=== PATIENT | female | born 1990 | race Caucasian/White ===

== ENCOUNTER 2021-11-01 09:35 | Outpatient (CLI) | payer BC, SELFPAY ==
--- OUTSIDE RECORDS SUMMARY | 2021-10-28 10:21 | XMS_ITS | Continuity of Care Document ---
:1990 Author Care Team Providers Name Role Phone SEEN Primary Care Physician Unavailable Hannah Schmitz CNM Attending Physician Unavailable Allergies, Adverse Reactions, Alerts Allergen Type Severity Reaction Last Verified Status Updated Adhesive Adverse Moderate itchy and October 26, Yes Active Reaction red 2021 Amoxicillin Allergy Mild rash October 26, Yes Active 2021 Lidocaine Allergy Severe hives October 26, Yes Active 2021 Fish Allergy Adverse Moderate just salmon October 26, Yes Acti ve Reaction 2021 Azithromycin Allergy Mild rash October 26, Yes Active 2021 Social History Smoking Status Status Start Date End Date Date of Observat ion Never smoked tobacco October 26, 2021 11:02am (finding) Observation Status Date of Observation Patient currently August 15, 2021 1:06pm Additional Data Assigned Sex Female Medications Medication Status Dose Units Route Directions Qty Days Start End Ins tructions Date Date Calcium Active 0 PO Daily Carbonate (Calcium) 600 Mg TAB Cholecalcifero Active 4000 UNIT OR Daily l (Vitamin D-3) 2,000 Unit TAB Doxylamine Active 25 MG PO Bedtime as 30 Succinate needed (Sleep) (Unisom) 25 Mg TAB Magnesium Active 1 TAB PO Daily as (Magnesium 250 needed Mg) 1 Tab TAB Vit Active 1 OR W/ Ferrous Fumara ( Multi +Dha) +Dha CAP Diphtheria/Tet Discontin 0.5 ML IM Once 1 August anus/Acell ued , , Pertussis 2021 2021 (Adacel) 0.5 3:39pm 3:51pm Ml INJ Immunizations Immunization Event Not Given 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 Lot Number Vac cine Date Reason Number Informatio n Statement (VIS) Deta il Tdap August 05 SANOFI [id number] (adolescent/adul , ) 2021 Procedures Procedure Date Performed Status CULTURE SCREEN ONLY October 05, 2021 completed STREP B DNA AMP PROBE October 05, 2021 completed OB US FOLLOW-UP PER FETUS October 05, 2021 completed BIOPHYS PROFIL W/O NST October 05, 2021 completed BIOPHYS PROFIL W/O NST October 11, 2021 completed OFFICE O/P EST LOW 20-29 MIN September 27, 2021 completed NON-STRESS TEST September 27, 2021 completed BIOPHYS PROFIL W/O NST September 27, 2021 completed Ob Bpp W/Ob Follow Up October 05, 2021 completed Ultrasound for October 11, 2021 completed biophysical profile Ultrasound for September 27, 2021 completed biophysical profile Ultrasound for October 19, 2021 completed biophysical profile Ultrasound for October 26, 2021 completed biophysical profile Relevant Diagnostic Tests and/or Laboratory Data Laboratory Results Test Date/Time Result Interpretation Reference Result Comment Performing Site Range Group B October 05, NEGATIVE NEGATIVE No Group B [facility] Streptococc 2021 Streptococcus 1999 [facility] DNA 1:33pm agalactiae DNA [facility] [address] Probe detected.A negative result does not rule out the presence of amplification inhibitors or assay specific nucleic acid in concentrations below the level of assay detection. Hemoglobin October 05, 14.3 12.0-16.0 [facility] [place] 2021 1999 [facility] 1:33pm [facility] [address] Diagnostic Imaging Reports Report Dictated Date/Time Dictated By Status September 27, 2021 2:26pm Natasha Cardenas MD [facility] [address] [place] [address] ~DEPARTMENT OF DI AGNOSTIC IMAGING~ Patient: CLAUDIA MARADIAGA MR #: [id number] : 1990 Age: 31 Sex: F Ordering MD: EPI ANTHONY Rm/ Bed: Loc: RAD Report #: [id number] US/OB BPP Date: 09/27/21 Signed For Patients: As a result of the entury Cures Act, medical imaging exams and procedure reports are release d immediately into your electronic medical record. You may view this repo rt before your referring provider. If you have questions, please contact y our health care provider. INDICATION: Mild polyhydramnios COMPARISON: 09/13/2021 TECHNIQUE: Real time juarez scale imaging of the fet us was performed. Without non-stress testing. FINDINGS: Sonographic imaging demonstrates a sing le living intrauterine gestation. Fetus demonstrates a regular cardiac ra te of 141 beats per minute. Fetus has a vertex position. The amniotic flu id volume appears increased and there is a single deepest pocket measur ement of 8.7 cm. AUGUSTA 31.4 cm. The fetus was active and demonstrated jonn l breathing movements. There was normal flexion and extension of the eveline nk and extremities. IMPRESSION: Normal biophysical profile score of 8 o ut of 8. Mild polyhydramnios with AUGUSTA measuring 31.4 cm. Incidentally noted is the umbilical cor d wrapping around the baby`s neck x2. Dictated by Natasha Cardenas MD @ 2 1:36:01 PM (Electronically Signed) Dictated By: NATASHA CARDENAS MD Signed By: NATASHA CARDENAS MD Report Dictated Date/Time Dictated By Status October 05, 2021 1:28pm [place] [address] ~DEPARTMENT OF DI AGNOSTIC IMAGING~ Patient: CLAUDIA MARADIAGA MR #: Candice [id number] : 1990 Age: 31 Sex: F Ordering MD: PENELOPE SCHMITZ CNM m/Bed: Loc: RAD Report #: [id number] US/OB BPP W/OB FOLLOW UP Date: 10/05/21 Signed For Patients: As a result of the entury Cures Act, medical imaging exams and procedure reports are release d immediately into your electronic medical record. You may view this repo rt before your referring provider. If you have questions, please contact y our health care provider. OB ULTRASOUND INDICATION: Covid during . TECHNIQUE: Transabdominal obstetric ul trasound. COMPARISON: Obstetric ultrasound 2021. MICHELLE by LMP: 10/30/2021. Gestational ag e: 36 w, 3d. 1. FINDINGS: Cervix: Not visualized. positioning: Vertex. Amniotic fluid: 7.5 cm SDP. Biophysical profile: 8/8. Gross body movements: 2. tone: 2. Respiratory activity: 2. Amniotic fluid SDP: 2. Placenta: Anterior. heart rate: 113-125. BPD: 9.2 cm, 37 w, 3 d, 85%. HC: 34.3 cm, 39 w, 4 d, 89%. AC: 33.3 cm, 37 w, 1 d, 81%. FL: 7.0 cm, 35 w, 5 d, 28%. EFW: 3118 g, 6 lb, 14 oz. age by this US: 37 w, 3 d. MICHELLE by this US: 10/23/2021. Percentile by MICHELLE: 72%. IMPRESSION: 1. Biophysical profile score 8/8. 2. heart rate is 113-125 beats p er minute. 3. Amniotic fluid index is 22.8 cm. Shaniqua Dias M.D. Diagnostic Radiologist [email or web address] PAUL/savi / be/Dictated by: Shaniqua Dias MD @ 10/05 8:36:00 PM (Electronically Signed) Dictated By: SHANIQUA DIAS MD Signed By: SHANIQUA DIAS MD Report Dictated Date/Time Dictated By Status October 11, 2021 10:00am Natasha Cardenas MD [address]~ Patient: CLAUDIA MARADIAGA MR #: Candice [id number] : 1990 Age: 31 Sex: F Ordering MD: PENELOPE SCHMITZ CNM R m/Bed: Loc: RAD Report #: [id number] US/OB BPP Date: 10/11/21 Signed For Patients: As a result of the entury Cures Act, medical imaging exams and procedure reports are release d immediately into your electronic medical record. You may view this repo rt before your referring provider. If you have questions, please contact y our health care provider. INDICATION: COVID IN COMPARISON: 10/05/2021 TECHNIQUE: Real time juarez scale imaging of the fet us was performed. Without non-stress testing. FINDINGS: Sonographic imaging demonstrates a sing le living intrauterine gestation. Fetus demonstrates a regular cardiac ra te of 131 beats per minute. Fetus has a vertex position. The amniotic fl uid volume appears normal and there is a single deepest pocket measurement of 7.9 cm. The fetus was active and demonstrated normal breathing movements . There was normal flexion and extension of the trunk and extremities. IMPRESSION: Normal biophysical profile score of 8 o ut of 8. Dictated by Natasha Cardenas MD @ 10/11/2021 10:58:19 AM (Electronically Signed) Dictated By: NATASHA CARDENAS MD Signed By: NATASHA CARDENAS MD Report Dictated Date/Time Dictated By Status October 19, 2021 9:58am [place] [address] ~DEPARTMENT OF DI AGNOSTIC IMAGING~ Patient: CLAUDIA MARADIAGA MR #: Candice [id number] : 1990 Age: 31 Sex: F Ordering MD: PENELOPE SCHMITZ R m/Bed: TRIAGE-1 Loc: OB Report #: [id number] US/OB BPP Date: 10/19/21 Signed For Patients: As a result of the entury Cures Act, medical imaging exams and procedure reports are release d immediately into your electronic medical record. You may view this repo rt before your referring provider. If you have questions, please contact y our health care provider. INDICATION: DECREASED MOVEMENT TECHNIQUE: Real time juarez scale imaging of the fet us was performed. COMPARISON: 10/11/2021 FINDINGS: Sonographic imaging demonstrates a sing le living intrauterine gestation. Fetus demonstrates a regular cardiac ra te of 157 beats per minute. Fetus has a vertex position. The placenta lie s left anterior. Amniotic fluid volume appears upper limits normal and there is a single deepest pocket of 8.6 cm. AUGUSTA 25.2 cm. The fetus was active and demonstrated n ormal breathing movements. There was normal flexion and extension of the trunk and extremities. IMPRESSION: Normal biophysical profile score 8/8. Upper limits normal amniotic fluid with four-quadrant AUGUSTA 25.2 cm. Dictated by Natasha Cardenas MD @ 2 10:01:53 AM (Electronically Signed) Dictated By: NATASHA CARDENAS MD Signed By: NATASHA CARDENAS MD Report Dictated Date/Time Dictated By Status October 26, 2021 Natasha Cardenas MD completed 10:12am [address]~ Patient: CLAUDIA MARADIAGA MR #: [id number] : 1990 Age: 31 Sex: F Ordering MD: PENELOPE SCHMITZ CNM m/Bed: Loc: RAD Report #: [id number] US/OB BPP Date: 10/26/21 Signed For Patients: As a result of the entury Cures Act, medical imaging exams and procedure reports are release d immediately into your electronic medical record. You may view this repo rt before your referring provider. If you have questions, please contact y our health care provider. INDICATION: COVID IN COMPARISON: none TECHNIQUE: Real time juarez scale imaging of the fet us was performed. Without non-stress testing. FINDINGS: Sonographic imaging demonstrates a sing le living intrauterine gestation. Fetus demonstrates a regular cardiac ra te of 128 beats per minute. Fetus has a vertex position. The amniotic flu id volume appears normal and there is a single deepest pocket measurement of 6.0 cm. Increased echoes noted within the amniotic fluid. The fetus wa s active and demonstrated normal breathing movements. There was normal f lexion and extension of the trunk and extremities. IMPRESSION: Normal biophysical profile score of 8 o ut of 8. Increased echoes within the amniotic fl uid, likely representing normal vernix caseosa although meconium contam ination not excluded. Dictated by Natasha Cardenas MD @ 2 10:20:58 AM (Electronically Signed) Dictated By: NATASHA CARDENAS MD Signed By: NATASHA CARDENAS MD Vital Signs Vital Reading Result Reference Range Collection Date/ Time Height 68 [in_i] October 05, 2021 1 :26pm Height 172.72 cm October 05, 2021 1 :26pm Weight 155 [lb_av] October 05, 2021 1 :26pm Weight 70.263477 kg October 05, 2021 1 :26pm Body Temperature 97.7 [degF] October 05, 2021 1:26pm Body Temperature 36.5 Janice October 05, 2021 1:26pm BP Systolic 110 mm[Hg] October 05, 2021 1 :26pm BP Diastolic 66 mm[Hg] October 05, 2021 1 :26pm Heart Rate 82 /min October 05, 2021 1 :26pm Respiratory rate 16 /min October 05, 2021 1:26pm Body surface area 1.83 m2 October 05, 2021 1:26pm BMI (Body Mass Index) 23.6 kg/m2 October 05, 2021 1:26pm Height 68 [in_i] October 11, 2021 9 :55am Height 172.72 cm October 11, 2021 9 :55am Weight 156 [lb_av] October 11, 2021 9 :55am Weight 70.454292 kg October 11, 2021 9 :55am Body Temperature 97.1 [degF] October 11, 2021 9:55am Body Temperature 36.17 Janice October 11, 2021 9:55am BP Systolic 112 mm[Hg] October 11, 2021 9 :55am BP Diastolic 72 mm[Hg] October 11, 2021 9 :55am Heart Rate 69 /min October 11, 2021 9 :55am Respiratory rate 18 /min October 11, 2021 9:55am Body surface area 1.84 m2 October 11, 2021 9:55am BMI (Body Mass Index) 23.7 kg/m2 October 11, 2021 9:55am Height 68 [in_i] October 26, 2021 10:31am Height 172.72 cm October 26, 2021 10:31am Weight 156 [lb_av] October 26, 2021 10:31am Weight 70.342271 kg October 26, 2021 10:31am Body Temperature 97.6 [degF] October 26, 2021 10:31am Body Temperature 36.44 Janice October 26, 2021 10:31am BP Systolic 110 mm[Hg] October 26, 2021 10:31am BP Diastolic 72 mm[Hg] October 26, 2021 10:31am Heart Rate 75 /min October 26, 2021 10:31am Body surface area 1.84 m2 October 26 10:31am BMI (Body Mass Index) 23.7 kg/m2 October 26, 2021 10:31am Advance Directives Advance Directive Response Recorded Date/Time Has patient completed a No October 26, 2021 11:02am Health Care Directive? Insurance Providers Guarantor Claudia Maradiaga Address [address] [place] [address] Contact Info. Home Phone: Payer Policy Id Coverage Id Subscriber's Subscriber Id Effective E xpiration Name Date Date Blue [id number] Claudia Maradiaga [id number] L [id number] Encounters Encounter Location(s) Arrival/Admit Date Discharge/Depart Date Provider(s) Registered Clinics October 26, 2021 Julieta ANTHONY 10:30am [facility] October 26, 2021 Stephanie ANTHONY - [facility] 10:30am [facility] Registered [place] October 26, 2021 [facility] 9:29am L CNM Departed Clinic [place] October 19, 2021 October 19, 2021 [facility] 9:06am 10:20am L CNM Office Visit [facility] October 11, [address] [facility] 11:00am L CNM Registered [place] October 11, [address] [facility] 9:24am L CNM Office Visit [facility] October 05, 2021 [facility] - [facility] 2:00pm L CNM Registered [place] October 05, [address] [facility] 12:41pm L CNM Departed [facility] September 27, 2021 September 27, 2021 3:35pm Rosangela [facility] 2:34pm L CNM Registered [place] [facility], [facility] Recent Diagnosis Onset Date COVID-19 COVID-19 affecting , antepartum care Assessments at 36.3 weeksRoutine OB visitBPP done for hx of covid in [id number] at 37.2 weeksRoutine OB [id number] at 39 3/7 weeks gestationRoutine OB Plan of Treatment Future Tests Future scheduled test information is unavailable Pending Tests Pending diagnostic test information is unavailable Future Visits Future appointment information is unavailable Referrals to Other Providers Referral information is unavailable Future Procedures Procedure Name Scheduled Date US OB BPP US OB BPP US OB BPP US OB BPP US OB BPP Future Medications Future medication information is unavailable Patient Instructions Patient instructions are unavailable
--- NOTE | 2021-11-01 09:45 | US_ITS ---
Final Report Patient: ABIGAIL SMALLS Facility:?[facility] Patient ID:?[id number] Site Patient ID:?[id number]. Site :?1990 Study:? OB Pelvis BPP-11/01/2021 10:38:31 AM Ordering Physician:?Nadir Bhatt Final Report: INDICATION: Post for dates, positive COVID TECHNIQUE: Ultrasound OB pelvis transabdominal biophysical profile COMPARISON: 10/26/2021 FINDINGS: Sonographic imaging demonstrates a single living intrauterine gestation. Fetus demonstrates a regular cardiac rate of 129 beats per minute. Fetus has a vertex orientation. The placenta lies anterior.. Amniotic fluid volume appears normal with single deepest pocket measuring 5.4 cm. breathing movements, motion, and tone were all observed. IMPRESSION: Single viable intrauterine with a biophysical profile 12/12. Dictated by Rodney Rogers MD @ 11/01/2021 10:59:57 AM (Electronic Signature)
== END 2021-11-01 09:36 | disposition home or self-care (01) ==
LOC: US 09:36
PROVIDERS: Visit Provider Advanced Practice Midwife
DX: O98.519 Other viral diseases complicating pregnancy, unspecified trimester (principal); U07.1 COVID-19
CPT/HCPCS: 76819

== ENCOUNTER 2021-11-08 07:08 | Inpatient (IN) | payer BC, SELFPAY ==
[2021-11-08] VITALS (29 sets, daily range): BP systolic 104–146; BP diastolic 52–81; PULSE 56–133; RESP 16–20; TEMP 36.5–36.6; O2SAT 81–98; BMI 25.3
[2021-11-08 08:35] LABS: SARS PCR* Negative SARS-CoV-2 (Negative)
--- NOTE | 2021-11-08 08:57 | W.PM.LDBA ---
Subjective History of Present Illness Narrative: Patient is being admitted to Labor and Delivery for IOL for post dates. She is a 31 year old at 41.2 weeks gestation. Her full history and physical was dictated by Jose L Cabrera CNM on 10/11/21. Please see this for details. OB Problem List Blood type: O positive 1. Transfer OB at 12 weeks and 2 days 2. History of PDA repair at 10 days of age.? Twin, born prematurely at 27 weeks 3. History of depression:? Therapy monthly 4. Covid positive on 06/07/21.? Quarantine through 06/17/21.? Covid instruction protocol completed by RNCC. ?? ? Level 2 ultrasound: Done ?? ? Growth u/s at 32 weeks: 84%ile ?? ? Growth ultrasound at 36 weeks: 72% EFW ?? ? Weekly antepartum testing beginning at 36 weeks: BPP ?? ? Induction of labor at 39 weeks:? Declines 5. Mild Poly based on 32 week growth per clinic policy; Does not meet ACOG definition AUGUSTA >30, SDP >12 ?? ? 5/6: AUGUSTA 24.9, SDP 11.5; Plan BPP/fluid measurement repeat next week ?? ? 09/13 AUGUSTA? 27.3, SDP 8.9 ?? ? 10/05 SDP 7.5 ?? ? 10/11? SDP 7.9 ?? ? 10/19 SDP 8.6, AUGUSTA 25.2 Poly, consider IOL 39-39.6 wks if continues OB - H&P: Exam Physical Exam: Vital signs: Pulse BP Pulse Ox 75 130/81 80 L 11/08/21 07:29 11/08/21 07:29 11/08/21 07:29 Constitutional: Constitutional: no acute distress Routine Neck Exam: Neck: Present full ROM Detailed Labor and Delivery Exam: Patient Gravid: yes Dilation (cm): 0 Effacement (%): 50 Cervix position: posterior Consistency: medium Contraction frequency (min): 6 (every 6-12 min) Tachysystole: No Contraction intensity: Mild Fetus (Single): Station: -2 Heart Rate Baseline: 125 Monitor Accelerations: Present Monitor Decelerations: None [facility] Variability: Moderate (11-25) (6-25) Routine Extremities Exam: Extremities: Present full ROM Routine Back/Spine/Pelvis Exam: Back/Spine: full ROM Routine Neurological Exam: Present alert and oriented X3 Routine Psychiatric Exam: Present normal affect and normal thought process OB - Problem Based A/P Additional Plan (1) Elective induction of labor planned: Status: Acute (2) Post term , 41 weeks: Status: Acute Plan ASSESSMENT:? at 41.2 weeks gestation? GBS negative? Uncomplicated ? Postterm IOL? ?? PLAN:?? 1. Reviewed risks and benefits of IOL with Pitocin vs Cytotec (vaginal or PO) vs expectant management. Pt prefers vaginal Cytotec. Pitocin to follow if needed.?Discussed patient concerns if IOL doesn't induce labor and options of going home vs. other IOL options (Cervidil, Cook catheter). 2. Candidate for analgesia of choice. Planning unmedicated .?? 3. Anticipate ?? 4. IV if indicated 5. Intermittent monitor per policy for Cytotec. ? Delivery/Labor/Induction Plan Plan: induction Induction method: per misoprostol protocol
[2021-11-08] MEDS: miSOPROStoL 25 MCG/0.25 TABLET VAGINAL ×2 (09:06→13:08)
[2021-11-08 10:27] LABS: Hemoglobin* 14.1 gm/dL (12.0-16.0)
[2021-11-08 12:09] LABS: Hepatitis B Surface Antibody* Positive (Negative)
[2021-11-08] MEDS: LACTATED RINGERS 1000 ML 1,000 ML 125 ML IV (22:43)
--- NOTE | 2021-11-08 22:50 | P.OBPN_ITS ---
Pain Control Pain control: nitrous oxide Comments: Evaluated patient at 1720 for possible Cytotec placement. At that time she was geovanna regularly with painful contractions. SVE 8/90/0. She continued to labor on her own from there. She has experienced significant hip pain bilaterally for most of this time. AROM at 1951 with clear fluid. Began pushing at 2011. She has changed position frequently and pushing in multiple different positions. She is using nitrous intermittently. She was making progress initi ally but has not much descent in the last hour or so. Baby is potentially asynclitic or OP. Patient is feeling defeated. Options presented to proceed with position changes and pushing, get an epidural/intrathecal, or to consult with OB for a . Patient opted to get an epidural/intrathecal at this time. Contractions Monitor mode: External Contraction frequency: 2 (every 1.5-3 min) Contraction pattern: Regular Contraction intensity: Strong/Firm Pelvic Exam Dilation (cm): 10 Effacement (%): 100 Station: +2 Comments: Small part of an anterior cervix felt with this exam. Questionable if it is starting to swell. Fetus (Single) Amniotic Membrane Status: AROM status: Category ll Comments: Recurrent variable decelerations with most contractions down to the 90 with good retunr to baseline, good variability, and accelerations present. Baseline 125- 130. Assessment and Plan Assessment: active labor Plan: continue present management and other (epidural)
[2021-11-08] MEDS: LACTATED RINGERS 1000 ML 1,000 ML IV (23:33)
[2021-11-09] VITALS (34 sets, daily range): BP systolic 93–129; BP diastolic 52–81; PULSE 55–80; RESP 12–16; TEMP 36.4–37.2; O2SAT 92–98
[2021-11-09] MEDS: LACTATED RINGERS 1000 ML 1,000 ML 125 ML IV (00:38)
--- NOTE | 2021-11-09 00:53 | PM.OBPNL ---
Pain Control Time Seen by Provider: 00:00 Date Seen: 11/09/21 Comments: I was called by Janeen Cabrera CNM with report of prolonged deceleration after patient received intrathecal. She has been completely dilated since 8:50 p.m.. She was noted to have meconium-stained fluid during her 2nd stage. She pushed initially without any regional anesthesia, but experienced severe hip pain. Immediately after intrathecal, she had a prolonged deceleration into the 70s several minutes. Thereafter, well baseline around 130 was reestablished, the fetus exhibited recurrent late decelerations. After proximally 1/2 hour, late decelerations became intermittent, but occasionally prolonged. Contractions Monitor mode: External Contraction frequency: 2 (every 1.5-3 min) Contraction pattern: Regular Contraction intensity: Strong/Firm Pelvic Exam Dilation (cm): Ten Station: +1-2 2 Comments: Suspected OP presentation, no descent with maternal expulsive efforts Fetus (Single) Amniotic Membrane Status: AROM status: Category ll Comments: as above Assessment and Plan Comments: Nonreassuring status in the setting of prolonged 2nd stage. Now with arrest of descent. I recommended for these indications. We discussed risks of procedure, including bleeding, thromboembolism, infection, uterine scarring, prolonged recovery. Consent form signed by patient.
--- NOTE | 2021-11-09 01:23 | PM.OBPNL ---
Pain Control Comments: Patient received requested intrathecal at 2324. At 2333 a deceleration to 60-70's noted that lasted for 9 minutes before returning to 90-115. Blood pressures stable during this time. Dr. Zavaleta called and presence requested at 2337. Chao lagos called at 2340. FHT returned to a baseline of 100-120 with variable decelerations after every contraction. Dr. Zavaleta arrived on the unit at 2356 and was present in the room to evaluate at 0004. FHT recovered enough to begin pushing again around 0025. No descent noted with contractions and patient was no longer able to feel contractions or pressure to be able to effectively push. variable decelerations had decreased in frequency before pushing began but did return with pushing. Patient consented with Dr. Zavaleta for a at 0045. Contractions Monitor mode: External Contraction frequency: 2 (every 1.5-3 min) Contraction pattern: Regular Contraction intensity: Strong/Firm Fetus (Single) Amniotic Membrane Status: AROM status: Category ll Assessment and Plan Assessment: other ( intolerance to labor) Plan:
[2021-11-09] MEDS: ePHEDrine sulfate 5 MG/ML inj 10 MG IVP (01:50)
--- NOTE | 2021-11-09 02:02 | P.OBPRC_ITS ---
Procedure Pre-op/Post-op diagnoses: Pre-Op/Post-Op Diagnoses Operation Date: 11/09/21 00:15 <No data on this case meets the specified criteria> Procedure Done: Global Procedure Details: Procedures Operation Date: 11/09/21 00:15 Actual Procedure Side Surgeon p Section Not Applicable Kenia Zavaleta MD Estimated blood loss (mL): 779 Disposition: PACU Anesthesia type: General Complications: Uterine atony, managed with oxytocin and a single dose of IM Methergine. She was also given TXA to limit intraoperative bleeding. Narrative: PREOPERATIVE DIAGNOSIS: Nonreassuring status Arrest of descent POSTOPERATIVE DIAGNOSIS: Nonreassuring status Arrest of descent PROCEDURE: Primary low-transverse section SURGEON: Kenia Zavaleta MD ANESTHESIA: General IV FLUIDS: 1200 mL crystalloid QBL: 779 mL FINDINGS: 1. Male infant, cephalic 0P presentation, double nuchal cord, Apgars 8 and 9, weight pending at time of this dictation 2. Normal appearance to uterus, bilateral tubes and ovaries COMPLICATIONS: Uterine atony without hemorrhage PROCEDURE IN DETAIL: Patient was taken to the operating with IV running. She received 2 g of cefazolin in preoperative prophylaxis. Hernández catheter had previously been placed. She was prepped and draped in the usual sterile fashion in dorsal supine position. Given a previous reaction to her intrathecal, decision was made to proceed with general anesthesia. Once this was established, incision was made with a scalpel and carried down to the underlying layer of fascia with scalpel. The fascia was nicked in the midline with a hemostat and this incision was extended laterally with scissors. The superior and inferior aspects of the fascial incision were dissected off the underlying rectus muscles with sharp dissection. The rectus sheath was in the midline bluntly. Peritoneum was entered bluntly. Scissors was used to widen the peritoneal opening. [place] O retractor was placed. The uterus was incised in a transverse fashion on the lower uterine segment well above the bladder reflection. This incision was extended with traction. Infant's head was grasped the hysterotomy and delivered with the help of fundal pressure. was dried and found to be vigorous. After slight delay, the cord was doubly clamped and cut. was passed to attending mason foreman/superintendant. The placenta was delivered with gentle traction on the cord. The uterus was cleared of all clots and membranes with dry laparotomy pads. The uterus was grasped along the edges of the hysterotomy with ring forceps. The hysterotomy was reapproximated with 0 Vicryl in a running, locked fashion. Second layer of the same suture was used in imbricating fashion to obtain excellent hemostasis. Bilateral tubes and ovaries were examined and found to be normal appearance. The cul-de-sac and the gutters were cleared of clots and debris with a dampened laparotomy sponge. [place] O retractor was removed. Hysterotomy was re-examined and found to be hemostatic. The peritoneum was reapproximated with 2-0 Vicryl in a running fashion. The fascia was closed with a running suture of 0 Vicryl. The subcutaneous fat was irrigated and Bovie used on bleeding vessels. This layer was reapproximated with interrupted sutures of 2-0 plain gut suture. The skin was closed in subcuticular fashion with 4-0 Vicryl. Surgical glue was applied above this, as was a dressing. Patient tolerated procedure well was taken to recovery area in stable condition. OB Delivery Proc Additional Procedures Tubal Ligation at the time of : No
--- NOTE | 2021-11-09 02:29 | W.ANESCHARGE ---
Anesthesia Charges Start Date/Time Anesthesia Start Date: 11/09/21 Anesthesia Start Time: 01:04 Stop Date/Time Anesthesia Stop Date: 11/09/21 Anesthesia Stop Time: 02:11 Summary Emergency: Yes
[2021-11-09] MEDS: fentaNYL 100 MCG/2 ML inj 50 MCG IVP (02:40)
[2021-11-09] MEDS: ACETAMINOPHEN 500 MG TABLET 1000 MG PO ×4 (04:49→22:49)
--- NOTE | 2021-11-09 07:37 | SUR.PHASEI ---
Late entry. Patient to PACU per patient bed. VSS. Incisional sites are dry with glue intact. Fundus firm throughout Phase I Recovery with little vaginal flow. Medicated for pain x 1 with good results. Patient met discharge criteria for Phase I Recovery and is transferred to the OB unit.
[2021-11-09] MEDS: KETOROLAC 30 MG/ML inj IVP ×3 (07:48→20:12)
[2021-11-09] MEDS: DOCUSATE SODIUM 100 MG CAPSULE PO (08:53)
--- NOTE | 2021-11-09 08:55 | PM.ANBPRC ---
PFSH PFSH Social History Smoking Status: Former smoker Meds Home Medications and Allergies Home Medications Medication Instructions Recorded Confirmed Type calcium carbonate 500 mg calcium 1,000 mg PO QDAY 11/01/21 11/08/21 History (1,250 mg) chewable tablet (Calcium 500) cholecalciferol (vitamin D3) 50 4,000 unit PO QDAY cap 11/01/21 11/08/21 History mcg (2,000 unit) capsule doxylamine succinate 25 mg tablet 25 mg PO ONCE PRN 11/01/21 11/08/21 History (Unisom (doxylamine)) magnesium 250 mg tablet 250 mg PO QDAY 11/01/21 11/08/21 History prenat.vits,lazaro,[id number] 1 tab PO QDAY 11/01/21 11/08/21 History Allergies Allergy/AdvReac Type Severity Reaction Status Date / Time lidocaine Allergy Severe Hives Verified 11/01/21 10:30 amoxicillin Allergy Mild Rash Verified 11/01/21 10:30 azithromycin Allergy Mild Rash Verified 11/01/21 10:30 salmon oil Allergy Unknown Verified 11/08/21 07:44 adhesive AdvReac Intermediate itchy and Verified 11/01/21 10:30 red Results Labs Labs: Laboratory Results - last 24 hr 11/08/21 11/08/21 11/08/21 10:10 10:10 10:10 Hgb 14.1 Hep Bs Antibody Positive Blood Type O Positive Antibody Screen NEGATIVE Vital Signs Vital Signs: Last Vital Signs Temp 97.7 F 11/09/21 07:48 Pulse 61 11/09/21 07:38 Resp 16 11/09/21 07:38 BP 100/62 11/09/21 07:38 Pulse Ox 98 11/09/21 07:38 Weight: 71.214 kg Height: 167.64 cm Anesthesia Procedures Epidural Insertion Patient Location: OB Start Time: 23:15 Stop Time: 23:55 Start Date: 11/08/21 Stop Date: 11/08/21 Reason for Block: procedure for pain Patient Position: sitting Performed By: José Arambula Preanesthetic Checklist: IV checked, risks and benefits discussed, surgical consent, monitors and equipment checked, pre-op evaluation, timeout performed and anesthesia consent Prep: chlorhexidine gluconate Monitoring: blood pressure monitoring, continuous pulse oximetry and heart rate Approach: midline Vertebral Space: lumbar (1-5) Needle Type: other (25g pencan) Injection Technique: single-shot Catheter Type: none Events: cerebrospinal fluid and other (1/2 ml 0.75% marcaine and 25mcg fentanyl)
[2021-11-09 12:49] LABS: Hepa B Virus Surf Ag Conf Non Confirmed (Non Confirmed)
[2021-11-09] MEDS: SODIUM CHLORIDE 0.9 % (FLUSH) 10 ML SYRINGE IVF (20:16)
[2021-11-10] VITALS (11 sets, daily range): BP systolic 101–125; BP diastolic 63–74; PULSE 67–71; RESP 16; TEMP 36.6–37.2; O2SAT 96–99
[2021-11-10] MEDS: KETOROLAC 30 MG/ML inj IVP ×2 (03:32→09:37)
[2021-11-10] MEDS: SODIUM CHLORIDE 0.9 % (FLUSH) 10 ML SYRINGE IVF (03:34)
[2021-11-10] MEDS: ACETAMINOPHEN 500 MG TABLET 1000 MG PO ×4 (05:01→23:22)
[2021-11-10] MEDS: DOCUSATE SODIUM 100 MG CAPSULE PO (05:02)
[2021-11-10 07:20] LABS: Hemoglobin* 11.7 gm/dL (12.0-16.0)
--- NOTE | 2021-11-10 07:55 | P.OBPN_ITS ---
OB - PN: A/P Assessment and Plan (1) Elective induction of labor planned: Status: Acute (2) Post term , 41 weeks: Status: Acute Plan Plan: routine postop care Comments: Anticipate discharge tomorrow or Sunday.? OB - PN: Subj Subjective Patient comments: no complaints, pain well controlled, tolerating diet and flatus present status: and other (under bili lights) [place] feeding status: exclusively (expressing and syrine feeding breastmilk to supplement) Narrative: The patient feels well.? The pain is well controlled with current medications.? She has no new complaints.? Urinary output is adequate and she is voiding without difficulty.? Has a good appetite, is tolerating a general diet, is passing flatus, and has not had a bowel movement.? Has?small amount of rubra lochia.? She is ambulating well.? OB - PN: Obj Exam Physical Exam: Vital signs: Temp Pulse Resp BP Pulse Ox 97.8 F 57 L 16 103/58 L 96 11/09/21 23:00 11/09/21 23:00 11/09/21 23:00 11/09/21 23:00 11/09/21 23:00 Constitutional: Constitutional: no acute distress Routine Neck Exam: Neck: Present full ROM Routine Abdominal Exam: Fundus: Present firm (U/2) Routine Back/Spine/Pelvis Exam: Back/Spine: Present full ROM Routine Neurological Exam: Neurological: Present alert and oriented X3 Routine Psychiatric Exam: Psychiatric: Present normal affect and normal thought process Wound Management: Method: adhesive (Dressing dry, clean and intact. Will remove today in the shower) OB - PN: Obj Data Labs Labs: Laboratory Results - last 24 hr 11/08/21 10:10 Hep Bs Ag Confirmation Non Confirmed
[2021-11-10] MEDS: IBUPROFEN 600 MG TABLET PO ×2 (13:38→19:43)
--- NOTE | 2021-11-10 14:09 | PM.OBDSCS1 ---
DS: Providers Provider Date of admission: 11/08/21 07:08 Primary care physician: Not a Local Provider Admitting Clinician: Rupa Negrete CNM Consults: Kenia Zavaleta MD Attending Physician on discharge: Rupa Negrete CNM DS: Diagnosis Discharge Diagnosis (1) Elective induction of labor planned: Status: Acute (2) Post term , 41 weeks: Status: Acute (3) S/P primary low transverse : Status: Acute Exam Const: Vital Signs, click to edit/add: Vital Signs - 24 hr 11/09/21 14:15 11/09/21 16:46 11/09/21 16:49 Temperature 98.1 F 98.0 F 98.0 F Pulse Rate [Pulse Oximeter] 73 Respiratory Rate 16 Blood Pressure [Ri ght Arm] 112/66 Pulse Oximetry 97 11/09/21 17:45 11/09/21 19:37 11/09/21 23:00 Temperature 98.1 F 98.2 F 97.8 F Pulse Rate [Pulse Oximeter] 73 57 L Respiratory Rate 16 16 Blood Pressure [Ri ght Arm] 101/59 L 103/58 L Pulse Oximetry 96 96 11/10/21 08:23 11/10/21 09:37 11/10/21 10:56 Temperature 98.0 F 98 F 98.0 F Pulse Rate [Pulse Oximeter] 69 Respiratory Rate 16 Blood Pressure [Ri ght Arm] 101/67 Pulse Oximetry 96 11/10/21 11:13 11/10/21 12:35 11/10/21 13:38 Temperature 98.0 F 99 F 98.0 F Pulse Rate [Pulse Oximeter] 67 Respiratory Rate 16 Blood Pressure [Ri ght Arm] 109/63 Pulse Oximetry 97 DS: Data Data Completed and Pending Labs on day of discharge: Labs from last 24 hours 11/10/21 07:06 Hgb 11.7 L OB - DS: Summary Hospital Course Hospital Course: The patient is a 31 year old G [] P [] at [] weeks gestation that was admitted to the Center on 11/08/21 for []. She had an [uncomplicated/complicated] [vaginal/] delivery. She delivered a viable [male/female] infant. She is [breast/bottle] feeding. the patient has done well. Peripartum Data Procedures: Procedures Operation Date: 11/09/21 00:15 Actual Procedure Side Surgeon p Section Not Applicable Kenia Zavaleta MD Infant Gender: Male Time Spent with Patient Time attestation: Total time spent providing and/or coordinating discharge services: Discharge Plan Discharge Disposition: Home, Self-Care Date of Admission: 11/08/21 07:08 Attending Provider on Discharge: Kenia Zavaleta Primary Care Provider: Provider,Not a Local Condition: Stable Anticipated Discharge Date/Time: 11/11/21 12:00 Discharge Medications: New acetaminophen 500 mg Tablet 1,000 mg PO Q6H PRN (Reason: pain/fever) Qty: 1 0RF docusate sodium 100 mg Capsule 100 mg PO DAILY 30 Days Qty: 30 0RF ibuprofen 600 mg Tablet 600 mg PO Q6H PRN (Reason: Pain) 45 Days Qty: 60 0RF oxycodone 5 mg Tablet 5 - 10 mg PO Q4H PRN (Reason: Pain) 7 Days Qty: 20 0RF oxycodone 5 mg tablet 5 mg PO Q4H PRN (Reason: pain) Qty: 20 0RF ibuprofen 600 mg tablet 600 mg PO Q6H PRNQty: 30 0RF Continued prenat.vits,lazaro,[id number] Tablet 1 tab PO QDAY 0RF cholecalciferol (vitamin D3) 50 mcg (2,000 unit) capsule 4,000 unit PO QDAY 0RF calcium carbonate [Calcium 500] 500 mg calcium (1,250 mg) tablet,chewable 1,000 mg PO QDAY 0RF magnesium 250 mg tablet 250 mg PO QDAY 0RF Held Unisom (doxylamine) 25 mg tablet 25 mg PO ONCE PRN0RF Discharge Orders: Discharge Order (Routine); Ordered 11/11/21 Ordered By: Janeen Cabrera Patient Education: OB /Breast Feeding Activity Restrictions/Additional Instructions: Discharge instructions were reviewed with the patient including signs and symptoms of infection and home going medications. Lifting Restrictions: 10 pounds for [address] while taking pain meds. Off Work or School for 6 weeks. Symptoms to report to doctor: -Bleeding that saturates more than one pad per hour ?-Passing clots larger than the size of a golf ball ?-Pain not relieved by prescribed medication ?-Fever above 100.4 degrees Fahrenheit ?-A foul vaginal odor ?-Difficulty in emotions, mood and functions ?-Thoughts of hurting yourself and/or ?-Painful, reddened area in your breast ?-Any drainage, redness or tenderness in your IV/epidural site ?-Severe headache that doesn't improve after taking medications ?-Changes in vision, including temporary loss of vision, blurred vision, and/or light sensitivity ?-Upper abdominal pain (usually under ribs on the right side) ?-Decrease in urination or painful, frequent urinating ?-Chest pain ?-Shortness of breath ?-Tenderness or pain with redness and/swelling in the calf(s) of your leg Follow Up in clinic in 2 and 6 weeks. consultation services are available to all mothers and babies for the first year after delivery.? To make an appointment, please call [phone].Discharge instructions were reviewed with the patient including signs and symptoms of infection and home going medications. Activity Level: Activity as Tolerated and No strenuous activity Activity Detail: Lifting Restrictions: 10 pounds for 6 weeks Discharge Diet: Regular Follow Up Appointments: Provider,Not a Local [Primary Care Provider] - Forms: MyHealth Info Instructions Discharge Comment: Stable C/S Day 2
--- NOTE | 2021-11-10 16:19 | PM.GYNHPPRM ---
ANIMAL TRAINER: H&P: HPI Surgical History of Present Illness Last H&P: No Data to Display Narrative: Claudia Maradiaga is a 31 year old female [facility] PFS Surgical History (Updated 11/10/21 @ 14:11 by Kenia Zavaleta MD) S/P primary low transverse Social History Smoking Status: Former smoker Meds Home Medications and Allergies Home Medications Medication Instructions Recorded Confirmed Type calcium carbonate 500 mg calcium 1,000 mg PO QDAY 11/01/21 11/08/21 History (1,250 mg) chewable tablet (Calcium 500) cholecalciferol (vitamin D3) 50 4,000 unit PO QDAY cap 11/01/21 11/08/21 History mcg (2,000 unit) capsule doxylamine succinate 25 mg tablet 25 mg PO ONCE PRN 11/01/21 11/08/21 History (Unisom (doxylamine)) magnesium 250 mg tablet 250 mg PO QDAY 11/01/21 11/08/21 History prenat.vits,lazaro,[id number] 1 tab PO QDAY 11/01/21 11/08/21 History Allergies Allergy/AdvReac Type Severity Reaction Status Date / Time lidocaine Allergy Severe Hives Verified 11/01/21 10:30 amoxicillin Allergy Mild Rash Verified 11/01/21 10:30 azithromycin Allergy Mild Rash Verified 11/01/21 10:30 salmon oil Allergy Unknown Verified 11/08/21 07:44 adhesive AdvReac Intermediate itchy and Verified 11/01/21 10:30 red ANIMAL TRAINER - Exam Physical Exam: Vital signs: Temp Pulse Resp BP Pulse Ox 98.0 F 67 16 109/63 97 11/10/21 14:35 11/10/21 12:35 11/10/21 12:35 11/10/21 12:35 11/10/21 12:35 ANIMAL TRAINER - Results Labs Labs: Short CBC 11/10/21 Range/Units 07:06 Hgb 11.7 L (12.0-16.0) gm/dL Assessment and Plan Assessment and plan (1) Elective induction of labor planned: Status: Acute (2) Post term , 41 weeks: Status: Acute (3) S/P primary low transverse : Status: Acute
[2021-11-11] MEDS: IBUPROFEN 600 MG TABLET PO ×3 (02:07→15:18)
[2021-11-11] MEDS: ACETAMINOPHEN 500 MG TABLET 1000 MG PO ×2 (05:22→11:46)
--- NOTE | 2021-11-11 07:48 | P.DS_ITS ---
DS: Providers Provider Date of admission: 11/08/21 07:08 Primary care physician: Not a Local Provider Admitting Clinician: Rupa Negrete CNM Attending Physician on discharge: Rupa Negrete CNM Date of Discharge: 11/11/21 DS: Diagnosis Discharge Diagnosis (1) Elective induction of labor planned: Status: Acute (2) Post term , 41 weeks: Status: Acute (3) S/P primary low transverse : Status: Acute Exam Const: Vital Signs, click to edit/add: Vital Signs - 24 hr 11/10/21 08:23 11/10/21 09:37 11/10/21 10:56 Temperature 98.0 F 98 F 98.0 F Pulse Rate [Pulse Oximeter] 69 Respiratory Rate 16 Blood Pressure [Ri ght Arm] 101/67 Pulse Oximetry 96 11/10/21 11:13 11/10/21 12:10 11/10/21 12:35 Temperature 98.0 F 98 F 99 F Pulse Rate [Pulse Oximeter] 67 Respiratory Rate 16 Blood Pressure [Ri ght Arm] 109/63 Pulse Oximetry 97 11/10/21 13:38 11/10/21 14:35 11/10/21 16:33 Temperature 98.0 F 98.0 F 98.5 F Pulse Rate [Pulse Oximeter] 68 Respiratory Rate 16 Blood Pressure [Ri ght Arm] 118/74 Pulse Oximetry 99 11/10/21 17:23 11/10/21 23:25 Temperature 98.0 F 98.1 F Pulse Rate [Pulse Oximeter] 71 Respiratory Rate 16 Blood Pressure [Ri ght Arm] 125/74 Pulse Oximetry 96 Documenting provider has reviewed patient's vital signs: yes Common normals: no apparent distress, average body habitus, oriented x3, no limitations, healthy appearing, alert and well nourished General appearance: cooperative and comfortable HENMT: Common normals: external ears normal and external nose normal Head and scalp: normal to inspection Face and sinus: normal facial exam Nose: external nose normal External ear: external ears normal Eye: General eye: normal appearance of both eyes Neck & C-Spine: Common normals: full ROM and no JVD General: normal visual inspection Chest: Common normals: inspection of chest normal and inspection of breasts normal Resp: Common normals: normal respiratory effort, no retractions, no use of accessory muscles and clear to auscultation bilaterally Effort & inspection: able to speak in complete sentences and symmetric chest movement Auscultation: clear to auscultation bilaterally Cardio: Common normals: no JVD, regular rate, regular rhythm, S1 normal heart sound, S2 normal heart sound, no gallops, no clicks, no murmurs and no rub Rate: regular rate Rhythm: regular rhythm Heart sounds: S1 normal and S2 normal GI: Common normals: Normal to inspection, nondistended, normoactive bowel sounds present and soft to palpation Palpation: soft : Common normals: external appearance normal OB/external & speculum: Yes external exam normal Uterus: U/2 Lochia: small Extremity: Common normals: normal to inspection and full ROM Neuro: Common normals: oriented x3 Sensorium/orientation: alert Psych: Common normals: mental status grossly normal DS: Data Data Completed and Pending Labs on day of discharge: Labs from last 24 hours 11/10/21 11/09/21 07:06 03:58 Hgb 11.7 L Surg PTH (Off-Site) See Scanned Report OB - DS: Summary Hospital Course Hospital Course: The patient is a 31 year old G 1 P 1 at 41.5 weeks gestation that was admitted to the Center on 11/08/21 for post dates IOL. She had an uncomplicated primary delivery after arrest of descent. She delivered a viable male infant. She is breast feeding. It has improved starting early this morning. She is feeling good about how it is going now. Baby was under the bili lights and sleepy previously but is now more awake, latching well, and no longer under lights. the patient has done well. She is passing gas but has not had a BM. She is having a headache that increases when she is sitting or standing and is improved when laying down. She talked to anesthesia yesterday about a blood patch but was hesitant at that time. She would like to talk with them again today about getting a blood patch. Peripartum Data Procedures: Procedures Operation Date: 11/09/21 00:15 Actual Procedure Side Surgeon p Section Not Applicable Kenia Zavaleta MD complications: spinal headache [place] Gender: Male Infant Discharge Plan: Home Status at Discharge Functional status at discharge: independent ambulation Overall status at discharge: patient is progressing back to baseline Time Spent with Patient Time attestation: Total time spent providing and/or coordinating discharge services: Quality: Stroke Reason for No Antithrombin at DC: Treatment not indicated Reason for No Anticoagulant at DC: Treatment not indicated Contraindication Not Initiating IV-Tpa: Treatment not indicated Contraindication Antithromb by Day Two: Treatment not indicated Contraindication No Statin at DC: Treatment not indicated Discharge Plan Discharge Disposition: Home, Self-Care Date of Admission: 11/08/21 07:08 Attending Provider on Discharge: Kenia Zavaleta Primary Care Provider: Provider,Not a Local Condition: Stable Anticipated Discharge Date/Time: 11/11/21 12:00 Discharge Medications: New acetaminophen 500 mg Tablet 1,000 mg PO Q6H PRN (Reason: pain/fever) Qty: 1 0RF docusate sodium 100 mg Capsule 100 mg PO DAILY 30 Days Qty: 30 0RF ibuprofen 600 mg Tablet 600 mg PO Q6H PRN (Reason: Pain) 45 Days Qty: 60 0RF oxycodone 5 mg Tablet 5 - 10 mg PO Q4H PRN (Reason: Pain) 7 Days Qty: 20 0RF oxycodone 5 mg tablet 5 mg PO Q4H PRN (Reason: pain) Qty: 20 0RF ibuprofen 600 mg tablet 600 mg PO Q6H PRNQty: 30 0RF Continued prenat.vits,lazaro,[id number]-eorbr Tablet 1 tab PO QDAY 0RF cholecalciferol (vitamin D3) 50 mcg (2,000 unit) capsule 4,000 unit PO QDAY 0RF calcium carbonate [Calcium 500] 500 mg calcium (1,250 mg) tablet,chewable 1,000 mg PO QDAY 0RF magnesium 250 mg tablet 250 mg PO QDAY 0RF Held Unisom (doxylamine) 25 mg tablet 25 mg PO ONCE PRN0RF Discharge Orders: Discharge Order (Routine); Ordered 11/11/21 Ordered By: Janeen Cabrera Patient Education: OB /Breast Feeding Activity Restrictions/Additional Instructions: Discharge instructions were reviewed with the patient including signs and symptoms of infection and home going medications. Lifting Restrictions: 10 pounds for [address] while taking pain meds. Off Work or School for 6 weeks. Symptoms to report to doctor: -Bleeding that saturates more than one pad per hour ?-Passing clots larger than the size of a golf ball ?-Pain not relieved by prescribed medication ?-Fever above 100.4 degrees Fahrenheit ?-A foul vaginal odor ?-Difficulty in emotions, mood and functions ?-Thoughts of hurting yourself and/or ?-Painful, reddened area in your breast ?-Any drainage, redness or tenderness in your IV/epidural site ?-Severe headache that doesn't improve after taking medications ?-Changes in vision, including temporary loss of vision, blurred vision, and/or light sensitivity ?-Upper abdominal pain (usually under ribs on the right side) ?-Decrease in urination or painful, frequent urinating ?-Chest pain ?-Shortness of breath ?-Tenderness or pain with redness and/swelling in the calf(s) of your leg Follow Up in clinic in 2 and 6 weeks. consultation services are available to all mothers and babies for the first year after delivery.? To make an appointment, please call [phone].Discharge instructions were reviewed with the patient including signs and symptoms of infection and home going medications. Activity Level: Activity as Tolerated and No strenuous activity Activity Detail: Lifting Restrictions: 10 pounds for 6 weeks Discharge Diet: Regular Follow Up Appointments: Provider,Not a Local [Primary Care Provider] - Forms: MyHealth Info Instructions Discharge Comment: Stable C/S Day 2
[2021-11-11 08:40] VITALS: BP 117/63; PULSE 58; RESP 16; TEMP 36.3; O2SAT 97
[2021-11-11 14:00] VITALS: BP 113/71; PULSE 70; RESP 16; TEMP 36.7; O2SAT 97
== END 2021-11-11 15:34 | disposition home or self-care (01) | DRG 540 ==
PROVIDERS: Obstetrics & Gynecology; Admitting Provider Advanced Practice Midwife; Visit Provider Advanced Practice Midwife
PROC: 10D00Z1 Extraction of Products of Conception, Low, Open Approach (ICD-10-PCS; CPT 59514; principal; 2021-11-09 00:15)
DX: O48.0 Post-term pregnancy (principal); O76 Abnormality in fetal heart rate and rhythm complicating labor and delivery; O32.4XX0 Maternal care for high head at term, not applicable or unspecified; O62.2 Other uterine inertia; O77.0 Labor and delivery complicated by meconium in amniotic fluid; Z3A.41 41 weeks gestation of pregnancy; Z37.0 Single live birth
CPT/HCPCS: 01968; 36415; 59200; 85018; 86706; 86850; 86900; 86901; 87341; 87635; 88307; 99140; 99211; 99213; A9270; J0330; J1170; J1885; J2210; J2405; J2590; J2704; J2710; J3010; J7120

== ENCOUNTER 2021-12-07 09:38 | Outpatient (CLI) | payer BC, SELFPAY ==
--- NOTE | 2021-12-09 09:18 | P.LACCB_ITS ---
Consult Note - Mom Date of Visit Date of visit: 12/09/21 customer sales consultant: Chely Helm Patient's Information Phone number: [phone] : 1 Para: 1 Allergies lidocaine Allergy (Severe, Verified 11/23/21 10:56) Hives amoxicillin Allergy (Mild, Verified 11/23/21 10:56) Rash azithromycin Allergy (Mild, Verified 11/23/21 10:56) Rash salmon oil Allergy (Unknown, Verified 11/23/21 10:56) adhesive Adverse Reaction (Intermediate, Verified 11/23/21 10:56) itchy and red Mother's Medical History: Medical History (Updated 11/19/21 @ 00:01 by ) Elective induction of labor planned Post term , 41 weeks Work Plans: 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 Jean Jaundice: No Reason for Consult Reason for Consult: weighted feeding, nipple shield Past Experience Past Experience: No Current Frequency of Day Feedings: every 2 - 2.5 hours Frequency of Night Feedings: about every 3 hours Both Breasts: Yes Suck: fairly strong Latch: wide Length of Time: 15 - 20 minutes/side Pumping Pumping: Yes (mom pumps after the nighttime feedings) Quantity Pumped: about 3 oz total each time Supplementing EMB Supplement: Yes (POC give one 1 oz bottle daily) Formula Supplement: No Baby Elimination Number of Wet Diapers a Day: almost every feeding Number of BM a Day: almost every feeding Breast/Nipple Condition Breast Information: WNL Maternal Nipple Condition - Left: Short Maternal Nipple Condition - Right: Short Sore Nipples: No Onsite Pre-Feed weight: 3.522 kg Post-Feed weight: 3.566 kg Milk Transferred (mL): 44 Pre-Nursing Left Nipple: Within Normal Limits Pre-Nursing Right Nipple: Within Normal Limits Post-Nursing Left Nipple: Within Normal Limits Post-Nursing Right Nipple: Within Normal Limits Assessments/Interventions Assessments/Interventions: Met with mom and baby for consult.? Mom reports she's nursing baby for 15 - 20 minutes on each side every 2 - 3 hours.? A nipple shield was introduced in the hospital and she's trying to wean baby off stating for the past few days she's started with the shield, then taken it off after a few minutes.? Several times he's nursed without it, but won't do it consistently or for a complete feeding.? She reports seeing milk in the shield when he's done nursing and she uses the Haakaa on the side baby isn't nursing from.? States most of the time baby is content after nursing, but in the evenings she usually offers a 1 oz bottle of EBM as he's a little more unsettled at that time of the day.? She's pumping after her nighttime nursing sessions and gets about 3 oz total each time. Breasts WNL- symmetrical with rounded lower quadrants. Nipples are everted, a little short.? They don't flatten or invert with compression, no damage noted. Baby has gained 13 grams/day since his last visit on 11/30 and he's plotting along the 10th percentile on the growth chart.? Per mom during labor the left side of his head was bumping up against her pelvis and that's why she ended up having a C/S.? She reports the left side of his head was bruised and somewhat indented for the first few days.? She reports he favors turning his head to the left but moves his extremities equally.? His palate is WNL and his upper lip is easy to flange.? He extends his tongue to the gum line but not past it.? The tongue has good lateral movement but when he lifts it while crying the left side is lower than the right.? The lower frenulum may be a little anterior? Mom latched baby to the left side with the nipple shield and had the Haakaa on the right.? Baby appeared to have a wide latch and nutritive suckling, mom was comfortable.? After a few minutes the shield was removed and baby latched for a few minutes with nutritive suckling but then came off.? Mom worked with him a few minutes longer, getting him on a few more times but he wouldn't stay latched.? She finished the feeding with the nipple shield and milk was seen in the shield.? She then offered the left side also starting with the shieldbut removing it after a few minutes.? Baby was more frustrated on this side and had a harder time staying latched (even with compression) so she finished with the shield on this side as well.? When baby came off, milk was not seen in the shield.? After this 45 minutes feeding baby had transferred 44 ml; he was still hungry and mom was going to offer some EBM once she was home.? Mom had great technique and positioning both with nursing baby with and without the shield. The only piece of advice given re: latching him was to exaggerate pointing nipple to nose and bring baby in quickly when he opened wide. Plan: 1. Continue to nurse on her current schedule, offering both sides and practicing without the shield a few times/day.? We reviewed it can take a long time to wean babies from the shield and it's important to keep the feeding sessions pleasant for baby.? We discussed the importance of seeing milk from both sides after each nursing session. 2. Suggested b/c of his somewhat slow weight gain she offer EBM either after every daytime feeding while continuing to just nurse at night OR offer EBM after every other feeding around the clock.? Suggested she offer 1 - 2 oz each time. 3. Suggested she remove the Haakaa after it's collected an ounce rather than leaving it on for the entire feeding.? If she notices she's loosing a lot with leaking by doing that, ok to use it for the entire feeding.? Continue her current pumping schedule as she's probably pumping enough to offer an increased amount of EBM.? She feels comfortable with paced feeding. 4. Will f/u with the [facility] for a weight check on 12/13 and I will f/u by phone on 12/14.
--- OUTSIDE RECORDS SUMMARY | 2021-12-14 01:27 | XMS_ITS | Clinical Summary ---
:1990 Author Organization [facility] Address [address] [place] [address] Care Team Providers Name Role Phone Domonique Jones APRN, C.N.P., D.N.P. Primary Care Provider Source Comments Patient records contain information from all sites at [facility]. For routine questions regarding patient records, call [phone] during business hours, M-F 8:00 AM - 5:00 PM Central Time. Record requests for emergency care only can be directed to [phone] at any time.[facility] Allergies Active Allergy Reactions Severity Noted Date Comments Alum-Mag Hydroxide-Simeth Rash 04/20/2016 Aluminum-Magnesium Hydroxide Hives 05/01/2016 Amoxicillin Rash, GI intolerance 02/22/2017 rash na usea Azithromycin Rash 11/25/2010 Lidocaine Rash, Hives 04/20/2016 Medications Medication Sig Dispensed Refills Start Date End Date Status [id number] Take by mouth. 0 Active [id number] ORAL UNABLE TO FIND Patient uses 0 Ac tive shakeology calcium Take 1 tablet by 0 Act nanette carbonate-vitamin D3 mouth daily with (Calcium 500 + D) breakfast. 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 Immunizations Name Administration Dates Next Due 4vHPV (discontinued) 11/01/2007, 06/17/2007, 04/16/2007 DTP 12/19/1994, 1989, 1989, 1989 H1N1 All Forms 03/02/2009 HepA Pediatric/Adolescent 11/01/2007, 04/16/2007 HepB Pediatric/Adolescent 10/01/2002, 03/07/2002, 11/28/2001 HepB, Unspecified 10/01/2002, 03/07/2002, 11/28/2001 Hib (PRP-T) (ACTHIB, HIBERIX) 04/01/1990 Influenza (IM) Preservative Free 05/26/2013, 08/03/2009 Influenza, Seasonal, Injectable 04/01/1990, 03/08/1990 Influenza, Unspecified 03/24/2015, 02/14/2010, 04/01/1990, 03/08/1990 MCV4 (Menactra) 10/19/2006 MCV4, Unspecified 10/19/2006 MMR 11/28/2001, 12/24/1990 OPV 12/19/1994, 12/24/1990, 1989, 1989 Td Preservative Free (TENIVAC, 10/01/2002 DECAVAC) Tdap 05/26/2013 TyVi (inj) 11/30/2011, 08/03/2009 influenza vaccine quad 03/21/2021, 04/14/2020, 01/30/2019, (FLUZONE/FLUARIX) (6 months and 01/16/2018, 03/30/2015 older)(PF) Family History Medical History Relation Name Comments Asthma Brother Celiac disease Brother Alcohol abuse Father Eczema Father Lactose intolerance Father Dementia Maternal Grandmother Celiac disease Mother Crohn disease Mother Depression Mother Gestational diabetes Mother Alcohol abuse Mother's Brother Celiac disease Mother's Sister Arthritis Paternal Grandmother Dementia Paternal Grandmother Diabetes Paternal Grandmother Alcohol abuse Sister Asthma Sister Depression Sister Melanoma Sister Patend ductus arteriosis Sister Relation Name Status Comments Brother Father Maternal Grandmother Mother Mother's Brother Mother's Sister Paternal Grandmother Sister Social History Tobacco Use Types Packs/Day Years Used Date Smoking Tobacco: Former Cigarettes 0.3 1 05/0 05/2007 - 10/19/2009 Smokeless Tobacco: Never Alcohol Use Standard Drinks/Week Comments No 0 (1 standard drink = 0.6 oz pure alcoho l) Alcohol Habits Answer Date Recorded How often do you have a drink containing alcohol? Never 03/05/2021 How many drinks containing alcohol do you have on a Patient refused 01/30/2019 typical day when you are drinking? How often do you have six or more drinks on one Never 01/30/2019 occasion? Comment: Not asked Social Isolation Answer Date Recorded In a typical week, how many times do you talk on the phone T charles a week 03/05/2021 with family, friends, or neighbors? How often do you get together with friends or relatives? Onc e a week 03/05/2021 How often do you attend anabaptism or christian services? Never 03/05/2021 Do you belong to any clubs or organizations such as anabaptism N o 03/05/2021 groups, unions, fraternal or athletic groups, or school groups? How often do you attend meetings of the clubs or Never 03/05/2021 organizations you belong to? Are you now , , , , never Mar ried 03/05/2021 or living with a partner? Physical Activity Answer Date Recorded On average, how many days per week do you engage in moderate to 6 days 03/05/2021 strenuous exercise (like walking fast, running, jogging, dancing, swimming, biking, or other activities that cause a light or heavy sweat)? On average, how many minutes do you engage in exercise at th is 30 min 03/05/2021 level? Stress Answer Date Recorded Do you feel stress - tense, restless, nervous, or Only a lit tle 03/05/2021 anxious, or unable to sleep at night because your mind is troubled all the time - these days? Financial Resource Strain Answer Date Recorded How hard is it for you to pay for the very basics like Not v aaron hard 03/05/2021 food, housing, medical care, and heating? Intimate Partner Violence Answer Date Recorded Within the last year, have you been afraid of your partner o r No 03/05/2021 ex-partner? Within the last year, have you been humiliated or emotionall y No 03/05/2021 abused in other ways by your partner or ex-partner? Within the last year, have you been kicked, hit, slapped, or No 03/05/2021 otherwise physically hurt by your partner or ex-partner? Within the last year, have you been raped or forced to have any No 03/05/2021 kind of sexual activity by your partner or ex-partner? Food Insecurity Answer Date Recorded Within the past 12 months, you worried that your food would Never true 03/05/2021 run out before you got money to buy more. Within the past 12 months, the food you bought just didn't N ever true 03/05/2021 last and you didn't have money to get more. Transportation Needs Answer Date Recorded In the past 12 months, has lack of transportation kept you f rom No 03/05/2021 medical appointments or from getting medications? In the past 12 months, has lack of transportation kept you f rom No 03/05/2021 meetings, work, or getting things needed for daily living? Housing Stability Answer Date Recorded In the last 12 months, was there a time when you were not ab le No 03/05/2021 to pay the mortgage or rent on time? In the last 12 months, how many places have you lived? 1 03/05/2021 In the last 12 months, was there a time when you did not hav e a No 03/05/[address] or slept in a alf (including now)? Education Answer Date Recorded What is the highest level of school Master's degree (e.g., M A, MS, 01/30/2019 you have completed or the highest Rani, MEd, BONE CHAR KILN OPERATOR, MARLEN) degree you have received? Estimated Date of Delivery Comments Yes 10/30/2021 Based on last menstr ual period of 01/23/2021 Sex Assigned at Date Recorded Female 01/16/2018 3:45 PM CDT Last Filed Vital Signs Vital Sign Reading Time Taken Comments Blood Pressure 116/71 06/09/2021 2:25 PM ROUNDHOUSE SUPERVISOR Pulse 63 06/09/2021 2:25 PM ROUNDHOUSE SUPERVISOR Temperature 36.3 ??C (97.3 ??F) 06/09/2021 2:25 PM ROUNDHOUSE SUPERVISOR Respiratory Rate 20 06/09/2021 2:25 PM ROUNDHOUSE SUPERVISOR Oxygen Saturation 99% 06/09/2021 2:25 PM ROUNDHOUSE SUPERVISOR Inhaled Oxygen Concentration - - Weight 59.2 kg (130 lb 8.2 oz) 03/21/2021 4:15 PM ROUNDHOUSE SUPERVISOR Height 175 cm (5' 8.9) 01/30/2019 3:54 PM CDT Body Mass Index 19.33 01/30/2019 3:54 PM CDT Plan of Treatment Health Maintenance Due Date Last Done Comments COVID-19 Vaccine (#1) 1990 Depression Screening 05/07/2021 (Annual PHQ-2) Influenza Vaccine (#1) 2022 03/21/2021, 04/14/2020, 01/30/2019, Additional history exists Cervical Cancer Screening 04/19/2024 04/19/2021, 01/30/2019 , 01/30/2019, Additional history exists DTaP,Tdap,and Td Vaccines 08/23/2031 08/22/2021, 05/26/2013 , (7 - Td or Tdap) 10/01/2002, Additional history exists Hepatitis B Vaccines Completed 10/01/2002, 10/01/2002, 03/07/2002, Additional history exists Hepatitis C Screening Completed 08/06/2017 HIV Screening Completed 03/25/2021, 01/29/2018, 08/06/2017, Additional history exists Pneumococcal vaccine (0-64 Aged Out No lo nger eligible years) based on patient 's age to complete this topic Insurance Payer Benefit Plan Subscriber ID Effective Phone Address Typ e / Group Dates [facility] [id number] 2017-Pres [address] [place] [address] [facility] [id number] 2017-Prese [address] [place] [address] [facility] [id number] 2018-Pres [address] [place] [address] [facility] [id number] 2020-Pre [address] [place] [address] [facility] [id number] 2020-Prese [phone] [place] [id number] PPO BLUE SHIELD nt [address] [place] [address] Care Teams [employer] Barista Relationship Specialty Start Date End Date Domonique Jones APRN, C.N.P., D.N.P. PCP - General 10/19/16 [address] [place] [address]
--- OUTSIDE RECORDS SUMMARY | 2021-12-14 01:27 | XMS_ITS | Encounter Summary ---
:1990 Author Organization [facility] Address [address] [place] [address] Care Team Providers Name Role Phone Domonique Jones APRN, C.NKarsten, D.N.P. Primary Care Provider Reason for Visit Reason Comments Outpatient Infusion Episode Based Medications (Routine) - Closed Specialty Diagnoses / Procedures Referred By Contact Refer red To Contact Diagnoses COVID-19 Infection Denilson Solano [facility] Procedures SOTROVIMAB - EMERGENCY USE AUTHORIZATION [place] [address] [place] [phone] Referral ID Status Reason Start Date Expiration Date Visits Requ ested Visits Authorized [id number] Closed 06/09/2021 06/09/2022 1 1 Encounter Details Date Type Department Care Team Description 06/09/2021 Infusion Department of Infusion Denilson Solano COVID-19 Infection Therapy in [place] (Primary Dx) [place] [address] [facility] [address] [place], [place] [phone] Social History Tobacco Use Types Packs/Day Years [...] do you talk on the phone T wice a week 03/05/2021 with family, friends, or neighbors? How often do you get together with friends or relatives? Onc e a week 03/05/2021 How often do you attend muslim or taoist services? Never 03/05/2021 Do you belong to any clubs or organizations such as muslim N o 03/05/2021 groups, unions, fraternal or [...] place to sleep or slept in a longterm (including now)? Education Answer Date Recorded What is the highest level of school Master's degree (e.g., M Ezequiel, MS, 01/30/2019 you have completed or the highest Rani, MEd, RETAIL MERCHANDISER TECHNICIAN, MARLEN) degree you have received? Sex Assigned at Date Recorded Female 01/16/2018 3:45 PM CDT documented as of this encounter Last Filed Vital Signs Vital Sign Reading Time Taken Comments Blood Pressure 116/71 06/09/2021 2:25 PM TRAY LINE SUPERVISOR Pulse 63 06/09/2021 2:25 PM TRAY LINE SUPERVISOR Temperature 36.3 ??C (97.3 ??F) 06/09/2021 2:25 PM TRAY LINE SUPERVISOR Respiratory Rate 20 06/09/2021 2:25 PM TRAY LINE SUPERVISOR Oxygen Saturation 99% 06/09/2021 2:25 PM TRAY LINE SUPERVISOR Inhaled Oxygen Concentration - - Weight - - Height - - Body Mass Index - - documented in this encounter Plan of Treatment Not on filedocumented as of this encounter Visit Diagnoses Diagnosis COVID-19 Infection - Primary documented in this encounter Administered Medications Inactive Administered Medications - up to 3 most recent administrations Medication Order MAR Action Action Date Dose Rate Site NaCl 0.9% infusion New Bag 06/09/2021 2:51 PM 160 mL/hr 160 mL/hr 10-250 mL/hr, intravenous, As TRAY LINE SUPERVISOR needed, Between Consecutive Piggyback Administrations, Starting on Opal 06/09/21 at 1423, Infuse at the same rate as the piggyback until tubing clears or up to a volume of 20 mL. Select for IV medication administration when no maintenance IV available or when IV medications are not compatible with maintenance fluid. sodium chloride 0.9 % injection 3 mL Given 06/09/2021 3:09 PM TRAY LINE SUPERVISOR 3 mL 3 mL, intra-catheter, As needed, line care, Starting on Opal 06/09/21 at 1423, Prior to and following infusion and between multiple consecutive infusions. sotrovimab 500 mg IVPB in NaCl 0.9% 58 m L New Bag 06/09/2021 2:32 500 mg intravenous, Administer over 30 Minutes, Once, On PM TRAY LINE SUPERVISOR Opal 06/09/21 at 1430, For 1 dose, Patient/caregiver factsheet: https://www.fda.gov/media/375084/download *Refrigerate* Do not shake. Prior to the infusion, gently rock the infusion bag back and forth by hand 3 to 5 times. Do not invert the infusion bag. Avoid forming air bubbles. Nursing to attach and prime infusion set with in-line or add-on 0.2 micron polyethersulfone (PES) filter. Flush with NaCl 0.9% after infusion., Authorizing Prescriber Service: [employer], Criteria: Adults and pediatric patients (age 12-17 years and weighing at least 40 kg), Indication of use: Outpatient or observation patient: Mild to moderate COVID-19 treatment, AND meeting at least one of the following: documented in this encounter Additional Health Concerns Infection Onset Date Last Indicated Resolved Time COVID19 06/07/2021 06/09/2021 06/29/2021 5:40 AM TRAY LINE SUPERVISOR Assessment Noted Time PHQ-9 Depression Total Score: 5 03/09/2021 4:24 PM CDT documented as of this encounter Care Teams Outside Laborer Relationship Specialty Start Date End Date Domonique Jones APRN, C.N.P., D.N.P. PCP - General 10/19/[address] [place] [phone] documented as of this encounter
--- OUTSIDE RECORDS SUMMARY | 2021-12-14 01:28 | XMS_ITS | Encounter Summary ---
:1990 Author Organization [facility] Address [address] [place] [address] Care Team Providers Name Role Phone Domonique Jones APRN, C.N.P., D.N.P. Primary Care Provider Reason for Visit Reason Comments Cough COVID Nurse [facility] Encounter Details Date Type Department Care Team Description 03/23/2021 Nurse Triage Department of [facility] Rein, Catracho Ferrera; COV[facility]E [facility], [facility] [phone] [place] ([facility]) [address] [place] [address] Social History Tobacco Use Types Packs/Day Years [...] week 03/05/2021 How often do you attend quaker or buddhism services? Never 03/05/2021 Do you belong to any clubs or organizations such as quaker N o 03/05/2021 groups, unions, fraternal or [...] place to sleep or slept in a senior care (including now)? Education Answer Date Recorded What is the highest level of school Master's degree (e.g., M A, MS, 01/30/2019 you have completed or the highest Rani, MEd, PATIENT RELATIONS SPECIALIST, MARLEN) degree you have received? Sex Assigned at Date Recorded Female 01/16/2018 3:45 PM CDT documented as of this encounter Miscellaneous Notes Telephone Encounter - Cassi Patton RJaguar - 03/23/2021 12:42 PM CST Chief Complaint / Reason for Call Patient is a 31 y.o. female calling regarding Cough and COVID Nurse Line. Assessment Concern: Patient calls due to sinus congestion and cough. Patient reports cough has worsen. She reports body aches with this. She reports on and off feeling warm but unable to check temperture. She denies difficulty breathing. Patient reports is waking up at night. Patient is about 9 weeks and seen in family. Patient reports tested for COVID-19 03/11 which was negative. Patient saw family provider on 03/21 for initial OB check. She reports cough has worsen the last couple days with wheezingat times. Present for: 2 weeks Home cares tried: Tylenol, Robitussin Dm, cough Calling to request: An appointment The recommended disposition is See a health care provider within 4 hours. Patient was warm transferred to Mckenzie at the clinic for further assistance. Reason for Disposition ? ? [1] MILD difficulty breathing (e.g., minimal/no SOB at rest, SOB with walking, pulse <100) AND [2] still present when not coughing ??? Wheezing is present Protocols used: COUGH - ACUTE [id number] Care Advice Patient/Caregiver understands and will follow care advice?: Yes, able to teach back AVOID TOBACCO SMOKE: * Avoid tobacco smoke. * Smoking or being exposed to smoke makes coughs much worse. CALL BACK IF: * You become worse. OTC COUGH SYRUP - DEXTROMETHORPHAN: * Cough syrups containing the cough suppressant dextromethorphan (DM) may help decrease your cough. Cough syrups work best for coughs that keep you awake at night. They can also sometimes help in the late stages of a respiratory infection when the cough is dry and hacking. They can be used along with cough drops. * Examples: Benylin, Robitussin DM, Vicks 44 Cough Relief * Read the package instructions for dosage, contraindications, and other important information. COVID-19 Nurse Line Screening ASSESSMENT Initial Screening Pathway Select appropriate pathway: : Adult In the last 48 hours, have you had a fever* OR symptoms that are unrelated to a preexisting illness?: New cough,New chills,New headache,Fever COVID Symptomatic Screening Do you have any of the following urgent symptoms?: No urgent symptoms noted (Continue Screening) Have you received a COVID-19 vaccine in the last 72 hours? : No vaccine received (Continue Screening) Have you had close contact* with a person who has a LABORATORY CONFIRMED case of COVID-19 in the past 14 days?: No (Continue Screening) Have you tested positive for COVID-19 in the last 45 days?: No. COVID-19 testing is indicated (Continue Screening for Additional Testing) Additional Screening for Influenza, RSV and Strep Select appropriate region: : [place] Do you have any of the following respiratory syntonical virus (RSV) complications? : No complications noted (Continue Screening) Do you have any of the following high risk influenza criteria?: No criteria noted (Continue Screening) Are all of the following Strep criteria met? : Age is between 18-75 years,No, all criteria are not met. Influenza tesing is indicated. (End Screening) Symptom Onset Date of symptom onset: 03/21/21 Testing Recommendation Endpoint Is testing recommended? : Recommended to test Further Triage Needs Any further triage needs? : No further concerns noted. PLAN Endpoint recommendation: Testing indicated, patient declining testing. Symptomatic Carepoints: Stay home and separate yourself from others and stay in a specific sick room if able. Avoid sharing personal or household items. Rest. Hydrate. Take Acetaminophen/Ibuprofen asneeded to control fever and muscles aches. Use over the counter medications as needed for other symptoms. Education: Patient/caregiver able to teach back Patient agreeable to plan of care: Yes The following references were used: [facility] novel coronavirus (COVID- 19) resources Nursing judgement ERPUNCHER documented in this encounter Plan of Treatment Not on filedocumented as of this encounter Visit Diagnoses Not on filedocumented in this encounter Additional Health Concerns Assessment Noted Time PHQ-9 Depression Total Score: 5 03/09/2021 4:24 PM CDT documented as of this encounter Care Teams Range Mounter Relationship Specialty Start Date End Date Domonique Jones APRN, C.N.P., D.N.P. PCP - General 10/19/[address] [address] documented as of this encounter
--- OUTSIDE RECORDS SUMMARY | 2021-12-14 01:28 | XMS_ITS | Encounter Summary ---
:1990 Author Organization [facility] Address [address] [place] [address] Care Team Providers Name Role Phone Domonique Jones APRN, C.N.P., D.N.P. Primary Care Provider Reason for Referral Outpatient (Routine) - Authorized Specialty Diagnoses / Procedures Referred By Contact Refer red To Contact Family Medicine Diagnoses Encounter For Supervision Of Other Normal Unspecified Trimester (HCC) [facility] [address] [place] [address] Referral ID Status Reason Start Date Expiration Date Visits V isits Requested Authorized [id number] Authorized 03/21/2021 03/21/2022 16 16 Scheduling Instructions OB visits every 4 weeks x 5 visits, ever y 2wks x 4, then every 1 wk x 4 ANICAL ENGINEERING INTERN Reason for Visit Reason Comments Routine Visit no concerns Outpatient (Routine) - Closed Specialty Diagnoses / Procedures Referred By Contact Refer red To Contact Family Medicine Diagnoses Examination Test With Positive Result (HCC) Juan Donnelly [facility] [place] [address] [place] [address] Referral ID Status Reason Start Date Expiration Date Visits Requ ested Visits Authorized [id number] Closed 02/23/2021 02/23/2022 1 1 Encounter Details Date Type Department Care Team Description 03/21/2021 Routine Department of Juan Donnelly For Supervision Of Other Normal Unspecified Trimester (Primary Dx); Family MedicineMera M.D. Examination Test With Positive Result [facility], [facility] [address] [facility] [place] [facility] [phone] [facility] [place] [phone] (Work) [phone] Social History Tobacco Use Types Packs/Day Years Used Date Smoking Tobacco: Former Cigarettes 0.3 1 05/05/2007 - 10/19/2009 Smokeless Tobacco: Never Alcohol Use [...] week 03/05/2021 How often do you attend orthodox or hindu services? Never 03/05/2021 Do you belong to any clubs or organizations such as orthodox N o 03/05/2021 groups, unions, fraternal or [...] minutes do you engage in exercise at is 30 min 03/05/2021 level? Stress Answer [...] place to sleep or slept in a group home (including now)? Education Answer Date Recorded What is the highest level of school Master's degree (e.g., Candice Nieves MS, 01/30/2019 you have completed or the highest Rani, MEd, CYLINDER PRESS OPERATOR APPRENTICE, MARLEN) degree you have received? Sex Assigned at Date Recorded Female 01/16/2018 3:45 PM CDT documented as of this encounter Last Filed Vital Signs Vital Sign Reading Time Taken Comments Blood Pressure 135/73 03/21/2021 4:15 PM MECHANICAL ENGINEERING INTERN Pulse 84 03/21/2021 4:15 PM MECHANICAL ENGINEERING INTERN Temperature - - Respiratory Rate - - Oxygen Saturation - - Inhaled Oxygen Concentration - - Weight 59.2 kg (130 lb 8.2 oz) 03/21/2021 4:15 PM MECHANICAL ENGINEERING INTERN Height - - Body Mass Index 19.33 01/30/2019 3:54 PM CDT documented in this encounter H&P Notes Juan Donnelly M.D. - 03/21/2021 4:00 PM CST SUBJECTIVE CHIEF COMPLAINT/REASON FOR VISIT Initial OB check. HISTORY OF PRESENT ILLNESS Claudia Maradiaga is a 31 y.o. female at 8w1d weeks estimated gestational age presenting for initial OB check. No cramping, bleeding, or leaking. No pain or swelling. No headaches, visual changes, or right upper quadrant pain. She does note nausea during weeks 6 and 7, but is feeling better. She mentions constipation as well. Claudia mentions cough, headache and congestion. Cough is worseat night. She was tested for COVID and it was negative [03/11/2021]. She was positive for COVID at the end of December [12/21/2020]. No fever. Mood betancourt, she was on Zoloft in the past for anxiety and depression. She stopped in October. Her symptoms were related to work stressors. There are no further concerns at this time. Answers for HPI/ROS submitted by the patient on 03/04/2021 Loss of appetite: Yes No eye issues: Yes No ENT issues: Yes No heart issues: Yes No respiratory issues: Yes No GI issues: Yes No muscle/bone issues: Yes No skin issues: Yes No neurologic issues: Yes No mental health issues: Yes No blood/lymph issues: Yes Frequent urination: Yes OBJECTIVE VITAL SIGNS BP 135/73 Pulse 84 Wt 59.2 kg LMP 01/23/2021 BMI 19.33 kg/m?? PHYSICAL EXAMINATION General: Well appearing and in no acute distress. Mental: Patient is alert and oriented x3. Does not appear depressed or anxious. Mood is good with appropriate affect. Speech and thought content and pattern are within normal limits. Neuro: No focal findings. Skin: Normal color. Moist mucous membranes. No worrisome rashes on exposed skin. Extremities: No clubbing, cyanosis, or edema. ASSESSMENT / PLAN #1 31 y.o., female at 8w1d weeks??? estimated gestational age, Estimated Date of Delivery: 10/30/21 by LMP of 01/23/2021, labs are scheduled for Sunday with results pending PLAN: Ultrasound was done today with results pending. I will notify the patient of the results when they become available. Initial OB education was given. I welcomed her into my OB practice. I discussed visit frequency as well as routine testing. We discussed that I tend to attend the majority of my deliveries but there is cross-coverage if I am unavailable. This would be a family medicine OB provider Sunday through Sunday or an OBGYN provider over the weekend. All questions were answered. Concerns were addressed and patient is in agreement with the current plan as mentioned above. Increase VitaminD to 2000 to 5000 International Units daily. This is safe to take in . Pap smear is up to date, due 01/30/2022. Influenza vaccine was administered today. Immunizations Given This Visit Procedures ??? influenza vaccine quad (FLUZONE/FLUARIX) (6 months and older) (PF) For constipation, increase daily fluid intake [80 to 100 ounces daily], recommend dried fruits and nuts, and over the counter MiraLAX [once daily]. For cough and congestion: Robitussin, cough drops and Tylenol are safe in . Do not take ibuprofen. With essential oils, she can use them for aroma therapy and in a bath. They can irritate the skin, monitor that. Discussed the signs and symptoms of a DVT: warmth, redness and swelling in one calf. It is fairly sudden and usually follows a long car ride or airplane travel. puts a patient at an increasedrisk for blood clots. Do not recommend traveling after 36 weeks. In terms of support personnel, discussed that she can have one person. This person cannot change during the hospital stay [at this time, may change with COVID]. I will check about having a pediatric clinical nurse specialist as well as her . If they do allow a pediatric clinical nurse specialist, they would have to be certified by [facility]. patient, COVID vaccine eligible. We discussed that she is eligible to receive the COVID vaccine and that this is recommended for our patients. We discussed the various studies showing safety and efficacy, and the newest studies showing that babies develop antibodies to COVID when mother gets the vaccine during . #2 Follow up PLAN: She will follow up in 4 weeks for next OB visit. She will contact us with any questions or concerns. - Family Medicine office visit (clinic); Standing TIME COMPONENT: 45 minutes spent in a combination of the following activities: visit with the patient; reviewing records; interpreting test results; discussing plans with the patient and/or family; discussing and coordinating care with other team members. This document serves as a record of services personally performed by Dr. Juan Donnelly. It was created on their behalf by Ijeoma Tamayo, a trained medical economics consultant. The creation of this record is based on the scribe remotely listening to the visit and the provider's statements to them. This documenthas been checked and approved by the attending provider. ANICAL ENGINEERING INTERN documented in this encounter Plan of Treatment Scheduled Referrals Name Type Priority Associated Diagnoses Order [facility] Family Medicine Outpatient Referral Routine Encounter For q4w for 16 office visit Supervision Of Other Occurre nces starting (clinic) Normal 03/21/2021 until Unspecified 03/21/2024 Trimester documented as of this encounter Visit Diagnoses Diagnosis Encounter For Supervision Of Other Irma l Unspecified Trimester (HCC) - Primary Examination Test With Positive Result (HCC) documented in this encounter Additional Health Concerns Assessment Noted Time PHQ-9 Depression Total Score: 5 03/09/2021 4:24 PM CDT documented as of this encounter Care Teams Manager Export Relationship Specialty Start Date End Date Domonique Jones APRN, C.N.P., D.N.P. PCP - General 10/19/16 [address] [place] [address] documented as of this encounter
--- OUTSIDE RECORDS SUMMARY | 2021-12-14 01:28 | XMS_ITS | Encounter Summary ---
:1990 Author Organization [facility] Address [address] [place] [address] Care Team Providers Name Role Phone Domonique Jones APRN, C.N.P., D.N.P. Primary Care Provider Reason for Visit Appointment Request (Routine) - Closed Specialty Diagnoses / Procedures Referred By Contact Refer red To Contact General Internal Medicine Referral ID Status Reason Start Date Expiration Date Visits Requ ested Visits Authorized [id number] Closed 06/09/2021 06/09/2022 1 1 Encounter Details Date Type Department Care Team Description 06/09/2021 Internal E-Consult Division of General Pati Stewart, COCOID-19 Infection (Primary Dx); Internal Medicine in SER[place], C.N.P., Pregna ncy Abdominal With Intrauterine (HCC) [place], [place] M.S. [address] [facility] [address] [place] [phone] Social History Tobacco Use Types Packs/Day Years [...] do you talk on the phone T gyalace a week 03/05/2021 with family, friends, or neighbors? How often do you get together with friends or relatives? Onc e a week 03/05/2021 How often do you attend anabaptist or episcopal services? Never 03/05/2021 Do you belong to any clubs or organizations such as anabaptist N o 03/05/2021 groups, unions, fraternal or [...] place to sleep or slept in a long term (including now)? Education Answer Date Recorded What is the highest level of school Master's degree (e.g., M A, MS, 01/30/2019 you have completed or the highest Rani, MEd, DATA SUPPORT SPECIALIST, MARLEN) degree you have received? Sex Assigned at Date Recorded Female 01/16/2018 3:45 PM CDT documented as of this encounter Consult Notes Pati Stewart APRN, C.N.P., M.S. - 06/09/2021 10:30 AM CST Images from the original note were not included. E-consult for Request for Outpatient Treatment for acute Covid-19 Ms. Maradiaga tested positive for COVID-19. The Covid-19 Infection flag in the Rickie Chart has been updated. There is a critical shortage of the outpatient medications used to treat the current strain of COVID-19. Due to this and the extremely high volume of persons testing positive for COVID-19, [facility],in collaboration with the [place] [facility], is currently able to offer treatment to the highest risk patients, including those who are , severely immune compromised, and those with multiple risk factors for being hospitalized for COVID-19 (MASS 4 or greater). Ms. Maradiaga is on the list of patients being reviewed for outpatient treatments. MASS = 2, I have routed the chart to the infusion therapy center with the request the patient be prioritized for Sotrovimab or Remdesivir. This does not guarantee the patient will receive either therapy. If the infusion therapy center is able to offer the patient therapy, they will contact the patient directly. Pati Stewart APRN, C.N.P., M.S. [place] COVID Care Team [facility] and [facility] Monoclonal Antibody Screening Score Guide Age >=65 = 2 BMI >= 35 = 1 Cardiovascular disease AND age > =55 = 2 Chronic kidney disease stave IV or more severe (eGFR <30) = 3 Chronic Respiratory Disease and age >= 55 = 2 Diabetes Mellitus = 2 Hypertension and age >= 55 = 1 Immune Compromised = 4 = 2 Monoclonal Antibody Screening Score (MASS) Total Points Current as of 2 days ago (Sunday) 2 0 - 3 Points: Low Risk 4 - 6 Points: Medium Risk >= 7 Points: High Risk Last Change: Details This score is used to evaluate patient risk of complications with COVID-19 infection Points Metrics 0 Age: 31 Current as of 2 days ago (Sunday) 0 Has Chronic Respiratory Disease: No Current as of 2 days ago (Sunday) 0 Has Diabetes: No Current as of 2 days ago (Sunday) 0 Patient is Immune Compromised/Transplant Patient: No Current as of 2 days ago (Sunday) 0 BMI: 19.33 Current as of 2 days ago (Sunday) 0 Has CVD: No Current as of 2 days ago (Sunday) 0 Has Renal Disease (CKD 4 or 5, ESRD w/ Dialysis): No Current as of 2 days ago (Sunday) 0 Has Hypertension: No Current as of 2 days ago (Sunday) 2 : Yes Current as of 2 days ago (Sunday) R DIRECTOR documented in this encounter Plan of Treatment Not on filedocumented as of this encounter Visit Diagnoses Diagnosis COVID-19 Infection - Primary Abdominal With Intrauterine Pr egnancy (HCC) documented in this encounter Additional Health Concerns Assessment Noted Time PHQ-9 Depression Total Score: 5 03/09/2021 4:24 PM CDT documented as of this encounter Care Teams Thoracic Medicine Physician Relationship Specialty Start Date End Date Domonique Jones APRN, C.N.P., D.N.P. PCP - General 10/19/16 [address] [place] [phone] documented as of this encounter
--- OUTSIDE RECORDS SUMMARY | 2021-12-14 01:28 | XMS_ITS | Encounter Summary ---
:1990 Author Organization [facility] Address [address] [place] [address] Care Team Providers Name Role Phone Domonique Jones APRN, C.N.P., D.N.P. Primary Care Provider Encounter Details Date Type Department Care Team Description 03/24/2021 Admin Visit Department of Family Medicine, [address] [place] [address] [facility] [phone] Social History Tobacco Use Types Packs/Day Years Used Date Smoking Tobacco: Former Cigarettes 0.3 1 05/2007 - 10/19/2009 Smokeless Tobacco: Never Alcohol [...] week 03/05/2021 How often do you attend temple or spiritism services? Never 03/05/2021 Do you belong to any clubs or organizations such as temple N o 03/05/2021 groups, unions, fraternal or [...] completed or the highest Rani, MEd, RETAIL OPERATIONS MANAGER, MARLEN) degree you have received? Sex Assigned at Date Recorded Female 01/16/2018 3:45 PM CDT documented as of this encounter Plan of Treatment Not on filedocumented as of this encounter Visit Diagnoses Not on filedocumented in this encounter Additional Health Concerns Infection Onset Date Last Indicated Resolved Time COVID19 Pending 03/24/2021 03/24/2021 03/24/2021 9:12 PM TRIP MOTOR OPERATOR Assessment Noted Time PHQ-9 Depression Total Score: 5 03/09/2021 4:24 PM CDT documented as of this encounter Care Teams Outside Sales Professional Relationship Specialty Start Date End Date Domonique Jones APRN, C.N.P., D.N.P. PCP - General 10/19/16 [address] [place] [phone] documented as of this encounter
--- OUTSIDE RECORDS SUMMARY | 2021-12-14 01:28 | XMS_ITS | Encounter Summary ---
:1990 Author Organization [facility] Address [address] [place] [address] Care Team Providers Name Role Phone Domonique Jones APRN, C.N.PSymone, D.N.P. Primary Care Provider Reason for Visit Reason Comments Cough worse lately, lots of conges tion Congestion Other recently tested for covid, n eg. sx began about 2 weeks ago, Chills Shortness of Breath Sinus Symptoms Headache Sore Throat Fatigue Appointment Request (Routine) - Closed Specialty Diagnoses / Procedures Referred By Contact Refer red To Contact Family Medicine Referral ID Status Reason Start Date Expiration Date Visits Requ ested Visits Authorized [id number] Closed 03/23/2021 03/23/2022 1 1 Encounter Details Date Type Department Care Team Description 03/23/2021 Office Visit Department of [facility] Arnaud Starr [facility] critical access hospital Upper Medicine, Derick Carbajal-Catrina, P .A. Respiratory (Primary Clinic, in [place], [address]) [facility] [place] [address] [address] [place], [place] [phone] [id number] (Work) [phone] Social History Tobacco Use Types Packs/Day Years [...] week 03/05/2021 How often do you attend islam or moravian services? Never 03/05/2021 Do you belong to any clubs or organizations such as islam N o 03/05/2021 groups, unions, fraternal or [...] place to sleep or slept in a custodial (including now)? Education Answer Date Recorded What is the highest level of school Master's degree (e.g., M Ezequiel, MS, 01/30/2019 you have completed or the highest Rani, MEd, ASSISTANT SOFTBALL [employer]ACH, MARLEN) degree you have received? Sex Assigned at Date Recorded Female 01/16/2018 3:45 PM CDT documented as of this encounter Last Filed Vital Signs Vital Sign Reading Time Taken Comments Blood Pressure 127/73 03/23/2021 6:11 PM [facility] Pulse 77 03/23/2021 6:11 PM [facility] Temperature 37 ??C (98.6 ??F) 03/23/2021 6:11 PM [facility] Respiratory Rate - - Oxygen Saturation 98% 03/23/2021 6:11 PM [facility] Inhaled Oxygen Concentration - - Weight - - Height - - Body Mass Index - - documented in this encounter Patient Instructions Patient InstructionsArnaud Starr P.A.-Nick., P.A. - 03/23/2021 6:30 PM [facility] The common cold is a viral infection of the nose and throat. This is also called an upper respiratory tract infection (URI). Many adults have 2 or 3 URIs each year. A cold is usually harmless, althoughit might not feel that way. Common symptoms include: ??? Low grade fever, a temperature of 100.4 degrees Fahrenheit (38 degrees Celsius) or slightly higher ??? Cough ??? Sore throat ??? Head congestion or face pain ??? Red or mattering eyes ??? Stuffy nose or runny nose. At first the drainage from the nose may be clear. Later it may becomethicker and yellow or green. Yellow or green mucus does not mean it is a bacterial infection. ??? Ear pain or pressure ??? Feeling tired Symptoms of a cold or URI can last 14 to 21 days. A dry, hacking cough can last up to 4 weeks. Antibiotics do NOT work in treating viral infections. Antibiotics only help to treat bacterial infections. Taking antibiotics when you do not need them isstrongly discouraged. They can lead to serious and harmful side effects such as allergic reactions, rashes, C. difficile infections, diarrhea, and yeast infections. There is no cure for the common cold, but there are things you can do to help you feel better. You should: ??? Drink plenty of fluids. Water, juice, clear broth, or warm lemon water with honey helps loosen congestion and it prevents dehydration. Avoid caffeinated drinks. They can make dehydration worse. ??? Sleep. Adequate sleep is necessary to support your immune system so that you can recover. ??? Get good nutrition. Eat well while you recover. ??? Wash your hands often. ??? Add moisture to the air. Use a humidifier or take a steamy bath. This may help loosen congestion. ??? Avoid smoking or exposure to second hand smoke. Try over the counter cold and cough medications. Follow instructions and stop taking them when no longer needed. Fever, headache, pain or sore throat [x] Acetaminophen (Tylenol??) 500-1000 mg every 4 hours as needed Maximum dose: 3000 mg of acetaminophen in 24 hours. [] Ibuprofen (Advil??, Motrin??) 400 mg every 4 hours as needed Avoid if you have kidney disease, coronary heart disease, heart failure or history of gastric ulcer or gastric surgery. Maximum dose: 2400 mg of ibuprofen in 24 hours. Additional options for sore throat [x] Lozenges or throat spray with benzocaine as needed. [x] Gargle with salt water several times per day. Mix ?? teaspoon of table salt in 8 ounces of warmwater. Sinus drainage, sinus/nose/ear congestion [x] Saline nasal spray or saline rinse (Simply Saline???, [place] Nasal [place], Neilmed??) as needed [x] Steroid nasal spray (Flonase??, Nasacort??, fluticasone) as directed on package instructions [] Pseudoephedrine capsules (Sudafed??) as directed on package instructions Avoid if you have high blood pressure, heart disease or take beta-blockers (atenolol, metoprolol, etc.). Do not exceed 240 mg per day. [] Oxymetazoline nasal spray (Afrin??, Sinex???) as directed on package instructions. Do not use longer than 5 days. Cough [x] Honey 1-2 teaspoons every 4 to 6 hours as needed [x] Cough drops every 4 to 6 hours as needed [x] Guaifenesin/dextromethorphan syrup (Robitussin?? DM) as directed on package instructions. ??? Do not take if you take an antidepressant, opioid pain medication, sleeping medication, or antipsychotic medication. [] Benzonatate 100 mg (Tessalon?? Perles) prescription only ??? Do not exceed 6 capsules in 24 hours. Take with a full glass of water. [] Albuterol inhaler (prescription only) puffs every hours as needed for wheezing or shortness of breath. ??? Only recommended for patients with wheezing or history of asthma. Use with spacer. Many naxp-grm-naqbnvl cold medications contain more than one ingredient. For example, a decongestantalso may have a pain reliever in it. Read the labels of cold medications to make sure you are not taking too much of any medication. When to contact your health care provider Contact your provider right away if you have any of the following: ??? Symptoms that improved then suddenly got worse. This could be a sign of a bacterial infection. ??? Shortness of breath, wheezing or difficulty breathing. ??? Fever of 100.4 degrees Fahrenheit (38 degrees Celsius) or higher that lasts more than 5 days or fever that returns after not having a fever for 24 to 48 hours. ??? Severe headache not relieved by chgi-wnx-dbkugdz pain relievers. ??? Dry mouth and urinating less than every 8 hours. ??? Severe or new symptoms that worry you. Disclaimer: Recommendations above are intended for use in adults and teens. For dosing recommendations for children, please contact your provider. CHIPPER documented in this encounter Progress Notes Arnaud Starr P.A.-C., P.A. - 03/23/2021 6:30 PM CST SUBJECTIVE CHIEF COMPLAINT / REASON FOR VISIT Claudia Maradiaga is a 31 y.o. female who presents for evaluation of Cough (worse lately, lots ofcongestion), Congestion, Other (recently tested for covid, neg. sx began about 2 weeks ago, ), Chills, Shortness of Breath, Sinus Symptoms, Headache, Sore Throat, and Fatigue. HISTORY OF PRESENT ILLNESS Patient is a pleasant but mildly ill-appearing 31-year-old female who is 9 weeks presentingclinic to the discuss multiple symptoms overall generally not feeling well. Patient states that for last 2 weeks symptoms have been present. She was better last Sunday and Sunday but symptoms flared up again much worse on Sunday with cough becoming more prominent and new loss of voice. Overall symptoms include primary concern of nasal congestion and chest congestion with body aches and joint pains. The cough is causing some of the chest pain. Other symptoms include chills as well as occasional dyspnea with exertion, rhinorrhea, postnasal drainage. Symptoms also include fluctuating head ache more so in the mornings and pounding in the front region. Does have a sore throat this is worsein the morning. Also notes fatigue. Denies any fever. No earache. No chest pain. No abdominal pain, nausea vomiting diarrhea. 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 No exposure to COVID. Does have COVID and December with exactly similar symptoms but not to the same extent. Those symptoms lasted 16 days but did completely resolve. Again the symptoms not as bad this time but very similar. Has not had COVID vaccination. Again did have COVID test 3 days after symptoms the can and did return negative. Treatment home with Tylenol as well as Robitussin cough drops. The following portions of the patient's history were reviewed and updated as appropriate: allergies,current medications, family history, medical history, social history, surgical history and problem list. REVIEW OF SYSTEMS All other systems reviewed and are negative. OBJECTIVE PHYSICAL EXAM Vitals and nursing note reviewed. Constitutional General: She is not in acute distress. Appearance: Normal appearance. She is not ill-appearing. HENT Head: Normocephalic and atraumatic. Right Ear: Tympanic membrane, ear canal and external ear normal. Left Ear: Tympanic membrane, ear canal and external ear normal. Nose: Congestion and rhinorrhea present. Comments: No sinus tenderness on percussion. Mouth/Throat: Mouth: Mucous membranes are moist. Pharynx: Oropharynx is clear. Posterior oropharyngeal erythema (Posterior pharynx with cobblestoning and clear to yellow postnasal drainage.) present. Eyes General: No scleral icterus. Conjunctiva/sclera: Conjunctivae normal. Cardiovascular Rate and Rhythm: Normal rate and regular rhythm. Heart sounds: Normal heart sounds. No murmur heard. No friction rub. No gallop. Pulmonary Effort: Pulmonary effort is normal. Breath sounds: Normal breath sounds. No wheezing, rhonchi or rales. Musculoskeletal Cervical back: Normal range of motion and neck supple. Lymphadenopathy Cervical: No cervical adenopathy. Skin General: Skin is warm and dry. Neurological Mental Status: She is alert. ASSESSMENT / PLAN #1 Infection Upper Respiratory Discussed patient etiology upper respiratory infections viral versus bacterial causes. Given the overall clinical picture would not be impractical to empirically treat with antibiotic for sinus infection however exam is really not significant for true bacterial sinus infection patient's allergy list as well as being 9 weeks will defer any antibiotics. Patient is aware that viral illnesses can linger and cough can last quite sometime. Discussed symptomatic care and discussed caution with some of the ijyd-kvl-dukcnuf medications with patient is 9 weeks . Provided handout regarding sym ptomatic care including but limited to Tylenol, nasal rinses and sprays, elevating head of the night, chest rubs, honey, wdum-zid-jgrarpg cough medications. Consider perforation for repeat COVID test however the patient did have negative Covid test 3 days after symptoms began so less likely but practic al. She will isolate till COVID test results are known again. If positive will be managed accordingly. Practice good hand hygiene, contact precaution, social this, mask wearing, respiratory etiquette. If negative the symptoms still or likely some other virus would still recommend symptomatic care as above. If not improving next 3 days follow-up. Any sudden or significant changes go to the emergency department. Questions answered. She voiced understanding agrees this plan. Arnaud Starr PA-C CHIPPER documented in this encounter Plan of Treatment Not on filedocumented as of this encounter Visit Diagnoses Diagnosis Infection Upper Respiratory - Primary documented in this encounter Additional Health Concerns Assessment Noted Time PHQ-9 Depression Total Score: 5 03/09/2021 4:24 PM CDT documented as of this encounter Care Teams Lead Mechanical Engineer Relationship Specialty Start Date End Date Domonique Jones APRN, C.N.P., D.N.P. PCP - General 10/19/16 [address] [place] [address] documented as of this encounter
--- OUTSIDE RECORDS SUMMARY | 2021-12-14 01:28 | XMS_ITS | Encounter Summary ---
:1990 Author Organization [facility] Address [address] [place] [address] Care Team Providers Name Role Phone Domonique Jones APRN, C.N.P., D.N.P. Primary Care Provider Reason for Visit Reason Comments Patient Education Encounter Details Date Type Department Care Team Description 06/09/2021 Clinical Communication Department of Maria In[facility] in [place], [place] M.S.N., R.N. [address] [place] [id number] Social History Tobacco Use Types Packs/Day Years [...] week 03/05/2021 How often do you attend christian or zoroastrianism services? Never 03/05/2021 Do you belong to any clubs or organizations such as christian N o 03/05/2021 groups, unions, fraternal or [...] place to sleep or slept in a chcf (including now)? Education Answer Date Recorded What is the highest level of school Master's degree (e.g., M A, MS, 01/30/2019 you have completed or the highest Rani, MEd, [employer]INKLER SERVICE TECHNICIAN, MARLEN) degree you have received? Sex Assigned at Date Recorded Female 01/16/2018 3:45 PM CDT documented as of this encounter Miscellaneous Notes Telephone Encounter - Yen Robert M.S.N., R.N. - 06/09/2021 12:10 PM CUSTOMER CONSULTING MANAGER Images from the original note were not included. SUBJECTIVE CHIEF COMPLAINT / REASON FOR CALL Patient Education Information Discussed Hi, my name is Oh García, R.N. from [facility] with a recommendation that you receive a monoclonal antibody infusion. To ensure that I offer your the therapies available to you, can you please let me know what state you are residing in right now? [place]. The medication is sotrovimab and it is for the treatment of coronavirus disease 2019 (COVID-19). This medication has been recommended for you after review of your medical records by a multidisciplinaryphysician team. While most people do feel better in seven days, some people do develop serious respiratory complications which could lead to hospitalizations or even . In the next few minutes, I am going to give you more information about this medication to help you understand the possible risks and benefits of taking a monoclonal antibody infusion. It is your choice to receive a monoclonal antibody infusion or stop at any time. ??? Receiving a monoclonal antibody infusion may benefit certain people with COVID-19. ??? This may decrease your risk for hospitalization by 10% to 3% ??? This may decrease the duration of your symptoms by 2 days (from 8 days to 6 days) ??? You may be feeling well now or not that bad, however, you have been identified as someone who isat risk of developing worse symptoms, and this infusion is designed to prevent that and help you to continue feeling well. What is a monoclonal antibody infusion? These are investigational medicines used for the treatment of COVID-19. It can be used in peoplewho are: o Not in the hospital o Who do not have a new or increased oxygen requirement due to COVID-19 o Who have not previously tested positive for COVID-19 within the last 90 days o Age 12 and older o Have mild or moderate symptoms o Weigh equal or more than 88 pounds o AND who are at high risk for developing severe COVID-19 symptoms or being hospitalized. ??? Monoclonal antibodies are laboratory made proteins that mimic the immune system's ability to fight off harmful pathogens such as viruses. This medication is specifically directed against the COVID-19 spike protein, designed to block the virus' attachment and entry into human cells. Do you have new or increased oxygen requirement due to COVID 19? No, I do need to let you know that your vital signs will be taken on the arrival for the infusion center. If you are found to be in needof oxygen due to COVID-19 then you will not be infused with MAB rather you will be referred to an urgent care or ED for evaluation of worsening disease. Are you having COVID symptoms now? Yes, if so what date did they start 06/07/21 Have you been previously tested and diagnosed with COVID-19? Yes; What was the date the of your first positive test? December 22, 2020. If your first positive test was more than 90 days prior you are eligible for MAB infusion. I need to let you know that this medication is investigational because it is still being studied. The FDA has approved the use of this medication under an EUA while data is still being collected; but early studies suggest that it reduces the risk of hospitalization. The FDA's Emergency Use Authorization (EUA) has authorized people to receive monoclonal antibody infusions for the treatment of mild COVID-19. [facility] supports this treatment for certain people. Tell your healthcare provider about all of your medical conditions, including if you: ??? Have any allergies ??? Are or plan to become ??? Are or plan to breastfeed ??? Have any serious illnesses ??? Are taking any medications (prescription, [id number], vitamins, and herbal products) How will I receive a monoclonal antibody infusion? Monoclonal antibodies are given to you through a vein in your arm over approximately 30 - 60 minutes. You will be observed for 1 hour after the infusion is complete to monitor for side effects. You will receive one dose of the monoclonal antibody infusion by IV infusion. What are the important possible side effects of monoclonal antibodies? The most commonly reported side effects in clinical studies have been nausea, diarrhea, dizziness, headache, itching and vomiting. Serious reactions such as allergic reactions or infusion reactions have occurred but are uncommon. Tell your health care provider right away if you have any of the following signs or symptoms of an allergic reaction: fever, chills, nausea, headache, shortness of breath, low blood pressure, wheezing, swelling of your lips face or throat, rash including hives, itching, muscle aches and dizziness. Because monoclonal antibody infusions are still being studied, not a lot of people have been given monoclonal antibody infusions yet, and it is possible that not all of the risks are known at this time. Serious and unexpected side effects may happen. Specific studies have not been conducted to address the possible risks that a monoclonal antibody infusion could interfere with your body's own ability to fight off a future infection of SARS-CoV-2 and/or whether it could reduce your body's immune response to a vaccine for SARS-CoV-2 . Talk to your healthcare provider if you have any questions including whether the risks of serious SARS-CoV-2 infection outweigh the potential risks of monoclonal antibody infusion. Patients who receive a monoclonal antibody infusion are still eligible for a COVID-19 vaccine. Patients who receive monoclonal antibody therapies are advised to delay COVID vaccination for 90 days after receiving the monoclonal therapy. Some patients have expressed concerns about disrupting their vaccine schedule by accepting the monoclonal therapy. We strongly recommend that patients offered monoclonal therapies not decline treatments due to concerns about interfering with vaccination schedules. The vaccine is not an effective treatment for an acute COVID infection but an infusion of monoclonalantibodies is and existing data shows that the risk of re- infection with COVID-19 within 90 days is low. CDC experts agree that the benefits of monoclonal therapies is greater than the risk of delaying vaccination. 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 We also strongly encourage you to get your flu vaccine this year once your isolation has ended and you are feeling well. Have you had a COVID-19 vaccine? No I wanted to share with you that if you have completed your COVID19 vaccine series and then test positive while being symptomatic you are eligible to receive MAB. MAB has been shown to benefit COVID-19 patients who have previously been vaccinated. I am happy to share with you that since March 2020 [facility] has infused over [id number] patients with a monoclonal antibody infusion across our [place] sites. I am sharing this because we havenot seen any serious side effects in the patients who choose to receive the infusion. The side effects that we are seeing are similar to patients who choose not to receive the medication at all. Patients have reported to us mild fever, diarrhea, chills for a short while, and/or hives. What other treatment choices are there? Like monoclonal antibody infusions, the FDA may allow for the emergency use of other medicines to treat people with COVID-19. Go to https://www.jqlgb95qcfqjvpkznqbesohjsb.nih.gov/ for information on the emergency use of other medicines that are not approved by FDA to treat people with COVID- 19. Your healthcare provider may talk with you about clinical trials you may be eligible for. It is your choice to be treated or not to be treated with a monoclonal antibody infusion. Should youdecide not to receive a monoclonal antibody infusion or stop it at any time, it will not change yourstandard medical care. Are you or ? Yes. While there is limited evidence regarding the use of COVID monoclonal antibody and antiviral therapy in , there is evidence that treating womenwith these medications is beneficial. In September 2020, was added to the list of high risk condi tions that qualify patients for emergency use authorization (EAU) medications. is known jeanne a high risk condition for developing severe COVID disease, and severe disease can cause serious complications in . For a mother and her unborn baby, the benefit of receiving these medications is likely greater than the risk from the treatment. The [facility] Obstetrics and Gynecology teamsupports the use of monoclonal antibody and certain antiviral therapies for the prevention of severedisease in women. In our experience these medications are well tolerated by patients who are . If you have further questions, you may contact your care team. How do I report side effects with monoclonal antibody infusion? Tell your healthcare provider right away if you have any urgent side effects. For non-urgent side effects or side effects that bothers you or does not go away please contact the care team coordinating your COVID care during business hours. This may be your primary care provider, your COVID care team or your remote monitoring nurse team, which ever is applicable after emergency care, if needed, has been reached. Report side effects to [place] [employer] at www.fda.gov/medwatch, call 5-222-NIS-8222. How can I learn more? Ask your healthcare provider ??? Visit https://www.mfgxi19xxgphxakcbqxyzyefgy.nih.gov/ ??? Contact your local or state public health department Would you like to learn more about what an Emergency Use Authorization (EUA)?Yes; The [place] FDA has made these monoclonal antibody infusions available under an emergency access mechanism calledan EUA. The EUA is supported by a [place] of Health and Human Service (HHS) declaration that circumstances exist to justify the emergency use of drugs and biological products during the COVID-19 pandemic. What is the cost for this medication? The medication is provided to [facility] at no charge and there is no cost of the medication to youthe patient. Any associated costs with the infusion will be billed to the patient's insurance company. [place] does not want cost to be a barrier to infusion so please let us know at your infusion if you need more information or are worried about cost being a barrier. If you are uninsured or underinsuredyou will still be able to receive this medication free of cost. Medication Interactions Please know that there has been a large review by pharmacists, and this medication is not likely to interfere with any normal medication patients may be taking. This is possible as your body processes this medication differently than standard prescription medications. Given how this medication helps your body it is better to receive this medication as soon as possible if you agree to the infusion. Please know that our team is offering and will provide you this treatment for COVID-19 as part of a larger team that is coordinating your overall care. If you have continued questions after your infusion or your symptoms get worse please reach out to the team coordinating your clinical care, either a COVID-19 focused team or your primary care provider's office. If you have a patient portal please look at your messages as there may be one awaiting your review from the clinical team coordinating your care. Do you agree/consent to receive this infusion? Yes; The following education has been completed in accordance with the FDA Emergency Use Authorization (EUA) requirements: Informed patient/caregiver thatmonoclonal antibody infusions are an unapproved drug that is authorized for use under this EUA. Informed patient/caregiver of alternatives to receiving authorized monoclonal antibody infusions The Fact Sheet for Patients, Parents and Caregivers will be provided to patient/caregiver at the [facility]. Remote Patient Monitoring: System Calculated MASS Score: Monoclonal Antibody Screening Score (MASS) Total Points [...] Current as of 2 days ago (Sunday) Patient has a MASS >/= 4, has symptoms of COVID-19, is day 0-5 from symptom onset OR requires monitoring due to having moderate symptoms with clinical concern progressing to severe covid-19. No; Youdo not qualify for Remote Patient Monitoring COVID-19 Isolation Beginning of isolation (day 0) is considered the start of onset of symptoms. Effective 05/02/21, the CDC now recommends a minimum 5 day isolation for the general population who tests positive for COVID-19 and who are asymptomatic or with symptoms that are resolving (without a fever for 24 hours), followed by 5 days of wearing a mask when around others to minimize the risk of infecting people they encounter. Individuals who are immune compromised should isolate for a minimum of 10 days. An individual must, at a minimum, follow the isolation and quarantine requirements outlined by [facility] public health department. All isolation periods are for a minimum number of days, and patients must still meet criteria of being fever free and having improving symptoms for 24hour prior to ending home isolation. The patient may end home isolation when they meet the following criteria: ??? They have met the minimum days of the recommended isolation period (day 0 is day of symptom onset OR date of positive test if they never had symptoms) ??? They have been afebrile at least 24 hours without the use of fever reducing medications ??? Their symptoms are improving Thank you for your time, I will connect with the rest of the team to let them know the results of this phone call. PLAN Disposition/Recommendation: self-care is appropriate at this time, patient encouraged to call back with questions Information/Education: patient/caller able to teach back Caller agreeable to plan of care: yes The following references were used: nursing clinical judgement and patient education resources: monoclonal antibody therapy OMER CONSULTING MANAGER documented in this encounter Plan of Treatment Not on filedocumented as of this encounter Visit Diagnoses Diagnosis COVID-19 Infection - Primary documented in this encounter Additional Health Concerns Infection Onset Date Last Indicated Resolved Time COVID19 06/07/2021 06/09/2021 06/29/2021 5:40 AM CUSTOMER CONSULTING MANAGER Assessment Noted Time PHQ-9 Depression Total Score: 5 03/09/2021 4:24 PM CDT documented as of this encounter Care Teams [facility] Relationship Specialty Start Date End Date Domonique Jones APRN, C.N.P., D.N.P. PCP - General 10/19/16 [address] [place] [id number] documented as of this encounter
--- OUTSIDE RECORDS SUMMARY | 2021-12-14 01:28 | XMS_ITS | Encounter Summary ---
:1990 Author Organization [facility] Address [address] [place] [address] Care Team Providers Name Role Phone Domonique Jones APRN C.N.PSymone, D.N.P. Primary Care Provider Encounter Details Date Type Department Care Team Description 10/20/2020 Hospital Encounter Department of Domonique Jones Pain Epigastric Laboratory Medicine in SERGE Guerrero C.N.PSymone, [place], [place] D.N.P. [address] [place], [place] [phone] Social History Tobacco Use Types Packs/Day [...] week 03/05/2021 How often do you attend methodist or episcopalian services? Never 03/05/2021 Do you belong to any clubs or organizations such as methodist N o 03/05/2021 groups, unions, fraternal or [...] place to sleep or slept in a intermediate (including now)? Education Answer Date Recorded What is the highest level of school Master's degree (e.g., Candice Nieves, MS, 01/30/2019 you have completed or the highest Rani, MEd, GEOGRAPHIC INFORMATION SYSTEMS ANALYST, MARLEN) degree you have received? Sex Assigned at Date Recorded Female 01/16/2018 3:45 PM CDT documented as of this encounter Medications at Time of Discharge Medication Sig Dispensed Refills Start Date End Date [id number] Take by mouth. 0 [id number] ORAL UNABLE TO FIND Patient uses 0 shakeology calcium carbonate Chew 1 tablet as 0 1 05/21/2020 (TUMS) 500 mg (200 mg needed for calcium) chewable indigestion or tablet heartburn. famotidine (PEPCID) 20 Take 1 tablet (20 mg 120 tablet 0 03/21/2021 mg tabletIndications: total) by mouth 2 Gastritis (two) times a day. magnesium hydroxide Take 10 mL by mouth 0 03/21/2021 (MILK OF MAGNESIA) as needed. 2,400 mg/10 mL suspension omeprazole (PriLOSEC) Take 1 capsule (40 mg 60 capsule 0 03/21/[address] total) by mouth capsuleIndications: daily. Gastritis pimecrolimus (ELIDEL) 1 Apply 1 application 0 04/201603/21/2021 % cream topically 2 (two) times a day. Patient stated she uses as needed sertraline (ZOLOFT) 50 Take 1 tablet (50 mg 90 tablet 3 03/202103/21/2021 mg tablet total) by mouth daily. documented as of this encounter Plan of Treatment Not on filedocumented as of this encounter Procedures Procedure Name Priority Date/Time Associated Comments Diagnosis CBC WITHOUT Routine 10/20/2020 1:35 Pain Epigastric Results f or this DIFFERENTIAL, B PM CDT procedure ar e in the results section. ALANINE AMINOTRANSFERASE Routine 10/20/2020 1:35 Pain Epigastr ic Results for this (ALT), S/P PM CDT procedure are i n the results section. ASPARTATE Routine 10/20/2020 1:35 Pain Epigastric Results f or this AMINOTRANSFERASE (AST), PM CDT proc edure are in S/P the results section. ALKALINE PHOSPHATASE, Routine 10/20/2020 1:35 Pain Epigastric Results for this S/P PM CDT procedure are i n the results section. LIPASE, S/P Routine 10/20/2020 1:35 Pain Epigastric Results f or this PM CDT procedure are i n the results section. CREATININE WITH EGFR, Routine 10/20/2020 1:35 Pain Epigastric Results for this S/P PM CDT procedure are i n the results section. BILIRUBIN, TOT, S/P Routine 10/20/2020 1:35 Pain Epigastric Re sults for this PM CDT procedure are i n the results section. AMYLASE, TOT, S Routine 10/20/2020 1:35 Pain Epigastric Result s for this PM CDT procedure are i n the results section. documented in this encounter Results Creatinine with Estimated GFR (10/20/2020 1:35 PM CDT) P athologist Signature Creatinine, P 0.66 0.59 - 1.04 10/20/2020 [facility] mg/dL 2:09 PM CDT eGFR-Black/Afri >90 >=60 10/20/2020 [facility] can Malawian mL/min/BSA 2:09 PM CDT Comment: ----ADDITIONAL INFORMATION---- Estimated GFR calculated using the 2009 CKD_EPI creatinine equation. eGFR Non-Black/ >90 >=60 mL/min/BSA 10/20/2020 2:09 PM CDT [facility] Comment: ----ADDITIONAL INFORMATION---- Estimated GFR calculated using the 2009 CKD_EPI creatinine equation. Specimen Anatomical Collection Method Collection Time Receive d Time (Source) Location / / Volume Laterality Blood (Blood, 10/20/2020 1:35 PM 10/21/19 21 1:42 Venous) CDT PM CDT Domonique Jones APRN, C.N.P., D.N.P. LAB BLOOD ADD-ON Performing Organization Address City/State/ZIP Code Phon e Number [facility] [address] [place] [address] [facility] [place] [facility] [place] [id number] System in [place] [address] Amylase, Total (10/20/2020 1:35 PM CDT) P athologist Signature Amylase, Total, 64 28 - 100 10/20/2020 [facility] P U/L 2:09 PM CDT Specimen Anatomical Collection Method Collection Time Receive d Time (Source) Location / / Volume Laterality Blood (Blood, 10/20/2020 1:35 PM 10/21/19 21 1:42 Venous) CDT PM CDT Domonique Jones APRN, C.N.P., D.N.P. LAB BLOOD ADD-ON Performing Organization Address City/[facility]/ZIP Code Phon e Number [facility] [address] [place] [address] [facility] [place] [facility] [place] [id number] System in [place] [address] Lipase (10/20/2020 1:35 PM CDT) P athologist Signature Lipase, P 30 13 - 60 U/L 10/20/2020 2:09 [facility] PM CDT Specimen Anatomical Collection Method Collection Time Receive d Time (Source) Location / / Volume Laterality Blood (Blood, 10/20/2020 1:35 PM 10/21/19 21 1:42 Venous) CDT PM CDT Domonique Jones APRN, C.N.P., D.N.P. LAB BLOOD ADD-ON Performing Organization Address City/State/ZIP Code Phon e Number [facility] [address] [place] [address] [facility] [place] [facility] [address] System in [place] [address] Bilirubin, Total (10/20/2020 1:35 PM CDT) P athologist Signature Bilirubin, 0.4 <=1.2 mg/dL 10/20/2020 [facility] Total, P 2:09 PM CDT Specimen Anatomical Collection Method Collection Time Receive d Time (Source) Location / / Volume Laterality Blood (Blood, 10/20/2020 1:35 PM 10/21/19 1:42 Venous) CDT PM CDT Domonique Jones APRN C.N.P., D.N.P. LAB BLOOD ADD-ON Performing Organization Address City/State/ZIP Code Phon e Number [facility] [address] [place] [place] [address] [facility] [place] [facility] [place] [id number] System in [place] [address] ALT (Alanine Aminotransferase) (10/20/2020 1:35 PM CDT) [facility] gist Method Time Signature Alanine 26 7 - 45 10/20/2020 [facility] Aminotransferase U/L 2:09 PM CDT (ALT), P Specimen Anatomical Collection Method Collection Time Receive d Time (Source) Location / / Volume Laterality Blood (Blood, 10/20/2020 1:35 PM 10/21/19 21 1:42 Venous) CDT PM CDT Domonique Jones APRN C.N.P., D.N.P. LAB BLOOD ADD-ON Performing Organization Address City/State/ZIP Code Phon e Number [facility] [address] [place] [address] [facility] [place] [facility] [place] [address] System in [place] [address] AST (Aspartate Aminotransferase) (10/20/2020 1:35 PM CDT) Patholo gist Method Time Signature Aspartate 32 8 - 43 10/20/2020 [facility] Aminotransferase U/L 2:09 PM CDT (AST), P Specimen Anatomical Collection Method Collection Time Receive d Time (Source) Location / / Volume Laterality Blood (Blood, 10/20/2020 1:35 PM 10/21/19 21 1:42 Venous) CDT PM CDT Nick Jordan APRN.N.P., D.N.P. LAB BLOOD ADD-ON Performing Organization Address City/[facility]/ZIP Code Phon e Number [facility] [address] [place] [address] [place] [address] System in [place] [address] Alkaline Phosphatase (10/20/2020 1:35 PM CDT) P athologist Signature Alkaline 91 35 - 104 10/20/2020 [facility] Phosphatase, P U/L 2:09 PM CDT Specimen Anatomical Collection Method Collection Time Receive d Time (Source) Location / / Volume Laterality Blood (Blood, 10/20/2020 1:35 PM 10/21/19 21 1:42 Venous) CDT PM CDT Nick Jordan APRN.N.P., D.N.P. LAB BLOOD ADD-ON Performing Organization Address City/[facility]/ZIP Code Phon e Number [facility] [address] [place] [address] [place] [address] System in [place] [address] CBC without Differential (10/20/2020 1:35 PM CDT) P athologist Signature Hemoglobin 14.6 11.6 - 10/20/2020 [facility] 15.0 g/dL 1:46 PM CDT Hematocrit 43.3 35.5 - 10/20/2020 [facility] 44.9 % 1:46 PM CDT Erythrocytes 4.57 3.92 - 10/20/2020 [facility] 5.13 1:46 PM CDT x10(12)/L MCV 94.7 78.2 - 10/20/2020 [facility] 97.9 fL 1:46 PM CDT RBC Distrib Width 12.4 12.2 - 10/20/2020 [facility] 16.1 % 1:46 PM CDT Platelet Count 279 157 - 371 10/20/2020 [facility] x10(9)/L 1:46 PM CDT Leukocytes 8.5 3.4 - 9.6 10/20/2020 [facility] x10(9)/L 1:46 PM CDT Specimen Anatomical Collection Method Collection Time Receive d Time (Source) Location / / Volume Laterality Blood (Blood, 10/20/2020 1:35 PM 10/21/19 1:42 Venous) CDT PM CDT Nick Jordan APRN.N.Lori, D.N.P. LAB BLOOD ADD-ON Performing Organization Address City/State/ZIP Code Phon e Number [facility] [address] [place] [address] [facility] [place] [address] System in [place] [address] documented in this encounter Visit Diagnoses Diagnosis Pain Epigastric documented in this encounter Additional Health Concerns Assessment Noted Time PHQ-9 Depression Total Score: 8 06/24/2020 6:13 PM HYDROGEN POWER PLANT ENGINEER documented as of this encounter Care Teams Datastage Consultant Relationship Specialty Start Date End Date Domonique Jones APRN, C.N.P., D.N.P. PCP - General 10/19/[address] [phone] documented as of this encounter
--- OUTSIDE RECORDS SUMMARY | 2021-12-14 01:28 | XMS_ITS | Encounter Summary ---
:1990 Author Organization [facility] Address [address] [place] [address] Care Team Providers Name Role Phone Domonique Jones APRN, C.N.P., D.N.P. Primary Care Provider Encounter Details Date Type Department Care Team Description 03/21/2021 Silent Schedule Department of Juan Donnelly Obstetrics and J, MSymoneDSymone Examination Test Gynecology in [address] With Positive [place], [place] [address] [id number] [place] [phone] (Work) [phone] Social History Tobacco Use Types Packs/Day Years [...] week 03/05/2021 How often do you attend hinduism or buddhism services? Never 03/05/2021 Do you belong to any clubs or organizations such as hinduism N o 03/05/2021 groups, unions, fraternal or [...] place to sleep or slept in a [facility] (including now)? Education Answer Date Recorded What is the highest level of school Master's degree (e.g., Candice Nieves, MS, 01/30/2019 you have completed or the highest Rani, MEd, QUOTATION CHECKER, MARLEN) degree you have received? Sex Assigned at Date Recorded Female 01/16/2018 3:45 PM CDT documented as of this encounter Miscellaneous Notes Result Encounter Note - Juan Donnelly M.D. - 03/21/2021 5:41 PM DRIVER ENGINEER Dear Claudia, Your ultrasound was normal. The baby looks good! As we discussed, your due date remains the same. Have a great week! Juan Donnelly M.D. ER ENGINEER documented in this encounter Plan of Treatment Not on filedocumented as of this encounter Procedures Procedure Name Priority Date/Time Associated Comments Diagnosis US OB FIRST RAD - Routine 03/21/2021 3:40 Results for this TRIMESTER (most inpatients PM DRIVER ENGINEER Examination Test procedu re are in and all With Positive the results outpatients) Result section. documented in this encounter Results US OB First Trimester (03/21/2021 3:40 PM DRIVER ENGINEER) Anatomical Region Laterality Modality Body, Ultrasound OB RST LOS, Ultrasound ARZ LOS N/A Ultrasound Specimen (Source) Anatomical Collection Method Collection Time Re ceived Time Location / / Volume Laterality 03/21/2021 4:37 PM DRIVER ENGINEER Impressions 03/21/2021 4:38 PM DRIVER ENGINEER Single, viable, intrauterine gestation with MICHELLE of October 27, 2021, consistent with previous dating. In general, it is reasonable to use the sonographically derived MICHELLE if it differs from that calculated using the last menstrual period (LMP) by more than seven days in the fir st trimester and by more than 10 days in the second trimester. In the third trimester, a three-week discrepancy between LMP dating and ultra sound dating is allowed before changing MICHELLE. [facility] in [place] RIG MECHANIC Dept. [phone] Narrative 03/21/2021 4:38 PM DRIVER ENGINEER First Trimester Ultrasound EXAM: ??Confirmation of HEALTH CARE PROVIDER: ??Dr. Donnelly COMPARISON: ??None prior RELEVANT CLINICAL INFORMATION/INDICATION : Confirm dates and viability Estimated Date of Delivery (MICHELLE) by LMP: ??October 30, 2021. FINDINGS: Gestational Sac: Present Yolk Sac: Present heart rate: ??174 beats per minute . Embryo: Present [address] Rump Length: ??20.4 mm. Age and MICHELLE by current ultrasound measur ements: ??8 weeks and 4 days, MICHELLE October 27, 2021. Right ovary: Appears normal Left ovary: Appears normal Adnexa: Within normal limits Uterus: Within normal limits Uterine position: ??Anteverted Cul-de-sac: Normal, no free fluid Procedure Note Marino Dixon M.D. - 03/21/2021Formatt ing of this note might be different from the original. First Trimester Ultrasound EXAM: Confirmation of HEALTH CARE PROVIDER: Dr. Donnelly COMPARISON: None prior RELEVANT CLINICAL INFORMATION/INDICATION : Confirm dates and viability Estimated Date of Delivery (MICHELLE) by LMP: October 30, 2021. FINDINGS: Gestational Sac: Present Yolk Sac: Present heart rate: 174 beats per minute. Embryo: Present [address] Rump Length: 20.4 mm. Age and MICHELLE by current ultrasound measur ements: 8 weeks and 4 days, MICHELLE October 27, 2021. Right ovary: Appears normal Left ovary: Appears normal Adnexa: Within normal limits Uterus: Within normal limits Uterine position: Anteverted Cul-de-sac: Normal, no free fluid IMPRESSION: Single, viable, intrauterine gestation w ith MICHELLE of October 27, 2021, consistent with previous dating. In general, it is reasonable to use the sonographically derived MICEHLLE if it differs from that calculated using the last menstrual period (LMP) by more than seven days in the fir st trimester and by more than 10 days in the second trimester. In the third trimester, a three-week discrepancy between LMP dating and ultra sound dating is allowed before changing MICHELLE. [facility] in [place] RIG MECHANIC Dept. [phone] Juan Donnelly M.D. IMG OB US PROCEDURES documented in this encounter Visit Diagnoses Diagnosis Examination Test With Positive Result (HCC) documented in this encounter Additional Health Concerns Assessment Noted Time PHQ-9 Depression Total Score: 5 03/09/2021 4:24 PM CDT documented as of this encounter Care Teams [place] Joiner Relationship Specialty Start Date End Date Domonique Jones APRN, C.N.P., D.N.P. PCP - General 10/19/[address] [phone] documented as of this encounter
--- OUTSIDE RECORDS SUMMARY | 2021-12-14 01:28 | XMS_ITS | Encounter Summary ---
:1990 Author Organization [facility] Address [address] [place] [address] Care Team Providers Name Role Phone Domonique Jones APRN, C.N.P., D.N.P. Primary Care Provider Reason for Visit Reason Comments Nurse Visit NOB ed/intake appt Encounter Details Date Type Department Care Team Description 03/09/2021 Virtual Visit Department of Juan Donnelly M.D. [address] [place] [address] Encounter For Supervision Of Normal Firs t Unspecified Trimester (Primary Dx); Obstetrics and Hina Green R.N. [address] [place] [address] Examination Test With Positive Result Gynecology in [place], [place] [address] [place] [phone] Social History Tobacco Use Types Packs/Day [...] week 03/05/2021 How often do you attend caodaism or uatsdin services? Never 03/05/2021 Do you belong to any clubs or organizations such as caodaism N o 03/05/2021 groups, unions, fraternal or [...] place to sleep or slept in a residential (including now)? Education Answer Date Recorded What is the highest level of school Master's degree (e.g., M A, MS, 01/30/2019 you have completed or the highest Rani, MEd, PLUGGER MAN, MARLEN) degree you have received? Sex Assigned at Date Recorded Female 01/16/2018 3:45 PM CDT documented as of this encounter Patient Instructions Patient InstructionsHina Green R.N. - 03/09/2021 4:00 PM CDT Review education books, brochures, handouts provided today. Be sure to let your provider know if youwould like to do the optional testing. Avoid: alcohol, drugs, smoking during . Exercise: at least 30 Minutes, 3 times per week following precautions discussed today. Follow healthy diet to maintain healthy weight gain. Discuss any medication/supplements with your provider before taking. Call or portal message your care team with any symptoms of depression. Call or portal message with any question or concerns. Material Provided Today: Beginnings: , , and [facility] brochure-[facility] documented in this encounter Progress Notes Hina Green R.N. - 03/09/2021 4:00 PM CDT Consult conducted via real-time audio/video technology by Hina Green R.N. in [facility] to the patient in patient home. episode opened-please see history section. H/O PDA closure as . H/O anxiety/depression utilizing therapy. States to well emotionally. PHQ9/GAD7 updated and good communication with care team encouraged. Questions about chiropractor-advised to let him/her know of , skein yard drier or superintendent concrete mixing plant services in [place]-advised none employed by hospital or clinic. She may consult private skein yard drier if she desires. Has been having nausea-discussed eating foods that are appealing, Vitamin B6/Unisom per [facility] Mangaing Nausea and Vomiting During -Advised to call if symptoms worsen if unable to retain fluids for 24 hours. Encouraged to call with questions or concerns. documented in this encounter Plan of Treatment Not on filedocumented as of this encounter Results Bacterial Culture, Aerobic + Susc, Urine (03/25/2021 4:00 PM IMAGING CLERK) [facility] gist Method Time Signature Urine Culture No growth 03/26/2021 [facility] after 1 day 4:28 PM IMAGING CLERK of incubation. Specimen Anatomical Collection Method Collection Time Receive d Time (Source) Location / / Volume Laterality Urine (Urine, 03/25/2021 4:00 PM 03/25/20 21 7:46 Midstream) IMAGING CLERK PM IMAGING CLERK Comment: Specimen Source Site: Urine Juan Donnelly M.D. LAB MICROBIOLOGY - GENERAL O RDERABLES Performing Organization Address City/State/ZIP Code Phon e Number [facility]- [address] [place] [phone] [place] [address] [place] [address] System in [place] [address] [place] [address] Urinalysis with Microscopic if Indicated (03/25/2021 4:00 PM IMAGING CLERK) athologist Signature Source Urine, 03/25/2021 [place] Urine, Clean 4:04 PM IMAGING CLERK Catch Clarity Clear Clear 03/25/2021 [place] 4:04 PM IMAGING CLERK Color Yellow 03/25/2021 [facility] 4:04 PM IMAGING CLERK Comment: ----REFERENCE VALUE---- Colorless Yellow Shadia Blood Negative Negative 03/25/2021 4:04 PM IMAGING CLERK [place] Nitrite Negative Negative 03/25/2021 4:04 PM IMAGING CLERK [place] Leukocyte Esterase Negative Negative 03/25/2021 4:04 PM CS T [place] Protein Negative mg/dL 03/25/2021 4:04 PM IMAGING CLERK [facility] Comment: ----REFERENCE VALUE---- Negative Trace Glucose Negative Negative mg/dL 03/25/2021 4:04 PM IMAGING CLERK [place] Ketone Negative Negative mg/dL 03/25/2021 4:04 PM IMAGING CLERK [place] [facility] Bilirubin Negative Negative 03/25/2021 4:04 PM IMAGING CLERK [facility] pH 6.0 5.0 - 8.0 03/25/2021 4:04 PM IMAGING CLERK [facility] Specific Alverda 1.010 1.001 - 1.035 03/25/2021 4:04 PM IMAGING CLERK [facility] Urobilinogen 0.2 0.2 - 1.0 mg/dL 03/25/2021 4:04 PM CS T [place] Specimen Anatomical Collection Method Collection Time Receive d Time (Source) Location / / Volume Laterality Urine (Urine, 03/25/2021 4:00 PM 03/25/20 4:00 Clean Catch) IMAGING CLERK PM IMAGING CLERK Juan Donnelly M.D. LAB URINE ORDERABLES Performing Organization Address City/State/ZIP Code Phon e Number [facility]- [address] [place] [address] [place] [address] System in [place] [address] [facility] [place] Syphilis Total Ab w/ Reflex, Serum (03/25/2021 3:58 PM IMAGING CLERK) [facility] gist Method Time Signature Syphilis Nonreactive Nonreactive 03/28/2021 [facility] Total Ab w/ 2:53 PM IMAGING CLERK Reflex Comment: No serologic evidence of infection with T. pallidum (syphilis). ??Repeat testing may be cons idered in patients with suspected acute or primary syphilis in 2-4 weeks. For additional information on interpreta tion of the syphilis reverse algorithm and resul ts, see: [email or web address]/ it-mmfiles/Syphilis_[email or web address]_Algorithm.p df Specimen Anatomical Collection Method Collection Time Receive d Time (Source) Location / / Volume Laterality Blood (Blood, 03/25/2021 3:58 PM 03/26/20 3:22 Venous) IMAGING CLERK PM IMAGING CLERK Juan Donnelly M.D. LAB BLOOD ADD-ON Performing Organization Address [facility] Phon e Number [address] [place] [address] System in [address] Rubella Antibodies, IgG (03/25/2021 3:58 PM IMAGING CLERK) athologist Signature Rubella Ab, Positive 03/28/2021 [facility] IgG, S 2:53 PM IMAGING CLERK Comment: Results suggest response to immunization or prior exposure to the virus. ----REFERENCE VALUE---- Vaccinated: Positive (>=1.0 AI) Unvaccinated: Negative (<=0.7 AI) Rubella IgG Antibody Index 2.9 03/28/2021 2: 53 PM IMAGING CLERK [facility] Specimen Anatomical Collection Method Collection Time Receive d Time (Source) Location / / Volume Laterality Blood (Blood, 03/25/2021 3:58 PM 03/26/20 3:22 Venous) IMAGING CLERK PM IMAGING CLERK Juan Donnelly M.D. LAB MICROBIOLOGY - BLOOD ORD ERABLES Performing Organization Address [facility] Phon e Number [phone] [place] [address] System [address] HIV-1/-2 Ag and Ab Scrn, Plasma (03/25/2021 3:58 PM IMAGING CLERK) athologist Signature HIV Ag/Ab Negative Negative 03/28/2021 [facility] Scrn, 2:53 PM IMAGING CLERK P Comment: Negative result does not rule out HIV in fection. If exposure to HIV infection occurred <14 d ays ago, contact the laboratory to request additi on of HIV-1 RNA detection / quantification test. HIV-1 p24 Ag Scrn, P Negative Negative 03/28/2021 2:53 PM IMAGING CLERK [facility] Comment: Negative result does not rule out HIV in fection. If exposure to HIV infection occurred <14 d ays ago, contact the laboratory to request additi on of HIV-1 RNA detection / quantification test. HIV-1 Ab Scrn, P Negative Negative 03/28/2021 2:5 3 PM IMAGING CLERK [facility] Comment: Negative result does not rule out HIV in fection. If exposure to HIV infection occurred <14 d ays ago, contact the laboratory to request additi on of HIV-1 RNA detection / quantification test. HIV-2 Ab Scrn, P Negative Negative 03/28/2021 2:5 3 PM IMAGING CLERK [facility] Comment: Negative result does not rule out HIV in fection. If exposure to HIV infection occurred <14 d ays ago, contact the laboratory to request additi on of HIV-1 RNA detection / quantification test. Specimen Anatomical Collection Method Collection Time Receive d Time (Source) Location / / Volume Laterality Blood (Blood, 03/25/2021 3:58 PM 03/26/20 3:22 Venous) IMAGING CLERK PM IMAGING CLERK Juan Donnelly M.D. LAB MICROBIOLOGY - BLOOD ORD ERABLES Performing Organization Address City/[facility] Phon e Number [address] [place] [address] [place] [address] System in [address] HBs Antigen , Serum (03/25/2021 3:58 PM IMAGING CLERK) athologist Signature HBs Antigen Negative Negative 03/26/2021 [facility] , S 11:43 AM IMAGING CLERK Specimen Anatomical Collection Method Collection Time Receive d Time (Source) Location / / Volume Laterality Blood (Blood, 03/25/2021 3:58 PM 03/26/20 7:30 Venous) IMAGING CLERK AM IMAGING CLERK Juan Donnelly M.D. LAB MICROBIOLOGY - BLOOD ORD ERABLES Performing Organization Address City/State/ZIP Code Phon e Number [facility] [address] [place], [place] [address] [facility] [place] [address] Laboratory Medicine and Pathology [address] (ABNORMAL) CBC without Differential (03/25/2021 3:58 PM IMAGING CLERK) Patholo gist Method Time Signature Hemoglobin 14.6 11.6 - 03/25/2021 [facility] 15.0 g/dL 4:07 PM IMAGING CLERK Hematocrit 42.8 35.5 - 03/25/2021 [place] 44.9 % 4:07 PM IMAGING CLERK Erythrocytes 4.66 3.92 - 03/25/2021 [facility] 5.13 4:07 PM IMAGING CLERK x10(12)/L MCV 91.8 78.2 - 03/25/2021 [facility] 97.9 fL 4:07 PM IMAGING CLERK RBC Distrib Width 12.4 12.2 - 03/25/2021 [facility] 16.1 % 4:07 PM IMAGING CLERK Platelet Count 291 157 - 371 03/25/2021 [facility] x10(9)/L 4:07 PM IMAGING CLERK Leukocytes 13.6 (H) 3.4 - 9.6 03/25/2021 [facility] x10(9)/L 4:07 PM IMAGING CLERK Specimen Anatomical Collection Method Collection Time Receive d Time (Source) Location / / Volume Laterality Blood (Blood, 03/25/2021 3:58 PM 03/25/20 4:01 Venous) IMAGING CLERK PM IMAGING CLERK Juan Donnelly M.D. LAB BLOOD ADD-ON Performing Organization Address City/State/ZIP Code Phon e Number [facility]- [address] [place] [address] [place] [address] System in [place] [address] Antibody Screen, RBC (with reflex Antibody ID) (03/25/2021 3:58 PM IMAGING CLERK) P athologist Signature Antibody Screen NEG 03/26/2021 [facility] 8:24 AM IMAGING CLERK Specimen Anatomical Collection Method Collection Time Receive d Time (Source) Location / / Volume Laterality Blood (Blood, 03/25/2021 3:58 PM 03/25/20 Venous) IMAGING CLERK 10:42 PM IMAGING CLERK Juan Donnelly M.D. LAB BLOOD BANK TEST ORDERABL ES Performing Organization Address City/State/ZIP Code Phon e Number [facility]- [address] [place] [address] [facility] [place] [address] [facility] [address] ABORh, RBC (03/25/2021 3:58 PM IMAGING CLERK) P athologist Signature ABO Group O 03/26/2021 8:24 AUST AM IMAGING CLERK Rh Type POS 03/26/2021 8:24 AUST AM IMAGING CLERK Specimen Anatomical Collection Method Collection Time Receive d Time (Source) Location / / Volume Laterality Blood (Blood, 03/25/2021 3:58 PM 03/25/20 21 Venous) IMAGING CLERK 10:42 PM IMAGING CLERK Juan Donnelly M.D. LAB BLOOD BANK TEST ORDERABL ES Performing Organization Address City/State/ZIP Code Phon e Number [facility]- [address] [place] [phone] [facility] - [address] documented in this encounter Visit Diagnoses Diagnosis Encounter For Supervision Of Normal Firs t Unspecified Trimester (HCC) - Primary Examination Test With Positive Result (HCC) documented in this encounter Additional Health Concerns Assessment Noted Time PHQ-9 Depression Total Score: 5 03/09/2021 4:24 PM CDT documented as of this encounter Care Teams Asset Specialist Relationship Specialty Start Date End Date Domonique Jones APRN, C.N.P., D.N.P. PCP - General 10/19/[address] [place] [address] documented as of this encounter
--- OUTSIDE RECORDS SUMMARY | 2021-12-14 01:28 | XMS_ITS | Encounter Summary ---
:1990 Author Organization [facility] Address [address] [place] [address] Care Team Providers Name Role Phone Domonique Jones APRN, C.N.P., D.N.P. Primary Care Provider Encounter Details Date Type Department Care Team Description 12/20/2020 Patient Self-Triage CONNECTED CARE Symptom Animal Shelter Clerk, Provider Social History Tobacco Use Types Packs/Day Years [...] week 03/05/2021 How often do you attend mu-ism or baptist services? Never 03/05/2021 Do you belong to any clubs or organizations such as mu-ism N o 03/05/2021 groups, unions, fraternal or [...] place to sleep or slept in a [place] (including now)? Education Answer Date Recorded What is the highest level of school Master's degree (e.g., M Ezequiel, MS, 01/30/2019 you have completed or the highest Rani, MEd, DIRECTOR FINANCIAL SERVICES, MARLEN) degree you have received? Sex Assigned at Date Recorded Female 01/16/2018 3:45 PM CDT documented as of this encounter Plan of Treatment Not on filedocumented as of this encounter Visit Diagnoses Not on filedocumented in this encounter Additional Health Concerns Assessment Noted Time PHQ-9 Depression Total Score: 8 06/24/2020 6:13 PM HIDE SPLITTER documented as of this encounter Care Teams Creative Engagement Director Relationship Specialty Start Date End Date Domonique Jones APRN, C.N.P., D.N.P. PCP - General 10/19/16 [address] [place] [phone] documented as of this encounter
--- OUTSIDE RECORDS SUMMARY | 2021-12-14 01:28 | XMS_ITS | Encounter Summary ---
:1990 Author Organization [facility] Address [address] [place] [address] Care Team Providers Name Role Phone Domonique Jones APRN, C.N.PSymone, D.N.P. Primary Care Provider Reason for Visit Reason Onset Date Comments Testing For Upper Respiratory Virus Symptoms 03/11/2021 Encounter Details Date Type Department Care Team Description 03/11/2021 External Outreach Department of [facility] Shaan Magallon Contact With And Medicine, [facility] Tamara Tesfaye (Suspected) Exposure Building, in [address] [facility] [facility] [address] [facility] [address] OPAL TYSON [phone] (Work) [phone] Social History Tobacco Use Types Packs/Day Years [...] How often do you attend quaker or muslim services? Never 03/05/2021 Do you belong to [...] place to sleep or slept in a usp (including now)? Education Answer Date Recorded What is the highest level of school Master's degree (e.g., M A, MS, 01/30/2019 you have completed or the highest Rani, MEd, ASIC DESIGN ENGINEER, MARLEN) degree you have received? Sex Assigned at Date Recorded Female 01/16/2018 3:45 PM CDT documented as of this encounter Progress Notes Kayla Matta R.N. - 03/11/2021 11:07 AM CDT Encounter created for symptomatic infectious disease screening with possible COVID, Influenza, RSV, and/or Group A Strep testing. documented in this encounter Plan of Treatment Not on filedocumented as of this encounter Procedures Procedure Name Priority Date/Time Associated Diagnosis Comme nts SARS CORONAVIRUS-2 Routine 03/11/2021 11:19 AM Contact With An d Results for this RNA, V CDT (Suspected) Exposure procedu re are in To COVID-19 the results section. documented in this encounter Results SARS Coronavirus-2 RNA, V Symptomatic (03/11/2021 11:19 AM CDT) [facility] Method Time Signature SARS-CoV-2 Swab, 03/12/2021 [facility] Specimen Nasopharynx 2:11 AM CDT Source SARS CoV-2 Undetected Undetected 03/12/2021 [facility] RNA, TMA 2:11 AM CDT Comment: SARS-CoV-2 RNA absent. This result does not rule out COVID-19 in the patient, as the sensitivity of the test depends o n the timing of the specimen collection and the quality of the specim en. Result should be correlated with patient's history and clinical presentat ion. ----ADDITIONAL INFORMATION---- This molecular amplification test was pe rformed using the Aptima SARS-CoV-2 assay ([employer] on the City [employer] tem under emergency use authorization (EUA) by the U.S. Food and Drug Administ ration. Fact sheets for this EUA assay can be fo und at the following links: For Healthcare Providers: https://www.TextRecruit a.gov/media/255685/download For Patients: https://www.fda.gov/media/ 821570/download Specimen Anatomical Collection Method Collection Time Receive d Time (Source) Location / / Volume Laterality Varies 03/11/2021 11:19 03/11/2021 9:45 (Nasopharynx) AM CDT PM CDT Shaan Magallon D.O. LAB MICROBIOLOGY - GENERAL O RDERABLES Performing Organization Address City/State/ZIP Code Phon e Number [facility]- [address] [place] [phone] [place] [address] [place] [address] System [address] documented in this encounter Visit Diagnoses Diagnosis Contact With And (Suspected) Exposure To COVID-19 - Primary documented in this encounter Additional Health Concerns Infection Onset Date Last Indicated Resolved Time COVID19 Pending 03/11/2021 03/11/2021 03/12/2021 2:11 AM CDT Assessment Noted Time PHQ-9 Depression Total Score: 5 03/09/2021 4:24 PM CDT documented as of this encounter Care Teams Analysis Mgr Relationship Specialty Start Date End Date Domonique Jones APRN, C.N.P., D.N.P. PCP - General 10/19/16 [address] [place] [phone] documented as of this encounter
--- OUTSIDE RECORDS SUMMARY | 2021-12-14 01:28 | XMS_ITS | Encounter Summary ---
:1990 Author Organization [facility] Address [address] [place] [address] Care Team Providers Name Role Phone Domonique Jones APRN, C.N.P., D.N.P. Primary Care Provider Encounter Details Date Type Department Care Team Description 12/21/2020 Admin Visit Urgent Care in [place], [place] [address] [facility] [place] [address] [facility] [phone] Social History Tobacco Use Types Packs/Day Years [...] week 03/05/2021 How often do you attend sikhism or judaism services? Never 03/05/2021 Do you belong to any clubs or organizations such as sikhism N o 03/05/2021 groups, unions, fraternal or [...] place to sleep or slept in a correction (including now)? Education Answer Date Recorded What is the highest level of school Master's degree (e.g., M A, MS, 01/30/2019 you have completed or the highest Rani, MEd, FOREIGN LANGUAGE INTERPRETER, MARLEN) degree you have received? Sex Assigned at Date Recorded Female 01/16/2018 3:45 PM CDT documented as of this encounter Plan of Treatment Not on filedocumented as of this encounter Visit Diagnoses Not on filedocumented in this encounter Additional Health Concerns Infection Onset Date Last Indicated Resolved Time COVID19 Pending 12/21/2020 12/21/2020 12/22/2020 2:03 AM CDT Assessment Noted Time PHQ-9 Depression Total Score: 8 06/24/2020 6:13 PM WILLOW WORKER documented as of this encounter Care Teams Pharmacy Technician Per Diem Relationship Specialty Start Date End Date Domonique Jones APRN, C.N.P., D.N.P. PCP - General 10/19/16 [address] [place] [phone] documented as of this encounter
--- OUTSIDE RECORDS SUMMARY | 2021-12-14 01:28 | XMS_ITS | Encounter Summary ---
:1990 Author Organization [facility] Address [address] [place] [address] Care Team Providers Name Role Phone Domonique Jones APRN, C.N.P., D.N.P. Primary Care Provider Reason for Visit Reason Comments COVDEE Nurse Line Encounter Details Date Type Department Care Team Description 03/11/2021 Clinical Communication Division of ROMI Harding Nurse My [facility] Arnold Chavarria [facility] [phone] [place], in (Work) [place], [place] [address] [place] [address] Social History Tobacco Use Types Packs/Day Years [...] week 03/05/2021 How often do you attend nondenominational or gnosticist services? Never 03/05/2021 Do you belong to any clubs or organizations such as nondenominational N o 03/05/2021 groups, unions, fraternal or [...] place to sleep or slept in a fdc (including now)? Education Answer Date Recorded What is the highest level of school Master's degree (e.g., M Ezequiel, MS, 01/30/2019 you have completed or the highest Rani, MEd, AIRCRAFT RESTORER, MARLEN) degree you have received? Sex Assigned at Date Recorded Female 01/16/2018 3:45 PM CDT documented as of this encounter Miscellaneous Notes Telephone Encounter - Aura Harding R.N. - 03/11/2021 10:31 AM CDT COVID-19 Nurse Line Screening ASSESSMENT Region Select appropriate region: : [place] Age Pathway Select approprite pathway: : Adult Have you had close contact* with a person who has a LABORATORY CONFIRMED case of COVID-19 in the past 14 days?: No (Continue Screening) In the last 48 hours, have you had a fever* OR symptoms that are unrelated to a preexisting illness?: New sore throat,New muscle aches (Congestion) Have you received a COVID-19 vaccine in the last 72 hours? : No vaccine received (Continue Screening) Do you have any of the following urgent symptoms?: No urgent symptoms noted (Continue Screening) Have you tested positive for COVID-19 in the last 45 days?: No (Continue Screening) (Tested positiveon 12/22/2020) Are ALL the following criteria met: age between 18 to 75 yrs, main symptom is a sore throat with duration of 24 hrs to 7 days, onset of sore throat not associated with new upper respiratory symptoms*? : No, COVID testing is recommended (End Screening) Symptom Onset Date of symptom onset: 03/16/21 Testing Recommendation Endpoint Is testing recommended? : Recommended to test PLAN Endpoint recommendation: Symptomatic testing indicated, advised to be swabbed for COVID-19 Only , sent to [facility] located at [address] [place] [address] ([facility]). An appointment is required for testing, please call [phone] Sunday-Sunday 7am to 6pm and Sunday & Sunday 9am to 4pm to schedule an appointment. Testing hours are 8am - 4:30pm daily. You can also schedule via your Patient Online Services account., Please avoid using public transportation per CDC recommendation. If you do not have personal transportation please self- quarantine until a personal transportation option is available. Standard Care Points -Get a COVID -19 vaccine as soon as you can if not fully vaccinated. -Wash hands frequently with soap and water, use hand electrical maintenance man if soap and water aren't available. -Wear a mask over your nose and mouth to help protect yourself and others if not fully vaccinated and having no symptoms -Stay 6 feet between yourself and others who don't live with you. -Avoid crowds and poorly ventilated indoor spaces. -Seek emergent care if any of the following occur Trouble breathing Bluish lips or face Persistent pain or pressure in the chest New confusion or inability to rouse. -Notify your regular care provider of any new or worsening symptoms. Symptomatic Carepoints: Stay home and separate yourself from others and stay in a specific sick room if able. Avoid sharing personal or household items. Rest. Hydrate. Take Acetaminophen/Ibuprofen asneeded to control fever and muscles aches. Use over the counter medications as needed for other symptoms. Gargle with 8 ounces of warm salt water several times a day for throat discomfort (1/4 tsp regular salt to 8 ounces or 1 cup warm water). Do not swallow the salt water. Throat lozenges will help keep the throat lubricated. Hard candy, lollipops, and throat lozenges are equally effective. Use a humidifier. If you have received a negative COVID-19 test result and continue to have new or worsening symptoms after 72 hours please call the COVID Nurse Line to assess if you need repeat testing or reach out to your Primary Care Provider for guidance. Education: Patient/caregiver able to teach back Patient agreeable to plan of care: Yes The following references were used: [facility] novel coronavirus (COVID- 19) resources Nursing judgement documented in this encounter Plan of Treatment Not on filedocumented as of this encounter Visit Diagnoses Not on filedocumented in this encounter Additional Health Concerns Assessment Noted Time PHQ-9 Depression Total Score: 5 03/09/2021 4:24 PM CDT documented as of this encounter Care Teams Certified Tower Climber Relationship Specialty Start Date End Date Domonique Jones APRN, C.N.P., D.N.P. PCP - General 10/19/16 [address], [place] [address] documented as of this encounter
--- OUTSIDE RECORDS SUMMARY | 2021-12-14 01:28 | XMS_ITS | Encounter Summary ---
:1990 Author Organization [facility] Address [address] [place] [address] Care Team Providers Name Role Phone Domonique Jones APRN, C.N.PSyomne, D.N.P. Primary Care Provider Reason for Visit Reason Onset Date Comments Testing For Upper Respiratory Virus Symptoms 03/24/2021 Encounter Details Date Type Department Care Team Description 03/24/2021 External Outreach Department of Shaan Magallon And Internal Medicine in J, D.O. (Suspected) Exposure [place], [place] [address] To COVID-19 (Primary [address] [place], [place] Dx) [place] [id number] Social History Tobacco Use Types Packs/Day [...] week 03/05/2021 How often do you attend protestant or yazdanism services? Never 03/05/2021 Do you belong to any clubs or organizations such as protestant N o 03/05/2021 groups, unions, fraternal or [...] have completed or the highest Rani, MEd, PERIOPERATIVE EDUCATOR, MARLEN) degree you have received? Sex Assigned at Date Recorded Female 01/16/2018 3:45 PM CDT documented as of this encounter Progress Notes Agustina Atkinson R.N. - 03/24/2021 8:24 AM CST Encounter created for symptomatic infectious disease screening with possible COVID, Influenza, RSV, and/or Group A Strep testing. WORKER documented in this encounter Plan of Treatment Not on filedocumented as of this encounter Procedures Procedure Name Priority Date/Time Associated Diagnosis Comme nts SARS CORONAVIRUS-2 Routine 03/24/2021 9:44 AM Contact With And Results for this RNA, V FACE WORKER (Suspected) Exposure procedu re are in To COVID-19 the results section. documented in this encounter Results SARS Coronavirus-2 RNA, V Symptomatic (03/24/2021 9:44 AM FACE WORKER) [facility] Method Time Signature SARS-CoV-2 Swab, 03/24/2021 MKTO Specimen Nasopharynx 9:11 PM FACE WORKER Source SARS CoV-2 Undetected Undetected 03/24/2021 MKTO RNA, TMA 9:11 PM FACE WORKER Comment: SARS-CoV-2 RNA absent. This result does not rule out COVID-19 in the patient, as the sensitivity of the test depends o n the timing of the specimen collection and the quality of the specim en. Result should be correlated with patient's history and clinical presentat ion. ----ADDITIONAL INFORMATION---- This molecular amplification test was pe rformed using the Aptima SARS-CoV-2 assay ([employer] on the [employer] tem under emergency use authorization (EUA) by the U.S. Food and Drug Administ ration. Fact sheets for this EUA assay can be fo und at the following links: For Healthcare Providers: https://www.Medisas a.gov/media/590434/download For Patients: https://www.fda.gov/media/ 873641/download Specimen Anatomical Collection Method Collection Time Receive d Time (Source) Location / / Volume Laterality Varies 03/24/2021 9:44 AM 3:12 (Nasopharynx) FACE WORKER PM FACE WORKER Shaan Magallon D.O. LAB MICROBIOLOGY - GENERAL O RDERABLES Performing Organization Address City/State/ZIP Code Phon e Number [facility]- [address] [place] [id number] [place] [address] [place] [address] System in [address] documented in this encounter Visit Diagnoses Diagnosis Contact With And (Suspected) Exposure To COVID-19 - Primary documented in this encounter Additional Health Concerns Infection Onset Date Last Indicated Resolved Time COVID19 Pending 03/24/2021 03/24/2021 03/24/2021 9:12 PM FACE WORKER Assessment Noted Time PHQ-9 Depression Total Score: 5 03/09/2021 4:24 PM CDT documented as of this encounter Care Teams Baseball Winder Relationship Specialty Start Date End Date Domonique Jones APRN, C.N.P., D.N.P. PCP - General 10/19/16 [address] [place] [address] documented as of this encounter
--- OUTSIDE RECORDS SUMMARY | 2021-12-14 01:28 | XMS_ITS | Encounter Summary ---
:1990 Author Organization [facility] Address [address] [place] [address] Care Team Providers Name Role Phone Domonique Jones APRN, C.N.PSymone, D.N.PSymone Primary Care Provider Encounter Details Date Type Department Care Team Description 11/16/2020 Clinical Communication Department of Domonique Ames [facility], Edyta Guerrero APRN, C.N.PSymone, Clinic, in [place] Tyson.N.PSymone [place] [address] [facility] [place] [place] [phone] Social History Tobacco Use Types Packs/Day [...] week 03/05/2021 How often do you attend restorationism or sikhism services? Never 03/05/2021 Do you belong to any clubs or organizations such as restorationism N o 03/05/2021 groups, unions, fraternal or [...] to sleep or slept in a senior living (including now)? Education Answer Date Recorded What is the highest level of school Master's degree (e.g., M A, MS, 01/30/2019 you have completed or the highest Rani, MEd, RIVETING MACHINE OPERATOR AUTOMATIC, MARLEN) degree you have received? Sex Assigned at Date Recorded Female 01/16/2018 3:45 PM CDT documented as of this encounter Plan of Treatment Not on filedocumented as of this encounter Visit Diagnoses Not on filedocumented in this encounter Additional Health Concerns Assessment Noted Time PHQ-9 Depression Total Score: 8 06/24/2020 6:13 PM LINEN SORTER documented as of this encounter Care Teams Sorting Cows Worker Relationship Specialty Start Date End Date Domonique Jones APRN, C.N.P., D.N.P. PCP - General 10/19/[address] [phone] documented as of this encounter
--- OUTSIDE RECORDS SUMMARY | 2021-12-14 01:28 | XMS_ITS | Encounter Summary ---
:1990 Author Organization [facility] Address [address] [place] [address] Care Team Providers Name Role Phone Domonique Jones APRN, C.N.PSymone, D.N.P. Primary Care Provider Reason for Visit Reason Onset Date Comments Testing For Upper Respiratory Virus Symptoms 12/21/2020 Encounter Details Date Type Department Care Team Description 12/21/2020 External Outreach Department of [facility] Shaan Magallon Contact With And Medicine, [facility] Tamara Tesfaye (Suspected) Exposure Building, in [address] [facility] [address] [facility] [phone] [place] [phone] (Work) [phone] Social History Tobacco Use Types Packs/Day Years [...] week 03/05/2021 How often do you attend tenriism or restoration services? Never 03/05/2021 Do you belong to any clubs or organizations such as tenriism N o 03/05/2021 groups, unions, fraternal or [...] place to sleep or slept in a fpc (including now)? Education Answer Date Recorded What is the highest level of school Master's degree (e.g., M A, MS, 01/30/2019 you have completed or the highest Rani, MEd, COMMERCIAL LENDING VICE PRESIDENT, MARLEN) degree you have received? Sex Assigned at Date Recorded Female 01/16/2018 3:45 PM CDT documented as of this encounter Progress Notes Kayla Matta R.N. - 12/21/2020 9:47 AM CDT Encounter created for symptomatic infectious disease screening with possible COVID, Influenza, RSV, and/or Group A Strep testing. documented in this encounter Miscellaneous Notes Result Encounter Note - Kelsy Gamble R.N. - 12/22/2020 7:54 AM CDT The patient will be contacted if they are eligible for Monoclonal Antibody Infusion (MASS 1 or greater) and/or Remote Patient Monitoring (MASS 3 or greater). The [facility] Covid Care Team (CCT) sends general guidance about COVID-19 to all patients by letter or portal, except when a patient is hospitalized or resides in a snf. [facility] will call all adult patients at highest risk for severe complications of COVID-19 (MASS 3 or greater), those without an online services account, and those who require an textile cutting machine operator. Any patient with a MASS score 1 or greater or a COVID-19 score 1 or greater may be at higher risk ofsevere disease. These patients will follow up directly with primary care. The primary care team willdecide if the patient needs a phone call or a follow up portal message to assess symptom severity, provide individualized guidance on symptom monitoring or symptom management, or to reinforce when to se ek care. [facility] encourages patients to follow up with their PCP with questions, worsening symptoms, or for symptom management. For questions, contact the [facility] Care Team ([facility]): Pager: [phone] In basket: P RST/[facility] COVID-19 POSITIVE Covid Care e-consult Components of the Monoclonal Antibody Selection Score (MASS) Compromised Immune System/Transplant = 4 points Chronic Kidney Disease on Dialysis = 4 points Age greater than or equal to 55 and chronic pulmonary disease = 3 points Age greater than or equal to 65 = 2 points Age greater than or equal to = 2 points Diabetes = 2 points Age greater than or equal to 55 AND cardiovascular disease = 2 points Age greater than or equal to 55 and hypertension = 1 point NOTE: At the time of testing, patients are instructed to obtain the result by calling the [employer] result line or by checking the online services account. documented in this encounter Plan of Treatment Not on filedocumented as of this encounter Procedures Procedure Name Priority Date/Time Associated Diagnosis Comme nts SARS CORONAVIRUS-2 Routine 12/21/2020 11:26 AM Contact With An d Results for this RNA, V CDT (Suspected) Exposure procedu re are in To COVID-19 the results section. documented in this encounter Results (ABNORMAL) SARS Coronavirus-2 RNA, V Symptomatic (12/21/2020 11:26 AM CDT) [facility] Method Time Signature SARS-CoV-2 Swab, 12/22/2020 MKTO Specimen Nasopharynx 2:03 AM CDT Source SARS CoV-2 Detected (A) Undetected 12/22/2020 MKTO RNA, TMA 2:03 AM CDT Comment: SARS-CoV-2 RNA present. ----ADDITIONAL INFORMATION---- This molecular amplification test was pe rformed using the Aptima SARS-CoV-2 assay ([employer] on the [place] [employer] tem under emergency use authorization (EUA) by the U.S. Food and Drug Administ ration. Fact sheets for this EUA assay can be fo und at the following links: For Healthcare Providers: https://www.fd a.gov/media/337715/download For Patients: https://www.fda.gov/media/ 557206/download Specimen Anatomical Collection Method Collection Time Receive d Time (Source) Location / / Volume Laterality Varies 12/21/2020 11:26 12/21/2020 4:37 (Nasopharynx) AM CDT PM CDT Shaan Magallon D.O. LAB MICROBIOLOGY - GENERAL O RDERABLES Performing Organization Address City/State/[facility] Phon e Number [address] [place] [address] System [address] documented in this encounter Visit Diagnoses Diagnosis Contact With And (Suspected) Exposure To COVID-19 - Primary documented in this encounter Additional Health Concerns Infection Onset Date Last Indicated Resolved Time COVID19 Pending 12/21/2020 12/21/2020 12/22/2020 2:03 AM CDT Assessment Noted Time PHQ-9 Depression Total Score: 8 06/24/2020 6:13 PM PAINTER CHASSIS documented as of this encounter Care Teams Tongue Trimmer Relationship Specialty Start Date End Date Domonique Jones APRN, C.N.P., D.N.P. PCP - General 10/19/16 [address] [place] [id number] documented as of this encounter
--- OUTSIDE RECORDS SUMMARY | 2021-12-14 01:28 | XMS_ITS | Encounter Summary ---
:1990 Author Organization [facility] Address [address] [place] [address] Care Team Providers Name Role Phone Domonique Jones APRN, C.N.P., D.N.P. Primary Care Provider Encounter Details Date Type Department Care Team Description 03/25/2021 Hospital Encounter Department of Juan Donnelly For Laboratory Medicine Bryan Tesfaye Supervision Of in [place], [address] [facility] [place] [address] [address] Unspecified [place] [phone] Trimester [id number] (Work) [phone] Social History Tobacco Use Types Packs/Day Years [...] week 03/05/2021 How often do you attend congregation or protestant services? Never 03/05/2021 Do you belong to any clubs or organizations such as congregation N o 03/05/2021 groups, unions, fraternal or [...] place to sleep or slept in a halfway (including now)? Education Answer Date Recorded What is the highest level of school Master's degree (e.g., Candice Nieves, MS, 01/30/2019 you have completed or the highest Rani, MEd, FLATWORK PRESSER, MARLEN) degree you have received? Sex Assigned at Date Recorded Female 01/16/2018 3:45 PM CDT documented as of this encounter Medications at Time of Discharge Medication Sig Dispensed Refills Start Date End Date calcium Take 1 tablet by mouth 0 carbonate-vitamin D3 daily with breakfast. (Calcium 500 + D) 1,250 mg (500 mg calcium)-5 mcg (200 Unit) per tablet [id number] Take by mouth. 0 [id number] ORAL UNABLE TO FIND Patient uses shakeology 0 documented as of this encounter Miscellaneous Notes Result Encounter Note - Juan Donnelly M.D. - 03/28/2021 5:43 PM WEAVE ROOM SUPERVISOR Dear Claudia, Your recent lab/testing results show the following: You tested negative for syphilis, HIV, and Hepatitis B. You are immune to rubella, which means your MMR shot as a child was effective. Juan Donnelly MD E ROOM SUPERVISOR Result Encounter Note - Juan Donnelly M.D. - 03/26/2021 11:14 AM WEAVE ROOM SUPERVISOR Dear Claudia, Your recent lab/testing results show the following: Your blood type is O positive. Your urine shows no infection and your blood counts are as expected for . The rest of the labs are still pending. Juan Donnelly MD E ROOM SUPERVISOR documented in this encounter Plan of Treatment Not on filedocumented as of this encounter Procedures Procedure Name Priority Date/Time Associated Diagnosis Comme nts HIV-1/-2 AG AND AB Routine 03/25/2021 3:58 PM Encounter For Re sults for this SCRN, WEAVE ROOM SUPERVISOR Supervision Of procedure a re in PLASMA Normal First the results section. Unspecified Trimester SYPHILIS TOTAL AB Routine 03/25/2021 3:58 PM Encounter For Res ults for this W/ REFLEX S WEAVE ROOM SUPERVISOR Supervision Of procedure are in Normal First the results section. Unspecified Trimester HBS ANTIGEN Routine 03/25/2021 3:58 PM Encounter For Results for this , S WEAVE ROOM SUPERVISOR Supervision Of procedure are in Normal First the results section. Unspecified Trimester ABORH, RBC Routine 03/25/2021 3:58 PM Encounter For Results for this WEAVE ROOM SUPERVISOR Supervision Of procedure are in Normal First the results section. Unspecified Trimester RUBELLA ANTIBODIES, Routine 03/25/2021 3:58 PM Encounter For R esults for this IGG WEAVE ROOM SUPERVISOR Supervision Of procedure are in Normal First the results section. Unspecified Trimester CBC WITHOUT Routine 03/25/2021 3:58 PM Encounter For Results for this DIFFERENTIAL, B WEAVE ROOM SUPERVISOR Supervision Of procedure are in Normal First the results section. Unspecified Trimester ANTIBODY SCREEN, B Routine 03/25/2021 3:58 PM Encounter For Re sults for this WEAVE ROOM SUPERVISOR Supervision Of procedure are in Normal First the results section. Unspecified Trimester documented in this encounter Results Syphilis Total Ab w/ Reflex, Serum (03/25/2021 3:58 PM WEAVE ROOM SUPERVISOR) [facility] Method Time Signature Syphilis Nonreactive Nonreactive 03/28/2021 [facility] Total Ab w/ 2:53 PM WEAVE ROOM SUPERVISOR Reflex Comment: No serologic evidence of infection with T. pallidum (syphilis). ??Repeat testing may be cons idered in patients with suspected acute or primary syphilis in 2-4 weeks. For additional information on interpreta tion of the syphilis reverse algorithm and resul ts, see: [email or web address]-[email or web address].[email or web address] df Specimen Anatomical Collection Method Collection Time Receive d Time (Source) Location / / Volume Laterality Blood (Blood, 03/25/2021 3:58 PM 03/26/20 3:22 Venous) WEAVE ROOM SUPERVISOR PM WEAVE ROOM SUPERVISOR Juan Donnelly M.D. LAB BLOOD ADD-ON Performing Organization Address [facility] Phon e Number [phone] [place] [address] System [address] Rubella Antibodies, IgG (03/25/2021 3:58 PM WEAVE ROOM SUPERVISOR) athologist Signature Rubella Ab, Positive 03/28/2021 [facility] IgG, S 2:53 PM WEAVE ROOM SUPERVISOR Comment: Results suggest response to immunization or prior exposure to the virus. ----REFERENCE VALUE---- Vaccinated: Positive (>=1.0 AI) Unvaccinated: Negative (<=0.7 AI) Rubella IgG Antibody Index 2.9 03/28/2021 2: 53 PM WEAVE ROOM SUPERVISOR [facility] Specimen Anatomical Collection Method Collection Time Receive d Time (Source) Location / / Volume Laterality Blood (Blood, 03/25/2021 3:58 PM 03/26/20 3:22 Venous) WEAVE ROOM SUPERVISOR PM WEAVE ROOM SUPERVISOR Juan Donnelly M.D. LAB MICROBIOLOGY - BLOOD ORD ERABLES Performing Organization Address [facility] Phon e Number [phone] [place] [address] System [address] HIV-1/-2 Ag and Ab Scrn, Plasma (03/25/2021 3:58 PM WEAVE ROOM SUPERVISOR) athologist Signature HIV Ag/Ab Negative Negative 03/28/2021 [facility] Scrn, 2:53 PM WEAVE ROOM SUPERVISOR P Comment: Negative result does not rule out HIV in fection. If exposure to HIV infection occurred <14 d ays ago, contact the laboratory to request additi on of HIV-1 RNA detection / quantification test. HIV-1 p24 Ag Scrn, P Negative Negative 03/28/2021 2:53 PM WEAVE ROOM SUPERVISOR [facility] Comment: Negative result does not rule out HIV in fection. If exposure to HIV infection occurred <14 d ays ago, contact the laboratory to request additi on of HIV-1 RNA detection / quantification test. HIV-1 Ab Scrn, P Negative Negative 03/28/2021 2:5 3 PM WEAVE ROOM SUPERVISOR [facility] Comment: Negative result does not rule out HIV in fection. If exposure to HIV infection occurred <14 d ays ago, contact the laboratory to request additi on of HIV-1 RNA detection / quantification test. HIV-2 Ab Scrn, P Negative Negative 03/28/2021 2:5 3 PM WEAVE ROOM SUPERVISOR [facility] Comment: Negative result does not rule out HIV in fection. If exposure to HIV infection occurred <14 d ays ago, contact the laboratory to request additi on of HIV-1 RNA detection / quantification test. Specimen Anatomical Collection Method Collection Time Receive d Time (Source) Location / / Volume Laterality Blood (Blood, 03/25/2021 3:58 PM 03/26/20 3:22 Venous) WEAVE ROOM SUPERVISOR PM WEAVE ROOM SUPERVISOR Juan Donnelly M.D. LAB MICROBIOLOGY - BLOOD ORD ERABLES Performing Organization Address City/State/[facility] Phon e Number [facility]- [address] [place] [address] [phone] [place] [address] System [address] HBs Antigen , Serum (03/25/2021 3:58 PM WEAVE ROOM SUPERVISOR) athologist Signature HBs Antigen Negative Negative 03/26/2021 [facility] , S 11:43 AM WEAVE ROOM SUPERVISOR Specimen Anatomical Collection Method Collection Time Receive d Time (Source) Location / / Volume Laterality Blood (Blood, 03/25/2021 3:58 PM 03/26/20 21 7:30 Venous) WEAVE ROOM SUPERVISOR AM WEAVE ROOM SUPERVISOR Juan Donnelly M.D. LAB MICROBIOLOGY - BLOOD ORD ERABLES Performing Organization Address City/State/ZIP Code Phon e Number [facility] [address] [facility] [facility] [place] [address] Laboratory Medicine and Pathology [address] PATHAK (ABNORMAL) CBC without Differential (03/25/2021 3:58 PM WEAVE ROOM SUPERVISOR) [facility] Method Time Signature Hemoglobin 14.6 11.6 - 03/25/2021 [place] 15.0 g/dL 4:07 PM WEAVE ROOM SUPERVISOR Hematocrit 42.8 35.5 - 03/25/2021 [place] 44.9 % 4:07 PM WEAVE ROOM SUPERVISOR Erythrocytes 4.66 3.92 - 03/25/2021 [place] 5.13 4:07 PM WEAVE ROOM SUPERVISOR x10(12)/L MCV 91.8 78.2 - 03/25/2021 [facility] 97.9 fL 4:07 PM WEAVE ROOM SUPERVISOR RBC Distrib Width 12.4 12.2 - 03/25/2021 [facility] 16.1 % 4:07 PM WEAVE ROOM SUPERVISOR Platelet Count 291 157 - 371 03/25/2021 [facility] x10(9)/L 4:07 PM WEAVE ROOM SUPERVISOR Leukocytes 13.6 (H) 3.4 - 9.6 03/25/2021 [place] x10(9)/L 4:07 PM WEAVE ROOM SUPERVISOR Specimen Anatomical Collection Method Collection Time Receive d Time (Source) Location / / Volume Laterality Blood (Blood, 03/25/2021 3:58 PM 03/25/20 4:01 Venous) WEAVE ROOM SUPERVISOR PM WEAVE ROOM SUPERVISOR Juan Donnelly M.D. LAB BLOOD ADD-ON Performing Organization Address City/State/ZIP Code Phon e Number [facility]- [address] [place] [address] [facility] [place] [address] System in [place] [address] Antibody Screen, RBC (with reflex Antibody ID) (03/25/2021 3:58 PM WEAVE ROOM SUPERVISOR) [facility] Signature Antibody Screen NEG 03/26/2021 [facility] 8:24 AM WEAVE ROOM SUPERVISOR Specimen Anatomical Collection Method Collection Time Receive d Time (Source) Location / / Volume Laterality Blood (Blood, 03/25/2021 3:58 PM 03/25/20 Venous) WEAVE ROOM SUPERVISOR 10:42 PM WEAVE ROOM SUPERVISOR Juan Donnelly M.D. LAB BLOOD BANK TEST ORDERABL ES Performing Organization Address City/[facility]/ZIP Code Phon e Number [facility]- [address] [place] [address] [facility] [place] [address] [facility] [address] ABORh, RBC (03/25/2021 3:58 PM WEAVE ROOM SUPERVISOR) P athologist Signature ABO Group O 03/26/2021 8:24 [place] AM WEAVE ROOM SUPERVISOR Rh Type POS 03/26/2021 8:24 AUST AM WEAVE ROOM SUPERVISOR Specimen Anatomical Collection Method Collection Time Receive d Time (Source) Location / / Volume Laterality Blood (Blood, 03/25/2021 3:58 PM 03/25/20 21 Venous) WEAVE ROOM SUPERVISOR 10:42 PM WEAVE ROOM SUPERVISOR Juan Donnelly M.D. LAB BLOOD BANK TEST ORDERABL ES Performing Organization Address City/State/ZIP Code Phon e Number [facility]- [address] [place] [address] [facility] [place], [place] [address] [place] [address] documented in this encounter Visit Diagnoses Diagnosis Encounter For Supervision Of Normal Firs t Unspecified Trimester (HCC) documented in this encounter Additional Health Concerns Assessment Noted Time PHQ-9 Depression Total Score: 5 03/09/2021 4:24 PM CDT documented as of this encounter Care Teams Technical Publications Manager Relationship Specialty Start Date End Date Domonique Jones APRN, C.N.P., D.N.P. PCP - General 10/19/16 [address] [place] [address] documented as of this encounter
--- OUTSIDE RECORDS SUMMARY | 2021-12-14 01:28 | XMS_ITS | Encounter Summary ---
:1990 Author Organization [facility] Address [address] [place] [address] Care Team Providers Name Role Phone Domonique Jones APRN, C.N.PSymone, D.N.P. Primary Care Provider Encounter Details Date Type Department Care Team Description 03/04/2021 Hospital Encounter Department of Juan Donnelly [facility] Laboratory Medicine Bryan Tesfaye in [place], [address] [place], [place] [address] [address] [place], [place] [phone] [address] (Work) [phone] Social History Tobacco Use Types Packs/Day Years [...] week 03/05/2021 How often do you attend rastafari or jain services? Never 03/05/2021 Do you belong to any clubs or organizations such as rastafari N o 03/05/2021 groups, unions, fraternal or [...] have completed or the highest Rani, MEd, COMMUNITY LEADER, MARLEN) degree you have received? Sex Assigned at Date Recorded Female 01/16/2018 3:45 PM CDT documented as of this encounter Medications at Time of Discharge Medication Sig Dispensed Refills Start Date End Date [id number] Take by mouth. 0 [id number] ORAL UNABLE TO FIND Patient uses 0 [...] mouth daily. documented as of this encounter Miscellaneous Notes Result Encounter Note - Juan Donnelly M.D. - 03/07/2021 8:46 AM CDT Dear Claudia, Your recent lab/testing results show the following: Your blood test is positive. So this is great news. Your recent home test was a false negative. Have a great day! Juan Donnelly M.D. documented in this encounter Plan of Treatment Not on filedocumented as of this encounter Procedures Procedure Name Priority Date/Time Associated Comments Diagnosis HUMAN CHORIONIC Routine 03/04/2021 3:25 PM Threatened Results for this GONADOTROPIN (HCG), CDT procedur e are in [facility], the results section. documented in this encounter Results (ABNORMAL) hCG (Human Chorionic Gonadotropin), Quantitative, (03/04/2021 3:25 PM CDT) Analysis Performed At Patho logist Time Signature HCG, [address] (H) <5 IU/L 03/04/2021 [facility] Quantitative, 6:58 PM CDT , P Comment: Biotin has been identified by the markos candelario as a potential interfering substance. ??Higher concentr ations of biotin may be found in multivitamins, hair/nail supple ments, and workout supplements. ??If the result does not ma tc clinical observations, repeat testing after patient refrains fr om the use of supplements for at least 12 hours. Specimen Anatomical Collection Method Collection Time Receive d Time (Source) Location / / Volume Laterality Blood (Blood, 03/04/2021 3:25 PM 03/04/20 21 5:58 Venous) CDT PM CDT Juan Donnelly M.D. LAB BLOOD ADD-ON Performing Organization Address City/State/ZIP Code Phon e Number [facility]- [address] [place] [address] [facility] [place] [address] System in [place] [address] documented in this encounter Visit Diagnoses Diagnosis Threatened (HCC) documented in this encounter Additional Health Concerns Assessment Noted Time PHQ-9 Depression Total Score: 8 06/24/2020 6:13 PM BANDING MACHINE OPERATOR documented as of this encounter Care Teams Steam Setter Relationship Specialty Start Date End Date Domonique Jones APRN, C.N.P., D.N.P. PCP - General 10/19/16 [address] [phone] documented as of this encounter
--- OUTSIDE RECORDS SUMMARY | 2021-12-14 01:28 | XMS_ITS | Encounter Summary ---
:1990 Author Organization [facility] Address [address] [place] [address] Care Team Providers Name Role Phone Domonique Jones APRN, C.N.P., D.N.P. Primary Care Provider Reason for Visit Reason Comments Sinus Symptoms sinus pressurev6 days, drain age, COVID pending Cough 3 days Fever on and off 4 days, 100.1 hig hest Sun per patient, chills Appointment Request (Routine) - Closed Specialty Diagnoses / Procedures Referred By Contact Refer red To Contact Family Medicine Referral ID Status Reason Start Date Expiration Date Visits Requ ested Visits Authorized [id number] Closed 12/21/2020 12/21/2021 1 1 Encounter Details Date Type Department Care Team Description 12/21/2020 Office Visit Department of Family Alejandro Sinusit is Acute (Primary Dx); Medicine, [place], in [place] [address] [facility] [place] [phone] Social History Tobacco Use Types Packs/Day Years [...] How often do you attend christian or lutheran services? Never 03/05/2021 Do you belong to [...] place to sleep or slept in a fci (including now)? Education Answer Date Recorded What is the highest level of school Master's degree (e.g., M Ezequiel, MS, 01/30/2019 you have completed or the highest Rain, MEd, [employer] TECHNICAL LEAD SENIOR DEVELOPER, MARLEN) degree you have received? Sex Assigned at Date Recorded Female 01/16/2018 3:45 PM CDT documented as of this encounter Last Filed Vital Signs Vital Sign Reading Time Taken Comments Blood Pressure 110/64 12/21/2020 11:44 AM CDT Pulse 70 12/21/2020 11:44 AM CDT Temperature 36.1 ??C (97 ??F) 12/21/2020 11:44 AM CDT Respiratory Rate 16 12/21/2020 11:44 AM CDT Oxygen Saturation 100% 12/21/2020 11:44 AM CDT Inhaled Oxygen Concentration - - Weight 58 kg (127 lb 13.9 oz) 12/21/2020 11:44 AM CDT Height - - Body Mass Index 18.94 01/30/2019 3:54 PM CDT documented in this encounter Progress Notes Rafiq Allen P.A.-C. - 12/21/2020 12:00 PM CDT SUBJECTIVE CHIEF COMPLAINT / REASON FOR VISIT Claudia Maradiaga is a 30 y.o. female who presents for evaluation of Sinus Symptoms (sinus pressurev6 days, drainage, COVID pending), Cough (3 days), and Fever (on and off 4 days, 100.1 highest Sun per patient, chills). HISTORY OF PRESENT ILLNESS Patient states that She has been feeling ill for 1 week(s). she describes her symptoms as following: nasal congestion, purulent rhinorrhea, cough, sore throat, facial pain Known exposure: none pertinent. The sinus pain has been Moderate and located bilateral maxillary. The following portions of the patient's history were reviewed and updated as appropriate: allergies,current medications, family history, medical history, social history, surgical history and problem list. Brief Review of Systems: A brief review of systems was negative except for that mentioned in the history of present of illness. Current Outpatient Medications Medication Sig ??? calcium carbonate (TUMS) 500 mg (200 mg calcium) chewable tablet Chew 1 tablet as needed for indigestion or heartburn. ??? pimecrolimus (ELIDEL) 1 % cream Apply 1 application topically 2 (two) times a day. Patient stated she uses as needed ??? [id number] TDSY-ENVBI-LKA ORAL Take by mouth. ??? UNABLE TO FIND Patient uses shakeology ??? cefUROXime (CEFTIN) 500 mg tablet Take 1 tablet (500 mg total) by mouth every 12 (twelve) hours for 10 days. ??? famotidine (PEPCID) 20 mg tablet Take 1 tablet (20 mg total) by mouth 2 (two) times a day. (Patient not taking: Reported on 12/21/2020 ) ??? magnesium hydroxide (MILK OF MAGNESIA) 2,400 mg/10 mL suspension Take 10 mL by mouth as needed. ??? omeprazole (PriLOSEC) [address] capsule Take 1 capsule (40 mg total) by mouth daily. (Patient nottaking: Reported on 12/21/2020 ) ??? sertraline (ZOLOFT) 50 mg tablet Take 1 tablet (50 mg total) by mouth daily. (Patient not taking: Reported on 12/21/2020 ) Allergies Allergen Reactions ??? Alum-Mag Hydroxide-Simeth Rash ??? Aluminum-Magnesium Hydroxide Hives ??? Amoxicillin Rash and GI intolerance rash nausea ??? Azithromycin Rash ??? Lidocaine Rash and Hives OBJECTIVE PHYSICAL EXAM BP 110/64 (BP Location: Right arm, Patient Position: Sitting, Cuff Size: Regular) Pulse 70 Temp 36.1 ??C (Temporal) Resp 16 Wt 58 kg LMP 12/03/2020 SpO2 100% No BMI 18.94 kg/m?? Body mass index is 18.94 kg/m??. GENERAL: this patient is alert and awake in no acute distress, comfortable and cooperative, respondsappropriately to auditory and visual stimmuli HEENT: Sinus/Nose: purulent discharge, moderate congestion, sinus tenderness bilateral, supple and moderate anterior cervical adenopathy bilaterally, PERRLA, Tonsils / Pharynx: mucosa normal, tonsils normal bilaterally, pharynx inflamed, cobblestoned; Ears: R TM - normal landmarks and mobility withoutsignificant erythema or bulging, no tragus or pinnae tenderness L TM - normal landmarks and mobilitywithout significant erythema or bulging, no tragus or pinnae tenderness LUNGS: CTA, no wheezing/rales or rhonchi SKIN: normal color, temperature and moisture, no rashes or lesions are noted ASSESSMENT/PLAN: Diagnosis Plan 1. Sinusitis Acute cefUROXime (CEFTIN) 500 mg tablet 2. Cough COVID-19 infection testing advised. Stay isolated until results are reported and are negative. Patient was advised to stay hydrated and rested. she was advised to consider steamy showers, rest, heat to the sinuses. OTC pain relief with acetaminophen and ibuprofen/naproxen was recommended. Followup in 2-3 days was advised with primary care provider if not better. Advised Patient about possible side effects of the prescribed/recommended medication(s). Rafiq Allen P.A.-C. documented in this encounter Plan of Treatment Not on filedocumented as of this encounter Visit Diagnoses Diagnosis Sinusitis Acute - Primary Cough Unspecified Type documented in this encounter Additional Health Concerns Infection Onset Date Last Indicated Resolved Time COVID19 Pending 12/21/2020 12/21/2020 12/22/2020 2:03 AM CDT Assessment Noted Time PHQ-9 Depression Total Score: 8 06/24/2020 6:13 PM SEWER HEAD documented as of this encounter Care Teams Body Shop Technician Relationship Specialty Start Date End Date Domonique Jones APRN, C.N.P., D.N.P. PCP - General 10/19/[address] [phone] documented as of this encounter
--- OUTSIDE RECORDS SUMMARY | 2021-12-14 01:28 | XMS_ITS | Encounter Summary ---
:1990 Author Organization [facility] Address [address] [place] [address] Care Team Providers Name Role Phone Domonique Jones APRN C.N.PSymone, D.N.P. Primary Care Provider Reason for Referral Specialty Diagnoses / Procedures Referred By Contact Refer red To Contact Domonique Jones APRN C.N.PGREER [place] Vanessa D.N.PSymone [address] [place] [address] Referral ID Status Reason Start Date Expiration Date Visits Requ ested Visits Authorized Outpatient (Routine) - Closed Specialty Diagnoses / Procedures Referred By Contact Refer red To Contact Family Medicine Diagnoses Examination Test With Positive Result (HCC) Juan Donnelly [facility] [place] [facility] M.D. [address], [place] [address] Referral ID Status Reason Start Date Expiration Date Visits Requ ested Visits Authorized [id number] Closed 02/23/2021 02/23/2022 1 1 Reason for Visit Reason Comments Possible Encounter Details Date Type Department Care Team Description 02/21/2021 Clinical Communication Department of [facility], Domonique Guerrero APRN, [facility], in C.N.P., D.N. P. [place], [place] [address] [place], [place] [phone] Social History Tobacco Use Types Packs/Day Years [...] How often do you attend tenriism or pentecostalism services? Never 03/05/2021 Do you belong to [...] place to sleep or slept in a detention (including now)? Education Answer Date Recorded What is the highest level of school Master's degree (e.g., M A, MS, 01/30/2019 you have completed or the highest Rani, MEd, BIOFUELS OPERATIONS MANAGER, MARLEN) degree you have received? Sex Assigned at Date Recorded Female 01/16/2018 3:45 PM CDT documented as of this encounter Miscellaneous Notes Telephone Encounter - Mckenzie Reyes - 03/03/2021 9:04 AM CDT Reason for Communication: Patient calling in and states that she took a home test this morning and it came back negative, but she also took a HCG Test and that showed 2 lines as positive. Patient is wondering if Dr. Donnelly would be able to order a test blood draw to put her at ease until her US appt on March 21 . Please advise. Current or [phone] (work) Can Nursing/Provider leave a detailed message?: n/a Did the patient refuse triage through Nurse line? (for symptom based concerns): n/a Action Needed: Call back Name of Medication (if relevant): n/a Please send all scheduling replies to scheduling pool. Telephone Encounter - Shari Villasenor RJaguar - 02/23/2021 3:12 PM CDT Reason for call: initiate care History: LMP: 01/23/2021- trying to conceive for 4 years Gestational Age: 4+3 weeks MICHELLE: 10/30/2021 : 1 Para: 0 Miscarriage: 0 Termination: 0 Stillbirth: 0 Delivery History: NA Assessment: Any symptoms or concerns? Feels well at this time, no concerns. Have you had any of the following? Previous tubal ? Denies Diabetes or diabetes in ? NA High blood pressure or high blood pressure in ? NA Previous blood clots? Denies Any kidney or liver disease? Denies Any heart problems? 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 Denies Chronic Illness (PCOS, Thyroid, Hyperlipidemia): Denies Any blood transfusions or organ transplant prior to 12/1991? Denies Medications: PNV Seasonal Flu Shot: Denies, plans to get it COVID vaccine: Denies Tobacco Use: Denies PLAN NOB packet sent. Bleeding/pain precautions discussed and to notify clinic during office hours and EDafter hours. Encouraged to call with questions or concerns. Disposition/Recommendation: protocol orders for OW NOB appts. DOS will call to schedule OB EDU, dating US on 03/21 or after and NOB with Dr. Donnelly. Information/Education: patient/caller able to teach back Caller agreeable to plan of care: yes The following references were used: Nursing clinical judgement Telephone Encounter - Shari Villasenor R.N. - 02/23/2021 1:32 PM CDT Spoke with patient and she requested a call back after 2:30 pm. Telephone Encounter - Barbara Maldonado L.PSymoneNSymone - 02/22/2021 11:29 AM CDT Please schedule patient with Taylor Green thank you Telephone Encounter - Kalyn Iglesias - 02/21/2021 12:45 PM CDT Reason for Communication: Patient had positive home test. Please call to schedule. LMP: 01/23/2021 Current Can Nursing/Provider leave a detailed message?: Did the patient refuse triage through Nurse line? (for symptom based concerns): Action Needed: Please call to schedule Name of Medication (if relevant): Please send all scheduling replies to scheduling pool. documented in this encounter Plan of Treatment Scheduled Referrals Name Type Priority Associated Diagnoses Order S [facility] - Outpatient Referral Routine Exp ected: Obstetrics consult Examination Test 02/23 (clinic) With Positive Result (Approx imate), Expires: 02/24/2024 Obstetrics and Outpatient Referral Routine Expect ed: Gynecology - OB Examination Test 02/24/20 21 education visit With Positive Result (Tanya idris), (clinic) Expires: 02/24/2024 documented as of this encounter Results US OB First Trimester (03/21/2021 3:40 PM CURRICULUM AND INSTRUCTION SPECIALIST) Anatomical Region Laterality Modality Body, Ultrasound OB RST LOS, Ultrasound ARZ LOS N/A Ultrasound Specimen (Source) Anatomical Collection Method Collection Time Re ceived Time Location / / Volume Laterality 03/21/2021 4:37 PM CURRICULUM AND INSTRUCTION SPECIALIST Impressions 03/21/2021 4:38 PM CURRICULUM AND INSTRUCTION SPECIALIST Single, viable, intrauterine gestation with MICHELLE of [...] sound dating is allowed before changing MICHELLE. [facility] in [place] MIX CRUSHER OPERATOR Dept. [phone] Narrative 03/21/2021 4:38 PM CURRICULUM AND INSTRUCTION SPECIALIST First Trimester Ultrasound EXAM: ??Confirmation of HEALTH CARE PROVIDER: ??Dr. Donnelly COMPARISON: ??None prior RELEVANT CLINICAL INFORMATION/INDICATION : Confirm dates and viability Estimated Date of Delivery (MICHELLE) by LMP: ??October 30, 2021. FINDINGS: Gestational Sac: Present Yolk Sac: Present heart rate: ??174 beats per minute . Embryo: Present [place] Rump Length: ??20.4 mm. Age and MICHELLE [...] rate: 174 beats per minute. Embryo: Present [place] Rump Length: 20.4 mm. Age and MICHELLE [...] sound dating is allowed before changing MICHELLE. [facility] in [place] MIX CRUSHER OPERATOR Dept. [phone] Juan Donnelly M.D. IMMoe OB US PROCEDURES documented in this encounter Visit Diagnoses Diagnosis Examination Test With Positive Result (HCC) - Primary Examination Test With Positive Result (HCC) documented in this encounter Additional Health Concerns Infection Onset Date Last Indicated Resolved Time COVID19 Pending 03/11/2021 03/11/2021 03/12/2021 2:11 AM CDT COVID19 Pending 03/24/2021 03/24/2021 03/24/2021 9:12 PM CURRICULUM AND INSTRUCTION SPECIALIST Assessment Noted Time PHQ-9 Depression Total Score: 8 06/24/2020 6:13 PM CURRICULUM AND INSTRUCTION SPECIALIST documented as of this encounter Care Teams Chronometer Assembler Relationship Specialty Start Date End Date Domonique Jones APRN, C.N.P., D.N.P. PCP - General 10/19/16 [address] [place] [address] documented as of this encounter
--- OUTSIDE RECORDS SUMMARY | 2021-12-14 01:28 | XMS_ITS | Encounter Summary ---
:1990 Author Organization [facility] Address [address] [place] [address] Care Team Providers Name Role Phone Domonique Jones APRN, C.N.P., D.N.P. Primary Care Provider Encounter Details Date Type Department Care Team Description 03/25/2021 Hospital Encounter Department of Juan Donnelly For Laboratory Medicine Bryan Tesfaye Supervision Of in [place], [address] [facility] [place] [address] [address] Unspecified OPAL [place] [phone] Trimester [id number] (Work) [phone] Social History Tobacco Use Types Packs/Day Years [...] How often do you attend rastafari or hindu services? Never 03/05/2021 Do you [...] have completed or the highest Rani, MEd, INSURANCE RISK MANAGER, MARLEN) degree you have received? Sex Assigned at Date Recorded Female 01/16/2018 3:45 PM CDT documented as of this encounter Medications at Time of Discharge Medication Sig Dispensed Refills Start Date End Date calcium Take 1 tablet by mouth 0 carbonate-vitamin D3 daily with breakfast. (Calcium 500 + D) 1,250 mg (500 mg calcium)-5 mcg (200 Unit) per tablet [id number] Take by mouth. 0 [id number] ORAL UNABLE TO FIND Patient uses shakeology 0 documented as of this encounter Miscellaneous Notes Result Encounter Note - Juan Donnelly M.D. - 03/28/2021 5:39 PM BONDING SUPERVISOR Dear Claudia, The urine test appeared all normal. No infections. Juan Donnelly M.D. ING SUPERVISOR documented in this encounter Plan of Treatment Not on filedocumented as of this encounter Procedures Procedure Name Priority Date/Time Associated Diagnosis Comme nts URINALYSIS WITH Routine 03/25/2021 4:00 PM Encounter For Resul ts for this MICROSCOPIC IF BONDING SUPERVISOR Supervision Of procedure a re in INDICATED, U Normal First the results section. Unspecified Trimester BACTERIAL CULTURE, Routine 03/25/2021 4:00 PM Encounter For Re sults for this AEROBIC + SUSC, BONDING SUPERVISOR Supervision Of procedure are in URINE Normal First the results section. Unspecified Trimester documented in this encounter Results Bacterial Culture, Aerobic + Susc, Urine (03/25/2021 4:00 PM BONDING SUPERVISOR) Patholo gist Method Time Signature Urine Culture No growth 03/26/2021 MKTO after 1 day 4:28 PM BONDING SUPERVISOR of incubation. Specimen Anatomical Collection Method Collection Time Receive d Time (Source) Location / / Volume Laterality Urine (Urine, 03/25/2021 4:00 PM 03/25/20 7:46 Midstream) BONDING SUPERVISOR PM BONDING SUPERVISOR Comment: Specimen Source Site: Urine Juan Donnelly M.D. LAB MICROBIOLOGY - GENERAL O RDERABLES Performing Organization Address City/State/ZIP Code Phon e Number [facility]- [address] [place] [address] [place] [address] [address] Urinalysis with Microscopic if Indicated (03/25/2021 4:00 PM BONDING SUPERVISOR) P athologist Signature Source Urine, 03/25/2021 [place] Urine, Clean 4:04 PM BONDING SUPERVISOR Catch Clarity Clear Clear 03/25/2021 [place] 4:04 PM BONDING SUPERVISOR Color Yellow 03/25/2021 [place] 4:04 PM BONDING SUPERVISOR Comment: ----REFERENCE VALUE---- Colorless Yellow Shadia Blood Negative Negative 03/25/2021 4:04 PM BONDING SUPERVISOR [place] Nitrite Negative Negative 03/25/2021 4:04 PM BONDING SUPERVISOR [place] Leukocyte Esterase Negative Negative 03/25/2021 4:04 PM CS T [place] Protein Negative mg/dL 03/25/2021 4:04 PM BONDING SUPERVISOR [place] Comment: ----REFERENCE VALUE---- Negative Trace Glucose Negative Negative mg/dL 03/25/2021 4:04 PM BONDING SUPERVISOR [place] Ketone Negative Negative mg/dL 03/25/2021 4:04 PM BONDING SUPERVISOR OW AT Bilirubin Negative Negative 03/25/2021 4:04 PM BONDING SUPERVISOR [place] pH 6.0 5.0 - 8.0 03/25/2021 4:04 PM BONDING SUPERVISOR [place] Specific Duson 1.010 1.001 - 1.035 03/25/2021 4:04 PM BONDING SUPERVISOR [place] Urobilinogen 0.2 0.2 - 1.0 mg/dL 03/25/2021 4:04 PM CS T [place] Specimen Anatomical Collection Method Collection Time Receive d Time (Source) Location / / Volume Laterality Urine (Urine, 03/25/2021 4:00 PM 03/25/20 4:00 Clean Catch) BONDING SUPERVISOR PM BONDING SUPERVISOR Juan Donnelly M.D. LAB URINE ORDERABLES Performing Organization Address City/State/ZIP Code Phon e Number [facility]- [address] [place] [address] [place] [address] System in [place] [address] [facility] documented in this encounter Visit Diagnoses Diagnosis Encounter For Supervision Of Normal Firs t Unspecified Trimester (HCC) documented in this encounter Additional Health Concerns Assessment Noted Time PHQ-9 Depression Total Score: 5 03/09/2021 4:24 PM CDT documented as of this encounter Care Teams Abstract Checker Relationship Specialty Start Date End Date Domonique Jones APRN, C.N.P., D.N.P. PCP - General 10/19/[address] [place] [address] documented as of this encounter
--- OUTSIDE RECORDS SUMMARY | 2021-12-14 01:28 | XMS_ITS | Encounter Summary ---
:1990 Author Organization [facility] Address [address] [place] [address] Care Team Providers Name Role Phone Domonique Jonse APRN, C.N.P., D.N.P. Primary Care Provider Reason for Visit Reason Comments COVID Nurse Line Encounter Details Date Type Department Care Team Description 12/28/2020 Nurse Triage Department of [facility] Jennifer Platt RJaguar COVID Nurse Line [address], in [facility] [address] [place] [address] [facility] [phone] Social History Tobacco Use Types Packs/Day Years [...] week 03/05/2021 How often do you attend adventist or christianity services? Never 03/05/2021 Do you belong to any clubs or organizations such as adventist N o 03/05/2021 groups, unions, fraternal or [...] place to sleep or slept in a assisted (including now)? Education Answer Date Recorded What is the highest level of school Master's degree (e.g., M Ezequiel, MS, 01/30/2019 you have completed or the highest Rani, MEd, WATCH ASSEMBLY INSPECTOR, MARLEN) degree you have received? Sex Assigned at Date Recorded Female 01/16/2018 3:45 PM CDT documented as of this encounter Miscellaneous Notes Telephone Encounter - Marti Platt R.N. - 12/28/2020 11:25 AM CDT Chief Complaint / Reason for Call Patient is a 30 y.o. female calling regarding No chief complaint on file.. Assessment Concern: Patient reports headache, sinus congestion, fatigue, and body aches. Symptoms started abouta week ago and she tested positive for COVID on 12/22. She has some shortness of breath at times withexertion, denies shortness of breath at rest. Denies chest pain or heaviness. She is eating and drinking well. Denies nausea, vomiting or diarrhea Present for: 1 week Home cares tried: Tylenol, fluids Calling to request: Home cares The recommended disposition is No disposition on file.. Reason for Disposition ??? [1] COVID-19 diagnosed by positive lab test AND [2] mild symptoms (e.g., cough, fever, others) AND [3] no complications or SOB Protocols used: CORONAVIRUS (COVID-19) DIAGNOSED OR [id number] Care Advice Patient/Caregiver understands and will follow care advice?: Yes, able to teach back GENERAL CARE ADVICE FOR COVID-19 SYMPTOMS: * The treatment is the same whether you have COVID-19, influenza or some other respiratory virus. * Cough: Use cough drops. * Feeling dehydrated: Drink extra liquids. If the air in your home is dry, use a humidifier. * Fever: For fever over 101 F (38.3 C), take acetaminophen every 4 to 6 hours (Adults 650 mg) OR ibuprofen every 6-8 hours (Adults 400 mg). Before taking any medicine, read all the instructions on the package. Do not take aspirin unless your doctor has prescribed it for you. * Muscle aches, headache, and other pains: Often this comes and goes with the fever. Take acetaminophen every 4-6 hours (Adults 650 mg) OR ibuprofen every 6 to 8 hours (Adults 400 mg). Before taking any medicine, read all the instructions on the package. * Sore throat: Try throat lozenges, hard candy or warm chicken broth. COUGH MEDICINES: * OTC COUGH SYRUPS: The most common cough suppressant in OTC cough medications is dextromethorphan. Often the letters 'DM' appear in the name. * OTC COUGH DROPS: Cough drops can help a lot, especially for mild coughs. They reduce coughing by soothing your irritated throat and removing that tickle sensation in the back of the throat. Cough drops also have the advantage of portability - you can carry them with you. * HOME REMEDY - HARD CANDY: Hard candy works just as well as medicine-flavored OTC cough drops. People who have diabetes should use sugar-free candy. * HOME REMEDY - HONEY: This old home remedy has been shown to help decrease coughing at night. The adult dosage is 2 teaspoons (10 ml) at bedtime. Honey should not be given to infants under one year ofage. HUMIDIFIER: * If the air is dry, use a humidifier in the bedroom. * Dry air makes coughs worse. COUGHING SPELLS: * Drink warm fluids. Inhale warm mist. (Reason: both relax the airway and loosen up the phlegm) * Suck on cough drops or hard candy to coat the irritated throat. PAIN AND FEVER MEDICINES: * For pain or fever relief, take either acetaminophen or ibuprofen. * They are sxpu-bqa-eckiuuo (OTC) drugs that help treat both fever and pain. [facility]. * Treat fevers above 101 F (38.3 C). The goal of fever therapy is to bring the fever down to a comfortable level. Remember that fever medicine usually lowers fever 2 degrees F (1 - 1 1/2 degrees C). * ACETAMINOPHEN REGULAR STRENGTH TYLENOL: Take 650 mg (two 325 mg pills) by mouth every 4 to 6 hoursas needed. Each Regular Strength Tylenol pill has 325 mg of acetaminophen. The most you should take each day is 3,250 mg (10 pills a day). * ACETAMINOPHEN - EXTRA STRENGTH TYLENOL: Take 1,000 mg (two 500 mg pills) every 8 hours as needed. Each Extra Strength Tylenol pill has 500 mg of acetaminophen. The most you should take each day is 3,000 mg (6 pills a day). * IBUPROFEN (E.G., MOTRIN, ADVIL): Take 400 mg (two 200 mg pills) by mouth every 6 hours. The most you should take each day is 1,200 mg (six 200 mg pills), unless your doctor has told you to take more. CALL BACK IF: * Fever over 103 F (39.4 C) * Fever lasts over 3 days * Fever returns after being gone for 24 hours * Chest pain or difficulty breathing occurs * You become worse. documented in this encounter Plan of Treatment Not on filedocumented as of this encounter Visit Diagnoses Not on filedocumented in this encounter Additional Health Concerns Infection Onset Date Last Indicated Resolved Time COVID19 12/21/2020 12/21/2020 01/10/2021 4:45 AM CDT Assessment Noted Time PHQ-9 Depression Total Score: 8 06/24/2020 6:13 PM PROJECT DESIGN ENGINEER documented as of this encounter Care Teams Executive Consultant Relationship Specialty Start Date End Date Domonique Jones APRN, C.N.P., D.N.P. PCP - General 10/19/16 [address], [place] [address] documented as of this encounter
--- OUTSIDE RECORDS SUMMARY | 2021-12-14 01:28 | XMS_ITS | Encounter Summary ---
:1990 Author Organization [facility] Address [address] [place] [address] Care Team Providers Name Role Phone Domonique Jones APRN, C.N.P., D.N.P. Primary Care Provider Encounter Details Date Type Department Care Team Description 03/11/2021 Admin Visit Department of Family Medicine, [address] [place] [address] [facility] [phone] Social History Tobacco Use Types Packs/Day Years [...] week 03/05/2021 How often do you attend gnosticism or temple services? Never 03/05/2021 Do you belong to any clubs or organizations such as gnosticism N o 03/05/2021 groups, unions, fraternal or [...] have completed or the highest Rani, MEd, JOB PRESS OPERATOR, MARLEN) degree you have received? Sex Assigned [...] documented as of this encounter Care Teams Blending Technician Relationship Specialty Start Date End Date Domonique Jones APRN, C.N.P., D.N.P. PCP - General 10/19/[address] [address] documented as of this encounter
--- OUTSIDE RECORDS SUMMARY | 2021-12-14 01:28 | XMS_ITS | Encounter Summary ---
:1990 Author Organization [facility] Address [address] [place] [address] Care Team Providers Name Role Phone Domonique Jones APRN, C.N.P., D.N.P. Primary Care Provider Reason for Visit Reason Comments COVID Nurse Line Encounter Details Date Type Department Care Team Description 12/28/2020 Clinical Communication Division of Phoebe Joy Nurse [facility] [place] [address] [facility], in [place], [place] [address] [place] [address] [place], [place] (Work) [phone] Social History Tobacco Use Types Packs/Day Years [...] week 03/05/2021 How often do you attend mandaen or jainism services? Never 03/05/2021 Do you belong to any clubs or organizations such as mandaen N o 03/05/2021 groups, unions, fraternal or [...] place to sleep or slept in a snf (including now)? Education Answer Date Recorded What is the highest level of school Master's degree (e.g., M Slava, MS, 01/30/2019 you have completed or the highest Rani, MEd, VP PUBLIC RELATIONS, MARLEN) degree you have received? Sex Assigned at Date Recorded Female 01/16/2018 3:45 PM CDT documented as of this encounter Miscellaneous Notes Telephone Encounter - Phoebe Joy R.N. - 12/28/2020 11:17 AM CDT COVID-19 Nurse Line Screening ASSESSMENT Region Select appropriate region: : [place] Age Pathway Select approprite pathway: : Adult Have you had close contact* with a person who has a LABORATORY CONFIRMED case of COVID-19 in the past 14 days?: No (Continue Screening) In the last 48 hours, have you had a fever* OR symptoms that are unrelated to a preexisting illness?: New headache, New chills, Fever, New shortness of breath, New loss of smell, New change or loss of taste sensation, New nausea Have you received a COVID-19 vaccine in the last 72 hours? : No vaccine received (Continue Screening) Do you have any of the following urgent symptoms?: No urgent symptoms noted (Continue Screening) Have you tested positive for COVID-19 in the last 45 days?: Yes (Continue Screening) Are ALL the following criteria met: age between 18 to 75 yrs, main symptom is a sore throat with duration of 24 hrs to 7 days, onset of sore throat not associated with new upper respiratory symptoms*? : No, testing not indicated (End Screenig) Symptom Onset Date of symptom onset: 12/19/20 Testing Recommendation Endpoint Is testing recommended? : Transferred to nursing call line PLAN Endpoint recommendation: Transfer to Primary Care Nurseline for further assessment Standard Care Points -Get a COVID -19 vaccine as soon as you can if not fully vaccinated. -Wash hands frequently with soap and water, use hand rfid developer if soap and water aren't available. -Wear [...] lollipops, and throat lozenges are equally effective. Education: Patient/caregiver able to teach back Patient agreeable to plan of care: Yes Caller tested positive for COVID 19 last Sunday12/22/20 and would like to speak with a [facility] triage nurse for further symptom management. The following references were used: CDC web site https://www.cdc.gov/coronavirus/2019-ncov/summary.html Nursing judgement documented in this encounter Plan of Treatment Not on filedocumented as of this encounter Visit Diagnoses Not on filedocumented in this encounter Additional Health Concerns Infection Onset Date Last Indicated Resolved Time COVID19 12/21/2020 12/21/2020 01/10/2021 4:45 AM CDT Assessment Noted Time PHQ-9 Depression Total Score: 8 06/24/2020 6:13 PM SENIOR STRATEGY ANALYST documented as of this encounter Care Teams Chemical Process Equipment Operator Relationship Specialty Start Date End Date Domonique Jones APRN, C.N.P., D.N.P. PCP - General 10/19/[address] [id number] documented as of this encounter
--- OUTSIDE RECORDS SUMMARY | 2021-12-14 01:28 | XMS_ITS | Encounter Summary ---
:1990 Author Organization [facility] Address [address] [place] [address] Care Team Providers Name Role Phone Domonique Jones APRN, C.N.PSymone, D.N.P. Primary Care Provider Reason for Visit Reason Comments Facial Pain COVID Nurse Line Encounter Details Date Type Department Care Team Description 12/21/2020 Nurse Triage Department of [facility] Alia Denise Fa cial Pain; COVID Medicine, [facility], in [place], [facility] [place], [place] [address] [address] JAH [place] [phone] (Work) [phone] Social History Tobacco Use Types Packs/Day Years [...] week 03/05/2021 How often do you attend hoahaoism or jehovah's witness services? Never 03/05/2021 Do you belong to any clubs or organizations such as hoahaoism N o 03/05/2021 groups, unions, fraternal or [...] have completed or the highest Rani, MEd, PRIVACY COMPLIANCE MANAGER, MARLEN) degree you have received? Sex Assigned at Date Recorded Female 01/16/2018 3:45 PM CDT documented as of this encounter Miscellaneous Notes Telephone Encounter - Alia Denise R.N. - 12/21/2020 7:30 AM CDT COVID-19 Nurse Line Screening ASSESSMENT Region Select appropriate region: : [place] Age Pathway Select approprite pathway: : Adult Have you had close contact* with a person who has a LABORATORY CONFIRMED case of COVID-19 in the past 14 days?: No (Continue Screening) In the last 48 hours, have you had a fever* OR symptoms that are unrelated to a preexisting illness?: New sore throat, New cough, New headache Have you received a COVID-19 vaccine in the last 72 hours? : No vaccine received (Continue Screening) Do you have any of the following urgent symptoms?: No urgent symptoms noted (Continue Screening) Have you tested positive for COVID-19 in the last 45 days?: No (Continue Screening) Are ALL the following criteria met: age between 18 to 75 yrs, main symptom is a sore throat with duration of 24 hrs to 7 days, onset of sore throat not associated with new upper respiratory symptoms*? : No, COVID testing is recommended (End Screening) Symptom Onset Date of symptom onset: 12/18/20 Testing Recommendation Endpoint Is testing recommended? : Recommended to test PLAN Endpoint recommendation: Symptomatic testing indicated, advised to be swabbed for COVID-19 Only , sent to [place] located at [address] . You must schedule an appointment for testing at this location. ??Please call [phone] during the hours of 7am to 6 pm (M-F) or 9 am to 4 pm (Sat and Sun) for an appointment time. You can also schedule via your Patient Online Services account. and Please avoid using public transportation per CDC recommendation. If you do not have personal transportation please self-quarantine until a personal transportation option is available. Standard Care Points -Get a COVID -19 vaccine as soon as you can if not fully vaccinated. -Wash hands frequently with soap and water, use hand inside sales lead if soap and water aren't available. -Wear [...] counter medications as needed for other symptoms. Use a humidifier. If you have received a negative COVID-19 test result and continue to have newor worsening symptoms after 72 hours please call the COVID Nurse Line to assess if you need repeat testing or reach out to your Primary Care Provider for guidance. Education: Patient/caregiver able to teach back Patient agreeable to plan of care: Yes The following references were used: [facility] novel coronavirus (COVID- 19) resources Telephone Encounter - Alia Denise R.N. - 12/21/2020 7:18 AM CDT Chief Complaint / Reason for Call Patient is a 30 y.o. female calling regarding Facial Pain and COVID Nurse Line. Assessment Concern: Sinus congestion and pain. Fever of 100.0 F, intermittent. Axillary. Pain 7/10. History of sore throat that is improving.Some coughing. Present for: 4 days Home cares tried: Tylenol 1000mg, Sinus congestion OTC. Fluids at least a gallon a day. Calling to request: Appointment Excluded from protocol. COVID screening completed. Testing indicated. Routing and education completed. Home cares reviewed with patient with verbal understanding. Patient continues to request appointment. Patient was warm transferred to [facility] at the clinic for further assistance per patient request. The recommended disposition is Home Care. Reason for Disposition ? ? [1] Sinus congestion as part of a cold AND [2] present < 10 days Protocols used: SINUS PAIN OR [id number] Care Advice Patient/Caregiver understands and will follow care advice?: Yes, able to teach back FOR A STUFFY NOSE - USE NASAL WASHES: * Introduction: Saline (salt water) nasal irrigation (nasal wash) is an effective and simple home remedy for treating stuffy nose and sinus congestion. The nose can be irrigated by pouring, spraying, or squirting salt water into the nose and then letting it run back out. * How it Helps: The salt water rinses out excess mucus, washes out any irritants (dust, allergens) that might be present, and moistens the nasal cavity. * Methods: There are several ways to perform nasal irrigation. You can use a saline nasal spray bottle (available [id number]), a rubber ear syringe, a medical syringe without the needle, or a NETI POT. [id number] INSTRUCTIONS: * STEP 1: Lean over a sink. * STEP 2: Gently squirt or spray warm salt water into one of your nostrils. * STEP 3: Some of the water may run into the back of your throat. Spit this out. If you swallow the salt water it will not hurt you. * STEP 4: Blow your nose to clean out the water and mucus. * STEP 5: Repeat steps 1-4 for the other nostril. You can do this a couple times a day if it seems to help you. HOW TO MAKE SALINE (SALT WATER) NASAL WASH: * You can make your own saline nasal wash. * Put 1 cup (8 oz; 240 ml) of water in a clean container. * Add 3/4 teaspoon of non-iodized salt (such as mary lou or pickling salt) to the water. * Add 1/4 teaspoon baking soda to the water. Stir well. * Use bottled or boiled tap water that has cooled. HOME CARE: * You should be able to treat this at home. REASSURANCE AND EDUCATION: * Sinus congestion is a normal part of a cold. * Usually home treatment with nasal washes can prevent an actual bacterial sinus infection. * Antibiotics are not helpful for the sinus congestion that occurs with colds. NASAL DECONGESTANTS FOR A VERY STUFFY NOSE: * MOST PEOPLE DO NOT NEED TO USE THESE MEDICINES. * If your nose feels blocked, you should try using nasal washes first. * If you have a very stuffy nose, nasal decongestant medicines can shrink the swollen nasal mucosa and allow for easier breathing. If you have a very runny nose, these medicines can reduce the amount of drainage. They may be taken as pills by mouth or as a nasal spray. * Pseudoephedrine (Sudafed): Available [id number] in pill form. Typical adult dosage is two 30mg tablets every 6 hours. * Oxymetazoline Nasal Drops (Afrin): Available [id number]. Clean out the nose before using. [place] each nostril once, wait one minute for absorption, and then spray a second time. * Phenylephrine Nasal Drops (Johny-Synephrine): Available [id number]-[id number]. Clean out the nose before using. [place] each nostril once, wait one minute for absorption, and then spray a second time. * Read the package instructions on all medicines that you take. PAIN MEDICINES: * For pain relief, take acetaminophen, ibuprofen, or naproxen. * Use the lowest amount that makes your pain feel better. * Before taking any medicine, read all the instructions on the package. EXPECTED COURSE: * Sinus congestion from viral upper respiratory infections (colds) usually lasts 5-10 days. * Occasionally a cold can worsen and turn into bacterial sinusitis. Clues to this are sinus symptomslasting longer than 10 days, fever lasting longer than 3 days and worsening pain. Bacterial sinusitis may need antibiotic treatment. CALL BACK IF: * Severe pain persists over 2 hours after pain medicine * Sinus pain persists over 1 day after using nasal washes * Sinus congestion (fullness) persists over 10 days * Fever lasts over 3 days * You become worse. documented in this encounter Plan of Treatment Not on filedocumented as of this encounter Visit Diagnoses Not on filedocumented in this encounter Additional Health Concerns Assessment Noted Time PHQ-9 Depression Total Score: 8 06/24/2020 6:13 PM BLANKET MAKER documented as of this encounter Care Teams Blue Line Trimmer Relationship Specialty Start Date End Date Domonique Jones APRN, C.N.P., D.N.P. PCP - General 10/19/162199 [address] [phone] documented as of this encounter
--- OUTSIDE RECORDS SUMMARY | 2021-12-14 01:28 | XMS_ITS | Encounter Summary ---
:1990 Author Organization [facility] Address [address] [place] [address] Care Team Providers Name Role Phone Domonique Jones APRN, C.N.PSymone, D.N.P. Primary Care Provider Reason for Visit Reason Comments GI Problem Appointment Request (Routine) - Closed Specialty Diagnoses / Procedures Referred By Contact Refer red To Contact Family Medicine Referral ID Status Reason Start Date Expiration Date Visits Requ ested Visits Authorized [id number] Closed 09/29/2020 09/29/2021 1 1 Encounter Details Date Type Department Care Team Description 10/12/2020 Office Visit Department of Family Domonique Jones Pain Epigastric Medicine, Edyta Guerrero APRN, C.N.PSymone, ([facility] D[facility]) Clinic, in [place] [address] [place] [phone] Social History Tobacco Use Types Packs/Day Years [...] week 03/05/2021 How often do you attend restorationist or islam services? 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 Sex Assigned at Date Recorded Female 01/16/2018 3:45 PM CDT documented as of this encounter Last Filed Vital Signs Vital Sign Reading Time Taken Comments Blood Pressure 120/60 10/12/2020 9:57 AM CDT Pulse 64 10/12/2020 9:57 AM CDT Temperature 36.8 ??C (98.3 ??F) 10/12/2020 9:57 AM CDT Respiratory Rate 16 10/12/2020 9:57 AM CDT Oxygen Saturation - - Inhaled Oxygen Concentration - - Weight 57.1 kg (125 lb 14.1 oz) 10/12/2020 9:57 AM CDT Height - - Body Mass Index 18.64 01/30/2019 3:54 PM CDT documented in this encounter Progress Notes Domonique Jones APRN, C.N.P., D.N.P. - 10/12/2020 9:30 AM CDT CHIEF COMPLAINT / REASON FOR VISIT Claudia Maradiaga is a 30 y.o. female who presents for evaluation of GI Problem. SUBJECTIVE HISTORY OF PRESENT ILLNESS Claudia Maradiaga is a 30 y.o. female who is here today for follow up on epigastric pain that occurs after eating. Please refer to clinic notes dated 09/24 and 09/28 for further details. She is now started on a PPI omeprazole 40 mg daily and H2 rhiannon twice daily. She says this has been somewhat helpful, but her symptoms persist. She did have a negative H Pylori test. She was encouraged to get lined up for an upper endoscopy if she continued to have symptoms. She hasn't had fevers or chills. No unintentional weight loss. No vomiting or bloody/black stools. She has been more stressed lately due towork. Claudia has never had problems with anesthesia. She is really very healthy. She doesn't have excessive NSAID or alcohol use. She only uses sertraline for anxiety and a multivitamin otherwise she's really not on any medications routinely. REVIEW OF SYSTEMS The pertinent review of systems is negative other than what is listed in the history of present illness. PAST MEDICAL/SURGICAL HISTORY Patient Active Problem List Diagnosis ??? Melanoma Family History ??? Nasal Septoplasty Status Post ??? Sprue Celiac Family History ??? Abnormal Pap Smear Cervix ??? Degeneration Disc Thoracolumbar Past Surgical History: Procedure Laterality Date ??? CARDIAC VALVE SURGERY ??? NASAL SEPTOPLASTY ??? SINUS SURGERY ??? SUBMUCOUS RESECTION OF NASAL SEPTUM WITH REPLACEMENT WITH GRAFT N/A 05/02/2004 Septoplasty or submucous resection, with or without cartilage scoring, contouring or replacement with graft.. MEDICATIONS Current Outpatient Medications Medication Sig ??? calcium carbonate (TUMS) 500 mg (200 mg calcium) chewable tablet Chew 1 tablet as needed for indigestion or heartburn. ??? famotidine (PEPCID) 20 mg tablet Take 1 tablet (20 mg total) by mouth 2 (two) times a day. ??? magnesium hydroxide (MILK OF MAGNESIA) 2,400 mg/10 mL suspension Take 10 mL by mouth as needed. ??? omeprazole (PriLOSEC) [address] capsule Take 1 capsule (40 mg total) by mouth daily. ??? pimecrolimus (ELIDEL) 1 % cream Apply 1 application topically 2 (two) times a day. Patient stated she uses as needed ??? [id number] ORAL Take by mouth. ??? sertraline (ZOLOFT) 50 mg tablet Take 1 tablet (50 mg total) by mouth daily. ??? UNABLE TO FIND Patient uses [facility]ology ALLERGIES Allergies Allergen Reactions ??? Alum-Mag Hydroxide-Simeth Rash ??? Aluminum-Magnesium Hydroxide Hives ??? Amoxicillin Rash and GI intolerance rash nausea ??? Azithromycin Rash ??? Lidocaine Rash and Hives OBJECTIVE VITAL SIGNS BP 120/60 (BP Location: Right arm, Patient Position: Sitting, Cuff Size: Regular) Pulse 64 Temp 36.8 ??C (Oral) Resp 16 Wt 57.1 kg LMP 10/11/2020 (Exact Date) No BMI 18.64 kg/m?? PHYSICAL EXAM General: Patient is alert and oriented and in no acute distress. Capable of full communication without difficulty. Patient is polite and cooperative. Appropriately dressed and normal hygiene. HEENT: Normocephalic, atraumatic. Pupils are equal, round and reactive to light. Auditory canals patent, tympanic membranes are pearly juarez with adequate visualization of bony prominences. Nares are patent. Oropharynx without lesion of mucosa. Pharynx rises symmetrically without exudate. Dentition grossly intact. Neck: No palpable lymph nodes, no thyroid enlargement or nodules. Neck is supple. Heart: Regular rate and rhythm. No murmurs, gallops or rubs noted. No S3, no S4. Lungs: Clear to auscultation bilaterally. No wheezing or crackles. No accessory muscles of respiration noted. Abdomen: Generally nontender to palpation. No hepatosplenomegaly. No mass. Normal bowel sounds in all 4 quadrants. No guarding or rebound tenderness. Musculoskeletal: Normal range of motion in extremities. Extremities: No neurovascular compromise. No cyanosis or clubbing. No edema. Skin: No rashes or wounds. No evidence of excessive bruising. Neuro: Cranial nerves II through XII are grossly intact. ASSESSMENT / PLAN ASSESSMENT/PLAN #1 Pain Epigastric I do want Claudia to proceed with upper endoscopy since she's only gotten some benefit from the Zantac and Omeprazole. I have a fairly high suspicion that this is gastritis and we should evaluate for gastrointestinal ulcer. Since this is for diagnostic purposes, I am going to have her stop her PPI and acid reducers 2 weeks prior to her endoscopy if she's able to tolerate that. She can use TUMS. I will get a CBC, liver panel and creatinine to be comprehensive, but I presume those will return within normal limits. She is medically optimized to proceed under choice anesthesia if done in 30 days. documented in this encounter Plan of Treatment Not on filedocumented as of this encounter Results Creatinine with Estimated GFR (10/20/2020 1:35 PM CDT) athologist Signature Creatinine, P 0.66 0.59 - 1.04 10/20/2020 [facility] mg/dL 2:09 PM CDT eGFR-Black/Afri >90 >=60 10/20/2020 [facility] can Thai mL/min/BSA 2:09 PM CDT Comment: ----ADDITIONAL INFORMATION---- [...] 1:42 Venous) CDT PM CDT Nick Jordan APRN.N.PSymone, D.N.P. LAB BLOOD ADD-ON Performing Organization Address City/State/ZIP Code Phon e Number [facility]- [address] [place] [address] [place] [address] System in [place] [address] Amylase, Total (10/20/2020 1:35 PM CDT) athologist Signature Amylase, Total, 64 28 - 100 10/20/2020 [facility] P U/L 2:09 PM CDT Specimen Anatomical Collection Method Collection Time Receive d Time (Source) Location / / Volume Laterality Blood (Blood, 10/20/2020 1:35 PM 10/21/19 21 1:42 Venous) CDT PM CDT Nick Jordan APRN.N.P., D.N.P. LAB BLOOD ADD-ON Performing Organization Address City/State/ZIP Code Phon e Number [facility]- [address] [place] [address] [facility] [place] [facility] [place] [address] System in [place] [address] Lipase (10/20/2020 1:35 PM CDT) athologist Signature Lipase, P 30 13 - 60 U/L 10/20/2020 2:09 [place] PM CDT Specimen Anatomical Collection Method Collection Time Receive d Time (Source) Location / / Volume Laterality Blood (Blood, 10/20/2020 1:35 PM 10/21/19 21 1:42 Venous) CDT PM CDT Nick Jordan APRN.N.P., D.N.P. LAB BLOOD ADD-ON Performing Organization Address City/State/ZIP Code Phon e Number [facility]- [address] [place] [address] [facility] [place] [facility] [place] [address] System in [place] [address] Bilirubin, Total (10/20/2020 1:35 PM [...] Address City/State/ZIP Code Phon e Number [facility]- [address] [place] [address] [facility] [facility] [place] [address] System in [place] [address] ALT (Alanine Aminotransferase) (10/20/2020 1:35 PM CDT) [facility] Method Time Signature Alanine 26 7 - 45 10/20/2020 [place] Aminotransferase U/L 2:09 PM CDT (ALT), P Specimen Anatomical Collection Method Collection Time Receive d Time (Source) Location / / Volume Laterality Blood (Blood, 10/20/2020 1:35 PM 10/21/19 21 1:42 Venous) CDT PM CDT Domonique Jones APRN C.N.P., D.N.P. LAB BLOOD ADD-ON Performing Organization Address City/[facility]/ZIP Code Phon e Number [facility]- [address] [place] [address] [facility] [facility] [place] [address] System in [place] [address] AST (Aspartate Aminotransferase) (10/20/2020 1:35 PM CDT) [facility] Method Time Signature Aspartate 32 8 - 43 10/20/2020 [place] Aminotransferase U/L 2:09 PM CDT (AST), P Specimen Anatomical Collection Method Collection Time Receive d Time (Source) Location / / Volume Laterality Blood (Blood, 10/20/2020 1:35 PM 10/21/19 21 1:42 Venous) CDT PM CDT Domonique Jones APRN, C.N.P., D.N.P. LAB BLOOD ADD-ON Performing Organization Address City/State/ZIP Code Phon e Number [facility]- [address] [place] [address] [facility] [facility] [place] [address] System in [place] [address] Alkaline Phosphatase (10/20/2020 1:35 PM CDT) P athologist Signature Alkaline 91 35 - 104 10/20/2020 [facility] Phosphatase, P U/L 2:09 PM CDT Specimen Anatomical Collection Method Collection Time Receive d Time (Source) Location / / Volume Laterality Blood (Blood, 10/20/2020 1:35 PM 10/21/19 21 1:42 Venous) CDT PM CDT Nick Jordan APRN.N.P., D.N.P. LAB BLOOD ADD-ON Performing Organization Address City/[facility]/ZIP Code Phon e Number [facility]- [address] [place] [address] [facility] [facility] [address] System in [place] [address] [facility] CBC without Differential (10/20/2020 1:35 PM CDT) [...] D.N.P. LAB BLOOD ADD-ON Performing Organization Address City/[facility]/ZIP Code Phon e Number 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 PCP - General 10/19/[address] [place] [phone] documented as of this encounter
--- OUTSIDE RECORDS SUMMARY | 2021-12-14 01:29 | XMS_ITS | Encounter Summary ---
:1990 Author Organization [facility] Address [address] [place] [address] Care Team Providers Name Role Phone Domonique Jones APRN, C.N.P., D.N.P. Primary Care Provider Reason for Visit Reason Comments Annual Exam Wants to talk about back iss ues and possible in home equipment Appointment Request (Routine) - Closed Specialty Diagnoses / Procedures Referred By Contact Refer red To Contact Family Medicine Referral ID Status Reason Start Date Expiration Date Visits Requ ested Visits Authorized [id number] Closed 01/07/2019 01/07/2020 1 1 Encounter Details Date Type Department Care Team Description 01/30/2019 Comprehensive Visit Department of Karen, General Medical Examination Adult (Primary Dx); Family MedicineDomonique APRN, Pap Smear Examination; [facility] in C.N.P., D.N. P. Melanoma Family History; [place], [place] [address] [facility] [phone] Social History Tobacco Use Types Packs/Day Years Used Date Smoking Tobacco: Never Smokeless Tobacco: Never Alcohol Use Standard Drinks/Week [...] How often do you attend quaker or moravian services? Never 03/05/2021 Do you [...] have completed or the highest Rani, MEd, EQUIPMENT SCHEDULER, MARLEN) degree you have received? Sex Assigned at Date Recorded Female 01/16/2018 3:45 PM CDT documented as of this encounter Last Filed Vital Signs Vital Sign Reading Time Taken Comments Blood Pressure 100/78 01/30/2019 3:54 PM CDT Pulse - - Temperature 36.6 ??C (97.9 ??F) 01/30/2019 3:54 PM CDT Respiratory Rate - - Oxygen Saturation - - Inhaled Oxygen Concentration - - Weight 56.4 kg (124 lb 5.4 oz) 01/30/2019 3:54 PM CDT Height 175 cm (5' 8.9) 01/30/2019 3:54 PM CDT Body Mass Index 18.42 01/30/2019 3:54 PM CDT documented in this encounter Patient Instructions Patient InstructionsRomDomonique delacruz APRN, C.N.P., D.N.P. - 01/30/2019 4:00 PM CDT Pap/HPV retesting today. If negative, I will double check the guidelines, but I think you can returnto normal screening intervals at that point. If unable to conceive in another 3-6 months, I would look into checking your body fat percentage. Most women need a body fat percentage of 17-19% to routinely ovulate. Can also try ovulation tests to help better time intercourse. documented in this encounter H&P Notes Domonique Jones APRN, C.N.P., Jian.N.P. - 01/30/2019 4:00 PM CDT CHIEF COMPLAINT / REASON FOR VISIT Claudia Maradiaga is a 29 y.o. female who presents for evaluation of Annual Exam (Wants to talk about back issues and possible in home equipment ). SUBJECTIVE HISTORY OF PRESENT ILLNESS Claudia Maradiaga is a delightful 29 y.o. female who is here for an annual physical. She does have one additional concern. She tells me she periodically has low back pain and sees Dr. Tang her chiropractor for this. She had a lumbar spine MRI done recently and he had recommended she get a traction device at home, but she is unsure of the specific details. She says her back is feeling decent right now but she wanted a baseline MRI to compare in case things worsen in a few years. Both her parents have had back surgeries at a pretty young age. Claudia's CDI MRI report shows several levels of mild and moderate disc degeneration. She has thoracolumbar scheuermann's changes with endplate irregularities and again several levels of dorsal disc protrusions as well as a dorsal annual fissure and bulge at L4-5. Claudia otherwise reports good health. She is now getting regular menses although they can be slightly irregular in intervals between. She is exercising 6 days per week and is a runner. She also does yoga. She and her have been trying to conceive since this spring. She is taking a vitamin and is a nonsmoker. 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 REVIEW OF SYSTEMS Answers for HPI/ROS submitted by the patient on 01/30/2019 No general issues: Yes No eye issues: Yes No ENT issues: Yes No heart issues: Yes No respiratory issues: Yes No GI issues: Yes No muscle/bone issues: Yes No skin issues: Yes No neurologic issues: Yes No mental health issues: Yes No blood/lymph issues: Yes No urinary/reproductive issues: Yes PAST MEDICAL/SURGICAL HISTORY Patient Active Problem List Diagnosis ??? Melanoma Family History ??? Nasal Septoplasty Status Post ??? Sprue Celiac Family History ??? Abnormal Pap Smear Cervix ??? Degeneration Disc Thoracolumbar Past Surgical History: Procedure Laterality Date ??? NASAL SEPTOPLASTY ??? SUBMUCOUS RESECTION OF NASAL SEPTUM WITH REPLACEMENT WITH GRAFT N/A 05/02/2004 Septoplasty or submucous resection, with or without cartilage scoring, contouring or replacement with graft.. FAMILY HISTORY Family History Problem Relation Age of Onset ??? Eczema Father ??? Melanoma Sister ??? Other (Patend ductus arteriosis) Sister 0 ??? Celiac disease Mother ??? Celiac disease Brother ??? Celiac disease Mother's Sister SOCIAL HISTORY Social History Socioeconomic History ??? Marital status: Single Spouse name: None ??? Number of children: None ??? Years of education: None ??? Highest education level: Master's degree (e.g., MA, MS, Rani, MEd, EQUIPMENT SCHEDULER, MARLEN) Occupational History ??? None Social Needs ??? Financial resource strain: Not very hard ??? Food insecurity: Worry: Never true Inability: Never true ??? Transportation needs: Medical: No Non-medical: No Tobacco Use ??? Smoking status: Never Smoker ??? Smokeless tobacco: Never Used Substance and Sexual Activity ??? Alcohol use: No Frequency: Never Drinks per session: Patient refused Binge frequency: Never ??? Drug use: No ??? Sexual activity: Yes Partners: Male control/protection: Pill Lifestyle ??? Physical activity: Days per week: 7 days Minutes per session: 40 min ??? Stress: Only a little Relationships ??? Social connections: Talks on phone: Twice a week Gets together: Once a week Attends moravian service: Never Active member of club or organization: No Attends meetings of clubs or organizations: Never Relationship status: ??? Intimate partner violence: Fear of current or ex partner: No Emotionally abused: No Physically abused: No Forced sexual activity: None Other Topics Concern ??? None Social History Narrative ??? None MEDICATIONS Current Outpatient Medications Medication Sig ??? acetaminophen (for_TYLENOL) 325 mg tablet Tylenol See Instructions, PO ??? pimecrolimus (ELIDEL) 1 % cream Apply 1 application topically 2 (two) times a day. ??? [id number] ORAL Take by mouth. ALLERGIES Allergies Allergen Reactions ??? Alum-Mag Hydroxide-Simeth Rash ??? Aluminum-Magnesium Hydroxide Hives ??? Amoxicillin Rash and GI intolerance rash nausea ??? Azithromycin Rash ??? Lidocaine Rash and Hives OBJECTIVE VITAL SIGNS Vitals: 01/30/19 1554 BP: 100/78 Patient Position: Sitting Temp: 36.6 ??C Height: 175 cm Weight: 56.4 kg TempSrc: Temporal PHYSICAL EXAM GENERAL: Patient is alert and oriented, in no acute distress. Capable of full communication without difficulty. Patient is polite and cooperative. Appropriately dressed and normal hygiene. HEENT: Normocephalic, atraumatic. Pupils are equal, round and reactive to light. Auditory canals patent, tympanic membranes are pearly juarez with visualization of bony structures. Oropharynx without lesion. Pharynx rises symmetrically without exudate. Dentition grossly intact. NECK: No lymphadenopathy, no thyromegaly. HEART: Regular rate and rhythm. No murmurs, gallops or rubs noted. No S3, No S4. LUNGS: Slight pectus excavatum shape to chest wall. Regular rate and rhythm of respirations. Clear to auscultation bilaterally. No wheezes or crackles. No accessory muscles of respiration noted. BREASTS: Soft breast tissue without predominant mass or nodularity. No nipple discharge. Nipples everted bilaterally. No axillary or supraclavicular adenopathy. ABDOMEN: Nontender to palpation. No hepatosplenomegaly. No mass. Normal bowel sounds in all 4 quadrants. PELVIS: Normal external genitalia. Normal vaginal discharge. Mucosa moist and well rugated. Pap smear is taken by thin-prep technology. Bimanual exam reveals no significant adnexal fullness although right ovary is more easily palpated than left. No cervical motion tenderness. Anus appears normal. EXTREMITIES: No neurovascular compromise. No cyanosis, clubbing or edema. No abnormal limb length. NEURO: Cranial nerves II through XII are grossly intact. SKIN: No rashes, lesions, or abnormal nevi meeting criteria for biopsy. MENTAL: Affect is normal. Speech is clear and coherent. Thought process is appropriate. Good eye contact. DIAGNOSIS/PLAN #1 General Medical Examination Adult #2 Pap Smear Examination - ThinPrep w/HPV Co-Test Screen #3 Melanoma Family History #4 Degeneration Disc Thoracolumbar Other orders - influenza vaccine quad (FLUZONE/FLUARIX) (36 months and older) (PF) Routine Health Maintenance. Colon cancer screening due at age 50. Mammogram due at age 39. Pap test with HPV co-testing done today. Will defer to guidelines, but I believe she can return to routine interval paps if this pap and HPV testing returns negative.. Fasting blood glucose not indicated. Lipid profile due in 2020. TDaP immunization due in 2023. Influenza immunization updated today. She will continue once yearly skin checks with family history of melanoma in her sister. She can do this with myself or with [facility] dermatology. Discussed with Claudia that with her BMI of 18.4 if she is unable to conceive in the next 3-6 months, I would suggest she cut back on exercise slightly and try to increase her body weight to achieve aslightly higher BMI and body fat percentage. To get an idea of her body fat percentage, she can use an In Body scanner. There are several nutrition stores in [place] that have them. Would aim for at least a 17-19% body fat to help regulate and ensure ovulation. She will continue her vitamin. If unable to conceive after a full year of regular unprotected intercourse, I would suggest a referral to PLUMBING AND HEATING [facility]CH[employer]IC. She will get back to me on which piece of home equipment her chiropractor, Dr. Tang, feels would be beneficial and I would be happy to prescribe that for her. I recommend preventative health care measures including healthy diet, exercise, 100% seatbelt use, dental visits every 6 months, annual eye exams, breast self awareness, safe sun exposure, and home safety. She will follow up in one year for annual exam, sooner if concerns arise. documented in this encounter Plan of Treatment Not on filedocumented as of this encounter Procedures Procedure Name Priority Date/Time Associated Diagnosis Comme nts THINPREP W/HPV Routine 01/30/2019 5:18 PM Pap Smear Results for this CO-TEST SCREEN CDT Examination procedure are in the results section. HPV WITH Routine 01/30/2019 5:18 PM Results f or this GENOTYPING, PCR, CDT procedure a re in THINPREP the results section. documented in this encounter Results HPV with Genotyping, PCR, ThinPrep (01/30/2019 5:18 PM CDT) athologist Signature HPV with Negative Negative 01/31/2019 Genotyping, 1:01 PM CDT ThinPrep, PCR Comment: Negative for high risk HPV by nucleic ac id amplification. ??The following high risk HPV types were not detected: 16, 18, 31, 33, 35, 39, 45, 51, 52, 56, 58, 59, 66, and 68 Specimen Anatomical Collection Method Collection Time Receive d Time (Source) Location / / Volume Laterality Varies 01/30/2019 5:18 PM 9 7:04 CDT AM CDT Nick Jordan APRN.N.P., D.N.P. LAB MICROBIOLOGY - GENERAL ORDERABLES Performing Organization Address City/State/ZIP Code Phon e Number [address] [id number] LAB ThinPrep w/HPV Co-Test Screen (01/30/2019 5:18 PM CDT) Component Value Ref Test Analysis Performed Pathologis t Range Method Time At Signature 02/03/2019 8:15 AM CDT Report CASSIE Rodas(ASCP) 02/03/2019 electronically I verify that I have examined all relevant slides/ma terials 8:15 AM signed by for the specimen(s) and rendered or confirmed the diagnosis. CDT Gross Description Received specimen 02/03/2019 in a ThinPrep 8:15 AM vial. CDT Pap Test Source Cervical/Endocervi 02/03/2019 [email or web address] 8:15 AM CDT Clinical History NONE 02/03/2019 8:15 AM CDT Menstrual Amenorrhea 02/03/2019 Status(LMP, PM, 8:15 AM ) CDT Hormone None/Not known 02/03/2019 Therapy/Contracep 8:15 AM tives CDT Interpretation Cervical/Endocervical ??(ThinPrep): 02/03/2019 Satisfactory for Evaluation 8:15 AM Negative for Intraepithelial Lesion or Malignancy CDT High Risk HPV: ??Negative Negative for High Risk HPV by nucleic acid amplification. The following High Risk HPV types were not detected: 16, 18, 31, 33, 35, 39, 45, 51, 52, 56, 58, 59, 66, and 68. Specimen Anatomical Collection Method Collection Time Receive d Time (Source) Location / / Volume Laterality Varies 01/30/2019 5:18 PM 9 7:04 (Cervix/Endocerv CDT AM CDT ix) Narrative This result has an attachment that is no t available. Catrina Jordan APRNNKarsten, D.N.P. LAB PAP PATHDX O RDERABLES Performing Organization Address City/[facility] Phon e Number [place] [phone] [place] [address] CYTOLOGY documented in this encounter Visit Diagnoses Diagnosis General Medical Examination Adult - Prim sundeep Pap Smear Examination Melanoma Family History Degeneration Disc Thoracolumbar documented in this encounter Care Teams Tire Vulcanizer Relationship Specialty Start Date End Date Domonique Jones APRN, C.N.Lori, D.N.P. PCP - General 10/19/16 [address] [place] [phone] documented as of this encounter
--- OUTSIDE RECORDS SUMMARY | 2021-12-14 01:29 | XMS_ITS | Encounter Summary ---
:1990 Author Organization [facility] Address [address] [place] [address] Care Team Providers Name Role Phone Domonique Jones APRN C.N.PSymone, D.N.P. Primary Care Provider Encounter Details Date Type Department Care Team Description 01/16/2018 Hospital Encounter Department of Domonique Jones; Laboratory Medicine SERGE Guerrero Sprue Ce liac Family History in [place] C.N.PSymone, D.N.P. [place] [address] [place] [phone] Social History Tobacco Use Types Packs/Day [...] How often do you attend nondenominational or buddhist services? Never 03/05/2021 Do you belong to [...] place to sleep or slept in a skilled nursing (including now)? Sex Assigned at Date Recorded Female 01/16/2018 3:45 PM CDT documented as of this encounter Medications at Time of Discharge Medication Sig Dispensed Refills Start Date End Date acetaminophen Tylenol See 0 04/29/2016 10/12/2020 (for_TYLENOL) 325 mg Instructions, PO tablet MONICO FE .10/03, 28, 1.5 2 11/06/2017 04/26/2018 mg-30 mcg (21)/75 mg (7) tablet norethindrone ac-eth Take 1 tablet by 84 each 3 8 08/02/2018 estradiol (LOESTRIN mouth daily. .10/03, 21,) 1.5-30 mg-mcg tablet pimecrolimus (ELIDEL) 1 Apply 1 application 0 04/201603/21/2021 % cream topically 2 (two) times a day. Patient stated she uses as needed documented as of this encounter Plan of Treatment Not on filedocumented as of this encounter Procedures Procedure Name Priority Date/Time Associated Comments Diagnosis CELIAC DISEASE SEROLOGY Routine 01/16/2018 4:51 Flatulen ce Results for this CASCADE, S PM CDT Sprue Celiac procedure are i n Family History the results section. TISSUE TRANSGLUTAMINASE Routine 01/16/2018 4:51 R esults for this (TTG) AB, IGA, S PM CDT procedure a re in the results section. documented in this encounter Results tTG (Tissue Transglutaminase), Antibody, IgA (01/16/2018 4:51 PM CDT) Patholo gist Method Time Signature Tissue <1.2 <4.0 01/17/2018 [facility] Transglutaminase Ab, (Negative 12:49 PM LABORATOR IES - IgA, S ) U/mL CDT [facility] Specimen Anatomical Collection Method Collection Time Receive d Time (Source) Location / / Volume Laterality Blood 01/16/2018 4:51 PM 8 CDT 12:49 PM CDT Catrina Jordan APRNN.Munir., D.N.P. LAB BLOOD ADD-ON Performing Organization Address City/[facility] Phon e Number [facility] LABORATORIES - [address] [place], [place] [address] [facility] Celiac Disease Serology [place] (01/16/2018 4:51 PM CDT) Component Value Ref Test Analysis Performed At [facility] Range Method Time Signature Immunoglobulin A 199 61 - 01/17/2018 [facility] (IgA), S 356 8:55 AM LABORATORIES - mg/dL CDT [facility] Celiac Disease Negative serology. Celiac di sease unlikely. However, approximately 10% of 01/17/2018 [facility] Interpretation patients with celiac disease are seronegative. Also, patients who are already 10:44 PM LABORATORIES - adhering to a gluten-free diet may be seronegative. If braulio iac disease is CDT [facility] highly clinically suspected, consider HLA-DQ typing. [place] Specimen Anatomical Collection Method Collection Time Receive d Time (Source) Location / / Volume Laterality Blood (Blood, 01/16/2018 4:51 PM 01/18/20 18 6:34 Venous) CDT AM CDT Catrina Jordan APRNNAi., D.N.P. LAB BLOOD ADD-ON Performing Organization Address City/[facility] Code Phon e Number [facility] LAB[facility]ATORIES - [address] [place], [place] [address] [facility] documented in this encounter Visit Diagnoses Diagnosis Flatulence Sprue Celiac Family History documented in this encounter Care Teams Mitering Machine Operator Relationship Specialty Start Date End Date Domonique Jones APRN, C.N.P., D.N.P. PCP - General 10/19/16 [address], [place] [phone] documented as of this encounter
--- OUTSIDE RECORDS SUMMARY | 2021-12-14 01:29 | XMS_ITS | Encounter Summary ---
:1990 Author Organization [facility] Address [address] [place] [address] Care Team Providers Name Role Phone Domonique Jones APRN, C.N.P., D.N.P. Primary Care Provider Reason for Visit Reason Comments Injury w/c:[place] [employer] DOI: 02/24/20 got hit in the nose with a plastic timer and is painful and the pain has gotten worse. states her teeth, nose and head have been hurting nose is more painful on left side and there is some swelling Appointment Request (Routine) - Closed Specialty Diagnoses / Procedures Referred By Contact Refer red To Contact Family Medicine Referral ID Status Reason Start Date Expiration Date Visits Requ ested Visits Authorized [id number] Closed 02/26/2020 02/25/2021 1 1 Encounter Details Date Type Department Care Team Description 02/26/2020 Office Visit Urgent Care in [place] M, Contusion N ose Initial [place], [place] P.A.-C. (Primary Dx) [address], [place] [phone] Social History Tobacco Use Types Packs/Day Years [...] week 03/05/2021 How often do you attend taoist or religion services? Never 03/05/2021 Do you belong to any clubs or organizations such as taoist N o 03/05/2021 groups, unions, fraternal or [...] place to sleep or slept in a penitentiary (including now)? Education Answer Date Recorded What is the highest level of school Master's degree (e.g., Candice Nieves, MS, 01/30/2019 you have completed or the highest Rani, MEd, RADIOLOGY TECHNOLOGIST, MARLEN) degree you have received? Sex Assigned at Date Recorded Female 01/16/2018 3:45 PM CDT documented as of this encounter Last Filed Vital Signs Vital Sign Reading Time Taken Comments Blood Pressure 124/70 02/26/2020 3:12 PM CDT Pulse 54 02/26/2020 3:12 PM CDT Temperature 36.5 ??C (97.7 ??F) 02/26/2020 3:12 PM CDT Respiratory Rate 16 02/26/2020 3:12 PM CDT Oxygen Saturation 100% 02/26/2020 3:12 PM CDT Inhaled Oxygen Concentration - - Weight 56.8 kg (125 lb 3.5 oz) 02/26/2020 3:12 PM CDT Height - - Body Mass Index 18.55 01/30/2019 3:54 PM CDT documented in this encounter Progress Notes Pearl Alberto P.A.-C. - 02/26/2020 3:15 PM CDT SUBJECTIVE CHIEF COMPLAINT/REASON FOR VISIT Injury (w/c:[employer] DOI: 02/24/20 got hit in the nose with a plastic timer and is painful and the pain has gotten worse. states her teeth, nose and head have been hurting nose is more painful on left side and there is some swelling ) HISTORY OF PRESENT ILLNESS Claudia Maradiaga is a 30 y.o. female who presents for evaluation of facial injury. 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 The child became angry and took a small, plastic clock/timer and hit it against the patient's left side of her nose and face. She immediately had epistaxis which resolved within a few minutes. She is having persistent pain mostly in her nose, but it is extending up towards her forehead, the left side of her cheek bone, and into her teeth. She denies any dizziness, headache, vision changes, loss of consciousness, vomiting. She has not had any bleeding or drainage from her ears or nose since the injury. Patient Active Problem List Diagnosis ??? Melanoma Family History ??? Nasal Septoplasty Status Post ??? Sprue Celiac Family History ??? Abnormal Pap Smear Cervix ??? Degeneration Disc Thoracolumbar CURRENT MEDICATIONS Current Outpatient Medications Medication Sig Dispense Refill ??? acetaminophen (for_TYLENOL) 325 mg tablet Tylenol See Instructions, PO ??? pimecrolimus (ELIDEL) 1 % cream Apply 1 application topically 2 (two) times a day. ??? [id number] ORAL Take by mouth. No current facility-administered medications for this visit. ALLERGIES/CONTRAINDICATIONS Allergies Allergen Reactions ??? Alum-Mag Hydroxide-Simeth Rash ??? Aluminum-Magnesium Hydroxide Hives ??? Amoxicillin Rash and GI intolerance rash nausea ??? Azithromycin Rash ??? Lidocaine Rash and Hives OBJECTIVE BP 124/70 (BP Location: Right arm, Patient Position: Sitting, Cuff Size: Regular) Pulse (!) 54 Temp 36.5 ??C (Temporal) Resp 16 Wt 56.8 kg SpO2 100% BMI 18.55 kg/m?? PHYSICAL EXAMINATION General: No acute distress. Patient is polite and cooperative. Appropriately dressed and normal hygiene. Skin: No suspicious lesions or rash noted over exposed skin. HEENT: Normocephalic. There is moderate tenderness to palpation to the bridge of the nose with mild ecchymosis. There is no obvious septal deviation or deformity to the nose. She has no tenderness to palpation over maxillary bones or remainder of facial bones. No crepitus.Pupils equal, conjunctiva clear. Bilateral tympanic membranes without erythema, bulging, or effusion. Normal pharynx, without erythema or tonsillar enlargement or exudate. Uvula midline. Neck: No nodes, no thyromegaly. Heart: Regular rate and rhythm. No murmurs, gallops or rubs noted. Lungs: Clear to auscultation bilaterally. No expiratory wheeze. No accessory muscles of respiration noted. Neuro: PEERLA, extraocular movements intact, no nystagmus. Cranial nerves 2-12 intact. Normal strength and sensation throughout. Strength is 5/5 in all major muscle groups. Normal coordination. Negative romberg. Mental Health: Alert and oriented. Normal thought form and content. DIAGNOSTICS DX Facial Bones: IMPRESSION: No appreciable acute osseous injury of the visualized facial bones. ?? If there is high index concern for acute osseous injury of the maxillofacial bones, CT of the maxillofacial bones would be more sensitive. ?? ASSESSMENT / PLAN #1 Contusion Nose Initial - Patient has a mild facial injury, isolated to her nose, where there is obvious ecchymosis. Discussed that without any tenderness to remainder of facial bones and no crepitus, along with mechanism of injury, fracture risk is low. Will obtain xray to confirm. This was negative. I suspect her injury will be self-resolving. - Recommend supportive cares including application of ice, ibuprofen/tylenol as needed. - If she has no improvement in her symptoms in 1 week, worsening of symptoms she should return to clinic. If she develops severe pain, persistent epistaxis, severe headache, vomiting, dizziness, visionchanges, or any new symptoms she should present to the emergency department. Electronically signed by: Pearl Alberto P.A.-C. 02/26/20 4:22 PM CDT documented in this encounter Plan of Treatment Not on filedocumented as of this encounter Results DX Facial Bones 3+ Views (02/26/2020 3:52 PM CDT) Anatomical Region Laterality Modality Skull, Neuroradiology RST LOS, Neuroradiology ARZ LOS, N/A Digital Radiography Muskuloskeletal FLA LOS Specimen (Source) Anatomical Collection Method Collection Time Re ceived Time Location / / Volume Laterality 02/26/2020 3:59 PM CDT Impressions 02/26/2020 4:00 PM CDT No appreciable acute osseous injury of the visualized facial bones. If there is high index concern for acute osseous injury of the maxillofacial bones, CT of the maxillofacial bones wou ld be more sensitive. Narrative 02/26/2020 4:00 PM CDT EXAM: DX FACIAL BONES 3+ VIEWS COMPARISON: None Procedure Note Stuart Wood M.D. - 02/26/2020Forma tting of this note might be different from the original. EXAM: DX FACIAL BONES 3+ VIEWS COMPARISON: None IMPRESSION: No appreciable acute osseous injury of t he visualized facial bones. If there is high index concern for acute osseous injury of the maxillofacial bones, CT of the maxillofacial bones wou ld be more sensitive. Pearl Alberto P.A.-C. IMMoe DIAGNOSTIC IMAGING KAREN MCCARTHY documented in this encounter Visit Diagnoses Diagnosis Contusion Nose Initial - Primary Injury Head Initial documented in this encounter Care Teams Cryptanalyst Relationship Specialty Start Date End Date Domonique Jones APRN, C.N.P., D.N.P. PCP - General 10/19/162199 [address] [address] documented as of this encounter
--- OUTSIDE RECORDS SUMMARY | 2021-12-14 01:29 | XMS_ITS | Encounter Summary ---
:1990 Author Organization [facility] Address [address] [place] [address] Care Team Providers Name Role Phone Domonique Jones APRN, C.N.PSymone, D.N.P. Primary Care Provider Reason for Visit Reason Comments Abdominal Pain COVID Nurse Line Encounter Details Date Type Department Care Team Description 09/24/2020 Nurse Triage Department of [facility] Hina Souza bdominal Pain; COVID Medicine, [place] O, R.NSymone Nurse Line Clinic, in [place], [facility] [place], [place] [address] [phone] [place] [phone] Social History Tobacco Use Types Packs/Day [...] week 03/05/2021 How often do you attend cheondoism or yarsani services? Never 03/05/2021 Do you belong to any clubs or organizations such as cheondoism N o 03/05/2021 groups, unions, fraternal or [...] have completed or the highest Rani, MEd, PROCESS SAFETY SPECIALIST, MARLEN) degree you have received? Sex Assigned at Date Recorded Female 01/16/2018 3:45 PM CDT documented as of this encounter Miscellaneous Notes Telephone Encounter - Hina Souza RJaguar - 09/24/2020 12:46 PM CDT Chief Complaint / Reason for Call Patient is a 30 y.o. female calling regarding Abdominal Pain and COVID Nurse Line. Assessment Concern: Discomfort after eating; Currently rates pain 7/10; states that the pain will last 30-45 minutes; describes as waves of pain on left side inside corner of ribcage near the bottom; no injury Present for: 1 week; this episode started 25 minutes ago Home cares tried: tums without relief Calling to request: Appointment The recommended disposition is See a health care provider within 24 hours. Caller/Patient was warm transferred to the clinic for further assistance. Reason for Disposition ??? [1] MODERATE pain (e.g., interferes with normal activities) AND [2] pain comes and goes (cramps)AND [3] present > 24 hours (Exception: pain with Vomiting or Diarrhea - see that Guideline) Protocols used: ABDOMINAL PAIN - ANRCEU-OSAMV-DB Care Advice Patient/Caregiver understands and will follow care advice?: Yes, able to teach back SEE PCP WITHIN 24 HOURS: * IF OFFICE WILL BE OPEN: You need to be seen within the next 24 hours. Call your doctor (or [facility]PA) when the office opens and make an appointment. DIET: * Drink adequate fluids. Eat a bland diet. * Avoid alcohol or caffeinated beverages * Avoid greasy or fatty foods. CALL BACK IF: * Severe pain lasts over 1 hour * Constant pain lasts over 2 hours * You become worse. COVID-19 Nurse Line Screening ASSESSMENT Region Select appropriate region: : [place] Age Pathway Select approprite pathway: : Adult Have you had close contact* with a person who has a LABORATORY CONFIRMED case of COVID-19 in the past 14 days?: No (Continue Screening) In the last 48 hours, have you had a fever* OR symptoms that are unrelated to a preexisting illness?: No symptoms noted (Continue Screening) Have you tested positive for COVID-19 in the last 90 days?: No (Continue Screening) Have you been advised to undergo testing or are you requesting testing?: No, testing not recommended(End Screening) Testing Recommendation Endpoint Is testing recommended? : Not recommended to test PLAN Endpoint recommendation: Screening negative, testing not indicated at this time Care Points: -Wash hands frequently with soap and water for at least 20 seconds -If soap and water are not available, use a hand lockstitch hemmer -Avoid touching your eyes, nose and mouth. -Clean and disinfect high-touch surfaces routinely. -Wear a mask over your nose and mouth. A cloth face cover is not a substitute for social distancing -Continue to keep about 6 feet between yourself and others. -Avoid public areas and public transportation. -Find new ways to connect with family and friends, get support and share feelings. -Seek emergent care if any of the following occur Trouble breathing Bluish lips or face Persistent pain or pressure in the chest New confusion or inability to rouse. -Notify your regular care provider of any new or worsening symptoms. documented in this encounter Plan of Treatment Not on filedocumented as of this encounter Visit Diagnoses Not on filedocumented in this encounter Additional Health Concerns Assessment Noted Time PHQ-9 Depression Total Score: 8 06/24/2020 6:13 PM [employer] WH[employer] documented as of this encounter Care Teams Swift Tender Relationship Specialty Start Date End Date Domonique Jones APRN, C.N.P., D.N.P. PCP - General 10/19/16 [address] [place] [address] documented as of this encounter
--- OUTSIDE RECORDS SUMMARY | 2021-12-14 01:29 | XMS_ITS | Encounter Summary ---
:1990 Author Organization [facility] Address [address] [place] [address] Care Team Providers Name Role Phone Domonique Jones APRN, C.N.P., D.N.P. Primary Care Provider Reason for Visit Reason Comments Dizziness Encounter Details Date Type Department Care Team Description 10/01/2018 - Emergency [facility] Headache (Primary Dx); 10/02/[address] Dizziness [place] [phone] Social History Tobacco Use Types Packs/Day Years [...] How often do you attend cheondoism or tenriism services? Never 03/05/2021 Do you belong to [...] or slept in a residential (including now)? Sex Assigned at Date Recorded Female 01/16/2018 3:45 PM CDT documented as of this encounter Medications at Time of Discharge Medication Sig Dispensed Refills Start Date End Date acetaminophen Tylenol See 0 04/29/2016 10/12/2020 (for_TYLENOL) 325 mg Instructions, PO tablet pimecrolimus (ELIDEL) 1 Apply 1 application 0 04/201603/21/2021 % cream topically 2 (two) times a day. Patient stated she uses as needed documented as of this encounter Plan of Treatment Not on filedocumented as of this encounter Procedures Procedure Name Priority Date/Time Associated Comments Diagnosis CT HEAD WITHOUT RAD - Semiurgent 10/01/2018 2:26 Dizziness Resul ts for this IV CONTRAST (Fast; most ED PM CDT procedure are in patients; some the results inpatients) section. documented in this encounter Results CT Head without IV Contrast (10/01/2018 2:26 PM CDT) Anatomical Region Laterality Modality Head, Neuroradiology RST LOS, Neuroradiology ARZ [facility], N/A Computed Tomography Neuroradiology FLA [facility] Specimen (Source) Anatomical Collection Method Collection Time Re ceived Time Location / / Volume Laterality 10/01/2018 2:29 PM CDT Impressions 10/01/2018 2:31 PM CDT IMPRESSION: No acute intracranial findings. Narrative 10/01/2018 2:31 PM CDT EXAM: CT HEAD WITHOUT IV CONTRAST COMPARISON: None FINDINGS: No CT evidence of acute ischem ia, hemorrhage or mass effect. No skull fracture or calvarial lesion. Negative o rbits. Mild mucosal thickening of the paranasal sinuses. The mastoid air cells are clear. Procedure Note Nani Funez M.D. - 10/01/2018Forma tting of this note might be different from the original. EXAM: CT HEAD WITHOUT IV CONTRAST COMPARISON: None FINDINGS: No CT evidence of acute ischem ia, hemorrhage or mass effect. No skull fracture or calvarial lesion. Negative o rbits. Mild mucosal thickening of the paranasal sinuses. The mastoid air cells are clear. IMPRESSION: No acute intracranial findings. Gt Stanley M.D. IMMoe CT PROCEDURES documented in this encounter Visit Diagnoses Diagnosis Headache Unspecified - Primary Dizziness documented in this encounter Care Teams Certified Maintenance Welder Relationship Specialty Start Date End Date Domonique Jones APRN, C.N.P., D.N.P. PCP - General 10/19/16 [address] [place] [phone] documented as of this encounter
--- OUTSIDE RECORDS SUMMARY | 2021-12-14 01:29 | XMS_ITS | Encounter Summary ---
:1990 Author Organization [facility] Address [address] [place] [address] Care Team Providers Name Role Phone Domonique Jones APRN, C.N.P., D.N.P. Primary Care Provider Encounter Details Date Type Department Care Team Description 12/12/2018 Orders Only [facility] PCP TH MNT Domonique Jones APRN, C.N.P., D.N.P. [address] [facility] [place] [place] [phone] (Wo rk) Social History Tobacco Use Types Packs/Day Years [...] week 03/05/2021 How often do you attend latter day or hinduism services? Never 03/05/2021 Do you belong to any clubs or organizations such as latter day N o 03/05/2021 groups, unions, fraternal or [...] place to sleep or slept in a care home (including now)? Sex Assigned at Date Recorded Female 01/16/2018 3:45 PM CDT documented as of this encounter Plan of Treatment Not on filedocumented as of this encounter Visit Diagnoses Not on filedocumented in this encounter Care Teams Traffic Superintendent Relationship Specialty Start Date End Date Domonique Jones APRN, C.N.P., D.N.P. PCP - General 10/19/16 [address] [place] [phone] documented as of this encounter
--- OUTSIDE RECORDS SUMMARY | 2021-12-14 01:29 | XMS_ITS | Encounter Summary ---
:1990 Author Organization [facility] Address [address] [place] [address] Care Team Providers Name Role Phone Domonique Jones APRN, C.N.P., D.N.P. Primary Care Provider Encounter Details Date Type Department Care Team Description 02/26/2020 Hospital Encounter Department of Pearl Alberto, Injury Head Initial Radiology in [place] [address] [place], [place] [phone] Social History Tobacco Use Types Packs/Day [...] How often do you attend protestant or sabianism services? Never 03/05/2021 Do you belong to [...] have completed or the highest Rani, MEd, INDEPENDENT LIVING INSTRUCTOR, MARLEN) degree you have received? Sex Assigned at Date Recorded Female 01/16/2018 3:45 PM CDT documented as of this encounter Medications at Time of Discharge Medication Sig Dispensed Refills Start Date End Date [id number] Take by mouth. 0 [id number] ORAL acetaminophen Tylenol See 0 04/29/2016 10/12/2020 (for_TYLENOL) 325 mg Instructions, PO tablet pimecrolimus (ELIDEL) 1 Apply 1 application 0 04/201603/21/2021 % cream topically 2 (two) times a day. Patient stated she uses as needed documented as of this encounter Plan of Treatment Not on filedocumented as of this encounter Procedures Procedure Name Priority Date/Time Associated Comments Diagnosis DX FACIAL BONES RAD - Routine 02/26/2020 3:52 Injury Head Results for this 3+ VIEWS (most inpatients PM CDT Initial procedure a re in and all the results outpatients) section. documented in this encounter Results DX Facial Bones 3+ [...] bones wou ld be more sensitive. Pearl NARANJO DIAGNOSTIC IMAGING PROCE FABIO documented in this encounter Visit Diagnoses Diagnosis Injury Head Initial documented in this encounter Care Teams Therapeutic Case Manager Relationship Specialty Start Date End Date Domonique Jones APRN, C.N.P., D.N.P. PCP - General 10/19/[address] [address] documented as of this encounter
--- OUTSIDE RECORDS SUMMARY | 2021-12-14 01:29 | XMS_ITS | Encounter Summary ---
:1990 Author Organization [facility] Address [address] [place] [address] Care Team Providers Name Role Phone Domonique Jones APRN, C.N.PSymone, D.N.P. Primary Care Provider Encounter Details Date Type Department Care Team Description 06/24/2020 Clinical Communication Division of [facility], , RJaguar [address] [address] [place], [place] [phone] (Work) [phone] Social History Tobacco Use Types Packs/Day Years [...] How often do you attend christian or mandaeism services? Never 03/05/2021 Do you belong to [...] place to sleep or slept in a prison (including now)? Education Answer Date Recorded What is the highest level of school Master's degree (e.g., M A, MS, 01/30/2019 you have completed or the highest Rani, MEd, SLACKLINE OPERATOR, MARLEN) degree you have received? Sex Assigned at Date Recorded Female 01/16/2018 3:45 PM CDT documented as of this encounter Miscellaneous Notes Telephone Encounter - Fara Valadez R.N. - 06/24/2020 11:39 AM ELECTRONICS TECHNOLOGY DEPARTMENT CHAIR COVID-19 Nurse Line Screening ASSESSMENT Region Select appropriate region: : [place] Age Pathway Select approprite pathway: : Adult Have you had close contact* with a person who has a LABORATORY CONFIRMED case of COVID-19 in the past 14 days?: No (Continue Screening) In the last 48 hours, have you had a fever* OR symptoms that are unrelated to a preexisting illness?: New cough, New sore throat Do you have any of the following [...] Screening) Symptom Onset Date of symptom onset: 06/23/20 Testing Recommendation Endpoint Is testing recommended? : Recommended to test PLAN Endpoint recommendation: Screening positive, testing indicated, advised to be swabbed for COVID-19 Only , sent to [facility] located at [address] [place] [address]. The entrance is on the north side of the building. You must call [phone] during the hours of 7am to 6 pm (M-F) or 8am to 4 pm (Sat and Sun) for an appointment time. You can also schedule via your Patient Online Services account. Testing hours are9 am to 5 pm (M-F) and 9 am to 1 pm (Sat and Sun).When you arrive at the testing site: Remain in your vehicle and check-in by phone using the same appointment line number. and Please avoid using publictransportation per CDC recommendation. If you do not have personal transportation please self-quarant ine until a personal transportation option is available. and Provided instruction to quarantine for 14 days from the last contact exposure to a confirmed COVID-19 case and testing is recommended. The best time to test is 5-7 days after last contact with an infected individual in order to have the best chance of detecting infection. If you are unsure of your last contact, or would like testing now, wecan perform testing now. Even if your test is negative, you should continue to follow official public health quarantine recommendations. Contact your primary care team with any new symptoms. Care Points: -Wash hands frequently with soap and water for at least 20 seconds -If soap and water are not available, use a hand air export logistics manager -Avoid touching your eyes, nose and mouth. [...] any new or worsening symptoms. Symptomatic Carepoints: Separate yourself from others and stay in a specific sick room if able. Avoid sharing personal or household items. Rest. Hydrate. Take Acetaminophen/Ibuprofen as needed to control fever and muscles aches. Use over the counter medications as needed for other symptoms. Education: Patient/caregiver able to teach back Patient agreeable to plan of care: Yes The following references were used: [facility] novel coronavirus (COVID- 19) resources Nursing judgement TRONICS TECHNOLOGY DEPARTMENT CHAIR documented in this encounter Plan of Treatment Not on filedocumented as of this encounter Visit Diagnoses Not on filedocumented in this encounter Additional Health Concerns Assessment Noted Time PHQ-9 Depression Total Score: 8 06/24/2020 6:13 PM ELECTRONICS TECHNOLOGY DEPARTMENT CHAIR documented as of this encounter Care Teams Jigger Crown Pouncing Machine Operator Relationship Specialty Start Date End Date Domonique Jones APRN, C.N.P., D.N.P. PCP - General 10/19/16 [address], [place] [address] documented as of this encounter
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
--- OUTSIDE RECORDS SUMMARY | 2021-12-14 01:29 | XMS_ITS | Encounter Summary ---
:1990 Author Organization [facility] Address [address] [place] [address] Care Team Providers Name Role Phone Domonique Jones APRN, C.N.P., D.N.P. Primary Care Provider Reason for Visit Reason Comments Follow-up sertraline Other discuss test results Outpatient (Routine) - Closed Specialty Diagnoses / Procedures Referred By Contact Refer red To Contact Video Medicine Diagnoses Anxiety Depression Major One Episode Moderate (HCC) Prabha Benavides APRN, [facility] C.N.P. [address] [place] [address] Referral ID Status Reason Start Date Expiration Date Visits Requ ested Visits Authorized [id number] Closed 04/14/2020 04/14/2021 1 1 Encounter Details Date Type Department Care Team Description 05/17/2020 Telemedicine Department of Family Prabha Benavides, In fertility Female (Primary Dx); Medicine, [place] SERGE, C.N.P. Anxiety; Clinic, in [place], [address] Depression Major One Episode Moderate (H CC) [place] [address] [address] [place] [phone] [address] (Work) [phone] Social History Tobacco Use Types Packs/Day Years [...] week 03/05/2021 How often do you attend shinto or shinto services? Never 03/05/2021 Do you belong to any clubs or organizations such as shinto N o 03/05/2021 groups, unions, fraternal or [...] have completed or the highest Rani, MEd, SUBWAREHOUSE SUPERVISOR, MARLEN) degree you have received? Sex Assigned at Date Recorded Female 01/16/2018 3:45 PM CDT documented as of this encounter Progress Notes Prabha Benavides, SERGE, C.N.P. - 05/17/2020 1:30 PM CST SUBJECTIVE CHIEF COMPLAINT / REASON FOR VISIT Video visit psych and lab follow-up HISTORY OF PRESENT ILLNESS Claudia Maradiaga is a pleasant 30 y.o. female who presents to the clinic today via video for labresults discussion and depression/anxiety medication discussion. Patient was seen in April and initiated on 25 mg of Zoloft daily for 7 days and then increase to 50 mg daily. She states she did not increase to 50 mg previously as her symptoms had significantly improved. Patient states she has noticed significant improvement in her symptoms. She feels as though she can manage her days much more efficiently and effectively. Her sleep is improved and she states she is waking much more well rested. She does have a couple episodes of waking with anxious thoughts and a racing heart a couple times a week. She is wondering about increasing the dosage to help eliminate symptoms. At the April visit we ordered labs to be drawn with the timing of her menstrual cycle for infertility. Initial labs came back within normal limits and we are awaiting labs that will be drawn the week prior to her menstrual cycle. At this time her has not pursued testing himself. They plan to wait for further testing for him until all of her lab work is back. There are no further concerns at this time. The following screenings were completed: PHQ-2 Score: 1 REVIEW OF SYSTEMS Psychiatric/Behavioral: See HPI. The following systems were negative: Constitutional, GI CURRENT MEDICATIONS Current Outpatient Medications Medication Sig Dispense Refill ??? acetaminophen (for_TYLENOL) 325 mg tablet Tylenol See Instructions, PO ??? pimecrolimus (ELIDEL) 1 % cream Apply 1 application topically 2 (two) times a day. Patient stated she uses as needed ??? [id number] ATNR-XBOTU-XAL ORAL Take by mouth. ??? UNABLE TO FIND Patient uses shakeology ??? vit B comp no.9-usbeg-L-biotin 1-60-300 mg-mg-mcg tablet Take by mouth. ??? sertraline (ZOLOFT) 50 mg tablet Take 1 tablet (50 mg total) by mouth daily. 90 tablet 3 No current facility-administered medications for this visit. ALLERGIES / CONTRAINDICATIONS Allergies Allergen Reactions ??? Alum-Mag Hydroxide-Simeth Rash ??? Aluminum-Magnesium Hydroxide Hives ??? Amoxicillin Rash and GI intolerance rash nausea ??? Azithromycin Rash ??? Lidocaine Rash and Hives Patient Active Problem List Diagnosis ??? Melanoma Family History ??? Nasal Septoplasty Status Post ??? Sprue Celiac Family History ??? Abnormal Pap Smear Cervix ??? Degeneration Disc Thoracolumbar OBJECTIVE VITAL SIGNS [facility] 05/12/2020 -video visit PHYSICAL EXAMINATION General: Alert and oriented. Patient is in no distress. Capable of full communication without difficulty. Patient is polite and cooperative. Appropriately dressed and normal hygiene. DIAGNOSTICS None additional at this time ASSESSMENT / PLAN Diagnosis Plan 1. Infertility Female 2. Anxiety Video anyplace visit 3. Depression Major One Episode Moderate (HCC) Video anyplace visit PLAN: -labs previously ordered to conclude fertility workup -patient will increase Zoloft 50 mg daily -follow-up 2 weeks via portal or sooner if intolerable side effects Patient was understanding of and agreeable to the plan of care. Prabha Benavides APRN-ANTWAN I personally spent a total of 18 minutes in twq-jaub-bp-face time performing a review of the record and/or discussion with the patient/caregiver as described above. Consult conducted via real-time audio/video technology by Prabha Benavides APRN, C.N.P. in [facility] to the patient in home. HER documented in this encounter Plan of Treatment Not on filedocumented as of this encounter Visit Diagnoses Diagnosis Infertility Female - Primary Anxiety Depression Major One Episode Moderate (H CC) documented in this encounter Additional Health Concerns Assessment Noted Time PHQ-9 Depression Total Score: 14 04/14/2020 10:[address] documented as of this encounter Care Teams Line Appliance Assembler Relationship Specialty Start Date End Date Domonique Jones APRN, C.N.P., D.N.P. PCP - General 10/19/16 [address] [place] [address] documented as of this encounter
--- OUTSIDE RECORDS SUMMARY | 2021-12-14 01:29 | XMS_ITS | Encounter Summary ---
:1990 Author Organization [facility] Address [address] [place] [address] Care Team Providers Name Role Phone Domonique Jones APRN, C.N.PSymone, D.N.P. Primary Care Provider Encounter Details Date Type Department Care Team Description 06/10/2020 Clinical Communication Department of Domonique Ames [facility], [place] Guerrero APRN, C.N.PSymone, Clinic, in [place].N.PSymone [place] [address] [facility] [place] [phone] Social History Tobacco Use Types Packs/Day Years [...] How often do you attend restorationist or nondenominational services? Never 03/05/2021 Do you belong to [...] have completed or the highest Rani, MEd, FLIGHT RESERVATIONS MANAGER, MARLEN) degree you have received? Sex Assigned at Date Recorded Female 01/16/2018 3:45 PM CDT documented as of this encounter Plan of Treatment Not on filedocumented as of this encounter Visit Diagnoses Not on filedocumented in this encounter Additional Health Concerns Infection Onset Date Last Indicated Resolved Time COVID19 Pending 06/24/2020 06/24/2020 06/25/2020 12:06 AM DIRECTOR SOCIAL Assessment Noted Time PHQ-9 Depression Total Score: 14 04/14/2020 10:[address] documented as of this encounter Care Teams Electronic Tech Relationship Specialty Start Date End Date Domonique Jones APRN, C.N.P., D.N.P. PCP - General 10/19/[address] [place] [address] documented as of this encounter
--- OUTSIDE RECORDS SUMMARY | 2021-12-14 01:29 | XMS_ITS | Encounter Summary ---
:1990 Author Organization [facility] Address [address] [place] [address] Care Team Providers Name Role Phone Domonique Jones APRN, C.N.P., D.N.P. Primary Care Provider Encounter Details Date Type Department Care Team Description 06/24/2020 Admin Visit Department of Family Medicine, [address] [place] [address] [facility] [phone] Social History Tobacco Use Types Packs/Day Years [...] week 03/05/2021 How often do you attend advent or catholic services? Never 03/05/2021 Do you belong to any clubs or organizations such as advent N o 03/05/2021 groups, unions, fraternal or [...] have completed or the highest Rani, MEd, PRODUCTION CONTROL ANALYST, MARLEN) degree you have received? Sex Assigned at Date Recorded Female 01/16/2018 3:45 PM CDT documented as of this encounter Plan of Treatment Not on filedocumented as of this encounter Visit Diagnoses Not on filedocumented in this encounter Additional Health Concerns Infection Onset Date Last Indicated Resolved Time COVID19 Pending 06/24/2020 06/24/2020 06/25/2020 12:06 AM OUTSIDE SALES ASSOCIATE Assessment Noted Time PHQ-9 Depression Total Score: 8 06/24/2020 6:13 PM OUTSIDE SALES ASSOCIATE documented as of this encounter Care Teams Realty Loan Specialist Relationship Specialty Start Date End Date Domonique Jones APRN, C.N.P., D.N.P. PCP - General 10/19/[address], [place] [address] documented as of this encounter
--- OUTSIDE RECORDS SUMMARY | 2021-12-14 01:29 | XMS_ITS | Encounter Summary ---
:1990 Author Organization [facility] Address [address] [place] [address] Care Team Providers Name Role Phone Domonique Jones APRN, C.N.PSymone, D.N.P. Primary Care Provider Encounter Details Date Type Department Care Team Description 09/28/2020 Clinical Communication Department of Domonique Ames [facility], [place] Guerrero APRN, C.N.PSymone, Clinic, in [place].N.PSymone [place] [address] [facility] [place] [phone] Social History Tobacco Use Types Packs/Day [...] week 03/05/2021 How often do you attend mandaeism or druze services? Never 03/05/2021 Do you belong to any clubs or organizations such as mandaeism N o 03/05/2021 groups, unions, fraternal or [...] have completed or the highest Rani, MEd, BOWLING ALLEY FLOORS INSTALLER, MARLEN) degree you have received? Sex Assigned at Date Recorded Female 01/16/2018 3:45 PM CDT documented as of this encounter Miscellaneous Notes Telephone Encounter - Barbara Maldonado L.P.N. - 09/29/2020 8:57 AM CDT Patient notified and transferred to scheduling Telephone Encounter - Domonique Jones APRN, C.N.P., D.N.P. - 09/28/2020 6:56 PM CDT Sent her a portal message back. Please call her tomorrow to be sure she read it. It is easier for meto portal than call. Telephone Encounter - Faby Mittal - 09/28/2020 3:39 PM CDT Reason for Communication: Patient is calling in she stated she was seen in clinic today and wasn't really satisfied with the provider she saw. Patient also stated she would like Domonique or her nurse to look over the chart notes from that visit and give her a call back. Please call the patient back. Current Can Nursing/Provider leave a detailed message?: yes Did the patient refuse triage through Nurse line? (for symptom based concerns): n/a Action Needed: Please call the patient back. Name of Medication (if relevant): n/a documented in this encounter Plan of Treatment Not on filedocumented as of this encounter Visit Diagnoses Not on filedocumented in this encounter Additional Health Concerns Assessment Noted Time PHQ-9 Depression Total Score: 8 06/24/2020 6:13 PM QUALITY PROCESS LEAD documented as of this encounter Care Teams Intermediate Card Tender Relationship Specialty Start Date End Date Domonique Jones APRN, C.N.P., D.N.P. PCP - General 10/19/[address] [address] documented as of this encounter
--- OUTSIDE RECORDS SUMMARY | 2021-12-14 01:29 | XMS_ITS | Encounter Summary ---
:1990 Author Organization [facility] Address [address] [place] [address] Care Team Providers Name Role Phone Domonique Jones APRN, C.N.PSymone, D.N.P. Primary Care Provider Reason for Visit Reason Comments Med Refill Encounter Details Date Type Department Care Team Description 04/26/2018 Refill Department of Family Medicine, Domonique Jones APRN, Med Refill [facility], in [place], C. N.P., D.N.P. [place] [address] [address] [place] [address] [place] [address] [phone] Social History Tobacco Use Types Packs/Day Years [...] week 03/05/2021 How often do you attend mormonism or taoism services? Never 03/05/2021 Do you belong to any clubs or organizations such as mormonism N o 03/05/2021 groups, unions, fraternal or [...] or slept in a usp (including now)? Sex Assigned at Date Recorded Female 01/16/2018 3:45 PM CDT documented as of this encounter Plan of Treatment Not on filedocumented as of this encounter Visit Diagnoses Not on filedocumented in this encounter Care Teams Freight And Passenger Agent Relationship Specialty Start Date End Date Domonique Jones APRN, C.N.P., D.N.P. PCP - General 10/19/16 [address], [place] [address] documented as of this encounter
--- OUTSIDE RECORDS SUMMARY | 2021-12-14 01:29 | XMS_ITS | Encounter Summary ---
:1990 Author Organization [facility] Address [address] [place] [address] Care Team Providers Name Role Phone Domonique Jones APRN, C.N.PSymone, D.N.P. Primary Care Provider Encounter Details Date Type Department Care Team Description 04/16/2020 Clinical Communication Department of Domonique Ames [facility], [place] Guerrero APRN, C.N.PSymone, Clinic, in [place].N.PSymone [place] [address] [place], [place] [phone] Social History Tobacco Use Types Packs/Day Years [...] week 03/05/2021 How often do you attend zoroastrian or roman catholic services? Never 03/05/2021 Do you belong to any clubs or organizations such as zoroastrian N o 03/05/2021 groups, unions, fraternal or [...] have completed or the highest Rani, MEd, PHYSICIAN ADVISOR, MARLEN) degree you have received? Sex Assigned at Date Recorded Female 01/16/2018 3:45 PM CDT documented as of this encounter Miscellaneous Notes Telephone Encounter - Evy Araujo, L.P.N. - 04/16/2020 1:42 PM CST Patient will cancel the lab appt for today and keep the one on 04/26/20 TO GRADER Telephone Encounter - Prabha Benavides APRN, C.N.P. - 04/16/2020 12:55 PM TOMATO GRADER If she thinks this is the start of her menses early I might suggest holding off as ideally labs willbe drawn 1 week prior. I would suggest cancelling and rescheduling for next month 1 week prior. In the meantime her could consider testing and visit with his primary care provider to set this up. TO GRADER Telephone Encounter - Mckenzie Reyes - 04/16/2020 12:32 PM CST Reason for Communication: Patient calling in and states that she is to come in today at 3:10 pm to have some labs drawn that Prabha Benavides ordered. Patient states that Prabha wanted these labs drawn aweek before her menstrual period and she is spotting lightly today so would like to know if she should still come in for those labs. Please advise. Current Can Nursing/Provider leave a detailed message?: yes Did the patient refuse triage through Nurse line? (for symptom based concerns): n/a Action Needed: Call back Name of Medication (if relevant): TO GRADER documented in this encounter Plan of Treatment Not on filedocumented as of this encounter Visit Diagnoses Not on filedocumented in this encounter Additional Health Concerns Assessment Noted Time PHQ-9 Depression Total Score: 14 04/14/2020 10:[address] documented as of this encounter Care Teams Sql Database Administrator Relationship Specialty Start Date End Date Domonique Jones APRN, C.N.P., D.N.P. PCP - General 10/19/16 [address] [place] [address] documented as of this encounter
--- OUTSIDE RECORDS SUMMARY | 2021-12-14 01:29 | XMS_ITS | Encounter Summary ---
:1990 Author Organization [facility] Address [address] [place] [address] Care Team Providers Name Role Phone Domonique Jones APRN, C.N.P., D.N.P. Primary Care Provider Encounter Details Date Type Department Care Team Description 08/24/2020 Orders Only [facility] PCP [facility] Sa burke Strange M.D. [address] [place], [place] [phone] (Wo rk) Social History Tobacco Use Types [...] How often do you attend shinto or congregational services? Never 03/05/2021 Do you belong to [...] have completed or the highest Rani, MEd, IP LITIGATION PARALEGAL, MARLEN) degree you have received? Sex Assigned at Date Recorded Female 01/16/2018 3:45 PM CDT documented as of this encounter Plan of Treatment Not on filedocumented as of this encounter Visit Diagnoses Not on filedocumented in this encounter Additional Health Concerns Assessment Noted Time PHQ-9 Depression Total Score: 8 06/24/2020 6:13 PM SUPERVISOR SEAMING documented as of this encounter Care Teams Prepress Specialist Relationship Specialty Start Date End Date Domonique Jones APRN, C.N.P., D.N.P. PCP - General 10/19/[address] [place] [phone] documented as of this encounter
--- OUTSIDE RECORDS SUMMARY | 2021-12-14 01:29 | XMS_ITS | Encounter Summary ---
:1990 Author Organization [facility] Address [address] [place] [address] Care Team Providers Name Role Phone Domonique Jones APRN, C.N.P., D.N.P. Primary Care Provider Reason for Referral Outpatient (Routine) - Closed Specialty Diagnoses / Procedures Referred By Contact Refer red To Contact Psychology Diagnoses Anxiety Depression Major One Episode Moderate (HCC) Prabha Benavides APRN, C.N.P. [address], [place] [address] Referral ID Status Reason Start Date Expiration Visits Visits Date Requested Authorized [id number] Closed Patient 04/14/2020 04/14/2021 1 1 Preference SCAPE NURSERYMAN Outpatient (Routine) - Closed Specialty Diagnoses / Procedures Referred By Contact Refer red To Contact Video Medicine Diagnoses Anxiety Depression Major One Episode Moderate (HCC) Prabha Benavides APRN, [facility] C.N.P. [address] [place] [phone] Referral ID Status Reason Start Date Expiration Date Visits Requ ested Visits Authorized [id number] Closed 04/14/2020 04/14/2021 1 1 SCAPE NURSERYMAN Reason for Visit Reason Comments Anxiety ongoing and impacting sleep, stomach,work Other Discuss fertility options Appointment Request (Routine) - Closed Specialty Diagnoses / Procedures Referred By Contact Refer red To Contact Family Medicine Referral ID Status Reason Start Date Expiration Date Visits Requ ested Visits Authorized [id number] Closed 04/06/2020 04/06/2021 1 1 Encounter Details Date Type Department Care Team Description 04/14/2020 Office Visit Department of Family Prabha Benavides In fertility Female (Primary Dx); Medicine, [place] SERGE C.NSymonePSymone Anxiety; Clinic, [facility], [address] Depression Major One Episode Moderate (H CC) [place], [place] [address] [address] [place] [phone] (Work) [phone] Social History Tobacco Use Types Packs/Day Years [...] often do you attend latter day or muslim services? Never 03/05/2021 Do you [...] of school Master's degree (e.g., Candice Nieves, , 01/30/2019 you have completed or the highest Rani, MEd, HUMAN RESOURCES BENEFITS MANAGER, MARLEN) degree you have received? Sex Assigned at Date Recorded Female 01/16/2018 3:45 PM CDT documented as of this encounter Last Filed Vital Signs Vital Sign Reading Time Taken Comments Blood Pressure 102/66 04/14/2020 10:19 AM LANDSCAPE NURSERYMAN Pulse 74 04/14/2020 10:19 AM LANDSCAPE NURSERYMAN Temperature 36.7 ??C (98.1 ??F) 04/14/2020 10:19 AM LANDSCAPE NURSERYMAN Respiratory Rate - - Oxygen Saturation - - Inhaled Oxygen Concentration - - Weight 56.9 kg (125 lb 7.1 oz) 04/14/2020 10:19 AM LANDSCAPE NURSERYMAN Height - - Body Mass Index 18.58 01/30/2019 3:54 PM CDT documented in this encounter Patient Instructions Patient InstructionsKimberly Read R.N. - 04/14/2020 10:30 AM CST Started on Sertraline. Take 25 mg for 7 days then can go up to 50 mg daily. Follow up in about a month. Referral for outside therapy. Labs for infertility: 1. FSH and Estradiol on Day 3 2. LH 1 week before projected menstrual period, along with TSH, HgBA1C, testosterone. SCAPE NURSERYMAN documented in this encounter Progress Notes Prabha Benavides, SERGE, C.N.P. - 04/14/2020 10:30 AM CST SUBJECTIVE CHIEF COMPLAINT / REASON FOR VISIT Anxeity HISTORY OF PRESENT ILLNESS Claudia Maradiaga is a pleasant 30 y.o. female who presents to the clinic today for evaluation ofanxiety. She states that she has always been somewhat anxious and Type A, but feels that over the last 3-4 months this has gotten worse. 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 She states that she has a difficult time relaxing. She is having a difficult time sleeping at night,and finds herself waking up 3-4 times per night. When she does wake up she has focused on her work in checking her emails. She does endorse a decreased appetite and restless legs as well. She does endorse palpitations and shortness of breath when she has episodes of anxiety. These are short-lived and she is able to calm herself down. Recently she did begin a nighttime meditation routine which she feels has helped. Claudia has triedtherapy in the past, but has had a difficult time finding a therapist that she has connected with. In addition, Claudia and her have been trying to conceive for almost 2 years. She is wondering about what the next steps are. She does have regular menstrual periods, with cycles every 28-31 days, but last 3-5 days. She has tried ovulation kits and does have an mery on her phone that helps herkeep track. There are no further concerns at this time. REVIEW OF SYSTEMS Respiratory: Positive for dyspnea. Cardiovascular: Positive for rapid or fluttering heart beat. Psychiatric/Behavioral: Positive for little interest or pleasure in doing things over past two weeks, feeling down, depressed, or hopeless over past two weeks, not being able to stop or control worrying over past two weeks and feeling nervous, anxious, or on edge in past two weeks. The following systems were negative: Skin, Eyes, ENT, GI, , Hematologic, Neuro CURRENT MEDICATIONS Current Outpatient Medications Medication Sig Dispense Refill ??? pimecrolimus (ELIDEL) 1 % cream Apply 1 application topically 2 (two) times a day. Patient stated she uses as needed ??? [id number] ORAL Take by mouth. ??? UNABLE TO FIND Patient uses shakeology ??? vit B comp no.0-syadr-V-biotin 1-60-300 mg-mg-mcg tablet Take by mouth. ??? acetaminophen (for_TYLENOL) 325 mg tablet Tylenol See Instructions, PO ??? sertraline (ZOLOFT) 25 mg tablet Take 1 tablet (25 mg total) by mouth daily. 25 mg daily for first 7 days then 50 mg (2 tabs) daily thereafter. 30 tablet 1 No current facility-administered medications for this visit. [...] ??? Degeneration Disc Thoracolumbar OBJECTIVE VITAL SIGNS BP 102/66 (BP Location: Right arm, Patient Position: Sitting, Cuff Size: Regular) Pulse 74 Temp 36.7 ??C (Temporal) Wt 56.9 kg LMP 03/24/2020 BMI 18.58 kg/m?? PHYSICAL EXAMINATION General: Alert and oriented. Patient is in no distress. Capable of full communication without difficulty. Patient is polite and cooperative. Appropriately dressed and normal hygiene. Heart: Regular rate and rhythm. No murmurs, gallops or rubs noted. Lungs: Clear to auscultation bilaterally. No expiratory wheeze. No accessory muscles of respiration noted. Psych: Answering questions appropriately, good eye contact. ASSESSMENT / PLAN #1 Infertility Female We will begin the workup by obtaining an LH, testosterone, hemoglobin A1c, and TSH 1 week prior to anticipated menstrual cycle. In addition we will obtain FSH and estradiol levels on day 3 of menstrualcycle. We did inform Claudia that we could arrange for consult with reproductive endocrinology pending the results of her lab work. #2 Anxiety #3 Depression Major One Episode Moderate (HCC) We will treat with 25 mg of sertraline for 7 days, with up titration to 50 mg. We did discuss the possible side effects associated with this medication. We have arranged for follow-up in 1 month via video. Advise patient to contact his prior with any intolerance of medication. Patient was understanding of and agreeable to the plan of care. Patient was primarily seen by Preethi, CLINICAL DATA MANAGEMENT MANAGER-S and I agree with the plan of care at this time. Prabha Benavides APRN-SOAP SLABBER SCAPE NURSERYMAN documented in this encounter Plan of Treatment Scheduled Referrals Name Type Priority Associated Diagnoses Order S chedule Video anyplace Outpatient Referral Routine Anxiety Expected: visit Depression Major One 021 Episode Moderate (Approximat e), (HCC) Expires: 04/14/2023 documented as of this encounter Results Progesterone Level (05/14/2020 7:46 AM LANDSCAPE NURSERYMAN) P athologist Signature Progesterone, S 0.46 See Note* 05/15/2020 DTL ng/mL 7:57 AM LANDSCAPE NURSERYMAN Comment: Reference intervals are central 90th % o f healthy population. Follicular phase: <=0.89 ng/mL Ovulation: <=12 ng/mL Luteal phase: 1.8-24 ng/ml Post-menopausal: <0.20 ng/mL 1st Trimester: 11-44 ng/mL 2nd Trimester: 25-83 ng/mL 3rd Trimester: 58-214 ng/mL Specimen Anatomical Collection Method Collection Time Receive d Time (Source) Location / / Volume Laterality Blood (Blood, 05/14/2020 7:46 AM 05/15/19 7:30 Venous) LANDSCAPE NURSERYMAN AM LANDSCAPE NURSERYMAN Prabha Benavides APRN, C.N.P. LAB BLOOD ADD-ON Performing Organization Address City/State/ZIP Code Phon e Number [facility] - [address] [place], [place] [address] [facility] [place] [address] Laboratories-[facility] [address] Estradiol Free, Serum (includes Estradiol and SHBG)-Sent Out Lab (05/14/2020 7:46 AM LANDSCAPE NURSERYMAN) athologist Signature Estradiol, 50 pg/mL 05/25/2020 [facility] Serum 9:05 PM LANDSCAPE NURSERYMAN Comment: This test was developed and its performa nce characteristics determined by [facility]. It has not been c leared or approved by the Food and Drug Administration. Reference Range: Adult Females Follicular: 30 - 100 Luteal: 70 - 300 Postmenopausal: <15 Free Estradiol, Percent 1.5 % 05/25/2020 9:05 PM LANDSCAPE NURSERYMAN [facility] Comment: This test was developed and its performa nce characteristics determined by [facility]. It has not been c leared or approved by the Food and Drug Administration. Reference Range: Adult Females: 1.6 - 3.6 Free Estradiol, Serum 0.75 pg/mL 05/25/2020 9:05 PM LANDSCAPE NURSERYMAN [facility] Comment: Reference Range: Adult Females: 0.6 - 7.1 Sex Hormone Binding Globulin (SHBG) 77.4 nmol/L 05/07 9:05 PM LANDSCAPE NURSERYMAN [facility] Comment: Reference Range: Pubertal: 36.0 - 125.0 20 - 49y: 24.6 - 122.0 >49y: ? 17.3 - 125.0 Specimen Anatomical Collection Method Collection Time Receive d Time (Source) Location / / Volume Laterality Blood (Blood, 05/14/2020 7:46 AM 05/15/19 Venous) LANDSCAPE NURSERYMAN 12:21 PM LANDSCAPE NURSERYMAN Prabha Benavides APRN, Nick.N.P. LAB BLOOD NON ADD-ON Performing Organization Address City/State/[facility] Phon e Number [facility] [address] [place] [address] END [facility] [address] Follicle-Stimulating Hormone (FSH), Serum (05/14/2020 7:46 AM LANDSCAPE NURSERYMAN) athologist Signature Follicle-Stim 6.7 IU/L 05/15/2020 DTL Hormone (FSH), 7:57 AM LANDSCAPE NURSERYMAN S Comment: ----REFERENCE VALUE---- Premenopausal: 2.9-14.6 IU/L (Follicular) 4.7-23.2 IU/L (Midcycle) 1.4-8.9 IU/L (Luteal) Postmenopausal: 16.0-157.0 IU/L Specimen Anatomical Collection Method Collection Time Receive d Time (Source) Location / / Volume Laterality Blood (Blood, 05/14/2020 7:46 AM 05/15/19 7:30 Venous) LANDSCAPE NURSERYMAN AM LANDSCAPE NURSERYMAN Prabha Benavides APRN, C.N.P. LAB BLOOD ADD-ON Performing Organization Address City/State/ZIP Code Phon e Number [facility] - [address] [place], [place] [address] [facility] [place] [address] Laboratories-[facility] [address] Prolactin (05/14/2020 7:46 AM LANDSCAPE NURSERYMAN) athologist Signature Prolactin Total 16.5 4.8 - 23.3 05/15/2020 DTL ng/mL 7:57 AM LANDSCAPE NURSERYMAN Comment: ----ADDITIONAL INFORMATION---- The testing method is an electrochemilum inescence assay manufactured by [employer] and performed on the Priscilla system. Values obtained with different assay met hods or kits may be different and cannot be used inte rchangeably. Test results cannot be interpreted as ab solute evidence for the presence or absence of malignant disease. Specimen Anatomical Collection Method Collection Time Receive d Time (Source) Location / / Volume Laterality Blood (Blood, 05/14/2020 7:46 AM 05/15/19 7:30 Venous) LANDSCAPE NURSERYMAN AM LANDSCAPE NURSERYMAN Prabha Benavides APRN, C.N.P. LAB BLOOD ADD-ON Performing Organization Address City/State/ZIP Code Phon e Number [facility] - [address] [place], [place] [address] [facility] [place] [address] Laboratories-[facility] [address] documented in this encounter Visit Diagnoses Diagnosis Infertility Female - Primary Anxiety Depression Major One Episode Moderate (H CC) documented in this encounter Additional Health Concerns Assessment Noted Time PHQ-9 Depression Total Score: 14 04/14/2020 10:[address] documented as of this encounter Care Teams Heading Machine Operator Relationship Specialty Start Date End Date Domonique Jones APRN C.N.P., D.N.P. PCP - General 10/19/[address] [place] [address] documented as of this encounter
--- OUTSIDE RECORDS SUMMARY | 2021-12-14 01:29 | XMS_ITS | Encounter Summary ---
:[address] [facility] Address [address] [place] [address] Care Team Providers Name Role Phone Domonique Jones APRN, C.N.P., D.N.P. Primary Care Provider Reason for Visit Reason Comments Abdominal Pain c/o LUQ pain/discomfort afte r eating;nausea x 1 wk per triage Appointment Request (Routine) - Closed Specialty Diagnoses / Procedures Referred By Contact Refer red To Contact Family Medicine Referral ID Status Reason Start Date Expiration Date Visits Requ ested Visits Authorized [id number] Closed 09/24/2020 09/24/2021 1 1 Encounter Details Date Type Department Care Team Description 09/24/2020 Office Visit Department of Rogelio Aponte [facility] Medicine, [facility], in [place], [address] (Primary Dx) [place] [address] [address] [place] [phone] (Work) [phone] Social History Tobacco Use Types Packs/Day Years [...] How often do you attend nondenominational or hoahaoism services? Never 03/05/2021 Do you belong to [...] place to sleep or slept in a nursing home (including now)? Education Answer Date Recorded What is the highest level of school Master's degree (e.g., M A, MS, 01/30/2019 you have completed or the highest Rani, MEd, UNION CARPENTER, MARLEN) degree you have received? Sex Assigned at Date Recorded Female 01/16/2018 3:45 PM CDT documented as of this encounter Last Filed Vital Signs Vital Sign Reading Time Taken Comments Blood Pressure 117/68 09/24/2020 3:51 PM CDT Pulse 53 09/24/2020 3:51 PM CDT Temperature 36.3 ??C (97.3 ??F) 09/24/2020 3:51 PM CDT Respiratory Rate - - Oxygen Saturation - - Inhaled Oxygen Concentration - - Weight 58.1 kg (128 lb 1.4 oz) 09/24/2020 3:51 PM CDT Height - - Body Mass Index 18.97 01/30/2019 3:54 PM CDT documented in this encounter Progress Rogelio Villegas M.D. - 09/24/2020 4:00 PM CDT SUBJECTIVE CHIEF COMPLAINT/REASON FOR VISIT Claudia Maradiaga is a 30 y.o. female that presents with left upper quadrant abdominal pain was somewhat crampy nature that has been occurring for about a week, noticed for about 25-3 minutes after eating. It does not seem to matter what she has for food. Bowel movements have not been correlating with these episodes of pain so it is unclear whether this would be helpful. No urinary symptoms. No previous episodes of this nature. She did have some stress at work last week that may have precipitatedthis but that is not definitive. CURRENT MEDICATIONS Current Outpatient Medications: ??? acetaminophen (for_TYLENOL) 325 mg tablet, Tylenol See Instructions, PO, Disp: , Rfl: ??? pimecrolimus (ELIDEL) 1 % cream, Apply 1 application topically 2 (two) times a day. Patient stated she uses as needed , Disp: , Rfl: ??? [id number]-[facility] ORAL, Take by mouth., Disp: , Rfl: ??? sertraline (ZOLOFT) 50 mg tablet, Take 1 tablet (50 mg total) by mouth daily., Disp: 90 tablet, Rfl: 3 ??? UNABLE TO FIND, Patient uses shakeology, Disp: , Rfl: ALLERGIES/CONTRAINDICATIONS Allergies Allergen Reactions ??? Alum-Mag Hydroxide-Simeth Rash ??? Aluminum-Magnesium Hydroxide Hives ??? Amoxicillin Rash and GI intolerance rash nausea ??? Azithromycin Rash ??? Lidocaine Rash and Hives OBJECTIVE Vitals: 09/24/20 1551 BP: 117/68 Pulse: (!) 53 Temp: 36.3 ??C PHYSICAL EXAMINATION General Appearance: No acute distress. Chest: Breathing easily without accessory muscle use or cough. Abdomen: Normoactive bowel sounds. Tenderness localizing to the epigastric/left upper quadrant on palpation. No peritoneal signs are noted however there is tympany across the upper abdomen which seems to be most pronounced in the left upper quadrant. Back: CVA areas are not tender on exam. DIAGNOSTICS Imaging and lab evaluation is considered and discussed but ultimately declined for now. ASSESSMENT / PLAN Abdominal discomfort which is most likely secondary to constipation type effect as discussed. Conservative measures are reviewed and written out. All questions are discussed and answered. Patient voices good understanding and agreement with our plan. Follow-up if not improving as expected or otherwiseas needed. documented in this encounter Plan of Treatment Not on filedocumented as of this encounter Visit Diagnoses Diagnosis Tenderness Left Upper Quadrant Abdominal - Primary documented in this encounter Additional Health Concerns Assessment Noted Time PHQ-9 Depression Total Score: 8 06/24/2020 6:13 PM SCHOOL OCCUPATIONAL THERAPIST documented as of this encounter Care Teams Keyboard Teacher Relationship Specialty Start Date End Date Domonique Jones APRN, C.N.P., D.N.P. PCP - General 10/19/[address] [id number] documented as of this encounter
--- OUTSIDE RECORDS SUMMARY | 2021-12-14 01:29 | XMS_ITS | Encounter Summary ---
:1990 Author Organization [facility] Address [address] [place] [address] Care Team Providers Name Role Phone Domonique Jones APRN, C.N.P., D.N.P. Primary Care Provider Encounter Details Date Type Department Care Team Description 05/14/2020 Hospital Encounter Department of Prabha Benavides Female Laboratory Medicine LSERGE, C.N .P. in [place], [address] [place], [place] [address] [address] [place], [place] [phone] [address] (Work) [phone] Social History Tobacco Use Types Packs/Day Years [...] week 03/05/2021 How often do you attend confucianist or faith services? Never 03/05/2021 Do you belong to any clubs or organizations such as confucianist N o 03/05/2021 groups, unions, fraternal or [...] have completed or the highest Rani, MEd, RESIDENTIAL MONITOR, MARLEN) degree you have received? Sex Assigned at Date Recorded Female 01/16/2018 3:45 PM CDT documented as of this encounter Medications at Time of Discharge Medication Sig Dispensed Refills Start Date End Date [id number] Take by mouth. 0 GNGZ-[id number]-YWV ORAL UNABLE TO FIND Patient uses 0 shakeology acetaminophen Tylenol See 0 04/29/2016 10/12/2020 (for_TYLENOL) 325 mg Instructions, PO tablet pimecrolimus (ELIDEL) 1 Apply 1 application 0 04/201603/21/2021 % cream topically 2 (two) times a day. Patient stated she uses as needed sertraline (ZOLOFT) 25 Take 1 tablet (25 mg 30 tablet 1 01/202005/17/2020 mg tablet total) by mouth daily. 25 mg daily for first 7 days then 50 mg (2 tabs) daily thereafter. vit B comp Take by mouth. 0 09/24/2020 no.2-jlzpx-O-biotin 1-60-300 mg-mg-mcg tablet documented as of this encounter Plan of Treatment Not on filedocumented as of this encounter Procedures Procedure Name Priority Date/Time Associated Diagnosis Comme nts ESTRADIOL FREE, S Routine 05/14/2020 7:46 AM Infertility Femal e Results for this (INCLUDES ESTRADIOL LINE CREWMAN procedur e are in AND SHBG)-SENT OUT the resul ts LAB section. PROLACTIN, S Routine 05/14/2020 7:46 AM Infertility Female Res ults for this LINE CREWMAN procedure are i n the results section. PROGESTERONE, S Routine 05/14/2020 7:46 AM Infertility Female Results for this LINE CREWMAN procedure are i n the results section. FOLLICLE-STIM Routine 05/14/2020 7:46 AM Infertility Female Re sults for this HORMONE (FSH), S LINE CREWMAN procedure a re in the results section. documented in this encounter Results Progesterone Level (05/14/2020 7:46 AM LINE CREWMAN) athologist Signature Progesterone, S 0.46 See Note* 05/15/2020 DTL ng/mL 7:57 AM LINE CREWMAN Comment: Reference intervals are central 90th % o f healthy population. Follicular phase: <=0.89 ng/mL Ovulation: <=12 ng/mL Luteal phase: 1.8-24 ng/ml Post-menopausal: <0.20 ng/mL 1st Trimester: 11-44 ng/mL 2nd Trimester: 25-83 ng/mL 3rd Trimester: 58-214 ng/mL Specimen Anatomical Collection Method Collection Time Receive d Time (Source) Location / / Volume Laterality Blood (Blood, 05/14/2020 7:46 AM 05/15/19 7:30 Venous) LINE CREWMAN AM LINE CREWMAN Prabha Benavides APRN, C.N.P. LAB BLOOD ADD-ON Performing Organization Address City/State/ZIP Code Phon e Number [facility] - [address] [place], [place] [address] [facility] [place] [address] [facility] [address] Estradiol Free, Serum (includes Estradiol and SHBG)-Sent Out Lab (05/14/2020 7:46 AM LINE CREWMAN) athologist Signature Estradiol, 50 pg/mL 05/25/2020 ENDI Serum 9:05 PM LINE CREWMAN Comment: This test was developed and its performa nce characteristics determined by [employer]. It has not been c leared or approved by the Food and Drug Administration. Reference Range: Adult Females Follicular: 30 - 100 Luteal: 70 - 300 Postmenopausal: <15 Free Estradiol, Percent 1.5 % 05/25/2020 9:05 PM LINE CREWMAN ENDI Comment: This test was developed and its performa nce characteristics determined by [facility]. It has not been c leared or approved by the Food and Drug Administration. Reference Range: Adult Females: 1.6 - 3.6 Free Estradiol, Serum 0.75 pg/mL 05/25/2020 9:05 PM LINE CREWMAN ENDI Comment: Reference Range: Adult Females: 0.6 - 7.1 Sex Hormone Binding Globulin (SHBG) 77.4 nmol/L 05/07 9:05 PM LINE CREWMAN ENDI Comment: Reference Range: Pubertal: 36.0 - 125.0 20 - 49y: 24.6 - 122.0 >49y: ? 17.3 - 125.0 Specimen Anatomical Collection Method Collection Time Receive d Time (Source) Location / / Volume Laterality Blood (Blood, 05/14/2020 7:46 AM 05/15/19 Venous) LINE CREWMAN 12:21 PM LINE CREWMAN Prabha Benavides APRN, C.N.P. LAB BLOOD NON ADD-ON Performing Organization Address City/[facility] Phon e Number [facility] [address] [place] [address] [facility] [address] Follicle-Stimulating Hormone (FSH), Serum (05/14/2020 7:46 AM LINE CREWMAN) P athologist Signature Follicle-Stim 6.7 IU/L 05/15/2020 DT Hormone (FSH), 7:57 AM LINE CREWMAN S Comment: ----REFERENCE VALUE---- Premenopausal: 2.9-14.6 IU/L (Follicular) 4.7-23.2 IU/L (Midcycle) 1.4-8.9 IU/L (Luteal) Postmenopausal: 16.0-157.0 IU/L Specimen Anatomical Collection Method Collection Time Receive d Time (Source) Location / / Volume Laterality Blood (Blood, 05/14/2020 7:46 AM 05/15/19 7:30 Venous) LINE CREWMAN AM LINE CREWMAN Prabha Benavides APRN, C.N.P. LAB BLOOD ADD-ON Performing Organization Address City/State/ZIP Code Phon e Number [facility] - [address] [place], [place] [address] [facility] [place] [address] [facility] [address] Prolactin (05/14/2020 7:46 AM LINE CREWMAN) athologist Signature Prolactin Total 16.5 4.8 - 23.3 05/15/2020 DTL ng/mL 7:57 AM LINE CREWMAN Comment: ----ADDITIONAL INFORMATION---- The testing method is [...] (Blood, 05/14/2020 7:46 AM 05/15/19 7:30 Venous) LINE CREWMAN AM LINE CREWMAN Prabha Benavides APRN, C.N.P. LAB BLOOD ADD-ON Performing Organization Address City/State/ZIP Code Phon e Number [facility] - [address] [place] [address] [facility] [place] [address] [facility] [address] [facility] documented in this encounter Visit Diagnoses Diagnosis Infertility Female documented in this encounter Additional Health Concerns Assessment Noted Time PHQ-9 Depression Total Score: 14 04/14/2020 10:[address] documented as of this encounter Care Teams Health Plan Specialist Relationship Specialty Start Date End Date Domonique Jones APRN, C.N.P., D.N.P. PCP - General 10/19/16 [address] [place] [address] documented as of this encounter
--- OUTSIDE RECORDS SUMMARY | 2021-12-14 01:29 | XMS_ITS | Encounter Summary ---
:1990 Author Organization [facility] Address [address] [place] [address] Care Team Providers Name Role Phone Domonique Jones APRN, C.N.P., D.N.P. Primary Care Provider Reason for Visit Reason Comments Gastritis Encounter Details Date Type Department Care Team Description 10/01/2020 Nurse Triage Department of Hi Tejeda, RSymoneNSymone Merg[facility] With [facility] Medicine, [facility], in [address] [place], [place] [address] [place] [address] [place] [address] [phone] Social History Tobacco Use Types Packs/Day Years [...] week 03/05/2021 How often do you attend synagogue or presybeterian services? Never 03/05/2021 Do you belong to any clubs or organizations such as synagogue N o 03/05/2021 groups, unions, fraternal or [...] have completed or the highest Rani, MEd, PIPE FITTER AMMONIA, MARLEN) degree you have received? Sex Assigned at Date Recorded Female 01/16/2018 3:45 PM CDT documented as of this encounter Miscellaneous Notes Telephone Encounter - Barbi Tapia RSymoneNSymone - 10/01/2020 10:17 PM CDT Patient with another episode of acute gastritis L upper abdomen. Pain 8/10 with nausea 30 minutes after a small meal. Pain has subsided now and is manageable. Caller has been on Prilosec for 3 days andwill continue this two times per day. Triage nurse reviewed home cares she will call for an appointment when offices open for further work up on stomach issue. Will call back as needed. Reason for Disposition ? ? Abdominal pain is a chronic symptom (recurrent or ongoing AND present > 4 weeks) Protocols used: ABDOMINAL PAIN - [id number]-UQDTT-NY ANTACIDS: Try taking an antacid (e.g., Mylanta, Maalox) 1 hour after meals and before bedtime. Dose:2 tablespoons (30 ml) of liquid. FOOD: Eat smaller meals and avoid snacks for 2 hours before sleeping. Avoid the following foods which tend to aggravate heartburn and stomach problems: fatty/greasy foods, spicy foods, caffeinated beverages, mints, and chocolate. PAIN DIARY: Keep a pain diary. Include the date, time, place, what you were doing at the time, severity, duration, what helps, etc. 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 PCP - General 10/19/[address] [address] documented as of this encounter
--- OUTSIDE RECORDS SUMMARY | 2021-12-14 01:29 | XMS_ITS | Encounter Summary ---
:1990 Author Organization [facility] Address [address] [place] [address] Care Team Providers Name Role Phone Domonique Jones APRN, C.N.P., D.N.P. Primary Care Provider Reason for Visit Reason Comments Abdominal Pain started 2 weeks ago. only af ter eating. Appointment Request (Routine) - Closed Specialty Diagnoses / Procedures Referred By Contact Refer red To Contact Family Medicine Referral ID Status Reason Start Date Expiration Date Visits Requ ested Visits Authorized [id number] Closed 09/28/2020 09/28/2021 1 1 Encounter Details Date Type Department Care Team Description 09/28/2020 Office Visit Department of Family Radha Wan Gast ritis (Primary Dx) [facility], in [facility] [address] [place], [place] [address] [address] [place], [place] [phone] (Work) [phone] Social History Tobacco Use Types Packs/Day Years Used Date Smoking Tobacco: Never Smokeless Tobacco: Never Tobacco Cessation: Counseling Given: No Alcohol Use Standard Drinks/Week Comments No 0 [...] do you talk on the phone T gaylace a week 03/05/2021 with family, friends, or neighbors? How often do you get together with friends or relatives? Onc e a week 03/05/2021 How often do you attend temple or amish services? Never 03/05/2021 Do you belong to [...] have completed or the highest Rani, MEd, GENERAL LABORER, MARLEN) degree you have received? Sex Assigned at Date Recorded Female 01/16/2018 3:45 PM CDT documented as of this encounter Last Filed Vital Signs Vital Sign Reading Time Taken Comments Blood Pressure 132/75 09/28/2020 1:47 PM CDT Pulse 62 09/28/2020 1:47 PM CDT Temperature 36.7 ??C (98.1 ??F) 09/28/2020 1:47 PM CDT Respiratory Rate 18 09/28/2020 1:47 PM CDT Oxygen Saturation - - Inhaled Oxygen Concentration - - Weight 58.2 kg (128 lb 4.9 oz) 09/28/2020 1:47 PM CDT Height - - Body Mass Index 19 01/30/2019 3:54 PM CDT documented in this encounter Progress Notes Radha Soriano P.A.-C. - 09/28/2020 2:00 PM CDT SUBJECTIVE CHIEF COMPLAINT / REASON FOR VISIT Abdominal Pain (started 2 weeks ago. only after eating. ) HISTORY OF PRESENT ILLNESS Claudia Maradiaga is a pleasant 30 y.o. female who presents to the clinic today for evaluation ofabdominal pain that has been present for the last two weeks, primarily occurring after eating meals with associated nausea. Patient was seen in same day care by Dr. Zamora on 09/24/2020, and she was at that time started on milk of magnesia 30-60mL as needed for suspected constipation. On 09/24, she took 30mL of medication prior to dinner followed by another 30mL after dinner. She thenexperienced significant watery diarrhea throughout the evening and into the next morning. Her abdominal pain did seem to subside somewhat at that time, and she was able to eat 3 meals on 09/25 without si gnificant pain. On 09/26, patient began noticing 2-3/10 pain in the afternoon following her lunch that persisted throughout the evening. When Claudia woke up yesterday, she had minimal pain in the abdomen; however, 25-30 minutes after her dinner of a burger with macaroni, pain increased to 12/10 in severity and lasted for approximately 2 hours before resolving spontaneously. Today, she woke up with no symptoms. After eating lunch (a meal replacement shake and a cheese stick) abdominal pain returned at 2-3/10 in severity and has since resolved. She denies any current abdominal pain, but is confidentit will again return after eating a meal. Throughout the entire last week, she has had consistent bowel movements every morning within 15-30 minutes of waking up. When referencing bristol stool chart, bowel movements are generally a 3 in consistency. She has never had a problem with constipation or diarrhea in the past. Of note, patient was previously seen for similar symptoms on 04/20/16, at which time symptoms were attributed to peptic acid overproduction and omeprazole was prescribed. She has vague memory of this encounter but does believe that medication was effective in alleviating her symptoms. She has no further concerns today and is otherwise feeling well. REVIEW OF SYSTEMS: Constitutional: Negative for fatigue, fever and loss of appetite. Respiratory: Negative for dry cough, dyspnea and wheezing. Cardiovascular: Negative for chest pain, pressure or tightness and rapid or fluttering heart beat. Gastrointestinal: Positive for abdominal (belly) pain or cramping, diarrhea and nausea. Negative forvomiting. The following systems were negative: , Musculoskeletal, Neuro CURRENT MEDICATIONS Current Outpatient Medications Medication Sig Dispense Refill ??? acetaminophen (for_TYLENOL) 325 mg tablet Tylenol See Instructions, PO ??? calcium carbonate (TUMS) 500 mg (200 mg calcium) chewable tablet Chew 1 tablet as needed for indigestion or heartburn. ??? magnesium hydroxide (MILK OF MAGNESIA) 2,400 mg/10 mL suspension Take 10 mL by mouth as needed. ??? pimecrolimus (ELIDEL) 1 % cream Apply 1 application topically 2 (two) times a day. Patient stated she uses as needed ??? [id number] OPYL-JRAAQ-XGN ORAL Take by mouth. ??? sertraline (ZOLOFT) 50 mg tablet Take 1 tablet (50 mg total) by mouth daily. 90 tablet 3 ??? UNABLE TO FIND Patient uses shakeology ??? famotidine (PEPCID) 20 mg tablet Take 1 tablet (20 mg total) by mouth 2 (two) times a day. 120 tablet 0 ??? omeprazole (PriLOSEC) [address] capsule Take 1 capsule (40 mg total) by mouth daily. 60 capsule 0 No current facility-administered medications for this visit. ALLERGIES / CONTRAINDICATIONS Allergies Allergen Reactions ??? Alum-Mag Hydroxide-Simeth Rash ??? Aluminum-Magnesium Hydroxide Hives ??? Amoxicillin Rash and GI intolerance rash nausea ??? Azithromycin Rash ??? Lidocaine Rash and Hives OBJECTIVE BP 132/75 (BP Location: Right arm, Patient Position: Sitting, Cuff Size: Regular) Pulse 62 Temp 36.7 ??C (Temporal) Resp 18 Wt 58.2 kg BMI 19.00 kg/m?? PHYSICAL EXAMINATION Vitals reviewed. Constitutional General: She is not in acute distress. Appearance: Normal appearance. She is not toxic-appearing. HENT Head: Normocephalic. Eyes Conjunctiva/sclera: Conjunctivae normal. Cardiovascular Rate and Rhythm: Normal rate and regular rhythm. Pulses: Normal pulses. Heart sounds: Normal heart sounds. Pulmonary Effort: Pulmonary effort is normal. No respiratory distress. Breath sounds: Normal breath sounds. Abdominal General: Abdomen is flat. Bowel sounds are normal. There is no distension. Palpations: Abdomen is soft. There is no mass. Tenderness: There is abdominal tenderness (epigastric ). There is no right CVA tenderness, left CVAtenderness or guarding. Hernia: No hernia is present. Musculoskeletal General: Normal range of motion. Cervical back: Normal range of motion and neck supple. Skin Findings: No erythema, lesion or rash. Neurological General: No focal deficit present. Mental Status: She is alert and oriented to person, place, and time. Psychiatric Mood and Affect: Mood normal. Behavior: Behavior normal. Thought Content: Thought content normal. ASSESSMENT / PLAN 1. Gastritis Patient to stop at lab for H Pylori breath test to rule out H-Pylori, patient prefers to be contacted via portal with her results. Initiate dual treatment for gastritis likely due to peptic acid overproduction with PPI and H2 rhiannon for 60 days. Recommend fiber rich diet with adequate water intake, though I do not suspect constipation as the primary cause of patient's symptoms at this time. If bowelmovements become infrequent or difficult to pass, consider course of MiraLAX. Patient advised to keep a food/activity journal to determine if certain foods/activities correlate to worsening symptoms. If symptoms fail to improve with the above treatment, consider laboratory evaluation for gluten allergy and possible upper endoscopy. - Helicobacter pylori Breath Test; Future - omeprazole (PriLOSEC) [address] capsule; Take 1 capsule (40 mg total) by mouth daily. Dispense: 60 capsule; Refill: 0 - famotidine (PEPCID) 20 mg tablet; Take 1 tablet (20 mg total) by mouth 2 (two) times a day. Dispense: 120 tablet; Refill: 0 PATIENT EDUCATION Ready to learn, no apparent learning barriers were identified; learning preferences include listening. Explained diagnosis and treatment plan; patient expressed understanding of the content, discussed at length. All questions answered. Radha Soriano P.A.-C. documented in this encounter Plan of Treatment Not on filedocumented as of this encounter Results Helicobacter pylori Breath Test (09/28/2020 3:05 PM CDT) athologist Signature H. pylori C Negative Negative [facility] 12[facility]40 PM CDT Test Comment: Result indicates the absence of current Helicobacter pylori infection. Specimen Anatomical Collection Method Collection Time Receive d Time (Source) Location / / Volume Laterality Breath (Mouth) 09/28/2020 3:05 PM 021 7:[address] [facility] SUPPORT AMANDA Bates - 09/29/2020 12:40 PM CDT Specimen Information: Specimen ID: [id number] Specimen Type: Breath Specimen Collection Start Date: 09/29/19 ??3:05 PM Specimen Received Date: 09/29/2020 ??7:2 4 AM Specimen ID: [id number] Specimen Type: Breath Specimen Collection Start Date: 09/29/19 ??3:22 PM Specimen Received Date: 09/29/2020 ??7:2 4 AM Radha Wan P.A.-C. LAB MICROBIOLOGY - GENERAL O RDERABLES Performing Organization Address City/State/ZIP Code Phon e Number [facility] [address], [place] [address] [place] [address] [place] [address] Laboratory Medicine and Pathology [address] [place] [address] Dr. 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 PCP - General 10/19/162[address] [address] documented as of this encounter
--- OUTSIDE RECORDS SUMMARY | 2021-12-14 01:29 | XMS_ITS | Encounter Summary ---
:1990 Author Organization [facility] Address [address] [place] [address] Care Team Providers Name Role Phone Domonique Jones APRN, C.N.P., D.N.P. Primary Care Provider Encounter Details Date Type Department Care Team Description 10/01/2018 [facility], [facility] [address], [place], [place] [address] [place] [address] Social History Tobacco Use Types Packs/Day Years [...] week 03/05/2021 How often do you attend religious or buddhist services? Never 03/05/2021 Do you belong to any clubs or organizations such as religious N o 03/05/2021 groups, unions, fraternal or [...] or slept in a mcfp (including now)? Sex Assigned at Date Recorded Female 01/16/2018 3:45 PM CDT documented as of this encounter Plan of Treatment Not on filedocumented as of this encounter Visit Diagnoses Not on filedocumented in this encounter Care Teams Financial Compliance Examiner Relationship Specialty Start Date End Date Domonique Jones APRN, C.N.P., D.N.P. PCP - General 10/19/16 [address], [place] [address] documented as of this encounter
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
--- OUTSIDE RECORDS SUMMARY | 2021-12-14 01:29 | XMS_ITS | Encounter Summary ---
:1990 Author Organization [facility] Address [address] [place] [address] Care Team Providers Name Role Phone Domonique Jones APRN, C.N.PSymone, D.N.P. Primary Care Provider Encounter Details Date Type Department Care Team Description 09/28/2020 Clinical Communication Department of Domonique Ames [facility], Edyta Guerrero APRN, C.N.PSymone, Clinic, in [place] Tyson.N.PSymone [place] [address] [facility] [place] [phone] Social History Tobacco Use Types Packs/Day [...] week 03/05/2021 How often do you attend bahai or presybeterian services? Never 03/05/2021 Do you belong to any clubs or organizations such as bahai N o 03/05/2021 groups, unions, fraternal or [...] have completed or the highest Rani, MEd, HIMS CODER, MARLEN) degree you have received? Sex Assigned at Date Recorded Female 01/16/2018 3:45 PM CDT documented as of this encounter Plan of Treatment Not on filedocumented as of this encounter Visit Diagnoses Not on filedocumented in this encounter Additional Health Concerns Assessment Noted Time PHQ-9 Depression Total Score: 8 06/24/2020 6:13 PM HEEL BUFFER documented as of this encounter Care Teams Ice Cream Freezer Relationship Specialty Start Date End Date Domonique Jones, SERGE, C.N.P., D.N.P. PCP - General 10/19/[address] [phone] documented as of this encounter
--- OUTSIDE RECORDS SUMMARY | 2021-12-14 01:29 | XMS_ITS | Encounter Summary ---
:1990 Author Organization [facility] Address [address] [place] [address] Care Team Providers Name Role Phone Domonique Jones APRN, C.N.PSymone, D.N.P. Primary Care Provider Reason for Visit Reason Comments Other Preconception Appointment Request (Routine) - Closed Specialty Diagnoses / Procedures Referred By Contact Refer red To Contact Family Medicine Referral ID Status Reason Start Date Expiration Date Visits Requ ested Visits Authorized [id number] Closed 07/29/2018 07/29/2019 1 Encounter Details Date Type Department Care Team Description 08/02/2018 Office Visit Department of Family Domonique Jones Preconception Medicine, Edyta Guerrero APRN C.N.PSymone, (Prim sundeep Dx) Clinic, in [place], Jian.N.P. [place] [address] [place] [phone] Social History Tobacco Use Types Packs/Day [...] How often do you attend religious or caodaism services? Never 03/05/2021 Do you belong to [...] slept in a group home (including now)? Sex Assigned at Date Recorded Female 01/16/2018 3:45 PM CDT documented as of this encounter Last Filed Vital Signs Vital Sign Reading Time Taken Comments Blood Pressure 118/72 08/02/2018 9:27 AM CDT Pulse 76 08/02/2018 9:27 AM CDT Temperature 36.6 ??C (97.8 ??F) 08/02/2018 9:27 AM CDT Respiratory Rate 16 08/02/2018 9:27 AM CDT Oxygen Saturation - - Inhaled Oxygen Concentration - - Weight 59.3 kg (130 lb 11.7 oz) 08/02/2018 9:27 AM CDT Height - - Body Mass Index 20.04 01/16/2018 3:52 PM CDT documented in this encounter Patient Instructions Patient InstructionsDomonique Jones APRN, C.N.P., D.N.P. - 08/02/2018 9:30 AM CDT Start a daily. Folic acid should be 100%. Low/medium dose of vitamin A (not more than 80-100%) Iron, omega's 3s zinc etc can be helpful. If you find a brand with the HALF-WAY stamp, that generally means it is a good option. Continue exercising, but not to excess. Aim for 150 minutes per week minimum. Try having sex every 2-3 days and eventually you should get . If it has been over 9-12 months we will have you see gynecology. documented in this encounter Progress Notes Domonique Jones APRN, C.N.P., Jia. - 08/02/2018 9:30 AM CDT CHIEF COMPLAINT / REASON FOR VISIT Claudia Maradiaga is a 28 y.o. female who presents for evaluation of Other (Preconception ). HISTORY OF PRESENT ILLNESS Claudia Maradiaga is a 28 y.o. female who is here today for preconception counseling. Her and adrian are planning to start their family. She has stopped her oral contraceptive which she has been using for 12-13 years continuously. She said that menarche was about age 11 or 12 and she remembersin high school having fairly regular, but generally like periods. Sometimes even with her control pill she will not get a withdrawal bleed. That is been pretty consistent for her. Claudia is exercising regularly. She is a runner. She is training for a half marathon, but doesn't feel she is exercising to excess. She is eating overall a very healthy diet, but doesn't eat really any dairy except occasional chocolate milk after a workup. She has not yet started a vitamin.She is not currently taking any medications. She will occasionally take tylenol if she really needs it. She also rarely used pimecrolimus above her eyelids. REVIEW OF SYSTEMS Answers for HPI/ROS submitted by the patient on 08/02/2018 No general issues: Yes No eye issues: [...] Family History ??? Abnormal Pap Smear Cervix Past Surgical History: Procedure Laterality Date ??? NASAL SEPTOPLASTY ??? SUBMUCOUS RESECTION OF NASAL SEPTUM WITH REPLACEMENT WITH GRAFT N/A 05/02/2004 Septoplasty or submucous resection, with or without cartilage scoring, contouring or replacement with graft.. MEDICATIONS Current Outpatient Prescriptions: ??? acetaminophen (for_TYLENOL) 325 mg tablet, Tylenol See Instructions, PO, Disp: , Rfl: ??? pimecrolimus (ELIDEL) 1 % cream, Apply 1 application topically 2 (two) times a day., Disp: , Rfl: ALLERGIES Allergies Allergen Reactions ??? Alum-Mag Hydroxide-Simeth Rash ??? Aluminum-Magnesium Hydroxide Hives ??? Amoxicillin Rash and GI intolerance rash nausea ??? Azithromycin Rash ??? Lidocaine Rash and Hives VITAL SIGNS BP 118/72 (BP Location: Right arm, Patient Position: Sitting, Cuff Size: Regular) Pulse 76 Temp 36.6 ??C (Oral) Resp 16 Wt 59.3 kg BMI 20.04 kg/m?? PHYSICAL EXAM General: Patient is alert and oriented, in no acute distress. Capable of full communication without difficulty. Patient is polite and cooperative. Appropriately dressed and normal hygiene. HEENT: Normocephalic, atraumatic. Pupils are equal, round and reactive to light. Auditory canals patent, tympanic membranes are pearly juarez with visualization of bony structures. Nasal turbinates are not swollen or erythematous. Oropharynx without lesion. Pharynx rises symmetrically without exudate. Dentition grossly intact. Neck: No lymphadenopathy, no thyromegaly. Heart: Regular rate and rhythm. No murmurs, gallops or rubs noted. Lungs: Clear to auscultation bilaterally. No wheeze. No accessory muscles of respiration noted. Abdomen: Nontender to palpation. No hepatosplenomegaly. No mass. Normal bowel sounds in all 4 quadrants. Pelvis: Deferred. Due in fall. Neuro: Cranial nerves II through XII are grossly intact. Mental: Affect is normal. Thought process congruent. Speech is fluent. DIAGNOSIS/PLAN #1 Counseling Preconception We talked about ideal timing for intercourse when trying to achieve . Usually ovulation occurs about 2 weeks before anticipated start of menses. Having sex every 2 days during cycle days 7 to 21 for most women will eventually result in . In Claudia's case, she hasn't yet gotten a menses since stopping her oral contraceptive, which isn't unusual, but makes it more challenging to time intercourse. I have recommended making it a habit to have sex every 2-3 days just in general. If she has a delay in getting a menstrual cycle back given the length of time she's been on oral contraceptives, she may want to take a monthly test. We reviewed past medical and family history today. There are no concerns that could potentially affect a future . She is up to date on cervical cancer and STI screening. However, she will needa 1 year repeat pap with co- testing in the fall of 2018. We reviewed current vaccinations. She is up to date. [place] We discussed her current medications. Discussed that if needed, tylenol would be much safer than ibuprofen and she should avoid ibuprofen. She should not be taking anything else over the counter unlessshe knows she is not . She was encouraged to stop her Elidel use which she is only using occasionally. We discussed the importance of self care through healthy diet and regular physical activity when preparing for . I recommend 150 minutes of moderate intensity exercise per week. She is easily getting this and is very active. I recommend a balanced diet rich in fruits, vegetables, wholes grains and lean meats. We discussed the importance of calcium and iron consumptions. She is currently at aBMI of 20 which is within goal. I recommended complete avoidance of alcohol and tobacco. She is a nonsmoker. I have recommended that she start a vitamin daily which is important to get started with before conception. She should search for a that has the HALF-WAY label. Discussed that she should return for evaluation if it has been 9-12 months and they have been unableto conceive or if she doesn't get a menstrual period after 4-6 months. She has no other questions or concerns. Overall she is in excellent health. Total visit time was 24 minutes, with greater than 18 minutes being spent on patient education, counseling, and coordination of care. documented in this encounter Plan of Treatment Not on filedocumented as of this encounter Visit Diagnoses Diagnosis Counseling Preconception - Primary documented in this encounter Care Teams Yarn Rewinder Relationship Specialty Start Date End Date Domonique Jones APRN, C.N.P., D.N.P. PCP - General 10/19/[address] [phone] documented as of this encounter
--- OUTSIDE RECORDS SUMMARY | 2021-12-14 01:29 | XMS_ITS | Encounter Summary ---
:1990 Author Organization [facility] Address [address] [place] [address] Care Team Providers Name Role Phone Domonique Jones APRN, C.N.P., D.N.P. Primary Care Provider Encounter Details Date Type Department Care Team Description 09/28/2020 Hospital Encounter Department of Laboratory Abhishek Wan, Gastritis Medicine in [facility] [address] [place] [phone] (Wo rk) Social History Tobacco Use Types [...] How often do you attend orthodox or bahai services? Never 03/05/2021 Do you belong to [...] have completed or the highest Rani, MEd, CLOTH EXAMINER, MARLEN) degree you have received? Sex Assigned at Date Recorded Female 01/16/2018 3:45 PM CDT documented as of this encounter Medications at Time of Discharge Medication Sig Dispensed Refills Start Date End Date [id number] Take by mouth. 0 [id number] ORAL UNABLE TO FIND Patient uses 0 shakeology acetaminophen Tylenol See 0 04/29/2016 10/12/2020 (for_TYLENOL) 325 mg Instructions, PO tablet calcium carbonate Chew 1 tablet as 0 [...] Name Priority Date/Time Associated Diagnosis Comme nts H. PYLORI C UREA Routine 09/28/2020 3:05 PM Gastritis Resul ts for this BREATH TEST CDT procedure are i n the results section. documented in this encounter Results Helicobacter pylori Breath Test (09/28/2020 3:05 PM CDT) athologist Signature H. pylori C Negative Negative 09/29/2020 [facility] Urea Breath 12:40 PM CDT Test Comment: Result indicates the absence of current Helicobacter pylori infection. Specimen Anatomical Collection Method Collection Time Receive d Time (Source) Location / / Volume Laterality Breath (Mouth) 09/28/2020 3:05 PM 021 7:24 CDT AM CDT Narrative [facility] - 09/29/2020 12:40 PM CDT Specimen Information: Specimen ID: [id number] Specimen Type: Breath Specimen Collection Start Date: 09/29/19 ??3:05 PM Specimen Received Date: 09/29/2020 ??7:2 4 AM Specimen ID: [id number] Specimen Type: Breath Specimen Collection Start Date: 09/29/19 ??3:22 PM Specimen Received Date: 09/29/2020 ??7:2 4 AM Radha Wan P.A.-C. LAB MICROBIOLOGY - GENERAL O RDERABLES Performing Organization Address City/State/ZIP Code Phon e Number [facility] [address], [place] [address] [facility] [place] [address] Laboratory Medicine and Pathology [address] [place] [address] Dr. 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 PCP - General 10/19/162199 [address] [place] [phone] documented as of this encounter
--- OUTSIDE RECORDS SUMMARY | 2021-12-14 01:30 | XMS_ITS | Encounter Summary ---
:1990 Author Organization [facility] Address [address] [place] [address] Care Team Providers Name Role Phone Unavailable Primary Care Provider Unavailable Encounter Details Date Type Department Care Team Description 05/01/2016 Hospital Encounter HX [facility] Provider, De anand Social History Tobacco Use Types Packs/Day Years Used Date Smoking Tobacco: Never Assessed Alcohol Habits Answer Date Recorded How often [...] week 03/05/2021 How often do you attend worship or orthodoxy services? Never 03/05/2021 Do you belong to any clubs or organizations such as worship N o 03/05/2021 groups, unions, fraternal or [...] or slept in a custodial (including now)? Sex Assigned at Date Recorded Female 01/16/2018 3:45 PM CDT documented as of this encounter Last Filed Vital Signs Vital Sign Reading Time Taken Comments Blood Pressure - - Pulse - - Temperature - - Respiratory Rate - - Oxygen Saturation - - Inhaled Oxygen Concentration - - Weight - - Height 173 cm (5' 8.11) 05/01/2016 9:07 AM HEEL PADDER Body Mass Index - - documented in this encounter Medications at Time of Discharge Medication Sig Dispensed Refills Start Date End Date acetaminophen Tylenol See 0 04/29/2016 10/12/2020 (for_TYLENOL) 325 mg Instructions, PO tablet magnesium citrate 100 mg Take 300 mL by mouth 0 0 12/04/2014 03/10/2017 tablet as needed. pimecrolimus (ELIDEL) 1 Apply 1 application 0 04/201603/21/2021 % cream topically 2 (two) times a day. Patient stated she uses as needed documented as of this encounter Miscellaneous Notes Telephone Encounter - Conversion, Historical Provider Ser - 06/16/2016 11:09 AM CST *Phone Message- Simi Ricardo Document Contains Addenda Addendum by CONSTANZA WADE RN on June 20, 2016 15:04:03 HEEL PADDER Informed pt of below plan. Pt agrees. No further questions. Addendum by ALONDRA BATRES on June 20, 2016 14:55:29 HEEL PADDER pt called back unable to reach nurse. Please call her back after 3:40 Addendum by RYNE HEARN RN on June 20, 2016 13:04:38 HEEL PADDER Unable to reach the patient. Left message to call back. Addendum by SIMI RICARDO PA-C on June 20, 2016 12:57:42 HEEL PADDER From: SIMI RICARDO PA-C To: ALICIA COULTERdirector of instructionB[facility]; Sent: 06/20/2016 12:57:42 HEEL PADDER Subject: RE: *Phone Message- Simi Ricardo Let's try switching her to monophasic form of Trinessa, called Mononessa (each week of the active pills contains the same amount of hormone). Can complete current pack and then switch over to the new back. Would like her to let me know if cycles don't regulate over the next 2-3 months on new pill. Addendum by SIMI ROCK RN on June 16, 2016 15:06:41 HEEL PADDER From: SIMI ROCK RN ([facility]) To: SIMI RICARDO PA-C; Sent: 06/16/2016 15:06:41 HEEL PADDER Subject: FW: *Phone Message- Simi Luz Called Claudia back. Reason for Call: Concern over irregular periods, does she need to be seen or change control Chief Complaint: irregular periods, normal for her flow and no abnormal cramping History of Present Illness: Onset of Symptoms: 1 year ago Location: _ Duration: _ Characteristics: will have period for 2 weeks then off 2 weeks then on for 2 weeks then of for 3 weeks Associated Factors: _ Relieving Factors: _ Treatments Tried: Pt on Trinessa control for years Disposition of Call/Coordination of Care: ( _ ) Recommend immediate attention call 911 ( _ ) Report to nearest Emergency Department ( _ ) Recommend patient does not drive to the Emergency Department ( _ ) Recommend patient/caller schedule an appointment ( _ ) Transfer patient/caller to the appointment desk ( x ) Notified Provider Luz ( x ) Awaiting provider recommendations ( _ ) Referral to services or providers _ ( _ ) Self-care appropriate at this time _ Self-Care Instructions: ( x ) Instructed to call back if symptoms persist, worsen or change ( _ ) Instructed about specific symptoms to watch for _ ( _ ) Instructed to call 911 or have someone take them to the Emergency Department if any of the following symptoms develop: _ ( _ ) Self-care information provided: Recommended Level of Care Patient/Caller response to Education/Information given: ( -x ) Verbalizes understanding of instructions Patient/Callers response to follow the plan of care: ( x ) Willing and able to follow the nurses recommendation (Plan of Care). ( _ ) Not able to follow nurse recommendations. Enter the recommended level of care and patients response to the recommendation: Source/References used: _ OK to leave message on voice mail? _ OK to send message via patient portal? _ Patient told to expect return call: ( _ ) today ( _ ) tomorrow ( x ) next work day Callers preferred language for Healthcare discussions: _ Was an supervisor drawing used for this call? _ Other ( _ ) Addendum by ALONDRA BATRES on June 16, 2016 14:53:20 HEEL PADDER Pt called back unable to reach please call her back. Addendum by SIMI ROCK RN on June 16, 2016 14:50:43 HEEL PADDER Called pt. No answer. Left message to call back. Addendum by CHELA ELLIOTT on June 16, 2016 14:44:36 HEEL PADDER Pt returning call to nurse, please call back [phone] Addendum by SIMI ROCK RN on June 16, 2016 11:32:18 HEEL PADDER Called pt. No answer. Left message to call back. From: EMILY MATTHEW To: ALICIA COULTERdirector of instructionB[facility]; Sent: 06/16/2016 11:09:23 HEEL PADDER Subject: *Phone Message- Simi Luz Caller is: ( x) Patient ( ) Mother ( ) Father ( ) Spouse ( ) Daughter ( ) Son ( ) Pharmacy ( ) Other: Physician: Simi Ricardo Patient MRN #: Reason for Call: Message: S: Pt called clinic to talk to nurse B: has concerns with her control A: R: Please call pt at [phone] Advice/Action: Source used: ( ) Verbalizes understanding of instructions ( ) Instructed to call back if symptoms worsen or do not resolve ( ) Refused to see provider ( ) Appointment Scheduled ( ) OK to leave message on voice mail ( ) Patient told to expect return call: ( ) today ( ) tomorrow ( ) next work day ( ) Patient's email ( ) Patient told physician out of office, will call upon return call on ( ) ( ) Patient told physician out of office, routed to other physician ( ) Other ( ) Call back telephone number ( ) Call back cell phone number ( ) Source: [facility] POWERCHART Document Id: [id number] documented in this encounter Plan of Treatment Not on filedocumented as of this encounter Visit Diagnoses Not on filedocumented in this encounter
--- OUTSIDE RECORDS SUMMARY | 2021-12-14 01:30 | XMS_ITS | Encounter Summary ---
:1990 Author Organization [facility] Address [address] [place] [address] Care Team Providers Name Role Phone Domonique Justice APRN, C.N.P., D.N.P. Primary Care Provider Encounter Details Date Type Department Care Team Description 01/11/2017 Hospital Encounter HX [facility] Megan Justice APRN, C.N.P., D. N.P. [address] [place] [address] (Wo rk) Social History Tobacco Use Types Packs/Day Years Used Date Smoking Tobacco: Never Alcohol Habits Answer Date Recorded How often [...] week 03/05/2021 How often do you attend jainism or roman catholic services? Never 03/05/2021 Do you belong to any clubs or organizations such as jainism N o 03/05/2021 groups, unions, fraternal or [...] or slept in a prison (including now)? Sex Assigned at Date Recorded Female 01/16/2018 3:45 PM CDT documented as of this encounter Last Filed Vital Signs Vital Sign Reading Time Taken Comments Blood Pressure 118/70 01/11/2017 3:49 PM CDT Pulse 70 01/11/2017 3:49 PM CDT Temperature - - Respiratory Rate - - Oxygen Saturation - - Inhaled Oxygen Concentration - - Weight 54.8 kg (120 lb 13 oz) 01/11/2017 3:49 PM CDT Height 172 cm (5' 7.72) 01/11/2017 3:49 PM CDT Body Mass Index 18.52 01/11/2017 3:49 PM CDT documented in this encounter Medications at Time [...] as needed documented as of this encounter H&P Notes Domonique Justice APRN, Jian.N.P., C.N.P. - 01/11/2017 5:04 PM CDT FM-ME CHIEF COMPLAINT/REASON FOR VISIT Physical; irregular periods; skin check HISTORY OF PRESENT ILLNESS Claudia is a very pleasant 26-year-old female here for a physical. We did discuss at her last visit that we would do a full skin exam today. She does have family history of melanoma in her twin sister. She has no moles that she is concerned about at this time knows that she should have her skin checked on an annual basis. She does now take care of her skin and wears sunscreen regularly. Claudia has been battling with irregular periods the past year. She was on TriNessa for many yearsand then started to get periods every 2 weeks while taking that. At that time her primary care provider switched her to MonoNessa and her symptoms persisted. She took this for at least 3-4 months at which point she saw me again and we started her on levonorgestrel-ethinyl estradiol 0.15 mg- 30 mcg. 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 She is hesitant to make major changes though prior to her wedding. She denies cramping, bloating, or any other negative effects associated with the pill. Claudia did have an abnormal pap in 2015, ASCUS with positive HPV, and colposcopy was normal. She was encouraged to have a repeat pap again in January 2017. This February Claudia tells me she will be getting . She is busy wedding planning. 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 She is very active and is a distance runner. She eats a balanced diet. She sees a dentist and radio sportscaster regularly. She is a nonsmoker and has no regular alcohol use. She does not have any children of her own at present, but hopes to in the next few years. She has no other questionsor concerns today. MEDICATIONS Calcium 500+D, 1 tab(s), PRN Elidel 1% topical cream, 1 mery, Topical, 2xDay, 1 refills levonorgestrel-ethinyl estradiol 0.15 mg-30 mcg oral tablet, 1 tab(s), PO, Daily, 11 refills magnesium citrate, 300 mL, Restless legs, PO, PRN Tylenol, See Instructions, PO ALLERGIES amoxicillin lidocaine (Urticaria) Maalox (Urticaria) Zithromax Z-Juan (rash) PAST MEDICAL HISTORY Chronic Body Mass Index (BMI) Less Than 19 Adult Cough Bronchospastic Dermatitis Eyelid NOS Exam General Medical NOS (GME) General examination of patient History of PDA WITH SURGICAL REPAIR Lesion Skin Back Melanoma Fam Hx Oral contraception Revision septoplasty Whiplash Historical No historical problems PROCEDURES/SURGICAL HISTORY Microscopic examination of cervical Papanicolaou smear (02/14/2010), Cytopathology, cervical or vaginal (any reporting system), collected in preservative fluid, automated thin layer preparation; manual screening under physician supervision.. (Week of 02/16/2009), Cytopathology, cervical or vaginal (any reporting system), collected in preservative fluid, automated thin layer preparation; manual screening under physician supervision.. (Week of 02/17/2008), Cytopathology, cervical or vaginal (any reporting system), collected in preservative fluid, automated thin layer preparation; manual screening under physician supervision.. (Week of 10/19/2006), Septoplasty or submucous resection, with or without cartilage scoring, contouring or replacement with graft.. (Week of 05/02/2004), Tetanus and diphtheria toxoids (Td) adsorbed when administered to individuals 7 years or older, forintramuscular use (Week of 10/01/2002). SOCIAL HISTORY Date Time: 01/11/2017 15:49 Tobacco: Smoking Status: Never smoker Exposure: Other: Never Alcohol: Use: No Results Found Recreational Drugs: Use: No Results Found Type: No Results Found FAMILY HISTORY Father:Positive: Eczema Negative: Fibromuscular dysplasia Sister:Positive: Melanoma Negative: Mesothelioma SYSTEMS REVIEW GENERAL: No weight loss, no recent fever, no extreme fatigue. EENT: No double vision, no sudden loss of vision, no sore throat, no runny nose, no ear pain, no hearing loss. PULMONARY: No shortness of breath, no cough, no wheezing, no excessive snoring. CARDIAC: No chest pain, no rapid or irregular beats, no pain in legs relieved with rest. No swelling in legs, feet or hands. BREASTS: No breast mass, no nipple discharge or changes. GI: No heartburn, no nausea, no vomiting, no constipation, no diarrhea, no blood in bowel movements, no abdominal pain, no bloating. REPRODUCTIVE: Does have irregular periods, no abnormal vaginal discharge, last menstrual period 01/10/17. : No burning/pain with urination, no difficulty starting or stopping stream, no frequent urination. MUSCULOSKELETAL: No muscle weakness, no joint pain, no back pain. SKIN: No skin rashes, no skin sores, no change in moles, no excessive bruising. NEURO: No significant headaches, no persistent weakness or numbness on one side of body, no falls. ENDOCRINE: No excessive thirst or urination. No heat or cold intolerance. MENTAL: No depression, no anxiety, no suicidal thoughts. VITAL SIGNS HR: 70 BP: 118 / 70 HT: 172 cm WT: 54.8 kg BMI: 18.52 PHYSICAL EXAMINATION GENERAL: Patient is alert and oriented, in no acute distress. Capable of full communication withoutdifficulty. Patient is polite and cooperative. Appropriately dressed and normal hygiene. HEENT: Normocephalic, atraumatic. Extraocular movements are intact, pupils are equal, round and reactive to light. Auditory canals patent, tympanic membranes are pearly juarez with visualization of bonystructures. Oropharynx without lesion. Pharynx rises symmetrically without exudate. Dentition intact. NECK: No palpable lymph nodes, no thyromegaly. HEART: Regular rate and rhythm. No murmurs, gallops or rubs noted. LUNGS: Clear to auscultation bilaterally. No wheeze. No accessory muscles of respiration noted. Herchest has a mild pectus excavatum shape. BREASTS: Soft breast tissue without predominant mass or nodularity. No nipple discharge. Nipples everted bilaterally. No axillary or supraclavicular adenopathy. ABDOMEN: Nontender to palpation. No hepatosplenomegaly. No mass. Normal bowel sounds in all 4 quadrants. PELVIS: Normal external genitalia. Normal scant vaginal discharge. Mucosa moist and well rugated. Cervix is midline. Pap smear is taken by thin-prep technology. Bimanual exam shows no adnexal fullness. No cervical motion tenderness. Anus appears normal. EXTREMITIES: No neurovascular compromise. No cyanosis, clubbing or edema. No abnormal limb length. NEURO: Cranial nerves II through XII are grossly intact. SKIN: No rashes or lesions. She has no abnormal nevi that meet criteria for biopsy at this time. There is a 0.4cm x 0.2cm nevus on her right medial rolon that has an asymmetric shape, but no other worrisome features. MENTAL: Affect is normal. Thought process is linear. Speech is clear and at a normal rate. IMPRESSION/REPORT/PLAN Encounter for screening for malignant neoplasm of cervix Pap with co-testing sent to pathology. She was bleeding very lightly yesterday, but I was easily able to visualize the cervix today and there was very minimal blood in the vaginal vault. Ordered: OV Est Pt Prev Svc 395 Pathology - DRIVER STARTING GATE Cytology Maintenance Health Adult (HM) Colon cancer screening due at age 50. Mammogram due at age 40. Pap test done today. Fasting blood glucose not indicated. Lipid profile not indicated. TDaP immunization is current. Influenza immunization due today, patient declines as she can get this for free at school. Discussed preventative health including healthy diet, exercise, 100% seatbelt use, dental visits every 6 months, annual eye exams, breast self awareness, safe sun exposure, and home safety. She will follow up in one year for annual exam. Ordered: OV Est Pt Prev Svc 395 Metrorrhagia Continue on the levonorgestrel-ethinyl estradiol another 1-2 months. At that point if periods do not start to regulate, I am going to go ahead and send her to CUSTODIAL FOREMAN for further recommendations. She has has menometrorrhagia on TriNessa, MonoNessa, and now levonorgestrel-ethinyl estradiol 0.15mg-30mcg. Ordered: OV Est Pt Prev Svc 395 Screening Exam Skin Cancer A full skin exam was done today. There are no areas of concern that warrant biopsy at this time. I did encourage that she receive a skin exam by a board certified cycle touring guide at least every other year given her family history. She will continue to wear sunscreen and get routine eye exams. Ordered: OV Est Pt Prev Svc [id number] Electronically Signed By: DOMONIQUE JUSTICE APRN, DNP, PLANETARIUM SKY SHOW TECHNICIAN On: 01/11/2017 05:25 PM Source: [facility] POWERCHART Document Id: [id number] documented in this encounter Miscellaneous Notes Telephone Encounter - Rhea Tavares - 01/26/2017 8:31 AM CDT RE: Pap results Document Contains Addenda From: RHEA TAVARES ([facility] Nurse Line) To: CLAUDIA MARTEL Sent: 01/26/2017 08:31:18 CDT Subject: RE: Pap results Your message has been received. Thank you for trusting your health care to the [facility] [place]. From: CLAUDIA MARTEL To: [facility] ( Nurse Line) Sent: 01/25/2017 07:29 p.m. CDT Subject: RE: Pap results Thank you for your message. It has been successfully sent to the appropriate care team. Thank you Domonique. I do have the colonoscopy scheduled for Feb.12 the soonest I could get my schedule to work with Kasandra, as that is who I saw last time and really thought highly of her. Thanks, Claudia Addendum by DOMONIQUE JUSTICE APRN, DNP, PLANETARIUM SKY SHOW TECHNICIAN on January 25, 2017 13:30:10 CDT From: DOMONIQUE JUSTICE APRN, DNP, PLANETARIUM SKY SHOW TECHNICIAN To: CLAUDIA MARTEL Sent: 01/25/2017 13:30:10 CDT Subject: RE: Pap results Hi Hoa Taylor, this morning was really busy and I didnt get time to call over lunch hour. You actually did test positive for HPV on your pap last year, too, so this probably isnt a new HPV infection. As far asimplications, there is nothing we do to treat the HPV infection itself. Its very common in the general population. Many young women can clear the HPV infection on their own over time and most dont haveany symptoms. We just need to keep a closer eye on you since there have been some abnormalities noted on your pap. The colposcopy will again help to clarify things for us, so make sure to get that scheduled here in the next few weeks. Hopefully that answers a few questions for you. The OB team is verygood about explaining things as well if more questions arise. Domonique Montes Addendum by MONIQUE DENG CMA on January 25, 2017 10:56:02 CDT From: MONIQUE DENG CMA ( Family Med 1 Nurse) To: DOMONIQUE JUSTICE APRN, DNP, PLANETARIUM SKY SHOW TECHNICIAN; Sent: 01/25/2017 10:56:02 CDT Subject: FW: Pap results From: RHEA TAVARES ( Nurse Line) To: [facility] 1 Nurse; Sent: 01/25/2017 10:17:06 CDT Subject: FW: Pap results From: CLAUDIA MARTEL To: [facility] ( Nurse Line) Sent: 01/25/2017 05:57 a.m. CDT Subject: RE: Pap results Thank you for your message. It has been successfully sent to the appropriate care team. Jesus Youssef, I was not aware that I actually had HPV. From the previous colposcopy, she had said everything looked fine and tests came back negative. Since you are saying I do have HPV, what does this mean for me? I may be able to speak over the phone between 11-12 today, otherwise a message here is fine too. Thank you, Claudia From: DOMONIQUE JUSTICE APRN, DNP, PLANETARIUM SKY SHOW TECHNICIAN To: CLAUDIA MARTEL Sent: 01/22/2017 08:34:14 CDT Subject: Pap results Jesus Taylor, I tried calling the contact number listed and got your answering machine. If you get this portal message prior to us reaching you over the phone, your pap did come back showing atypical squamous cells and you still did test positive for HPV. I have put in an order for colposcopy, and you can call to get that scheduled at your next earliest convenience. Certainly, if you have questions please let me know! Take care and best wishesDomonique Source: [facility] POWERCHART Document Id: [id number] Telephone Encounter - Chaitanya Rhea Nieves - 01/25/2017 10:17 AM CDT FW: Pap results Document Contains Addenda Addendum by DOMONIQUE JUSTICE APRN, DNP, CNP on January 25, 2017 13:30:10 CDT From: DOMONIQUE JUSTICE APRN, DNP, CNP To: CLAUDIA MARTEL Sent: 01/25/2017 13:30:10 CDT Subject: RE: Pap results Hi Hoa Taylor, this morning was really busy and I didn't get time to call over lunch hour. You actually did test positive for HPV on your pap last year, too, so this probably isn't a new HPV infection. As far as implications, there is nothing we do to treat the HPV infection itself. It's very common in the general population. Many young women can clear the HPV infection on their own over time and most don't have any symptoms. We just need to keep a closer eye on you since there have been some abnormalities noted on your pap. The colposcopy will again help to clarify things for us, so make sure to get that scheduled here in the next few weeks. Hopefully that answers a few questions for you. The OB team is v aaron good about explaining things as well if more questions arise. Domonique Montes Addendum by MONIQUE DENG CMA on January 25, 2017 10:56:02 CDT From: MONIQUE DENG CMA ([facility] 1 Nurse) To: DOMONIQUE JUSTICE APRN, DNP, CNP; Sent: 01/25/2017 10:56:02 CDT Subject: FW: Pap results From: RHEA TAVARES ( Nurse Line) To: [facility] 1 Nurse; Sent: 01/25/2017 10:17:06 CDT Subject: FW: Pap results From: CLAUDIA MARTEL To: [facility] ( Nurse Line) Sent: 01/25/2017 05:57 a.m. CDT Subject: RE: Pap results Thank you for your message. It has been successfully sent to the appropriate care team. Jesus Youssef, I was not aware that I actually had HPV. From the previous colposcopy, she had said everything looked fine and tests came back negative. Since you are saying I do have HPV, what does this mean for me? I may be able to speak over the phone between 11-12 today, otherwise a message here is fine too. Thank you, Claudia From: DOMONIQUE JUSTICE APRN, DNP, PLANETARIUM SKY SHOW TECHNICIAN To: CLAUDIA MARTEL Sent: 01/22/2017 08:34:14 CDT Subject: Pap results Jesus Taylor, I tried calling the contact number listed and got your answering machine. If you get this portal message prior to us reaching you over the phone, your pap did come back showing atypical squamous cells and you still did test positive for HPV. I have put in an order for colposcopy, and you can call to get that scheduled at your next earliest convenience. Certainly, if you have questions please let me know! Take care and best wishesDomonique Source: [facility] POWERCHART Document Id: [id number] Miscellaneous - Domonique Justice APRN, D.N.P., C.N.P. - 01/22/2017 8:36 AM CDT Results Notification Document Contains Addenda Addendum by PAUL COPE LPN on January 22, 2017 11:18:05 CDT Spoke with: ( _x ) Patient ( _ ) Parent ( _ ) Spouse ( _ ) Child ( ) Other: _ Call back telephone number: _ Reason for Call: -_ results Chief Complaint: Informed Louise of results and need for colposcopy,Phone call was transfered to OB/ See Supervisor to schedule _ Patient/Caller response to Education/Information given: ( x_ ) Verbalizes understanding of instructions ( _ ) Provide intervention per provider instruction ( _ ) Reinforce information already given ( _ ) Reinforce Plan of Care ( _ ) Provide preprinted information by mail (if applicable) Source/Reference used (if applicable): _ OK to leave message on voice mail? _ OK to send message via patient portal? _ Patient told to expect return call: ( _ ) today ( _ ) tomorrow ( _ ) next work day Callers preferred language for Healthcare discussion: _ Was an capacitor tester used for this call? _ Other ( --_ ) From: DOMONIQUE JUSTICE APRN, DNP, ANTWAN To: [facility] 1 Nurse; Sent: 01/22/2017 08:36:17 CDT Show up: 01/22/2017 08:35:00 CDT Subject: Results Notification Called Claudia and got her answering machine. Please continue to try to reach her. Her pap again demonstracted atypical squamous cells and she also tested positive for HPV. I have referred her for colposcopy which she should get scheduled at her next earliest convenience. Results: Date Result Type Result Name 01/19/2017 13:28 Document - DOC [facility] Cytology. Source: [facility] POWERCHART Document Id: [id number] Miscellaneous - Domonique Justice APRN, DeborahNKarsten, C.N.P. - 01/22/2017 8:34 AM CDT Pap results From: DOMONIQUE JUSTICE APRN, DNP, PLANETARIUM SKY SHOW TECHNICIAN To: CLAUDIA MARTEL Sent: 01/22/2017 08:34:14 CDT Subject: Pap results Hi Claudia, I tried calling the contact number listed and got your answering machine. If you get this portal message prior to us reaching you over the phone, your pap did come back showing atypical squamous cells and you still did test positive for HPV. I have put in an order for colposcopy, and you can call to get that scheduled at your next earliest convenience. Certainly, if you have questions please let me know! Take care and best wishesDomonique Source: [facility] POWERCHART Document Id: [id number] Miscellaneous - Domonique Justice APRN, D.N.P., Nick.N.P. - 01/11/2017 5:25 PM CDT Ambulatory Patient Summary [address] [id number] Visit Information Name: TAHMINACLAUDIA BARBOUR [facility] Number: [id number] Current Date: 01/11/2017 17:25:13 Physicians Attending Provider: DOMONIQUE JUSTICE APRN, DNP, CNP Primary Care Provider: DOMONIQUE JUSTICE APRN, DNP, CNP CLAUDIA MARTEL has been given the following list of follow-up instructions, medication list, and patient education materials: Follow-up Instructions Your Medications Here is a list of your medications. It is important to take your medications as directed. Use a pillbox or chart to help remind you to take your medications. Please let your doctor or nurse know if you have problems taking your medications. Medication/Strength How to Take Indications/Special Instructions/Comments/Notes for Patient Medication Changes/Routing acetaminophen (Tylenol) See Instructions PO levonorgestrel-ethinyl estradiol (levonorgestrel-ethinyl estradiol 0.15 mg-30 mcg oral tablet) 1 Tablet(s), Oral, once a day magnesium citrate (magnesium citrate) 300 Milliliter, Oral, as needed Restless legs pimecrolimus topical (Elidel 1% topical cream) 1 mery, Topical, two times a day Stop Taking the Following Medications: calcium-vitamin D (Calcium 500+D) Medication list as of 01-11-17 17:25 Attention: If you have any medications at home that are not on this list, DO NOT take them until youcontact your provider for clarification. Give a copy of your medication list to your primary care provider. Update your medication list any time medications or doses are changed and carry your medication list at all times in case of emergency. Electronically Signed By: DOMONIQUE JUSTICE APRN, DNP, PLANETARIUM SKY SHOW TECHNICIAN Signed On:11-JAN-2017 17:25:11 Your Allergies & Intolerances Substance Reaction Symptoms Category Comments lidocaine Urticaria Drug amoxicillin Drug Maalox Urticaria Drug Zithromax Z-Juan rash Drug Your Problem List Problem Status Onset Comments Whiplash Active 10/15/2007 History of PDA WITH SURGICAL REPAIR Active 02/14/10 AT AGE 11 Revision septoplasty Active Oral contraception Active General examination of patient Active Exam General Medical NOS (GME) Active Cough Bronchospastic Active Body Mass Index (BMI) Less Than 19 Adult Active Dermatitis Eyelid NOS Active Lesion Skin Back Active Melanoma Fam Hx Active Your Upcoming Appointments Date Time Location Provider No Appointments found Attention: Contact your local Clinic if further appointment detail needed. Consider Using Patient Online Services Patient Online Services is a secure online and Mobile application that lets you: ?? View lab and test results ?? View portions of your medical record including clinical notes, immunizations and discharge summaries ?? Request an appointment or medication refill ?? Review your appointment schedule ?? Send secure messages to your care team Its easy to create an account if you dont have one. Go to [email or web address] and click on Create Your Account. Then, follow the directions to complete the online form. Youll be asked for your [facility] number which you can find at the top of this document. Your Goals/Additional instructions: Source: [facility] POWERCHART Document Id: [id number] Miscellaneous - Domonique Justice APRN, D.N.P., C.N.P. - 01/11/2017 5:25 PM CDT Ambulatory Discharge Medication List [facility] [address] [place] [id number] Visit Information Name: CLAUDIA MARTEL [facility] Number: [id number] Current Date: 01/11/2017 17:25:13 Attending Provider: DOMONIQUE JUSTICE APRN, DNP, CNP Primary Care Provider: DOMONIQUE JUSTICE APRN, DNP, CNP CLAUDIA MARTEL has been given the following list of medications: Your Medications It is important to take your medications as directed. Use a pill box or chart to help remind you to take your medications. Please let your doctor or nurse know if you have problems taking your medications. Medication/Strength How to Take Indications/Special Instructions/Comments/Notes for Patient Medication Changes/Routing acetaminophen (Tylenol) See Instructions PO levonorgestrel-ethinyl estradiol (levonorgestrel-ethinyl estradiol 0.15 mg-30 mcg oral tablet) 1 Tablet(s), Oral, once a day magnesium citrate (magnesium citrate) 300 Milliliter, Oral, as needed Restless legs pimecrolimus topical (Elidel 1% topical cream) 1 mery, Topical, two times a day Stop Taking the Following Medications: calcium-vitamin D (Calcium 500+D) Medication list as of 01-11-17 17:25 Attention: If you have any medications at home that are not on this list, DO NOT take them until youcontact your provider for clarification. Give a copy of your medication list to your primary care provider. Update your medication list any time medications or doses are changed and carry your medication list at all times in case of emergency. Electronically Signed By: DOMONIQUE JUSTICE APRN, DNP, CNP Signed On:11-JAN-2017 17:25:11 Additional Information: Source: [facility] POWERCHART Document Id: [id number] Miscellaneous - Coreen Alfonso L.P.N. - 01/11/2017 3:49 PM CDT Adult Radiation Oncologist Intake/History Adult Radiation Oncologist Intake/History Entered On: 01/11/2017 15:51 CDT Performed On: 01/11/2017 15:49 CDT by COREEN ALFONSO LPN Intake Chief Complaint : Physical; irregular periods; skin check LMP Date : irregular Peripheral Pulse Rate : 70 /min Systolic Blood Pressure : 118 mmHg Diastolic Blood Pressure : 70 mmHg NIBP Mean : 86 mmHg BP Location : Right upper extremity Blood Pressure Cuff Size : Regular Height : 172 cm(Converted to: 5 ft 8 inch(es), 68 inch(es)) Actual Weight : 54.8 kg(Converted to: 120 lb 13 oz) Dosing Weight Clinic : 54.8 kg Clinic BSA : 1.62 Body Mass Index : 18.52 kg/m2 COREEN ALFONSO LPN - 01/11/2017 15:49 CDT General Info Information Given By : Patient Preferred Communication Mode : Verbal Languages : Swiss Is Patient Female and 13-50 no hysterectomy : Yes Status : Patient denies Are you ? : No COREEN ALFONSO LPN - 01/11/2017 15:49 CDT Subjective Pain Symptoms : No COREEN ALFONSO LPN - 01/11/2017 15:49 CDT Dependent Habits Exposure to Tobacco Smoke : Other: Never Smoking Status : Never smoker Tobacco 2A : No Tobacco Use/Currently Using : No Tobacco Use/Last 30 Days : No Tobacco Use/Last 12 months : No COREEN ALFONSO LPN - 01/11/2017 15:49 CDT Source: [facility] POWERCHART Document Id: [id number] CDT!31 documented in this encounter Plan of Treatment Not on filedocumented as of this encounter Procedures Procedure Name Priority Date/Time Associated Diagnosis Comme nts PATHOLOGY DRIVER STARTING GATE Routine 01/11/2017 12:00 AM Results for this CYTOLOGY CDT procedure are i n the results section. documented in this encounter Results Pathology DRIVER STARTING GATE Cytology (01/11/2017 12:00 AM CDT) Specimen (Source) Anatomical Location Collection Method / Collectio n Time Received Time / Laterality Volume 01/11/2017 Narrative [facility] - 01/19/2017 1:28 PM CDT [facility] in [place] [address] [place], [place] ??[address] Patient Name: CLAUDIA MARTEL Patient ID #: [id number] Collected: 01/11/2017 Address: City/State/Zip: [facility] [place], [place] ??[id number] Received: Reported: 01/12/2017 01/19/2017 Soc. Sec. #: ?/Age/Sex 1990 (Age: 26) ??F Physician(s): LINDA JUSTICE APRN Copy To: ? [facility] ?? [id number] [facility], ??[place] ??[address] CYTOPATHOLOGY DRIVER STARTING GATE REPORT FINAL CYTOLOGIC DIAGNOSIS Pap Smear - ThinPrep with HPV: EPITHELIAL CELL ABNORMALITY SQUAMOUS INTRAEPITHELIAL LESION: ??LOW G RADE VERSUS HIGH GRADE (RAMEZ 1-2/MILD TO MODERATE DYSPLASIA). HISTORY OF ABNORMAL CYTOLOGY NOTED. ENDOCERVICAL CELLS/COMPONENT PRESENT. RECOMMEND COLPOSCOPY AND BIOPSY WITH END OCERVICAL SAMPLING IF CLINICALLY INDICATED. SATISFACTORY SPECIMEN FOR EVALUATION. ??This specimen required a physician interpretation under CLIA 1987 ?? Electronically Signed Out By mpg/01/19/2017 MD GIRISH WHITTEN(ASCP) The Pap test is a screening procedure an d, as such, is subject to both false positive and false negative results as evidenced by published data. ??It is not a diagnostic test and results should be inter preted in the context of the patient's h istory and other clinical findings. ??Obtaining per iodic Pap tests may help to minimize the consequences of any false negatives that may occur. Procedures/Addenda: HUMAN PAPILLOMA VIRUS ADDENDUM ? Baltazar e Ordered: ? 01/12/2017 ? Status: ??Signed Out Date Complete: ? 01/19/2017 ? By: ??DL Streich CT(ASCP) Date Reported: ? 01/19/2017 INTERPRETATION: Test: Aptima High Risk HPV Result: POSITIVE FOR HIGH RISK HPV Specimen Description: ThinPrep? ?? Pap Test PreservCyt Solution HPV by Crematorium Operator-Mediated Amplificat ion (TMA) for E6/E7 viral messenger RNA (mRNA) is an in-vitro diagnostic test for the detection of 14 high-risk Human Papillomavirus (HPV) types (16, 18, 31, 33, 35, 39, 45, 51, 52, 56, 58, 59, 66, and 68) in cervical specimen. Intended for co-testi ng or reflex testing of ASC-US Pap smears. Interpretation for patients with ASC-US cytology: Low but increased likelihood that underlying high-grade RAMEZ will be detected with colposcopy. Medical literature suggests that progression to high grade disease is possible. Interpretation for patients with NILM cy tology who are over 30 years old: Low likelihood of underlying high-grade RAMEZ; HPV infection may be transient, resolving or persistent. Per protocol, if Aptima high-risk HPV is positive the test will reflex to HPV with genotyping, TMA, ThinPrep. See results below. HPV with Genotyping, TMA, ThinPrep HPV High Risk Type 16, TMA ? NEGATIVE HPV High Risk Type 18/45, TMA ? NEGATIVE SPECIMEN(S) RECEIVED: Pap Smear - ThinPrep with HPV CLINICAL HISTORY: Date of Last Menstrual Period: 01/10/2017 Hormonal History: Hormone therapy Other Clinical Conditions: HPV TYPING REQUESTED Domonique Justice APRN C.N.P., D.N.P. LAB PAP ECCYATH Kennedy SANCHEZ Performing Organization Address City/State/ZIP Code Phon e Number [facility] documented in this encounter Visit Diagnoses Not on filedocumented in this encounter Care Teams Intelligent Systems Engineer Relationship Specialty Start Date End Date Domonique Justice APRN C.N.P., D.N.P. PCP - General 10/19/16 [address] [place] [phone] documented as of this encounter
--- OUTSIDE RECORDS SUMMARY | 2021-12-14 01:30 | XMS_ITS | Encounter Summary ---
:1990 Author Organization [facility] Address [address] [place] [address] Care Team Providers Name Role Phone Domonique Jones APRN, C.N.PSymone, D.N.P. Primary Care Provider Encounter Details Date Type Department Care Team Description 01/17/2017 Hospital Encounter HX [facility] Tabitha Snyder M.D. [address] [facility] [place] [address] (Wo rk) Social History Tobacco Use [...] week 03/05/2021 How often do you attend congregational or advent services? Never 03/05/2021 Do you belong to any clubs or organizations such as congregational N o 03/05/2021 groups, unions, fraternal or [...] documented as of this encounter Miscellaneous Notes Miscellaneous - Conversion, Historical Provider Ser - 01/17/2017 11:59 PM CDT Coding Summary-Paper Based CODING DATE: 01/30/2017 FINAL [facility] STATUS: * Discharged to Home or Self Care PAYOR: [employer] ADMIT DX: REASON FOR VISIT DX: FINAL DX: PRINCIPAL: S50.369A Insect bite (nonvenomous) of unspecified elbow, initial encounter SECONDARY: PROCEDURES DOCTOR NAME DATE NOTE: The code number assigned matches the documented diagnosis and / or procedure in the patient's chart. However, the narrative phrase printed from the coding software may appear abbreviated, or result in slightly different terminology. Coded By: RODOLFO HIRSCH Date Saved: 01/30/2017 08:11 am [facility] Document Id: [id number] documented in this encounter Plan of Treatment Not on filedocumented as of this encounter Visit Diagnoses Not on filedocumented in this encounter Care Teams Long Filler Cigar Roller Machine Relationship Specialty Start Date End Date Domonique Jones APRN, C.N.P., D.N.P. PCP - General 10/19/[address] [place] [address] documented as of this encounter
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
--- OUTSIDE RECORDS SUMMARY | 2021-12-14 01:30 | XMS_ITS | Encounter Summary ---
:1990 Author Organization [facility] Address [address] [place] [address] Care Team Providers Name Role Phone Domonique Jones APRN, C.N.PSymone, D.N.P. Primary Care Provider Encounter Details Date Type Department Care Team Description 05/28/2017 Orders Only Department of Obstetrics and Denis, Yani Harvey APRN, Gynecology in [place], C.N.PSymone, [facility] [address] [place] [address] [facility] [phone] Social History Tobacco Use Types Packs/Day Years [...] How often do you attend congregation or orthodoxy services? Never 03/05/2021 Do you [...] slept in a long term (including now)? Sex Assigned at Date Recorded Female 01/16/2018 3:45 PM CDT documented as of this encounter Plan of Treatment Not on filedocumented as of this encounter Visit Diagnoses Not on filedocumented in this encounter Care Teams Machining Technician Relationship Specialty Start Date End Date Domonique Jones APRN, C.N.P., D.N.P. PCP - General 10/19/16 [address], [place] [address] documented as of this encounter
--- OUTSIDE RECORDS SUMMARY | 2021-12-14 01:30 | XMS_ITS | Encounter Summary ---
:1990 Author Organization [facility] Address [address] [place] [address] Care Team Providers Name Role Phone Unavailable Primary Care Provider Unavailable Encounter Details Date Type Department Care Team Description 07/01/2016 Hospital Encounter HX [facility] Narcisa No M.D. [facility] [place] [address] (Wo rk) Social History Tobacco Use Types [...] week 03/05/2021 How often do you attend jain or jehovah's witness services? Never 03/05/2021 Do you belong to any clubs or organizations such as jain N o 03/05/2021 groups, unions, fraternal or [...] place to sleep or slept in a retirement (including now)? Sex Assigned at Date Recorded Female 01/16/2018 3:45 PM CDT documented as of this encounter Last Filed Vital Signs Vital Sign Reading Time Taken Comments Blood Pressure 124/60 07/01/2016 11:51 AM CLOTH PATTERN MAKER Pulse 82 07/01/2016 11:51 AM CLOTH PATTERN MAKER Temperature - - Respiratory Rate 16 07/01/2016 11:51 AM CLOTH PATTERN MAKER Oxygen Saturation - - Inhaled Oxygen Concentration - - Weight 55.9 kg (123 lb 3.8 oz) 07/01/2016 11:51 AM CLOTH PATTERN MAKER Height 173 cm (5' 8.11) 07/01/2016 11:51 AM CLOTH PATTERN MAKER Body Mass Index 18.68 07/01/2016 11:51 AM CLOTH PATTERN MAKER documented in this encounter Medications at Time [...] as needed documented as of this encounter Progress Notes Narcisa No M.D. - 07/01/2016 11:09 AM CST [id number] CHIEF COMPLAINT/REASON FOR VISIT Cough. HISTORY OF PRESENT ILLNESS Ms. Claudia Beltran is a very pleasant 26-year-old woman who presents with a several days duration of cough and increasing chest pressure and tightness. No nasal congestion. No ear symptoms. No fever,chills or nausea, vomiting. She has been treating with ghyw-avt-ubrvwez Mucinex and Tylenol with no benefit. She is concerned that her symptoms are getting worse. PAST MEDICAL/SURGICAL HISTORY Reviewed. See chart. SYSTEMS REVIEW Reviewed. See chart. ALLERGIES Azithromycin, amoxicillin (though has recently tolerated Augmentin), Maalox and lidocaine. MEDICATIONS Reviewed. See chart. PHYSICAL EXAMINATION VITAL SIGNS: Afebrile. Saturating 97% on room air. Respiratory rate 16, rest per documentation. GENERAL: This is a well-appearing young woman in no acute distress. Frequent dry, raspy cough. HEENT: Bilateral tympanic membranes were well-visualized and revealed no abnormalities. Oral mucosa is pink and moist. Posterior oropharynx somewhat injected, but without cobblestoning. NECK: Positive cervical lymphadenopathy, mild, but neck is supple. HEART: Regular rate and rhythm. LUNGS: Somewhat coarse breath sounds throughout, but no areas of focal consolidation wheezes or rhonchi. IMPRESSION/REPORT/PLAN 1. Bronchitis. I have provided a prescription for Augmentin as well as an albuterol inhaler as I do feel, while shedoes not have pneumonia according to her exam, the coarse breath sounds and apparent reactiveness ofher airway has increased, therefore also warranting an albuterol inhaler during the day, which she has used during previous cold-like illnesses. Follow up with Primary Care as needed. We have discussedreasons to seek additional care and she expressed understanding. Narcisa No M.D./shaneka Electronically Signed By: NARCISA NO MD On: 07/01/2016 09:22 PM Source: [facility] MHSDOLBEYNONRADSYS Document Id: [id number] H PATTERN MAKER documented in this encounter Miscellaneous Notes Miscellaneous - Narcisa No M.D. - 07/01/2016 12:27 PM CST Ambulatory Patient Summary [facility] [address] [place] [id number] Visit Information Name: TAHMINACLAUDIA SYED [facility] Number: [id number] Current Date: 07/01/2016 12:27:24 Physicians Attending Provider: NARCISA NO MD Primary Care Provider: SIMI RICARDO PA-C TAHMINACLAUDIA MEYER has been given the following list of [...] Medication Changes/Routing acetaminophen (Tylenol) See Instructions PO albuterol (albuterol CFC free 90 mcg/inh inhalation aerosol) 2 puff(s), Inhalation, every 4 hours asneeded for Shortness of breath / Wheezing This is a CHANGE Routed to [address] [id number] albuterol (albuterol CFC free 90 mcg/inh inhalation aerosol) 2 puff(s), Inhalation, four times a dayas needed for Shortness of breath / Wheezing 15 to 30min before exercise amoxicillin-clavulanate (Augmentin 875 mg-125 mg oral tablet) 1 Tablet(s), Oral, two times a day x 10 day(s) New Routed to [address] [id number] calcium-vitamin D (Calcium 500+D) 1 Tablet(s), as needed fluticasone-salmeterol (Advair Diskus 100 mcg-50 mcg inhalation powder) 1 puff(s), Inhalation, two times a day magnesium citrate (magnesium citrate) 300 Milliliter, Oral, as needed Restless legs Misc Prescription (Multiple Vitamin- Herbalife) Take 1 tablet, 3x daily Misc Prescription (Cell Activator-Herbalife) Take 1 tablet, 3xday *norgestimate-ethinyl estradiol (TriNessa oral tablet) 1 Tablet(s), Oral, once a day norgestimate-ethinyl estradiol (Mononessa 0.25 mg-35 mcg oral tablet) 1 Tablet(s), Oral, once a day To replace previous prescription for Trinessa. omeprazole (omeprazole 20 mg oral delayed release capsule) 1 cap, Oral, once a day ondansetron (Zofran ODT 4 mg oral tablet, disintegrating) 1 Tablet(s), Oral, three times a day as needed for Nausea/vomiting pimecrolimus topical (Elidel 1% topical cream) 1 mery, Topical, two times a day * You have let us know that you are not taking this medication as listed. Please talk with your primary care provider or the health care provider who prescribed the medication as soon as possible. Stop Taking the Following Medications: Medication list as of 07-01-16 12:27 Attention: If you have any medications at home that are not on this list, DO NOT take them until youcontact your provider for clarification. Give a copy of your medication list to your primary care provider. Update your medication list any time medications or doses are changed and carry your medication list at all times in case of emergency. Electronically Signed By: NARCISA NO MD Signed On:01-JUL-2016 12:27:20 Your Allergies & Intolerances Substance Reaction Symptoms [...] Eyelid NOS Active Lesion Skin Back Active Your Upcoming Appointments Date Time Location [...] if you dont have one. Go to [email or web address] and click on Create Your Account. Then, follow the directions to complete the online form. Youll be asked for your [facility] number which you can find at the top of this document. Your Goals/Additional instructions: Source: [facility] POWERCHART Document Id: [id number] H PATTERN MAKER Miscellaneous - Narcisa No M.D. - 07/01/2016 12:27 PM CST Ambulatory Discharge Medication List [facility] [address] [place], [place] [address], [place] [id number] Visit Information Name: CLAUDIA BELTRAN [facility] Number: [id number] Current Date: 07/01/2016 12:27:23 Attending Provider: NARCISA NO MD Primary Care Provider: SIMI RICARDO PA-C CLAUDIA BELTRAN has been given the following list of medications: Your Medications It is important to take your medications as directed. Use a pill box or chart to help remind you to take your medications. Please let your doctor or nurse know if you have problems taking your medications. Medication/Strength How to Take Indications/Special Instructions/Comments/Notes for Patient Medication Changes/Routing acetaminophen (Tylenol) See Instructions PO albuterol (albuterol CFC free 90 mcg/inh inhalation aerosol) 2 puff(s), Inhalation, every 4 hours asneeded for Shortness of breath / Wheezing This is a CHANGE Routed to [address] [id number] albuterol (albuterol CFC free 90 mcg/inh inhalation aerosol) 2 puff(s), Inhalation, four times a dayas needed for Shortness of breath / Wheezing 15 to 30min before exercise amoxicillin-clavulanate (Augmentin 875 mg-125 mg oral tablet) 1 Tablet(s), Oral, two times a day x 10 day(s) New Routed to [address] [id number] calcium-vitamin D (Calcium 500+D) 1 Tablet(s), as needed fluticasone-salmeterol (Advair Diskus 100 mcg-50 mcg inhalation powder) 1 puff(s), Inhalation, two times a day magnesium citrate (magnesium citrate) 300 Milliliter, Oral, as needed Restless legs Misc Prescription (Multiple Vitamin- Herbalife) Take 1 tablet, 3x daily Misc Prescription (Cell Activator-Herbalife) Take 1 tablet, 3xday *norgestimate-ethinyl estradiol (TriNessa oral tablet) 1 Tablet(s), Oral, once a day norgestimate-ethinyl estradiol (Mononessa 0.25 mg-35 mcg oral tablet) 1 Tablet(s), Oral, once a day To replace previous prescription for Trinessa. omeprazole (omeprazole 20 mg oral delayed release capsule) 1 cap, Oral, once a day ondansetron (Zofran ODT 4 mg oral tablet, disintegrating) 1 Tablet(s), Oral, three times a day as needed for Nausea/vomiting pimecrolimus topical (Elidel 1% topical cream) 1 mery, Topical, two times a day * You have let us know that you are not taking this medication as listed. Please talk with your primary care provider or the health care provider who prescribed the medication as soon as possible. Stop Taking the Following Medications: Medication list as of 07-01-16 12:27 Attention: If you have any medications at home that are not on this list, DO NOT take them until youcontact your provider for clarification. Give a copy of your medication list to your primary care provider. Update your medication list any time medications or doses are changed and carry your medication list at all times in case of emergency. Electronically Signed By: NARCISA NO MD Signed On:01-JUL-2016 12:27:20 Additional Information: Source: [facility] POWERCHART Document Id: [id number] H PATTERN MAKER Miscellaneous - Carin Austin, R.M.A. - 07/01/2016 11:51 AM CST Adult Application Development Specialist Intake/History Adult Application Development Specialist Intake/History Entered On: 07/01/2016 11:53 CLOTH PATTERN MAKER Performed On: 07/01/2016 11:51 CLOTH PATTERN MAKER by CARIN AUSTIN [facility] Intake Chief Complaint : Cough Fatigue Onset of Symptoms : Sunday Temperature Oral : 36.8 DegC(Converted to: 98.2 DegF) Peripheral Pulse Rate : 82 /min Respiratory Rate : 16 /min Systolic Blood Pressure : 124 mmHg Diastolic Blood Pressure : 60 mmHg NIBP Mean : 81 mmHg BP Location : Right upper extremity SpO2 : 97 % Height : 173 cm(Converted to: 5 ft 8 inch(es), 68 inch(es)) Actual Weight : 55.9 kg(Converted to: 123 lb 4 oz) Dosing Weight Clinic : 55.9 kg Clinic BSA : 1.64 Body Mass Index : 18.68 kg/m2 CARIN AUSTIN - 07/01/2016 11:51 CLOTH PATTERN MAKER General Info Languages : Portuguese Is Patient Female and 13-50 no hysterectomy : Yes Status : Patient denies Are you ? : No CARIN AUSTIN - 07/01/2016 11:51 CLOTH PATTERN MAKER Subjective Pain Symptoms : No CARIN AUSTIN - 07/01/2016 11:51 CLOTH PATTERN MAKER Dependent Habits Exposure to Tobacco Smoke : Other: Never Smoking Status : Never smoker Tobacco 2A : No Tobacco Use/Currently Using : No Tobacco Use/Last 30 Days : No Tobacco Use/Last 12 months : No CARIN AUSTIN [facility] - 07/01/2016 11:51 CLOTH PATTERN MAKER Source: [facility] POWERCHART Document Id: [id number] CLOTH PATTERN MAKER!31 H PATTERN MAKER documented in this encounter Plan of Treatment Not on filedocumented as of this encounter Visit Diagnoses Not on filedocumented in this encounter
--- OUTSIDE RECORDS SUMMARY | 2021-12-14 01:30 | XMS_ITS | Encounter Summary ---
:1990 Author Organization [facility] Address [address] [place] [address] Care Team Providers Name Role Phone Domonique Jones APRN, C.N.PSymone, D.N.P. Primary Care Provider Encounter Details Date Type Department Care Team Description 03/14/2017 Hospital Encounter Department of Israel [facility] Laboratory Medicine Candice Schmidt Initial in [place], [address] [place] [address] [address] [address] [place], [place] [phone] [address] (Work) [phone] Social History Tobacco Use Types Packs/Day Years [...] week 03/05/2021 How often do you attend moravian or yarsanism services? Never 03/05/2021 Do you belong to any clubs or organizations such as moravian N o 03/05/2021 groups, unions, fraternal or [...] 10/12/2020 (for_TYLENOL) 325 mg Instructions, PO tablet norethindrone ac-eth Take 1 tablet by 0 7 05/28/2017 estradiol (LOESTRIN mouth daily. 1.5, 21,) 1.5-30 mg-mcg tablet pimecrolimus (ELIDEL) 1 Apply 1 application 0 04/201603/21/2021 % cream topically 2 (two) times a day. Patient stated she uses as needed documented as of this encounter Plan of Treatment Not on filedocumented as of this encounter Procedures Procedure Name Priority Date/Time Associated Diagnosis Comme nts HEPATITIS B SURFACE Routine 03/14/2017 3:35 PM Open Bite Right Results for this ANTIGEN BRUSH TRIMMING MACHINE SETTER Buttock Initial procedure ar e in the results section. documented in this encounter Results Hepatitis B Surface Antigen (03/14/2017 3:35 PM BRUSH TRIMMING MACHINE SETTER) [facility] Method Time Signature HBs Antigen, Nonreactive Nonreactive 03/14/2017 [facility] S 9:42 PM [facility] Comment: Biotin has been identified by the markos candelario as a potential interfering substance. ??Higher concentr ations of biotin may be found in multivitamins, hair/nail supple ments, and workout supplements. ??If the result does not ma [facility] clinical observations, repeat testing after patient refrains fr om the use of supplements for at least 12 hours. Specimen Anatomical Collection Method Collection Time Receive d Time (Source) Location / / Volume Laterality Blood (Blood, 03/14/2017 3:35 PM 03/14/20 17 9:08 Venous) BRUSH TRIMMING MACHINE SETTER PM BRUSH TRIMMING MACHINE SETTER Luma Gibbs M.D. LAB MICROBIOLOGY - BLOOD ORD ERABLES Performing Organization Address City/State/ZIP Code Phon e Number [facility]- [address] [place] [address] [facility] documented in this encounter Visit Diagnoses Diagnosis Open Bite Right Buttock Initial documented in this encounter Care Teams Power Shovel Engineer Relationship Specialty Start Date End Date Domonique Jones APRN, C.N.P., D.N.P. PCP - General 10/19/16 [address], [place] [address] documented as of this encounter
--- OUTSIDE RECORDS SUMMARY | 2021-12-14 01:30 | XMS_ITS | Encounter Summary ---
:1990 Author Organization [facility] Address [address] [place] [address] Care Team Providers Name Role Phone Domonique Jones APRN, C.N.P., D.N.P. Primary Care Provider Encounter Details Date Type Department Care Team Description 03/14/2017 Nurse Triage Department of Patrica Zhu Medicine, [facility], R.N. in [place], [place] [address] [place] [address] [place] [address] [phone] Social History Tobacco Use Types Packs/Day Years [...] week 03/05/2021 How often do you attend baptism or orthodoxy services? Never 03/05/2021 Do you belong to any clubs or organizations such as baptism N o 03/05/2021 groups, unions, fraternal or [...] place to sleep or slept in a jail (including now)? Sex Assigned at Date Recorded Female 01/16/2018 3:45 PM CDT documented as of this encounter Miscellaneous Notes Telephone Encounter - Patrica Don R.N. - 03/14/2017 1:37 PM MANAGER TALENT ACQUISITION Patient was instructed to be seen for this injury since it occurred at work. GER TALENT ACQUISITION documented in this encounter Plan of Treatment Not on filedocumented as of this encounter Visit Diagnoses Not on filedocumented in this encounter Care Teams Academic Affairs Vice President Relationship Specialty Start Date End Date Domonique Jones APRN, C.N.P., D.N.P. PCP - General 10/19/16 [address] [place] [id number] documented as of this encounter
--- OUTSIDE RECORDS SUMMARY | 2021-12-14 01:30 | XMS_ITS | Encounter Summary ---
:1990 Author Organization [facility] Address [address] [place] [address] Care Team Providers Name Role Phone Domonique Jones APRN, C.N.PSymone, D.N.P. Primary Care Provider Encounter Details Date Type Department Care Team Description 03/30/2017 E-Visit Department of Family Alia Monroe R E: E-Visit Submission: Medicine, Edyta VALENTINE, C.N.P. Cold (upper respiratory Clinic, in [place], [address] [facility] illness) [place], [place] [address] [address] [place] [address] [facility] [phone] Social History Tobacco Use Types Packs/Day Years [...] week 03/05/2021 How often do you attend jew or christianity services? Never 03/05/2021 Do you belong to any clubs or organizations such as jew N o 03/05/2021 groups, unions, fraternal or [...] of this encounter Visit Diagnoses Diagnosis Infection Urinary Tract - Primary documented in this encounter Care Teams Skiving Machine Operator Relationship Specialty Start Date End Date Domonique Jones APRN, C.N.P., D.N.P. PCP - General 10/19/16 [address] [place] [phone] documented as of this encounter
--- OUTSIDE RECORDS SUMMARY | 2021-12-14 01:30 | XMS_ITS | Encounter Summary ---
:1990 Author Organization [facility] Address [address] [place] [address] Care Team Providers Name Role Phone Domonique Jones APRN, C.N.P., D.N.P. Primary Care Provider Encounter Details Date Type Department Care Team Description 01/11/2017 Hospital Encounter HX NO MAPPING Domonique Jones AP RN, C.N.P., D.N.P. [address] [facility] [place] [phone] (Wo rk) Social History [...] week 03/05/2021 How often do you attend scientologist or pentecostalism services? Never 03/05/2021 Do you belong to any clubs or organizations such as scientologist N o 03/05/2021 groups, unions, fraternal or [...] Miscellaneous - Conversion, Historical Provider Ser - 01/11/2017 11:59 PM CDT Coding Summary-Paper Based CODING DATE: 01/23/2017 FINAL [facility] STATUS: * Discharged to Home or Self Care PAYOR: [employer] ADMIT DX: REASON FOR VISIT DX: FINAL DX: PRINCIPAL: Z12.4 Encounter for screening for malignant neoplasm of cervix SECONDARY: R87.618 Other abnormal cytological findings on specimens from cervix uteri Z92.89 Personal history of other medical treatment PROCEDURES DOCTOR NAME DATE NOTE: The code number assigned matches the documented diagnosis and / or procedure in the patient's chart. However, the narrative phrase printed from the coding software may appear abbreviated, or result in slightly different terminology. Coded By: SILVANO HANNAH Date Saved: 01/23/2017 11:35 am [facility] Document Id: [id number] documented in this encounter Plan of Treatment Not on filedocumented as of this encounter Visit Diagnoses Not on filedocumented in this encounter Care Teams Granulator Tender Relationship Specialty Start Date End Date Romportl, Lynsi N, CODING COMPLIANCE MANAGER, C.N.P., D.N.P. PCP - General 10/19/16 [address] [place] [phone] documented as of this encounter
--- OUTSIDE RECORDS SUMMARY | 2021-12-14 01:30 | XMS_ITS | Encounter Summary ---
:1990 Author Organization [facility] Address [address] [place] [address] Care Team Providers Name Role Phone Unavailable Primary Care Provider Unavailable Encounter Details Date Type Department Care Team Description 04/29/2016 Hospital Encounter HX [facility] Mickey Andres, URGENTCAR P.A.-C. [address], [address] [place], [place] [address] (Wo rk) Social History Tobacco Use Types [...] week 03/05/2021 How often do you attend scientology or temple services? Never 03/05/2021 Do you belong to any clubs or organizations such as scientology N o 03/05/2021 groups, unions, fraternal or [...] place to sleep or slept in a long-term (including now)? Sex Assigned at Date Recorded Female 01/16/2018 3:45 PM CDT documented as of this encounter Last Filed Vital Signs Vital Sign Reading Time Taken Comments Blood Pressure 105/55 04/29/2016 10:28 AM CORRECTIONAL SUBSTANCE ABUSE COUNSELOR Pulse 88 04/29/2016 10:28 AM CORRECTIONAL SUBSTANCE ABUSE COUNSELOR Temperature - - Respiratory Rate 16 04/29/2016 10:28 AM CORRECTIONAL SUBSTANCE ABUSE COUNSELOR Oxygen Saturation - - Inhaled Oxygen Concentration - - Weight 56.4 kg (124 lb 5.4 oz) 04/29/2016 10:28 AM CORRECTIONAL SUBSTANCE ABUSE COUNSELOR Height 173 cm (5' 8.11) 04/29/2016 10:28 AM CORRECTIONAL SUBSTANCE ABUSE COUNSELOR Body Mass Index 18.84 04/29/2016 10:28 AM CORRECTIONAL SUBSTANCE ABUSE COUNSELOR documented in this encounter Medications at Time [...] documented as of this encounter Progress Notes Mickey Carmen P.A.-C. - 04/29/2016 10:22 AM CST [id number] CHIEF COMPLAINT/REASON FOR VISIT Having low back pain, worse on left side. HISTORY OF PRESENT ILLNESS This is a 26-year-old female that has developed low back pain over the last 3 days. She reports she has had low back pain before. It started Sunday. She felt very stiff. She went to the gym and running and walking seemed to improve it but then it got worse. She was seen by her chiropractor and adjustments did not help. She reports pain with sitting and standing. No radiculopathy noted. No weaknessor bowel or bladder retention or incontinence. No history of trauma. VITAL SIGNS Temp 36.4, heart rate 88, respiratory rate 16, blood pressure 120/55. PHYSICAL EXAMINATION GENERAL: Alert and oriented x3. No distress. Walking around favoring back. BACK: Nontender to palpation over the thoracic, lumbar spine. Palpation over the sacroiliac region of the low back. Also palpation over the paraspinal vertebral muscles bilaterally and over buttock regions bilaterally. 5/5 strength with dorsi, plantar flexion of feet, flexion, extension of knees, abduction and adduction of thighs. Knee reflexes +1, intact. Straight leg was negative for radiculopathy bilaterally. IMPRESSION/REPORT/PLAN DIAGNOSIS: Acute lumbar strain. PLAN: Treat the patient with Toradol 30 mg today. Flexeril for spasm. Ibuprofen starting about 8 hours from Toradol shot. Recommended 2 to 3 tablets 3 times a day with food. Heat to the back, gentle stretching and walking is recommended. Follow up with her primary doctor if symptoms do not improve. Mickey Carmen P.A.-C./shaneka Electronically Signed By: MICKEY CARMEN PA-C On: 05/02/2016 08:10 AM Source: [facility] MHSDOLBEYNONRADSYS Document Id: [id number] ECTIONAL SUBSTANCE ABUSE COUNSELOR documented in this encounter Nursing Notes Saba Elliott C.MMaryan - 04/29/2016 12:36 PM CST MEDICATION ERROR Patient [facility] for [facility] pain. WILFRED Phan, had ordered 60mg, IM. Instead of giving the patient 60mg nurse gave an overdose of 120mg. Nurse thought the 60mg vial was 30mg vial. Doctor was informed as well as the patient by phone. Nurse gave patient instructions to go [facility] ER if she has the following symptoms: vomiting, blood in urine, blood in feces. Nurse will inform her spring production supervisor as well. Electronically Signed By: SABA ELLIOTT CMA On: 04/29/2016 12:40 PM Source: [facility] POWERCHART Document Id: [id number] ECTIONAL SUBSTANCE ABUSE COUNSELOR documented in this encounter Miscellaneous Notes Miscellaneous - Mickey Carmen P.A.-C. - 04/29/2016 10:55 AM CST Ambulatory Patient Summary [facility] [address] [facility] [place] [id number] Visit Information Name: CLAUDIA MARTEL [facility] Number: [id number] Current Date: 04/29/2016 10:55:53 Physicians Attending Provider: MICKEY CARMEN PA-C Primary Care Provider: CHELY RICARDO PA-C CLAUDIA MARTEL has been given the following [...] / Wheezing 15 to 30min before exercise calcium-vitamin D (Calcium 500+D) 1 Tablet(s), as needed cyclobenzaprine (Flexeril 5 mg oral tablet) 1 Tablet(s), Oral, three times a day as needed for Muscle spasm x 7 day(s) New [facility] to [facility] [address] [facility] [place] [id number] fluticasone-salmeterol (Advair Diskus 100 mcg-50 mcg inhalation powder) 1 puff(s), Inhalation, two times a day magnesium citrate (magnesium citrate) 300 Milliliter, Oral, as needed Restless legs Misc Prescription (Multiple Vitamin- Herbalife) Take 1 tablet, 3x daily Misc Prescription (Cell Activator-Herbalife) Take 1 tablet, 3xday norgestimate-ethinyl estradiol (TriNessa oral tablet) 1 Tablet(s), Oral, once a day omeprazole (omeprazole 20 mg oral delayed release capsule) 1 cap, Oral, once a day ondansetron (Zofran ODT 4 mg oral tablet, disintegrating) 1 Tablet(s), Oral, three times a day as needed for Nausea/vomiting pimecrolimus topical (Elidel 1% topical cream) 1 mery, Topical, two times a day Stop Taking the Following Medications: Medication list as of 04-29-16 10:55 Attention: If you have any medications at home that are not on this list, DO NOT take them until youcontact your provider for clarification. Give a copy of your medication list to your primary care provider. Update your medication list any time medications or doses are changed and carry your medication list at all times in case of emergency. Electronically Signed By: MICKEY CARMEN PA-C Signed On:29-APR-2016 10:55:49 Your Allergies & Intolerances Substance Reaction Symptoms [...] Your Upcoming Appointments Date Time Location Provider 05/24/2016 15:15 [facility] Luz KENNEDY, Chely Young Attention: Contact your local Clinic if further [...] if you dont have one. Go to [email or web address] and click on Create Your Account. Then, follow the directions to complete the online form. Youll be asked for your [facility] number which you can find at the top of this document. Your Goals/Additional instructions: Source: [facility] POWERCHART Document Id: [id number] ECTIONAL SUBSTANCE ABUSE COUNSELOR Miscellaneous - Mickey Carmen P.A.-C. - 04/29/2016 10:55 AM CST Ambulatory Discharge Medication List [facility] [address] [place], [place] [address], [place] [id number] Visit Information Name: CLAUDIA MARTEL [facility] Number: [id number] Current Date: 04/29/2016 10:55:52 Attending Provider: MICKEY CARMEN PA-C Primary Care Provider: CHELY RICARDO PA-C CLAUDIA MARTEL has been given the following [...] / Wheezing 15 to 30min before exercise calcium-vitamin D (Calcium 500+D) 1 Tablet(s), as needed cyclobenzaprine (Flexeril 5 mg oral tablet) 1 Tablet(s), Oral, three times a day as needed for Muscle spasm x 7 day(s) New Routed to [facility] [address] [place] [id number] fluticasone-salmeterol (Advair Diskus 100 mcg-50 mcg inhalation powder) 1 puff(s), Inhalation, two times a day magnesium citrate (magnesium citrate) 300 Milliliter, Oral, as needed Restless legs Misc Prescription (Multiple Vitamin- Herbalife) Take 1 tablet, 3x daily Misc Prescription (Cell Activator-Herbalife) Take 1 tablet, 3xday norgestimate-ethinyl estradiol (TriNessa oral tablet) 1 Tablet(s), Oral, once a day omeprazole (omeprazole 20 mg oral delayed release capsule) 1 cap, Oral, once a day ondansetron (Zofran ODT 4 mg oral tablet, disintegrating) 1 Tablet(s), Oral, three times a day as needed for Nausea/vomiting pimecrolimus topical (Elidel 1% topical cream) 1 mery, Topical, two times a day Stop Taking the Following Medications: Medication list as of 04-29-16 10:55 Attention: If you have any medications at home that are not on this list, DO NOT take them until youcontact your provider for clarification. Give a copy of your medication list to your primary care provider. Update your medication list any time medications or doses are changed and carry your medication list at all times in case of emergency. Electronically Signed By: MICKEY CARMEN PA-C Signed On:29-APR-2016 10:55:49 Additional Information: Source: [facility] POWERCHART Document Id: [id number] ECTIONAL SUBSTANCE ABUSE COUNSELOR Miscellaneous - Flaco Garcia L.P.N. - 04/29/2016 10:28 AM CST Adult Community Coordinator Intake/History Adult Community Coordinator Intake/History Entered On: 04/29/2016 10:30 CORRECTIONAL SUBSTANCE ABUSE COUNSELOR Performed On: 04/29/2016 10:28 CORRECTIONAL SUBSTANCE ABUSE COUNSELOR by FLACO GARCIA LPN Intake Chief Complaint : Pt is having mid lower back that is worse on the left side always there but radiates/spasms at times Onset of Symptoms : x 3 days Temperature Oral : 36.4 DegC(Converted to: 97.5 DegF) Peripheral Pulse Rate : 88 /min Respiratory Rate : 16 /min Systolic Blood Pressure : 105 mmHg Diastolic Blood Pressure : 55 mmHg NIBP Mean : 72 mmHg BP Location : Right upper extremity Blood Pressure Cuff Size : Regular Height : 173 cm(Converted to: 5 ft 8 inch(es), 68 inch(es)) Actual Weight : 56.4 kg(Converted to: 124 lb 5 oz) Dosing Weight Clinic : 56.4 kg Clinic BSA : 1.65 Body Mass Index : 18.84 kg/m2 FLACO GARCIA LPN - 04/29/2016 10:28 CORRECTIONAL SUBSTANCE ABUSE COUNSELOR General Info Information Given By : Patient Preferred Communication Mode : Verbal Languages : [place] Is Patient Female and 13-50 no hysterectomy : Yes Status : Patient denies Are you ? : No FLACO GARCIA CLINICAL TECHNICIAN 04/29/2016 10:28 CORRECTIONAL SUBSTANCE ABUSE COUNSELOR Subjective Pain Symptoms : Yes FLACO GARCIA CLINICAL TECHNICIAN 04/29/2016 10:28 CORRECTIONAL SUBSTANCE ABUSE COUNSELOR Pain Scale Pain Scale Verbal 0-10 : Open FLACO GARCIA CLINICAL TECHNICIAN 04/29/2016 10:28 CORRECTIONAL SUBSTANCE ABUSE COUNSELOR Pain Pain Assessment Grid Pain 1 Location : Lower back Intensity : 10 FLACO GARCIA CLINICAL TECHNICIAN 04/29/2016 10:28 CORRECTIONAL SUBSTANCE ABUSE COUNSELOR Dependent Habits Exposure to Tobacco Smoke : Other: Never Smoking Status : Never smoker Tobacco 2A : No Tobacco Use/Currently Using : No Tobacco Use/Last 30 Days : No Tobacco Use/Last 12 months : No FLACO GARCIA CLINICAL TECHNICIAN 04/29/2016 10:28 CORRECTIONAL SUBSTANCE ABUSE COUNSELOR Source: [facility] [employer] Document Id: [id number] CORRECTIONAL SUBSTANCE ABUSE COUNSELOR!40 ECTIONAL SUBSTANCE ABUSE COUNSELOR documented in this encounter Plan of Treatment Not on filedocumented as of this encounter Visit Diagnoses Not on filedocumented in this encounter
--- OUTSIDE RECORDS SUMMARY | 2021-12-14 01:30 | XMS_ITS | Encounter Summary ---
:1990 Author Organization [facility] Address [address] [place] [address] Care Team Providers Name Role Phone Domonique Jones APRN, C.N.P., D.N.P. Primary Care Provider Reason for Referral Medication Prior Authorization (Routine) - Closed Specialty Diagnoses / Procedures Referred By Contact Refer red To Contact Hal Joseph M.D. Referral ID Status Reason Start Date Expiration Date Visits Requ ested Visits Authorized [id number] Closed ING MACHINE OPERATOR Reason for Visit Reason Comments Sinusitis Headache Generalized Body Aches Cough Encounter Details Date Type Department Care Team Description 07/01/2017 Office Visit Urgent Care in [place] Cough (Mia anderson Dx); [place] Rhinitis Acute; [address] [place] [address] [facility] [phone] Social History Tobacco Use Types Packs/Day Years [...] week 03/05/2021 How often do you attend christianity or jain services? Never 03/05/2021 Do you belong to any clubs or organizations such as christianity N o 03/05/2021 groups, unions, fraternal or [...] for the very basics like Not v araon hard 03/05/2021 food, housing, medical care, and [...] Sign Reading Time Taken Comments Blood Pressure 115/63 07/01/2017 8:25 AM FOAMING MACHINE OPERATOR Pulse 73 07/01/2017 8:25 AM FOAMING MACHINE OPERATOR Temperature 36.5 ??C (97.7 ??F) 07/01/2017 8:25 AM FOAMING MACHINE OPERATOR Respiratory Rate 20 07/01/2017 8:25 AM FOAMING MACHINE OPERATOR Oxygen Saturation - - Inhaled Oxygen Concentration - - Weight 57.9 kg (127 lb 10.3 oz) 07/01/2017 8:25 AM FOAMING MACHINE OPERATOR Height - - Body Mass Index 19.57 02/22/2017 8:44 AM CDT documented in this encounter Progress Notes Hal Joseph M.D. - 07/01/2017 8:30 AM CST CHIEF COMPLAINT / REASON FOR VISIT Claudia Beltran is a 27 y.o. female who presents for evaluation of Sinusitis; Headache; Generalized Body Aches; and Cough. HISTORY OF PRESENT ILLNESS This 27-year-old female presents with a 2 week history of upper respiratory symptoms that just have not cleared including perception of ???sinus?? , an element of sinus headache, cough, myalgia, and earlier sore throat that has subsided. There has been no temp. No other acute symptomatic concerns are v oiced. SYSTEM REVIEW No other current acute HEENT or cardio respiratory positive. Patient refutes any chance of . MEDICATIONS As per EMR. ALLERGIES Allergies as of 07/01/2017 - Reviewed 07/01/2017 Allergen Reaction Noted ??? Alum-mag hydroxide-simeth Rash 04/20/2016 ??? Amoxicillin Rash and GI intolerance 02/22/2017 ??? Azithromycin Rash 11/25/2010 ??? Lidocaine Rash 04/20/2016 VITALS SIGNS BP 115/63 (BP Location: Right arm, Patient Position: Sitting, Cuff Size: Regular) Pulse 73 Temp 36.5 ??C (Oral) Resp 20 Wt 57.9 kg ? No BMI 19.57 kg/m?? PHYSICAL EXAM General: Mildly ill-appearing female with somewhat full sounding head. HEENT: TMs are clear. Nose is congested. There is reproducible sinus tenderness. Nasopharynx is minimally if at all inflamed. Neck without acute adenopathy. Cardiovascular: Regular. Lungs: Clear IMPRESSION/REPORT/PLAN #1 Cough Protracted Upper respiratory infection with rhinitis/sinusitis/pharyngitis picture #2 Rhinitis Acute As above. #3 Pharyngitis Acute As above. DIAGNOSTIC: Rapid strep screen returns negative. THERAPEUTIC: Taking into consideration the patient's allergy history, will implement doxycycline as per EMR. Haveadditionally recommended Flonase nasal spray. PATIENT EDUCATION: Reviewed the above. Follow-up p.r.n. lack of steady and complete recovery. Hal Joseph M.D. ING MACHINE OPERATOR documented in this encounter Plan of Treatment Not on filedocumented as of this encounter Procedures Procedure Name Priority Date/Time Associated Diagnosis Comme nts RAPID STREP A STAT 07/01/2017 8:41 AM Pharyngitis Acute Res ults for this SCREEN FOAMING MACHINE OPERATOR procedure are i n the results section. BACTERIAL CULTURE, STAT 07/01/2017 8:41 AM Res ults for this THROAT FOAMING MACHINE OPERATOR procedure are i n the results section. documented in this encounter Results Bacterial Culture, Throat (07/01/2017 8:41 AM FOAMING MACHINE OPERATOR) [facility] Method Time Signature Throat No growth of 07/03/2017 [facility] Culture Streptococcus 7:18 AM FOAMING MACHINE OPERATOR [facility] pyogenes [facility] Specimen Anatomical Collection Method Collection Time Receive d Time (Source) Location / / Volume Laterality Throat Swab 07/01/2017 8:41 AM 8 9:48 FOAMING MACHINE OPERATOR PM FOAMING MACHINE OPERATOR Hal Joseph M.D. LAB MICROBIOLOGY - GENERAL O [place] Performing Organization Address City/State/ZIP Code Phon e Number [facility] [address] [place] [address] LAB Rapid Strep A Screen Throat (07/01/2017 8:41 AM FOAMING MACHINE OPERATOR) P athologist Signature Rapid Strep A Negative Negative 07/01/2017 [facility] Screen 8:53 AM FOAMING MACHINE OPERATOR [facility] LAB Specimen Anatomical Collection Method Collection Time Receive d Time (Source) Location / / Volume Laterality Varies (Throat) 07/01/2017 8:41 AM 2017 8:44 FOAMING MACHINE OPERATOR AM FOAMING MACHINE OPERATOR Hal Joseph M.D. LAB MICROBIOLOGY - GENERAL O [place] Performing Organization Address City/State/ZIP Code Phon e Number [facility] [address] [place] [address] LAB documented in this encounter Visit Diagnoses Diagnosis Cough Unspecified Type - Primary Rhinitis Acute Pharyngitis Acute documented in this encounter Care Teams Furnace Unloader Relationship Specialty Start Date End Date Domonique Jones APRN, C.N.P., D.N.P. PCP - General 10/19/16 [address], [place] [id number] documented as of this encounter
--- OUTSIDE RECORDS SUMMARY | 2021-12-14 01:30 | XMS_ITS | Encounter Summary ---
:1990 Author Organization [facility] Address [address] [place] [address] Care Team Providers Name Role Phone Domonique Jones APRN, C.N.Lori, D.N.P. Primary Care Provider Reason for Visit Reason Comments Annual Exam bloating and flatulance . No rmal BMs. Symptoms started about a month ago. Stopped dairy intake but did not make difference Appointment Request (Routine) - Closed Specialty Diagnoses / Procedures Referred By Contact Refer red To Contact Family Medicine Referral ID Status Reason Start Date Expiration Date Visits Requ ested Visits Authorized [id number] Closed 12/05/2017 12/05/2018 1 Encounter Details Date Type Department Care Team Description 01/16/2018 Comprehensive Visit Department of [facility] Karen, General Medical Examination Adult (Primary Dx); Medicine, Edyta Guerrero APRN, Ibis nce; Clinic, in Edyta CSymoneNKarsten, D.N .P. Sprue Celiac Family History; [place] [address] Abnormal Pap Smear Cervix; [address] [place] [id number] Social History Tobacco Use Types Packs/Day [...] How often do you attend islam or alevism services? Never 03/05/2021 Do you belong to [...] Reading Time Taken Comments Blood Pressure 110/60 01/16/2018 3:52 PM CDT Pulse 60 01/16/2018 3:52 PM CDT Temperature 36.8 ??C (98.3 ??F) 01/16/2018 3:52 PM CDT Respiratory Rate 14 01/16/2018 3:52 PM CDT Oxygen Saturation - - Inhaled Oxygen Concentration - - Weight 56.4 kg (124 lb 5.4 oz) 01/16/2018 3:52 PM CDT Height 172 cm (5' 7.72) 01/16/2018 3:52 PM CDT Body Mass Index 19.06 01/16/2018 3:52 PM CDT documented in this encounter Patient Instructions Patient InstructionsDomonique Jones APRN, C.N.P., D.N.P. - 01/16/2018 3:45 PM CDT 1. Try eliminating foods from diet. Common causes of gas are cruciferous vegetables, legumes, certain fruits, artificial sweetners, chewing gum and swallowing excess air. 2. Pap result will be on the portal. Will send back to see Yani Denis if anything is abnormal again. 3. Skin looks okay, continue wearing sunscreen. 4. Can consider stopping oral contraceptive 6 months prior to trying to conceive so you can see whatyour cycles do naturally. Start a vitamin around this time as well. Otherwise just eat healthy and keep exercising. documented in this encounter H&P Notes Domonique Jones APRN, C.N.P., Jian.N.P. - 01/16/2018 3:45 PM CDT CHIEF COMPLAINT / REASON FOR VISIT Claudia Maradiaga is a 28 y.o. female who presents for evaluation of Annual Exam (bloating and flatulance . Normal BMs. Symptoms started about a month ago. Stopped dairy intake but did not make difference ). HISTORY OF PRESENT ILLNESS Claudia Maradiaga is a delightful 28 y.o. female who is here for her annual exam. She needs a repeat pap as she's been following with [facility] for RAMEZ 1 and positive HPV. She mentions are still irregular even with switching to multiple different control pills. She and her are thinking about starting their family in the next year. She inquires about basic preconception health today. Claudia notes that she's also been more gassy. This usually isn't foul smelling, but is happening more often. She was eating keto for 2 years prior to her wedding, but since then has been eating more of a general healthy diet. She notes that she has strong family history of Celiac disease, but she herself hasn't had diarrhea, significant abdominal pain, nausea, vomiting, unintentional weight loss, or bloody or black stools. Her stools are regular. She stopped dairy now for 2 weeks, but this hasn't helped. She wonders what else might be causing this. She drinks only water. She isn't a gum chewer. Claudia got this past year. 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 She remains very active and is a runner. She had a stress fracture in her foot but still now is back running 3 days per week. Claudia does need another annual skin check given that her twin sister had a melanoma a few years ago. She has no moles of particular concern, and is protecting her skin with sunscreen and now avoiding tanning beds. REVIEW OF SYSTEMS Answers for HPI/ROS submitted by the patient on 01/16/2018 No general issues: Yes No eye issues: Yes No ENT issues: Yes No heart issues: Yes No respiratory issues: Yes Abdominal (belly) pain or cramping: Yes No muscle/bone issues: Yes No skin issues: Yes No neurologic issues: Yes No mental health issues: Yes No blood/lymph issues: Yes No urinary/reproductive issues: Yes PAST MEDICAL/SURGICAL HISTORY Patient Active Problem List Diagnosis ??? Melanoma Family History ??? Nasal Septoplasty Status Post Past Surgical History: Procedure Laterality Date ??? NASAL SEPTOPLASTY ??? SUBMUCOUS RESECTION OF NASAL SEPTUM WITH REPLACEMENT WITH GRAFT N/A 05/02/2004 Septoplasty or submucous resection, with or without cartilage scoring, contouring or replacement with graft.. FAMILY HISTORY Family History Problem Relation Age of Onset ??? Eczema Father ??? Melanoma Sister ??? Celiac disease Mother ??? Celiac disease Brother ??? Celiac disease Mother's Sister SOCIAL HISTORY Social History Social History ??? Marital status: Single Spouse name: N/A ??? Number of children: N/A ??? Years of education: N/A Social History Main Topics ??? Smoking status: Never Smoker ??? Smokeless tobacco: Never Used ??? Alcohol use No ??? Drug use: No ??? Sexual activity: Yes Partners: Male control/ protection: Pill Other Topics Concern ??? None Social History Narrative ??? None MEDICATIONS Current Outpatient Prescriptions: ??? acetaminophen (for_TYLENOL) 325 mg tablet, Tylenol See Instructions, PO, Disp: , Rfl: ??? norethindrone ac-eth estradiol (LOESTRIN 1.5/30, 21,) 1.5-30 mg-mcg tablet, Take 1 tablet by mouth daily., Disp: 84 each, Rfl: 3 ??? pimecrolimus (ELIDEL) 1 % cream, Apply 1 application topically 2 (two) times a day., Disp: , Rfl: ??? MONICO FE 1.5/30, 28, 1.5 mg-30 mcg (21)/75 mg (7) tablet, , Disp: , Rfl: 2 ALLERGIES Allergies Allergen Reactions ??? Alum-Mag Hydroxide-Simeth Rash ??? Amoxicillin Rash and GI intolerance rash nausea ??? Azithromycin Rash ??? Lidocaine Rash VITAL SIGNS Vitals: 01/16/18 1552 BP: 110/60 Patient Position: Sitting Pulse: 60 Temp: 36.8 ??C Resp: 14 Height: 172 cm Weight: 56.4 kg TempSrc: Oral PHYSICAL EXAM GENERAL: Patient is alert and [...] or rubs noted. No S3, No S4. Slightly concave shape to chest wall. LUNGS: Regular rate and rhythm of respirations. Clear to auscultation bilaterally. No wheezes or crackles. No accessory muscles of respiration noted. BREASTS: Soft breast tissue without predominant mass or nodularity. No nipple discharge. Nipples everted bilaterally. No axillary or supraclavicular adenopathy. ABDOMEN: Soft, nontender to palpation. No hepatosplenomegaly. No mass. Normal bowel sounds in all 4 quadrants. PELVIS: Normal external genitalia. Normal vaginal discharge. Mucosa moist and well rugated. Pap smear is taken by thin-prep technology. Cervix is friable. There is a very tiny white plaque at about 4:00 position on the cervix, but otherwise cervix appears normal. Bimanual exam shows no adnexal fullness. No cervical motion tenderness. Anus appears normal. EXTREMITIES: No neurovascular compromise. No cyanosis, clubbing or edema. No abnormal limb length. NEURO: Cranial nerves II through XII are grossly intact. SKIN: No rashes, lesions, or abnormal nevi that meet criteria for biopsy/removal. MENTAL: Affect is normal. Speech is clear and coherent. Thought process is appropriate. Good eye contact. DIAGNOSIS/PLAN #1 General Medical Examination Adult #2 Flatulence #3 Sprue Celiac Family History #4 Abnormal Pap Smear Cervix - ThinPrep w/HPV Co-Test Diagnostic #5 Melanoma Family History Other orders - Celiac Disease Serology [place]; Future; Expected date: 01/16/2018 - influenza vaccine quad (FLUZONE/FLUARIX) (36 months and older) (PF) Routine Health Maintenance. Colon cancer screening due at age 50. Mammogram due at age 40. CBE today is normal. Diagnostic pap with co-test is done today. If abnormal, refer back to colposcopy. Sees Yani Denis. (I will send her a portal message) Fasting blood glucose not indicated as she maintains a healthy weight. Lipid profile due again in 2020. Done in 2015 and normal. TDaP immunization given in 2013 in [place]. Influenza immunization was updated today. We talked about general health prior to conception. She was encouraged to stop her oral contraceptive and use condoms about 6 months prior to trying to conceive just so that she can see what her cyclesdo and to help try to time intercourse. Start vitamin at least 3 months prior. She already is avoiding alcohol and is a nonsmoker. She maintains a healthy weight, eats a balanced diet, and is exercising regularly, so really she is already in excellent health. For the gas and bloating, reassurance provided that this is typically benign.I recommend eliminationof gas producing foods. I did give her some ideas such as cruciferous vegetables, legumes, carbonated beverages, etc. If she wants to she can try simethicone, Beano, or activated charcoal, although there is mixed evidence supporting the efficacy of those. I am going to get a Celiac disease serology cascade just with her extensive family history of Celiac disease. She has been eating gluten daily prior to testing. We discussed red flags and she doesn't have them at this point. She can try a low Fodmap diet if she would like and she was given a handout on this. Follow up in clinic if needed. I recommend preventative health care measures including [...] Procedure Name Priority Date/Time Associated Comments Diagnosis THINPREP W/HPV Routine 01/16/2018 4:55 PM Abnormal Pap Smear R esults for this CO-TEST DIAGNOSTIC CDT Cervix procedure are in the results section. HPV WITH GENOTYPING, Routine 01/16/2018 4:55 PM R esults for this PCR, THINPREP CDT procedure are in the results section. documented in this encounter Results HPV with Genotyping, PCR, ThinPrep (01/16/2018 4:55 PM CDT) athologist Signature HPV with Negative Negative 01/17/2018 [facility] Genotyping, 1:36 PM CDT HEALTH [facility]inPrep, [facility] Comment: Negative for high risk HPV by nucleic ac id amplification. ??The following high risk HPV types were not detected: 16, 18, 31, 33, 35, 39, 45, 51, 52, 56, 58, 59, 66, and 68 Specimen Anatomical Collection Method Collection Time Receive d Time (Source) Location / / Volume Laterality Varies 01/16/2018 4:55 PM 8 7:46 CDT AM CDT Domonique Jones APRN, C.N.P., D.N.P. LAB MICROBIOLOGY - GENERAL ORDERABLES Performing Organization Address City/State/ZIP Code Phon e Number [place] [id number] [place] [address] LAB ThinPrep w/HPV Co-Test Diagnostic (01/16/2018 4:55 PM CDT) Component Value Ref Test Analysis Performed Pathologis t Range Method Time At Signature 01/18/2018 [facility] 9:54 AM HEALTH CDT [facility] Report CASSIE Martinez (ASCP) 01/19/20 18 [facility] electronically I verify that I have examined all relevant slides/ma terials 9:54 AM HEALTH signed by for the specimen(s) and rendered or confirmed the diagnosi s. CDT [facility] Gross Description Received specimen 01/18/2018 [facility] in a ThinPrep 9:54 AM HEALTH vial. CDT [facility] Pap Test Source Cervical/Endocervi 01/18/2018 [facility] lazaro 9:54 AM HEALTH CDT [facility] Clinical History previous abnormal 01/18/2018 [facility] 9:54 AM HEALTH CDT [facility] Menstrual menstrating 01/18/2018 [facility] Status(LMP, PM, 9:54 AM HEALTH ) CDT [facility] Hormone None/Not known 01/18/2018 [facility] Therapy/Contracep 9:54 AM HEALTH tives CDT [facility] Interpretation Cervical/Endocervical ??(ThinPrep): 01/18/2018 [facility] Satisfactory for Evaluation 9:54 AM HE ALTH Negative for Intraepithelial Lesion or Malignancy CDT SYSTEM- High Risk HPV Testing results are NEGATIVE. [facility] HPV by Archival Records Clerk-Mediated Amplification ??(TMA) for CYTOLOGY E6/E7 viral messenger RNA (mRNA) is an in-vitro diagnostic test for the detection of 14 high-risk Human Papilloma (HPV) types (16, 18, 31, 33, 35, 39, 45, 51, 52, 56, 58, 59, 66, and 68) in cervical specimens. Additional testing performed at [facility], [address] [place] [address]. Specimen Anatomical Collection Method Collection Time Receive d Time (Source) Location / / Volume Laterality Varies 01/16/2018 4:55 PM 8 7:46 (Cervix/Endocerv CDT AM CDT ix) Narrative This result has an attachment that is no t available. Domonique Jones APRN, C.N.P., D.N.P. LAB PAP PATHDX O RDERABLES Performing Organization Address City/State/[place] [address] CYTOLOGY Celiac Disease Serology [place] (01/16/2018 4:51 PM CDT) Component Value Ref Test Analysis Performed At [facility] gist Range Method Time Signature Immunoglobulin A 199 61 - 01/17/2018 [facility] (IgA), S 356 8:55 AM LABORATORIES - mg/dL CDT [facility] Celiac Disease Negative serology. Celiac di sease unlikely. However, approximately 10% of 01/17/2018 [facility] Interpretation patients with celiac disease are seronegative. Also, patients who are already 10:44 PM LABORATORIES - adhering to a gluten-free diet may be seronegative. If braulio iac disease is CDT [facility] highly clinically suspected, consider HLA-DQ typing. [place] Specimen Anatomical Collection Method Collection Time Receive d Time (Source) Location / / Volume Laterality Blood (Blood, 01/16/2018 4:51 PM 01/18/20 18 6:34 Venous) CDT AM CDT Nick Jordan APRN.N.P., D.N.P. 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 PCP - General 10/19/16 [address] [place] [phone] documented as of this encounter
--- OUTSIDE RECORDS SUMMARY | 2021-12-14 01:30 | XMS_ITS | Encounter Summary ---
:1990 Author Organization [facility] Address [address] [place] [address] Care Team Providers Name Role Phone Domonique Jones APRN, C.N.P., D.N.P. Primary Care Provider Reason for Visit Reason Comments Follow-up fever, cough, congestion, he adaches Encounter Details Date Type Department Care Team Description 03/30/2017 Office Visit Department of Family Juan Donnelly, Sinusitis Acute (Primary Dx); MedicineEdyta M.D. Infection Upper Respiratory Viral; Clinic, [facility] [address] [place], [place] [address] [address] [facility] [place] [phone] (Wo rk) [phone] Social History Tobacco Use Types Packs/Day Years [...] week 03/05/2021 How often do you attend gnosticist or yarsani services? Never 03/05/2021 Do you belong to any clubs or organizations such as gnosticist N o 03/05/2021 groups, unions, fraternal or [...] Sign Reading Time Taken Comments Blood Pressure 112/73 03/30/2017 10:27 AM SERVICE DIRECTOR Pulse 70 03/30/2017 10:27 AM SERVICE DIRECTOR Temperature 36.4 ??C (97.5 ??F) 03/30/2017 10:27 AM SERVICE DIRECTOR Respiratory Rate 16 03/30/2017 10:27 AM SERVICE DIRECTOR Oxygen Saturation - - Inhaled Oxygen Concentration - - Weight 57.5 kg (126 lb 12.2 oz) 03/30/2017 10:27 AM SERVICE DIRECTOR Height - - Body Mass Index 19.44 02/22/2017 8:44 AM CDT documented in this encounter Progress Notes Juan Donnelly M.D. - 03/30/2017 9:45 AM CST CHIEF COMPLAINT/REASON FOR VISIT Cough and facial pain HISTORY OF PRESENT ILLNESS Claudia Beltran is a 27 y.o. female presenting today for a prolonged cough and facial pain. Cough has been quite bothersome and this has been going on for about a week. This facial pain and congestion has been going on for over 2 weeks. She does have a history of sinus surgery in the past and has had sinus infections previously that required antibiotics to clear up. She has been having some fevers as well. There are no further concerns at this time. REVIEW OF SYSTEMS Please see HPI for pertinent positives and negative, otherwise full remainder of ROS negative. MEDICATIONS Current Outpatient Prescriptions Medication Sig Dispense Refill ??? acetaminophen (for_TYLENOL) 325 mg tablet Tylenol See Instructions, PO ??? pimecrolimus (ELIDEL) 1 % cream Apply 1 application topically 2 (two) times a day. ??? norethindrone ac-eth estradiol (LOESTRIN 1.5, 21,) 1.5-30 mg-mcg tablet Take 1 tablet by mouth daily. 84 each 3 No current facility-administered medications for this visit. ALLERGIES Allergies Allergen Reactions ??? Alum-Mag Hydroxide-Simeth Rash ??? Amoxicillin Rash and GI intolerance rash nausea ??? Azithromycin Rash ??? Lidocaine Rash PAST MEDICAL / SURGICAL HISTORY No past medical history on file. Past Surgical History: Procedure Laterality Date ??? NASAL SEPTOPLASTY ??? SUBMUCOUS RESECTION OF NASAL SEPTUM WITH REPLACEMENT WITH GRAFT N/A 05/02/2004 Septoplasty or submucous resection, with or without cartilage scoring, contouring or replacement with graft.. SOCIAL HISTORY Social History Social History ??? Marital status: Single Spouse name: N/A ??? Number of children: N/A ??? Years of education: N/A Social History Main Topics ??? Smoking status: Never Smoker ??? Smokeless tobacco: Never Used ??? Alcohol use No ??? Drug use: No ??? Sexual activity: Not on file Other Topics Concern ??? Not on file Social History Narrative ??? No narrative on file History Drug Use No History Alcohol Use No FAMILY HISTORY Family History Problem Relation Age of Onset ??? Eczema Father ??? Melanoma Sister VITAL SIGNS BP 112/73 (BP Location: Right arm, Patient Position: Sitting, Cuff Size: Regular) Pulse 70 Temp 36.4 ??C (Oral) Resp 16 Wt 57.5 kg BMI 19.44 kg/m?? PHYSICAL EXAMINATION GENERAL: Tired appearing but in no acute distress. HEAD: Normocephalic, atraumatic. Neck without rigidity or masses. EYES: PERRL bilaterally. No eyelid swelling or mattering. Conjunctivae and sclerae clear bilaterallywithout injection or icterus. ENT: TMs noninfectious infusion bilaterally. Nares with boggy nasal mucosa bilaterally. She has tenderness to palpation over the frontal and maxillary sinuses bilaterally. Oropharynx shows mild erythema. LYMPH NODES: Mild anterior lymphadenopathy in the neck. No lymphadenopathy in the supraclavicular region HEART: Regular rate and rhythm with normal S1 and S2. No extra heart sounds noted. No murmurs, rubs,or gallops auscultated. LUNGS: Clear to auscultation bilaterally. No wheezes, rubs, or rales noted. Normal effort with no retractions or use of accessory muscles. Able to speak in full sentences. EXTREMITIES: No clubbing, cyanosis, or edema. NEURO: Nonfocal. SKIN: Normal color. No worrisome lesions or rash noted on exposed skin. Moist mucous membranes. [place]skin turgor. Brisk capillary refill. IMPRESSION/REPORT/PLAN 1. Sinusitis, in a patient with previous instrumentation of the nasal cavities. Due to prolonged symptoms, I would recommend treatment with Ceftin 500 mg p.o. b.i.d. times 10 days. 2. Upper respiratory infection. While this is likely viral, the Ceftin with cover for this as well. I did also write for Tessalon Perles 200 mg p.o. t.i.d. as needed for cough. She is encouraged to increase her p.o. fluids and follow up on an as-needed basis if she is not improving. Juan Donnelly M.D. Family Medicine ICE DIRECTOR documented in this encounter Plan of Treatment Not on filedocumented as of this encounter Visit Diagnoses Diagnosis Sinusitis Acute - Primary Infection Upper Respiratory Viral Cough Unspecified Type documented in this encounter Care Teams Quality Assurance Monitor Relationship Specialty Start Date End Date Domonique Jones APRN, C.N.P., D.N.P. PCP - General 10/19/[address] [id number] documented as of this encounter
--- OUTSIDE RECORDS SUMMARY | 2021-12-14 01:30 | XMS_ITS | Encounter Summary ---
:1990 Author Organization [facility] Address [address] [place] [address] Care Team Providers Name Role Phone Domonique Jones APRN, C.N.PSymone, D.N.P. Primary Care Provider Encounter Details Date Type Department Care Team Description 02/12/2017 Hospital Encounter HX [facility] Judith Sage A PRN, C.N.P., M.S.N. Social History Tobacco Use Types Packs/Day Years [...] How often do you attend sikhism or sikh services? Never 03/05/2021 Do you belong to [...] place to sleep or slept in a half-way (including now)? Sex Assigned at Date Recorded Female 01/16/2018 3:45 PM CDT documented as of this encounter Last Filed Vital Signs Vital Sign Reading Time Taken Comments Blood Pressure 112/64 02/12/2017 2:48 PM CDT Pulse - - Temperature - - Respiratory Rate - - Oxygen Saturation - - Inhaled Oxygen Concentration - - Weight 55.4 kg (122 lb 2.2 oz) 02/12/2017 2:48 PM CDT Height 172 cm (5' 7.72) 02/12/2017 2:48 PM CDT Body Mass Index 18.73 02/12/2017 2:48 PM CDT documented in this encounter Medications [...] documented as of this encounter Progress Notes Judith Dunne M.SSymoneN. - 02/12/2017 2:37 PM CDT [id number] CHIEF COMPLAINT/REASON FOR VISIT Yany is a 27-year-old female who presents for colposcopy following a Pap test which identified squamous intraepithelial lesion, low-grade versus high- grade with a past history of ASCUS Pap with positive HPV a year ago. Her colposcopy at that time was negative for RAMEZ. Past Pap tests had otherwise been negative. She is using oral contraceptive pills for contraception. She is however having continued problems with breakthrough bleeding and spotting. She is a nonsmoker. She has no complaints of pelvic pain, vaginal discharge or unusual vaginal bleeding. We discussed the current options for evaluation and management of her Pap smear findings including the indication for colposcopy. She wishes to proceed with colposcopy today. PAST MEDICAL/SURGICAL HISTORY Significant for ASCUS Pap with positive HPV testing, negative colposcopy findings. Negative colposcopy biopsies 2015. She does have fairly significant anxiety which she does not medicate for on a dailybasis. She does become quite anxious when discussing her Pap smear findings and anticipated exam today. MEDICATIONS Reviewed per EHR medication list dated today's date. ALLERGIES Amoxicillin, lidocaine, Maalox, Zithromax. VITAL SIGNS Blood pressure 112/64. Height 172 cm. Weight 55.4 kg. BMI 18.93. PHYSICAL EXAMINATION Sensitive portion of exam was chaperoned by Renan Griffin LPN. During this procedure the universal protocol was utilized. The patient's identity was confirmed by no less than two patient identifiers, correct procedure was verified, correct site was verified. Aftersafe site verification was performed and consent form was signed, this 27-year-old female was placedin the dorsal lithotomy position. The lower genital tract was visualized with the colposcope under low power magnification with a bright light. The cervix was then examined under low power, high power,and with green light filter. The squamocolumnar junction was not seen and identified in its entiretydespite manipulation. Acetic acid was applied to the upper vagina and cervix in the usual fashion. White epithelium was noted at: 12 o'clock with some fine punctation. White epithelium was also noted at 6 o'clock with some fine punctation. Biopsies were taken at: 12 o'clock and 7 o'clock and sent for p athology review. ECC was performed as the SCJ was not seen in its entirety and the aceto-white lesion at the 7 o'clock position was extending up into the endocervical canal. Local anesthetic was not used for the biopsies. Pressure with a cotton tip swab and silver nitrate were used for Hemostasis. Shetolerated the procedure quite well despite her anxiety. IMPRESSION/REPORT/PLAN Pap smear findings of squamous intraepithelial lesion low-grade versus high- grade. Inadequate colposcopy based on incomplete visualization of the squamocolumnar junction. Clinical impression is RAMEZ 1 most likely. Will rule out endocervical abnormality as well. She was given post colposcopy instructions. Information on abnormal Pap smear findings and HPV was also provided and discussed. She will be contact her with biopsy results within the next 3 to 5 days. Further evaluation or followup will be based on her final biopsy results. Guevara Norton/shaneka Electronically Signed By: JUDITH DUNNE NP On: 02/27/2017 06:46 PM Source: [facility] MHSDOLBEYNONRADSYS Document Id: [id number] documented in this encounter Miscellaneous Notes Miscellaneous - Renan Griffin L.P.N. - 02/16/2017 10:01 AM CDT Reminder Msg pap and HPV 1 year From: RENAN GRIFFIN LPN (OW KICK BOXER Nurse) To: OW KICK BOXER Abnormal Pap Pool; Sent: 02/16/2017 10:01:23 CDT Show up: 02/01/2018 10:01:00 CDT Subject: Reminder Msg pap and HPV 1 year Due Date/Time: 02/15/2018 10:01:00 CDT Please Remember to: pap and HPV 1 year PATIENT: ( ) Call Patient ( ) Ask Patient to ( ) ( ) Call Relative ( ) Schedule Patient ( ) ( ) Call for Saxophone Assembler ( ) Follow up on Results ( ) Other: PROVIDER: ( ) Call Physician ( ) Call Pharmacist ( ) Call Lab ( ) Other: Special Instructions: Comments: Source: [facility] POWERCHART Document Id: [id number] Miscellaneous - Judith Dunne M.SJaguar - 02/15/2017 8:23 PM CDT Results Notification Document Contains Addenda Addendum by RENAN GRIFFIN LPN on February 16, 2017 10:01:31 CDT added to recall list From: DUNNE, JUDITH M PA, LAST CHALKER To: OW KICK BOXER Nurse; Sent: 02/15/2017 20:23:47 CDT ! Show up: 02/15/2017 20:23:47 CDT Subject: Results Notification Actions: Note to Nurse Reminder Comments: patient notified. Please add to recall list for pap and HPV in one year Results: Date Result Type Result Name 02/14/2017 12:05 Document - DOC Pathology-Surg Path Source: [facility] [employer] Document Id: [id number] Miscellaneous - Judith Dunne M.SRosa. - 02/15/2017 8:23 PM CDT From: JUDITH DUNNE NP To: CLAUDIA MARTEL Sent: 02/15/2017 20:23:10 CDT Claudia, I am happy to report that the cervical biopsies and endocervical sample did not show any concerning abnormalities, just some recent and more chronic inflammation which is not uncommon to see. I do recommend that you follow up in 1 year for a repeat pap and HPV test again to ensure that there are no further changes. Please let me know if you have any questions. Take care! Judith Dunne APRN, CFNP Source: [facility] [employer] Document Id: [id number] Miscellaneous - Renan Griffin L.P.N. - 02/12/2017 4:28 PM CDT Chip Bin Operator Documentation Chip Bin Operator Documentation Entered On: 02/12/2017 16:28 CDT Performed On: 02/12/2017 16:28 CDT by RENAN GRIFFIN LPN Chip Bin Operator Documentation Exam/Procedure Performed : colposcopy CD Chip Bin Operator Present : Yes CD Chip Bin Operator Name : renan griffin Present in Room During Exam/Procedure : Alone RENAN GRIFFIN LPN - 02/12/2017 16:28 CDT Source: [facility] POWERCHART Document Id: [id number] CDT!6 Miscellaneous - Judith Dunne M.S.N. - 02/12/2017 4:06 PM CDT Ambulatory Patient Summary [facility] [address] [place] [id number] Visit Information Name: CLAUDIA MARTEL [facility] Number: [id number] Current Date: 02/12/2017 16:06:43 Physicians Attending Provider: JUDITH DUNNE NP Primary Care Provider: DOMONIQUE JONES APRN, DNP, SINGER AND UNLOADER CLAUDIA MARTEL has been given the following [...] the Following Medications: Medication list as of 02-12-17 16:06 Attention: If you have any medications at home that are not on this list, DO NOT take them until youcontact your provider for clarification. Give a copy of your medication list to your primary care provider. Update your medication list any time medications or doses are changed and carry your medication list at all times in case of emergency. Electronically Signed By: JUDITH DUNNE NP Signed On:12-FEB-2017 16:06:40 Your Allergies & Intolerances Substance Reaction Symptoms [...] if you dont have one. Go to [email or web address] and click on Create Your Account. Then, follow the directions to complete the online form. Youll be asked for your [facility] number which you can find at the top of this document. Your Goals/Additional instructions: Source: [facility] POWERCHART Document Id: [id number] Miscellaneous - Judith Dunne M.S.N. - 02/12/2017 4:06 PM CDT Ambulatory Discharge Medication List [facility] [address] [place], [place] [phone] Visit Information Name: TAHMINA CLAUDIA LYNCH [facility] Number: [id number] Current Date: 02/12/2017 16:06:42 Attending Provider: JUDITH DUNNE PA, LAST CHALKER Primary Care Provider: DOMONIQUE JONES APRN, DNP, SINGER AND UNLOADER TAHMINACLAUDIA SYED has been given the following list of [...] the Following Medications: Medication list as of 02-12-17 16:06 Attention: If you have any medications at home that are not on this list, DO NOT take them until youcontact your provider for clarification. Give a copy of your medication list to your primary care provider. Update your medication list any time medications or doses are changed and carry your medication list at all times in case of emergency. Electronically Signed By: JUDITH DUNNE LAST CHALKER Signed On:12-FEB-2017 16:06:40 Additional Information: Source: [facility] POWERCHART Document Id: [id number] Miscellaneous - Myriam Peralta LSymonePSymoneN. - 02/12/2017 2:48 PM CDT Adult General Claims Agent Intake/History Adult General Claims Agent Intake/History Entered On: 02/12/2017 14:51 CDT Performed On: 02/12/2017 14:48 CDT by MYRIAM PERALTA LPN Intake Chief Complaint : colpo LMP Date : 01-30-2017 Systolic Blood Pressure : 112 mmHg Diastolic Blood Pressure : 64 mmHg NIBP Mean : 80 mmHg Height : 172 cm(Converted to: 5 ft 8 inch(es), 68 inch(es)) Actual Weight : 55.4 kg(Converted to: 122 lb 2 oz) Dosing Weight Clinic : 55.4 kg Clinic BSA : 1.63 Body Mass Index : 18.73 kg/m2 MYRIAM PERALTA LPN - 02/12/2017 14:48 CDT General Info Information Given By : Patient Languages : Bulgarian Is Patient Female and 13-50 no hysterectomy : Yes Status : Patient denies Are you ? : No MYRIAM PERALTA LPN - 02/12/2017 14:48 CDT Subjective Pain Symptoms : No MYRIAM PERALTA LPN - 02/12/2017 14:48 CDT Dependent Habits Exposure to Tobacco Smoke : Other: Never Smoking Status : Never smoker Tobacco 2A : No Tobacco Use/Currently Using : No Tobacco Use/Last 30 Days : No Tobacco Use/Last 12 months : No MYRIAM PERALTA LPN - 02/12/2017 14:48 CDT Source: [facility] [employer] Document Id: [id number] CDT!27 documented in this encounter Plan of Treatment Not on filedocumented as of this encounter Visit Diagnoses Not on filedocumented in this encounter Care Teams Director Rehabilitation Program Relationship Specialty Start Date End Date Domonique Jones APRN, C.N.P., D.N.P. PCP - General 10/19/16 [address] [place] [phone] documented as of this encounter
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
--- OUTSIDE RECORDS SUMMARY | 2021-12-14 01:30 | XMS_ITS | Encounter Summary ---
:1990 Author Organization [facility] Address [address] [place] [address] Care Team Providers Name Role Phone Domonique Jones APRN, C.N.P., D.N.P. Primary Care Provider Encounter Details Date Type Department Care Team Description 10/27/2016 Hospital Encounter HX [facility] Megan Jones APRN, C.N.P., D. N.P. [address] [place] [facility] [place] [address] (Wo rk) Social History Tobacco Use [...] week 03/05/2021 How often do you attend mosque or confucianist services? Never 03/05/2021 Do you belong to any clubs or organizations such as mosque N o 03/05/2021 groups, unions, fraternal or [...] slept in a senior care (including now)? Sex Assigned at Date Recorded Female 01/16/2018 3:45 PM CDT documented as of this encounter Last Filed Vital Signs Vital Sign Reading Time Taken Comments Blood Pressure 96/60 10/27/2016 8:24 AM CDT Pulse 72 10/27/2016 8:24 AM CDT Temperature - - Respiratory Rate 16 10/27/2016 8:24 AM CDT Oxygen Saturation - - Inhaled Oxygen Concentration - - Weight 53.8 kg (118 lb 9.7 oz) 10/27/2016 8:24 AM CDT Height 173 cm (5' 8.11) 10/27/2016 8:24 AM CDT Body Mass Index 17.98 10/27/2016 8:24 AM CDT documented in this encounter Medications [...] documented as of this encounter Progress Notes Domonique Jones, SERGE, D.N.P., C.N.P. - 10/27/2016 8:52 AM CDT FM-LE CHIEF COMPLAINT/REASON FOR VISIT inconsistent menstural cycle - getting period every 2 weeks - bc was switched about 3-4 months ago - periods are pretty light - painless - periods only last about 3-4 days and are very light HISTORY OF PRESENT ILLNESS Claudia Is a very pleasant 26-year-old female here with concerns about an inconsistent menstrual cycle. She tells me that about a year ago she was having problems with heavier periods that were very unpredictable. She was on TriNessa control at that time and that was also around the time that she had an abnormal Pap smear so she underwent colposcopy. That came back normal and she was recommended to have a repeat Pap again in January 2017. However, about 4 months ago her periods got to the point where they were so irregular she came in ended up making a change to her contraceptive. She switched from TriNessa to MonoNessa. She said that this went well for about 1 month and now since then she has had about 3 days of light bleeding every 2 weeks. It is to the point where it is just very annoying and she cannot predict when she will be getting her periods. She denies any abdominal pain or abnormal vaginal discharge. She is using oral contraceptive pills for control. She tells me she is engaged and will be getting in December. Claudia also mentions that her sister has a history of malignant melanoma . She is wondering if I can check her skin either at her upcoming physical or today. She has no specific concerns and is goodabout wearing sunscreen now. She does have a history of tanning bed use in high school. MEDICATIONS Calcium 500+D, 1 tab(s), PRN Elidel 1% topical cream, 1 mery, Topical, 2xDay, 1 refills magnesium citrate, 300 mL, Restless legs, PO, PRN Mononessa 0.25 mg-35 mcg oral tablet, 1 tab(s), PO, Daily, 0 refills Tylenol, See Instructions, PO ALLERGIES amoxicillin lidocaine (Urticaria) Maalox (Urticaria) Zithromax Z-Juan (rash) PAST MEDICAL HISTORY Chronic Body Mass Index (BMI) Less Than 19 Adult Cough Bronchospastic Dermatitis Eyelid NOS Exam General Medical NOS (GME) General examination of patient History of PDA WITH SURGICAL REPAIR Lesion Skin Back Oral contraception Revision septoplasty Whiplash Historical No [...] (Week of 10/01/2002). SOCIAL HISTORY Date Time: 10/27/2016 08:24 Tobacco: Smoking Status: Never smoker Exposure: Other: Never Alcohol: Use: No Recreational Drugs: Use: No Results Found Type: No Results Found FAMILY HISTORY Father:Positive: Eczema Negative: Fibromuscular dysplasia Sister:Positive: Melanoma Negative: Mesothelioma SYSTEMS REVIEW Systems review is negative other than what is listed in the history of present illness. VITAL SIGNS HR: 72 RR: 16 BP: 96 / 60 HT: 173 cm WT: 53.8 kg BMI: 17.98 PHYSICAL EXAMINATION GENERAL: Patient is alert and oriented, in no acute distress. Capable of full communication withoutdifficulty. Patient is polite and cooperative. Appropriately dressed and normal hygiene. HEENT: Normocephalic, atraumatic. HEART: Regular rate and rhythm. No murmurs, gallops or rubs noted. LUNGS: Clear to auscultation bilaterally. No wheeze. No accessory muscles of respiration noted. ABDOMEN: Normoactive bowel sounds. No mass. No hepatosplenomegaly. No rebound or guarding. No tenderness upon palpation. EXTREMITIES: No neurovascular compromise. No cyanosis, clubbing or edema. SKIN: Dewitt type 2. No atypical moles notes on face, back, arms, or upper chest. A full skin exam was not done today. IMPRESSION/REPORT/PLAN Melanoma Fam Hx A limited skin exam was done today . I did check her back, arms, face and upper chest . There were no concerning moles that I feel warrant biopsy at this time in those regions. I did discuss the need to use SPF 30 sunscreen on a regular basis. I also discussed the need for routine skin exams and we will plan on a full skin exam at her physical in January of 2017. She is aware of the ABCDEs of skincancer. Ordered: OV Est Pt Level 4 - 95390 - 25 min Metrorrhagia Discussed that we could try a switch of a different progestin/estrogen combination. First few months may be irregular, but if still irregular at 3 months I would recommend we try something completely different and/or refer to gynecology for further evaluation. She is also due for a repeat pap in January 2017. 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 She will schedule a physical in January and we canrepeat the pap at that time. She will notify me sooner if she has concerns with persistently irregular periods. Would consider a pelvic ultrasound at that time. Ordered: OV Est Pt Level 4 - 16576 - 25 min Orders: levonorgestrel-ethinyl estradiol, 1 tab(s), PO, Daily, # 28 tab(s), 11 Refill(s), Maintenance, Pharmacy: [facility] Electronically Signed By: DOMONIQUE JONES APRN, DNP, CNP On: 10/27/2016 05:58 PM [facility] POWERCHART Document Id: [id number] documented in this encounter Miscellaneous Notes Miscellaneous - Domonique Jones APRN, D.N.P., C.N.P. - 10/27/2016 9:00 AM CDT Ambulatory Patient Summary [facility] [address] [place] [id number] Visit Information Name: CLAUDIA MARTEL [facility] Number: [id number] Current Date: 10/27/2016 09:00:43 Physicians Attending Provider: DOMONIQUE JONES APRN, DNP, CNP Primary Care Provider: DOMONIQUE JONES APRN, DNP, CNP CLAUDIA MARTEL has been [...] Medication Changes/Routing acetaminophen (Tylenol) See Instructions PO calcium-vitamin D (Calcium 500+D) 1 Tablet(s), as needed levonorgestrel-ethinyl estradiol (levonorgestrel-ethinyl estradiol 0.15 mg-30 mcg oral tablet) 1 Tablet(s), Oral, once a day New Routed to [place] [address] [place], [place] [id number] magnesium citrate (magnesium citrate) 300 Milliliter, Oral, as needed Restless legs pimecrolimus topical (Elidel 1% topical cream) 1 mery, Topical, two times a day Stop Taking the Following Medications: Misc Prescription (Multiple Vitamin- Herbalife) Misc Prescription (Cell Activator-Herbalife) norgestimate-ethinyl estradiol (Mononessa 0.25 mg-35 mcg oral tablet) Medication list as of 10-27-16 09:00 Attention: If you have any medications at home that are not on this list, DO NOT take them until youcontact your provider for clarification. Give a copy of your medication list to your primary care provider. Update your medication list any time medications or doses are changed and carry your medication list at all times in case of emergency. Electronically Signed By: DOMONIQUE JONES APRN, DNP, STUDENT WORKER Signed On:27-OCT-2016 09:00:40 Your Allergies & Intolerances Substance Reaction Symptoms [...] if you dont have one. Go to [email or web address] and click on Create Your Account. Then, follow the directions to complete the online form. Youll be asked for your [facility] number which you can find at the top of this document. Your Goals/Additional instructions: Source: [facility] POWERCHART Document Id: [id number] Miscellaneous - Domonique Jones APRN, DeborahN.P., C.N.P. - 10/27/2016 9:00 AM CDT Ambulatory Discharge Medication List [facility] [address] [place] [id number] Visit Information Name: TAHMINACLAUDIA MEYER [facility] Number: [id number] Current Date: 10/27/2016 09:00:42 Attending Provider: DOMONIQUE JONES APRN, DNP, CNP Primary Care Provider: DOMONIQUE JONES APRN, DNP, CNP TAHMINA CLAUDIA SYED has been given the following list of medications: Your Medications It is important to take your medications as directed. Use a pill box or chart to help remind you to take your medications. Please let your doctor or nurse know if you have problems taking your medications. Medication/Strength How to Take Indications/Special Instructions/Comments/Notes for Patient Medication Changes/Routing acetaminophen (Tylenol) See Instructions PO calcium-vitamin D (Calcium 500+D) 1 Tablet(s), as needed levonorgestrel-ethinyl estradiol (levonorgestrel-ethinyl estradiol 0.15 mg-30 mcg oral tablet) 1 Tablet(s), Oral, once a day New Routed to [facility] [address] [facility] [place] [id number] magnesium citrate (magnesium citrate) 300 Milliliter, Oral, as needed Restless legs pimecrolimus topical (Elidel 1% topical cream) 1 mery, Topical, two times a day Stop Taking the Following Medications: Misc Prescription (Multiple Vitamin- Herbalife) Misc Prescription (Cell Activator-Herbalife) norgestimate-ethinyl estradiol (Mononessa 0.25 mg-35 mcg oral tablet) Medication list as of 10-27-16 09:00 Attention: If you have any medications at home that are not on this list, DO NOT take them until youcontact your provider for clarification. Give a copy of your medication list to your primary care provider. Update your medication list any time medications or doses are changed and carry your medication list at all times in case of emergency. Electronically Signed By: DOMONIQUE JONES APRN, DNP, STUDENT WORKER Signed On:27-OCT-2016 09:00:40 Additional Information: Source: [facility] POWERCHART Document Id: [id number] Miscellaneous - Verenice Plascencia, L.P.N. - 10/27/2016 8:24 AM CDT Adult Statistical Geneticist Intake/History Adult Statistical Geneticist Intake/History Entered On: 10/27/2016 8:29 CDT Performed On: 10/27/2016 8:24 CDT by VERENICE PLASCENCIA LPN Intake Chief Complaint : inconsistent menstural cycle - getting period every 2 weeks - bc was switched about 3-4 months ago - periods are pretty light - painless - periods only last about 3-4 days and are very light LMP Date : 10/22/2016 Peripheral Pulse Rate : 72 /min Respiratory Rate : 16 /min Heart Rhythm : Regular Systolic Blood Pressure : 96 mmHg Diastolic Blood Pressure : 60 mmHg NIBP Mean : 72 mmHg BP Location : Right upper extremity Blood Pressure Cuff Size : Regular Height : 173 cm(Converted to: 5 ft 8 inch(es), 68 inch(es)) Actual Weight : 53.8 kg(Converted to: 118 lb 10 oz) Weight Source : Standing scale Dosing Weight Clinic : 53.8 kg Clinic BSA : 1.61 Body Mass Index : 17.98 kg/m2 VERENICE PLASCENCIA LPN - 10/27/2016 8:24 CDT General Info Information Given By : Patient Preferred Communication Mode : Verbal Languages : Sami Is Patient Female and 13-50 no hysterectomy : Yes Status : Patient denies Are you ? : No VERENICE PLASCENCIA LPN - 10/27/2016 8:24 CDT Subjective Pain Symptoms : No VERENICE PLASCENCIA LPN - 10/27/2016 8:24 CDT Dependent Habits Exposure to Tobacco Smoke : Other: Never Smoking Status : Never smoker Tobacco 2A : No Tobacco Use/Currently Using : No Tobacco Use/Last 30 Days : No Tobacco Use/Last 12 months : No Alcohol Use : No VERENICE PLASCENCIA LPN - 10/27/2016 8:24 CDT Source: [email or web address] Document Id: [id number] CDT!35 Miscellaneous - Verenice Plascencia LSymoneP.NSymone - 10/27/2016 8:23 AM CDT Health Assessment Health Assessment Entered On: 10/27/2016 8:24 CDT Performed On: 10/27/2016 8:23 CDT by VERENICE PLASCENCIA LPN Health Assessment Complete Health Assessment Complete or Modified : Annual Health Assessment Annual Health Assessment Completed : Yes VERENICE PLASCENCIA LPN - 10/27/2016 8:23 CDT Nutrition Nutrition Risk Factors by History Adult : None VERENICE PLASCENCIA LPN - 10/27/2016 8:23 CDT Functional Current Daily Living Assistance : None VERENICE PLASCENCIA LPN - 10/27/2016 8:23 CDT Dependent Habits Exposure to Tobacco Smoke : Other: Never Smoking Status : Never smoker Tobacco 2A : No Tobacco Use/Currently Using : No Tobacco Use/Last 30 Days : No Tobacco Use/Last 12 months : No Alcohol Use : No VERENICE PLASCENCIA LEI MAKER - 10/27/2016 8:23 CDT Psychosocial Domestic Abuse Concerns : None Behavioral Health Screen/Safety Assmt : No Rastafarian Preference : No qualifying data available. VERENICE PLASCENCIA LEI MAKER - 10/27/2016 8:23 CDT Advance Directive Advanced Directives : No Advance Directive Additional Information : No VERENICE PLASCENCIA LEI MAKER - 10/27/2016 8:23 CDT Educ Needs Learning Style Preference Adult Grid Patient : Demonstration, Printed materials, Verbal explanation, Video/Educational TV Family : None VERENICE PLASCENCIA NEETA - 10/27/2016 8:23 CDT Source: [facility] [employer] Document Id: [id number] CDT!27 documented in this encounter Plan of Treatment Not on filedocumented as of this encounter Visit Diagnoses Not on filedocumented in this encounter Care Teams Cyber Systems Engineer Relationship Specialty Start Date End Date Domonique Jones APRN, C.N.P., D.N.P. PCP - General 10/19/16 [address] [place] [phone] documented as of this encounter
--- OUTSIDE RECORDS SUMMARY | 2021-12-14 01:30 | XMS_ITS | Encounter Summary ---
:1990 Author Organization [facility] Address [address] [place] [address] Care Team Providers Name Role Phone Domonique Jones APRN, C.N.PSymone, D.N.P. Primary Care Provider Encounter Details Date Type Department Care Team Description 01/17/2017 Hospital Encounter HX NO MAPPING Rogelio Zamora M.D. [address] [place], [place] [phone] (Wo rk) Social History [...] week 03/05/2021 How often do you attend uatsdin or yazidi services? Never 03/05/2021 Do you belong to any clubs or organizations such as uatsdin N o 03/05/2021 groups, unions, fraternal or [...] pay for the very basics like Not jennifer aaron hard 03/05/2021 food, housing, medical care, [...] Coding Summary-Paper Based CODING DATE: 01/30/2017 FINAL [facility] STATUS: * Discharged to Home or Self [...] Coded By: RODOLFO HIRSCH Date Saved: 01/30/2017 12:44 pm Source: [facility] POWERCHART Document Id: [id number] documented in this encounter Plan of Treatment Not on filedocumented as of this encounter Visit Diagnoses Not on filedocumented in this encounter Care Teams Cutter Barrel Drum Relationship Specialty Start Date End Date Domonique Jones APRN, C.N.P., D.N.P. PCP - General 10/19/16 [address] [place] [phone] documented as of this encounter
--- OUTSIDE RECORDS SUMMARY | 2021-12-14 01:30 | XMS_ITS | Encounter Summary ---
:1990 Author Organization [facility] Address [address] [place] [address] Care Team Providers Name Role Phone Domonique Jones APRN, C.N.PSymone, D.N.P. Primary Care Provider Encounter Details Date Type Department Care Team Description 02/12/2017 Hospital Encounter HX NO MAPPING Yani Denis APRN, C.N.P., M.S.N. Social History Tobacco Use Types [...] week 03/05/2021 How often do you attend roman catholic or latter day services? Never 03/05/2021 Do you belong to any clubs or organizations such as roman catholic N o 03/05/2021 groups, unions, fraternal or [...] Miscellaneous - Conversion, Historical Provider Ser - 02/12/2017 11:59 PM CDT Coding Summary-Paper Based CODING DATE: 02/22/2017 FINAL [facility] STATUS: * Discharged to Home or Self Care PAYOR: [employer] ADMIT DX: REASON FOR VISIT DX: FINAL DX: PRINCIPAL: N72 Inflammatory disease of cervix uteri SECONDARY: N87.0 Mild cervical dysplasia PROCEDURES DOCTOR NAME DATE NOTE: The code number assigned matches the documented diagnosis and / or procedure in the patient's chart. However, the narrative phrase printed from the coding software may appear abbreviated, or result in slightly different terminology. Coded By: SILVANO HANNAH Date Saved: 02/22/2017 01:02 pm Source: [facility] POWERCHART Document Id: [id number] documented in this encounter Plan of Treatment Not on filedocumented as of this encounter Visit Diagnoses Not on filedocumented in this encounter Care Teams Moss Picker Relationship Specialty Start Date End Date Domonique Jones APRN, C.N.P., D.N.P. PCP - General 10/19/16 [address], [place] [phone] documented as of this encounter
--- OUTSIDE RECORDS SUMMARY | 2021-12-14 01:30 | XMS_ITS | Encounter Summary ---
:1990 Author Organization [facility] Address [address] [place] [address] Care Team Providers Name Role Phone Unavailable Primary Care Provider Unavailable Encounter Details Date Type Department Care Team Description 05/01/2016 Hospital Encounter HX NO MAPPING Sincere Ibarra III, M.D. (Skip), M.P.H. [address] [place], [place] [address] (Wo rk) Social History Tobacco Use Types [...] week 03/05/2021 How often do you attend anglican or spiritism services? Never 03/05/2021 Do you belong to any clubs or organizations such as anglican N o 03/05/2021 groups, unions, fraternal or [...] - Height 173 cm (5' 8.11) 05/01/2016 9:17 AM SURVEILLANCE SYSTEM MONITOR Body Mass Index - - documented in [...]
--- OUTSIDE RECORDS SUMMARY | 2021-12-14 01:30 | XMS_ITS | Encounter Summary ---
:1990 Author Organization [facility] Address [address] [place] [address] Care Team Providers Name Role Phone Domonique Jones APRN, C.N.PSymone, D.N.P. Primary Care Provider Encounter Details Date Type Department Care Team Description 03/10/2017 Abstract Urgent [facility] in [place], Provider, [facility] [address] [place] [address] [facility] [phone] Social History Tobacco Use Types Packs/Day Years [...] week 03/05/2021 How often do you attend orthodoxy or congregation services? Never 03/05/2021 Do you belong to any clubs or organizations such as orthodoxy N o 03/05/2021 groups, unions, fraternal or [...] or slept in a fci (including now)? Sex Assigned at Date Recorded Female 01/16/2018 3:45 PM CDT documented as of this encounter Plan of Treatment Not on filedocumented as of this encounter Visit Diagnoses Not on filedocumented in this encounter Care Teams Voice Data Communications Engineer Relationship Specialty Start Date End Date Domonique Jones APRN, C.N.P., D.N.P. PCP - General 10/19/16 [address] [place] [phone] documented as of this encounter
--- OUTSIDE RECORDS SUMMARY | 2021-12-14 01:30 | XMS_ITS | Encounter Summary ---
:1990 Author Organization [facility] Address [address] [place] [address] Care Team Providers Name Role Phone Unavailable Primary Care Provider Unavailable Encounter Details Date Type Department Care Team Description 09/10/2016 Hospital Encounter HX NO MAPPING Vi Berry, DSymoneOSymone [address] [place] [address] (Wo rk) Social History Tobacco Use Types [...] week 03/05/2021 How often do you attend oriental orthodox or gnosticism services? Never 03/05/2021 Do you belong to any clubs or organizations such as oriental orthodox N o 03/05/2021 groups, unions, fraternal [...] or slept in a assisted (including now)? Sex Assigned at Date Recorded [...] Miscellaneous - Conversion, Historical Provider Ser - 09/10/2016 11:59 PM CDT Coding Summary-Paper Based CODING DATE: 09/20/2016 FINAL [facility] STATUS: * Discharged to Home or Self Care PAYOR: [employer] ADMIT DX: REASON FOR VISIT DX: FINAL DX: PRINCIPAL: J02.9 Acute pharyngitis, unspecified SECONDARY: PROCEDURES DOCTOR NAME DATE NOTE: The code number assigned matches the documented diagnosis and / or procedure in the patient's chart. However, the narrative phrase printed from the coding software may appear abbreviated, or result in slightly different terminology. Coded By: SILVANO HANNAH Date Saved: 09/20/2016 11:02 am Source: [facility] Document Id: [id number] documented in this encounter Plan of Treatment Not on filedocumented as of this encounter Visit Diagnoses Not on filedocumented in this encounter
--- OUTSIDE RECORDS SUMMARY | 2021-12-14 01:30 | XMS_ITS | Encounter Summary ---
:1990 Author Organization [facility] Address [address] [place] [address] Care Team Providers Name Role Phone Domonique Jones APRN, C.N.PSymone, D.N.P. Primary Care Provider Reason for Visit Reason Comments Cough 5 to 6 days Encounter Details Date Type Department Care Team Description 03/10/2017 Office Visit Urgent Care in [place], Infection Up per Monse Tyson M.D. Respiratory (Primary [address]) [place] [id number] [phone] Social History Tobacco Use Types Packs/Day Years [...] week 03/05/2021 How often do you attend denominational or yazidism services? Never 03/05/2021 Do you belong to any clubs or organizations such as denominational N o 03/05/2021 groups, unions, fraternal or [...] or slept in a penitentiary (including now)? Sex Assigned at Date Recorded Female 01/16/2018 3:45 PM CDT documented as of this encounter Last Filed Vital Signs Vital Sign Reading Time Taken Comments Blood Pressure 113/72 03/10/2017 1:10 PM CDT Pulse 64 03/10/2017 1:10 PM CDT Temperature 37 ??C (98.6 ??F) 03/10/2017 1:10 PM CDT Respiratory Rate 16 03/10/2017 1:10 PM CDT Oxygen Saturation 98% 03/10/2017 1:10 PM CDT Inhaled Oxygen Concentration - - Weight 56.4 kg (124 lb 5.4 oz) 03/10/2017 1:10 PM CDT Height - - Body Mass Index 19.06 02/22/2017 8:44 AM CDT documented in this encounter Patient Instructions Patient InstructionsPratik Mercado M.D. - 03/10/2017 12:45 PM CDT 1. Infection Upper Respiratory Comments: Etiology likely viral pharyngitis. Non-toxic appearing and vital signs are stable. -Patient education and reassurance provided. -Discussed etiology and expected course. -Supportive care. Encourage to eat fruits, vegetables and drink plenty of fluids. -Symptomatic treat with gargles, lozenges, and OTC analgesic as needed. -Follow-up with primary clinic if not improving. documented in this encounter Progress Notes Pratik Mercado M.D. - 03/10/2017 12:45 PM CDT URGENT CARE IN [place] Chief Complaint Chief Complaint Patient presents with ??? Cough 5 to 6 days HPI Cough Cough characteristics: Productive Sputum characteristics: Green and white Severity: Moderate Onset quality: Sudden Duration: 6 days Timing: Sporadic Progression: Worsening Chronicity: New Smoker: no Context: sick contacts Relieved by: Cough suppressants Worsened by: Lying down and activity Ineffective treatments: Cough suppressants Associated symptoms: chest pain and headaches Associated symptoms: no fever and no shortness of breath The following portions of the patient's history were reviewed and updated as appropriate in the EMR:allergies, current medications, family history, medical history, social history, surgical history and problem list on 03/10/17. REVIEW OF SYSTEMS Constitutional: Positive for fatigue. Negative for fever. Respiratory: Positive for cough. Negative for shortness of breath. Cardiovascular: Positive for chest pain, pressure or tightness. Negative for shortness of breath when lying flat. Neurological: Positive for headaches. PHSYCIAL EXAM Temperature: 37 ??C Resp Rate: 16 Blood Pressure: 113/72 SpO2: 98 % Weight: 56.4 kg Constitutional: She appears well-developed and well-nourished. No distress. Cardiovascular: Normal rate, regular rhythm and normal heart sounds. Pulmonary/Chest: Effort normal and breath sounds normal. LABS None ASSESSMENT AND PLAN 1. Infection Upper Respiratory Comments: Etiology likely viral pharyngitis. Non-toxic appearing and vital signs are stable. -Patient education and reassurance provided. -Discussed etiology and expected course. -Supportive care. Encourage to eat fruits, vegetables and drink plenty of fluids. -Symptomatic treat with gargles, lozenges, and OTC analgesic as needed. -Follow-up with primary clinic if not improving. documented in this encounter Plan of Treatment Not on filedocumented as of this encounter Visit Diagnoses Diagnosis Infection Upper Respiratory - Primary documented in this encounter Care Teams Contact Lens Technician Relationship Specialty Start Date End Date Domonique Jones APRN, C.N.P., D.N.P. PCP - General 10/19/16 [address] [place] [address] documented as of this encounter
--- OUTSIDE RECORDS SUMMARY | 2021-12-14 01:30 | XMS_ITS | Encounter Summary ---
:1990 Author Organization [facility] Address [address] [place] [address] Care Team Providers Name Role Phone Domonique Jones APRN, C.N.PSymone, D.N.P. Primary Care Provider Encounter Details Date Type Department Care Team Description 02/22/2017 Hospital Encounter HX NO MAPPING Yani Denis [...] week 03/05/2021 How often do you attend baptist or church services? Never 03/05/2021 Do you belong to any clubs or organizations such as baptist N o 03/05/2021 groups, unions, fraternal or [...] Miscellaneous - Conversion, Historical Provider Ser - 02/22/2017 11:59 PM CDT Coding Summary-Paper Based CODING DATE: 03/06/2017 FINAL [facility] STATUS: * Discharged to Home or Self Care PAYOR: [employer] ADMIT DX: REASON FOR VISIT DX: FINAL DX: PRINCIPAL: Z11.3 Encounter for screening for infections with a predominantly sexual mode of transmission SECONDARY: PROCEDURES DOCTOR NAME DATE NOTE: The code number assigned matches the documented diagnosis and / or procedure in the patient's chart. However, the narrative phrase printed from the coding software may appear abbreviated, or result in slightly different terminology. Coded By: SILVANO HANNAH Date Saved: 03/06/2017 09:59 am Source: [facility] Document Id: [id number] documented in this encounter Plan of Treatment Not on filedocumented as of this encounter Visit Diagnoses Not on filedocumented in this encounter Care Teams Enforcement Safety Officer Relationship Specialty Start Date End Date Domonique Jones APRN, C.N.P., D.N.P. PCP - General 10/19/[address] [place] [address] documented as of this encounter
--- OUTSIDE RECORDS SUMMARY | 2021-12-14 01:30 | XMS_ITS | Encounter Summary ---
:1990 Author Organization [facility] Address [address] [place] [address] Care Team Providers Name Role Phone Unavailable Primary Care Provider Unavailable Encounter Details Date Type Department Care Team Description 09/10/2016 Hospital Encounter HX [facility] Mera Berry DSymoneOSymone [id number] [id number] (Wo rk) Social History Tobacco Use Types [...] How often do you attend orthodox or buddhism services? Never 03/05/2021 Do you [...] Sign Reading Time Taken Comments Blood Pressure 105/57 09/10/2016 8:07 AM CDT Pulse 55 09/10/2016 8:07 AM CDT Temperature - - Respiratory Rate 16 09/10/2016 8:07 AM CDT Oxygen Saturation - - Inhaled Oxygen Concentration - - Weight 56 kg (123 lb 7.3 oz) 09/10/2016 8:07 AM CDT Height 173 cm (5' 8.11) 09/10/2016 8:07 AM CDT Body Mass Index 18.71 09/10/2016 8:07 AM CDT documented in this encounter Medications [...] documented as of this encounter Progress Notes Gt Berry D.O. - 09/10/2016 7:58 AM CDT [id number] CHIEF COMPLAINT/REASON FOR VISIT Strep concern. HISTORY OF PRESENT ILLNESS Patient is a 26-year-old female who presents for above. She felt sore throat onset Sunday. Subjective fevers. 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 Has had some nasal congestion, facialswelling, but no other symptoms and no rashes. PHYSICAL EXAMINATION VITAL SIGNS: Per EMR. GENERAL: Patient well-appearing. HEENT: Mucous membranes moist. Mild erythema of the posterior pharynx. No exudates. Nares mildly boggy. No maxillary sinus tenderness. No conjunctival injection. Tympanic membranes clear. LUNGS: Clear to auscultation bilaterally without wheeze, rales or rhonchi. HEART: Regular pulse. No murmur. EXTREMITIES: Well perfused. DIAGNOSTICS Rapid strep negative. Culture pending. IMPRESSION/REPORT/PLAN 1. Probable viral pharyngitis. 2. Rule out strep pharyngitis. PLAN: 1. Educated patient on the self-limited process of this diagnosis. 2. Told her to take Chloraseptic spray, ibuprofen, Tylenol for fever or pain. 3. Will call her with the result if strep culture positive and provide antibiotics - She tolerates penicillin. Gt Berry D.O./shaneka Electronically Signed By: GT BERRY DO On: 09/30/2016 12:53 PM Source: [facility] MHSDOLBEYNONRADSYS Document Id: [id number] documented in this encounter Procedure Notes Carin Austin RSymoneMMaryan - 09/10/2016 8:18 AM CDT Rapid Strep A Screen POC Rapid Strep A Screen POC Entered On: 09/10/2016 8:19 CDT Performed On: 09/10/2016 8:18 CDT by CARIN AUSTIN Rapid Strep A Screen POC Rapid Strep A Screen POC : Negative CARIN AUSTIN - 09/10/2016 8:18 CDT Source: [facility] POWERCHART Document Id: [id number] CDT!3 documented in this encounter Miscellaneous Notes Miscellaneous - Carin Austin R.MMaryan - 09/10/2016 8:07 AM CDT Adult Director Financial Planning Intake/History Adult Director Financial Planning Intake/History Entered On: 09/10/2016 8:10 CDT Performed On: 09/10/2016 8:07 CDT by CARIN AUSTIN Intake Chief Complaint : I think I have strep Onset of Symptoms : Sunday Temperature Oral : 36.9 DegC(Converted to: 98.4 DegF) Peripheral Pulse Rate : 55 /min (LOW) Respiratory Rate : 16 /min Systolic Blood Pressure : 105 mmHg Diastolic Blood Pressure : 57 mmHg NIBP Mean : 73 mmHg BP Location : Right upper extremity Height : 173 cm(Converted to: 5 ft 8 inch(es), 68 inch(es)) Actual Weight : 56.0 kg(Converted to: 123 lb 7 oz) Dosing Weight Clinic : 56 kg Clinic BSA : 1.64 Body Mass Index : 18.71 kg/m2 CARIN AUSTIN - 09/10/2016 8:07 CDT General Info Information Given By : Patient Languages : Venezuelan Is Patient Female and 13-50 no hysterectomy : Yes Status : Patient denies Are you ? : No CARIN AUSTIN - 09/10/2016 8:07 CDT Subjective Pain Symptoms : No CARIN AUSTIN - 09/10/2016 8:07 CDT Dependent Habits Exposure to Tobacco Smoke : Other: Never Smoking Status : Never smoker Tobacco 2A : No Tobacco Use/Currently Using : No Tobacco Use/Last 30 Days : No Tobacco Use/Last 12 months : No CARIN AUSTIN - 09/10/2016 8:07 CDT Source: [facility] POWERCHART Document Id: [id number] CDT!31 documented in this encounter Plan of Treatment Not on filedocumented as of this encounter Procedures Procedure Name Priority Date/Time Associated Diagnosis Comme nts RAPID STREP A Routine 09/10/2016 8:00 AM Results for this SCREEN CDT procedure are i n the results section. documented in this encounter Results Rapid Strep A Screen (09/10/2016 8:00 AM CDT) [facility] Method Time Signature HXRapid Strep POWERCHART Confirmation HXPre Negative for POWERCHART Group A Strep by culture. HXFinal Negative for POWERCHART Group A Strep by culture. Specimen (Source) Anatomical Collection Method Collection Time Re ceived Time Location / / Volume Laterality Throat 09/10/2016 8:00 AM CDT Gt T Poterucha D.O. LAB MICROBIOLOGY - GENERAL O RDERABLES Performing Organization Address City/State/ZIP Code Phon e Number POWERCHART documented in this encounter Visit Diagnoses Not on filedocumented in this encounter
--- OUTSIDE RECORDS SUMMARY | 2021-12-14 01:31 | XMS_ITS | Encounter Summary ---
:1990 Author Organization [facility] Address [address] [place] [address] Care Team Providers Name Role Phone Unavailable Primary Care Provider Unavailable Encounter Details Date Type Department Care Team Description 01/24/2016 Hospital Encounter HX [facility] Judith Sage [...] How often do you attend adventist or yarsanism services? Never 03/05/2021 Do you [...] Sign Reading Time Taken Comments Blood Pressure 120/74 01/24/2016 2:54 PM CDT Pulse 60 01/24/2016 2:54 PM CDT Temperature - - Respiratory Rate - - Oxygen Saturation - - Inhaled Oxygen Concentration - - Weight 55.7 kg (122 lb 12.7 oz) 01/24/2016 2:54 PM CDT Height 173 cm (5' 8.11) 01/24/2016 2:54 PM CDT Body Mass Index 18.61 01/24/2016 2:54 PM CDT documented in this encounter Medications at Time of Discharge Medication Sig Dispensed Refills Start Date End Date magnesium citrate 100 Take 300 mL by mouth 0 11/0603/10/2017 mg tablet as needed. pimecrolimus (ELIDEL) 1 Apply 1 application 0 04/201603/21/2021 % cream topically 2 (two) times a day. Patient stated she uses as needed documented as of this encounter Progress Notes Judith Dunne M.S.N. - 01/24/2016 2:44 PM CDT [id number] CHIEF COMPLAINT/REASON FOR VISIT Claudia is a 26-year-old female who presents for colposcopy following an ASCUS Pap test on 12/17/2015. She did have positive HPV findings as well. She has had no previous abnormal Pap smears and is quite anxious about today's visit and colposcopy. She is a nonsmoker using TriNessa control pillsfor contraception. She has no complaints of pelvic pain, vaginal discharge or unusual vaginal bleeding. We discussed the current options for evaluation and management of her Pap smear findings including the indication for colposcopy. She wishes to proceed with colposcopy. Her mother accompanies her totoday's appointment and stays for the exam per her request. PAST MEDICAL/SURGICAL HISTORY No pertinent positives with regard to today's exam. MEDICATIONS Reviewed per EMR dated 01/24/2016. ALLERGIES Zithromax. VITAL SIGNS Heart rate 68, blood pressure 120/74, height 173 cm, weight 55.7 kg, BMI 18.61. PHYSICAL EXAMINATION Sensitive portion of this exam was dry pan charger by Joellen Harden LPN. During this procedure the universal protocol was utilized. The patient's identity was confirmed by no less than 2 patient identifiers, correct site was verified and marked as applicable, and a final pause was completed. After safe site verification was performed and consent form was signed, this 26-year-old female was placed in the dorsal lithotomy position. The lower genital tract was visualized with the colposcope under low power magnification with a bright light. The cervix was then examined under low power, high power, andwith green light filter. The entire squamocolumnar junction was seen and identified in its entirety.Acetic acid was applied to the upper vagina and cervix in the usual fashion. Areas of white epithelium were noted: At 4 o'clock and 9 o'clock. Biopsies were taken at 4 o'clock and 9 o'clock and sent for pathology review. No local anesthetic was used for the biopsy. Pressure with a cotton tip swab and s ilver nitrate were used for hemostasis. Overall she tolerated the procedure quite well with minimal discomfort. IMPRESSION/REPORT/PLAN Abnormal Papanicolaou showing atypical squamous cells of undetermined significance Pap smear findings with positive human papillomavirus. She has received Gardasil vaccination in the past. Adequate colposcopy based on complete visualization of the transformation zone. 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 Post colposcopy instructions reviewedwith patient. She will be contacted with her biopsy results within the next 3 to 5 days. Further evaluation or follow up based on her biopsy results. She was given printed information regarding abnormal Pap smears, human papillomavirus and colposcopy. Questions answered. Guevara Norton/shaneka Electronically Signed By: JUDITH DUNNE NP On: 02/02/2016 01:13 PM Source: [facility] MHSDOLBEYNONRADSYS Document Id: [id number] documented in this encounter Miscellaneous Notes Miscellaneous - Judith Dunne, M.S.N. - 01/24/2016 6:48 PM CDT Ambulatory Discharge Medication List [facility] [address] [facility] [place] [id number] Visit Information Name: CLAUDIA MARTEL [facility] Number: [id number] Visit Date: 01/24/2016 18:48:47 Attending Provider: JUDITH DUNNE NP Primary Care Provider: SIMI RICARDO PA-C CLAUDIA MARTEL has been given the following list of medications: Your Medications It is important to take your medications as directed. Use a pill box or chart to help remind you to take your medications. Please let your doctor or nurse know if you have problems taking your medications. Medication/Strength How to Take Indications/Special Instructions/Comments/Notes for Patient Medication Changes/Routing albuterol (albuterol CFC free 90 mcg/inh inhalation aerosol) 2 puff(s), Inhalation, four times a dayas needed for Shortness of breath / Wheezing 15 to 30min before exercise *calcium-vitamin D (Calcium 500+D) 1 Tablet(s), as needed *fluticasone-salmeterol (Advair Diskus 100 mcg-50 mcg inhalation powder) 1 puff(s), Inhalation, two times a day magnesium citrate (magnesium citrate) 300 Milliliter, Oral, as needed Restless legs Misc Prescription (Multiple Vitamin- Herbalife) Take 1 tablet, 3x daily Misc Prescription (Cell Activator-Herbalife) Take 1 tablet, 3xday norgestimate-ethinyl estradiol (TriNessa oral tablet) 1 Tablet(s), Oral, once a day pimecrolimus topical (Elidel 1% topical cream) 1 mery, Topical, two times a day * You have let us know that you are not taking this medication as listed. Please talk with your primary care provider or the health care provider who prescribed the medication as soon as possible. Stop Taking the Following Medications: Medication list as of 01-24-16 18:48 Attention: If you have any medications at [...] Electronically Signed By: JUDITH DUNNE NP Signed On:24-JAN-2016 18:48:45 Additional Information: Source: [facility] POWERCHART Document Id: [id number] Miscellaneous - Judith Dunne, M.S.N. - 01/24/2016 6:48 PM CDT Ambulatory Patient Summary [facility] [address] [place], [place] [id number] Visit Information Name: CLAUDIA MARTEL [facility] Number: [id number] Current Date: 01/24/2016 18:48:48 Physicians Attending Provider: JUDITH DUNNE NP Primary Care Provider: SIMI RICARDO PA-C CLAUDIA MARTEL has been given [...] Take Indications/Special Instructions/Comments/Notes for Patient Medication Changes/Routing albuterol (albuterol CFC free 90 mcg/inh inhalation aerosol) 2 puff(s), Inhalation, four times a dayas needed for Shortness of breath / Wheezing 15 to 30min before exercise *calcium-vitamin D (Calcium 500+D) 1 Tablet(s), as needed *fluticasone-salmeterol (Advair Diskus 100 mcg-50 mcg inhalation powder) 1 puff(s), Inhalation, two times a day magnesium citrate (magnesium citrate) 300 Milliliter, Oral, as needed Restless legs Misc Prescription (Multiple Vitamin- Herbalife) Take 1 tablet, 3x daily Misc Prescription (Cell Activator-Herbalife) Take 1 tablet, 3xday norgestimate-ethinyl estradiol (TriNessa oral tablet) 1 Tablet(s), Oral, once a day pimecrolimus topical (Elidel 1% topical cream) 1 mery, Topical, two times a day * You have let us know that you are not taking this medication as listed. Please talk with your primary care provider or the health care provider who prescribed the medication as soon as possible. Stop Taking the Following Medications: Medication list as of 01-24-16 18:48 Attention: If you have any medications at [...] of emergency. Electronically Signed By: JUDITH DUNNE SALES COACH Signed On:24-JAN-2016 18:48:45 Your Allergies & Intolerances Substance Reaction Symptoms Category Comments Zithromax Z-Juan rash Drug Your Problem List [...] if you dont have one. Go to [email or web address] and click on Create Your Account. Then, follow the directions to complete the online form. Youll be asked for your [facility] number which you can find at the top of this document. Your Goals/Additional instructions: Source: [facility] POWERCHART Document Id: [id number] Miscellaneous - Joellen Harden L.PSymoneN. - 01/24/2016 2:54 PM CDT Adult Electrical Engineer Intake/History Adult Electrical Engineer Intake/History Entered On: 01/24/2016 14:57 CDT Performed On: 01/24/2016 14:54 CDT by JOELLEN HARDEN LPN Intake Chief Complaint : colposcopy LMP Date : 01-10-2016 Peripheral Pulse Rate : 60 /min Systolic Blood Pressure : 120 mmHg Diastolic Blood Pressure : 74 mmHg NIBP Mean : 89 mmHg BP Location : Left upper extremity Blood Pressure Cuff Size : Regular Height : 173 cm(Converted to: 5 ft 8 inch(es), 68 inch(es)) Actual Weight : 55.7 kg(Converted to: 122 lb 13 oz) Dosing Weight Clinic : 55.7 kg Clinic BSA : 1.64 Body Mass Index : 18.61 kg/m2 JOELLEN HARDEN LPN - 01/24/2016 14:54 CDT General Info Languages : Polish Is Patient Female and 13-50 no hysterectomy : Yes Status : Patient denies Are you ? : No JOELLEN HARDEN LPN - 01/24/2016 14:54 CDT Subjective Pain Symptoms : No JOELLEN HARDEN LPN - 01/24/2016 14:54 CDT Dependent Habits Exposure to Tobacco Smoke : Other: Never Smoking Status : Never smoker Tobacco 2A : No Tobacco Use/Currently Using : No Tobacco Use/Last 30 Days : No Tobacco Use/Last 12 months : No JOELLEN HARDEN LPN - 01/24/2016 14:54 CDT Source: [facility] POWERCHART Document Id: [id number] CDT!29 documented in this encounter Plan of Treatment Not on filedocumented as of this encounter Procedures Procedure Name Priority Date/Time Associated Diagnosis Comme nts SURGICAL PATHOLOGY Routine 01/24/2016 10:11 AM Re sults for this CDT procedure are i n the results section. documented in this encounter Results Pathology Surgical Pathology (01/24/2016 10:11 AM CDT) Specimen (Source) Anatomical Collection Method Collection Time Re ceived Time Location / / Volume Laterality 01/24/2016 10:11 AM CDT Narrative [facility] - 01/26/2016 10:55 AM CDT [facility] [address], [address] [place] [address] Patient Name: CLAUDIA MARTEL Patient ID #: [id number] Collected: 01/24/2016 Address: City/State/Zip: [facility] [place], [place] [address] Received: Reported: 01/25/2016 01/26/2016 Soc. Sec. #: ?/Age/Sex 1990 (Age: 26) ??F Physician(s): ZACH DUNNE NP Copy To: ? [facility] ??[id number] [address] [facility], ??[place] ??[address] SURGICAL PATHOLOGY REPORT FINAL DIAGNOSIS: A. ??CERVIX, 2 O'CLOCK BIOPSY: --- UNREMARKABLE ECTOCERVICAL SQUAMOUS M UCOSA. B. ??CERVIX, 5 O'CLOCK BIOPSY: --- MINUTE FRAGMENT OF UNREMARKABLE SHARP SFORMATION ZONE CERVIX WITH MILD CHRONIC INFLAMMATION. [facility]/01/26/2016 MATTHEW SALGUERO M.D. Report electronically released. Interpretation by MATTHEW SALGUERO M.D. SPECIMEN(S) RECEIVED: 1:A. 2 O'CLOCK CERVICAL BIOPSY 2:B. 5 O'CLOCK CERVICAL BIOPSY GROSS DESCRIPTION: A. Submitted as 2 o'clock cervical biops y are armstrong mucosal fragments aggregating to 0.2 cm. ESB, one cassette. B. Submitted as 5 o'clock cervical biops y is a armstrong mucosal fragment, 0.2 cm in greatest dimension. ESB, one cassette. ([id number], [id number]) [facility]/01/25/2016 MICROSCOPIC DESCRIPTION: Reviewed by Matthew Salguero M.D.; Path ologist [facility]/01/26/2016 Cindy Ochoa M.D. LAB SURG PATH ORDERABLES Performing Organization Address City/State/ZIP Code Phon e Number [facility] documented in this encounter Visit Diagnoses Not on filedocumented in this encounter
--- OUTSIDE RECORDS SUMMARY | 2021-12-14 01:31 | XMS_ITS | Encounter Summary ---
:1990 Author Organization [facility] Address [address] [place] [address] Care Team Providers Name Role Phone Unavailable Primary Care Provider Unavailable Encounter Details Date Type Department Care Team Description 03/08/2016 Hospital Encounter [facility] Agapito Loja M.D. [address] [place] [address] ([place]) Social History Tobacco Use Types Packs/Day Years [...] How often do you attend christianity or anabaptist services? Never 03/05/2021 Do you belong to [...] Sign Reading Time Taken Comments Blood Pressure 105/54 03/08/2016 12:41 PM CDT Pulse 60 03/08/2016 12:41 PM CDT Temperature - - Respiratory Rate 15 03/08/2016 12:41 PM CDT Oxygen Saturation - - Inhaled Oxygen Concentration - - Weight 55.6 kg (122 lb 9.2 oz) 03/08/2016 12:41 PM CDT Height 173 cm (5' 8.11) 03/08/2016 12:41 PM CDT Body Mass Index 18.58 03/08/2016 12:41 PM CDT documented in this encounter Medications at Time of Discharge Medication Sig Dispensed Refills Start Date End Date magnesium citrate 100 Take 300 mL by mouth 0 11/0603/10/2017 mg tablet as needed. pimecrolimus (ELIDEL) 1 Apply 1 application 0 04/201603/21/2021 % cream topically 2 (two) times a day. Patient stated she uses as needed documented as of this encounter Progress Notes Willard Loja M.D. - 03/08/2016 11:23 AM CDT [id number] Patient presents with a recurrence of her sinus infection. She was treated about 6 weeks ago for it,and it never seemed to really go away. She is still having sinus pressure with drainage. She has nothad a fever. No significant cough. No risk of . Her fiance has had a bad cough as well. Shesaid she feels pressure around her eyes. She has not had any breathing problems. She has not been using her inhalers. MEDICATIONS We reviewed her medication. We reviewed her allergies. VITAL SIGNS Per EMR. PHYSICAL EXAMINATION HEENT: Ears are clear bilaterally. There is both frontal and maxillary sinus tenderness. Throat appears negative though. NECK: No adenopathy in the neck. LUNGS: Clear to auscultation. IMPRESSION/REPORT/PLAN Persistent recurring sinusitis. Recommend Ceftin and a Medrol Dosepak. Also consider using Flonase nasal spray over the counter so that this does not recur after she is done with the medication. She might benefit from taking the medication longer since it has been going for up to 3 weeks. She will continue to monitor that. Willadr Loja M.D./shaneka Electronically Signed By: WILLARD LOJA MD On: 03/10/2016 12:36 PM Source: [facility] MHSDOLBEYNONRADSYS Document Id: [id number] documented in this encounter Miscellaneous Notes Miscellaneous - Willard Loja M.D. - 03/08/2016 1:28 PM CDT Ambulatory Patient Summary [address] [id number] Visit Information Name: CLAUDIA MARTEL [facility] Number: [id number] Current Date: 03/08/2016 13:28:38 Physicians Attending Provider: UNKNOWN1, PROVIDER Primary Care Provider: SIMI RIACRDO PA-C CLAUDIA MARTEL has been given the [...] D (Calcium 500+D) 1 Tablet(s), as needed cefuroxime (Ceftin 500 mg oral tablet) 1 Tablet(s), Oral, two times a day x 10 day(s) New Routed to [facility] [address] [place] [address] fluticasone-salmeterol (Advair Diskus 100 mcg-50 mcg inhalation powder) 1 puff(s), Inhalation, two times a day magnesium citrate (magnesium citrate) 300 Milliliter, Oral, as needed Restless legs methylPREDNISolone (Medrol Dosepak 4 mg oral tablet) See special instructions, Oral, as directed x 6day(s) as directed on package labeling New Routed to [facility] [address] [id number] Misc Prescription (Multiple Vitamin- Herbalife) Take 1 tablet, 3x daily Misc Prescription (Cell Activator-Herbalife) Take 1 tablet, 3xday norgestimate-ethinyl estradiol (TriNessa oral tablet) 1 Tablet(s), Oral, once a day pimecrolimus topical (Elidel 1% topical cream) 1 mery, Topical, two times a day Stop Taking the Following Medications: Medication list as of 03-08-16 13:28 Attention: If you have any medications at home that are not on this list, DO NOT take them until youcontact your provider for clarification. Give a copy of your medication list to your primary care provider. Update your medication list any time medications or doses are changed and carry your medication list at all times in case of emergency. Electronically Signed By: WILLARD LOJA MD Signed On:08-MAR-2016 13:16:48 Your Allergies & Intolerances Substance Reaction Symptoms Category Comments amoxicillin Drug Zithromax Z-Juan rash Drug Your Problem [...] if you dont have one. Go to [email or web address] and click on Create Your Account. Then, follow the directions to complete the online form. Youll be asked for your [facility] number which you can find at the top of this document. Your Goals/Additional instructions: Source: [facility] POWERCHART Document Id: [id number] Miscellaneous - Willard Loja M.D. - 03/08/2016 1:28 PM CDT Ambulatory Discharge Medication List [facility] [address] [facility] [place] [id number] Visit Information Name: CLAUDIA MARTEL [facility] Number: [id number] Current Date: 03/08/2016 13:28:36 Attending Provider: UNKNOWN1, PROVIDER Primary Care Provider: SIMI RICARDO PA-C CLAUDIA [...] D (Calcium 500+D) 1 Tablet(s), as needed cefuroxime (Ceftin 500 mg oral tablet) 1 Tablet(s), Oral, two times a day x 10 day(s) New Routed to [facility] [address] [place] [address] fluticasone-salmeterol (Advair Diskus 100 mcg-50 mcg inhalation powder) 1 puff(s), Inhalation, two times a day magnesium citrate (magnesium citrate) 300 Milliliter, Oral, as needed Restless legs methylPREDNISolone (Medrol Dosepak 4 mg oral tablet) See special instructions, Oral, as directed x 6day(s) as directed on package labeling New Routed to [facility] [address] [place], [place] Misc Prescription (Multiple Vitamin- Herbalife) Take 1 tablet, 3x daily Misc Prescription (Cell Activator-Herbalife) Take 1 tablet, 3xday norgestimate-ethinyl estradiol (TriNessa oral tablet) 1 Tablet(s), Oral, once a day pimecrolimus topical (Elidel 1% topical cream) 1 mery, Topical, two times a day Stop Taking the Following Medications: Medication list as of 03-08-16 13:28 Attention: If you have any medications at home that are not on this list, DO NOT take them until youcontact your provider for clarification. Give a copy of your medication list to your primary care provider. Update your medication list any time medications or doses are changed and carry your medication list at all times in case of emergency. Electronically Signed By: WILLARD LOJA MD Signed On:08-MAR-2016 13:16:48 Additional Information: Source: [facility] POWERCHART Document Id: [id number] Miscellaneous - Valentina Morales, L.P.N. - 03/08/2016 12:41 PM CDT Adult Educational Director Intake/History Adult Educational Director Intake/History Entered On: 03/08/2016 12:43 CDT Performed On: 03/08/2016 12:41 CDT by VALENTINA MORALES ASSOCIATE SOFTWARE ENGINEER Intake Chief Complaint : sinus infection, facial pain adn pressure, drainage persist pt was treated with augmentin not long ago but sx have not gone away Temperature Core : 36.7 DegC(Converted to: 98.1 DegF) Peripheral Pulse Rate : 60 /min Respiratory Rate : 15 /min Systolic Blood Pressure : 105 mmHg Diastolic Blood Pressure : 54 mmHg NIBP Mean : 71 mmHg Height : 173 cm(Converted to: 5 ft 8 inch(es), 68 inch(es)) Actual Weight : 55.6 kg(Converted to: 122 lb 9 oz) Dosing Weight Clinic : 55.6 kg Clinic BSA : 1.63 Body Mass Index : 18.58 kg/m2 VALENTINA MORALES LPN - 03/08/2016 12:41 CDT General Info Information Given By : Patient Preferred Communication Mode : Verbal Languages : Turkish Is Patient Female and 13-50 no hysterectomy : Yes Status : Patient denies Are you ? : No VALENTINA MORALES LPN - 03/08/2016 12:41 CDT Subjective Pain Symptoms : Yes VALENTINA MORALES LPN - 03/08/2016 12:41 CDT Dependent Habits Exposure to Tobacco Smoke : Other: Never Smoking Status : Never smoker Tobacco 2A : No Tobacco Use/Currently Using : No Tobacco Use/Last 30 Days : No Tobacco Use/Last 12 months : No VALENTINA MORALES LPN - 03/08/2016 12:41 CDT [facility] Document Id: [id number] CDT!30 documented in this encounter Plan of Treatment Not on filedocumented as of this encounter Visit Diagnoses Not on filedocumented in this encounter
--- OUTSIDE RECORDS SUMMARY | 2021-12-14 01:31 | XMS_ITS | Encounter Summary ---
:1990 Author Organization [facility] Address [address] [place] [address] Care Team Providers Name Role Phone Unavailable Primary Care Provider Unavailable Encounter Details Date Type Department Care Team Description 09/15/2014 Hospital Encounter HX [facility] Rafiq Boyle, P.A. -C. [address] [facility] [place] [address] (Wo rk) Social History Tobacco [...] How often do you attend baptist or mandaeism services? Never 03/05/2021 Do you [...] Sign Reading Time Taken Comments Blood Pressure 124/58 09/15/2014 5:15 PM CDT Pulse 54 09/15/2014 5:15 PM CDT Temperature - - Respiratory Rate 14 09/15/2014 5:15 PM CDT Oxygen Saturation - - Inhaled Oxygen Concentration - - Weight 56.9 kg (125 lb 7.1 oz) 09/15/2014 5:15 PM CDT Height 173 cm (5' 8.11) 09/15/2014 5:15 PM CDT Body Mass Index 19.01 09/15/2014 5:15 PM CDT documented in this encounter Progress Notes Rafiq Boyle - 09/15/2014 5:03 PM CDT [id number] CHIEF COMPLAINT/REASON FOR VISIT Left foot pain. HISTORY OF PRESENT ILLNESS The patient is very concerned about the possibility of a stress fracture because she is an avid runner. She states that she runs almost every day. On September 05 she ran 13 miles very fast, and ever since she feels like there has been tenderness in the left foot. She is concerned about the possibility of a stress fracture. She states that even after she had developed pain, she is still ran. Sunday she ran 3 miles and on Sunday she ran 5 miles last week. She has not been running ever since. She statesthat the pain is on the 5th metatarsal. She denied any instability. She denied noticing any significant amount of swelling. Denied any numbness or tingling. Denied any previous trauma to the affected area. No other specific concerns or problems noted. MEDICATIONS Please refer to EMR. ALLERGIES Please refer to EMR. PHYSICAL EXAMINATION GENERAL: Pleasant 24-year-old female, no appreciable distress. Alert, awake, and responds appropriately to auditory and visual stimuli. EXTREMITIES: Examination of the left foot, the patient does appear to have tenderness along the fifth metatarsal, predominantly at the base of the 5th metatarsal. Pain is present. Normal sensation in the left lower extremity. The rest of the foot appears to be normal without any evidence of acute or chronic trauma. DIAGNOSTICS X-ray was performed. To my review, I did not appreciate any acute anomaly. IMPRESSION/REPORT/PLAN Sprain/strain of the foot. PLAN: Patient elected to use a walker, Air [employer], stating that it is more comfortable for her to ambulate. She was advised to elevate the extremity, use Tylenol, Motrin for discomfort. I did suggest that she is to avoid running and use low impact exercised. In particular, substitute runny for bicycling. I did advise that swimming would be an option also. She will followup a week from now if the pain remains the same. I did answer her questions. She is comfortable with this plan. Rafiq Boyle P.A.-C/shaneka Electronically Signed By: RAFIQ BOYLE On: 09/18/2014 04:14 PM Source: [facility] MHSDOLBEYNONRADSYS Document Id: [id number] documented in this encounter Miscellaneous Notes Miscellaneous - Rafiq Boyle - 09/15/2014 9:48 PM CDT Ambulatory Patient Summary [facility] [address] [place] [id number] Visit Information Name: CLAUDIA MARTEL [facility] Number: [id number] Current Date: 09/15/2014 21:48:15 Physicians Attending Provider: RAFIQ BOYLE Primary Care Provider: RIRI JAMES MIS MANAGER CLAUDIA MARTEL has been given the following [...] Take Indications/Special Instructions/Comments/Notes for Patient Medication Changes/Routing acetaminophen/dextromethorphan/PSE (Dayquil Liquicaps) 2 cap, Oral, every 4 hours as needed for Cough and congestion albuterol (Ventolin 90 mcg/inh inhalation aerosol with adapter) naproxen (naproxen 500 mg oral tablet) 1 Tablet(s), Oral, two times a day norgestimate-ethinyl estradiol (TriNessa oral tablet) 1 Tablet(s), Oral, once a day Stop Taking the Following Medications: Medication list as of 09-15-14 21:48 Attention: If you have any medications at home that are not on this list, DO NOT take them until youcontact your provider for clarification. Give a copy of your medication list to your primary care provider. Update your medication list any time medications or doses are changed and carry your medication list at all times in case of emergency. Electronically Signed By: RAFIQ BOYLE Signed On:15-SEP-2014 21:48:04 Your Allergies & Intolerances Substance Reaction Symptoms Category Comments Zithromax Z-Juan rash Drug Your Problem List Problem Status Onset Comments Whiplash Active 10/15/2007 History of PDA WITH SURGICAL REPAIR Active 02/14/10 AT AGE 11 Revision septoplasty Active Oral contraception Active General examination of patient Active Exam General Medical NOS (GME) Active Cough Bronchospastic Active Body Mass Index (BMI) Less Than 19 Adult Active Your Upcoming Appointments Date Time Location Provider No Appointments found Attention: Contact your local Clinic if further appointment detail needed. Your Goals/Additional instructions: Source: [facility] POWERCHART Document Id: [id number] Miscellaneous - Rafiq Boyle - 09/15/2014 9:48 PM CDT Ambulatory Discharge Medication List [facility] [address] [place] [id number] Visit Information Name: TAHMINACLAUDIA MEYER [facility] Number: [id number] Visit Date: 09/15/2014 21:48:14 Attending Provider: RAFIQ BOYLE Primary Care Provider: RIRI JAMESP TAHMINA CLAUDIA SYED has been given the following list of medications: Your Medications It is important to take your medications as directed. Use a pill box or chart to help remind you to take your medications. Please let your doctor or nurse know if you have problems taking your medications. Medication/Strength How to Take Indications/Special Instructions/Comments/Notes for Patient Medication Changes/Routing acetaminophen/dextromethorphan/PSE (Dayquil Liquicaps) 2 cap, Oral, every 4 hours as needed for Cough and congestion albuterol (Ventolin 90 mcg/inh inhalation aerosol with adapter) naproxen (naproxen 500 mg oral tablet) 1 Tablet(s), Oral, two times a day norgestimate-ethinyl estradiol (TriNessa oral tablet) 1 Tablet(s), Oral, once a day Stop Taking the Following Medications: Medication list as of 09-15-14 21:48 Attention: If you have any medications at home that are not on this list, DO NOT take them until youcontact your provider for clarification. Give a copy of your medication list to your primary care provider. Update your medication list any time medications or doses are changed and carry your medication list at all times in case of emergency. Electronically Signed By: RAFIQ BOYLE Signed On:15-SEP-2014 21:48:04 Additional Information: Source: [facility] POWERCHART Document Id: [id number] Miscellaneous - Rafiq Boyle - 09/15/2014 7:22 PM CDT Custom Result Letter 15 Sep 2014 CLAUDIA MARTEL [address] [place] [id number] Dear CLAUDIA MARTEL, You were examined in my office on: 09/15/14 Reason for work excuse: Injury Is excused from all work: No Restrictions: ambulation per pt comfort Return to Work date: 09/16/14 with restrictions Notes: Pt was dignosed with foot sprain; wear boot, follow up required in 1 week if still symptomatic, please call with questions Sincerely, RAFIQ BOYLE [address] [place], [place] [address], [place] [address] Electronic Signature Electronically Signed By: RAFIQ BOYLE On: 15 Sep 2014 This document has images extracted. Source: [facility] POWERCHART Document Id: [id number] Electronically signed by Conversion, [facility] Back Roll Lathe Operator [id number] at 10/01/2016 6:45 PM CDT Miscellaneous - Messi Beckman RSymoneNSymone - 09/15/2014 5:15 PM CDT Adult Gang Head Saw Operator Intake/History Adult Gang Head Saw Operator Intake/History Entered On: 09/15/2014 17:19 CDT Performed On: 09/15/2014 17:15 CDT by MESSI BECKMAN Intake Chief Complaint : left foot pain - possible stress fracture Temperature Oral : 36.9 DegC(Converted to: 98.4 DegF) Peripheral Pulse Rate : 54 /min (LOW) Respiratory Rate : 14 /min Systolic Blood Pressure : 124 mmHg Diastolic Blood Pressure : 58 mmHg NIBP Mean : 80 mmHg BP Location : Right upper extremity Blood Pressure Cuff Size : Regular Height : 173 cm(Converted to: 5 ft 8 inch(es), 68 inch(es)) Actual Weight : 56.9 kg(Converted to: 125 lb 7 oz) Weight Source : Standing scale Dosing Weight Clinic : 56.9 kg Clinic BSA : 1.65 Body Mass Index : 19.01 kg/m2 MESSI BECKMAN - 09/15/2014 17:15 CDT General Info Information Given By : Patient Languages : Romanian Is Patient Female and 13-50 no hysterectomy : Yes Status : Patient denies Are you ? : No MESSI BECKMAN - 09/15/2014 17:15 CDT Subjective Pain Symptoms : Yes MESSI BECKMAN - 09/15/2014 17:15 CDT Pain Scale Pain Scale Verbal 0-10 : Open MESSI BECKMAN - 09/15/2014 17:15 CDT Pain Pain Assessment Grid Pain 1 Location : Foot Laterality : Left Intensity : 7 Time Pattern : Intermittent Quality : Aching, Sharp Aggravating Factors : Movement MESSI BECKMAN - 09/15/2014 17:15 CDT Dependent Habits Tobacco Use/Currently Using : No Exposure to Tobacco Smoke : Other: Never Smoking Status : Never smoker MESSI BECKMAN - 09/15/2014 17:15 CDT ID Screen Travel Within Last 21 Days : No Contact with someone with Ebola : No MESSI BECKMAN - 09/15/2014 17:15 CDT [facility] Document Id: [id number] CDT!43 documented in this encounter Plan of Treatment Not on filedocumented as of this encounter Procedures Procedure Name Priority Date/Time Associated Diagnosis Comme nts DX FOOT LEFT 3+ Routine 09/15/2014 5:53 PM Result s for this VIEWS CDT procedure are i n the results section. documented in this encounter Results DX Foot Left 3+ Views (09/15/2014 5:53 PM CDT) Anatomical Region Laterality Modality Lower Extremity, Foot Left Radiographic Imagi ng Specimen (Source) Anatomical Collection Method Collection Time Re ceived Time Location / / Volume Laterality 09/15/2014 5:53 PM CDT Impressions 09/16/2014 6:15 AM CDT ??Please see above dictation. Narrative 09/16/2014 6:15 AM CDT EXAM: ??XR Foot Left 3 or more views AGE: ??24 years old. GENDER: ??Female. INDICATION: ??pain at 5th metatarsal, ru nner. COMPARISON: ??None. FINDINGS: ??No appreciable fractures. No rmal alignment. Normal mineralization. If there is high index o f concern for possible stress fracture followup radiographs and/or MRI of the region of clinical interest may be helpful. Procedure Note Stuart Wood M.D. / Provider, Zane multani M.D. - 09/13/2016 EXAM: XR Foot Left 3 or more views AGE: [age] years old. GENDER: Female. INDICATION: pain at 5th metatarsal, runn er. COMPARISON: None. FINDINGS: No appreciable fractures. Norm al alignment. Normal mineralization. If there is high index o f concern for possible stress fracture followup radiographs and/or MRI of the region of clinical interest may be helpful. IMPRESSION: Please see above dictation. Jasmyn Mahajan(R) [facility] [place] DIAGNOSTIC IMAGING PROC EDURES documented in this encounter Visit Diagnoses Not on filedocumented in this encounter
--- OUTSIDE RECORDS SUMMARY | 2021-12-14 01:31 | XMS_ITS | Encounter Summary ---
:1990 Author Organization [facility] Address [address] [place] [address] Care Team Providers Name Role Phone Unavailable Primary Care Provider Unavailable Encounter Details Date Type Department Care Team Description 12/17/2015 Hospital Encounter HX NO MAPPING Chely Gonzalez, LoriASymone [address] [place] [address] HARRY Liu [phone] (Wo rk) Social History Tobacco Use Types [...] week 03/05/2021 How often do you attend druze or druze services? Never 03/05/2021 Do you belong to any clubs or organizations such as druze N o 03/05/2021 groups, unions, fraternal or [...] or slept in a correction (including now)? Sex Assigned at Date Recorded [...] Miscellaneous - Conversion, Historical Provider Ser - 12/17/2015 11:59 PM CDT Coding Summary-Paper Based CODING DATE: 01/07/2016 FINAL [facility] STATUS: * Discharged to Home or Self Care PAYOR: [employer] ADMIT DX: REASON FOR VISIT DX: FINAL DX: PRINCIPAL: Z11.51 Encounter for screening for human papillomavirus (HPV) SECONDARY: PROCEDURES DOCTOR NAME DATE NOTE: The code number assigned matches the documented diagnosis and / or procedure in the patient's chart. However, the narrative phrase printed from the coding software may appear abbreviated, or result in slightly different terminology. Coded By: SILVANO HANNAH Date Saved: 01/07/2016 10:17 am [facility] Document Id: [id number] documented in this encounter Plan of Treatment Not on filedocumented as of this encounter Visit Diagnoses Not on filedocumented in this encounter
--- OUTSIDE RECORDS SUMMARY | 2021-12-14 01:31 | XMS_ITS | Encounter Summary ---
:1990 Author Organization [facility] Address [address] [place] [address] Care Team Providers Name Role Phone Unavailable Primary Care Provider Unavailable Encounter Details Date Type Department Care Team Description 12/24/2015 Hospital Encounter HX [facility] Lillie Gonzalez, P.A. [address] [place] [address] HARRY Liu [phone] (Wo rk) Social History Tobacco Use Types [...] How often do you attend congregational or jain services? Never 03/05/2021 Do you [...] - - Height 173 cm (5' 8.11) 12/24/2015 7:19 AM CDT Body Mass Index - - documented in [...] Name Priority Date/Time Associated Diagnosis Comme nts LIPID PANEL, S Routine 12/24/2015 7:26 AM Results for this CDT procedure are i n the results section. GLUCOSE, FASTING, Routine 12/24/2015 7:26 AM Resu lts for this S/P CDT procedure are i n the results section. documented in this encounter Results (ABNORMAL) Glucose, Fasting (12/24/2015 7:26 AM CDT) P athologist Signature Glucose, 103 (H) 70 - 99 POWERCHART Fasting, S MGDL Specimen (Source) Anatomical Collection Method Collection Time Re ceived Time Location / / Volume Laterality Blood 12/24/2015 7:26 AM CDT Chely Sepulveda LAB BLOOD NON ADD-ON Performing Organization Address City/State/ZIP Code Phon e Number POWERCHART Lipid Panel (12/24/2015 7:26 AM CDT) P athologist Signature Calculated LDL 85 <=129 MGDL POWERCHART Comment: 2014 National Lipid Association recommen dations for LDL-C in adults ages 18 and up: Desirable <100 mg/dL Above desirable 100-129 mg/dL Borderline high 130-159 mg/dL High 160-189 mg/dL Very High 190 mg/dL 2014 National Lipid Association recommen dations for LDL-C in children ages 2 to 17. Acceptable <110 mg/dL Borderline High 110-129mg/dL High 130 mg/dL LDL-C >190mg/dL: The markedly elevated LDL level is suggestive of a genetic condition such as familial hypercholesterolemia(FH) or familial defective apolipoprotein B-100 (FDB). Molecular genetic t esting for FH and FDB is available zia pruett [facility]: FH/ADH Genetic Reflex Barba el (test ADHP). Acquired (non-genetic) causes of markedly increased LDL cholesterol include cholestatic liver disease due to the presence of LpX. If a genetic form of hypercholesterolemia is suspected, family studies including biochemical testing fo r lipids (total cholesterol,triglycerides, LDL cholesterol and HDL cholesterol) are recommended. ??Please contact the laboratory at or the on-line test catalog at [employer] for information about how to order these alex ts or to speak with a genetic counselor. Further interpretation would require clinical information. Total Cholesterol/HDL Ratio 2.04 PO WERCHART Cholesterol, Total 196 <=199 MGDL POWERCHART Comment: 2014 National Lipid Association recommen dations for Total Cholesterol in adults ages 18 and up: Desirable <200 mg/dL Borderline high 200-239 mg/dL High 240 mg/dL 2014 National Lipid Association recommen dations for Total Cholesterol in children ages 2 to 17. Acceptable <170 mg/dL Borderline High 170-199 mg/dL High 200 mg/dL HX HDL 96 >=50 MGDL POWERCHART Comment: 2014 National Lipid Association recommen dations for HDL-C in adults ages 18 and up: Low <40 mg/dL (Men) Low <50 mg/dL (Women) 2014 National Lipid Association recommen dations for HDL-C in children ages 2 to 17. Low <40 mg/dL Borderline Low 40-45 mg/dL Acceptable >45 mg/dL Triglycerides 73 <=149 MGDL POWERCHART Comment: 2014 National Lipid Association recommen dations for Triglycerides in adults ages 18 and up: Normal <150 mg/dL Borderline High 150-199 mg/dL High 200-499 mg/dL Very High 500 mg/dL 2014 National Lipid Association recommen dations for Triglycerides in children ages 2 to 9. Acceptable <75 mg/dL Borderline High 75-99 mg/dL High 100 mg/dL 2014 National Lipid Association recommen dations for Triglycerides in children ages 10 to 17. Acceptable <90 mg/dL Borderline High 90-129 mg/dL High 130 mg/dL Trigs >400mg/dL: Triglycerides >400 mg/ dL. Calculated LDL cholesterol is not valid. Non-HDL cholesterol may be used for risk assessment when triglycerides are >400mg/dL. HXLDL/HDL 1 POWERCHART Specimen (Source) Anatomical Collection Method Collection Time Re ceived Time Location / / Volume Laterality Blood 12/24/2015 7:26 AM CDT Chely Sepulveda LAB BLOOD ADD-ON Performing Organization Address City/State/ZIP Code Phon e Number POWERCHART documented in this encounter Visit Diagnoses Not on filedocumented in this encounter
--- OUTSIDE RECORDS SUMMARY | 2021-12-14 01:31 | XMS_ITS | Encounter Summary ---
:1990 Author Organization [facility] Address [address] [place] [address] Care Team Providers Name Role Phone Unavailable Primary Care Provider Unavailable Encounter Details Date Type Department Care Team Description 07/18/2015 Hospital Encounter [facility]X [facility] Agapito Loja M.D. [address] [place] [address] (Wo angie) Social History Tobacco [...] week 03/05/2021 How often do you attend buddhism or pentecostalism services? Never 03/05/2021 Do you belong to any clubs or organizations such as buddhism N o 03/05/2021 groups, unions, fraternal or [...] Sign Reading Time Taken Comments Blood Pressure 102/70 07/18/2015 11:10 AM CDT Pulse 78 07/18/2015 11:10 AM CDT Temperature - - Respiratory Rate 20 07/18/2015 11:10 AM CDT Oxygen Saturation - - Inhaled Oxygen Concentration - - Weight 57.5 kg (126 lb 12.2 oz) 07/18/2015 11:10 AM CDT Height 173 cm (5' 8.11) 07/18/2015 11:10 AM CDT Body Mass Index 19.21 07/18/2015 11:10 AM CDT documented in this encounter Medications at Time of Discharge Medication Sig Dispensed Refills Start Date End Date magnesium citrate 100 mg Take 300 mL by mouth 0 0 12/04/2014 03/10/2017 tablet as needed. documented as of this encounter Progress Notes Rafiq Boyle - 07/18/2015 11:03 AM CDT [id number] CHIEF COMPLAINT/REASON FOR VISIT I think I have a sinus infection. HISTORY OF PRESENT ILLNESS Patient states that she has been sick for about a week. She has had some headaches, congestion, <__IM_1: blank__> nasal drainage. Denied any wheezing. Denied any shortness of breath. Denied any chills or sweats. The patient is not a smoker. She states that she also has had sore throat which has been getting a little bit worse. VITAL SIGNS Per nursing notes. MEDICATIONS Per nursing notes. ALLERGIES Per nursing notes. PHYSICAL EXAMINATION GENERAL: This is a pleasant 25-year-old female, no appreciable distress, alert, awake, responds appropriately to auditory and visual stimuli. LUNGS: Clear. HEENT: Sinuses are tender to pressure and percussion bilaterally, worse on the right side in the maxillary region. Eyes and ears are normal. Mild posterior pharyngeal erythema. Uvula is midline. NECK: Moderately enlarged, tender anterior cervical nodes. DIAGNOSTICS Rapid strep is negative. IMPRESSION/REPORT/PLAN 1. Acute sinusitis. 2. Unspecified pharyngitis. I am going to start the patient today on treatment, on Augmentin for sinusitis. Recommended heat, Tylenol, Mucinex D was suggested, nonsteroidal anti- inflammatories. Followup consultation was advised in the next couple of days if there is no improvement. Melvi Menard Electronically Signed By: RAFIQ BOYLE V PAC On: 07/27/2015 08:18 PM Source: [facility] MHSDOLBEYNONRADSYS Document Id: [id number] documented in this encounter Procedure Notes Vandana Jones L.PSymoneN. - 07/18/2015 11:22 AM CDT Rapid Strep A Screen POC Rapid Strep A Screen POC Entered On: 07/18/2015 11:24 CDT Performed On: 07/18/2015 11:22 CDT by VANDANA JONES LPN Rapid Strep A Screen POC Rapid Strep A Screen POC : Negative Internal Positive QC : Pass Internal Negative QC : Pass VANDANA JONES LPN - 07/18/2015 11:22 CDT Source: [facility] POWERCHART Document Id: [id number] CDT!5 documented in this encounter Miscellaneous Notes Miscellaneous - Rafiq Boyle - 07/18/2015 11:49 AM CDT Ambulatory Patient Summary [address] [id number] Visit Information Name: CLAUDIA MARTEL [facility] Number: [id number] Current Date: 07/18/2015 11:49:20 Physicians Attending Provider: NELY LOJA MD Primary Care Provider: CHELY RICARDO PA-C CLAUDIA [...] (Ventolin 90 mcg/inh inhalation aerosol with adapter) amoxicillin-clavulanate (Augmentin 875 mg-125 mg oral tablet) 1 Tablet(s), Oral, two times a day x 10 day(s) [place] [facility] [place] [address] [facility] [place] [address] calcium-vitamin D (Calcium 500+D) 1 Tablet(s), as needed magnesium citrate (magnesium citrate) 300 Milliliter, Oral, as needed Restless legs *naproxen (naproxen 500 mg oral tablet) 1 Tablet(s), [...] the Following Medications: Medication list as of 07-18-15 11:49 Attention: If you have any medications at [...] emergency. Electronically Signed By: RAFIQ BOYLE Signed On:18-JUL-2015 11:49:12 Your Allergies & Intolerances Substance Reaction Symptoms [...] Your Upcoming Appointments Date Time Location Provider 07/29/2015 10:15 [facility] Chely Ricardo PA-C Attention: Contact your local Clinic if further [...] form. Youll be asked for your [facility] number which you can find at the top of this document. Your Goals/Additional instructions: Source: [facility] POWERCHART Document Id: [id number] Miscellaneous - Rafiq Boyle - 07/18/2015 11:49 AM CDT Ambulatory Discharge Medication List [facility] [address] [place] [id number] Visit Information Name: TAHMINA JAVEDGRANT LYNCH [facility] Number: [id number] Visit Date: 07/18/2015 11:49:18 Attending Provider: NELY LOJA MD Primary Care Provider: CHELY RICARDO PA-C CLAUDIA [...] (Ventolin 90 mcg/inh inhalation aerosol with adapter) amoxicillin-clavulanate (Augmentin 875 mg-125 mg oral tablet) 1 Tablet(s), Oral, two times a day x 10 day(s) New Routed to [place] [address] [address] [place] [address] calcium-vitamin D (Calcium 500+D) 1 Tablet(s), as needed magnesium citrate (magnesium citrate) 300 Milliliter, Oral, as needed Restless legs *naproxen (naproxen 500 mg oral tablet) 1 Tablet(s), [...] the Following Medications: Medication list as of 07-18-15 11:49 Attention: If you have any medications at [...] of emergency. Electronically Signed By: RAFIQ BOYLE V PAC Signed On:18-JUL-2015 11:49:12 Additional Information: Source: [facility] POWERCHART Document Id: [id number] Miscellaneous - Vandana Jones L.P.N. - 07/18/2015 11:10 AM CDT Adult Complex Care Nurse Practitioner Intake/History Adult Complex Care Nurse Practitioner Intake/History Entered On: 07/18/2015 11:14 CDT Performed On: 07/18/2015 11:10 CDT by VANDANA JONES LPN Intake Chief Complaint : Sinus infection, headache, sneezing, runny nose, congested, under eyes sore, sore throat Onset of Symptoms : 6 days Temperature Oral : 36.5 DegC(Converted to: 97.7 DegF) Peripheral Pulse Rate : 78 /min Respiratory Rate : 20 /min Systolic Blood Pressure : 102 mmHg Diastolic Blood Pressure : 70 mmHg NIBP Mean : 81 mmHg BP Location : Right upper extremity Blood Pressure Cuff Size : Regular Height : 173 cm(Converted to: 5 ft 8 inch(es), 68 inch(es)) Actual Weight : 57.5 kg(Converted to: 126 lb 12 oz) Dosing Weight Clinic : 57.5 kg Clinic BSA : 1.66 Body Mass Index : 19.21 kg/m2 VANDANA JONES LPN - 07/18/2015 11:10 CDT General Info Information Given By : Patient Languages : Senegalese Is Patient Female and 13-50 no hysterectomy : Yes Status : Patient denies Are you ? : No VANDANA JONES LPN - 07/18/2015 11:10 CDT Subjective Pain Symptoms : Yes VANDANA JONES LPN - 07/18/2015 11:10 CDT Pain Scale Pain Scale Verbal 0-10 : Open VANDANA JONES LPN - 07/18/2015 11:10 CDT Pain Pain Assessment Grid Pain 1 Location : Head (Comment: Headache rates 8, sore throat rates 3 [VANDANA JONES LPN - 07/18/201511:10 CDT] ) VANDANA JONES LPN - 07/18/2015 11:10 CDT Dependent Habits Exposure to Tobacco Smoke : Other: Never Smoking Status : Never smoker Tobacco 2A : No Tobacco Use/Currently Using : No Tobacco Use/Last 30 Days : No Tobacco Use/Last 12 months : No VANDANA JONES LPN - 07/18/2015 11:10 CDT [facility] POWERCHART Document Id: [id number] CDT!38 documented in this encounter Plan of Treatment Not on filedocumented as of this encounter Procedures Procedure Name Priority Date/Time Associated Diagnosis Comme nts RAPID STREP A Routine 07/18/2015 12:41 PM Results for this SCREEN CDT procedure are i n the results section. documented in this encounter Results Rapid Strep A Screen (07/18/2015 12:41 PM CDT) [facility] Method Time Signature HXRapid Strep POWERCHART Confirmation HXPre Negative for POWERCHART Group A Strep by culture. HXFinal Negative for POWERCHART Group A Strep by culture. Specimen (Source) Anatomical Collection Method Collection Time Re ceived Time Location / / Volume Laterality Throat 07/18/2015 12:41 PM CDT Historical Provider LAB MICROBIOLOGY - GENERAL O RDERABLES Performing Organization Address City/State/ZIP Code Phon e Number POWERCHART documented in this encounter Visit Diagnoses Not on filedocumented in this encounter
--- OUTSIDE RECORDS SUMMARY | 2021-12-14 01:31 | XMS_ITS | Encounter Summary ---
:1990 Author Organization [facility] Address [address] [place] [address] Care Team Providers Name Role Phone Unavailable Primary Care Provider Unavailable Encounter Details Date Type Department Care Team Description 06/14/2015 Hospital Encounter HX NO MAPPING Chely Gonzalez, LoriASymone [address] [place] [address] HARRY Liu [phone] (Wo rk) Social History Tobacco Use Types [...] How often do you attend shinto or mosque services? Never 03/05/2021 Do you belong to [...] as needed. documented as of this encounter Miscellaneous Notes Miscellaneous - Conversion, Historical Provider Ser - 06/14/2015 11:59 PM DIGITAL COLOR PRESS OPERATOR Coding Summary-Paper Based CODING DATE: 06/18/2015 FINAL [facility] STATUS: * Discharged to Home or Self Care PAYOR: [employer] ADMIT DX: REASON FOR VISIT DX: FINAL DX: PRINCIPAL: D23.5 Other benign neoplasm of skin of trunk SECONDARY: PROCEDURES DOCTOR NAME DATE NOTE: The code number assigned matches the documented diagnosis and / or procedure in the patient's chart. However, the narrative phrase printed from the coding software may appear abbreviated, or result in slightly different terminology. Coded By: SILVANO HANNAH Date Saved: 06/18/2015 03:03 pm Source: [facility] POWERCHART Document Id: [id number] documented in this encounter Plan of Treatment Not on filedocumented as of this encounter Visit Diagnoses Not on filedocumented in this encounter
--- OUTSIDE RECORDS SUMMARY | 2021-12-14 01:31 | XMS_ITS | Encounter Summary ---
:1990 Author Organization [facility] Address [address] [place] [address] Care Team Providers Name Role Phone Unavailable Primary Care Provider Unavailable Encounter Details Date Type Department Care Team Description 05/01/2014 Hospital Encounter [facility]X [facility] Rafiq Boyle, P.A. -C. [address] [facility] [place] [address] (Wo rk) Social History Tobacco [...] How often do you attend denominational or catholic services? Never 03/05/2021 Do you [...] Sign Reading Time Taken Comments Blood Pressure 112/50 05/01/2014 5:35 PM PERSHING MISSILE CREWMEMBER Pulse 88 05/01/2014 5:35 PM PERSHING MISSILE CREWMEMBER Temperature - - Respiratory Rate 16 05/01/2014 5:35 PM PERSHING MISSILE CREWMEMBER Oxygen Saturation - - Inhaled Oxygen Concentration - - Weight 55 kg (121 lb 4.1 oz) 05/01/2014 5:35 PM PERSHING MISSILE CREWMEMBER Height 173 cm (5' 8.11) 05/01/2014 5:35 PM PERSHING MISSILE CREWMEMBER Body Mass Index 18.38 05/01/2014 5:35 PM PERSHING MISSILE CREWMEMBER documented in this encounter Progress Notes Rafiq Boyle - 05/01/2014 4:45 PM CST [id number] CHIEF COMPLAINT/REASON FOR VISIT Sore throat. Fever. HISTORY OF PRESENT ILLNESS Patient states that she has had some cold symptoms in the past 4 to 5 days, but today she presented with fever and body aches. She has had some runny nose. She denied any wheezing, any shortness of breath. She has had some mild fatigue. MEDICATIONS Please refer to EMR. ALLERGIES Please refer to EMR. PHYSICAL EXAMINATION GENERAL: Pleasant 24-year-old female, in no appreciable distress. Does appear to be mildly ill however. LUNGS: Clear to auscultation. No wheezes, no rales, no rhonchi. HEENT: Mild nasal mucosal edema. Scant clear drainage. Eyes and ears normal. Sinuses not appreciablytender. IMPRESSION/REPORT/PLAN Likely influenza. PLAN: I did discuss with the patient that her trip to [facility] today would not be desirable, but patient states regardless whether I tested for flu or not, she is still going. We did make a decision to treat her today. We started her on Tamiflu. Did recommend fluids and rest, cough suppressants. I did strongly encourage her to wear mask while she is in the airport and especially on the plane. Tylenol was advised for fever control. Cough suppressants were strongly recommended. Patient will be rechecked on the resorts in [facility]. If her symptoms get worse, I did discuss with her potential complications and side effects of medication. She is comfortable with this plan. I did answer all the questions. Rafiq Boyle P.A.-C/shaneka Electronically Signed By: RAFIQ BOYLE On: 05/11/2014 03:59 PM Source: [facility] MHSDOLBEYNONRADSYS Document Id: [id number] HING MISSILE CREWMEMBER documented in this encounter Procedure Notes Messi Beckman R.N. - 05/01/2014 5:47 PM CST Rapid Strep A Screen POC Rapid Strep A Screen POC Entered On: 05/01/2014 17:47 PERSHING MISSILE CREWMEMBER Performed On: 05/01/2014 17:47 PERSHING MISSILE CREWMEMBER by MESSI BECKMAN Rapid Strep A Screen POC Rapid Strep A Screen POC : Negative Internal Positive QC : Pass MESSI BECKMAN - 05/01/2014 17:47 PERSHING MISSILE CREWMEMBER Source: [facility] POWERCHART Document Id: [id number] PERSHING MISSILE CREWMEMBER!4 HING MISSILE CREWMEMBER documented in this encounter Miscellaneous Notes Miscellaneous - Rafiq Boyle - 05/01/2014 6:48 PM CST Ambulatory Patient Summary [facility] [address] [place], [place] [phone] Visit Information Name: CLAUDIA MARTEL [facility] Number: [id number] Current Date: 05/01/2014 18:48:52 Physicians Attending Provider: RAFIQ BOYLE Primary Care Provider: RIRI JAMES CASE RESOURCE MANAGER CLAUDIA MARTEL has been given the [...] (Ventolin 90 mcg/inh inhalation aerosol with adapter) norgestimate-ethinyl estradiol (TriNessa oral tablet) 1 Tablet(s), Oral, once a day oseltamivir (Tamiflu 75 mg oral capsule) 1 cap, Oral, two times a day x 5 day(s) New Routed to [place] [address] [place] [id number] Stop Taking the Following Medications: Medication list as of 05-01-14 18:48 Attention: If you have any medications [...] emergency. 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 Your Goals/Additional instructions: Source: [facility] POWERCHART Document Id: [id number] HING MISSILE CREWMEMBER Miscellaneous - Rafiq Boyle - 05/01/2014 6:48 PM CST Ambulatory Discharge Medication List [facility] [address] [place], [place] [id number] Visit Information Name: CLAUDIA MARTEL [facility] Number: [id number] Visit Date: 05/01/2014 18:48:51 Attending Provider: RAFIQ BOYLE Primary Care Provider: RIRI JAMES CASE RESOURCE MANAGER CLAUDIA MARTEL has been given the [...] (Ventolin 90 mcg/inh inhalation aerosol with adapter) norgestimate-ethinyl estradiol (TriNessa oral tablet) 1 Tablet(s), Oral, once a day oseltamivir (Tamiflu 75 mg oral capsule) 1 cap, Oral, two times a day x 5 day(s) New Rout[facility] [address] [place] [place] [id number] Stop Taking the Following Medications: Medication list as of 05-01-14 18:48 Attention: If you have any medications [...] emergency. Electronically Signed By: RAFIQ BOYLE Signed On:01-MAY-2014 18:48:48 Additional Information: Source: [facility] POWERCHART Document Id: [id number] HING MISSILE CREWMEMBER Miscellaneous - Messi Beckman R.N. - 05/01/2014 5:35 PM CST Adult Bank Compliance Officer Intake/History Adult Bank Compliance Officer Intake/History Entered On: 05/01/2014 17:37 PERSHING MISSILE CREWMEMBER Performed On: 05/01/2014 17:35 PERSHING MISSILE CREWMEMBER by MESSI BECKMAN Intake Chief Complaint : sore throat, cough, fever, chest discomfort Onset of Symptoms : 5 days Temperature Oral : 37.3 DegC(Converted to: 99.1 DegF) Peripheral Pulse Rate : 88 /min Respiratory Rate : 16 /min Systolic Blood Pressure : 112 mmHg Diastolic Blood Pressure : 50 mmHg (LOW) NIBP Mean : 71 mmHg BP Location : Right upper extremity Blood Pressure Cuff Size : Regular Height : 173 cm(Converted to: 5 ft 8 inch(es), 68 inch(es)) Actual Weight : 55.0 kg(Converted to: 121 lb 4 oz) Weight Source : Standing scale Dosing Weight Clinic : 55 kg Clinic BSA : 1.63 Body Mass Index : 18.38 kg/m2 MESSI BECKMAN - 05/01/2014 17:35 PERSHING MISSILE CREWMEMBER General Info Information Given By : Patient Languages : Georgian Is Patient Female and 13-50 no hysterectomy : Yes Status : Patient denies Are you ? : No MESSI BECKMAN - 05/01/2014 17:35 PERSHING MISSILE CREWMEMBER Subjective Pain Symptoms : No Respiratory Symptoms : Cough Mouth and Throat Symptoms : Sore throat MESSI BECKMAN - 05/01/2014 17:35 PERSHING MISSILE CREWMEMBER Dependent Habits Tobacco Use/Currently Using : No Exposure to Tobacco Smoke : Other: Never Smoking Status : Never smoker MESSI BECKMAN - 05/01/2014 17:35 PERSHING MISSILE CREWMEMBER ID Screen Travel Within Last 21 Days : No MESSI BECKMAN - 05/01/2014 17:35 PERSHING MISSILE CREWMEMBER [facility] POWERCHART Document Id: [id number] PERSHING MISSILE CREWMEMBER!34 HING MISSILE CREWMEMBER documented in this encounter Plan of Treatment Not on filedocumented as of this encounter Procedures Procedure Name Priority Date/Time Associated Diagnosis Comme nts RAPID STREP A Routine 05/01/2014 5:55 PM Results for this SCREEN PERSHING MISSILE CREWMEMBER procedure are i n the results section. documented in this encounter Results Rapid Strep A Screen (05/01/2014 5:55 PM PERSHING MISSILE CREWMEMBER) [facility] gist Method Time Signature HXRapid Strep POWERCHART Confirmation HXFinal Negative for POWERCHART Group A Strep by culture. Specimen (Source) Anatomical Collection Method Collection Time Re ceived Time Location / / Volume Laterality Throat 05/01/2014 5:55 PM PERSHING MISSILE CREWMEMBER Historical Provider LAB MICROBIOLOGY - GENERAL O RDERABLES Performing Organization Address City/State/ZIP Code Phon e Number POWERCHART documented in this encounter Visit Diagnoses Not on filedocumented in this encounter
--- OUTSIDE RECORDS SUMMARY | 2021-12-14 01:31 | XMS_ITS | Encounter Summary ---
:1990 Author Organization [facility] Address [address] [place] [address] Care Team Providers Name Role Phone Unavailable Primary Care Provider Unavailable Encounter Details Date Type Department Care Team Description 12/04/2014 Hospital Encounter HX [facility] Jennifer Conrad M.D. [address] [facility], [place] [address] (Wo rk) Social History Tobacco Use Types [...] week 03/05/2021 How often do you attend faith or spiritism services? Never 03/05/2021 Do you belong to any clubs or organizations such as faith N o 03/05/2021 groups, unions, fraternal or [...] - - Height 173 cm (5' 8.11) 12/04/2014 9:59 AM CDT Body Mass Index - - documented in this encounter Medications at Time of Discharge Medication Sig Dispensed Refills Start Date End Date magnesium citrate 100 mg Take 300 mL by mouth 0 0 12/04/2014 03/10/2017 tablet as needed. documented as of this encounter Progress Notes Krysten Conrad M.D. - 12/04/2014 9:48 AM CDT [id number] CHIEF COMPLAINT/REASON FOR VISIT Itching eyelids. HISTORY OF PRESENT ILLNESS This 24-year-old female is here with concerns of itching along the eyelid margin especially on her right eye but sometimes on the left eye. She states that the upper eyelid gets very itchy to where shetakes her fingernail and scratches along the eyelashes and then sometimes it gets swollen after that. She saw Ophthalmology who gave her TobraDex to apply but she used it for 7 days and did not see anydifference and so stopped it. She says she has had this once before in 2013 when she lived in [place]. She tried some hydrocortisone cream on it which really did not help. Finally it just went away. She has tried changing her diet, using different hair products and makeup and nothing seems to changethe course of this itching. She did have eczema when she was younger and occasionally gets red itchy spots on her lower legs which she attributes to shaving. MEDICATIONS Please see medication list in [facility] EMR updated today. ALLERGIES Please see allergy list in [employer] EMR updated today. SYSTEMS REVIEW Please see pertinent positives listed in HPI. Otherwise rest of systems review is negative. PAST MEDICAL/SURGICAL HISTORY Reviewed per EMR. Skin history as reviewed in HPI. 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 Does not smoke or drink alcohol. FAMILY HISTORY Family history of eczema and asthma. Negative for psoriasis, acne, skin cancer, hayfever. PHYSICAL EXAMINATION GENERAL: Alert and oriented x3 in no acute distress. Pleasant demeanor. Well groomed. SKIN: Exam of the face shows type 1 skin with mild photodamage. No erythema or scaling on the upper or lower eyelids. She does show me where it itches along the eyelash margin and I do not see any flaking, erythema or papule formation here even under dermoscopy. On her lower legs there are a few smallinflammatory papules which could be a result of shaving or could be some mild papular eczema. DIAGNOSTICS Medical records from previous visits were reviewed. Pertinent lab results were examined. Verbal consent for any photos was obtained. IMPRESSION/REPORT/PLAN Pruritus of eyelid margins. PLAN: She will begin Elidel cream 2 times a day to see if this helps give her relief. It told her tocontinue using it for 1 month before she decides if it is working or not. We also talked about keeping hairspray off of her eyelids. I told her I do not think her diet is going to make much difference here. She will call if it is not improving. Krysten Conrad M.D./shaneka Electronically Signed By: KRYSTEN CONRAD MD On: 12/16/2014 09:40 AM Source: [facility] MHSDOLBEYNONRADSYS Document Id: [id number] documented in this encounter Miscellaneous Notes Miscellaneous - Codey Abdalla L.P.NSymone - 12/18/2014 11:36 AM CDT *General Message Document Contains Addenda Addendum by AVILA SWAN on 21 December 2014 10:13:55 CDT Called patient and she stated she contacted Kaela and got her rx. Addendum by KRYSTEN CONRAD MD on 21 December 2014 09:17:36 CDT From: KRYSTEN CONRAD MD To: Dermatology Nurse; Sent: 12/21/2014 09:17:36 CDT Subject: RE: *General Message Was this ordered through irmat/philidor? If not, give that a try. From: CODEY ABDALLA ( Dermatology Nurse) To: KRYSTEN CONRAD MD; Sent: 12/18/2014 11:36:01 CDT Subject: *General Message Patient 's Elidel Cream, for itchy eyelids was denied by insurance. Is this medication for short term use? Med is denied. Any alternatives? Source: [facility] PlaytestCloud Document Id: [id number] Electronically signed by Conversion, [facility] Middleware Systems Architect [id number] at 10/01/2016 10:42 PM CDT Miscellaneous - Codey Abdalla, L.P.N. - 12/15/2014 2:36 PM CDT *General Message From: CODEY ABDALLA ( Dermatology Nurse) Sent: 12/15/2014 14:36:17 CDT Subject: *General Message Prior authorization submitted to [facility] for Elidel. Answer will be received by fax within 24 to 72 hours. [facility]: [facility] Document Id: [id number] Electronically signed by Conversion, [facility] Middleware Systems Architect [id number] at 10/01/2016 10:42 PM CDT Miscellaneous - Krysten Conrad M.D. - 12/04/2014 4:44 PM CDT Ambulatory Patient Summary [facility] [address] [place] [id number] Visit Information Name: CLAUDIA MARTEL [facility] Number: [id number] Current Date: 12/04/2014 16:44:14 Physicians Attending Provider: KRYSTEN CONRAD MD Primary Care Provider: RIRI JAMES SQL ARCHITECT CLAUDIA MARTEL has been given the following [...] (Ventolin 90 mcg/inh inhalation aerosol with adapter) calcium-vitamin D (Calcium 500+D) 1 Tablet(s), as needed magnesium citrate (magnesium citrate) 300 Milliliter, Oral, as needed Restless legs naproxen (naproxen 500 mg oral tablet) 1 Tablet(s), Oral, two times a day norgestimate-ethinyl estradiol (TriNessa oral tablet) 1 Tablet(s), Oral, once a day pimecrolimus topical (Elidel 1% topical cream) 1 mery, Topical, two times a day Routed to [facility] , Stop Taking the Following Medications: Medication list as of 12-04-14 16:44 Attention: If you have any medications at home that are not on this list, DO NOT take them until youcontact your provider for clarification. Give a copy of your medication list to your primary care provider. Update your medication list any time medications or doses are changed and carry your medication list at all times in case of emergency. Electronically Signed By: KRYSTEN CONRAD MD Signed On:04-DEC-2014 16:44:07 Your Allergies & Intolerances Substance Reaction Symptoms [...] Your Upcoming Appointments Date Time Location Provider 12/31/2014 09:30 ELIO Carrera MD, Antonio Romero Attention: Contact your local Clinic if further [...] if you dont have one. Go to [email or web address] and click on Create Your Account. Then, follow the directions to complete the online form. Youll be asked for your [facility] number which you can find at the top of this document. Your Goals/Additional instructions: Source: [facility] POWERCHART Document Id: [id number] Miscellaneous - Krysten Conrad M.D. - 12/04/2014 4:44 PM CDT Ambulatory Discharge Medication List [address] [id number] Visit Information Name: CLAUDIA MARTEL [facility] Number: [id number] Visit Date: 12/04/2014 16:44:12 Attending Provider: KRYSTEN CONRAD MD Primary Care Provider: RIRI JAMES CNP CLAUDIA MARTEL has been given the [...] (Ventolin 90 mcg/inh inhalation aerosol with adapter) calcium-vitamin D (Calcium 500+D) 1 Tablet(s), as needed magnesium citrate (magnesium citrate) 300 Milliliter, Oral, as needed Restless legs naproxen (naproxen 500 mg oral tablet) 1 Tablet(s), Oral, two times a day norgestimate-ethinyl estradiol (TriNessa oral tablet) 1 Tablet(s), Oral, once a day pimecrolimus topical (Elidel 1% topical cream) 1 mery, Topical, two times a day Routed to [facility] , Stop Taking the Following Medications: Medication list as of 12-04-14 16:44 Attention: If you have any medications at home that are not on this list, DO NOT take them until youcontact your provider for clarification. Give a copy of your medication list to your primary care provider. Update your medication list any time medications or doses are changed and carry your medication list at all times in case of emergency. Electronically Signed By: KRYSTEN CONRAD MD Signed On:04-DEC-2014 16:44:07 Additional Information: Source: [facility] PlaytestCloud Document Id: [id number] Miscellaneous - Alondra Bell, R.M.A. - 12/04/2014 9:59 AM CDT Adult Professional Services Manager Intake/History Adult Professional Services Manager Intake/History Entered On: 12/04/2014 10:00 CDT Performed On: 12/04/2014 9:59 CDT by ALONDRA BELL Intake Chief Complaint : Itchy eyelashes Height : 173 cm(Converted to: 5 ft 8 inch(es), 68 inch(es)) ALONDRA BELL - 12/04/2014 9:59 CDT General Info Information Given By : Patient Languages : Estonian Is Patient Female and 13-50 no hysterectomy : Yes Status : Patient denies Are you ? : No ALONDRA BELL - 12/04/2014 9:59 CDT Subjective Pain Symptoms : No ALONDRA BELL - 12/04/2014 9:59 CDT Dependent Habits Tobacco Use/Currently Using : No Exposure to Tobacco Smoke : Other: Never Smoking Status : Never smoker ALONDRA BELL - 12/04/2014 9:59 CDT Source: [facility] PlaytestCloud Document Id: [id number] CDT!16 documented in this encounter Plan of Treatment Not on filedocumented as of this encounter Visit Diagnoses Not on filedocumented in this encounter
--- OUTSIDE RECORDS SUMMARY | 2021-12-14 01:31 | XMS_ITS | Encounter Summary ---
:1990 Author Organization [facility] Address [address] [place] [address] Care Team Providers Name Role Phone Unavailable Primary Care Provider Unavailable Encounter Details Date Type Department Care Team Description 04/17/2015 Hospital Encounter HX [facility] Rafiq Boyle, P.A. -C. [address] [facility] [place] [address] (Wo rk) Social History Tobacco [...] How often do you attend mormonism or shinto services? Never 03/05/2021 Do you [...] place to sleep or slept in a [facility] (including now)? Sex Assigned at Date Recorded Female 01/16/2018 3:45 PM CDT documented as of this encounter Last Filed Vital Signs Vital Sign Reading Time Taken Comments Blood Pressure 112/72 04/17/2015 4:35 PM DISTRIBUTION TRANSFORMER ASSEMBLER Pulse 58 04/17/2015 4:35 PM DISTRIBUTION TRANSFORMER ASSEMBLER Temperature - - Respiratory Rate 18 04/17/2015 4:35 PM DISTRIBUTION TRANSFORMER ASSEMBLER Oxygen Saturation - - Inhaled Oxygen Concentration - - Weight 56.7 kg (125 lb) 04/17/2015 4:35 PM DISTRIBUTION TRANSFORMER ASSEMBLER Height 173 cm (5' 8.11) 04/17/2015 4:30 PM DISTRIBUTION TRANSFORMER ASSEMBLER Body Mass Index 18.94 04/17/2015 4:30 PM DISTRIBUTION TRANSFORMER ASSEMBLER documented in this encounter Medications at Time of Discharge Medication Sig Dispensed Refills Start Date End Date magnesium citrate 100 mg Take 300 mL by mouth 0 0 12/04/2014 03/10/2017 tablet as needed. documented as of this encounter Progress Notes Rafiq Boyle - 04/17/2015 4:29 PM CST [id number] CHIEF COMPLAINT/REASON FOR VISIT Sore throat, headaches. HISTORY OF PRESENT ILLNESS Patient states that the past 2 to 3 days she has had sore throat. She has had some intermittent congestion in the past few weeks. She feels like there is something draining in the back of the throat that she would have to intermittently cough up but she denies any wheezing or any shortness of breath. She denied any other specific concerns or problems. 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 VITAL SIGNS Per nursing notes. MEDICATIONS Per nursing notes. ALLERGIES Per nursing notes. PHYSICAL EXAMINATION GENERAL: This is a pleasant 25-year-old female in no appreciable distress. Alert and awake, respondsappropriately to auditory and visual stimuli. LUNGS: Appear to be clear to auscultation. No wheezes, no rales. No rhonchi. HEENT: Sinuses appear to be tender, slightly tender to pressure and percussion in the maxillary region. Mild nasal mucosal edema with scant purulent drainage also noted. Eyes and ears are normal. Mild posterior pharyngeal erythema noted. NECK: No significant cervical lymphadenopathy noted. LUNGS: Clear. DIAGNOSTICS Rapid strep is negative. IMPRESSION/REPORT/PLAN 1. Acute pharyngitis. 2. Unspecified sinusitis. PLAN: We encouraged patient to continue with [id number] medications. Suggested Mucinex DM, ibuprofen, salt water gargles, lozenges, cold food, soft foods. I did suggest starting the antibiotic treatment if there is no progressive improvement in the next couple of days. Augmentin was prescribed, denise hawthorne to her in the paper form. She will follow up if there is no improvement after the initiation ofthe antibiotic as well. Questions were answered. They are comfortable with this plan. Rafiq Boyle P.A.-C/shaneka Electronically Signed By: RAFIQ BOYLE V PAC On: 04/23/2015 12:59 PM Source: [facility] MHSDOLBEYNONRADSYS Document Id: [id number] RIBUTION TRANSFORMER ASSEMBLER documented in this encounter Procedure Notes Valentina Amaro L.P.N. - 04/17/2015 4:47 PM CST Rapid Strep A Screen POC Rapid Strep A Screen POC Entered On: 04/17/2015 16:47 DISTRIBUTION TRANSFORMER ASSEMBLER Performed On: 04/17/2015 16:47 DISTRIBUTION TRANSFORMER ASSEMBLER by VALENTINA AMARO LPN Rapid Strep A Screen POC Rapid Strep A Screen POC : Negative VALENTINA AMARO LPN - 04/17/2015 16:47 DISTRIBUTION TRANSFORMER ASSEMBLER Source: [facility] POWERCHART Document Id: [id number] DISTRIBUTION TRANSFORMER ASSEMBLER!3 RIBUTION TRANSFORMER ASSEMBLER documented in this encounter Miscellaneous Notes Telephone Encounter - Conversion, Historical Provider Ser - 12/10/2015 9:23 AM CDT *Phone Message- Dr. Carrera Document Contains Addenda Addendum by PAUL BEST LPN on December 10, 2015 14:22:59 CDT Phoned patient. Informed her that Elidel was filled at [facility] pharmacy. She is needing refill of Elidel. Explained that Dr. Lulu Conrad is no longer here. Offered to give her phone number of Dr. Lulu Conrad to schedule appt., or she may ask her PCP for refill. She may also schedule appt. here in dermfor refill. From: EMILY MATTHEW To: Dermatology Nurse; Sent: 12/10/2015 09:23:34 CDT Subject: *Phone Message- Dr. Carrera Caller is: ( x) Patient ( ) Mother ( ) Father ( ) Spouse ( ) Daughter ( ) Son ( ) Pharmacy ( ) Other: Physician: Dr. Carrera Patient MRN #: Reason for Call: Message: S: Pt called clinic to talk to nurse B: would like to talk to nurse about refill, former [facility] patient, does not know pharmacy where med wasat A: R: Please call pt at [phone] Advice/Action: Source used: ( ) Verbalizes understanding [...] back cell phone number ( ) Source: [facility] POWERCHART Document Id: [id number] Miscellaneous - Rafiq Boyle - 04/17/2015 4:59 PM CST Ambulatory Patient Summary [facility] [address] [place], [place] [id number] Visit Information Name: CLAUDIA MARTEL [facility] Number: [id number] Current Date: 04/17/2015 16:59:25 Physicians Attending Provider: RAFIQ BOYLE Primary Care Provider: PCP, CLAUDIA FRANCIS has been given the following list of [...] day x 10 day(s) New Routed to Printer calcium-vitamin D (Calcium 500+D) 1 Tablet(s), as [...] the Following Medications: Medication list as of 04-17-15 16:59 Attention: If you have any medications at [...] emergency. Electronically Signed By: RAFIQ BOYLE Signed On:17-APR-2015 16:59:16 Your Allergies & Intolerances Substance Reaction Symptoms [...] 19 Adult Active Dermatitis Eyelid NOS Active Your Upcoming Appointments Date Time Location Provider 04/23/2015 15:30 ELIO Carrera MD, Antonio Romero Attention: Contact [...] if you dont have one. Go to [email or web address] and click on Create Your Account. Then, follow the directions to complete the online form. Youll be asked for your [facility] number which you can find at the top of this document. Your Goals/Additional instructions: Source: [facility] POWERCHART Document Id: [id number] RIBUTION TRANSFORMER ASSEMBLER Miscellaneous - Rafiq Boyle - 04/17/2015 4:59 PM CST Ambulatory Discharge Medication List [address] [id number] Visit Information Name: CLAUDIA MARTEL [facility] Number: [id number] Visit Date: 04/17/2015 16:59:22 Attending Provider: RAFIQ BOYLE V PAC Primary Care Provider: PCP, ELSEWHERE ALFONSO MARTELStefani LYNCH has been given the following list of [...] day x 10 day(s) New Routed to Printer calcium-vitamin D (Calcium 500+D) 1 Tablet(s), as [...] the Following Medications: Medication list as of 04-17-15 16:59 Attention: If you have any medications at [...] Signed By: RAFIQ BOYLE V PAC Signed On:17-APR-2015 16:59:16 Additional Information: Source: [facility] POWERCHART Document Id: [id number] RIBUTION TRANSFORMER ASSEMBLER Miscellaneous - Latonya Ohara, R.N. - 04/17/2015 4:35 PM CST Adult Manager Lean Intake/History Document Has Been Updated Adult Manager Lean Intake/History Entered On: 04/17/2015 16:37 DISTRIBUTION TRANSFORMER ASSEMBLER Performed On: 04/17/2015 16:35 DISTRIBUTION TRANSFORMER ASSEMBLER by LATONYA OHARA LPN Intake Chief Complaint : sore throat Onset of Symptoms : three days Temperature Oral : 36.6 DegC(Converted to: 97.9 DegF) Peripheral Pulse Rate : 58 /min (LOW) Respiratory Rate : 18 /min Heart Rhythm : Regular Systolic Blood Pressure : 112 mmHg Diastolic Blood Pressure : 72 mmHg NIBP Mean : 85 mmHg BP Location : Right upper extremity Blood Pressure Cuff Size : Large Actual Weight : 56.7 kg(Converted to: 125 lb 0 oz) Weight Source : Standing scale Dosing Weight Clinic : 56.7 kg LATONYA OHARA [facility] - 04/17/2015 16:35 DISTRIBUTION TRANSFORMER ASSEMBLER General Info Information Given By : Patient Preferred Communication Mode : Verbal Languages : Yoruba Is Patient Female and 13-50 no hysterectomy : Yes Status : Patient denies Are you ? : No LATONYA OHARA [facility] - 04/17/2015 16:35 DISTRIBUTION TRANSFORMER ASSEMBLER Subjective Pain Symptoms : No JANINEMICHOACANO ADAMSIANFLETCHER Harvey [facility] - 04/17/2015 16:35 DISTRIBUTION TRANSFORMER ASSEMBLER Dependent Habits Exposure to Tobacco Smoke : Other: Never Smoking Status : Never smoker Tobacco 2A : No LATONYA OHARA Candice [facility] - 04/17/2015 16:35 DISTRIBUTION TRANSFORMER ASSEMBLER Allergy (As Of: 04/17/2015 16:37:20 DISTRIBUTION TRANSFORMER ASSEMBLER) Allergies (Active) Zithromax Z-Juan Estimated Onset Date: Unspecified ; Reactions: rash ; Created By: JOSE A JORGENSEN MD; Reaction Status: Active ; Category: Drug ; Substance: Zithromax Z-Juan ; Type: Allergy ; Updated By: JOSE A JORGENSEN MD; Reviewed Date: 04/17/2015 16:35 DISTRIBUTION TRANSFORMER ASSEMBLER Source: [facility] POWERCHART Document Id: [id number] DISTRIBUTION TRANSFORMER ASSEMBLER!29 RIBUTION TRANSFORMER ASSEMBLER documented in this encounter Plan of Treatment Not on filedocumented as of this encounter Procedures Procedure Name Priority Date/Time Associated Diagnosis Comme nts RAPID STREP A Routine 04/17/2015 5:56 PM Results for this SCREEN DISTRIBUTION TRANSFORMER ASSEMBLER procedure are i n the results section. documented in this encounter Results Rapid Strep A Screen (04/17/2015 5:56 PM DISTRIBUTION TRANSFORMER ASSEMBLER) [facility] Method Time Signature HXRapid Strep POWERCHART Confirmation HXPre Negative for POWERCHART Group A Strep by culture. HXFinal Negative for POWERCHART Group A Strep by culture. Specimen (Source) Anatomical Collection Method Collection Time Re ceived Time Location / / Volume Laterality Throat 04/17/2015 5:56 PM DISTRIBUTION TRANSFORMER ASSEMBLER Historical Provider LAB MICROBIOLOGY - GENERAL O RDERABLES Performing Organization Address City/State/ZIP Code Phon e Number POWERCHART documented in this encounter Visit Diagnoses Not on filedocumented in this encounter
--- OUTSIDE RECORDS SUMMARY | 2021-12-14 01:31 | XMS_ITS | Encounter Summary ---
:1990 Author Organization [facility] Address [address] [place] [address] Care Team Providers Name Role Phone Unavailable Primary Care Provider Unavailable Encounter Details Date Type Department Care Team Description 01/24/2016 Hospital Encounter HX NO MAPPING Yani Denis [...] week 03/05/2021 How often do you attend jehovah's witness or zoroastrianism services? Never 03/05/2021 Do you belong to any clubs or organizations such as jehovah's witness N o 03/05/2021 groups, unions, fraternal or [...] Miscellaneous - Conversion, Historical Provider Ser - 01/24/2016 11:59 PM CDT Coding Summary-Paper Based CODING DATE: 01/31/2016 FINAL [facility] STATUS: * Discharged to Home or Self Care PAYOR: [employer] ADMIT DX: REASON FOR VISIT DX: FINAL DX: PRINCIPAL: R87.619 Unspecified abnormal cytological findings in specimens from cervix uteri SECONDARY: PROCEDURES DOCTOR NAME DATE NOTE: The code number assigned matches the documented diagnosis and / or procedure in the patient's chart. However, the narrative phrase printed from the coding software may appear abbreviated, or result in slightly different terminology. Coded By: SILVANO HANNAH Date Saved: 01/31/2016 12:21 pm Source: [facility] Xecced Document Id: [id number] documented in this encounter Plan of Treatment Not on filedocumented as of this encounter Visit Diagnoses Not on filedocumented in this encounter
--- OUTSIDE RECORDS SUMMARY | 2021-12-14 01:31 | XMS_ITS | Encounter Summary ---
:1990 Author Organization [facility] Address [address] [place] [address] Care Team Providers Name Role Phone Unavailable Primary Care Provider Unavailable Encounter Details Date Type Department Care Team Description 02/04/2016 Hospital En[facility] Rafiq Boyle, P.A. -C. [address] [place] [address] (Wo rk) Social History Tobacco [...] How often do you attend anabaptism or caodaism services? Never 03/05/2021 Do you [...] Sign Reading Time Taken Comments Blood Pressure 104/62 02/04/2016 3:58 PM CDT Pulse 66 02/04/2016 3:58 PM CDT Temperature - - Respiratory Rate 14 02/04/2016 3:58 PM CDT Oxygen Saturation - - Inhaled Oxygen Concentration - - Weight 55.1 kg (121 lb 7.6 oz) 02/04/2016 3:58 PM CDT Height 173 cm (5' 8.11) 02/04/2016 3:58 PM CDT Body Mass Index 18.41 02/04/2016 3:58 PM CDT documented in this encounter Medications [...] this encounter Progress Notes Rafiq Boyle - 02/04/2016 3:20 PM CDT [id number] CHIEF COMPLAINT/REASON FOR VISIT Congestion and headaches. HISTORY OF PRESENT ILLNESS Patient states that she has had sinus headaches and congestion which have been going on for the pastweek. She has had some purulent nasal drainage mixed with clear drainage. She has had some sore throat, cough. She feels like the headache is worse on the left side. No other specific concerns or problems were reported to me today. VITAL SIGNS Per nursing notes. MEDICATIONS Per nursing notes. ALLERGIES Per nursing notes. PHYSICAL EXAMINATION GENERAL: Pleasant 26-year-old female, in no appreciable distress. Alert, awake, responds appropriately to auditory and visual stimuli. LUNGS: Clear. HEENT: Sinuses are tender to percussion bilaterally, worse on the left side. Moderate nasal mucosal edema. Some moderate purulent drainage. Eyes and ears appear to be normal. SKIN: Normal. No rash. IMPRESSION/REPORT/PLAN Acute sinusitis. PLAN: We are treating the patient today with Augmentin. Recommended fluids, rest. Recheck with the primary care provider in next couple of days if there is no progressive improvement. Melvi Menard Electronically Signed By: RAFIQ BOYLE On: 02/12/2016 04:03 PM Source: [facility] MHSDOLBEYNONRADSYS Document Id: [id number] documented in this encounter Miscellaneous Notes Miscellaneous - Rafiq Boyle - 02/04/2016 4:25 PM CDT Ambulatory Patient Summary [address] [id number] Visit Information Name: TAHMINACLAUDIA SYED [facility] Number: [id number] Current Date: 02/04/2016 16:25:41 Physicians Attending Provider: RAFIQ BOYLE Primary Care Provider: SIMI RICARDO PA-C CLAUDIA [...] day x 10 day(s) New Routed to [facility] [address] [place], [place] [phone] calcium-vitamin D (Calcium 500+D) 1 Tablet(s), as [...] the Following Medications: Medication list as of 02-04-16 16:25 Attention: If you have any medications at [...] emergency. Electronically Signed By: RAFIQ BOYLE Signed On:04-FEB-2016 16:25:30 Your Allergies & Intolerances Substance Reaction Symptoms [...] local Clinic if further appointment detail needed. Acute Sinusitis Acute sinusitis is inflammation (irritation and swelling) of the sinuses. It is often due to a bacterial or viral infection of the sinuses. This may follow a cold or other upper respiratory illness. Your doctor can help you find relief. Read on to learn more. What Is Acute Sinusitis? Sinuses are air-filled spaces in the skull behind the face. They are kept moist and clean by a lining of mucosa. Things such as pollen, smoke, and chemical fumes can irritate the mucosa. It can then become inflamed (swell up). As a response to irritation, the mucosa makes more mucus and other fluids. Tiny hairlike cilia cover the mucosa. Cilia help transport mucus toward the opening of the sinus. Toomuch mucus may cause the cilia to stop working. This blocks the sinus opening. A buildup of fluid inthe sinuses then leads to symptoms such as pain and pressure. It an also encourage growth of bacteria in the sinuses. Common Symptoms of Acute Sinusitis You may have: ?? Facial pain ?? Headache ?? Fever ?? Postnasal drip ?? Nasal congestion ?? Redness of facial skin over sinus Diagnosis of Acute Sinusitis The doctor will ask about your symptoms and medical history. An evaluation will be done. A culture (sample of mucus) is sometimes taken to check for bacteria. X-rays may be taken to view fluid in the sinuses. Treatment of Acute Sinusitis Treatment is designed to unblock the sinus opening and help the cilia work again. Antihistamine and decongestant medications may be prescribed. These can reduce inflammation and decrease fluid production. If a bacterial infection is present, it can be treated with antibiotic medication. This medication should be taken until it is gone, even if you feel better. Note that antibiotics will not help a viral infection. ?? [id number] [facility], [address] [place] [address]. All rights reserved. This information is not intended as a substitute for professional medical care. Always follow your healthcare professional's instructions. Consider Using Patient Online Services Patient Online [...] if you dont have one. Go to [email or web address] and click on Create Your Account. Then, follow the directions to complete the online form. Youll be asked for your [facility] number which you can find at the top of this document. Your Goals/Additional instructions: This document has images extracted. Please consider using [employer] for all your patient education needs. Source: [facility] POWERCHART Document Id: [id number] Miscellaneous - Rafiq Boyle - 02/04/2016 4:25 PM CDT Ambulatory Discharge Medication List [facility] [address] [place] [id number] Visit Information Name: CLAUDIA MARTEL [facility] Number: [id number] Visit Date: 02/04/2016 16:25:40 Attending Provider: RAFIQ BOYLE Primary Care Provider: SIMI RICARDO PA-C CLAUDIA [...] day x 10 day(s) New Routed to [facility] [address] [place], [place] [phone] calcium-vitamin D (Calcium 500+D) 1 Tablet(s), as [...] the Following Medications: Medication list as of 02-04-16 16:25 Attention: If you have any medications at [...] Signed By: RAFIQ BOYLE V PAC Signed On:04-FEB-2016 16:25:30 Additional Information: Source: 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 Operator Intake/History Entered On: 02/04/2016 16:01 CDT Performed On: 02/04/2016 15:58 CDT by LESLY AMARO LPN Intake Chief Complaint : congestion, sinus pressure, post nasal drip, ear pain, swetas and body aches Temperature Oral : 37.0 DegC(Converted to: 98.6 DegF) Peripheral Pulse Rate : 66 /min Respiratory Rate : 14 /min Heart Rhythm : Regular Systolic Blood Pressure : 104 mmHg Diastolic Blood Pressure : 62 mmHg NIBP Mean : 76 mmHg BP Location : Right upper extremity Blood Pressure Cuff Size : Regular Height : 173 cm(Converted to: 5 ft 8 inch(es), 68 inch(es)) Actual Weight : 55.1 kg(Converted to: 121 lb 8 oz) Dosing Weight Clinic : 55.1 kg Clinic BSA : 1.63 Body Mass Index : 18.41 kg/m2 LESLY AMARO LPN - 02/04/2016 15:58 CDT General Info Information Given By : Patient Preferred Communication Mode : Verbal Languages : Lao Is Patient Female and 13-50 no hysterectomy : Yes Status : Patient denies Are you ? : No LESLY AMARO LPN - 02/04/2016 15:58 CDT Subjective Pain Symptoms : Yes LESLY AMARO LPN - 02/04/2016 15:58 CDT Dependent Habits Exposure to Tobacco Smoke : Other: Never Smoking Status : Never smoker Tobacco 2A : No Tobacco Use/Currently Using : No Tobacco Use/Last 30 Days : No Tobacco Use/Last 12 months : No LESLY AMARO LPN - 02/04/2016 15:58 CDT [facility] Document Id: [id number] documented in this encounter Plan of Treatment Not on filedocumented as of this encounter Visit Diagnoses Not on filedocumented in this encounter
--- OUTSIDE RECORDS SUMMARY | 2021-12-14 01:31 | XMS_ITS | Encounter Summary ---
:1990 Author Organization [facility] Address [address] [place] [address] Care Team Providers Name Role Phone Unavailable Primary Care Provider Unavailable Encounter Details Date Type Department Care Team Description 05/10/2012 Hospital Encounter [facility] Shiv Roberson M.D. [address] [place] [address] (Wo rk) Social History Tobacco [...] How often do you attend congregational or yazidi services? Never 03/05/2021 Do you [...] or slept in a snf (including now)? Sex Assigned at Date Recorded Female 01/16/2018 3:45 PM CDT documented as of this encounter Last Filed Vital Signs Vital Sign Reading Time Taken Comments Blood Pressure 110/60 05/10/2012 3:22 PM DIGITAL MEDIA COORDINATOR Pulse 80 05/10/2012 3:22 PM DIGITAL MEDIA COORDINATOR Temperature - - Respiratory Rate 16 05/10/2012 3:22 PM DIGITAL MEDIA COORDINATOR Oxygen Saturation - - Inhaled Oxygen Concentration - - Weight 60.4 kg (133 lb 2.5 oz) 05/10/2012 3:22 PM DIGITAL MEDIA COORDINATOR Height - - Body Mass Index 20.18 05/02/2012 11:49 AM DIGITAL MEDIA COORDINATOR documented in this encounter Progress Notes Shiv Roberson M.D. - 05/10/2012 2:52 PM CST [id number] CHIEF COMPLAINT/REASON FOR VISIT Rib pain HISTORY OF PRESENT ILLNESS This is a 22-year-old female who comes in today with chief complaint of rib pain; it has been going on since last Sunday night. Patient states that pain happened when she was coughing and now it is more of a persistent pain. She said that she went to the chiropractor and felt that she might have a rib and last night and this morning she has had more severe pain. With the chiropractor, she went back today and found that it was even more sensitive when the chiropractor was working on it. Therefore, she presents here. Her cough has improved quite a bit after she was started on amoxicillin. She denies any fevers or chills; she has some shortness of breath when lying down and it hurts more on the front and the side. She denies any trauma. CURRENT MEDICATIONS Reviewed and reconciled with the EMR 05/10/2012 with no changes. ALLERGIES Reviewed and reconciled with the EMR 05/10/2012 with no changes. VITAL SIGNS Per EMR PHYSICAL EXAMINATION GENERAL: She is alert and oriented x3 and appears in no acute distress. HEENT: Pupils equally round and reactive to light and accommodation. Extraocular movements are intact. CARDIOVASCULAR: Heart is regular rate and rhythm without any murmurs, rubs, or gallops. RESPIRATORY: Lungs clear to auscultation bilaterally. GI: Abdomen is soft, nontender, nondistended. Bowel sounds present in all quadrants. Sap Hana Architect to palpation over the costochondral junction. IMPRESSION/REPORT/PLAN 1. Likely costochondritis. We will treat symptomatically with ibuprofen as needed. Patient's cough is improving; she has cough medicine at home. She will continue to use ad and followup if not improving. Shiv Roberson M.D./mariella Electronically Signed By: SHIV ROBERSON MD On: 06/12/2012 12:23 PM Source: 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 Coughing and deep breaths hurt, movement Onset of Symptoms : Sunday Temperature Oral : 36.8C(Converted to: 98.2DegF) Peripheral Pulse Rate : 80/min Respiratory Rate : 16/min Systolic Blood Pressure : 110mmHg Diastolic Blood Pressure : 60mmHg NIBP Mean : 77mmHg BP Location : Right upper extremity Blood Pressure Cuff Size : Regular Actual Weight : 60.4kg(Converted to: 133lb 3oz) Weight Source : Standing scale Dosing Weight Clinic : 60.40kg SALLY ANGULO - 05/10/2012 15:22 DIGITAL MEDIA COORDINATOR General Info Information Given By : Patient Preferred Communication Mode : Verbal Languages : Tajik SALLY ANGULO - 05/10/2012 15:22 DIGITAL MEDIA COORDINATOR Subjective Pain Symptoms : Yes SALLY ANGULO 05/10/2012 15:22 DIGITAL MEDIA COORDINATOR Pain Pain Assessment Grid Pain 1 Location : Other: rib Laterality : Left Intensity : 8 SALLY ANGULO 05/10/2012 15:22 DIGITAL MEDIA COORDINATOR Dependent Habits Tobacco Use/Currently Using : No Exposure to Tobacco Smoke : Other: Never Smoking Status : Never smoker SALLY ANGULO L - 05/10/2012 15:22 DIGITAL MEDIA COORDINATOR Allergy Allergies (Active) Zithromax Z-Juan Estimated Onset Date: Unspecified ; Reactions: rash ; Created By: JOSE A JORGENSEN MD; Reaction Status: Active ; Category: Drug ; Substance: Zithromax Z-Juan ; Type: Allergy ; Updated By: JOSE A JORGENSEN MD; Reviewed Date: 05/10/2012 15:17 DIGITAL MEDIA COORDINATOR Source: [facility] [employer] Document Id: [id number] documented in this encounter Plan of Treatment Not on filedocumented as of this encounter Visit Diagnoses Not on filedocumented in this encounter
--- OUTSIDE RECORDS SUMMARY | 2021-12-14 01:31 | XMS_ITS | Encounter Summary ---
:1990 Author Organization [facility] Address [address] [place] [address] Care Team Providers Name Role Phone Unavailable Primary Care Provider Unavailable Encounter Details Date Type Department Care Team Description 05/04/2012 Hospital Encounter [facility]X [facility] Jany Wiley, SERGE, C.N.P. Social History Tobacco Use Types Packs/Day Years [...] How often do you attend mosque or jehovah's witness services? Never 03/05/2021 Do [...] Sign Reading Time Taken Comments Blood Pressure 108/76 05/04/2012 10:17 AM LABORATORY ANALYST Pulse 68 05/04/2012 10:17 AM LABORATORY ANALYST Temperature - - Respiratory Rate 16 05/04/2012 10:17 AM LABORATORY ANALYST Oxygen Saturation - - Inhaled Oxygen Concentration - - Weight 57.6 kg (126 lb 15.8 oz) 05/04/2012 10:17 AM LABORATORY ANALYST Height - - Body Mass Index 19.25 05/02/2012 11:49 AM LABORATORY ANALYST documented in this encounter Progress Notes Enma Wiley - 05/04/2012 9:27 AM CST [id number] CHIEF COMPLAINT/REASON FOR VISIT Cough, productive, times 10 days. HISTORY OF PRESENT ILLNESS Patient states that the cough is worse at night and in the morning. She has tried various duhm-eki-[id number] products; however, none have been helping. She denies fever, nausea, vomiting or diarrhea. Shedoes feel short of breath at times with coughing. She does not currently feel short of breath. CURRENT MEDICATIONS Reviewed EMR dated 05/04/2012 and no changes. ALLERGIES Reviewed EMR dated 05/04/2012 and no changes. VITAL SIGNS Reviewed EMR dated 05/04/2012 and no changes. PHYSICAL EXAMINATION GENERAL: Well-nourished, well-developed 22-year-old female whom is non-ill appearing, in no acute distress. HEAD: Normocephalic, atraumatic. EYES: PERRLA, EOMI. Conjunctivae clear. ENT: Ear canals have a small amount of cerumen without discharge, lesion or foreign body. TMs are pearly juarez and shiny. Nares are patent. Mouth is benign. Neck is supple without lymphadenopathy. LUNGS: Clear but dry persistent cough noted. HEART: Regular rate and rhythm. S1, S2 without S3, S4, murmurs, or gallops. IMPRESSION/REPORT/PLAN Cough PLAN: Due to the length of the illness, we are going to treat with amoxicillin as directed per EMR. I did encourage her to push fluids, rest, and call if symptoms are worse or if she has any questions.Patient is comfortable with this plan. Oh Karimi, RJaguar/nigel Electronically Signed By: ENMA WILEY NP On: 05/11/2012 03:59 PM Source: [facility] MHSDOLBEYNONRADSYS Document Id: [id number] RATORY ANALYST documented in this encounter Miscellaneous Notes Miscellaneous - Flaco Baum L.P.N. - 05/04/2012 10:17 AM CST Adult Payroll Coordinator Intake/History Adult Payroll Coordinator Intake/History Entered On: 05/04/2012 10:19 LABORATORY ANALYST Performed On: 05/04/2012 10:17 LABORATORY ANALYST by FLACO BAUM Intake Chief Complaint : Pt has productive cough that is not getting any better. Onset of Symptoms : x 1 1/2 weeks Temperature Oral : 36.7C(Converted to: 98.1DegF) Peripheral Pulse Rate : 68/min Respiratory Rate : 16/min Systolic Blood Pressure : 108mmHg Diastolic Blood Pressure : 76mmHg NIBP Mean : 87mmHg BP Location : Right upper extremity Blood Pressure Cuff Size : Regular Actual Weight : 57.6kg(Converted to: 127lb 0oz) Dosing Weight Clinic : 57.60kg FLACO BAUM - 05/04/2012 10:17 LABORATORY ANALYST General Info Information Given By : Patient Preferred Communication Mode : Verbal Languages : [place] FLACO BAUM - 05/04/2012 10:17 LABORATORY ANALYST Subjective Pain Symptoms : Yes FLACO BAUM - 05/04/2012 10:17 LABORATORY ANALYST Pain Pain Assessment Grid Pain 1 Location : Chest FLACO BAUM - 05/04/2012 10:17 LABORATORY ANALYST Dependent Habits Tobacco Use/Currently Using : No Exposure to Tobacco Smoke : Other: Never Smoking Status : Never smoker FLACO BAUM - 05/04/2012 10:17 LABORATORY ANALYST Allergy Allergies (Active) Zithromax Z-Juan Estimated Onset Date: Unspecified ; Reactions: rash ; Created By: JOSE A JORGENSEN MD; Reaction Status: Active ; Category: Drug ; Substance: Zithromax Z-Juan ; Type: Allergy ; Updated By: JOSE A JORGENSEN MD; Reviewed Date: 05/04/2012 10:15 LABORATORY ANALYST Source: [facility] [employer] Document Id: [id number] RATORY ANALYST documented in this encounter Plan of Treatment Not on filedocumented as of this encounter Visit Diagnoses Not on filedocumented in this encounter
--- OUTSIDE RECORDS SUMMARY | 2021-12-14 01:31 | XMS_ITS | Encounter Summary ---
:1990 Author Organization [facility] Address [address] [place] [address] Care Team Providers Name Role Phone Unavailable Primary Care Provider Unavailable Encounter Details Date Type Department Care Team Description 04/20/2016 Hospital Encounter [facility] Yuni Joseph M.D. Social History Tobacco Use Types Packs/Day Years [...] How often do you attend congregation or episcopalian services? Never 03/05/2021 Do you [...] Sign Reading Time Taken Comments Blood Pressure 102/58 04/20/2016 11:41 AM FINAL RAIL CUTTER Pulse 88 04/20/2016 11:41 AM FINAL RAIL CUTTER Temperature - - Respiratory Rate 16 04/20/2016 11:41 AM FINAL RAIL CUTTER Oxygen Saturation - - Inhaled Oxygen Concentration - - Weight 57.2 kg (126 lb 1.7 oz) 04/20/2016 11:41 AM FINAL RAIL CUTTER Height 173 cm (5' 8.11) 04/20/2016 11:41 AM FINAL RAIL CUTTER Body Mass Index 19.11 04/20/2016 11:41 AM FINAL RAIL CUTTER documented in this encounter Medications at Time of Discharge Medication Sig Dispensed Refills Start Date End Date magnesium citrate 100 Take 300 mL by mouth 0 11/0603/10/2017 mg tablet as needed. pimecrolimus (ELIDEL) 1 Apply 1 application 0 04/201603/21/2021 % cream topically 2 (two) times a day. Patient stated she uses as needed documented as of this encounter Progress Notes Hal Joseph M.D. - 04/20/2016 10:56 AM CST [id number] Document Contains Addenda REVISION HISTORY 04/23/2016 at 3:57 p.m. - Modification to add Addendum by Hal Joseph M.D. CHIEF COMPLAINT/REASON FOR VISIT Abdominal pain. HISTORY OF PRESENT ILLNESS This pleasant 26-year-old female presents with a 3-day history of epigastric region abdominal discomfort associated with an element of nausea without vomiting that she describes as a dull to sharp irritation, somewhat aggravated with activity. Reportedly there was a temp that was not recorded 2 days ago that has quieted and earlier loose stool activity has quieted as well. Appetite is down but she has been seeking to ingest fluids. No other acute symptomatic concerns are voiced. There is a family history of gallbladder challenge. Once again, the patient's pain is localized to the epigastrium. The patient has not appreciated any discoloration of stool or urine. SYSTEMS REVIEW No current acute cardiorespiratory positive. Patient refutes any chance of . Not currently sexually active. MEDICATIONS As per EMR. ALLERGIES As listed. 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 PHYSICAL EXAMINATION GENERAL: Pleasant female, in no acute distress. CARDIOVASCULAR: Regular. LUNGS: Clear. ABDOMEN: Not distended. Bowel sounds are active. Patient has 1 to 2+ deep tenderness midepigastrium with plus/minus rebound. No other acute tenderness, organomegaly or mass including careful palpation of the right upper quadrant. IMPRESSION/REPORT/PLAN Epigastric abdominal discomfort with associated element of nausea, etiology uncertain. Must suspect peptic acid origin. DIAGNOSTIC: Multiple screening lab studies were accomplished including CBC, urinalysis, C-reactive protein, ALT, lipase and creatinine and all returned benign. Discussed further workup such as imaging and/or endoscopy which at least for now we mutually agreed to defer. This should be reconsidered based on the clinical course. THERAPEUTIC: Patient did receive a GI cocktail today which was of limited perceived benefit. Will follow this with omeprazole and Zofran for as-needed use as per EMR. Clear liquids of nutritional value, advancing diet as tolerated. PATIENT EDUCATION: Reviewed the above. Follow up as needed in lack of steady and complete clinical quieting. ADDENDUM Following the patient's departure from the clinic and having received the GI cocktail here, the patient developed a mild flare of urticaria with scattered lesions already quieting upon return to the clinic. She has had an associated pruritus, but absolutely no acute respiratory symptoms or other perception of edema. On examination there is no evidence of angioedema on inspection of the oral cavity. Cardiovascular: Regular. Lungs: Clear. Skin: Does reveal scattered slight urticaria with wheal and flare. I have explained to the patient and her mother that the ingredients in the GI cocktail are generic Maalox and lidocaine and I have labeled these as suspected allergies in the EMR. She was given Benadryl 50 mg by mouth here and may continue 25 to 50 mg by mouth 3 times as needed at home. Hal Joseph M.D./shaneka Electronically Signed By: HAL JOSEPH MD On: 04/20/2016 07:59 PM Hal Joseph M.D./ramesh Electronically Signed By: HAL JOSEPH MD On: 04/20/2016 07:59 PM Co-Signed By: HAL JOSEPH MD On: 04/23/2016 06:16 PM Source: [facility]OLN[facility]AL[facility] Document Id: [id number] L RAIL CUTTER documented in this encounter Miscellaneous Notes Telephone Encounter - Conversion, Historical Provider Ser - 08/28/2016 4:23 PM CDT *Phone Message/TeeOncoGenexpaul Document Contains Addenda Addendum by RYNE HEARN RN on August 29, 2016 08:18:03 CDT Called the patient back. Advised the Rx was sent to her pharmacy. Addendum by RYNE HEARN RN on August 29, 2016 08:15:18 CDT Submitted: Order:norgestimate-ethinyl estradiol (Mononessa 0.25 mg-35 mcg oral tablet) 1 tab(s) PO Daily Qty: 84 tab(s) Refills: 0 Substitutions Allowed Route To Pharmacy - [facility] [id number] Signed by RYNE HEARN RN 08/29/2016 08:14:16 From: FARZANA HANNAH (ALICIA Same Day Nurse) To: [facility]care [facility]; Sent: 08/28/2016 16:23:22 CDT Subject: *Phone Message/Luz Caller is: ( x ) Patient ( ) Mother ( ) Father ( ) Spouse ( ) Daughter ( ) Son ( ) Pharmacy ( ) Other: Physician: Patient MRN #: Reason for Call: Message: Patient was called that her birthcontrol rx could be filled at [facility] but pt spoke to pharmacy and they do not have order there. Please call [phone] Advice/Action: Source used: ( ) Verbalizes understanding [...] back cell phone number ( ) Source: [facility] POWERCHART Document Id: [id number] L RAIL CUTTER Miscellaneous - Hal Joseph M.D. - 04/20/2016 1:06 PM CST Results Notification Document Contains Addenda Addendum by VALENTINA MORALES LPN on April 20, 2016 16:15:44 FINAL RAIL CUTTER pt notified at next visit From: HAL JOSEPH MD To: [facility] Same Day Nurse; Sent: 04/20/2016 13:06:55 FINAL RAIL CUTTER ! Show up: 04/20/2016 13:06:55 FINAL RAIL CUTTER Subject: Results Notification Actions: Notify patient of results Results: Date Result Name Ind Value Ref Range 04/20/2016 12:35 UA Color Yellow (Yellow - ) 04/20/2016 12:35 UA Clarity Clear (Clear - ) 04/20/2016 12:35 UA Spec Grav 1.029 (1.001 - 1.035) 04/20/2016 12:35 UA pH 5.0 04/20/2016 12:35 UA Protein Negative (Negative - ) 04/20/2016 12:35 UA Glucose Negative (Negative - ) 04/20/2016 12:35 UA Ketones (*) Trace (Negative - ) 04/20/2016 12:35 UA Bili Negative (Negative - ) 04/20/2016 12:35 UA Urobilinogen 1.0 mg/dL (0.2 - ) 04/20/2016 12:35 UA Blood Negative (Negative - ) 04/20/2016 12:35 UA Nitrite Negative (Negative - ) 04/20/2016 12:35 UA Leuk Est Negative (Negative - ) 04/20/2016 12:29 Creatinine 0.76 mg/dL (0.60 - 1.10) 04/20/2016 12:29 EGFR (MDRD) >60 mL/min/1.73m2 (>=60 - ) 04/20/2016 12:29 EGFR (MDRD) >60 mL/min/1.73m2 (>=60 - ) 04/20/2016 12:29 ALT 26 unit/L (7 - 45) 04/20/2016 12:29 Lipase Lvl 32 U/L (13 - 60) 04/20/2016 12:29 CRP 4.3 mg/L ( - <=5.0) 04/20/2016 12:29 Hgb 15.5 g/dL (12.0 - 15.5) 04/20/2016 12:29 Hct (H) 47.2 % (34.9 - 44.5) 04/20/2016 12:29 WBC 6.9 x10(9)/L (3.4 - 10.5) 04/20/2016 12:29 RBC (H) 5.05 x10(12)/L (3.90 - 5.03) 04/20/2016 12:29 MCV 93.5 fL (82.0 - 98.0) 04/20/2016 12:29 RDW 12.5 % (11.9 - 15.5) 04/20/2016 12:29 Platelet 245 x10(9)/L (150 - 450) 04/20/2016 12:29 Neutro Absolute 4.03 10(9)/L (1.70 - 7.00) 04/20/2016 12:29 Lymph Absolute 1.71 x10(9)/L (0.90 - 2.90) 04/20/2016 12:29 [place]son Absolute 0.74 x10(9)/L (0.30 - 0.90) 04/20/2016 12:29 Eos Absolute 0.35 x10(9)/L (0.05 - 0.50) 04/20/2016 12:29 Baso Absolute 0.02 x10(9)/L (0.00 - 0.30) Source: [facility] POWERCHART Document Id: [id number] Miscellaneous - Hal Joseph M.D. - 04/20/2016 12:08 PM CST Ambulatory Patient Summary [facility] [address] [place], [place] [id number] Visit Information Name: CLAUDIA MARTEL [facility] Number: [id number] Current Date: 04/20/2016 12:08:02 Physicians Attending Provider: HAL JOSEPH MD Primary Care Provider: CHELY RICARDO PA-C [...] the Following Medications: Medication list as of 04-20-16 12:08 Attention: If you have any medications at home that are not on this list, DO NOT take them until youcontact your provider for clarification. Give a copy of your medication list to your primary care provider. Update your medication list any time medications or doses are changed and carry your medication list at all times in case of emergency. Electronically Signed By: HAL JOSEPH MD Signed On:20-APR-2016 12:07:59 Your Allergies & Intolerances Substance Reaction Symptoms [...] Appointments Date Time Location Provider 05/24/2016 15:15 [facility] Chely Ricardo PA-C Attention: Contact your [...] dont have one. Go to [email or web address] and click on Create Your Account. Then, follow the directions to complete the online form. Youll be asked for your [facility] number which you can find at the top of this document. Your Goals/Additional instructions: Source: [facility] POWERCHART Document Id: [id number] L RAIL CUTTER Miscellaneous - Hal Joseph M.D. - 04/20/2016 12:08 PM CST Ambulatory Discharge Medication List [facility] [address] [place], [place] [phone] Visit Information Name: TAHMINACLAUDIA MEYER [facility] Number: [id number] Current Date: 04/20/2016 12:08:02 Attending Provider: HAL JOSEPH MD Primary Care Provider: CHELY RICARDO PA-C TAHMINA, CLAUDIA LYNCH has been given the following list [...] the Following Medications: Medication list as of 04-20-16 12:08 Attention: If you have any medications at home that are not on this list, DO NOT take them until youcontact your provider for clarification. Give a copy of your medication list to your primary care provider. Update your medication list any time medications or doses are changed and carry your medication list at all times in case of emergency. Electronically Signed By: HAL JOSEPH MD Signed On:20-APR-2016 12:07:59 Additional Information: Source: [facility] POWERCHART Document Id: [id number] L RAIL CUTTER Miscellaneous - Leonie Carrillo CSymoneMSymoneA. - 04/20/2016 11:41 AM CST Adult Transformation Manager Intake/History Adult Transformation Manager Intake/History Entered On: 04/20/2016 11:44 FINAL RAIL CUTTER Performed On: 04/20/2016 11:41 FINAL RAIL CUTTER by LEONIE CARRILLO [facility] Intake Temperature Axillary : 37.2 DegC(Converted to: 99.0 DegF) (VT) LEONIE CARRILLO [facility] - 04/20/2016 11:44 FINAL RAIL CUTTER Chief Complaint : abdomen pain for days fever and aches Pain 3-8 in waves/bloating family history of gallbladder issues Peripheral Pulse Rate : 88 /min Respiratory Rate : 16 /min Systolic Blood Pressure : 102 mmHg Diastolic Blood Pressure : 58 mmHg NIBP Mean : 73 mmHg BP Location : Right upper extremity Blood Pressure Cuff Size : Regular SpO2 : 98 % Height : 173 cm(Converted to: 5 ft 8 inch(es), 68 inch(es)) Actual Weight : 57.2 kg(Converted to: 126 lb 2 oz) Weight Source : Standing scale Dosing Weight Clinic : 57.2 kg Clinic BSA : 1.66 Body Mass Index : 19.11 kg/m2 LEONIE CARRILLO OFFICE TECHNOLOGY PROFESSOR - 04/20/2016 11:41 FINAL RAIL CUTTER General Info Information Given By : Patient Languages : Lao Is Patient Female and 13-50 no hysterectomy : Yes Status : Patient denies Are you ? : No LEONIE CARRILLO [facility] - 04/20/2016 11:41 FINAL RAIL CUTTER Subjective Pain Symptoms : Yes LEONIE CARRILLO [facility] - 04/20/2016 11:41 FINAL RAIL CUTTER Pain Scale Pain Scale Verbal 0-10 : Open LEONIE CARRILLO [facility] - 04/20/2016 11:41 FINAL RAIL CUTTER Pain Pain Assessment Grid Pain 1 Location : Abdomen (Comment: pain 3-8 [LEONIE CARRILLO CMA - 04/20/2016 11:41 FINAL RAIL CUTTER] ) LEONIE CARRILLO [facility] - 04/20/2016 11:41 FINAL RAIL CUTTER Dependent Habits Exposure to Tobacco Smoke : Other: Never Smoking Status : Never smoker Tobacco 2A : No Tobacco Use/Currently Using : No Tobacco Use/Last 30 Days : No Tobacco Use/Last 12 months : No LEONIE CARRILLO [facility] - 04/20/2016 11:41 FINAL RAIL CUTTER Source: [facility] POWERCHART Document Id: [id number] FINAL RAIL CUTTER!3 L RAIL CUTTER documented in this encounter Plan of Treatment Not on filedocumented as of this encounter Procedures Procedure Name Priority Date/Time Associated Comments Diagnosis URINALYSIS, ROUTINE Routine 04/20/2016 12:35 Resu lts for this PM FINAL RAIL CUTTER procedure are i n the results section. AUTOMATED DIFFERENTIAL, Routine 04/20/2016 12:29 Results for this B PM FINAL RAIL CUTTER procedure are i n the results section. CBC WITH DIFFERENTIAL, B Routine 04/20/2016 12:29 Results for this PM FINAL RAIL CUTTER procedure are i n the results section. C-REACTIVE PROTEIN Routine 04/20/2016 12:29 Resul ts for this (CRP), S/P PM FINAL RAIL CUTTER procedure are i n the results section. ALANINE AMINOTRANSFERASE Routine 04/20/2016 12:29 Results for this (ALT), S/P PM FINAL RAIL CUTTER procedure are i n the results section. LIPASE, S/P Routine 04/20/2016 12:29 Results for this PM FINAL RAIL CUTTER procedure are i n the results section. CREATININE WITH EGFR, Routine 04/20/2016 12:29 Re sults for this S/P PM FINAL RAIL CUTTER procedure are i n the results section. documented in this encounter Results (ABNORMAL) Urinalysis, Routine (04/20/2016 12:35 PM FINAL RAIL CUTTER) [facility] gist Method Time Signature HXUr Color Yellow Yellow POWERCHART Clarity Clear Clear POWERCHART Glucose Negative Negative POWERCHART HXBILIRUBIN Negative Negative POWERCHART Ketones, QL(U) Trace (A) Negative POWERCHART Specific 1.029 1.001 - POWERCHART [place], POCT, 1.035 U Comment: Reference Range Specific [place]: 1.000-1.035 pH, POCT, Urine 5.0 POWERCHART Comment: UA pH Reference Range pH: 5.0-8.0 Protein, Ur, Dip Negative Negative POWERCHART Urobilinogen 1.0 0.2 MGDL POWERCHART Comment: Reference Range Urobilinogen: 0.2-1.0 mg/dL HXNITRITE Negative Negative POWERCHART HXBLOOD Negative Negative POWERCHART Leukocyte Esterase Negative Negative POWERCHART Specimen (Source) Anatomical Collection Method Collection Time Re ceived Time Location / / Volume Laterality Urine, First 04/20/2016 12:35 Voided PM FINAL RAIL CUTTER Hal Joseph M.D. LAB URINE ORDERABLES Performing Organization Address City/State/ZIP Code Phon e Number POWERCHART Automated Differential (04/20/2016 12:29 PM FINAL RAIL CUTTER) P athologist Signature Absolute 4.03 1.70 - POWERCHART Neutrophils 7.00 109L Lymphocytes 1.71 0.90 - POWERCHART 2.90 X109L Monocytes 0.74 0.30 - POWERCHART 0.90 X109L Eosinophils 0.35 0.05 - POWERCHART 0.50 X109L Absolute 0.02 0.00 - POWERCHART Basophil 0.30 X109L Specimen Anatomical Collection Method Collection Time Receive d Time (Source) Location / / Volume Laterality Blood 04/20/2016 12:29 04/20/2016 PM FINAL RAIL CUTTER 12:29 PM FINAL RAIL CUTTER Hal Joseph M.D. LAB BLOOD ADD-ON Performing Organization Address City/State/ZIP Code Phon e Number POWERCHART (ABNORMAL) CBC with Differential (04/20/2016 12:29 PM FINAL RAIL CUTTER) [facility] Signature Leukocytes 6.9 3.4 - 10.5 POWERCHART X109L Erythrocytes 5.05 (H) 3.90 - POWERCHART 5.03 [id number] Hemoglobin 15.5 12.0 - POWERCHART 15.5 GDL Hematocrit 47.2 (H) 34.9 - POWERCHART 44.5 MCV 93.5 82.0 - POWERCHART 98.0 FL HX RDW 12.5 11.9 - POWERCHART 15.5 Platelet Count 245 150 - 450 POWERCHART X109L Specimen (Source) Anatomical Collection Method Collection Time Re ceived Time Location / / Volume Laterality Blood 04/20/2016 12:29 PM FINAL RAIL CUTTER Hal Joseph M.D. LAB BLOOD ADD-ON Performing Organization Address City/State/ZIP Code Phon e Number POWERCHART ALT (Alanine Aminotransferase) (04/20/2016 12:29 PM FINAL RAIL CUTTER) athologist Signature Alanine 26 7 - 45 POWERCHART Amniotransferas UNITL e, LD Specimen (Source) Anatomical Collection Method Collection Time Re ceived Time Location / / Volume Laterality Blood 04/20/2016 12:29 PM FINAL RAIL CUTTER Hal Joseph M.D. LAB BLOOD ADD-ON Performing Organization Address City/State/ZIP Code Phon e Number POWERCHART Creatinine with eGFR (04/20/2016 12:29 PM FINAL RAIL CUTTER) P athologist Signature Creatinine, S 0.76 0.60 - 1.10 POWERCHART MGDL HXeGFR (MDRD) >60 >=60 POWERCHART [id number] eGFR >60 >=60 POWERCHART Black/ [id number] [place] Specimen (Source) Anatomical Collection Method Collection Time Re ceived Time Location / / Volume Laterality Blood 04/20/2016 12:29 PM FINAL RAIL CUTTER Hal Joseph M.D. LAB BLOOD ADD-ON Performing Organization Address City/State/[facility] Code Phon e Number POWERCHART Lipase (04/20/2016 12:29 PM FINAL RAIL CUTTER) P athologist Signature Lipase, S 32 13 - 60 UL POWERCHART Comment: Reference ranges have not been established for patients that are less than 16 years of age Specimen (Source) Anatomical Collection Method Collection Time Re ceived Time Location / / Volume Laterality Blood 04/20/2016 12:29 PM FINAL RAIL CUTTER Hal Joseph M.D. LAB BLOOD ADD-ON Performing Organization Address City/[facility] Code Phon e Number POWERCHART CRP (C-Reactive Protein) (04/20/2016 12:29 PM FINAL RAIL CUTTER) P athologist Signature C-Reactive 4.3 <=5.0 MGL POWERCHART Protein (CRP), S Specimen (Source) Anatomical Collection Method Collection Time Re ceived Time Location / / Volume Laterality Blood 04/20/2016 12:29 PM FINAL RAIL CUTTER Hal Joseph M.D. LAB BLOOD ADD-ON Performing Organization Address City/State/ZIP Code Phon e Number POWERCHART documented in this encounter Visit Diagnoses Not on filedocumented in this encounter
--- OUTSIDE RECORDS SUMMARY | 2021-12-14 01:31 | XMS_ITS | Encounter Summary ---
:1990 Author Organization [facility] Address [address] [place] [address] Care Team Providers Name Role Phone Unavailable Primary Care Provider Unavailable Encounter Details Date Type Department Care Team Description 06/14/2015 Hospital Encounter HX [facility] Chely Gonzalez, P.A. [address] [place] [address] HARRY Liu [id number] (Wo rk) Social History Tobacco Use Types [...] How often do you attend sikhism or christian services? Never 03/05/2021 Do you [...] or slept in a fdc (including now)? Sex Assigned at Date Recorded Female 01/16/2018 3:45 PM CDT documented as of this encounter Last Filed Vital Signs Vital Sign Reading Time Taken Comments Blood Pressure 112/78 06/14/2015 8:37 AM SCREENER AND BLENDER Pulse 76 06/14/2015 8:37 AM SCREENER AND BLENDER Temperature - - Respiratory Rate - - Oxygen Saturation - - Inhaled Oxygen Concentration - - Weight 58.3 kg (128 lb 8.5 oz) 06/14/2015 8:37 AM SCREENER AND BLENDER Height 173 cm (5' 8.11) 06/14/2015 8:37 AM SCREENER AND BLENDER Body Mass Index 19.48 06/14/2015 8:37 AM SCREENER AND BLENDER documented in this encounter Medications at Time of Discharge Medication Sig Dispensed Refills Start Date End Date magnesium citrate 100 mg Take 300 mL by mouth 0 0 12/04/2014 03/10/2017 tablet as needed. documented as of this encounter Progress Notes Chely Ricardo - 06/14/2015 8:25 AM CST [id number] CHIEF COMPLAINT/REASON FOR VISIT Mole removal. HISTORY OF PRESENT ILLNESS Claudia is a 25-year-old female who presents to the clinic today for a mole removal. Her twin sister does have does have a history of melanoma so she did have a full skin exam on 05/21/[address] Grisel Greenfield in [place]. Please refer to that clinic note for full details. Dr. Greenfield did note a h yperpigmented nevus over the left upper back which she describes as having irregular borders and different colors. She did recommend that the Claudia return for excision. Today, Claudia reports that she believes that she has had this mole for as long as she can remember. There has been no tendernessor itching. No bleeding, scabbing, or change that she has noted. She has never had any moles removedpersonally. MEDICATION Reviewed EMR 06/14/2015. ALLERGIES Zithromax. VITAL SIGNS Weight 58.3 kg. Body mass index 19.48 kg/m2. Pulse 76 per minute. Blood pressure 112/78. PHYSICAL EXAMINATION GENERAL: Alert and oriented female. Well developed and well nourished and in no acute distress. SKIN: Over the left upper back is a minimally raised, hyperpigmented nevus measuring 3 x 2.5 mm in diameter. Slightly irregular borders. No scabbing or friability. IMPRESSION/REPORT/PLAN Hyperpigmented nevus of uncertain behavior. PLAN: Lesion removed today with punch biopsy. See procedure note below. Patient tolerated well, and she will return in 1 week for suture removal. PROCEDURE Punch biopsy. Written upset consent was obtained. Risks and benefits were outlined with patient. During this procedure, the universal protocol was utilized. During this procedure the universal protocol was utilized.The patient's identity was confirmed by no less than 2 patient identifiers, correct procedure was verified, correct site was verified and marked as applicable and a final pause was completed. The area of the lesion described in the physical exam was cleansed and prepped in sterile fashion. Then 1% lidocaine with epinephrine was instilled subcutaneously for local anesthesia. Once adequate anesthesia was obtained, the lesion was excised with a 4 mm punch biopsy. Two 5-0 Ethilon simple interrupted sutures are placed for wound closure. Hemostasis was obtained. The specimen was collected into a specimen jar and sent to pathology for analysis. Suture care instruction given. Melvi Luevano Electronically Signed By: CHELY RICARDO PA-C On: 07/13/2015 10:33 AM Modified by and Electronically Signed by: CHELY RICARDO PA-C On: 07/13/2015 10:33 AM Source: [facility] MHSDOLBEYNONRADSYS Document Id: [id number] ENER AND BLENDER documented in this encounter Miscellaneous Notes Miscellaneous - Chely Ricardo - 06/15/2015 11:23 AM CST Normal Results Letter 15 June 2015 CLAUDIA MARTEL [address] [address] Dear CLAUDIA MARTEL, I am pleased to report that your pathology results from your mole removal are normal. This was just a benign compound nevus. If you have questions or concerns, please do not hesitate to call our office. Result Name Current Result Pathology-Surg Path 06/14/2015 Sincerely, CHELY RICARDO [address] [place] [id number] Electronic Signature Electronically Signed By: CHELY RICARDO PA-C On: 15 June 2015 This document has images extracted. Source: [facility] POWERCHART Document Id: [id number] Miscellaneous - Chely Ricardo - 06/14/2015 9:07 AM CST Ambulatory Patient Summary [facility] [address] [place] [id number] Visit Information Name: CLAUDIA MARTEL [facility] Number: [id number] Current Date: 06/14/2015 09:07:38 Physicians Attending Provider: CHELY RICARDO PA-C Primary Care Provider: PCP, CLAUDIA FRANCIS has [...] the Following Medications: Medication list as of 06-14-15 09:07 Attention: If you have any medications at home that are not on this list, DO NOT take them until youcontact your provider for clarification. Give a copy of your medication list to your primary care provider. Update your medication list any time medications or doses are changed and carry your medication list at all times in case of emergency. Electronically Signed By: CHELY RICARDO PA-C Signed On:14-JUN-2015 09:07:31 Your Allergies & Intolerances Substance Reaction Symptoms [...] if you dont have one. Go to [email or web address] and click on Create Your Account. Then, follow the directions to complete the online form. Youll be asked for your [facility] number which you can find at the top of this document. Your Goals/Additional instructions: Source: [facility] POWERCHART Document Id: [id number] ENER AND BLENDER Miscellaneous - Chely Ricardo - 06/14/2015 9:07 AM CST Ambulatory Discharge Medication List [address] [id number] Visit Information Name: CLAUDIA MARTEL [facility] Number: [id number] Visit Date: 06/14/2015 09:07:36 Attending Provider: CHELY RICARDO PA-C Primary Care Provider: PCP, MARGO CLAUDIA MARTEL has been given the following [...] the Following Medications: Medication list as of 06-14-15 09:07 Attention: If you have any medications at home that are not on this list, DO NOT take them until youcontact your provider for clarification. Give a copy of your medication list to your primary care provider. Update your medication list any time medications or doses are changed and carry your medication list at all times in case of emergency. Electronically Signed By: CHELY RICARDO PA-C Signed On:14-JUN-2015 09:07:31 Additional Information: Source: [facility] POWERCHART Document Id: [id number] ENER AND BLENDER Miscellaneous - Mamie Augustin L.P.N. - 06/14/2015 8:37 AM CST Health Assessment Health Assessment Entered On: 06/14/2015 8:37 SCREENER AND BLENDER Performed On: 06/14/2015 8:37 SCREENER AND BLENDER by MAMIE AUGUSTIN LPN Health Assessment Complete Health Assessment Complete or Modified : Annual Health Assessment Annual Health Assessment Completed : Yes MAMIE AUGUSTIN LPN - 06/14/2015 8:37 SCREENER AND BLENDER Nutrition Nutrition Risk Factors by History Adult : None MAMIE AUGUSTIN LPN - 06/14/2015 8:37 SCREENER AND BLENDER Functional Current Daily Living Assistance : None MAMIE AUGUSTIN LPN - 06/14/2015 8:37 SCREENER AND BLENDER Dependent Habits Exposure to Tobacco Smoke : Other: Never Smoking Status : Never smoker Tobacco 2A : No Tobacco Use/Currently Using : No Tobacco Use/Last 30 Days : No Tobacco Use/Last 12 months : No Alcohol Use : No MAMIE AUGUSTIN LPN - 06/14/2015 8:37 SCREENER AND BLENDER Psychosocial Domestic Abuse Concerns : None Behavioral Health Screen/Safety Assmt : No Orthodoxy Preference : No qualifying data available. MAMIE AUGUSTIN LPN - 06/14/2015 8:37 SCREENER AND BLENDER Advance Directive Advanced Directives : No Advance Directive Additional Information : No MAMIE AUGUSTIN LPN - 06/14/2015 8:37 SCREENER AND BLENDER Educ Needs Learning Style Preference Adult Grid Patient : Demonstration Family : None MAMIE AUGUSTIN LPN - 06/14/2015 8:37 SCREENER AND BLENDER Source: [facility] POWERCHART Document Id: [id number] SCREENER AND BLENDER!27 ENER AND BLENDER Miscellaneous - Mamie Augustin L.P.N. - 06/14/2015 8:37 AM CST Adult Pharmacy Helper Intake/History Adult Pharmacy Helper Intake/History Entered On: 06/14/2015 8:39 SCREENER AND BLENDER Performed On: 06/14/2015 8:37 SCREENER AND BLENDER by MAMIE AUGUSTIN LPN Intake Chief Complaint : Mole removal Peripheral Pulse Rate : 76 /min Heart Rhythm : Regular Systolic Blood Pressure : 112 mmHg Diastolic Blood Pressure : 78 mmHg NIBP Mean : 89 mmHg BP Location : Right upper extremity Blood Pressure Cuff Size : Large Height : 173 cm(Converted to: 5 ft 8 inch(es), 68 inch(es)) Actual Weight : 58.3 kg(Converted to: 128 lb 8 oz) Weight Source : Standing scale Dosing Weight Clinic : 58.3 kg Clinic BSA : 1.67 Body Mass Index : 19.48 kg/m2 MAMIE AUGUSTIN [facility] - 06/14/2015 8:37 SCREENER AND BLENDER General Info Languages : Paraguayan Is Patient Female and 13-50 no hysterectomy : Yes Status : Patient denies Are you ? : No MAMIE AUGUSTIN [facility] - 06/14/2015 8:37 SCREENER AND BLENDER Subjective Pain Symptoms : No MAMIE AUGUSTIN [facility] - 06/14/2015 8:37 SCREENER AND BLENDER Dependent Habits Exposure to Tobacco Smoke : Other: Never Smoking Status : Never smoker Tobacco 2A : No Tobacco Use/Currently Using : No Tobacco Use/Last 30 Days : No Tobacco Use/Last 12 months : No MAMIE AUGUSTIN [facility] - 06/14/2015 8:37 SCREENER AND BLENDER [facility] Document Id: [id number] SCREENER AND BLENDER!30 ENER AND BLENDER documented in this encounter Plan of Treatment Not on filedocumented as of this encounter Procedures Procedure Name Priority Date/Time Associated Diagnosis Comme nts SURGICAL PATHOLOGY Routine 06/14/2015 2:17 PM Res ults for this SCREENER AND BLENDER procedure are i n the results section. documented in this encounter Results Pathology Surgical Pathology (06/14/2015 2:17 PM SCREENER AND BLENDER) Specimen (Source) Anatomical Collection Method Collection Time Re ceived Time Location / / Volume Laterality 06/14/2015 2:17 PM SCREENER AND BLENDER Narrative [facility] - 06/15/2015 11:18 AM SCREENER AND BLENDER [facility] in [address] [place] [address] Patient Name: CLAUDIA MARTEL Patient ID #: [id number] Collected: 06/14/2015 Address: City/State/Zip: [address] [place] [address] [address] ??[id number] Received: Reported: 06/14/2015 06/15/2015 Soc. Sec. #: ?/Age/Sex (Age: 25) ??F Physician(s): Rolando CHRISTENSEN Copy To: ? [facility] ??[id number] [address] [facility], ??[place] ??[address] SURGICAL PATHOLOGY REPORT FINAL DIAGNOSIS: SKIN, LEFT POSTERIOR BACK NEVUS, PUNCH B IOPSY: --- COMPOUND NEVUS WITHOUT ATYPIA WITH B ENIGN NEVAL CELLS FOCALLY AT A LATERAL PUNCH BIOPSY BORDER. [facility]/06/15/2015 SOBEIDA CARRERO M.D. Report electronically released. Interpretation by SOBEIDA CARRERO M.D. SPECIMEN(S) RECEIVED: LEFT POSTERIOR BACK NEVUS GROSS DESCRIPTION: Consists of a 2 mm tissue fragment. ESB, one cassette. (61797VD) DDG/SHERICE/06/14/2015 MICROSCOPIC DESCRIPTION: Reviewed by Jose L Carrero M.D.; Patholog ist [facility]/06/15/2015 Chely Sepulveda LAB SURG PATH ORDERABLES Performing Organization Address City/State/ZIP Code Phon e Number [facility] documented in this encounter Visit Diagnoses Not on filedocumented in this encounter
--- OUTSIDE RECORDS SUMMARY | 2021-12-14 01:31 | XMS_ITS | Encounter Summary ---
:1990 Author Organization [facility] Address [address] [place] [address] Care Team Providers Name Role Phone Unavailable Primary Care Provider Unavailable Encounter Details Date Type Department Care Team Description 03/15/2014 Hospital Encounter [facility]X [facility] Pal Araujo , P.A.-C. Social History Tobacco Use Types Packs/Day Years [...] How often do you attend tenriism or adventist services? Never 03/05/2021 Do you belong to [...] slept in a nursing home (including now)? Sex Assigned at Date Recorded Female 01/16/2018 3:45 PM CDT documented as of this encounter Last Filed Vital Signs Vital Sign Reading Time Taken Comments Blood Pressure 112/60 03/15/2014 11:50 AM FOIL STAMP OPERATOR Pulse 72 03/15/2014 11:50 AM FOIL STAMP OPERATOR Temperature - - Respiratory Rate 14 03/15/2014 11:50 AM FOIL STAMP OPERATOR Oxygen Saturation - - Inhaled Oxygen Concentration - - Weight 55.7 kg (122 lb 12.7 oz) 03/15/2014 11:50 AM FOIL STAMP OPERATOR Height 173 cm (5' 8.11) 03/15/2014 11:44 AM FOIL STAMP OPERATOR Body Mass Index 18.61 03/15/2014 11:44 AM FOIL STAMP OPERATOR documented in this encounter Progress Notes Pal Alcantara P.A.-C. - 03/15/2014 11:41 AM CST [id number] CHIEF COMPLAINT/REASON FOR VISIT Sinus congestion, sore throat. HISTORY OF PRESENT ILLNESS Claudia is a pleasant 24-year-old female who presents today for the evaluation of a headache, sinuscongestion, as well as sore throat. She also notes that her ears have been sensitive to sound for the last 2 weeks and she also has felt plugged up for the last 2 weeks. She notes that she has also hada cough with plenty of mucus as well as congestion. Patient also reports a headache, ear fullness, sinus pain, sneezing. She otherwise denies any fevers, chills, nausea, vomiting, shortness of breath, chest pain, abdominal pain, problems with urination, problems with bowel movements, or numbness or tingling. MEDICATIONS Reviewed per EMR on 03/15/2014. ALLERGIES Reviewed per EMR on 03/15/2014. SYSTEMS REVIEW Reviewed and unchanged as otherwise noted above. Please see the HPI for review of systems. PAST MEDICAL/SURGICAL HISTORY Patient had a septoplasty performed as well the patent ductus arteriosus and had asthma as a young child. SOCIAL HISTORY Patient notes that she has been drinking plenty of fluids. VITAL SIGNS Temperature 36.4 degrees Celsius, pulse 72, respiratory rate 14, blood pressure 112/60. PHYSICAL EXAMINATION GENERAL: Patient is a well-developed, well-nourished 24-year-old female in no apparent distress. Patient is alert, cooperative, and oriented x3. HEENT: Head, normocephalic, atraumatic with normal appearance without evidence of abnormalities. Ears, external auditory canals are free and clear of lesions. The tympanic membranes are normal withnormal cone of light bilaterally. There is no erythema or bulging noted. Nasal mucosa pink and moist. There is some enlargement of the turbinates, and they do appear somewhat boggy. Conjunctivae noninjected, nonerythematous. Sclerae are white and nonicteric. Oral mucosa pink and moist without lesions. The posterior pharynx appears somewhat erythematous without petechiae or exudates noted. LYMPHATICS: There is no cervical or supraclavicular lymphadenopathy noted. HEART: Regular rate and rhythm. Normal S1 and S2. No murmurs, rubs, or gallops auscultated. LUNGS: Clear to auscultation bilaterally. ABDOMEN: Soft, nontender, nondistended. IMPRESSION/REPORT/PLAN Sinusitis. PLAN: I encouraged patient to continue to utilize supportive measures. Patient was also given Augmentin 875/125 one tab by mouth 2 times a day x10 days. Patient was encouraged to follow up in 10 days, if she is not better. Otherwise, patient was encouraged to continue to drink plenty of fluids, get plenty of rest, and utilize ibuprofen or Tylenol as needed. All of patient's questions were answered during today's visit. Patient is in agreement with the plan. Pal Alcantara P.A.-C./shaneka Electronically Signed By: PAL ALCANTARA PAC On: 03/31/2014 08:38 AM Modified by and Electronically Signed by: PAL ALCANTARA On: 03/31/2014 08:38 AM Source: [facility] MHSDOLBEYNNATTYSYS Document Id: [id number] STAMP OPERATOR documented in this encounter Miscellaneous Notes Miscellaneous - Pal Alcantara P.A.-C. - 03/15/2014 12:15 PM CST Ambulatory Patient Summary [facility] [address] [place], [place] [id number] Visit Information Name: CLAUDIA MARTEL [facility] Number: [id number] Current Date: 03/15/2014 12:15:00 Physicians Attending Provider: PAL ALCANTARA Primary Care Provider: RIRI JAMES [facility] CLAUDIA MARTEL has been given the following [...] hours as needed for Cough and congestion *albuterol (Ventolin 90 mcg/inh inhalation aerosol with adapter) amoxicillin-clavulanate (Augmentin 875 mg-125 mg oral tablet) 1 Tablet(s), Oral, two times a day x 10 day(s) New Routed to [facility] [id number] norgestimate-ethinyl estradiol (TriNessa oral tablet) 1 Tablet(s), Oral, once a day * You have let us know that you are not taking this medication as listed. Please talk with your primary care provider or the health care provider who prescribed the medication as soon as possible. Stop Taking the Following Medications: Medication list as of 03-15-14 12:15 Attention: If you have any medications at home that are not on this list, DO NOT take them until youcontact your provider for clarification. Give a copy of your medication list to your primary care provider. Update your medication list any time medications or doses are changed and carry your medication list at all times in case of emergency. Electronically Signed By: PAL ALCANTARA Signed On:15-MAR-2014 12:14:54 Your Allergies & Intolerances Substance Reaction Symptoms [...] appointment detail needed. Your Goals/Additional instructions: Source: [facility] POWERCHART Document Id: [id number] STAMP OPERATOR Miscellaneous - Pal Alcantara P.A.-C. - 03/15/2014 12:14 PM CST Ambulatory Discharge Medication List [facility] [address], [place] [id number] Visit Information Name: CLAUDIA MARTEL [facility] Number: [id number] Visit Date: 03/15/2014 12:14:58 Attending Provider: PAL ALCANTARA PAC Primary Care Provider: RIRI JAMESP CLAUDIA MARTEL has been given the following [...] hours as needed for Cough and congestion *albuterol (Ventolin 90 mcg/inh inhalation aerosol with adapter) amoxicillin-clavulanate (Augmentin 875 mg-125 mg oral tablet) 1 Tablet(s), Oral, two times a day x 10 day(s) [facility]ed to [facility] [address] [place] [address] norgestimate-ethinyl estradiol (TriNessa oral tablet) 1 Tablet(s), Oral, once a day * You have let us know that you are not taking this medication as listed. Please talk with your primary care provider or the health care provider who prescribed the medication as soon as possible. Stop Taking the Following Medications: Medication list as of 03-15-14 12:14 Attention: If you have any medications at home that are not on this list, DO NOT take them until youcontact your provider for clarification. Give a copy of your medication list to your primary care provider. Update your medication list any time medications or doses are changed and carry your medication list at all times in case of emergency. Electronically Signed By: PAL ALCANTARA PAC Signed On:15-MAR-2014 12:14:54 Additional Information: Source: [facility] POWERCHART Document Id: [id number] STAMP OPERATOR Miscellaneous - Jerilyn Forbes, R.N. 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 Entered On: 03/15/2014 11:53 FOIL STAMP OPERATOR Performed On: 03/15/2014 11:50 FOIL STAMP OPERATOR by JERILYN FORBSE Intake Chief Complaint : sore throat, coughing, ears feel plugged, headache, nasal drainage x 1 week Temperature Oral : 36.4 DegC(Converted to: 97.5 DegF) Peripheral Pulse Rate : 72 /min Respiratory Rate : 14 /min Systolic Blood Pressure : 112 mmHg Diastolic Blood Pressure : 60 mmHg NIBP Mean : 77 mmHg BP Location : Right upper extremity Blood Pressure Cuff Size : Regular Actual Weight : 55.7 kg(Converted to: 122 lb 13 oz) Dosing Weight Clinic : 55.7 kg JERILYN FORBES - 03/15/2014 11:50 FOIL STAMP OPERATOR General Info Languages : Occitan Is Patient Female and 13-50 no hysterectomy : Yes Status : Patient denies Are you ? : No JERILYN FORBES - 03/15/2014 11:50 FOIL STAMP OPERATOR Subjective Pain Symptoms : Yes JERILYN FORBES - 03/15/2014 11:50 FOIL STAMP OPERATOR Pain Pain Assessment Grid Pain 1 Location : Head JERILYN FORBES - 03/15/2014 11:50 FOIL STAMP OPERATOR Dependent Habits Tobacco Use/Currently Using : No Exposure to Tobacco Smoke : Other: Never Smoking Status : Never smoker JERILYN FORBES - 03/15/2014 11:50 FOIL STAMP OPERATOR ID Screen Travel Within Last 21 Days : No JERILYN FORBES - 03/15/2014 11:50 FOIL STAMP OPERATOR Source: [facility] POWERiConnect CRM Document Id: [id number] FOIL STAMP OPERATOR!30 STAMP OPERATOR documented in this encounter Plan of Treatment Not on filedocumented as of this encounter Visit Diagnoses Not on filedocumented in this encounter
--- OUTSIDE RECORDS SUMMARY | 2021-12-14 01:31 | XMS_ITS | Encounter Summary ---
:1990 Author Organization [facility] Address [address] [place] [address] Care Team Providers Name Role Phone Unavailable Primary Care Provider Unavailable Encounter Details Date Type Department Care Team Description 12/25/2014 Hospital Encounter HX [facility] INTERNMED Lee Mota, SERGE, C.N.P. [address] [place] [address] (Wo rk) Social History Tobacco [...] How often do you attend protestant or orthodox services? Never 03/05/2021 Do you belong to [...] Sign Reading Time Taken Comments Blood Pressure 108/72 12/25/2014 8:43 AM CDT Pulse 56 12/25/2014 8:43 AM CDT Temperature - - Respiratory Rate - - Oxygen Saturation - - Inhaled Oxygen Concentration - - Weight 53.8 kg (118 lb 9.7 oz) 12/25/2014 8:43 AM CDT Height 173 cm (5' 8.11) 12/25/2014 8:43 AM CDT Body Mass Index 17.98 12/25/2014 8:43 AM CDT documented in this encounter Medications at Time of Discharge Medication Sig Dispensed Refills Start Date End Date magnesium citrate 100 mg Take 300 mL by mouth 0 0 12/04/2014 03/10/2017 tablet as needed. documented as of this encounter Progress Notes Lee Mota, SERGE, C.N.P. - 12/25/2014 8:23 AM CDT [id number] CHIEF COMPLAINT/REASON FOR VISIT Check moles. HISTORY OF PRESENT ILLNESS Claudia is seen today to do a skin check of exposed areas as her twin sister was recently diagnosedwith skin cancer. The patient reports that she is uncertain of what type of skin cancer her sister was diagnosed with but she is needing to come back to receive more excision of the lesion. While the patient was in the room she attempted to text her sister to find out what she was told about the lesion and the only thing that the sister remembered was that it was something in-situ. Would make a presumption here that this would indicate a melanoma in-situ. The patient's sister's satellite communications operator had reported that other family members should have a skin check as well. Claudia reports that she does not notice any unusual or changing skin lesions. She has multiple small moles/freckles and 1 larger mole on the right roman catholic area that has been unchanged for years. If her sister was not diagnosed with her recent problem patient reports that she would have not come in for any type of mole evaluation. Thepatient does receive sun exposure. She considers herself an outdoorsy person, does attempt to use sunscreen whenever possible. MEDICATIONS Reviewed. No changes per EMR. ALLERGIES Zithromax. VITAL SIGNS Pulse 56, blood pressure 108/72, weight 53.8 kg. PHYSICAL EXAMINATION GENERAL: Well-developed female, no acute distress. Alert, oriented. SKIN: Skin check of the face, scalp, neck, back, exposed chest and abdomen reveal scattered small 1 to 2 mm nevi that are light brown in color. One larger 4 mm nevi of the right roman catholic is light brown in color with regular borders. IMPRESSION/REPORT/PLAN Skin nevi. Patient has multiple benign skin nevi that do not concern me on evaluation, 1 larger 1 onthe right roman catholic area that patient reports is unchanged for years. There is no irregularity to the borders, it has never bled and it has not changed color. The patient was educated today on skin care, using sunscreen, avoiding direct exposure to the sun specifically between the hours of 10 a.m. and 2 p.m. Also educated on potential worrisome findings that would be included but not limited to a mole that changes in size, shape or color, a mole that rises where no mole was previously present or any mole that bleeds. If she notices any findings that are even remotely concerning to her she is to return for a skin check again given her family history. Lee Mota, C.N.P./shaneka Electronically Signed By: LEE MOTA SOCIAL PROBLEMS SPECIALIST On: 12/31/2014 06:04 PM Source: [facility] MHSDOLBEYNONRADSYS Document Id: [id number] documented in this encounter Miscellaneous Notes Telephone Encounter - Conversion, Historical Provider Ser - 05/24/2015 11:25 AM CST *Phone Message- Chely Ricardo Document Contains Addenda Addendum by NICK FERNÁNDEZ LPN on 26 May 2015 15:41:07 ASSISTANT CENTER MANAGER Patient has been informed. She will be setting up an appt. with Chely. Addendum by BERNARDO ARCE on 26 May 2015 15:39:25 ASSISTANT CENTER MANAGER patient called back please call her at [phone] Addendum by NICK FERNÁNDEZ LPN on 26 May 2015 15:27:40 ASSISTANT CENTER MANAGER Left a message to call back Addendum by CHELY RICARDO PA-C on 24 May 2015 20:10:23 ASSISTANT CENTER MANAGER From: CHELY RICARDO PA-C To: [facility] 1 Nurse; Sent: 05/24/2015 20:10:23 ASSISTANT CENTER MANAGER Subject: RE: *Phone Message- Chely Luz Yes, can remove it for her if she prefers, otherwise could follow-up with Dr. Greenfield for removal. No consult needed for her to see me for removal. Addendum by COREEN ALFONSO LPN on 24 May 2015 11:51:06 ASSISTANT CENTER MANAGER From: COREEN ALFONSO LPN ([facility] 1 Nurse) To: CHELY RICARDO PA-C; Sent: 05/24/2015 11:51:06 ASSISTANT CENTER MANAGER Subject: FW: *Phone Message- Chely Ricardo Addendum by COREEN ALFONSO LPN on 24 May 2015 11:50:58 ASSISTANT CENTER MANAGER Please advise. From: EMILY MATTHEW ([facility] Med 2E Nurse) To: [facility] 1 Nurse; Sent: 05/24/2015 11:25:00 ASSISTANT CENTER MANAGER Subject: *Phone Message- Chely Ricardo Caller is: ( x) Patient ( ) Mother ( ) Father ( ) Spouse ( ) Daughter ( ) Son ( ) Pharmacy ( ) Other: Physician: Chely Ricardo Patient MRN #: Reason for Call: Message: S: Pt called clinic to talk to nurse B: would like to set up for mole removal on left back shoulder , saw Dr. Greenfield for this- is wondering if Chely Ricardo can remove and if consult is needed first A: R: Please call pt at [phone] Advice/Action: Source used: ( ) Verbalizes understanding [...] back cell phone number ( ) Source: [facility] [employer] Document Id: [id number] Miscellaneous - Lee Mota, SERGE, C.N.P. - 12/25/2014 9:26 AM CDT Ambulatory Patient Summary [address] [id number] Visit Information Name: CLAUDIA MARTEL [facility] Number: [id number] Current Date: 12/25/2014 09:26:10 Physicians Attending Provider: LEE MOTA SOCIAL PROBLEMS SPECIALIST Primary Care Provider: RIRI JAMES [facility] CLAUDIA MARTEL has been given the [...] the Following Medications: Medication list as of 12-25-14 09:26 Attention: If you have any medications at home that are not on this list, DO NOT take them until youcontact your provider for clarification. Give a copy of your medication list to your primary care provider. Update your medication list any time medications or doses are changed and carry your medication list at all times in case of emergency. Electronically Signed By: LEE MOTA SOCIAL PROBLEMS SPECIALIST Signed On:25-DEC-2014 09:26:01 Your Allergies & Intolerances Substance Reaction Symptoms [...] you dont have one. Go to [email or web address] and click on Create Your Account. Then, follow the directions to complete the online form. Youll be asked for your [facility] number which you can find at the top of this document. Your Goals/Additional instructions: Source: [facility] POWERCHART Document Id: [id number] Miscellaneous - Lee Mota APRN, C.N.P. - 12/25/2014 9:26 AM CDT Ambulatory Discharge Medication List [facility] [address] [place] [id number] Visit Information Name: CLAUDIA MARTEL [facility] Number: [id number] Visit Date: 12/25/2014 09:26:07 Attending Provider: LEE MOTA SOCIAL PROBLEMS SPECIALIST Primary Care Provider: RIRI JAMES CNP CLAUDIA [...] the Following Medications: Medication list as of 12-25-14 09:26 Attention: If you have any medications at home that are not on this list, DO NOT take them until youcontact your provider for clarification. Give a copy of your medication list to your primary care provider. Update your medication list any time medications or doses are changed and carry your medication list at all times in case of emergency. Electronically Signed By: LEE MOTA SOCIAL PROBLEMS SPECIALIST Signed On:25-DEC-2014 09:26:01 Additional Information: Source: [facility] [employer] Document Id: [id number] Miscellaneous - Meryl Davies L.P.N. 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 Intake/History Entered On: 12/25/2014 8:48 CDT Performed On: 12/25/2014 8:43 CDT by MERYL DAVIES LPN Intake Chief Complaint : check moles Peripheral Pulse Rate : 56 /min (LOW) Systolic Blood Pressure : 108 mmHg Diastolic Blood Pressure : 72 mmHg NIBP Mean : 84 mmHg BP Location : Right upper extremity Blood Pressure Cuff Size : Other: small Height : 173 cm(Converted to: 5 ft 8 inch(es), 68 inch(es)) Actual Weight : 53.8 kg(Converted to: 118 lb 10 oz) Dosing Weight Clinic : 53.8 kg Clinic BSA : 1.61 Body Mass Index : 17.98 kg/m2 MERYL DAVIES LPN - 12/25/2014 8:43 CDT General Info Information Given By : Patient Preferred Communication Mode : Verbal Languages : Botswanan Is Patient Female and 13-50 no hysterectomy : Yes Status : Patient denies Are you ? : No MERYL DAVIES LPN - 12/25/2014 8:43 CDT Subjective Pain Symptoms : No MERYL DAVIES LPN - 12/25/2014 8:43 CDT Dependent Habits Tobacco Use/Currently Using : No Exposure to Tobacco Smoke : Other: Never Smoking Status : Never smoker MERYL DAVIES LPN - 12/25/2014 8:43 CDT Source: [facility] [employer] Document Id: [id number] CDT!27 documented in this encounter Plan of Treatment Not on filedocumented as of this encounter Visit Diagnoses Not on filedocumented in this encounter
--- OUTSIDE RECORDS SUMMARY | 2021-12-14 01:31 | XMS_ITS | Encounter Summary ---
:1990 Author Organization [facility] Address [address] [place] [address] Care Team Providers Name Role Phone Unavailable Primary Care Provider Unavailable Encounter Details Date Type Department Care Team Description 07/06/2014 Hospital Encounter HX [facility] FAMILYPRA Riri James, SERGE, R.N. [address] [place] [address] (Wo rk) Social History Tobacco Use Types [...] week 03/05/2021 How often do you attend yazidi or roman catholic services? Never 03/05/2021 Do you belong to any clubs or organizations such as yazidi N o 03/05/2021 groups, unions, fraternal or [...] or slept in a detention (including now)? Sex Assigned at Date Recorded Female 01/16/2018 3:45 PM CDT documented as of this encounter Last Filed Vital Signs Vital Sign Reading Time Taken Comments Blood Pressure 106/58 07/06/2014 3:12 PM HOSPITALITY SERVICES MANAGER Pulse 68 07/06/2014 3:12 PM HOSPITALITY SERVICES MANAGER Temperature - - Respiratory Rate 20 07/06/2014 3:12 PM HOSPITALITY SERVICES MANAGER Oxygen Saturation - - Inhaled Oxygen Concentration - - Weight 55.2 kg (121 lb 11.1 oz) 07/06/2014 3:12 PM HOSPITALITY SERVICES MANAGER Height 173.1 cm (5' 8.15) 07/06/2014 3:12 PM HOSPITALITY SERVICES MANAGER Body Mass Index 18.42 07/06/2014 3:12 PM HOSPITALITY SERVICES MANAGER documented in this encounter H&P Notes Riri James, SERGE, R.N. - 07/06/2014 2:58 PM CST [id number] CHIEF COMPLAINT/REASON FOR VISIT Health maintenance and refill on control. HISTORY OF PRESENT ILLNESS Louise is a 24-year-old young woman here for refill on her TriNessa control pill. SYSTEMS REVIEW She states she is feeling excellent. No concerns whatsoever with respiratory, cardiovascular, musculoskeletal, or neurologic issues. She does have a past medical history of bronchospastic cough and does have an albuterol inhaler in a drawer at home in case she needs it but really has not used it in a long time. She has also been taking the Naprosyn because her wrist got injured and that was just a couple weeks ago but she said it is doing fine now. She also is in a long-term relationship, living with her boyfriend. 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 Drinks alcohol intermittently, maybe a glass of wine a month. Otherwise no other routine caffeine. MEDICATIONS Reviewed. ALLERGIES Reviewed. VITAL SIGNS Reviewed. PHYSICAL EXAMINATION GENERAL: Alert, interactive, very pleasant, very thin young woman. Her BMI is less than 19. HEENT: Head is normocephalic. Eyes, PERRLA. Nares moist. Throat is nonerythematous. Tympanic membranes clear. NECK: Supple. LUNGS: Clear. No wheezes, rales, rhonchi. HEART: Rate regular. Rhythm regular. S1, S2 heard without murmur. ABDOMEN: Soft, nondistended. No splenomegaly, masses, guarding, rebound pain. PERIPHERAL EXTREMITIES: Without clubbing, cyanosis, edema, or vascular insufficiency. NEUROLOGIC: Cranial nerves II to XII grossly intact. Deep tendon reflexes, somewhat flat actually. Strength in upper and lower extremities is excellent. IMPRESSION/REPORT/PLAN 1. General health maintenance. Healthy 24-year-old young woman. 2. Refill of TriNessa control. 3. Low body mass index, less than 19. PLAN: We did discuss continuing on the oral control. No changes. Increasing nutritional routine along with her high physical activity. She states she is doing some body building now so increasingher protein. Also I hesitated to take the albuterol off her list completely and that was ordered by a previous encounter and I think what we will do is just leave it there and if she has any difficultywith breathing will discuss a plan at that time. No further recommendations for labs today. She willreturn in 1 year for her Pap smear, and sometime in the next few years, a screening baseline cholesterol would be helpful and she agrees with plan. Will follow as directed. Riri James A.P.R.N./shaneka Electronically Signed By: RIRI JAMES [facility] On: 07/07/2014 01:16 PM Source: [facility] MHSDOLBEYNONRADSYS Document Id: [id number] ITALITY SERVICES MANAGER documented in this encounter Miscellaneous Notes Miscellaneous - Riri James APRN RJaguar - 07/06/2014 3:31 PM CST Ambulatory Patient Summary [facility] [address] [place] [id number] Visit Information Name: CLAUDIA MARTEL [facility] Number: [id number] Current Date: 07/06/2014 15:31:46 Physicians Attending Provider: RIRI JAMES Primary Care Provider: RIRI JAMES CLAUDIA MARTEL has been given the following [...] tablet) 1 Tablet(s), Oral, once a day Routed to [facility] [address] [place], [place] [id number] Stop Taking the Following Medications: Medication list as of 07-06-14 15:31 Attention: If you have any medications at home that are not on this list, DO NOT take them until youcontact your provider for clarification. Give a copy of your medication list to your primary care provider. Update your medication list any time medications or doses are changed and carry your medication list at all times in case of emergency. 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 Your Goals/Additional instructions: Source: [facility] POWERCHART Document Id: [id number] ITALITY SERVICES MANAGER Miscellaneous - Riri James APRN, R.N. - 07/06/2014 3:31 PM CST Ambulatory Discharge Medication List [facility] [address] [place], [place] [address], [place] [id number] Visit Information Name: CLAUDIA MARTEL [facility] Number: [id number] Visit Date: 07/06/2014 15:31:44 Attending Provider: RIRI JAMES Primary Care Provider: RIRI JAMES CLAUDIA MARTEL has been given the following [...] tablet) 1 Tablet(s), Oral, once a day Routed to [facility] [address] [place] [id number] Stop Taking the Following Medications: Medication list as of 07-06-14 15:31 Attention: If you have any medications at home that are not on this list, DO NOT take them until youcontact your provider for clarification. Give a copy of your medication list to your primary care provider. Update your medication list any time medications or doses are changed and carry your medication list at all times in case of emergency. Electronically Signed By: RIRI JAMES Signed On:06-JUL-2014 15:31:37 Additional Information: Source: 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/History Entered On: 07/06/2014 15:14 HOSPITALITY SERVICES MANAGER Performed On: 07/06/2014 15:12 HOSPITALITY SERVICES MANAGER by MANDA HARRISON Intake Chief Complaint : physical Temperature Oral : 36.5 DegC(Converted to: 97.7 DegF) Peripheral Pulse Rate : 68 /min Respiratory Rate : 20 /min Heart Rhythm : Regular Systolic Blood Pressure : 106 mmHg Diastolic Blood Pressure : 58 mmHg NIBP Mean : 74 mmHg BP Location : Right upper extremity Blood Pressure Cuff Size : Regular Height : 173.1 cm(Converted to: 5 ft 8 inch(es), 68 inch(es)) Actual Weight : 55.2 kg(Converted to: 121 lb 11 oz) Weight Source : Standing scale Dosing Weight Clinic : 55.2 kg Clinic BSA : 1.63 Body Mass Index : 18.42 kg/m2 MANDA HARRISON - 07/06/2014 15:12 HOSPITALITY SERVICES MANAGER General Info Information Given By : Patient Preferred Communication Mode : Verbal Languages : Dominican Is Patient Female and 13-50 no hysterectomy : Yes Status : Patient denies Are you ? : No MANDA HARRISON - 07/06/2014 15:12 HOSPITALITY SERVICES MANAGER Subjective Pain Symptoms : No MANDA HARRISON - 07/06/2014 15:12 HOSPITALITY SERVICES MANAGER Dependent Habits Tobacco Use/Currently Using : No Exposure to Tobacco Smoke : Other: Never Smoking Status : Never smoker MANDA HARRISON - 07/06/2014 15:12 HOSPITALITY SERVICES MANAGER ID Screen Travel Within Last 21 Days : No Contact with someone with Ebola : No MANDA HARRISON - 07/06/2014 15:12 HOSPITALITY SERVICES MANAGER Source: [facility] POWERCHART Document Id: [id number] HOSPITALITY SERVICES MANAGER!34 ITALITY SERVICES MANAGER Miscellaneous - Manda Harrison L.PSymoneNSymone - 07/06/2014 3:12 PM CST Health Assessment Health Assessment Entered On: 07/06/2014 15:14 HOSPITALITY SERVICES MANAGER Performed On: 07/06/2014 15:12 HOSPITALITY SERVICES MANAGER by MANDA HARRISON Health Assessment Complete Health Assessment Complete or Modified : Annual Health Assessment Annual Health Assessment Completed : Yes MANDA HARRISON - 07/06/2014 15:12 HOSPITALITY SERVICES MANAGER Nutrition Nutrition Risk Factors by History Adult : None MANDA HARRISON - 07/06/2014 15:12 HOSPITALITY SERVICES MANAGER Functional Current Daily Living Assistance : None MANDA HARRISON - 07/06/2014 15:12 HOSPITALITY SERVICES MANAGER Dependent Habits Tobacco Use/Currently Using : No Exposure to Tobacco Smoke : Other: Never Smoking Status : Never smoker MANDA HARRISON - 07/06/2014 15:12 HOSPITALITY SERVICES MANAGER Psychosocial Domestic Abuse Concerns : None Jew Preference : No qualifying data available. MANDA HARRISON - 07/06/2014 15:12 HOSPITALITY SERVICES MANAGER Advance Directive Advanced Directives : No Advance Directive Additional Information : No MANDA HARRISON - 07/06/2014 15:12 HOSPITALITY SERVICES MANAGER Educ Needs Learning Style Preference Adult Grid Patient : Demonstration Family : None MANDA HARRISON - 07/06/2014 15:12 HOSPITALITY SERVICES MANAGER Source: [facility] POWERCHART Document Id: [id number] HOSPITALITY SERVICES MANAGER!22 ITALITY SERVICES MANAGER documented in this encounter Plan of Treatment Not on filedocumented as of this encounter Visit Diagnoses Not on filedocumented in this encounter
--- OUTSIDE RECORDS SUMMARY | 2021-12-14 01:31 | XMS_ITS | Encounter Summary ---
:1990 Author Organization [facility] Address [address] [place] [address] Care Team Providers Name Role Phone Unavailable Primary Care Provider Unavailable Encounter Details Date Type Department Care Team Description 04/17/2015 Hospital Encounter HX NO MAPPING Rafiq Allen P.A.-C. [address] [place], [place] [phone] (Wo rk) Social History [...] week 03/05/2021 How often do you attend taoism or scientology services? Never 03/05/2021 Do you belong to any clubs or organizations such as taoism N o 03/05/2021 groups, unions, fraternal or [...] Miscellaneous - Conversion, Historical Provider Ser - 04/17/2015 11:59 PM BULLET MAKER Coding Summary-Paper Based CODING DATE: 05/27/2015 FINAL [facility] STATUS: * Discharged to Home or [...] terminology. Coded By: SILVANO HANNAH Date Saved: 05/26/2015 08:39 am [facility] Document Id: [id number] documented in this encounter Plan of Treatment Not on filedocumented as of this encounter Visit Diagnoses Not on filedocumented in this encounter
--- OUTSIDE RECORDS SUMMARY | 2021-12-14 01:31 | XMS_ITS | Encounter Summary ---
:1990 Author Organization [facility] Address [address] [place] [address] Care Team Providers Name Role Phone Unavailable Primary Care Provider Unavailable Encounter Details Date Type Department Care Team Description 12/24/2015 Hospital Encounter HX [facility] Lillie Gonzalez, P.A. [address] [place] [address] HARRY Liu [phone] (Wo rk) Social History Tobacco Use Types [...] week 03/05/2021 How often do you attend restoration or mosque services? Never 03/05/2021 Do you belong to any clubs or organizations such as restoration N o 03/05/2021 groups, unions, fraternal or [...] or slept in a alf (including now)? Sex Assigned at Date Recorded [...] of this encounter Miscellaneous Notes Miscellaneous - Simi Ricardo - 12/24/2015 1:16 PM CDT Normal Results Letter December 24, 2015 CLAUDIA MARETL [address] [place] [address] Dear CLAUDIA MARTEL, Below, you will find the results of your recent lab work. Your TSH (thyroid screening lab) was normal. Your choelsterol looks great. Your fasting glucose (diabetes screening) was minimally elevated. Please follow up with us as we discussed during your visit or sooner if you have any concerns. If you have questions or concerns, please do not hesitate to call our office. Result Name Current Result Normal Range Glucose Fasting (mg/dL) (H) 103 12/24/2015 70 - 99 Cholesterol (mg/dL) 196 12/24/2015 - <=199 Trig (mg/dL) 73 12/24/2015 - <=149 LDL Calculated (mg/dL) 85 12/24/2015 - <=129 Chol/HDL Ratio 2.04 12/24/2015 LDL/HDL 1 12/24/2015 TSH (mIU/L) 2.66 12/24/2015 0.27 - 4.20 Sincerely, SIMI RUESCHEN[address] [address] Electronic Signature Electronically Signed By: SIMI RICARDO PA-C On: December 24, 2015 This document has images extracted. Source: [facility] POWERCHART Document Id: [id number] Electronically signed by Conversion, [facility] Lodging House Keeper [id number] at 10/01/2016 1:08 AM CDT documented in this encounter Plan of Treatment Not on filedocumented as of this encounter Procedures Procedure Name Priority Date/Time Associated Diagnosis Comme nts THYROID-STIMULATING Routine 12/24/2015 7:26 AM Re sults for this HORMONE-SENSITIVE CDT procedure are in (S-TSH) the results section. documented in this encounter Results Thyroid-Stimulating Hormone-Sensitive (s-TSH) (12/24/2015 7:26 AM CDT) P athologist Signature TSH 2.66 0.27 - 4.20 POWERCHART (Thyrotropin) MIUL Comment: Biotin has been identified by the markos candelario as a potential interfering substance. Higher concentrations of biotin may be found in multivitamins, hair/nail supplements, and workout supplements. If the result does not match clinical observat ions, repeat testing after patient refrains from the use of supplements for at least 12 hours. Specimen (Source) Anatomical Collection Method Collection Time Re ceived Time Location / / Volume Laterality Blood 12/24/2015 7:26 AM CDT Simi Sepulveda LAB BLOOD ADD-ON Performing Organization Address City/State/ZIP Code Phon e Number POWERCHART documented in this encounter Visit Diagnoses Not on filedocumented in this encounter
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
--- OUTSIDE RECORDS SUMMARY | 2021-12-14 01:31 | XMS_ITS | Encounter Summary ---
:1990 Author Organization [facility] Address [address] [place] [address] Care Team Providers Name Role Phone Unavailable Primary Care Provider Unavailable Encounter Details Date Type Department Care Team Description 05/21/2015 Hospital Encounter HX [facility] Bisi Greenfield M.D. [address] [facility], [address] [place], [place] [address] (Wo rk) Social History Tobacco Use Types [...] week 03/05/2021 How often do you attend adventism or pentecostalism services? Never 03/05/2021 Do you belong to any clubs or organizations such as adventism N o 03/05/2021 groups, unions, fraternal or [...] Sign Reading Time Taken Comments Blood Pressure 116/72 05/21/2015 4:13 PM [employer] Pulse 60 05/21/2015 4:13 PM [employer] Temperature - - Respiratory Rate 14 05/21/2015 4:13 PM [employer] Oxygen Saturation - - Inhaled Oxygen Concentration - - Weight 47.5 kg (104 lb 11.5 oz) 05/21/2015 4:13 PM [employer] Height 173 cm (5' 8.11) 05/21/2015 4:13 PM [employer] Body Mass Index 15.87 05/21/2015 4:13 PM [employer] documented in this encounter Medications at Time of Discharge Medication Sig Dispensed Refills Start Date End Date magnesium citrate 100 mg Take 300 mL by mouth 0 0 12/04/2014 03/10/2017 tablet as needed. documented as of this encounter Progress Notes Wale Greenfield M.D. - 05/21/2015 4:19 PM CST Clinic Full Note CHIEF COMPLAINT/REASON FOR VISIT FSE scheduled by her PCP HISTORY OF PRESENT ILLNESS twin sister had MM in situ on her shoulder this past sunmmer, Alia Toussaint was PCP She would like a full skin check Some tannin bed use in high school- No blistering ann No thyroid disorders in family using sunscreen MEDICATIONS Calcium 500+D, 1 tab(s), PRN Dayquil Liquicaps, 2 cap(s), PO, q4hr, PRN Elidel 1% topical cream, 1 mery, Topical, 2xDay, 1 refills magnesium citrate, 300 mL, Restless legs, PO, PRN naproxen 500 mg oral tablet, 500 mg, 1 tab(s), PO, 2xDay, 0 refills TriNessa oral tablet, 1 tab(s), PO, Daily, 3 refills ALLERGIES Zithromax Z-Juan (rash) PAST MEDICAL HISTORY Chronic Body Mass Index (BMI) Less Than 19 Adult Cough Bronchospastic Dermatitis Eyelid NOS Exam General Medical NOS (GME) General examination of patient History of PDA WITH SURGICAL REPAIR Oral contraception Revision septoplasty Whiplash Historical No [...] forintramuscular use (Week of 10/01/2002). SOCIAL HISTORY No Data Available FAMILY HISTORY No qualifying data available. SYSTEMS REVIEW otherwise negative VITAL SIGNS T: 36.6 ??C (Core) HR: 60 RR: 14 BP: 116 / 72 HT: 173 cm WT: 47.5 kg BMI: 15.87 PHYSICAL EXAMINATION General: No acute distress Eyes- tom at 12:00 left eye- Oropharnyx- no oral lesions or changes in pigmentation Thyroid- normal Skin: Full skin check today of the scalp, face, neck, chest, breasts, back, arms, legs, buttocks, groin, hands and feet. Noted a 3 x2.5 mm area on the left upper back, irregular borders and different colors- flat, Pictures taken of skin lesions and will be uploaded to [employer] scalp noted to be pink and flakey (patient notes no itching though) Dermatoscope used to check moles- Many moles noted IMPRESSION/REPORT/PLAN Lesion Skin Back Total of 25 minutes spent with patient, over 15 minutes spent on counseling time regarding discussing plan and treatment options. Left upper back mole to remove- please schedule an excisional removal. Family history of melanoma: Recommend another full skin check in 6 months then yearly skin exams. Watch for ABCDEs of moles & be seen if noticing any of the following: new pink & scaley lesions. A asymmetry, B Border - irregular or scalloped, C color change, D Diameter increase or more than cm, E enlargement or elevation . Yearly eye exams with eye doctor recommended to rule out ocular nevi and check pigmented area left eye- . Sunscreen/sunblock spf 30+ and wide-brimmed hats recommended to limit sun exposure. All 1st degree relatives should have a full skin check yearly. Orders: [facility] Electronically Signed By: WALE GREENFIELD MD On: 05/23/2015 01:05 PM Source: [facility] POWERCHART Document Id: [id number] [employer] documented in this encounter Nursing Notes Wale Greenfield M.D. - 05/21/2015 4:40 PM CST Ambulatory Patient Education The following Patient Education Materials have been given to the patient: Patient Education Materials: Dermatology (Skin Cancer) Monthly Mole Check Chart Dermatology (Skin Cancer) Monthly Mole Check Chart To do your monthly mole check, make copies of this chart. Then, fill in the date, the number of moles on each part of your body, and a description of each mole. Be sure to use the ABCDEs of skin checks. This means checking moles for Asymmetry, Border, Color, Diameter, and Evolving (changing). Keep allof your completed charts and use them to track changes in your moles over time. Seeking Medical Treatment See your doctor if your moles hurt, itch, ooze, bleed, thicken, or become crusty. Call your doctor if your moles show signs of melanoma. These include a mole that has: ?? Asymmetry: the sides of the mole dont match ?? Border: the edges are ragged, notched, or blurred ?? Color: the color within the mole varies ?? Diameter: the mole is larger than 6 mm (size of a pencil eraser) ?? Evolving: the mole is getting larger or the shape or color of the mole is changing ?? [id number] [facility], [address] [place] [address]. All rights reserved. This information is not intended as a substitute for professional medical care. Always follow your healthcare professional's instructions. This document has images extracted. Please consider using [email or web address] for all your patient education needs. Source: [place] Document Id: [id number] [employer] documented in this encounter Miscellaneous Notes Telephone Encounter - Conversion, Historical Provider Ser - 08/18/2015 11:43 AM CDT *Phone Message/[employer] Document Contains Addenda Addendum by NAEEM SIMON LPN on August 18, 2015 16:36:45 CDT Patient notified Addendum by NAEEM SIMON LPN on August 18, 2015 14:12:38 CDT left message to call us back From: REKHA PATIÑO ( Family Med 1 Nurse) To: Family Med 1 Nurse; Sent: 08/18/2015 11:43:55 CDT Subject: *Phone Message/[employer] Caller is: ( x ) Patient ( ) Mother ( ) Father ( ) Spouse ( ) Daughter ( ) Son ( ) Pharmacy ( ) Other: Physician: Patient MRN #: Reason for Call: pt is returning call, please call her back at [phone] Message: Advice/Action: Source used: ( ) Verbalizes understanding [...] back cell phone number ( ) Source: [facility] [email or web address] Document Id: [id number] Miscellaneous - Wale Greenfield M.D. - 05/21/2015 4:56 PM CST Ambulatory Patient Summary [address] [id number] Visit Information Name: CLAUDIA MARTEL [facility] Number: [id number] Current Date: 05/21/2015 16:56:48 Physicians Attending Provider: WALE GREENFIELD MD Primary Care Provider: PCP, ELSEWHERE CLAUDIA MARTEL has been given the following [...] the Following Medications: Medication list as of 05-21-15 16:56 Attention: If you have any medications at home that are not on this list, DO NOT take them until youcontact your provider for clarification. Give a copy of your medication list to your primary care provider. Update your medication list any time medications or doses are changed and carry your medication list at all times in case of emergency. Electronically Signed By: WALE GREENFIELD MD Signed On:21-MAY-2015 16:39:29 Your Allergies & Intolerances Substance Reaction Symptoms [...] Your Upcoming Appointments Date Time Location Provider 06/18/2015 15:45 [facility] [place] [facility], Wale Harvey Attention: Contact your local Clinic if further appointment detail needed. Monthly Mole Check Chart To do your monthly mole check, make copies of this chart. Then, fill in the date, the number of moles on each part of your body, and a description of each mole. Be sure to use the ABCDEs of skin checks. This means checking moles for Asymmetry, Border, Color, Diameter, and Evolving (changing). Keep allof your completed charts and use them to track changes in your moles over time. Seeking Medical Treatment See your doctor if your moles hurt, itch, ooze, bleed, thicken, or become crusty. Call your doctor if your moles show signs of melanoma. These include a mole that has: ?? Asymmetry: the sides of the mole dont match ?? Border: the edges are ragged, notched, or blurred ?? Color: the color within the mole varies ?? Diameter: the mole is larger than 6 mm (size of a pencil eraser) ?? Evolving: the mole is getting larger or the shape or color of the mole is changing ?? [id number] [place] [address]. All rights reserved. This information is not [...] if you dont have one. Go to [email or web address] and click on Create Your Account. Then, follow the directions to complete the online form. Youll be asked for your [facility] number which you can find at the top of this document. Your Goals/Additional instructions: 1. Left upper back mole to remove- please schedule an excisionalremoval. Family history of melanoma: Recommend another full skin check in 6 months then yearly skin exams. Watch for ABCDEs of moles & be seen if noticing any of the following: new pink & scaley lesions. A asymmetry, B Border - irregular or scalloped, C color change, D Diameter increase or more than ?? cm, E enlargement or elevation. Yearly eye exams with eye doctor recommended to rule out ocular nevi. Sunscreen/sunblock spf 30+ and wide-brimmed hats recommended to limit sun exposure. All 1st degree relatives should have a full skin check yearly. This document has images extracted. Please consider using [email or web address] for all your patient education needs. Source: [facility] POWERCHART Document Id: [id number] [employer] Miscellaneous - Wale Greenfield M.D. - 05/21/2015 4:56 PM CST Ambulatory Discharge Medication List [address] [id number] Visit Information Name: CLAUDIA MARTEL [facility] Number: [id number] Visit Date: 05/21/2015 16:56:45 Attending Provider: WALE GREENFIELD MD Primary Care Provider: PCP, ELSEWHERE CLAUDIA MARTEL has been given the following [...] the Following Medications: Medication list as of 05-21-15 16:56 Attention: If you have any medications at home that are not on this list, DO NOT take them until youcontact your provider for clarification. Give a copy of your medication list to your primary care provider. Update your medication list any time medications or doses are changed and carry your medication list at all times in case of emergency. Electronically Signed By: WALE GREENFIELD MD Signed On:21-MAY-2015 16:39:29 Additional Information: Source: [facility] POWERCHART Document Id: [id number] [employer] Miscellaneous - Duran Orr C.MMaryan - 05/21/2015 4:13 PM CST Adult Patient Case Manager Intake/History Adult Patient Case Manager Intake/History Entered On: 05/21/2015 16:17 [employer] Performed On: 05/21/2015 16:13 [employer] by [facility] Intake Chief Complaint : FSE scheduled by her PCP [facility] - 05/21/2015 16:17 [employer] Temperature Core : 36.6 DegC(Converted to: 97.9 DegF) Peripheral Pulse Rate : 60 /min Respiratory Rate : 14 /min Heart Rhythm : Regular Systolic Blood Pressure : 116 mmHg Diastolic Blood Pressure : 72 mmHg NIBP Mean : 87 mmHg BP Location : Left upper extremity Blood Pressure Cuff Size : Regular Height : 173 cm(Converted to: 5 ft 8 inch(es), 68 inch(es)) Actual Weight : 47.5 kg(Converted to: 104 lb 12 oz) Weight Source : Standing scale Dosing Weight Clinic : 47.5 kg Clinic BSA : 1.51 Body Mass Index : 15.87 kg/m2 [facility] - 05/21/2015 16:13 [employer] General Info Information Given By : Patient Languages : Greenlandic Is Patient Female and 13-50 no hysterectomy : Yes Status : Patient denies Are you ? : No [facility] - 05/21/2015 16:13 [employer] Subjective Pain Symptoms : No [facility] - 05/21/2015 16:13 [employer] Dependent Habits Exposure to Tobacco Smoke : Other: Never Smoking Status : Never smoker Tobacco 2A : No Tobacco Use/Currently Using : No Tobacco Use/Last 30 Days : No Tobacco Use/Last 12 months : No [facility] - 05/21/2015 16:13 [employer] Source: [facility] POWERCHART Document Id: [id number] [employer] documented in this encounter Plan of Treatment Not on filedocumented as of this encounter Visit Diagnoses Not on filedocumented in this encounter
--- OUTSIDE RECORDS SUMMARY | 2021-12-14 01:31 | XMS_ITS | Encounter Summary ---
:1990 Author Organization [facility] Address [address] [place] [address] Care Team Providers Name Role Phone Unavailable Primary Care Provider Unavailable Encounter Details Date Type Department Care Team Description 12/17/2015 Hospital Encounter HX [facility] Chely Gonzalez, P.A. [address] [place] [address] HARRY Liu [phone] (Wo rk) Social History Tobacco Use Types [...] How often do you attend holiness or denominational services? Never 03/05/2021 Do you belong to [...] Sign Reading Time Taken Comments Blood Pressure 108/64 12/17/2015 9:23 AM CDT Pulse 80 12/17/2015 9:23 AM CDT Temperature - - Respiratory Rate - - Oxygen Saturation - - Inhaled Oxygen Concentration - - Weight 54.2 kg (119 lb 7.8 oz) 12/17/2015 9:23 AM CDT Height 173 cm (5' 8.11) 12/17/2015 9:23 AM CDT Body Mass Index 18.11 12/17/2015 9:23 AM CDT documented in this encounter Medications at Time of Discharge Medication Sig Dispensed Refills Start Date End Date magnesium citrate 100 Take 300 mL by mouth 0 11/0603/10/2017 mg tablet as needed. pimecrolimus (ELIDEL) 1 Apply 1 application 0 04/201603/21/2021 % cream topically 2 (two) times a day. Patient stated she uses as needed documented as of this encounter H&P Notes Chely Escobar - 12/17/2015 9:08 AM CDT [id number] CHIEF COMPLAINT/REASON FOR VISIT Healthcare maintenance. HISTORY OF PRESENT ILLNESS Claudia is a 27-year-old female who presents to the clinic today for routine healthcare maintenanceexamination. Overall she states that she is feeling well, although she does like to discuss some increased shortness of breath with exercise. She states that when she was much younger, in middle schooland early high school, she did have sports induced bronchospasm, for which she used Advair and albuterol. She states that in high school, she noted that she no longer needed her Advair or albuterol while running track. She has not used it since then. She states that she was very active in high school,playing basketball, volleyball and running track without issues. She does exercise regularly. 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 She states that she has trained for half marathons and has had no trouble with her breathing. Over the past 3 to 4 months, she has noticed that it has been harder for her to get her breath while exercising. She states that while she was running previously 10 to 12 miles a day without shortness of breath, she is now running at most 5 to 6 miles per day at aslower pace and finds that it is hard for her to catch her breath when she is done. No significant symptoms at rest. She states that every once in a while at home when she is doing homework she may notice that she has to all of a sudden take a deep breath, but then she is fine. She states that when she runs, her pace has gotten slower. Before she was running an 8 minute mile, now she is running a 9 minute 30 second mile and finds it difficult to catch her breath when she is done. No chest pain or tightness. No lower extremity edema. No history of cough. No dizziness, palpitations. Occasionally she might feel a little bit wheezy. No recent illness. She is requesting a refill of her control pill. She is using TriNessa. She is having regular, monthly periods, lasting 4 to 6 days and fairly light. Last menstrual period started on 11/29/2015. She also has been prescribed Elavil cream by Dermatology for eyelid pruritus. She has found this to be helpful. MEDICATIONS Elavil 0.1% topical cream 2 times daily. TriNessa control pill by mouth daily. Calcium 500 plus D by mouth daily. Magnesium citrate by mouth as needed for restless legs. Cell Activator Herbalife by mouth 3 times daily. Herbalife multivitamin by mouth 3 times daily. ALLERGIES Zithromax. SYSTEMS REVIEW GENERAL: Negative for recent fever, weight loss, extreme fatigue. EYES: Negative for double vision, sudden loss of vision. ENT: Negative for sore throat, runny nose, ear pain, hearing loss. HEART: Negative for chest pain, pain in legs relieved with rest, irregular heartbeats. RESPIRATORY: See HPI for description of wheezing and shortness of breath. Negative for cough, excessive snoring. GASTROINTESTINAL: Negative for nausea, vomiting, heartburn, abdominal pain, bloating, constipation, diarrhea, blood in stools. GENITOURINARY: LMP of November 29, 2015. Negative for irregular menses, vaginal bleeding after menopause, frequent or painful urination, bloody urine. SKIN: Negative for rash, sore(s), excessive bruising, change of a mole. NEUROLOGICAL: Negative for headache, persistent weakness or numbness onone side of the body, falling. MUSCULOSKELETAL: Negative for joint pain, muscle weakness, back pain.MENTAL HEALTH: Negative for depression, anxiety, suicidal thoughts. LYMPHATICS: Negative for excessive thirst or urination, cold or heat intolerance, breast mass, swelling in legs, feet or hands. BLOOD: Negative for unusual bruising or bleeding, enlarged lymph nodes. PAST MEDICAL/SURGICAL HISTORY 1. 0. 2. Exercise-induced asthma in childhood. 3. Mononucleosis in 2004. 4. Status post septoplasty in 2004. 5. She and twin sister were born 3 months prematurely, spent 3 months in the NICU. Both were noted to have a patent ductus arteriosus and did undergo surgical repair at 12 days old. SOCIAL HISTORY Claudia is engaged. She lives in [place]. 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 She is also going to get her master's degree from [employer]. She denies any alcohol, tobacco use or illicit drug use. She does feel thatmiki is doing very well in terms of her diet. 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 FAMILY HISTORY Mother - healthy. Father - healthy. Twin sister - melanoma. Paternal grandmother with diabetes. No known family history of thyroid disorder, coronary artery disease, breast cancer, or colon cancer. VITAL SIGNS Weight 54.2 kg. Body mass index 18.11 kg/sq m. Pulse 80 per minute. Blood pressure 108/64. PHYSICAL EXAMINATION GENERAL: Alert and oriented female. Well developed and thin, and in no acute distress. SKIN: Intact without suspicious rash or lesion. EYES: Pupils equal and reactive to light. Extraocular muscle function intact bilaterally. ENT: TMs are clear and nonerythematous. Oral mucosa is moist and pink. Posterior pharynx negative for edema, erythema or exudate. NECK: Supple. LYMPH NODES: No palpable anterior or posterior cervical lymphadenopathy. No supraclavicular lymphadenopathy. THYROID: No thyromegaly or mass. BREASTS: Normal breast tissue. No mass or lump. HEART: Regular rate and rhythm. S1, S2, without murmur. LUNGS: Clear to auscultation bilaterally. No wheezes or crackles. Normal respiratory effort. O2 saturation is 97% on room air. Easy, nonlabored breathing. She does have prominent pectus excavatum. ABDOMEN: Soft and nondistended. Nontender. No palpable mass or organomegaly. PELVIS: Normal external female genitalia. Cervix is visualized, normal appearing and not inflamed. Bimanual exam has normal uterus and ovaries. No cervical motion tenderness. No adnexal mass or pain. EXTREMITIES: No edema. Full range of motion of all extremities. SPINE: No tenderness to palpation of the cervical, thoracic, or lumbar spine. JOINTS: No effusions. MENTAL STATUS: Patient is pleasant. Good eye contact. Appropriate mood and affect. Normal judgment and insight. NEUROLOGIC: Cranial nerves II through XII are gross intact. No focal deficit. DTRs 2+ in all extremities. Sensation is intact. IMPRESSION/REPORT/PLAN 1. Healthcare maintenance. 2. Contraception counseling and management. 3. Eyelid pruritus. 4. Increased shortness of breath with exercise. PLAN: 1. Items reviewed today include healthy diet and exercise. Pap smear today is pending. She has neverhad an abnormal Pap smear. As long as today's Pap smear is normal, recommend next Pap smear in 3 years. Recommend start mammograms at age 40, sooner if there is a change to personal or family history. Last tetanus was given in 2013. I do recommend annual flu shots. She is not currently fasting but orders have been placed for her to return for fasting lipid panel and glucose and she will be notified of results when those are available. 2. TriNessa control pill has been refilled for the year. 3. Elavil has been refilled. This has previously been sent by Dermatology to mail order. She has recently learned that this pharmacy is no longer mailing prescriptions. Therefore [facility] She will let me know if it is too expensive there. 4. Chest x-ray, CBC, D-dimer and EKG today are pending. She will be notified of results when those are available. I will make further recommendations, pending results of the above. Melvi Luevano Electronically Signed By: CHELY ESCOBAR PA-C On: 01/12/2016 04:37 PM Source: [facility] MHSDOLBEYNONRADSYS Document Id: [id number] documented in this encounter Miscellaneous Notes Miscellaneous - Mamie Pulido LSymoneP.N. - 01/11/2016 10:10 AM CDT Custom Result Letter January 11, 2016 CLAUDIA MATREL [address] [place] [address] Dear CLAUDIA MARTEL, As we previously spoke on the phone, Chely Escobar reviewed your Pap results and it showed some mildly abnormal cervical cell with a Positive result for HPV. Chely would like you to meet with gynecology to be further evaluated. I have provided an informational pamphlet about a procedure called a colposcopy. This procedure may be done to further evaluated why you had an abnormal pap results. I have also provided a printed handout and highlighted information about cervical screening results. If you have any question please do not hesitate to call. Thank you, and I hope you find this information helpful. Family Practice, Chely Escobar: IT ARCHITECT, Gynecology: Sincerely, MAMIE PULIDO Electronic Signature Electronically Signed By: MAMIE PULIDO LPN On: January 11, 2016 This document has images extracted. Source: [facility] POWERCHART Document Id: [id number] Miscellaneous - Chely Escobar - 01/05/2016 9:48 AM CDT Results Notification Document Contains Addenda Addendum by MAMIE PULIDO LPN on January 11, 2016 10:14:40 CDT Patient informed, letter mailed to patient, along with educational handouts about abnormal cervicalcancer screening results and colposcopy procedure. Addendum by MOLLY DORAN LPN on January 06, 2016 08:55:45 CDT LMTCB From: CHELY ESCOBAR PA-C To: [facility] 1 Nurse; Sent: 01/05/2016 09:48:41 CDT ! Show up: 01/05/2016 09:48:41 CDT Subject: Results Notification Actions: Notify patient of results Reminder Comments: Pap revealed some mildly abnormal cervical cells, and also tested positive for HPV. Therefore, recommend Strainer Cleaner consult for consideration of colposcopy for further evaluation. Results: Date Result Type Result Name 01/05/2016 9:46 Document - DOC COMMERCIAL HOUSEKEEPER Cytology. Source: [facility] Everpay Document Id: [id number] Electronically signed by Conversion, [facility] Unloading Checker [id number] at 10/01/2016 2:43 AM CDT Telephone Encounter - Conversion, Historical Provider Ser - 12/20/2015 3:32 PM CDT *Phone Message/maricarmen Document Contains Addenda Addendum by CHELY ESCOBAR PA-C on December 22, 2015 09:39:10 CDT Spoke with Claudia today. She will have TSH drawn with fasting labs on Sunday. Discussed recent decrease in exercise tolerance with cardiology who had advised exercise echo. [facility] is in, [facility]. Addendum by NAEEM SARKAR LPN on December 22, 2015 09:27:38 CDT From: NAEEM SARKAR LPN ([facility] 1 Nurse) To: CHELY ESCOBAR PA-C; Sent: 12/22/2015 09:27:38 CDT Subject: FW: *Phone Message/maricarmen Patient notified about Labs due, Lipid Panel, Glucose fasting and TSH. Echo is also due correct? Please still go over EKG results. Thank you Addendum by ALONDRA BATRES on December 21, 2015 17:01:10 CDT Pt called back unable to reach nurse. Please call her back Addendum by JAIDA ROBERTO LPN on December 20, 2015 16:32:27 CDT From: JAIDA ROBERTO LPN ( Family [facility] 2E Nurse) To: [facility] Med 1 Nurse; Sent: 12/20/2015 16:32:27 CDT Subject: FW: *Phone Message/maricarmen From: REKHA PATIÑO ([facility] Med 1 Nurse) To: [facility] 2E Nurse; Sent: 12/20/2015 15:32:37 CDT Subject: *Phone Message/maricarmen Caller is: ( x ) Patient ( ) Mother ( ) Father ( ) Spouse ( ) Daughter ( ) Son ( ) Pharmacy ( ) Other: Physician: Patient MRN #: Reason for Call: pt is calling to get the results of all the test she had done 12/17/15, she is alsowaiting for information on an Rx (see other note). pt also has questions in regards to a call she recieved on an lab appointment she needs to schedule. please call pt at [phone] Message: Advice/Action: Source used: ( ) Verbalizes [...] back cell phone number ( ) Source: [facility] POWERCHART Document Id: [id number] Miscellaneous - Sharmin Magallanes - 12/20/2015 10:09 AM CDT *Medication Refill Msg Document Contains Addenda Addendum by CHELY ESCOBAR PA-C on December 20, 2015 12:17:02 CDT From: CHELY ESCOBAR PA-C To: [facility] Med 1 Nurse; Sent: 12/20/2015 12:17:02 CDT Subject: RE: *Medication Refill Msg New Rx has been sent. From: SHARMIN MAGALLANES ([facility] 1 Nurse) To: CHELY ESCOBAR PA-C; Sent: 12/20/2015 10:09:59 CDT Subject: *Medication Refill Msg Caller is: ( ) Patient ( ) Mother ( ) Father ( ) Spouse ( ) Daughter ( ) Son ( x ) Pharmacy ( ) Other: Provider: Pharmacy: [facility] Name of Medications Needing Refill: ventolin HFA Last Refill Date: 12/17/15 Additional Information:plan requires specific directions to process the prescription. please send new rx back with frequency of how patient will be using the medication and days supply limitations.-benson cevallos Last / Future Appointment: Disposition: ( ) Send to Pharmacy ( ) Call to Pharmacy ( ) Patient will picker and sorter load and unload Script ( ) Mail Rx to Patient Source: [facility] POWERCHART Document Id: [id number] Miscellaneous - Chely Escobar - 12/17/2015 3:12 PM CDT Results Notification Document Contains Addenda Addendum by COREEN ALFONSO LPN on December 30, 2015 10:14:41 CDT Patient notified. See other note. Addendum by NAEEM SARKAR LPN on December 29, 2015 09:01:42 CDT Left message to call back Addendum by NAEEM SARKAR LPN on December 22, 2015 14:21:39 CDT noted Addendum by CHELY ESCOBAR PA-C on December 21, 2015 16:55:41 CDT From: CHELY ESCOBAR PA-C To: [facility] 1 Nurse; Sent: 12/21/2015 16:55:41 CDT Show up: 12/21/2015 16:55:00 CDT Subject: RE: Results Notification Left VM asking patient to call back to discuss EKG findings and further recommendations. Addendum by NAEEM SARKAR LPN on December 20, 2015 18:23:14 CDT From: NAEEM SARKAR LPN ( [facility] 1 Nurse) To: CHELY ESCOBAR PA-C; Sent: 12/20/2015 18:23:14 CDT Show up: 12/20/2015 18:22:00 CDT Subject: RE: Results Notification Notified Please review EKG results From: CHELY ESCOBAR PA-C To: [facility] 1 Nurse; Sent: 12/17/2015 15:12:32 CDT ! Show up: 12/17/2015 15:12:32 CDT Subject: Results Notification Actions: Notify patient of results Reminder Comments: DDimer test (screening test for blood clot) within normal range. Results: Date Result Name Value Ref Range 12/17/2015 10:24 D-Dimer 0.28 mcg/mL FEU ( - <=0.50) Source: [facility] POWERCHART Document Id: [id number] Electronically signed by Conversion, [facility] Unloading Checker [id number] at 10/01/2016 2:43 AM CDT Miscellaneous - Chely Escobar - 12/17/2015 12:32 PM CDT Results Notification Document Contains Addenda Addendum by NAEEM SARKAR LPN on December 20, 2015 18:22:06 CDT Notified Addendum by COREEN ALFONSO LPN on December 17, 2015 14:33:24 CDT Will wait for CXR results. From: CHELY ESCOBAR PA-C To: [facility] 1 Nurse; Sent: 12/17/2015 12:32:14 CDT ! Show up: 12/17/2015 12:32:14 CDT Subject: Results Notification Actions: Notify patient of results Reminder Comments: CBC normal. No evidence of anemia. OK to wait for EKG result before calling with CXR and lab. Results: Date Result Name Ind Value Ref Range 12/17/2015 10:24 Hgb 15.3 g/dL (12.0 - 15.5) 12/17/2015 10:24 Hct (H) 46.7 % (34.9 - 44.5) 12/17/2015 10:24 WBC 6.2 x10(9)/L (3.4 - 10.5) 12/17/2015 10:24 RBC 4.95 x10(12)/L (3.90 - 5.03) 12/17/2015 10:24 MCV 94.3 fL (82.0 - 98.0) 12/17/2015 10:24 RDW 12.8 % (11.9 - 15.5) 12/17/2015 10:24 Platelet 258 x10(9)/L (150 - 450) Source: StyleJam Document Id: [id number] Jam - Chely Escobar - 12/17/2015 12:31 PM CDT Results Notification Document Contains Addenda Addendum by NAEEM SARKAR LPN on December 20, 2015 18:21:51 CDT Pt notified From: CHELY ESCOBAR PA-C To: [facility] Med 1 Nurse; Sent: 12/17/2015 12:31:31 CDT ! Show up: 12/17/2015 12:31:31 CDT Subject: Results Notification Actions: Notify patient of results Reminder Comments: Normal chest Xray. Lungs are clear. Normal heart size. Results: Date Result Type Result Name 12/17/2015 11:54 Radiology XR Chest 2 Views Source: [employer] Document Id: [id number] Miscellaneous - Chely Escobar - 12/17/2015 10:15 AM CDT Ambulatory Patient Summary [facility] [address] [place], [place] [id number] Visit Information Name: CLAUDIA MARTEL [facility] Number: [id number] Current Date: 12/17/2015 10:15:47 Physicians Attending Provider: CHELY ESCOBAR PA-C Primary Care Provider: CHELY ESCOBAR PA-C CLAUDIA MARTEL has been given the [...] 90 mcg/inh inhalation aerosol) 2 puff(s), Inhalation, as directed as needed for Shortness of breath / Wheezing 15 to 30min before exercise New Routed to [facility] [address], [place] [id number] calcium-vitamin D (Calcium 500+D) 1 Tablet(s), as needed fluticasone-salmeterol (Advair Diskus 100 mcg-50 mcg inhalation powder) 1 puff(s), Inhalation, two times a day New Routed to [facility] [address], [place] [phone] magnesium citrate (magnesium citrate) 300 Milliliter, Oral, as needed Restless legs Misc Prescription (Multiple Vitamin- Herbalife) Take 1 tablet, 3x daily This is a CHANGE Misc Prescription (Cell Activator-Herbalife) Take 1 tablet, 3xday This is a CHANGE norgestimate-ethinyl estradiol (TriNessa oral tablet) 1 Tablet(s), Oral, once a day Routed to [facility] [address] [place] [address] pimecrolimus topical (Elidel 1% topical cream) 1 mery, Topical, two times a day Routed to [facility] [address] [place] [id number] Stop Taking the Following Medications: acetaminophen/dextromethorphan/PSE (Dayquil Liquicaps) naproxen (naproxen 500 mg oral tablet) Medication list as of 12-17-15 10:15 Attention: If you have any medications at home that are not on this list, DO NOT take them until youcontact your provider for clarification. Give a copy of your medication list to your primary care provider. Update your medication list any time medications or doses are changed and carry your medication list at all times in case of emergency. Electronically Signed By: CHELY ESCOBAR PA-C Signed On:17-DEC-2015 10:15:44 Your Allergies & Intolerances Substance Reaction Symptoms [...] online form. Youll be asked for your [facility] number which you can find at the top of this document. Your Goals/Additional instructions: Source: [facility] POWERCHART Document Id: [id number] Miscellaneous - Chely Escobar - 12/17/2015 10:15 AM CDT Ambulatory Discharge Medication List [facility] [address] [place], [place] [phone] Visit Information Name: CLAUDIA MARTEL [facility] Number: [id number] Visit Date: 12/17/2015 10:15:46 Attending Provider: CHELY ESCOBAR PA-C Primary Care Provider: CHELY ESCOBAR PA-C CLAUDIA MARTEL has been given the [...] 90 mcg/inh inhalation aerosol) 2 puff(s), Inhalation, as directed as needed for Shortness of breath / Wheezing 15 to 30min before exercise New Routed to [address] [id number] calcium-vitamin D (Calcium 500+D) 1 Tablet(s), as needed fluticasone-salmeterol (Advair Diskus 100 mcg-50 mcg inhalation powder) 1 puff(s), Inhalation, two times a day New Routed to [facility] [address] [place] [id number] magnesium citrate (magnesium citrate) 300 Milliliter, Oral, as needed Restless legs Misc Prescription (Multiple Vitamin- Herbalife) Take 1 tablet, 3x daily This is a CHANGE Misc Prescription (Cell Activator-Herbalife) Take 1 tablet, 3xday This is a CHANGE norgestimate-ethinyl estradiol (TriNessa oral tablet) 1 Tablet(s), Oral, once a day Routed to [facility] [address] [place] [address] pimecrolimus topical (Elidel 1% topical cream) 1 mery, Topical, two times a day Routed to [facility] [address] [place] [id number] Stop Taking the Following Medications: acetaminophen/dextromethorphan/PSE (Dayquil Liquicaps) naproxen (naproxen 500 mg oral tablet) Medication list as of 12-17-15 10:15 Attention: If you have any medications at home that are not on this list, DO NOT take them until youcontact your provider for clarification. Give a copy of your medication list to your primary care provider. Update your medication list any time medications or doses are changed and carry your medication list at all times in case of emergency. Electronically Signed By: CHELY ESCOBAR PA-C Signed On:17-DEC-2015 10:15:44 Additional Information: Source: MadefireCHART Document Id: [id number] Jam - Chely Escobar - 12/17/2015 10:00 AM CDT Ambulatory Vitals Height Weight Ambulatory Vitals Height Weight Entered On: 12/20/2015 22:36 CDT Performed On: 12/17/2015 10:00 CDT by CHELY ESCOBAR PA-C Vitals/Ht/Wt SpO2 : 97 % Oxygen Therapy : Room air CHELY ESCOBAR PA-C - 12/20/2015 22:36 CDT Source: [facility] [employer] SiliconCHART Document Id: [id number] CDT!4 Miscellaneous - Mamie Pulido L.P.N. 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, now has trouble running 5 miles, Just can't catch breath LMP Date : 11/29/2015 Peripheral Pulse Rate : 80 /min Heart Rhythm : Regular Systolic Blood Pressure : 108 mmHg Diastolic Blood Pressure : 64 mmHg NIBP Mean : 79 mmHg BP Location : Right upper extremity Blood Pressure Cuff Size : Regular Height : 173 cm(Converted to: 5 ft 8 inch(es), 68 inch(es)) Actual Weight : 54.2 kg(Converted to: 119 lb 8 oz) Weight Source : Standing scale Dosing Weight Clinic : 54.2 kg Clinic BSA : 1.61 Body Mass Index : 18.11 kg/m2 MAMIE PULIDO LPN - 12/17/2015 9:23 CDT General Info Information Given By : Patient Languages : Iraqi Is Patient Female and 13-50 no hysterectomy : Yes Status : Patient denies Are you ? : No MAMIE PULIDO LPN - 12/17/2015 9:23 CDT Subjective Pain Symptoms : No MAMIE PULIDO LPN - 12/17/2015 9:23 CDT Dependent Habits Exposure to Tobacco Smoke : Other: Never Smoking Status : Never smoker Tobacco 2A : No Tobacco Use/Currently Using : No Tobacco Use/Last 30 Days : No Tobacco Use/Last 12 months : No MAMIE PULIDO LPN - 12/17/2015 9:23 CDT Source: [facility] POWERCHART Document Id: [id number] CDT!33 documented in this encounter Plan of Treatment Not on filedocumented as of this encounter Procedures Procedure Name Priority Date/Time Associated Diagnosis Comme nts DX CHEST AP OR PA Routine 12/17/2015 10:42 AM Res ults for this AND LATERAL 2 VIEWS CDT procedur e are in the results section. ECG Routine 12/17/2015 10:33 AM Results for this CDT procedure are i n the results section. D-DIMER, P Routine 12/17/2015 10:24 AM Results for this CDT procedure are i n the results section. CBC WITHOUT Routine 12/17/2015 10:24 AM Results for this DIFFERENTIAL, B CDT procedure ar e in the results section. PATHOLOGY COMMERCIAL HOUSEKEEPER Routine 12/17/2015 12:00 AM Results for this CYTOLOGY CDT procedure are i n the results section. documented in this encounter Results DX Chest Anterior Posterior or Posterior Anterior and Lateral 2 Views (12/17/2015 10:42 AM CDT) Anatomical Region Laterality Modality Chest N/A Radiographic Imaging Specimen (Source) Anatomical Collection Method Collection Time Re ceived Time Location / / Volume Laterality 12/17/2015 10:42 AM CDT Addenda Addendum by Provider, Bryan Romero 12/17/2015 10:42 AM CDT RAD^^^OW XR Chest 2 Views 12/17/2015 10:42:31 Impressions 12/17/2015 11:51 AM CDT No acute cardiopulmonary process. FINDINGS: ??Lungs clear. Normal heart si ze and pulmonary vascularity. No pleural effusion or pneumothorax. Moderate pectus excavatum. Mild anterior wedging of a vertebral body at the thoracolumbar junction with mild kyphotic deformity. AGE: 25 years-old Narrative 12/17/2015 11:51 AM CDT EXAM: XR Chest 2 Views INDICATION: Shortness of breath with exe rtion COMPARISON: None. Procedure Note Nani Funez M.D. / Provider, Zane multani M.D. - 09/09/2016 EXAM: XR Chest 2 Views INDICATION: Shortness of breath with exe rtion COMPARISON: None. IMPRESSION: No acute cardiopulmonary pro cess. FINDINGS: Lungs clear. Normal heart size and pulmonary vascularity. No pleural effusion or pneumothorax. Moderate pectus excavatum. Mild anterior wedging of a vertebral body at the thoracolumbar junction with mild kyphotic deformity. AGE: 25 years-old Edelmira Reddy(R), RSymoneTSymone(R)(M) IMG DIAGNOSTIC IMAG ING PROCEDURES ECG 12 Lead (12/17/2015 10:33 AM CDT) Specimen (Source) Anatomical Collection Method Collection Time Re ceived Time Location / / Volume Laterality 12/17/2015 10:33 AM CDT Narrative [facility] - 12/17/2015 10:33 AM CDT Test Reason : SHORTNESS OF BREATH WITH EXERTION Blood Pressure : / mmHG Vent. Rate : 046 BPM ? Atrial Rate : 046 BPM ?? P-R Int : 128 ms ?QRS D ur : 090 ms ?QT Int : 456 ms ? P-R-T Axe s : 019 079 062 degrees ?? QTc Int : 399 ms Sinus bradycardia Slight ST elevation, consider early repo larization No previous ECGs available Referred By: CHELY ESCOBAR ? Confirmed By:ALLYSSA ALMAZAN ?? Procedure Note Provider, Bryan Romero - 09/21/2016F ormatting of this note might be different from the original. Test Reason : SHORTNESS OF BREATH WITH E XERTION Blood Pressure : / mmHG Vent. Rate : 046 BPM Atrial Rate : 046 B PM P-R Int : 128 ms QRS Dur : 090 ms QT Int : 456 ms P-R-T Axes : 019 079 06 2 degrees QTc Int : 399 ms Sinus bradycardia Slight ST elevation, consider early repo larization No previous ECGs available Referred By: CHELY ESCOBAR Confi rmed By:ALLYSSA ALMAZAN MD Allyssa Almazan M.D. ECG ORDERABLES Performing Organization Address City/State/ZIP Code Phon e Number [facility] [address] [place] [id number] D-Dimer (12/17/2015 10:24 AM CDT) P athologist Signature D-Dimer, P 0.28 <=0.50 POWERCHART MCGMLFEU Comment: Results of this test should always be in terpreted in conjunction with the patient's medical history, clinical presentation and other findings. DVT and PE clinical diagnosis should not be based on the D-Dimer result alone. The measurement of D-Dimer should not be used as an aid in the diagnosis of VTE, in patients with: -Therapeutic dose anticoagulant therapy for >24 hours -Fibrinolytic therapy within previous 7 days -Trauma or surgery within previous 4 wee ks -Disseminated malignancies -Aortic aneurysm -Sepsis, severe infections, pneumonia, s evere skin infections -Liver cirrhosis - Specimen (Source) Anatomical Collection Method Collection Time Re ceived Time Location / / Volume Laterality Blood 12/17/2015 10:24 AM CDT Chely Sepulveda LAB BLOOD ADD-ON Performing Organization Address City/State/ZIP Code Phon e Number POWERCHART (ABNORMAL) CBC without Differential (12/17/2015 10:24 AM CDT) Analysis Performed At Patho logist Time Signature Leukocytes 6.2 3.4 - 10.5 POWERCHART X109L Erythrocytes 4.95 3.90 - POWERCHART 5.03 [id number] Hemoglobin 15.3 12.0 - POWERCHART 15.5 GDL Hematocrit 46.7 (H) 34.9 - POWERCHART 44.5 MCV 94.3 82.0 - POWERCHART 98.0 FL HX RDW 12.8 11.9 - POWERCHART 15.5 Platelet Count 258 150 - 450 POWERCHART X109L Specimen (Source) Anatomical Collection Method Collection Time Re ceived Time Location / / Volume Laterality Blood 12/17/2015 10:24 AM CDT Chely Sepulveda LAB BLOOD ADD-ON Performing Organization Address City/[facility] Phon e Number POWERCHART Pathology COMMERCIAL HOUSEKEEPER Cytology (12/17/2015 12:00 AM CDT) Specimen (Source) Anatomical Location Collection Method / Collectio n Time Received Time / Laterality Volume 12/17/2015 Narrative [facility] - 01/05/2016 9:46 AM CDT [facility] in [address] [place], [place] ??[address] Patient Name: CLAUDIA MARTEL Patient ID #: [id number] Collected: 12/17/2015 Address: City/State/Zip: [address] [place], [place] ??[address] Received: Reported: 12/20/2015 01/03/2016 Soc. Sec. #: ?/Age/Sex 1990 (Age: 25) ??F Physician(s): Rolando CHRISTENSEN Copy To: ? [facility] ?? [id number] [address] [facility], ??[place] ??[address] CYTOPATHOLOGY COMMERCIAL HOUSEKEEPER REPORT FINAL CYTOLOGIC DIAGNOSIS Pap Smear - ThinPrep: EPITHELIAL CELL ABNORMALITY ATYPICAL SQUAMOUS CELLS OF UNDETERMINED SIGNIFICANCE ENDOCERVICAL CELLS/COMPONENT PRESENT. CONSIDER REPEAT CYTOLOGY, HPV TESTING, A ND/OR COLPOSCOPY CLINICALLY INDICATED. SATISFACTORY SPECIMEN FOR EVALUATION. ??This specimen required a physician interpretation under CLIA 1987 ?? Electronically Signed Out By 01/03/2016 WHITLEY PEREZ M.D. GREYSON Cui CT(ASCP) The Pap test is a screening procedure [...] VIRUS ADDENDUM ? Baltazar e Ordered: ? 01/05/2016 ? Status: ??Signed Out Date Complete: ? 01/05/2016 ? By: ??DIONNE Rollins CT(ASCP) Date Reported: ? 01/05/2016 INTERPRETATION: Test: Aptima High Risk HPV Result: POSITIVE FOR HIGH RISK HPV Specimen Description: ThinPrep? ?? Pap Test PreservCyt Solution HPV by Unloading Checker-Mediated Amplificat ion (TMA) for E6/E7 viral messenger [...] infection may be transient, resolving or persistent. SPECIMEN(S) RECEIVED: Pap Smear - ThinPrep CLINICAL HISTORY: CONTROL Date of Last Menstrual Period: 11/29/2015 Hormonal History: No hormonal therapy Other Clinical Conditions: HPV TYPING REQUESTED: IF ASCUS Chely Sepulveda LAB PAP COPATH ORDERABLES Performing Organization Address City/State/ZIP Code Phon e Number [facility] documented in this encounter Visit Diagnoses Not on filedocumented in this encounter
--- OUTSIDE RECORDS SUMMARY | 2021-12-14 01:31 | XMS_ITS | Encounter Summary ---
:1990 Author Organization [facility] Address [address] [place] [address] Care Team Providers Name Role Phone Domonique Jones APRN, C.N.PSymone, D.N.P. Primary Care Provider Encounter Details Date Type Department Care Team Description 07/07/2014 Historical Ophthalmology [facility] Ken Greer M.D. [address] [place], [place] [phone] (Wo rk) Social History [...] How often do you attend druze or shinto services? Never 03/05/2021 Do you [...] documented as of this encounter Progress Notes Ken Greer M.D. - 07/07/2014 3:11 PM CST Eye General CHIEF COMPLAINT itchy lashes HISTORY OF PRESENT ILLNESS C/O LIDS AND LASHES HAVE BEEN VERY ITCHY OFF AND ON FOR THE PAST 8 WEEKS HAS BEEN TREATED FOR BLEPHARITIS IN THE PAST WEARS SCLs IMPRESSION / REPORT / PLAN #1 Blepharitis, both eyes. Mild. #2 Ocular rosacea. Plan; Rosacea dietary precautions reviewed. Tobradex stephanie twice daily both eyes for one week. INT DIAGNOSIS #1 Blepharitis, both eyes. Mild. #2 Ocular rosacea. CDM Reports - EYEGEN Id: [id number] Status: Fnl documented in this encounter Plan of Treatment Not on filedocumented as of this encounter Visit Diagnoses Not on filedocumented in this encounter Care Teams Manufacturing Industrial Engineer Relationship Specialty Start Date End Date Domonique Jones APRN, C.N.P., D.N.P. PCP - General 10/19/16 [address] [place] [phone] documented as of this encounter
--- OUTSIDE RECORDS SUMMARY | 2021-12-14 01:31 | XMS_ITS | Encounter Summary ---
:1990 Author Organization [facility] Address [address] [place] [address] Care Team Providers Name Role Phone Unavailable Primary Care Provider Unavailable Encounter Details Date Type Department Care Team Description 07/07/2014 Hospital Encounter HX [facility] Armando Kirkpatrick M.D. [address] [place], [place] [phone] (Wo rk) Social History [...] week 03/05/2021 How often do you attend yarsanism or gnosticist services? Never 03/05/2021 Do you belong to any clubs or organizations such as yarsanism N o 03/05/2021 groups, unions, fraternal or [...] or slept in a chcf (including now)? Sex Assigned at Date Recorded Female 01/16/2018 3:45 PM CDT documented as of this encounter Last Filed Vital Signs Vital Sign Reading Time Taken Comments Blood Pressure - - Pulse - - Temperature - - Respiratory Rate - - Oxygen Saturation - - Inhaled Oxygen Concentration - - Weight - - Height 173 cm (5' 8.11) 07/07/2014 3:05 PM POST SPLITTER Body Mass Index - - documented in this encounter Progress Notes Ken Fenton M.D. - 07/07/2014 3:04 PM CST [id number] The documentation for this visit is available in Synthesis IMPRESSION/REPORT/PLAN #1 Blepharitis, both eyes. Mild. #2 Ocular rosacea. Plan; Rosacea dietary precautions reviewed. Tobradex stephanie twice daily both eyes for one week. INT Ken Munguia. Bryan Fenton/shamika Electronically Signed By: KEN FENTON MD On: 07/14/2014 08:00 AM Source: [facility] MHSDOLBEYNONRADSYS Document Id: [id number] documented in this encounter Miscellaneous Notes Miscellaneous - Ken Fenton M.D. - 07/07/2014 3:29 PM CST Ambulatory Patient Summary [facility] [address] [place], [place] [phone] Visit Information Name: TAHMINAALFONSOStefani VELASCON [facility] Number: [id number] Current Date: 07/07/2014 15:29:42 Physicians Attending Provider: KEN FENTON MD Primary Care Provider: RIRI JAMES [facility] TAHMINACLAUDIA BARBOUR has been given the following list of [...] tablet) 1 Tablet(s), Oral, once a day tobramycin-dexamethasone ophthalmic (Tobradex 0.3%-0.1% ophthalmic ointment) 0.5 Inch(es), Eyes(Both), two times a day x 7 day(s) New Routed to [address] [id number] Stop Taking the Following Medications: Medication list as of 07-07-14 15:29 Attention: If you have any medications at home that are not on this list, DO NOT take them until youcontact your provider for clarification. Give a copy of your medication list to your primary care provider. Update your medication list any time medications or doses are changed and carry your medication list at all times in case of emergency. Electronically Signed By: KEN FENTON MD Signed On:07-JUL-2014 15:29:38 Your Allergies & Intolerances Substance Reaction Symptoms [...] appointment detail needed. Your Goals/Additional instructions: Source: [facility] POWERCHART Document Id: [id number] SPLITTER Miscellaneous - Ken Fenton M.D. - 07/07/2014 3:29 PM CST Ambulatory Discharge Medication List [facility] [address] [place], [place] [address], [place] [phone] Visit Information Name: CLAUDIA MARTEL [facility] Number: [id number] Visit Date: 07/07/2014 15:29:41 Attending Provider: KEN FENTON MD Primary Care Provider: RIRI JAMES [facility] CLAUDIA MARTEL has been given the following [...] tablet) 1 Tablet(s), Oral, once a day tobramycin-dexamethasone ophthalmic (Tobradex 0.3%-0.1% ophthalmic ointment) 0.5 Inch(es), Eyes(Both), two times a day x 7 day(s) New Routed to [facility] [address] [place] [phone] Stop Taking the Following Medications: Medication list as of 07-07-14 15:29 Attention: If you have any medications at home that are not on this list, DO NOT take them until youcontact your provider for clarification. Give a copy of your medication list to your primary care provider. Update your medication list any time medications or doses are changed and carry your medication list at all times in case of emergency. Electronically Signed By: KEN FENTON MD Signed On:07-JUL-2014 15:29:38 Additional Information: Source: [facility] POWERCHART Document Id: [id number] SPLITTER documented in this encounter Plan of Treatment Not on filedocumented as of this encounter Visit Diagnoses Not on filedocumented in this encounter
--- OUTSIDE RECORDS SUMMARY | 2021-12-14 01:31 | XMS_ITS | Encounter Summary ---
:1990 Author Organization [facility] Address [address] [place] [address] Care Team Providers Name Role Phone Unavailable Primary Care Provider Unavailable Encounter Details Date Type Department Care Team Description 06/22/2015 Hospital Encounter HX [facility] Chely Gonzalez, P.A. [address] [place] [address] HARRY Liu [phone] (Wo rk) Social History Tobacco Use Types [...] How often do you attend congregational or scientology services? Never 03/05/2021 Do you [...] Sign Reading Time Taken Comments Blood Pressure 100/62 06/22/2015 4:01 PM SERVICES MANAGER Pulse 61 06/22/2015 4:01 PM SERVICES MANAGER Temperature - - Respiratory Rate - - Oxygen Saturation - - Inhaled Oxygen Concentration - - Weight 58.6 kg (129 lb 3 oz) 06/22/2015 4:01 PM SERVICES MANAGER Height 173 cm (5' 8.11) 06/22/2015 4:01 PM SERVICES MANAGER Body Mass Index 19.58 06/22/2015 4:01 PM SERVICES MANAGER documented in this encounter Medications at Time of Discharge Medication Sig Dispensed Refills Start Date End Date magnesium citrate 100 mg Take 300 mL by mouth 0 0 12/04/2014 03/10/2017 tablet as needed. documented as of this encounter Progress Notes Chely Ricardo - 06/22/2015 3:40 PM CST [id number] CHIEF COMPLAINT/REASON FOR VISIT Suture removal. HISTORY OF PRESENT ILLNESS Claudia is a 25-year-old female who presents to the clinic today for suture removal. She had presented to the clinic on 06/14/2015 for excision of a mole which was done via punch biopsy. Two simple interrupted sutures were placed. She is here today for suture removal. Of note, pathology report did reveal a compound nevus without atypia with benign nevus focally at her lateral punch biopsy border. MEDICATIONS Reviewed per EMR on 06/22/2015. ALLERGIES Zithromax. VITAL SIGNS Weight 58.6 kg. Body mass index 19.58 kg/m2. Pulse 61. Blood pressure 100/62. PHYSICAL EXAMINATION SKIN: Over the left upper back is a well-healing lesion. Wound edges are well approximated, with no erythema or signs of infection. IMPRESSION/REPORT/PLAN ASSESSMENT: Suture removal. PLAN: Sutures were removed without complication. I do recommend continued annual skin exams. Chely Ricardo P.A.-C/shaneka Electronically Signed By: CHELY RICARDO PA-C On: 07/13/2015 10:50 AM Source: [facility] MHSDOLBEYNONRADSYS Document Id: [id number] ICES MANAGER documented in this encounter Miscellaneous Notes Miscellaneous - Oxana Tellez - 12/08/2015 10:41 AM CDT Med Management Document Contains Addenda Addendum by NAEEM CHEN LPN on December 08, 2015 16:55:16 CDT noted Addendum by CHELY RICARDO PA-C on December 08, 2015 16:45:51 CDT From: CHELY RICARDO PA-C Sent: 12/08/2015 16:45:51 CDT Subject: RE:Med Management Approved Order:norgestimate-ethinyl estradiol (TriNessa oral tablet) 1 tab(s) PO Daily Due for annual exam. Please call clinic to schedule. Qty: 90 tab(s) Refills: 0 Substitutions Allowed Route To Pharmacy - [place] [id number] Signed by CHELY RICARDO PA-C 12/08/2015 16:45:47 From: OXANA TELLEZ ([place] [address] Nurse) To: CHELY RICARDO PA-C; Sent: 12/08/2015 10:41:21 CDT Subject: Med Management On hold pending signature Order:norgestimate-ethinyl estradiol (TriNessa oral tablet) 1 tab(s) PO Daily Due for annual exam. Please call clinic to schedule. Qty: 90 tab(s) Refills: 0 Substitutions Allowed Route To Pharmacy - -[facility] [place] [address] Caller is: ( ) Patient ( ) Mother ( ) Father ( ) Spouse ( ) Daughter ( ) Son ( ) Pharmacy ( ) Other: Provider: Pharmacy: [facility] Name of Medications Needing Refill: trinessa 28 Last Refill Date: 09/17/15 Additional Information: Last / Future Appointment:lp: 07/06/14 nv: 12/17/15 Disposition: ( ) Send to Pharmacy ( ) Call to Pharmacy ( ) Patient will brick picker Script ( ) Mail Rx to Patient Source: [facility] POWERCHART Document Id: [id number] Electronically signed by Nai [facility] Narrow Gauge Operator [id number] at 09/30/2016 8:30 AM CDT Miscellaneous - Sharmin Ribera - 08/17/2015 2:50 PM CDT Med Management Document Contains Addenda Addendum by NAEEM CHEN LPN on August 18, 2015 16:36:31 CDT Patient notified Addendum by NAEEM CHEN LPN on August 18, 2015 08:17:25 CDT left message to call us back Addendum by CHELY RICARDO PA-C on August 17, 2015 17:42:34 CDT From: CHELY RICARDO PA-C To: [facility] Med 1 Nurse; Sent: 08/17/2015 17:42:34 CDT Subject: RE: Med Management Due for annual exam. Please call clinic to schedule. Addendum by CHELY RICARDO PA-C on August 17, 2015 17:42:27 CDT Approved with modifications: Order:norgestimate-ethinyl estradiol (TriNessa oral tablet) 1 tab(s) PO Daily Due for annual exam. Please call clinic to schedule. Qty: 90 tab(s) Refills: 0 Substitutions Allowed Route To Pharmacy - [facility] Signed by CHELY RICARDO PA-C 08/17/2015 17:42:10 From: SHARMIN RIBERA ([facility] Med 1 Nurse) To: CHELY RICARDO PA-C; Sent: 08/17/2015 14:50:21 CDT Subject: Med Management On hold pending signature Order:norgestimate-ethinyl estradiol (TriNessa oral tablet) 1 tab(s) PO Daily Qty: 90 tab(s) Refills: 3 Substitutions Allowed Route To Pharmacy - [facility] Caller is: ( ) Patient ( ) Mother ( ) Father ( ) Spouse ( ) Daughter ( ) Son ( x) Pharmacy ( ) Other: Provider: Chely Ricardo Pharmacy: [facility] Name of Medications Needing Refill: tri-sprintec tab 84 Last Refill Date: 05/30/15 last physical: 07/06/14 future appt: na Additional Information: Last / Future Appointment: Disposition: ( ) Send to Pharmacy ( ) Call to Pharmacy ( ) Patient will brick picker Script ( ) Mail Rx to Patient Source: [facility] POWERCHART Document Id: [id number] Electronically signed by Nai, [facility] Narrow Gauge Operator [id number] at 09/30/2016 8:30 AM CDT Miscellaneous - Chely Ricardo - 06/22/2015 6:50 PM CST Ambulatory Patient Summary [facility] [address] [place] [id number] Visit Information Name: CLAUDIA MARTEL [facility] Number: [id number] Current Date: 06/22/2015 18:50:13 Physicians Attending Provider: CHELY RICARDO PA-C Primary [...] the Following Medications: Medication list as of 06-22-15 18:50 Attention: If you have any medications at [...] Electronically Signed By: CHELY RICARDO PA-C Signed On:22-JUN-2015 18:50:01 Your Allergies & Intolerances Substance Reaction Symptoms [...] if you dont have one. Go to [email or web address] and click on Create Your Account. Then, follow the directions to complete the online form. Youll be asked for your [facility] number which you can find at the top of this document. Your Goals/Additional instructions: Source: [facility] POWERCHART Document Id: [id number] ICES MANAGER Miscellaneous - Chely Ricardo - 06/22/2015 6:50 PM CST Ambulatory Discharge Medication List [facility] [address] [place] [id number] Visit Information Name: CLAUDIA MARTEL [facility] Number: [id number] Visit Date: 06/22/2015 18:50:11 Attending Provider: CHELY RICARDO PA-C Primary Care [...] the Following Medications: Medication list as of 06-22-15 18:50 Attention: If you have any medications at [...] Electronically Signed By: CHELY RICARDO PA-C Signed On:22-JUN-2015 18:50:01 Additional Information: Source: [facility] POWERCHART Document Id: [id number] ICES MANAGER Miscellaneous - Naeem Chen L.P.N. - 06/22/2015 4:01 PM CST Adult Mortar Carrier Intake/History Adult Mortar Carrier Intake/History Entered On: 06/22/2015 16:03 SERVICES MANAGER Performed On: 06/22/2015 16:01 SERVICES MANAGER by NAEEM CHEN LPN Intake Chief Complaint : Suture removal punch removal posterior back Peripheral Pulse Rate : 61 /min Heart Rhythm : Regular Systolic Blood Pressure : 100 mmHg Diastolic Blood Pressure : 62 mmHg NIBP Mean : 75 mmHg BP Location : Right upper extremity Blood Pressure Cuff Size : Regular Height : 173 cm(Converted to: 5 ft 8 inch(es), 68 inch(es)) Actual Weight : 58.6 kg(Converted to: 129 lb 3 oz) Dosing Weight Clinic : 58.6 kg Clinic BSA : 1.68 Body Mass Index : 19.58 kg/m2 NAEEM CHEN LPN - 06/22/2015 16:01 SERVICES MANAGER General Info Information Given By : Patient Languages : Gambian Is Patient Female and 13-50 no hysterectomy : Yes Status : Patient denies Are you ? : No NAEEM CHEN LPN - 06/22/2015 16:01 SERVICES MANAGER Subjective Pain Symptoms : No NAEEM CHEN LPN - 06/22/2015 16:01 SERVICES MANAGER Dependent Habits Exposure to Tobacco Smoke : Other: Never Smoking Status : Never smoker Tobacco 2A : Yes Tobacco Use/Currently Using : No Tobacco Use/Last 30 Days : No Tobacco Use/Last 12 months : No NAEEM CHEN LPN - 06/22/2015 16:01 SERVICES MANAGER Source: [facility] POWERCHART Document Id: [id number] SERVICES MANAGER!30 ICES MANAGER documented in this encounter Plan of Treatment Not on filedocumented as of this encounter Visit Diagnoses Not on filedocumented in this encounter
--- OUTSIDE RECORDS SUMMARY | 2021-12-14 01:32 | XMS_ITS | Encounter Summary ---
:1990 Author Organization [facility] Address [address] [place] [address] Care Team Providers Name Role Phone Unavailable Primary Care Provider Unavailable Encounter Details Date Type Department Care Team Description 11/27/2006 Hospital Encounter HX [facility] Provider, Me anand Social History Tobacco Use Types Packs/Day [...] How often do you attend anglican or latter day services? Never 03/05/2021 Do [...]
--- OUTSIDE RECORDS SUMMARY | 2021-12-14 01:32 | XMS_ITS | Encounter Summary ---
:1990 Author Organization [facility] Address [address] [place] [address] Care Team Providers Name Role Phone Unavailable Primary Care Provider Unavailable Encounter Details Date Type Department Care Team Description 05/02/2012 Hospital Encounter [facility]X [facility] Riri James, SERGE, R.N. [address] [place] [address] (Wo rk) Social History Tobacco Use Types [...] How often do you attend anabaptist or methodist services? Never 03/05/2021 Do you belong to [...] slept in a senior living (including now)? Sex Assigned at Date Recorded Female 01/16/2018 3:45 PM CDT documented as of this encounter Last Filed Vital Signs Vital Sign Reading Time Taken Comments Blood Pressure 109/59 05/02/2012 11:49 AM PLANT CONTROL AIDE Pulse 74 05/02/2012 11:49 AM PLANT CONTROL AIDE Temperature - - Respiratory Rate 22 05/02/2012 11:49 AM PLANT CONTROL AIDE Oxygen Saturation - - Inhaled Oxygen Concentration - - Weight 57 kg (125 lb 10.6 oz) 05/02/2012 11:49 AM PLANT CONTROL AIDE Height 173 cm (5' 8.11) 05/02/2012 11:49 AM PLANT CONTROL AIDE Body Mass Index 19.05 05/02/2012 11:49 AM PLANT CONTROL AIDE documented in this encounter H&P Notes Riri James, SERGE, RSymoneN. - 05/02/2012 11:36 AM CST [id number] CHIEF COMPLAINT/REASON FOR VISIT 1. control refill 2. Pelvic pain after intercourse 3. General physical HISTORY OF PRESENT ILLNESS Claudia is a 22-year-old young lady who I see routinely for her physical exam. Last visit was April of 2011. She is not having any difficulty with her control pill and would like to refill. SYSTEMS REVIEW She has continued to have upper respiratory congestion. I did see her in Urgent Care this last weekend and also she states that she has been treated now for a urinary tract fraction. I can see the notes that she was seen and urinalysis had 50,000 to 100,000 colonies. She denies any other respiratory distress or difficulty. 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 She has a new sexual partner and wants further testing. HABITS: She does not smoke or drink alcohol. She exercises routinely. Wears her seat belt. FAMILY HISTORY No change. No cancers, hypertension, hyperlipidemia or diabetes. GYNECOLOGICAL HISTORY: 0, para 0. Last menstrual period 04/29/2012. PAST MEDICAL / SURGICAL HISTORY 1. History of patent ductus arteriosus with surgical repair at age 11 2. Septoplasty maxillary antral antrostomy 3. Adenoidectomy 4. control pill CURRENT MEDICATIONS All reviewed without change per EMR ALLERGIES All reviewed without change per EMR VITAL SIGNS All reviewed without change per EMR PHYSICAL EXAMINATION Alert, interactive, very pleasant, slight built young woman. HEAD: Normocephalic. EYES: PERRLA. NARES: Moist boggy, mildly erythematous. NECK: Supple. Lungs are clear. She is coughing intermittently. HEART: Rate regular, rhythm regular. S1, S2 heard without murmur. EXTREMITIES: Without deformity or limitation of motion. SKIN: Without lesions. She does have her back scarred due to the repair of her PDA. She does have multiple tattoos. NEUROLOGIC: Cranial nerves II-XII grossly intact. Deep tendon reflexes were not completed. ABDOMEN: Soft, nondistended. No hepatosplenomegaly or masses. BREASTS: Without nipple discharge or masses. PELVIS: Normal female external genitalia. Normal transformation zone of the cervix. Pap smear was obtained. GC/chlamydia obtained. Bimanual exam without fullness, tenderness or masses. IMPRESSION/REPORT/PLAN 1. Complete physical. Healthy 22-year-old young woman. Pap, GC/chlamydia were completed. control pill refilled. 2. Current upper respiratory infection. Continue to treat symptomatically 3. Current urinary tract infection. Continue with antibiotic therapy. Tdap and flu shot were held today because she has not been feeling well. She will complete that in the next month. She agrees with this plan and will follow as directed. Riri James A.P.R.N./jitendra Electronically Signed By: RIRI JAMES On: 05/08/2012 12:03 PM Source: [facility] MHSDOLBEYNONRADSYS Document Id: [id number] T CONTROL AIDE documented in this encounter Miscellaneous Notes Miscellaneous - Jimi Salguero R.N. - 06/12/2014 4:01 PM CST Med Management BCP From: JIMI SALGUERO [facility] To: RIRI JAMES; Sent: 06/12/2014 16:01:03 PLANT CONTROL AIDE Subject: Med Management BCP On hold pending signature Order:norgestimate-ethinyl estradiol (TriNessa oral tablet) 1 tab(s) PO Daily Qty: 28 tab(s) Refills: 0 Substitutions Allowed Route To Pharmacy - [facility] Caller is: ( ) Patient ( ) Mother ( ) Father ( ) Spouse ( ) Daughter ( ) Son ( ) Pharmacy ( ) Other: Pharmacy: [facility] Name of Medications Needing Refill: Trinessa Last Refill Date: Additional Information: Last / Future Appointment: last aptp: 05-02-12 next appt: 07-06-14 Disposition: ( ) Send to Pharmacy ( ) Call to Pharmacy ( ) 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 - 05/08/2012 12:06 PM CST Results Notification Document Contains Addenda Addendum by TERRY BRAVO on 08 May 2012 14:51:25 PLANT CONTROL AIDE Pt informed & appropriate letter mailed. From: RIRI JAMES To: TERRY BRAVO Sent: 05/08/2012 12:06:49 PLANT CONTROL AIDE ! Show up: 05/08/2012 18:06:49 [facility] Subject: Results Notification Actions: Notify patient of results Source: [facility] [employer] CampaignCHART Document Id: [id number] Electronically signed by Conversion, [facility] [employer] Prescription Clerk [id number] at 10/07/2016 3:57 PM CDT Miscellaneous - Riri James APRN, R.N. - 05/03/2012 3:59 PM CST Results Notification Document Contains Addenda Addendum by TERRY BRAVO on 08 May 2012 14:51:49 PLANT CONTROL AIDE Pt informed From: RIRI JAMES To: TERRY BRAVO Sent: 05/03/2012 15:59:21 PLANT CONTROL AIDE ! Show up: 05/03/2012 21:59:21 [facility] Subject: Results Notification Actions: Notify patient of results Source: [facility] POWERCHART Document Id: [id number] Electronically signed by Nai, [facility] [employer] Prescription Clerk [id number] at 10/07/2016 3:57 PM CDT Miscellaneous - Riri James, SERGE, R.N. - 05/02/2012 12:15 PM CST Ambulatory Patient Summary [facility] [address] [place] [id number] Visit Information Name: CLAUDIA MARTEL [facility] Number: [id number] Current Date: 05/02/2012 12:15:54 Physicians Attending Provider: RIRI JAMES Primary Care Provider: PCP, UNASSIGNED Your Medications Here is a list of your medications. It is important to take your medications as directed. Use a pillbox or chart to help remind you to take your medications. Please let your doctor or nurse know if you have problems taking your medications. Medication/Strength Dose Route Frequency Indications/Special Instructions/Comments norgestimate-ethinyl estradiol (TriNessa oral tablet) 1 tab(s) Oral once a day dextromethorphan/APAP/diphenhydrAMINE (dextromethorphan/acetaminophen/diphenhydrAMINE 10 mg-325 mg-12.5 mg/5 mL oral liquid) 2 tbl Oral every 4 hours as needed for cold symptoms fluconazole (Diflucan 150 mg oral tablet) 150 mg Oral every 72 hours nitrofurantoin (Macrobid 100 mg oral capsule) 100 mg Oral two times a day for 7 Days albuterol (Ventolin 90 mcg/inh inhalation aerosol with adapter) Attention: If you have any medications at home that are not on this list, DO NOT take them until youcontact your provider for clarification. Your Allergies & Intolerances Substance Reaction Symptoms Category Comments Zithromax Z-Juan rash Drug Your Problem List Problem Status Onset Comments Whiplash Active 10/15/2007 History of PDA WITH SURGICAL REPAIR Active 02/14/10 AT AGE 11 Revision septoplasty Active Oral contraception Active General examination of patient Active Your Upcoming Appointments Date Time Location Reason Provider No Appointments found Your Goals/Additional instructions: Source: [facility] POWERCHART Document Id: [id number] T CONTROL AIDE Miscellaneous - Riri James APRN, R.N. - 05/02/2012 12:15 PM CST Ambulatory Depart Summary [address] [address] Visit Information Name: CLAUDIA MARTEL [facility] Number: [id number] Visit Date: 05/02/2012 12:15:53 Attending Provider: RIRI JAMES [facility] Primary Care Provider: PCP, UNASSIGNED CLAUDIA MARTEL has been given the following list of medications: Your Medications It is important to take your medications as directed. Use a pill box or chart to help remind you to take your medications. Please let your doctor or nurse know if you have problems taking your medications. Medication/Strength Dose Route Frequency Indications/Special Instructions/Comments norgestimate-ethinyl estradiol (TriNessa oral tablet) 1 tab(s) Oral once a day dextromethorphan/APAP/diphenhydrAMINE (dextromethorphan/acetaminophen/diphenhydrAMINE 10 mg-325 mg-12.5 mg/5 mL oral liquid) 2 tbl Oral every 4 hours as needed for cold symptoms fluconazole (Diflucan 150 mg oral tablet) 150 mg Oral every 72 hours nitrofurantoin (Macrobid 100 mg oral capsule) 100 mg Oral two times a day for 7 Days albuterol (Ventolin 90 mcg/inh inhalation aerosol with adapter) Attention: If you have any medications at home that are not on this list, DO NOT take them until youcontact your provider for clarification. Additional Information: Source: [facility] POWERCHART Document Id: [id number] T CONTROL AIDE Miscellaneous - Conversion, Historical Provider Ser - 05/02/2012 12:01 PM PLANT CONTROL AIDE Health Assessment Health Assessment Entered On: 05/02/2012 12:02 PLANT CONTROL AIDE Performed On: 05/02/2012 12:01 PLANT CONTROL AIDE by TERRY BRAVO Health Assessment Complete Health Assessment Complete or Modified : Annual Health Assessment Annual Health Assessment Completed : Yes TERRY BRAVO - 05/02/2012 12:01 PLANT CONTROL AIDE Nutrition Nutrition Risk Factors by History Adult : None TERRY BRAVO - 05/02/2012 12:01 PLANT CONTROL AIDE Functional Living Situation : Home independently Current Daily Living Assistance : None Mobility Assistance Prior to Admission : Independent TERRY BRAVO - 05/02/2012 12:01 PLANT CONTROL AIDE Dependent Habits Tobacco Use/Currently Using : No Exposure to Tobacco Smoke : Other: Never Smoking Status : Never smoker TERRY BRAVO - 05/02/2012 12:01 PLANT CONTROL AIDE Psychosocial Domestic Abuse Concerns : None TERRY BARVO 05/02/2012 12:01 PLANT CONTROL AIDE Advance Directive Advanced Directives : No TERRY BRAVO 05/02/2012 12:01 PLANT CONTROL AIDE Educ Needs Learning Style Preference Adult Grid Patient : None Family : None TERRY BRAVO - 05/02/2012 12:01 PLANT CONTROL AIDE Source: [facility] POWERCHART Document Id: [id number] Miscellaneous - Conversion, Historical Provider Ser - 05/02/2012 11:49 AM PLANT CONTROL AIDE Adult Test Engineering Intern Intake/History Adult Test Engineering Intern Intake/History Entered On: 05/02/2012 11:56 PLANT CONTROL AIDE Performed On: 05/02/2012 11:49 PLANT CONTROL AIDE by TERRY BRAVO Intake Chief Complaint : Physical LMP Date : 04/29/12 Temperature Oral : 36.6C(Converted to: 97.9DegF) Peripheral Pulse Rate : 74/min Respiratory Rate : 22/min (HI) Heart Rhythm : Regular Systolic Blood Pressure : 109mmHg Diastolic Blood Pressure : 59mmHg NIBP Mean : 76mmHg BP Location : Right upper extremity Blood Pressure Cuff Size : Regular Oxygen Therapy : Room air Height : 173cm(Converted to: 5ft 8inch(es), 68.11inch(es)) Actual Weight : 57kg(Converted to: 125lb 11oz) Weight Source : Standing scale Dosing Weight Clinic : 57.00kg Clinic BSA : 1.66 Body Mass Index : 19.05kg/m2 TERRY BRAVO 05/02/2012 11:49 PLANT CONTROL AIDE Subjective Pain Symptoms : Yes Respiratory Symptoms : Cough, Shortness of breath, Other: Sinus/head pressure Mouth and Throat Symptoms : Hoarse voice TERRY BRAVO 05/02/2012 11:49 PLANT CONTROL AIDE Pain Pain Assessment Grid Pain 1 Location : Head TERRY BRAVO 05/02/2012 11:49 PLANT CONTROL AIDE Dependent Habits Tobacco Use/Currently Using : No Exposure to Tobacco Smoke : Other: Never Smoking Status : Never smoker TERRY BRAVO 05/02/2012 11:49 PLANT CONTROL AIDE Allergy Allergies (Active) Zithromax Z-Juan Estimated Onset Date: Unspecified ; Reactions: rash ; Created By: JOSE A JORGENSEN MD; Reaction Status: Active ; Category: Drug ; Substance: Zithromax Z-Juan ; Type: Allergy ; Updated By: JOSE A JORGENSEN MD; Reviewed Date: 05/02/2012 11:48 PLANT CONTROL AIDE Source: [facility] POWERCHART Document Id: [id number] documented in this encounter Plan of Treatment Not on filedocumented as of this encounter Procedures Procedure Name Priority Date/Time Associated Diagnosis Comme nts N GONOR AMP SRC Routine 05/02/2012 5:46 PM Result s for this PLANT CONTROL AIDE procedure are i n the results section. N GONOR AMP DNA Routine 05/02/2012 5:46 PM Result s for this PLANT CONTROL AIDE procedure are i n the results section. C TRACH AMP SRC Routine 05/02/2012 5:46 PM Result s for this PLANT CONTROL AIDE procedure are i n the results section. C TRACH AMP RNA Routine 05/02/2012 5:46 PM Result s for this PLANT CONTROL AIDE procedure are i n the results section. PATHOLOGY THERMO CEMENTING FOLDER OPERATOR Routine 05/02/2012 12:00 AM Results for this CYTOLOGY PLANT CONTROL AIDE procedure are i n the results section. documented in this encounter Results HX-N gonor Amp DNA (05/02/2012 5:46 PM PLANT CONTROL AIDE) athologist Signature HXN gonor Amp Negative POWERCHART DNA-[place] Specimen (Source) Anatomical Collection Method Collection Time Re ceived Time Location / / Volume Laterality 05/02/2012 5:46 PM PLANT CONTROL AIDE Narrative POWERCHART - 05/03/2012 2:29 PM PLANT CONTROL AIDE Test Performed by: [place] [address] Product Marketing Engineer: Stoney bowens III, M.D. Riri James APRN RSymoneN. LAB HISTORICAL ORDERS Performing Organization Address City/State/ZIP Code Phon e Number POWERCHART HX-N gonor Amp Src (05/02/2012 5:46 PM PLANT CONTROL AIDE) athologist Signature HXN gonor Amp cervix POWERCHART Src-[place] Specimen (Source) Anatomical Collection Method Collection Time Re ceived Time Location / / Volume Laterality 05/02/2012 5:46 PM PLANT CONTROL AIDE Riri James APRN RRosa. LAB HISTORICAL ORDERS Performing Organization Address City/State/ZIP Code Phon e Number POWERCHART HX-C trach Amp RNA (05/02/2012 5:46 PM PLANT CONTROL AIDE) [facility] gist Method Time [facility] Chlamydia Negative POWERCHART trachomatis amplified RNA Specimen (Source) Anatomical Collection Method Collection Time Re ceived Time Location / / Volume Laterality 05/02/2012 5:46 PM PLANT CONTROL AIDE Riri James APRN R.N. LAB HISTORICAL ORDERS Performing Organization Address City/State/ZIP Code Phon e Number POWERCHART HX-C trach Amp Src (05/02/2012 5:46 PM PLANT CONTROL AIDE) athologist Signature HXC trach Amp cervix [facility] Anatomical Collection Method Collection Time Re ceived Time Location / / Volume Laterality 05/02/2012 5:46 PM PLANT CONTROL AIDE Riri James APRN, R.N. LAB HISTORICAL ORDERS Performing Organization Address City/State/ZIP Code Phon e Number POWERCHART Pathology THERMO CEMENTING FOLDER OPERATOR Cytology (05/02/2012 12:00 AM PLANT CONTROL AIDE) Specimen (Source) Anatomical Location Collection Method / Collectio n Time Received Time / Laterality Volume 05/02/2012 Narrative [facility] - 05/08/2012 6:35 AM PLANT CONTROL AIDE [facility], [address] [address] ? Patient Name: CLAUDIA MARTEL Patient ID #: [id number] Collected: 05/02/2012 Address: City/State/Zip: [address] [place], [place] [address], [place] ??[id number] Received: Reported: 05/03/2012 05/08/2012 Soc. Sec. #: ?/Age/Sex (Age: 22) ??F Physician(s): Jian JAMES NP Copy To: ? [facility] ?? [id number] [phone] ??[address] CYTOPATHOLOGY THERMO CEMENTING FOLDER OPERATOR REPORT FINAL CYTOLOGIC DIAGNOSIS Pap Smear - ThinPrep: NEGATIVE FOR INTRAEPITHELIAL LESION OR MALIGNANCY ENDOCERVICAL CELLS/COMPONENT PRESENT. SATISFACTORY SPECIMEN FOR EVALUATION. Electronically Signed Out By amb[facility]/08/[facility] The Pap test is a screening [...] of any false negatives that may occur. SPECIMEN(S) RECEIVED: Pap Smear - ThinPrep CLINICAL HISTORY: Date of Last PAP: LCM 10/19/06 Other Clinical Conditions: HPV TYPING REQUESTED: IF ASCUS Riri James APRN, R.N. LAB PAP COPATH ORDERABLES Performing Organization Address City/State/ZIP Code Phon e Number [facility] documented in this encounter Visit Diagnoses Not on filedocumented in this encounter
--- OUTSIDE RECORDS SUMMARY | 2021-12-14 01:32 | XMS_ITS | Encounter Summary ---
:1990 Author Organization [facility] Address [address] [place] [address] Care Team Providers Name Role Phone Unavailable Primary Care Provider Unavailable Encounter Details Date Type Department Care Team Description 04/27/2012 Hospital Encounter [facility]X [facility] Alia James, TRAFFIC EXPERT, R.N. [address] [place] [address] (Wo rk) Social History Tobacco Use Types [...] week 03/05/2021 How often do you attend sabianism or methodist services? Never 03/05/2021 Do you belong to any clubs or organizations such as sabianism N o 03/05/2021 groups, unions, fraternal or [...] Sign Reading Time Taken Comments Blood Pressure 100/70 04/27/2012 12:21 PM ASTRO TECHNICIAN Pulse 92 04/27/2012 12:21 PM ASTRO TECHNICIAN Temperature - - Respiratory Rate 16 04/27/2012 12:21 PM ASTRO TECHNICIAN Oxygen Saturation - - Inhaled Oxygen Concentration - - Weight 58.2 kg (128 lb 4.9 oz) 04/27/2012 12:21 PM ASTRO TECHNICIAN Height - - Body Mass Index - - documented in this encounter Progress Notes Alia James, SERGE, R.N. - 04/27/2012 11:36 AM CST [id number] CHIEF COMPLAINT / REASON FOR VISIT Cough and bronchospasm HISTORY OF PRESENT ILLNESS Claudia is a 22-year-old young lady who I see for general physical, have not seen her for about a year. She states that she has had a cough that has gotten worse, kept her up. Last night she coughed so much she had to use an albuterol inhaler that she got this spring before she went to [place] for 3 months. She has really hardly ever used it but because she was leaving the country she was given this prescription by her physician in [place]. She has no history of asthma or reactive airway but thereis a strong history in the family. Current medications, allergies and vitals all reviewed without change per EMR. PHYSICAL EXAMINATION Alert, interactive, beautiful young lady, no acute distress. Skin is warm and dry. HEENT: Head normocephalic. Eyes PERRLA. Nares moist, boggy, erythematous. Throat is mildly erythematous without obstruction. Tympanic membranes clear. Neck supple. LUNGS: Clear. No wheezes, rales, rhonchi. Cough is intermittent and a bit bronchospastic. HEART: Rate is regular. Rhythm is regular. S1, S2 heard without murmur. IMPRESSION / REPORT / PLAN Viral upper respiratory infection with cough, bronchospasm. I will encourage her to use her albuterol multidose inhaler. I gave her a spacer. We discussed symptomatic management and she is actually following up with me next week for her general preventative services so we will review how she is doing.Reassurance is given. Alia James A.P.R.N./amanda Electronically Signed By: ALIA JAMES On: 05/02/2012 01:31 PM Source: [facility] MHSDOLBEYNONRADSYS Document Id: [id number] O TECHNICIAN documented in this encounter Miscellaneous Notes Miscellaneous - Alia James APRN, R.N. - 04/27/2012 12:31 PM CST Ambulatory Depart Summary [address] [address] Visit Information Name: CLAUDIA MARTEL [facility] Number: [id number] Visit Date: 04/27/2012 12:31:28 Attending Provider: ALIA JAMES Primary Care Provider: PCP, UNASSIGNED CLAUDIA MARTEL has been given the following list of medications: Your Medications It is important to take your medications as directed. Use a pill box or chart to help remind you to take your medications. Please let your doctor or nurse know if you have problems taking your medications. Medication/Strength Dose Route Frequency Indications/Special Instructions/Comments albuterol (albuterol 200 mcg inhalation capsule) norgestimate-ethinyl estradiol (TriNessa oral tablet) 1 tab(s) Oral once a day Attention: If you have any medications at home that are not on this list, DO NOT take them until youcontact your provider for clarification. Additional Information: Source: [facility] POWERCHART Document Id: [id number] O TECHNICIAN Miscellaneous - Alia James APRN, R.N. - 04/27/2012 12:31 PM CST Ambulatory Patient Summary [facility] [address] [place] [address] Visit Information Name: CLAUDIA MARTEL [facility] Number: [id number] Current Date: 04/27/2012 12:31:28 Physicians Attending Provider: ALIA JAMES MAINFRAME ANALYST Primary Care Provider: PCP, UNASSIGNED Your Medications Here is a list of your medications. It is important to take your medications as directed. Use a pillbox or chart to help remind you to take your medications. Please let your doctor or nurse know if you have problems taking your medications. Medication/Strength Dose Route Frequency Indications/Special Instructions/Comments albuterol (albuterol 200 mcg inhalation capsule) norgestimate-ethinyl estradiol (TriNessa oral tablet) 1 tab(s) Oral once a day Attention: If you have any medications at [...] 12 Revision septoplasty Active Oral contraception Active Your Upcoming Appointments Date Time Location Reason Provider 05/02/2012 11:45 [facility] PHYSICAL Alia James NP Your Goals/Additional instructions: Source: [facility] POWERCHART Document Id: [id number] O TECHNICIAN Miscellaneous - Zaid Cowan, L.P.N. - 04/27/2012 12:21 PM CST Adult Motor Analyst Intake/History Adult Motor Analyst Intake/History Entered On: 04/27/2012 12:23 ASTRO TECHNICIAN Performed On: 04/27/2012 12:21 ASTRO TECHNICIAN by ZAID COWAN Intake Chief Complaint : cough, chest hurts has been using albuterol inhaler last 2 days with no relief Onset of Symptoms : 3 days Temperature Oral : 36.9C(Converted to: 98.4DegF) Peripheral Pulse Rate : 92/min Respiratory Rate : 16/min Systolic Blood Pressure : 100mmHg Diastolic Blood Pressure : 70mmHg NIBP Mean : 80mmHg BP Location : Right upper extremity Blood Pressure Cuff Size : Regular Actual Weight : 58.2kg(Converted to: 128lb 5oz) Dosing Weight Clinic : 58.20kg ZAID COWAN - 04/27/2012 12:21 ASTRO TECHNICIAN Subjective Pain Symptoms : No ZAID COWAN - 04/27/2012 12:21 ASTRO TECHNICIAN Dependent Habits Tobacco Use/Currently Using : No Exposure to Tobacco Smoke : Other: Never Smoking Status : Never smoker ZAID COWAN - 04/27/2012 12:21 ASTRO TECHNICIAN Allergy Allergies (Active) Zithromax Z-Juan Estimated Onset Date: Unspecified ; Reactions: rash ; Created By: JOSE A JORGENSEN MD; Reaction Status: Active ; Category: Drug ; Substance: Zithromax Z-Juan ; Type: Allergy ; Updated By: JOSE A JORGENSEN MD; Reviewed Date: 04/27/2012 12:20 ASTRO TECHNICIAN Source: [facility] POWERCHART Document Id: [id number] O TECHNICIAN documented in this encounter Plan of Treatment Not on filedocumented as of this encounter Visit Diagnoses Not on filedocumented in this encounter
--- OUTSIDE RECORDS SUMMARY | 2021-12-14 01:32 | XMS_ITS | Encounter Summary ---
:1990 Author Organization [facility] Address [address] [place] [address] Care Team Providers Name Role Phone Unavailable Primary Care Provider Unavailable Encounter Details Date Type Department Care Team Description 03/04/2011 - 03/05/2011 Hospital Encounter HX NO MAPPING Social History Tobacco Use Types Packs/Day Years [...] How often do you attend advent or anglican services? Never 03/05/2021 Do you belong to [...]
--- OUTSIDE RECORDS SUMMARY | 2021-12-14 01:32 | XMS_ITS | Encounter Summary ---
:1990 Author Organization [facility] Address [address] [place] [address] Care Team Providers Name Role Phone Unavailable Primary Care Provider Unavailable Encounter Details Date Type Department Care Team Description 03/16/2005 Hospital Encounter [facility]X [facility] Fernando Rojo W, P.A. [address] [place] [address] (Wo rk) Social History Tobacco Use Types [...] How often do you attend methodist or jehovah's witness services? Never 03/05/2021 Do [...]
--- OUTSIDE RECORDS SUMMARY | 2021-12-14 01:32 | XMS_ITS | Encounter Summary ---
:1990 Author Organization [facility] Address [address] [place] [address] Care Team Providers Name Role Phone Unavailable Primary Care Provider Unavailable Encounter Details Date Type Department Care Team Description 02/14/2010 Hospital Encounter HX [facility] Flora Waite M.D. [address] [place] [address] 08 Social History Tobacco Use Types Packs/Day Years [...] week 03/05/2021 How often do you attend judaism or spiritism services? Never 03/05/2021 Do you belong to any clubs or organizations such as judaism N o 03/05/2021 groups, unions, fraternal or [...] PM CDT documented as of this encounter H&P Notes Jose A Waite M.D. - 02/14/2010 12:00 AM CDT [id number] HISTORY OF PRESENT ILLNESS Claudia is a 20-year-old 0, para 0, lady who presents today for complete physical exam. She has had a new sexual partner over the last 6 months, and she will need her Pap smear and chlamydia testing today. SYSTEMS REVIEW GENERAL: The patient denies headache, lightheadedness, and dizziness. EYES: Denies blurry vision, double vision, and conjunctival discharge. ENT: Denies bleeding gums, tooth ache, and difficulty swallowing. RESPIRATORY: Denies shortness of breath, cough, and wheezing. CARDIOVASCULAR: Denies chest pain, palpitations, and dyspnea on exertion. : Denies frequency, urgency, and burning and pain with urination. Denies dysmenorrhea, menorrhagia, and metromenorrhagia. MUSCULOSKELETAL: Denies pain, swelling, and redness of joints. DERMATOLOGIC: Denies skin rashes and denies lesions. PAST MEDICAL / SURGICAL HISTORY 1) History of patent ductus arteriosus with subsequent surgical repair at age of 11. 2) History of septoplasty and maxillary antrostomy. 3) History of adenoidectomy. SOCIAL HISTORY PATIENT PROFILE: The patient is a student in [place], [place]. She grew up in [place]. She has a significant other. HABITS: She does not smoke, does not drink alcohol, exercises moderately. FAMILY HISTORY No family history of breast cancer, colon cancer, ovarian cancer, hypertension, hyperlipidemia, diabetes. VITAL SIGNS HEIGHT: 174 cm WEIGHT: 61 kg TEMP: 36.8 degreesC PULSE: 60 BLOOD PRESSURE: 104/70 PHYSICAL EXAM GENERAL: The patient is in no distress. HEAD: Normocephalic, atraumatic. No deformities. EYES: Extraocular movements are intact. Sclerae are anicteric. Pupillary reactions are equal to light. Eyelids and eyelashes are intact. ENT: Mouth has good oral hygiene with no pharyngeal erythema. No tonsillar enlargement. No postnasal drip appreciated. Neck is supple with no lymphadenopathy. LYMPH NODES: No cervical, supraclavicular, axillary, or inguinal lymphadenopathy. THYROID: No thyromegaly. No thyroid masses appreciated. HEART: Rate is regular. S1 and S2 present. No rubs, gallops, or murmurs. LUNGS: Good air entry bilaterally. Clear to auscultation bilaterally. No rales, rhonchi, or wheezing appreciated. EXTREMITIES: The patient has very mild pectus excavatum. SKIN: There is a well-healed scar on the left posterior aspect of the mid-back (status post PDA repair). PELVIS: Normal external female genitalia. No cervical motion tenderness. Specimen for Papanicolaou smear and GC chlamydia obtained. No adnexal enlargement. No uterine enlargement. BREASTS: Breasts are symmetric. Skin is smooth, warm, and dry. No nipple discharge or nipple retraction. No masses or lumps palpated. No axillary lymphadenopathy. ABDOMEN: Nondistended. Present bowel sounds in all 4 quadrants. Soft, nontender to palpation. No muscle guarding or rebound tenderness. No masses palpated. No suprapubic tenderness. No costovertebral angle tenderness. SPINE: No evidence of scoliosis. NEURO: Alert and oriented. Cranial nerves 2 through 12 are grossly intact. Brachial, knee, and Achilles reflexes are intact. Quality Assurance Practice Manager strength is normal bilaterally. Stable in Romberg pose. IMPRESSION / REPORT / PLAN 1) Complete physical exam for generally healthy 20-year-old 0, para 0, lady. I recommended monthly self-breast exams. We will notify the patient of Pap smear results and chlamydia testing. Counseled regarding safe sex practices. The patient's refill for hormonal contraceptive pill was done for 12 months in October 2009, and she has coverage through October 2010. I encouraged wearing seat belts regularly. I recommended regular physical activity at least 30 minutes on most days of the week, multivitamin supplementation. The patient's vaccinations are up to date. Jose A Waite M.D. pas Electronically Signed By:JOSE A WAITE MD On 02/16/2010 02:16 pm [facility] Document Id: [id number] documented in this encounter Miscellaneous Notes Miscellaneous - Jose A Waite M.D. - 02/16/2010 9:21 AM CDT Reminder Msg Document Contains Addenda Addendum by KENDAL ALMAGUER on 18 February 2010 11:49:24 CDT called patient with results Addendum by KENDAL ALMAGUER on 16 February 2010 17:08:27 CDT LMTCB From: JOSE A WAITE MD To: BETZAIDA KAUR DANA Sent: 02/16/2010 09:21:48 CDT ! Show up: 02/16/2010 09:21:00 CDT Subject: Reminder Msg Actions: Notify patient of results Due Date/Time: 02/16/2010 09:21:00 CDT Source: [facility] [employer] Document Id: [id number] Electronically signed by Conversion, [facility] Electrophysiology Nurse Practitioner [id number] at 10/09/2016 12:01 AM CDT Miscellaneous - Conversion, Historical Provider Ser - 02/14/2010 11:01 AM CDT Adult Card Cutter Helper Intake/History Adult Card Cutter Helper Intake/History Entered On: 02/14/2010 11:03 CDT Performed On: 02/14/2010 11:01 CDT by KENDAL ALMAGUER Intake Chief Complaint: PHYSICAL Temperature Oral: 36.8C(Converted to: 98.2DegF) Peripheral Pulse Rate: 60/min Systolic Blood Pressure: 104mmHg Diastolic Blood Pressure: 70mmHg NIBP Mean: 81mmHg Height: 174.00cm(Converted to: 5ft 9in, 68.50in) Actual Weight: 61.000kg(Converted to: 134lb 8oz) Dosing Weight Clinic: 61.00kg Clinic BSA: 1.72 Body Mass Index: 20kg/m2 KENDAL ALMAGUER C - 02/14/2010 11:01 CDT Subjective Pain Symptoms: No KENDAL ALMAGUER C - 02/14/2010 11:01 CDT Dependent Habits Tobacco Use/Currently Using: No KENDAL ALMAGUER Nick - 02/14/2010 11:01 CDT Allergies Allergies (Active) NKA Estimated Onset Date: Unspecified ; Created By: EASTON TREVIZO LPN; Reaction Status: Active ; Category: Drug ; Substance: NKA ; Type: Allergy ; Updated By: EASTON TREVIZO LPN; Reviewed Date: 12/06/2009 11:49 CDT Source: [employer] Document Id: [id number] CDT!17 documented in this encounter Plan of Treatment Not on filedocumented as of this encounter Procedures Procedure Name Priority Date/Time Associated Comments Diagnosis ZZPATHOLOGY NON-PARK INTERPRETER Routine 02/14/2010 12:00 Resu lts for this CYTOLOGY AM CDT procedure are i n the results section. documented in this encounter Results ZZPATHOLOGY NON-PARK INTERPRETER CYTOLOGY (02/14/2010 12:00 AM CDT) Specimen (Source) Anatomical Location Collection Method / Collectio n Time Received Time / Laterality Volume 02/14/2010 Narrative [facility] - 02/24/20 10 12:09 PM CDT PATIENT IMAGES Choose the Image button to view related documents. Historical Provider LAB PATHOLOGY/CYTOLOGY ORDER YOU Performing Organization Address City/State/ZIP Code Phon e Number [facility] documented in this encounter Visit Diagnoses Not on filedocumented in this encounter
--- OUTSIDE RECORDS SUMMARY | 2021-12-14 01:32 | XMS_ITS | Encounter Summary ---
:1990 Author Organization [facility] Address [address] [place] [address] Care Team Providers Name Role Phone Unavailable Primary Care Provider Unavailable Encounter Details Date Type Department Care Team Description 10/07/2007 Hospital Encounter HX [facility] Abrahna Block M.D. Social History Tobacco Use Types Packs/Day [...] week 03/05/2021 How often do you attend episcopal or zoroastrianism services? Never 03/05/2021 Do you belong to any clubs or organizations such as episcopal N o 03/05/2021 groups, unions, fraternal or [...] or slept in a intermediate (including now)? Sex Assigned at Date Recorded Female 01/16/2018 3:45 PM CDT documented as of this encounter Plan of Treatment Not on filedocumented as of this encounter Visit Diagnoses Not on filedocumented in this encounter
--- OUTSIDE RECORDS SUMMARY | 2021-12-14 01:32 | XMS_ITS | Encounter Summary ---
:1990 Author Organization [facility] Address [address] [place] [address] Care Team Providers Name Role Phone Unavailable Primary Care Provider Unavailable Encounter Details Date Type Department Care Team Description 09/29/2008 Hospital Encounter [facility]X [facility] Kayla Foster P.A. [address] [place] [address] (Wo rk) Social History Tobacco Use Types [...] How often do you attend shinto or gnosticism services? Never 03/05/2021 Do you [...]
--- OUTSIDE RECORDS SUMMARY | 2021-12-14 01:32 | XMS_ITS | Encounter Summary ---
:1990 Author Organization [facility] Address [address] [place] [address] Care Team Providers Name Role Phone Unavailable Primary Care Provider Unavailable Encounter Details Date Type Department Care Team Description 05/17/2008 Hospital En[facility] Kailey West P.ASymone-C. [address] [place] [address] (Wo rk) Social History Tobacco [...] How often do you attend jainism or protestant services? Never 03/05/2021 Do you [...]
--- OUTSIDE RECORDS SUMMARY | 2021-12-14 01:32 | XMS_ITS | Encounter Summary ---
:[address] [facility] Address [address] [place] [address] Care Team Providers Name Role Phone Unavailable Primary Care Provider Unavailable Encounter Details Date Type Department Care Team Description 01/23/2005 Hospital Encounter HX [facility] Wolfgang Leon M.D. [address] [place] [address] (Wo rk) Social History Tobacco Use Types [...] week 03/05/2021 How often do you attend pentecostalism or mandaen services? Never 03/05/2021 Do you belong to any clubs or organizations such as pentecostalism N o 03/05/2021 groups, unions, fraternal or [...]
--- OUTSIDE RECORDS SUMMARY | 2021-12-14 01:32 | XMS_ITS | Encounter Summary ---
:1990 Author Organization [facility] Address [address] [place] [address] Care Team Providers Name Role Phone Unavailable Primary Care Provider Unavailable Encounter Details Date Type Department Care Team Description 08/03/2009 Hospital Encounter [facility]X [facility] Rafiq Bragg, P.A. -C. [address] [facility] [place] [address] (Wo rk) Social History Tobacco [...] How often do you attend restoration or church services? Never 03/05/2021 Do you [...]
--- OUTSIDE RECORDS SUMMARY | 2021-12-14 01:32 | XMS_ITS | Encounter Summary ---
:1990 Author Organization [facility] Address [address] [place] [address] Care Team Providers Name Role Phone Unavailable Primary Care Provider Unavailable Encounter Details Date Type Department Care Team Description 04/12/2006 Hospital Encounter [facility]X [facility] Kayla Foster P.A. [address] [place] [address] (Wo rk) Social History Tobacco Use Types [...] often do you attend jehovah's witness or holiness services? Never 03/05/2021 Do you [...]
--- OUTSIDE RECORDS SUMMARY | 2021-12-14 01:32 | XMS_ITS | Encounter Summary ---
:1990 Author Organization [facility] Address [address] [place] [address] Care Team Providers Name Role Phone Unavailable Primary Care Provider Unavailable Encounter Details Date Type Department Care Team Description 10/14/2007 Hospital Encounter [facility]X [facility] Marcie Masters M.D. [address] [place] [address] (Wo rk) Social History Tobacco [...] How often do you attend caodaism or anglican services? Never 03/05/2021 Do you [...]
--- OUTSIDE RECORDS SUMMARY | 2021-12-14 01:32 | XMS_ITS | Encounter Summary ---
:1990 Author Organization [facility] Address [address] [place] [address] Care Team Providers Name Role Phone Unavailable Primary Care Provider Unavailable Encounter Details Date Type Department Care Team Description 07/12/2007 Hospital Encounter [facility]X [facility] Tiago Hauser M.D. [address] [place], [place] [address] (Wo rk) Social History [...] often do you attend oriental orthodox or yarsanism services? Never 03/05/2021 Do you [...]
--- OUTSIDE RECORDS SUMMARY | 2021-12-14 01:32 | XMS_ITS | Encounter Summary ---
:1990 Author Organization [facility] Address [address] [place] [address] Care Team Providers Name Role Phone Unavailable Primary Care Provider Unavailable Encounter Details Date Type Department Care Team Description 05/08/2011 Hospital Encounter [facility]X [facility] Carli Ponce M.D. [address] [place] [address] (Wo rk) Social History Tobacco [...] How often do you attend gnosticist or congregation services? Never 03/05/2021 Do you [...] Sign Reading Time Taken Comments Blood Pressure 108/66 05/08/2011 1:10 PM GLORY HOLE TENDER Pulse 76 05/08/2011 1:10 PM GLORY HOLE TENDER Temperature - - Respiratory Rate 16 05/08/2011 1:10 PM GLORY HOLE TENDER Oxygen Saturation - - Inhaled Oxygen Concentration - - Weight 63.5 kg (139 lb 15.9 oz) 05/08/2011 1:10 PM GLORY HOLE TENDER Height - - Body Mass Index - - documented in this encounter Progress Notes Edilma Ponce M.D. - 05/08/2011 12:00 AM CST [id number] 21-year-old female, 10-day history of coughing mostly at night but some during the day, not very productive. Does wake her up a couple to 3 times at night and is worse in the morning when she first gets up. PHYSICAL EXAM Vitals are fine per EMR Oropharynx appears clear. Ears looked fine. Neck negative for mass or nodes of significance. Lungs with some occasional rhonchi heard bilaterally, otherwise basically clear. IMPRESSION / REPORT / PLAN Somewhat prolonged upper respiratory infection/bronchitis PLAN: Amoxicillin, Tessalon. She does have a Zithromax allergy. Conservative measures are reviewed. Did recommend a vaporizer at night. Follow up as needed. Bryan Nelson Electronically Signed By: EDILMA PONCE MD On: 05/22/2011 04:37 PM Source: [facility]OLBEY[facility]RADSYS Document Id: [id number] Y HOLE TENDER documented in this encounter Miscellaneous Notes Miscellaneous - Flaco Baum L.P.N. - 05/08/2011 1:10 PM CST Adult Glory Hole Tender Intake/History Adult Glory Hole Tender Intake/History Entered On: 05/08/2011 13:14 GLORY HOLE TENDER Performed On: 05/08/2011 13:10 GLORY HOLE TENDER by FLACO BAUM Intake Chief Complaint : Cold and cough over the counter drugs have not helped. The cough has been mildly productive and is keeping the Pt up at night. Onset of Symptoms : x 10 days Temperature Oral : 36.7C(Converted to: 98.1DegF) Peripheral Pulse Rate : 76/min Respiratory Rate : 16/min Systolic Blood Pressure : 108mmHg Diastolic Blood Pressure : 66mmHg NIBP Mean : 80mmHg BP Location : Right upper extremity Actual Weight : 63.5kg(Converted to: 140lb 0oz) Dosing Weight Clinic : 63.50kg FLACO BAUM - 05/08/2011 13:10 GLORY HOLE TENDER General Info Information Given By : Patient Preferred Communication Mode : Verbal Languages : Djiboutian FLACO BAUM - 05/08/2011 13:10 GLORY HOLE TENDER Subjective Pain Symptoms : No FLACO BAUM - 05/08/2011 13:10 GLORY HOLE TENDER Dependent Habits Tobacco Use/Currently Using : No Exposure to Tobacco Smoke : Other: Never Smoking Status : Never smoker FLACO BAUM - 05/08/2011 13:10 GLORY HOLE TENDER Allergy Allergies (Active) Zithromax Z-Juan Estimated Onset Date: Unspecified ; Reactions: rash ; Created By: JOSE A JORGENSEN MD; Reaction Status: Active ; Category: Drug ; Substance: Zithromax Z-Juan ; Type: Allergy ; Updated By: JOSE A JORGENSEN MD; Reviewed Date: 05/08/2011 13:10 GLORY HOLE TENDER Source: [facility] [employer] Document Id: [id number] GLORY HOLE TENDER!22 Y HOLE TENDER documented in this encounter Plan of Treatment Not on filedocumented as of this encounter Visit Diagnoses Not on filedocumented in this encounter
--- OUTSIDE RECORDS SUMMARY | 2021-12-14 01:32 | XMS_ITS | Encounter Summary ---
:1990 Author Organization [facility] Address [address] [place] [address] Care Team Providers Name Role Phone Unavailable Primary Care Provider Unavailable Encounter Details Date Type Department Care Team Description 04/28/2012 Hospital Encounter [facility] Tiago Pitts M.D. [address] [place], [place] [address] (Wo rk) Social History [...] How often do you attend islam or muslim services? Never 03/05/2021 Do you [...] Sign Reading Time Taken Comments Blood Pressure 90/62 04/28/2012 11:47 AM GARNISHER Pulse 96 04/28/2012 11:47 AM GARNISHER Temperature - - Respiratory Rate 24 04/28/2012 11:47 AM GARNISHER Oxygen Saturation - - Inhaled Oxygen Concentration - - Weight 57.6 kg (126 lb 15.8 oz) 04/28/2012 11:47 AM GARNISHER Height 176 cm (5' 9.29) 04/28/2012 11:47 AM GARNISHER Body Mass Index 18.6 04/28/2012 11:47 AM GARNISHER documented in this encounter Progress Notes Julio Pitts M.D. - 04/28/2012 10:44 AM CST [id number] CHIEF COMPLAINT / REASON FOR VISIT Urgency, frequency, and dysuria. HISTORY OF PRESENT ILLNESS Claudia is a 22-year-old who was just here yesterday for a bronchitis and unfortunately today she developed urinary frequency, urgency, and some burning. She denies any STD issues. She has never had akidney infection. She has had very few bladder infections, but she has had them in the past. She hasno underlying lung disease, and Zithromax is her only medication intolerance. CURRENT MEDICATIONS Please see today's EMR ALLERGIES Please see today's EMR VITAL SIGNS Please see today's EMR PHYSICAL EXAMINATION GENERAL APPEARANCE: Well-appearing woman in no obvious distress. BACK: No CVA tenderness. LABORATORY: Urinalysis shows 10 to 25 whites. She does have some red blood cells in the urine, but she just started her period this morning. IMPRESSION / REPORT / PLAN Acute cystitis with positive urinalysis, urine culture pending. PLAN: Discussed true diagnosis is in the urine culture, however, she has enough classic symptoms andappearance in her urine to justify Macrobid 100 mg twice daily for the next 7 days. She does tend toget yeast infections, therefore, Diflucan on an 72-hour preventative program. I did put a refill. She is using an ofsa-odz-qianxqd pain medication for the urine and that is adequate. She is pushing adequate fluids. Followup as needed for nonresolution. Julio Pitts M.D./kash Electronically Signed By: JULIO PITTS MD On: 05/06/2012 08:07 AM Source: [facility] MHSDOLBEYNONRADSYS Document Id: [id number] ISHER documented in this encounter Miscellaneous Notes Miscellaneous - Julio Pitts M.D. - 05/01/2012 8:17 AM CST Results Notification Document Contains Addenda Addendum by FLACO BAUM on 01 May 2012 09:20:15 GARNISHER lmtcb From: JULIO PITTS MD To: Urgent Care Nurse Sent: 05/01/2012 08:17:21 GARNISHER ! Show up: 05/01/2012 14:17:21 [facility] Subject: Results Notification Actions: Notify patient of results Source: [facility] POWERCHART Document Id: [id number] Electronically signed by Nai [facility] Fish Roe Technician [id number] at 10/07/2016 3:57 PM CDT Miscellaneous - Julio Pitts M.D. - 04/28/2012 12:00 PM CST Ambulatory Patient Summary [address] [address] Visit Information Name: CLAUDIA MARTEL [facility] Number: [id number] Current Date: 04/28/2012 12:00:27 Physicians Attending Provider: JULIO PITTS MD Primary Care Provider: PCP, UNASSIGNED Your Medications Here is a list of your medications. It is important to take your medications as directed. Use a pillbox or chart to help remind you to take your medications. Please let your doctor or nurse know if you have problems taking your medications. Medication/Strength Dose Route Frequency Indications/Special Instructions/Comments fluconazole (Diflucan 150 mg oral tablet) 150 mg Oral every 72 hours nitrofurantoin (Macrobid 100 mg oral capsule) 100 mg Oral two times a day for 7 Days albuterol (Ventolin 90 mcg/inh inhalation aerosol with adapter) norgestimate-ethinyl estradiol (TriNessa oral tablet) 1 tab(s) [...] Date Time Location Reason Provider 05/02/2012 11:45 [facility] PHYSICAL Ritter ALUMINA REFINERY OPERATOR, Alia T Your Goals/Additional instructions: Source: [facility] POWERCHART Document Id: [id number] ISHER Miscellaneous - Julio Pitts M.D. - 04/28/2012 12:00 PM CST Ambulatory Depart Summary [address] [address] Visit Information Name: TAHMINAJAVEDGRANT LYNCH [facility] Number: [id number] Visit Date: 04/28/2012 12:00:27 Attending Provider: JULIO PITTS MD Primary Care Provider: PCP, UNASSIGNED CLAUDIA MARTEL has been given the following list of medications: Your Medications It is important to take your medications as directed. Use a pill box or chart to help remind you to take your medications. Please let your doctor or nurse know if you have problems taking your medications. Medication/Strength Dose Route Frequency Indications/Special Instructions/Comments fluconazole (Diflucan 150 mg oral tablet) 150 mg Oral every 72 hours nitrofurantoin (Macrobid 100 mg oral capsule) 100 mg Oral two times a day for 7 Days albuterol (Ventolin 90 mcg/inh inhalation aerosol with adapter) norgestimate-ethinyl estradiol (TriNessa oral tablet) 1 tab(s) Oral once a day Attention: If you have any medications at home that are not on this list, DO NOT take them until youcontact your provider for clarification. Additional Information: Source: [facility] POWERCHART Document Id: [id number] ISHER Miscellaneous - Conversion, Historical Provider Ser - 04/28/2012 11:47 AM GARNISHER Adult Supervisor Backfilling Intake/History Adult Supervisor Backfilling Intake/History Entered On: 04/28/2012 11:52 GARNISHER Performed On: 04/28/2012 11:47 GARNISHER by LEEANNE SHER Intake Chief Complaint : UTI - burning, frequency Onset of Symptoms : today Temperature Oral : 36.6C(Converted to: 97.9DegF) Peripheral Pulse Rate : 96/min Respiratory Rate : 24/min (HI) Heart Rhythm : Regular Systolic Blood Pressure : 90mmHg (LOW) Diastolic Blood Pressure : 62mmHg NIBP Mean : 71mmHg BP Location : Right upper extremity Blood Pressure Cuff Size : Regular Height : 176cm(Converted to: 5ft 9inch(es), 69.29inch(es)) Actual Weight : 57.6kg(Converted to: 127lb 0oz) Dosing Weight Clinic : 57.60kg Clinic BSA : 1.68 Body Mass Index : 18.60kg/m2 LEEANNE SHER - 04/28/2012 11:47 GARNISHER Subjective Pain Symptoms : No LEEANNE SHER - 04/28/2012 11:47 GARNISHER Dependent Habits Tobacco Use/Currently Using : No Exposure to Tobacco Smoke : Other: Never Smoking Status : Never smoker LEEANNE SHER - 04/28/2012 11:47 GARNISHER Allergy Allergies (Active) Zithromax Z-Juan Estimated Onset Date: Unspecified ; Reactions: rash ; Created By: JOSE A JORGENSEN MD; Reaction Status: Active ; Category: Drug ; Substance: Zithromax Z-Juan ; Type: Allergy ; Updated By: JOSE A JORGENSEN MD; Reviewed Date: 04/28/2012 11:47 GARNISHER Source: [facility] POWERCHART Document Id: [id number] documented in this encounter Plan of Treatment Not on filedocumented as of this encounter Procedures Procedure Name Priority Date/Time Associated Comments Diagnosis URINALYSIS WITH Routine 04/28/2012 11:10 Results for this MICROSCOPIC AM GARNISHER procedure are i n the results section. BACTERIAL CULTURE, Routine 04/28/2012 11:10 Resul ts for this AEROBIC, URINE AM GARNISHER procedure are in the results section. documented in this encounter Results (ABNORMAL) Urinalysis, Complete, Includes Microscopic (04/28/2012 11:10 AM GARNISHER) Patholo gist Method Time Signature Source Clean Void POWERCHART Urine HXUr Color STRAW POWERCHART Glucose Negative Negative POWERCHART HXBILIRUBIN Negative Negative POWERCHART Ketones, QL(U) Negative Negative POWERCHART Specific <=1.005 >=1.030 POWERCHART [place], POCT, U pH, POCT, Urine 6.0 8.5 POWERCHART Protein, Ur, Dip Negative Negative POWERCHART Urobilinogen 0.2 1.0 POWERCHART HXNITRITE Negative Negative POWERCHART HXBLOOD Large (A) Negative POWERCHART Leukocyte Moderate (A) Negative POWERCHART Esterase HXUr WBC 10-25 (A) 0 - 5 POWERCHART Red Blood Cell 11-20 0 - 3 POWERCHART Clump, Urine HXUr Bacteria Few (A) Negative POWERCHART HXUr Epithelial Few Negative POWERCHART Specimen (Source) Anatomical Collection Method Collection Time Re ceived Time Location / / Volume Laterality Urine 04/28/2012 11:10 AM GARNISHER Julio Pitts M.D. LAB URINE ORDERABLES Performing Organization Address City/State/ZIP Code Phon e Number POWERCHART (ABNORMAL) Bacterial Culture, Aerobic, Urine (04/28/2012 11:10 AM GARNISHER) Analysis Performed At Path logist Time Signature Bacterial EC 4 POWERCHART Culture, (POSITIVE) Aerobic, Urine Comment: Streptococcus agalactiae (Group B Strep) isolates that are Sensitive to Erythromycin should be treated as Resist ant, and Erythromycin should NOT be used as a drug of choice for treatment per [employer] Technical Bulletin. HXPre GNR POWERCHART Comment: 50,000 - 100,000 cfu/mL Gram Negative Ro ds Identification and susceptibility to fol low. HXFinal EC POWERCHART Comment: 50,000 - 100,000 cfu/mL Escheri nando coli Specimen Anatomical Collection Method Collection Time Receive d Time (Source) Location / / Volume Laterality Urine 04/28/2012 11:10 04/28/2012 AM GARNISHER 11:10 AM GARNISHER Organism Antibiotic Method Susceptibility Escherichia coli Amoxicillin + Clavulanate SUSCEPTIBILITY, LUZ 4 : Susceptible (MCG/ML) Escherichia coli Ampicillin SUSCEPTIBILITY, LUZ >=32: Resis tant (MCG/ML) Escherichia coli Aztreonam SUSCEPTIBILITY, LUZ <=1: Suscep tible (MCG/ML) Escherichia coli Cefazolin SUSCEPTIBILITY, LUZ <=4: Suscep tible (MCG/ML) Escherichia coli Cefepime SUSCEPTIBILITY, LUZ <=1: Suscep tible (MCG/ML) Escherichia coli Cefoxitin SUSCEPTIBILITY, LUZ <=4: Suscep tible (MCG/ML) Escherichia coli Ceftazidime SUSCEPTIBILITY, LUZ <=1: Suscep tible (MCG/ML) Escherichia coli Ceftriaxone SUSCEPTIBILITY, LUZ <=1: Suscep tible (MCG/ML) Escherichia coli Cefuroxime/Axetil SUSCEPTIBILITY, LUZ 4: Suscep tible (MCG/ML) Escherichia coli Cefuroxime SUSCEPTIBILITY, LUZ 4: Suscepti ble (MCG/ML) Escherichia coli Cephalothin SUSCEPTIBILITY, LUZ 16: Interme diate (MCG/ML) Escherichia coli Ciprofloxacin SUSCEPTIBILITY, ULZ <=0.25: Gudelia ceptible (MCG/ML) Escherichia coli Gentamicin SUSCEPTIBILITY, LUZ <=1: Suscep tible (MCG/ML) Escherichia coli Levofloxacin SUSCEPTIBILITY, LUZ <=0.12: Gudelia ceptible (MCG/ML) Escherichia coli Nitrofurantoin SUSCEPTIBILITY, LUZ <=16: Susce ptible (MCG/ML) Escherichia coli Norfloxacin SUSCEPTIBILITY, LUZ <=0.5: Susc eptible (MCG/ML) Escherichia coli Trimethoprim + SUSCEPTIBILITY, LUZ >=320: Resi stant Sulfamethoxazole (MCG/ML) Escherichia coli Tetracycline SUSCEPTIBILITY, LUZ <=1: Suscep tible (MCG/ML) Escherichia coli Tobramycin SUSCEPTIBILITY, LUZ <=1: Suscep tible (MCG/ML) Julio Pitts M.D. LAB MICROBIOLOGY - GENERAL O RDERABLES Performing Organization Address City/State/ZIP Code Phon e Number POWERCHART documented in this encounter Visit Diagnoses Not on filedocumented in this encounter
--- OUTSIDE RECORDS SUMMARY | 2021-12-14 01:32 | XMS_ITS | Encounter Summary ---
:1990 Author Organization [facility] Address [address] [place] [address] Care Team Providers Name Role Phone Unavailable Primary Care Provider Unavailable Encounter Details Date Type Department Care Team Description 07/19/2006 Hospital Encounter [facility] Tiago Hauser M.D. [address] [place], [place] [address] (Wo rk) Social History [...] How often do you attend moravian or latter day services? Never 03/05/2021 Do [...]
--- OUTSIDE RECORDS SUMMARY | 2021-12-14 01:32 | XMS_ITS | Encounter Summary ---
:1990 Author Organization [facility] Address [address] [place] [address] Care Team Providers Name Role Phone Unavailable Primary Care Provider Unavailable Encounter Details Date Type Department Care Team Description 02/16/2009 Hospital Encounter [facility] Flora Waite M.D. [address] [place] [address] 08 Social History Tobacco Use Types Packs/Day [...] How often do you attend taoist or advent services? Never 03/05/2021 Do you [...]
--- OUTSIDE RECORDS SUMMARY | 2021-12-14 01:32 | XMS_ITS | Encounter Summary ---
:1990 Author Organization [facility] Address [address] [place] [address] Care Team Providers Name Role Phone Unavailable Primary Care Provider Unavailable Encounter Details Date Type Department Care Team Description 11/24/2010 Hospital Encounter [facility] Carli Ponce M.D. [address] [place] [address] (Wo rk) Social History Tobacco [...] How often do you attend judaism or restorationism services? Never 03/05/2021 Do you belong to [...] or slept in a longterm (including now)? Sex Assigned at Date Recorded Female 01/16/2018 3:45 PM CDT documented as of this encounter Progress Notes Edilma Ponce M.D. - 11/24/2010 12:00 AM CDT [id number] HISTORY OF PRESENT ILLNESS This 20-year-old female has had a 3-week history of coughing pretty significantly. It keeps her up at night. No other specific concerns or problems. VITAL SIGNS TEMPERATURE: 36.9 PHYSICAL EXAM GENERAL: The patient is awake and alert and does not appear in acute distress. HEENT: TMs are fine on exam. Oropharynx is clear. NECK: Negative for mass or nodes of significance. LUNGS: Clear without accessory muscle use. IMPRESSION/REPORT/PLAN 1) Cough/prolonged upper respiratory infection and the possibility of this representing a little bit of allergy-type phenomenon also. PLAN: We are going to go ahead and cover her with Zithromax empirically. Tessalon for cough. Trial of antihistamines suggested. Follow up as needed if not improving or if other concerns or problems should arise. Edilma Ponce M.D. [facility] Electronically Signed By: EDILMA PONCE MD On: 11/29/2010 07:02 PM Source: [facility] MHSDOLBEYNONRADSYS Document Id: [id number] documented in this encounter Miscellaneous Notes Miscellaneous - Harry Jara L.P.N. - 11/24/2010 7:28 PM CDT Adult Bilingual Trainer Intake/History Adult Bilingual Trainer Intake/History Entered On: 11/24/2010 19:31 CDT Performed On: 11/24/2010 19:28 CDT by HARRY JARA Intake Chief Complaint: cough Onset of Symptoms: 3 weeks Ambulatory Intake Additional Information: was put on Guaifenesin from her college doctor for a coughand is done with that. Was also put on Predinsone for cough and possibly shingles and is done with that too. Temperature Oral: 36.9C(Converted to: 98.4DegF) Peripheral Pulse Rate: 98/min Respiratory Rate: 22/min (HI) Systolic Blood Pressure: 102mmHg Diastolic Blood Pressure: 58mmHg NIBP Mean: 73mmHg BP Location: Right upper extremity Actual Weight: 60.100kg(Converted to: 132lb 8oz) Dosing Weight Clinic: 60.10kg HARRY JARA - 11/24/2010 19:28 CDT Subjective Pain Symptoms: No HARRY JARA - 11/24/2010 19:28 CDT Dependent Habits Tobacco Use/Currently Using: No HARRY JARA - 11/24/2010 19:28 CDT Allergy Allergies (Active) NKA Estimated Onset Date: Unspecified ; Created By: EASTON TREVIZO LPN; Reaction Status: Active ; Category: Drug ; Substance: NKA ; Type: Allergy ; Updated By: EASTON TREVIZO LPN; Reviewed Date: 11/24/2010 19:26 CDT Source: [facility] [employer] Document Id: [id number] documented in this encounter Plan of Treatment Not on filedocumented as of this encounter Procedures Procedure Name Priority Date/Time Associated Comments Diagnosis ZZPATHOLOGY NON-DIETARY DIRECTOR Routine 02/16/2009 12:00 Resu lts for this CYTOLOGY AM CDT procedure are i n the results section. ZZPATHOLOGY NON-DIETARY DIRECTOR Routine 02/17/2008 12:00 Resu lts for this CYTOLOGY AM CDT procedure are i n the results section. ZZPATHOLOGY NON-DIETARY DIRECTOR Routine 10/19/2006 12:00 Resu lts for this CYTOLOGY AM CDT procedure are i n the results section. documented in this encounter Results ZZPATHOLOGY NON-DIETARY DIRECTOR CYTOLOGY (02/16/2009 12:00 AM CDT) Specimen (Source) Anatomical Location Collection Method / Collectio n Time Received Time / Laterality Volume 02/16/2009 Narrative [facility] - 11/24/19 12 2:00 PM CDT PATIENT IMAGES Choose the Image button to view related documents. Historical Provider LAB PATHOLOGY/CYTOLOGY ORDER YOU Performing Organization Address City/State/ZIP Code Phon e Number [facility] ZZPATHOLOGY NON-DIETARY DIRECTOR CYTOLOGY (02/17/2008 12:00 AM CDT) Specimen (Source) Anatomical Location Collection Method / Collectio n Time Received Time / Laterality Volume 02/17/2008 [facility] - 11/24/19 12 2:00 PM CDT PATIENT IMAGES Choose the Image button to view related documents. Historical Provider LAB PATHOLOGY/CYTOLOGY ORDER YOU Performing Organization Address City/State/ZIP Code Phon e Number [facility] ZZPATHOLOGY NON-DIETARY DIRECTOR CYTOLOGY (10/19/2006 12:00 AM CDT) Specimen (Source) Anatomical Location Collection Method / Collectio n Time Received Time / Laterality Volume 10/19/2006 Narrative [facility] - 11/24/19 12 2:00 PM CDT PATIENT IMAGES Choose the Image button to view related documents. Historical Provider LAB PATHOLOGY/CYTOLOGY ORDER YOU Performing Organization Address City/State/ZIP Code Phon e Number [facility] documented in this encounter Visit Diagnoses Not on filedocumented in this encounter
--- OUTSIDE RECORDS SUMMARY | 2021-12-14 01:32 | XMS_ITS | Encounter Summary ---
:1990 Author Organization [facility] Address [address] [place] [address] Care Team Providers Name Role Phone Unavailable Primary Care Provider Unavailable Encounter Details Date Type Department Care Team Description 03/22/2006 Hospital Encounter [facility] Kayla Foster P.A. [address] [place] [address] (Wo rk) Social History Tobacco Use Types [...] How often do you attend jainism or baptism services? Never 03/05/2021 Do you belong to [...]
--- OUTSIDE RECORDS SUMMARY | 2021-12-14 01:32 | XMS_ITS | Encounter Summary ---
:1990 Author Organization [facility] Address [address] [place] [address] Care Team Providers Name Role Phone Unavailable Primary Care Provider Unavailable Encounter Details Date Type Department Care Team Description 08/13/2005 Hospital Encounter [facility] Carli Zamora M.D. [address] [place] [address] (Wo rk) Social History Tobacco [...] week 03/05/2021 How often do you attend samaritan or evangelical services? Never 03/05/2021 Do you belong to any clubs or organizations such as samaritan N o 03/05/2021 groups, unions, fraternal or [...]
--- OUTSIDE RECORDS SUMMARY | 2021-12-14 01:32 | XMS_ITS | Encounter Summary ---
:1990 Author Organization [facility] Address [address] [place] [address] Care Team Providers Name Role Phone Unavailable Primary Care Provider Unavailable Encounter Details Date Type Department Care Team Description 06/17/2007 Hospital Encounter [facility] Tiago Barrera M.D. [address] [place], [place] [address] (Wo rk) Social History [...] How often do you attend hoahaoism or sabianist services? Never 03/05/2021 Do you belong to [...]
--- OUTSIDE RECORDS SUMMARY | 2021-12-14 01:32 | XMS_ITS | Encounter Summary ---
:1990 Author Organization [facility] Address [address] [place] [address] Care Team Providers Name Role Phone Unavailable Primary Care Provider Unavailable Encounter Details Date Type Department Care Team Description 08/29/2007 Hospital Encounter [facility] Marcie Masters M.D. [address] [place] [address] (Wo rk) Social History Tobacco [...] How often do you attend orthodox or orthodox services? Never 03/05/2021 Do you [...]
--- OUTSIDE RECORDS SUMMARY | 2021-12-14 01:32 | XMS_ITS | Encounter Summary ---
:1990 Author Organization [facility] Address [address] [place] [address] Care Team Providers Name Role Phone Unavailable Primary Care Provider Unavailable Encounter Details Date Type Department Care Team Description 02/06/2006 Hospital Encounter [facility] Wolfgang Leon M.D. [address] [place], [place] [address] (Wo rk) Social History [...] How often do you attend yazidi or religion services? Never 03/05/2021 Do you [...]
--- OUTSIDE RECORDS SUMMARY | 2021-12-14 01:32 | XMS_ITS | Encounter Summary ---
:1990 Author Organization [facility] Address [address] [place] [address] Care Team Providers Name Role Phone Unavailable Primary Care Provider Unavailable Encounter Details Date Type Department Care Team Description 04/28/2010 Hospital Encounter [facility] Flora Waite M.D. [address] [place] [address] 08 Social History Tobacco Use Types Packs/Day [...] How often do you attend yazidi or faith services? Never 03/05/2021 Do you [...] documented as of this encounter Progress Notes Jose A Waite M.D. - 04/28/2010 12:00 AM CST [id number] HISTORY OF PRESENT ILLNESS Claudia is a pleasant 20-year-old lady who presents today with complaints of facial pain and pressure, thick nasal discharge, and cough. Her symptoms started 3 days ago. She is afebrile. She is unaware of any sick contacts. She denies wheezing, denies shortness of breath. ALLERGIES No known drug allergies. CURRENT MEDICATIONS Tri-Previfem 1 pill daily. Multivitamin supplementation. PAST MEDICAL / SURGICAL HISTORY 1) History of whiplash injury to the neck. 2) History of PDA with surgical repair. 3) Revision septoplasty. FAMILY HISTORY Not reviewed. SOCIAL HISTORY Patient resides in [place]. She does not smoke, exercises moderately. SYSTEMS REVIEW ENT: Per history of present illness. RESPIRATORY: Per history of present illness. GI: Denies nausea, vomiting, abdominal pain, constipation, diarrhea, melena, hematochezia, and weight loss. MUSCULOSKELETAL: Denies pain, swelling, and redness of joints. DERMATOLOGIC: Denies skin rashes and denies lesions. VITAL SIGNS TEMP: 37.0 degreesC PULSE: 104 RESP RATE: 14/min BLOOD PRESSURE: 118/70 WEIGHT: 63.1 PHYSICAL EXAM GENERAL: The patient is pleasant, in no distress. EYES: Extraocular movements are intact. Sclerae are anicteric. Pupillary reactions are equal to light. Eyelids and eyelashes are intact. ENT: External ears and external canals are intact. Tympanic membranes bilaterally are pearly juarez with normal light reflexes and good anatomic landmarks. No tympanic bulging or erythema appreciated. Nose: Nasal mucosa erythematous, thick whitish discharge present. There is tenderness to palpation over frontal and maxillary sinuses. Neck is supple with no lymphadenopathy. HEART: Rate is regular. S1 and S2 present. No rubs, gallops, or murmurs. LUNGS: Good air entry bilaterally. Clear to auscultation bilaterally. No rales, rhonchi, or wheezing appreciated. EXTREMITIES: Symmetric. IMPRESSION / REPORT / PLAN 1) Sinusitis. 2) Cough. PLAN: Patient is afebrile, most likely her symptoms are related to viral sinusitis and early viral bronchitis. For sinusitis, we will recommend NeilMed's sinus rinse daily and Flonase 1 puff into each nostril daily. Patient was advised to return for reassessment should she develop fevers or any symptoms worsen. She verbalized understanding and agreed to the plan. 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 Lawyer Intake/History Entered On: 04/28/2010 9:50 REGIONAL GUIDE Performed On: 04/28/2010 9:47 REGIONAL GUIDE by ORACIO LEI Intake Chief Complaint: C/O CONGESTION, COUGH (PRODUCTIVE) & FACIAL PRESSURE Temperature Oral: 37.0C(Converted to: 98.6DegF) Peripheral Pulse Rate: 104/min (HI) Respiratory Rate: 14/min Systolic Blood Pressure: 118mmHg Diastolic Blood Pressure: 70mmHg NIBP Mean: 86mmHg BP Location: Right upper extremity Actual Weight: 63.100kg(Converted to: 139lb 2oz) Dosing Weight Clinic: 63.10kg ORACIO LEI - 04/28/2010 9:47 REGIONAL GUIDE Subjective Pain Symptoms: Yes ORACIO LEI - 04/28/2010 9:47 REGIONAL GUIDE Pain Pain Assessment Grid Pain 1 Location: Other: FACIAL Laterality: Bilateral ORACIO LEI - 04/28/2010 9:47 REGIONAL GUIDE Dependent Habits Tobacco Use/Currently Using: No ORACIO LEI - 04/28/2010 9:47 REGIONAL GUIDE Allergies Allergies (Active) NKA Estimated Onset Date: Unspecified ; Created By: EASTON TREVIZO LPN; Reaction Status: Active ; Category: Drug ; Substance: NKA ; Type: Allergy ; Updated By: EASTON TREVIZO LPN; Reviewed Date: 04/28/2010 9:46 REGIONAL GUIDE Source: [facility] Cloudmark Document Id: [id number] REGIONAL GUIDE!21 documented in this encounter Plan of Treatment Not on filedocumented as of this encounter Visit Diagnoses Not on filedocumented in this encounter
--- OUTSIDE RECORDS SUMMARY | 2021-12-14 01:32 | XMS_ITS | Encounter Summary ---
:1990 Author Organization [facility] Address [address] [place] [address] Care Team Providers Name Role Phone Unavailable Primary Care Provider Unavailable Encounter Details Date Type Department Care Team Description 12/06/2009 Hospital Encounter [facility] Flora Waite M.D. [address] [place] [address] 08 Social History Tobacco Use Types Packs/Day [...] How often do you attend sabianism or rastafarian services? Never 03/05/2021 Do you belong to [...] Progress Notes Jose A Waite M.D. - 12/06/2009 12:00 AM CDT [id number] HISTORY OF PRESENT ILLNESS Claudia is a 19-year-old lady who presents today with complaints of intermittent diarrhea over the last 2 to 3 weeks. She states that her mother had similar symptoms last month and now she is improving. The patient denies any associated abdominal pain or abdominal cramping. She denies melena, hematochezia, nausea, vomiting, abdominal pain, poor appetite, or weight loss. The patient states that back in September, she was visiting [facility], but she had been doing fine up until 2 weeks ago. She noticed that she has diarrhea sometimes after eating cereal in the morning, but has not noticed diarrhea associated with intake of any other gluten-containing foods, including bread, bakery products, pasta, pizza, or sandwiches. She denies fevers, chills, skin rashes, or petechiae. ALLERGIES None. PAST MEDICAL / SURGICAL HISTORY 1) No chronic underlying diseases. CURRENT MEDICATIONS Tri-Previfem 1 pill daily. FAMILY HISTORY There is a history of intermittent diarrhea in the patient's mother, resolved 2 weeks ago. SYSTEMS REVIEW As per history of present illness. VITAL SIGNS TEMP: 37.1 degrees C PULSE: 72 RESP RATE: 16 BLOOD PRESSURE: 112/68 WEIGHT: 58.7 kg PHYSICAL EXAM GENERAL: The patient is in no distress, alert, oriented, and cooperative with the exam. SKIN: No rashes or gross lesions appreciated on the skin. NECK: Neck is supple with no lymphadenopathy. HEART: Rate is regular. S1 and S2 present. No rubs, gallops, or murmurs. LUNGS: Good air entry bilaterally. Clear to auscultation bilaterally. No rales, rhonchi, or wheezing appreciated. ABDOMEN: Nondistended. Present bowel sounds in all 4 quadrants. Soft, nontender to palpation. No muscle guarding or rebound tenderness. No masses palpated. No suprapubic tenderness. No costovertebral angle tenderness. EXTREMITIES: Symmetric. IMPRESSION / REPORT / PLAN 1) Diarrhea. The patient's symptoms are very mild and intermittent. It does not sound quite certain that she may have a gluten intolerance, as her diarrhea is linked to consumption of cereal only occasionally, and no other gluten-containing foods are causing similar symptoms. We will obtain stool cultures, stool for ova and parasites, stool for cryptosporidium, stool leukocytes, and stools for Hemoccults. I will recommend that she keep a food diary to see if any other foods trigger her symptoms. She may try, symptomatically, Imodium. We will consider workup for celiac disease if the symptoms worsen or persist. For now, we will recommend symptomatic treatment. Jose A Waite M.D. nac Electronically Signed By:JOSE A WAITE MD On 12/08/2009 09:02 AM Source: [facility] MHSDOLBEYNONRADSYS Document Id: [id number] documented in this encounter Miscellaneous Notes Miscellaneous - Jose A Waite M.D. - 12/13/2009 8:14 AM CDT Reminder Msg Document Contains Addenda Addendum by KENDAL ALMAGUER on 13 December 2009 08:21:08 CDT NOTIFIED PATIENT From: JOSE A WAITE MD To: KENDAL ALMAGUER Sent: 12/13/2009 08:14:08 CDT ! Show up: 12/13/2009 08:13:00 CDT Subject: Reminder Msg Actions: Notify patient of results Due Date/Time: 12/13/2009 08:13:00 CDT Source: [facility] POWERCHART Document Id: [id number] Miscellaneous - Jose A Waite M.D. - 12/10/2009 11:40 AM CDT Reminder Msg Document Contains Addenda Addendum by JOSE A WAITE MD on 02 February 2010 13:57:39 CDT Addendum by RAFAEL STAHL MD on 02 February 2010 12:59:44 CDT From: RAFAEL STAHL MD To: JOSE A WAITE MD; Sent: 02/02/2010 12:59:44 CDT Subject: RE: Reminder Msg who is this? Addendum by KENDAL ALMAGUER on 10 December 2009 15:00:01 CDT TALKED WITH PT, LABS CAME IN NEGATIVE, SHE'S STILL HAVING CRAMPING AND OCCASIONAL DIARRHEA. SHE WANTS TO KNOW WHAT SHE SHOULD DO NOW. DR. WAITE RECOMMENDS A COLONOSCOPY. WHEN I CALLED HER BACK WITH THIS, I COULDN'T REACH HER From: JOSE A WAITE MD To: KENDAL ALMAGUER JACK A MD Sent: 12/10/2009 11:40:01 CDT ! Show up: 12/10/2009 11:39:00 CDT Subject: Reminder Msg Actions: Notify patient of results Due Date/Time: 12/10/2009 11:39:00 CDT Source: [facility] Ahead Document Id: [id number] Miscellaneous - Jose A Waite M.D. - 12/09/2009 11:31 AM CDT Reminder Msg Document Contains Addenda Addendum by KENDAL ALMAGUER on 09 December 2009 14:05:55 CDT FARIAS DPT WIT RESULTS From: JOSE A WAITE MD To: KENDAL ALMAGUER Sent: 12/09/2009 11:31:27 CDT ! Show up: 12/09/2009 11:30:00 CDT Subject: Reminder Msg Actions: Notify patient of results Due Date/Time: 12/09/2009 11:30:00 CDT Source: [facility] ViSSeeCHART Document Id: [id number] Electronically signed by Conversion, [facility] [employer]Rd Grade Teacher [id number] at 10/09/2016 1:37 AM CDT Miscellaneous - Jose A Waite M.D. - 12/08/2009 1:08 PM CDT Reminder Msg Document Contains Addenda Addendum by KENDAL ALMAGUER on 08 December 2009 13:50:04 CDT CALLED PT WITH RESULTS From: JOSE A WAITE MD To: KENDAL ALMAGUER Sent: 12/08/2009 13:08:44 CDT ! Show up: 12/08/2009 13:08:00 CDT Subject: Reminder Msg Actions: Notify patient of results Due Date/Time: 12/08/2009 13:08:00 CDT Source: 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 missing a couple days of work due to it Temperature Oral: 37.1DegC(Converted to: 98.8DegF) Peripheral Pulse Rate: 72bpm Respiratory Rate: 16br/min Systolic Blood Pressure: 112mmHg Diastolic Blood Pressure: 68mmHg NIBP Mean: 83mmHg BP Location: Right upper extremity Actual Weight: 58.700kg(Converted to: 129.411lb) Dosing Weight Clinic: 58.70kg EASTON TREVIZO LPN - 12/06/2009 11:46 CDT Subjective Pain Symptoms: No EASTON TREVIZO LPN - 12/06/2009 11:46 CDT Dependent Habits Tobacco Use/Currently Using: No EASTON TREVIZO LPN - 12/06/2009 11:46 CDT Allergies Source: [facility] POWERCHART Document Id: [id number] CDT!16 documented in this encounter Plan of Treatment Not on filedocumented as of this encounter Visit Diagnoses Not on filedocumented in this encounter
--- OUTSIDE RECORDS SUMMARY | 2021-12-14 01:32 | XMS_ITS | Encounter Summary ---
:1990 Author Organization [facility] Address [address] [place] [address] Care Team Providers Name Role Phone Unavailable Primary Care Provider Unavailable Encounter Details Date Type Department Care Team Description 02/17/2008 Hospital Encounter [facility] Flora Waite M.D. [address] [place] [address] 08 Social History Tobacco Use Types Packs/Day [...] week 03/05/2021 How often do you attend confucianism or taoist services? Never 03/05/2021 Do you belong to any clubs or organizations such as confucianism N o 03/05/2021 groups, unions, fraternal or [...]
--- OUTSIDE RECORDS SUMMARY | 2021-12-14 01:32 | XMS_ITS | Encounter Summary ---
:1990 Author Organization [facility] Address [address] [place] [address] Care Team Providers Name Role Phone Unavailable Primary Care Provider Unavailable Encounter Details Date Type Department Care Team Description 07/10/2006 Hospital Encounter [facility] Abrahan Block M.D. Social History Tobacco Use Types [...] How often do you attend congregation or religion services? Never 03/05/2021 Do you [...]
--- OUTSIDE RECORDS SUMMARY | 2021-12-14 01:32 | XMS_ITS | Encounter Summary ---
:1990 Author Organization [facility] Address [address] [place] [address] Care Team Providers Name Role Phone Unavailable Primary Care Provider Unavailable Encounter Details Date Type Department Care Team Description 04/16/2007 Hospital Encounter [facility] Tiago Hauser M.D. [address] [place], [place] [address] (Wo rk) Social History [...] How often do you attend islam or gnosticism services? Never 03/05/2021 Do you [...]
--- OUTSIDE RECORDS SUMMARY | 2021-12-14 01:32 | XMS_ITS | Encounter Summary ---
:1990 Author Organization [facility] Address [address] [place] [address] Care Team Providers Name Role Phone Unavailable Primary Care Provider Unavailable Encounter Details Date Type Department Care Team Description 11/18/2004 Hospital Encounter HX NO MAPPING Provider, Historical Social History Tobacco Use Types Packs/Day Years [...]
--- OUTSIDE RECORDS SUMMARY | 2021-12-14 01:32 | XMS_ITS | Encounter Summary ---
:1990 Author Organization [facility] Address [address] [place] [address] Care Team Providers Name Role Phone Unavailable Primary Care Provider Unavailable Encounter Details Date Type Department Care Team Description 05/02/2011 Hospital Encounter [facility] Riri Toussaint, SERGE, R.N. [address] [place] [address] (Wo rk) Social History Tobacco Use Types [...] How often do you attend denominational or jainism services? Never 03/05/2021 Do you [...] documented as of this encounter H&P Notes Riir Toussaint APRN, R.N. - 05/02/2011 12:00 AM CST [id number] CHIEF COMPLAINT / REASON FOR VISIT 1) A 21-year-old young woman here for general physical exam. 2) control refill. SYSTEMS REVIEW She notes increased achiness in her feet. She has orthotics that [place] [address] Ronnie Man. 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 Wondering if she maybe she needs to get back to Dr. Man. She denies any swelling or any other loss of function in her feet. She does routinely exercise also, running. She denies any concerns whatsoever. Otherwise, negative systems review. PAST MEDICAL / SURGICAL HISTORY 1) History of patent ductus arteriosis with surgical repair at age 11. 2) Septoplasty and maxillary antrostomy. 3) Adenoidectomy. SOCIAL HISTORY She is going to school at [employer] in [place], [place], doing very well. Does have a significant other. Would like a refill on her control. HABITS: She does not smoke. She does not drink alcohol. She exercises routinely. Wears her seat belt. Has a smoke detector and carbon monoxide detector. FAMILY HISTORY No change. No history of cancers, hypertension, hyperlipidemia or diabetes. GYNECOLOGICAL HISTORY: 0, para 0. Last menstrual period was April 27. Last pelvic exam February 2010. She has been using TriNessa. CURRENT MEDICATIONS Reviewed without change per EMR. ALLERGIES Reviewed without change per EMR. VITAL SIGNS Reviewed without change per EMR. PHYSICAL EXAM GENERAL: Alert, interactive. In no acute distress. HEAD: Normocephalic. EYES: PERRLA. ENT: Nares moist, nonerythematous. Neck is supple. No lymphadenopathy. Tympanic membranes with good light LUNGS: Clear. HEART: Heart rate is regular. EXTREMITIES: Without deformity or limitation of motion. SKIN: Without lesions. Very clear marginated scar on the left posterior aspect of the mid back due to her surgical repair of PDA. Tattoos at the top of her back and on the right side of her trunk. NEURO: Cranial nerves II-XII are grossly intact. Deep tendon reflexes are brisk. ABDOMEN: Soft, nondistended. No hepatosplenomegaly or masses. BREASTS: Without nipple discharge, masses or axillary tenderness. PELVIS: Normal female external genitalia. Shaved perineum. Cervix has normal transformation zone. Pap smear and GC/chlamydia obtained. Bimanual exam without tenderness, masses or fullness. IMPRESSION / REPORT / PLAN 1) Complete physical for generally healthy 21-year-old woman. Pap and GC/chlamydia were obtained. TriNessa refilled. 2) Increased foot discomfort. She will go ahead and talk with Dr. Man about making new orthotics for her other shoes. Having trouble moving them from shoe to shoe. I think she just needs to wear them more frequently. No sign of any other debility. She was encouraged to continue with her routine care, diet, exercise, and following up in 1 year for further evaluation and care, and she agrees with this plan. Riri Toussaint A.P.R.N., cla F.N.Lori, C.D.E. Electronically Signed By: RIRI TOUSSAINT On: 05/05/2011 03:14 PM Source: [facility] MHSDOLBEYNONRADSYS Document Id: [id number] CONTROL DIRECTOR documented in this encounter Miscellaneous Notes Miscellaneous - Harry Boyd R.N. - 03/14/2013 8:44 AM CST Med Management- [facility] Document Contains Addenda Addendum by RIRI TOUSSAINT on 17 March 2013 20:09:40 RISK CONTROL DIRECTOR From: RIRI TOUSSAINT To: Nurse Line; Sent: 03/17/2013 20:09:39 RISK CONTROL DIRECTOR Subject: RE:FW: Med Management- BCP Approved Order:desogestrel-ethinyl estradiol (Desogen 0.15 mg-0.03 mg oral tablet) 1 tab(s) PO Daily Appt needed Qty: 28 tab(s) Refills: 0 Substitutions Allowed Route To [facility] 385 Signed by RIRI TOUSSAINT 03/17/2013 20:09:31 Addendum by LANDY ENGLISH on 14 March 2013 08:53:46 RISK CONTROL DIRECTOR From: LANDY ENGLISH ( Nurse Line) To: RIRI TOUSSAINT; Sent: 03/14/2013 08:53:46 RISK CONTROL DIRECTOR Subject: FW: Med Management- BCP From: HARRY BOYD RN ([facility]) To: Nurse Line; Sent: 03/14/2013 08:44:25 RISK CONTROL DIRECTOR Subject: Med Management- BCP On hold pending signature Order:desogestrel-ethinyl estradiol (Desogen 0.15 mg-0.03 mg oral tablet) 1 tab(s) PO Daily Appt needed Qty: 28 tab(s) Refills: 0 Substitutions Allowed Route To [facility] Caller is: ( ) Patient ( ) Mother ( ) Father ( ) Spouse ( ) Daughter ( ) Son ( X ) Pharmacy ( ) Other: Physician: Patient MRN #: Reason for Call: Message: S. Refill request per pharmacy B. Comp Exam 05/02/12 However had problems with irregular cycles multiple times per EMR documentation No pending appt A. Out of protocol R. Approval requested Advice/Action: Source used: ( ) Verbalizes understanding [...] back cell phone number ( ) Source: [facility] POWERCHART Document Id: [id number] Electronically signed by Nai [facility] Ror Engineer [id number] at 10/08/2016 8:16 PM CDT Telephone Encounter - Ryne Hearn R.N. - 01/27/2013 8:05 AM CDT ok to wait-menstrual problems Document Contains Addenda Addendum by TERRY BRAVO on 29 January 2013 14:37:22 CDT Checked with pharmacy in [place], [place], where pt. had picked up her last rx. Staff stated that yes the different generic brands have the same dosing of hormones. Addendum by TERRY BRAVO on 29 January 2013 13:45:01 CDT Pt informed. Was wondering if a change in the brand of desogen would be a different dose perhaps? Will call [facility] to check. Advosed pt to call back it this occurs next month also. Addendum by TERRY BRAVO on 29 January 2013 11:51:16 CDT LMTCB Addendum by RIRI TOUSSAINT on 29 January 2013 11:18:10 CDT From: RIRI TOUSSAINT To: ALICIA Graham; Sent: 01/29/2013 11:18:10 CDT Subject: RE: ok to wait-menstrual problems She will have some irregularity in menses. She does not need to take the Desogen unless she has recurrent issues. 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 Addendum by TERRY BRAVO on 27 January 2013 11:12:43 CDT From: TERRY BRAVO (ALICIA Toussaint Nurse) To: RIRI TOUSSAINT; Sent: 01/27/2013 11:12:43 CDT Subject: FW: ok to wait-menstrual problems to Riri Bates From: RYNE HEARN To: ALICIA Toussaint Nurse; Sent: 01/27/2013 08:05:50 CDT Subject: ok to wait-menstrual problems Caller is: ) Patient ( ) Mother ( ) Father ( ) Spouse ( ) Daughter ( ) Son ( ) Pharmacy ( ) Other: Physician: Patient MRN #: Reason for Call: Message: S. Menstration problems B. Pt called in September (see phone note 09-11-12) regarding irregular cycles. In August, had menstrual cycle 3 weeks early and had cycle for the full 3 weeks. Now, it happened again and started cycle on 01-20-13 and was not supposed to get in until 02-02-13. No other symptoms. She never did try the other birthcontrol that Riri sent in September because she went back to normal in November and December A. Wondering if she should now start the Desogen that was prescribed in September? R. Advised Riri is out of clinic until Sunday. Pt is ok to wait. Please give her a call back. Advice/Action: Source used: ( ) Verbalizes understanding [...] back cell phone number ( ) Source: [facility] POWERCHART Document Id: [id number] Electronically signed by Conversion, [facility] Ror Engineer [id number] at 10/08/2016 8:16 PM CDT Telephone Encounter - Jimi Acharya, R.N. - 09/11/2012 8:04 AM CDT Menstraul Problem Document Contains Addenda Addendum by TERRY BRAVO on 11 Sep 2012 16:38:21 CDT Pt notified. Would like rx to go to [facility] in [place], instead of [facility]. Will call into for her. Addendum by RIRI TOUSSAINT on 11 Sep 2012 12:10:35 CDT From: RIRI TOUSSAINT To: ALICIA Toussaint Nurse; Sent: 09/11/2012 12:10:35 CDT Subject: RE: Menstraul Problem we would have to trial another pill this is not an unusual issue with BCP use. i will order new pillto try for the next 3 months Addendum by TERRY BRAVO on 11 Sep 2012 08:36:01 CDT From: TERRY BRAVO (ALICIA Toussaint Nurse) To: RIRI TOUSSAINT; Sent: 09/11/2012 08:36:01 CDT Subject: FW: Menstraul Problem To Riri Brito From: JIMI ACHARYA To: ALICIA Toussaint Nurse; Sent: 09/11/2012 08:04:40 CDT Subject: Menstraul Problem Caller is: ( [phone] ) Patient ( ) Mother ( ) Father ( ) Spouse ( ) Daughter ( ) Son ( ) Pharmacy ( ) Other: Physician: Patient MRN #: Reason for Call: Message: S. follow up Menstraul problem B. Called to get information about a irregular period last week. Is away at college right now. [facility] They were not concerned but did a test, which was negative. Did tell her to follow up with Primary Care. Patient started her menstraul cycle 09-01-12and it's just stopping today, slowed down on Sunday morning but Sunday night it picked up again and still is having alittle bleeding today yet. Usually has a flow for 4 day then light spotting for 3 days at the most. A. patient is wanting note to primary to see what she should do? 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 Will be back for a wedding. Is on Trinessa, has been for about 5 years she thinks R. Advice/Action: Source used: ( ) Verbalizes understanding [...] back cell phone number ( ) Source: [facility] [place] Social Document Id: [id number] Electronically signed by Conversion, [facility] Ror Engineer [id number] at 10/08/2016 8:16 PM CDT Telephone Encounter - Ryne Hearn, R.N. - 09/06/2012 12:55 PM CDT menstruation problem From: RYNE HEARN (OW Nurse Line) Sent: 09/06/2012 12:55:22 CDT Subject: menstruation problem Caller is: ( [phone] ) Patient ( Yani ) Mother ( ) Father ( ) Spouse ( ) Daughter ( ) Son ( ) Pharmacy ( ) Other: Physician: Patient MRN #: Reason for Call: Message: S. menstruation question B. She is on control and has been on the same one. Her menstrual cycle is starting early...hasnot missed any pills. 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 Starts bleeding about 2 weeks before she is supposed to start her sugar pills therefore only has 2 weeks menstruation free A. tt ap menstrual problems vaginal bleeding: <21 days menstruation-free interval sd/nd R. Advised she should be seen and she will be seen at the clinic in her college town. Advice/Action: Source used: ( ) Verbalizes understanding [...] back cell phone number ( ) Source: [facility] POWERCHART Document Id: [id number] Electronically signed by [facility], [facility] Ror Engineer [id number] at 10/08/2016 8:16 PM CDT Miscellaneous - Riri Toussaint, SERGE, RSymoneN. - 05/15/2011 5:26 PM CST Results Notification Document Contains Addenda Addendum by TERRY BRAVO on 15 May 2011 18:16:05 RISK CONTROL DIRECTOR Appropriate letter mailed From: RIRI TOUSSAINT To: TERRY BRAVO Sent: 05/15/2011 17:26:31 RISK CONTROL DIRECTOR ! Show up: 05/15/2011 23:26:31 [facility] Subject: Results Notification Actions: Notify patient of results Source: [facility] POWERCHART Document Id: [id number] Electronically signed by Conversion, [facility] Ror Engineer [id number] at 10/08/2016 8:16 PM CDT Miscellaneous - Riri Toussaint, SERGE, RSymoneN. - 05/04/2011 5:12 PM CST Results Notification Document Contains Addenda Addendum by TERRY BRAVO on 04 May 2011 17:51:49 RISK CONTROL DIRECTOR Pt informed. Would like pap results mailed to her address in [place] From: RIRI TOUSSAINT To: TERRY BRAVO Sent: 05/04/2011 17:12:08 RISK CONTROL DIRECTOR ! Show up: 05/04/2011 23:12:08 [facility] Subject: Results Notification Actions: Notify patient of results Source: [facility] POWERCHART Document Id: [id number] Miscellaneous - Riri Toussaint APRN, R.N. - 05/02/2011 10:59 AM CST Ambulatory Patient Summary [facility] [address] [place] [address] Visit Information Name: CLAUDIA MARTEL Current Date: 05/02/2011 10:59:23 Primary Care Provider: JOSE A JORGENSEN MD Your Medications Here is a list of your medications. It is important to take your medications as directed. Use a pillbox or chart to help remind you to take your medications. Please let your doctor or nurse know if you have problems taking your medications. Medication/Strength Dose Route Frequency Indications/Special Instructions/Comments norgestimate-ethinyl estradiol (TriNessa oral tablet) 1 tab(s) Oral once a day Your Allergies & Intolerances Substance Reaction Symptoms Category Comments Zithromax Z-Juan rash Drug Your Problem List Problem Status Onset Comments Neck Sprain Active 10/15/2007 History of Active AT AGE 11 Revision septoplasty Active Oral contraception Active Your Recommendations We want to make sure you get the tests, immunizations, and guidance you need to stay healthy. Here is a customized list of recommendations, based on information we have in your medical record. Your doctor may have additional recommendations for you, based on your personal medical history and risk factors. You can help us by calling us to make an appointment when you are due for your tests. Additional information regarding recommendations: Test/Treatment Last Done Next Due Additional Information Screening Chlamydia every 1 year Females Age 16-24 02/14/2010 02/14/2011 Health Assessment every 1 year 05/02/2011 05/01/2012 Lipid Panel every 5 years Age 20-75 05/02/2011 Checks blood for good (HDL) and bad (LDL) cholesterol. Know your numbers, they are one indicator of your risk for heart attack and stroke. Vaccine: Tetanus every 10 years 10/01/2002 09/28/2012 Immunization to help prevent you from getting the serious disease Tetanus (Lockjaw). Your Upcoming Appointments Date Time Location Reason Provider No Appointments found Your Goals/Additional instructions: Source: [facility] POWERCHART Document Id: [id number] CONTROL DIRECTOR Miscellaneous - Riri Toussaint APRN, R.N. - 05/02/2011 10:59 AM CST Ambulatory Depart Summary [facility] [address] [place] [id number] Visit Information Name: CLAUDIA MARTEL Current Date: 05/02/2011 10:59:22 Physicians Attending Physician: RIRI TOUSSAINT [facility] Primary Care Provider: JOSE A JORGENSEN MD TAHMINAJAVEDGRANT LYNCH has been given the following list [...] tablet) 1 tab(s) Oral once a day Additional Information: Yes - Current list of reconciled medications is provided and explained to the patient and/or family, guardian/caregiver. Source: [facility] POWERCHART Document Id: [id number] CONTROL DIRECTOR Miscellaneous - Conversion, Historical Provider Ser - 05/02/2011 10:41 AM RISK CONTROL DIRECTOR Health Assessment Health Assessment Entered On: 05/02/2011 10:41 RISK CONTROL DIRECTOR Performed On: 05/02/2011 10:41 RISK CONTROL DIRECTOR by TERRY BRAVO Health Assessment Complete Health Assessment Complete or Modified : Annual Health Assessment Annual Health Assessment Completed : Yes TERRY BRAVO - 05/02/2011 10:41 RISK CONTROL DIRECTOR Nutrition Nutrition Risk Factors by History Adult : None Feeding Ability : Complete independence Eating Difficulties : None TERRY BRAVO 05/02/2011 10:41 RISK CONTROL DIRECTOR Functional Living Situation : Home independently Current Daily Living Assistance : None Mobility Assistance Prior to Admission : Independent TERRY BRAVO Hannah 05/02/2011 10:41 RISK CONTROL DIRECTOR Dependent Habits Tobacco Use/Currently Using : No Exposure to Tobacco Smoke : Other: Never Smoking Status : Never smoker TERRY BRAVO Hannah 05/02/2011 10:41 RISK CONTROL DIRECTOR Psychosocial Domestic Abuse Concerns : None SHAWN BRAVOKHUSHBOO Young 05/02/2011 10:41 RISK CONTROL DIRECTOR Advance Directive Advanced Directives : No TERRY BRAVO 05/02/2011 10:41 RISK CONTROL DIRECTOR Educ Needs Learning Style Preference Adult Grid Patient : None Family : SHAWN OatesKHUSHBOO Young 05/02/2011 10:41 RISK CONTROL DIRECTOR [facility] Document Id: [id number] RISK CONTROL DIRECTOR!24 Miscellaneous - Conversion, Historical Provider Ser - 05/02/2011 10:38 AM RISK CONTROL DIRECTOR 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/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/History Entered On: 05/02/2011 10:41 RISK CONTROL DIRECTOR Performed On: 05/02/2011 10:38 RISK CONTROL DIRECTOR by TERRY BRAVO Intake Chief Complaint : Physical LMP Date : 04/27/11 Temperature Oral : 36.6C(Converted to: 97.9DegF) Peripheral Pulse Rate : 68/min Respiratory Rate : 12/min (LOW) Heart Rhythm : Regular Systolic Blood Pressure : 103mmHg Diastolic Blood Pressure : 65mmHg NIBP Mean : 78mmHg BP Location : Right upper extremity Oxygen Therapy : Room air Height : 173cm(Converted to: 5ft 8inch(es), 68.11inch(es)) Actual Weight : 61.1kg(Converted to: 134lb 11oz) Weight Source : Standing scale Dosing Weight Clinic : 61.10kg Clinic BSA : 1.71 Body Mass Index : 20.41kg/m2 SHAWN BRAVOKHUSHBOO Young 05/02/2011 10:38 RISK CONTROL DIRECTOR Subjective Pain Symptoms : No SHAWN BRAVOKHUSHBOO Young 05/02/2011 10:38 RISK CONTROL DIRECTOR Dependent Habits Tobacco Use/Currently Using : No Exposure to Tobacco Smoke : Other: Never Smoking Status : Never smoker TERRY BRAVO - 05/02/2011 10:38 RISK CONTROL DIRECTOR Allergy Allergies (Active) Zithromax Z-Juan Estimated Onset Date: Unspecified ; Reactions: rash ; Created By: JOSE A JORGENSEN MD; Reaction Status: Active ; Category: Drug ; Substance: Zithromax Z-Juan ; Type: Allergy ; Updated By: JOSE A JORGENSEN MD; Reviewed Date: 05/02/2011 10:33 RISK CONTROL DIRECTOR Source: [facility] POWERCHART Document Id: [id number] RISK CONTROL DIRECTOR!25 documented in this encounter Plan of Treatment Not on filedocumented as of this encounter Procedures Procedure Name Priority Date/Time Associated Diagnosis Comme nts PATHOLOGY HEALTHCARE INSURANCE SALES AGENT Routine 05/02/2011 12:00 AM Results for this CYTOLOGY RISK CONTROL DIRECTOR procedure are i n the results section. documented in this encounter Results Pathology HEALTHCARE INSURANCE SALES AGENT Cytology (05/02/2011 12:00 AM RISK CONTROL DIRECTOR) Specimen (Source) Anatomical Location Collection Method / Collectio n Time Received Time / Laterality Volume 05/02/2011 Narrative [facility] - 05/15/2011 4:01 PM RISK CONTROL DIRECTOR [address] [place] [id number] ? Patient: CLAUDIA MARTEL [address] [place], [place] ??[id number] Soc. Sec. #: /Age/Sex: 1990 (Age: 21)F Collected: ? 05/02/2011 Received: ?05/03/2011 Reported: ?05/15/2011 Physician(s): Jian TOUSSAINT NP Copy To: [facility] ??[id number], ??[place] ??[address] CYTOPATHOLOGY HEALTHCARE INSURANCE SALES AGENT REPORT FINAL CYTOLOGIC DIAGNOSIS Pap Smear - ThinPrep: NEGATIVE FOR INTRAEPITHELIAL LESION OR MALIGNANCY REACTIVE/REPARATIVE CHANGES. ENDOCERVICAL CELLS/COMPONENT PRESENT. SATISFACTORY SPECIMEN FOR EVALUATION. ??This specimen required a physician interpretation under CLIA 1987 ?? Electronically Signed Out By celeste/05/15/2011 Jose L HOLT M.D. ADRIANA MATTHEWS([facility]) The Pap test is a screening procedure [...] ThinPrep CLINICAL HISTORY: Date of Last PAP: 02-16-09 [facility] Date of Last Menstrual Period: 04-27-11 Hormonal History: control pills Other Clinical Conditions: HPV TYPING REQUESTED: IF ASCUS Riri Toussaint APRN [facility] PAP COPATH ORDERABLES Performing Organization Address City/State/ZIP Code Phon e Number [facility] documented in this encounter Visit Diagnoses Not on filedocumented in this encounter
--- OUTSIDE RECORDS SUMMARY | 2021-12-14 01:33 | XMS_ITS | Encounter Summary ---
:1990 Author Organization [facility] Address [address] [place] [address] Care Team Providers Name Role Phone Unavailable Primary Care Provider Unavailable Encounter Details Date Type Department Care Team Description 07/30/2003 Hospital Encounter [facility] Provider, In anand Social History Tobacco Use Types Packs/Day [...] week 03/05/2021 How often do you attend latter-day or sabianism services? Never 03/05/2021 Do you belong to any clubs or organizations such as latter-day N o 03/05/2021 groups, unions, fraternal or [...]
--- OUTSIDE RECORDS SUMMARY | 2021-12-14 01:33 | XMS_ITS | Encounter Summary ---
:1990 Author Organization [facility] Address [address] [place] [address] Care Team Providers Name Role Phone Unavailable Primary Care Provider Unavailable Encounter Details Date Type Department Care Team Description 05/11/2004 Hospital Encounter [facility] Henry Brownlee M.D. [address] [place] [address] (Wo rk) Social History Tobacco Use Types [...] How often do you attend cheondoism or temple services? Never 03/05/2021 Do you [...]
--- OUTSIDE RECORDS SUMMARY | 2021-12-14 01:33 | XMS_ITS | Encounter Summary ---
:1990 Author Organization [facility] Address [address] [place] [address] Care Team Providers Name Role Phone Unavailable Primary Care Provider Unavailable Encounter Details Date Type Department Care Team Description 06/30/2004 Hospital Encounter [facility] Provider, [place] anand Social History Tobacco Use Types Packs/Day [...] How often do you attend episcopal or scientologist services? Never 03/05/2021 Do you belong to [...]
--- OUTSIDE RECORDS SUMMARY | 2021-12-14 01:33 | XMS_ITS | Encounter Summary ---
:1990 Author Organization [facility] Address [address] [place] [address] Care Team Providers Name Role Phone Unavailable Primary Care Provider Unavailable Encounter Details Date Type Department Care Team Description 07/27/2004 Hospital Encounter [facility] Fernando Rojo W, P.A. [address] [place] [address] (Wo rk) Social History Tobacco [...] How often do you attend muslim or amish services? Never 03/05/2021 Do you [...]
--- OUTSIDE RECORDS SUMMARY | 2021-12-14 01:33 | XMS_ITS | Encounter Summary ---
:1990 Author Organization [facility] Address [address] [place] [address] Care Team Providers Name Role Phone Unavailable Primary Care Provider Unavailable Encounter Details Date Type Department Care Team Description 05/17/2004 Hospital Encounter [facility] Henry Brownlee M.D. [address] [place] [address] (Wo rk) Social History Tobacco Use [...] How often do you attend orthodoxy or presybeterian services? Never 03/05/2021 Do you [...]
--- OUTSIDE RECORDS SUMMARY | 2021-12-14 01:33 | XMS_ITS | Encounter Summary ---
:1990 Author Organization [facility] Address [address] [place] [address] Care Team Providers Name Role Phone Unavailable Primary Care Provider Unavailable Encounter Details Date Type Department Care Team Description 05/16/2004 Hospital Encounter [facility] Wolfgang Leon M.D. [address] [place] [address] (Wo rk) Social History [...] How often do you attend congregational or lutheran services? Never 03/05/2021 Do you [...]
--- OUTSIDE RECORDS SUMMARY | 2021-12-14 01:33 | XMS_ITS | Encounter Summary ---
:1990 Author Organization [facility] Address [address] [place] [address] Care Team Providers Name Role Phone Unavailable Primary Care Provider Unavailable Encounter Details Date Type Department Care Team Description 02/18/2003 Hospital Encounter [facility] Wolfgang Leon M.D. [address] [place], [place] [address] (Wo rk) Social History [...]
--- OUTSIDE RECORDS SUMMARY | 2021-12-14 01:33 | XMS_ITS | Encounter Summary ---
:1990 Author Organization [facility] Address [address] [place] [address] Care Team Providers Name Role Phone Unavailable Primary Care Provider Unavailable Encounter Details Date Type Department Care Team Description 04/29/2002 Hospital Encounter [facility] URGENTCAR Jr Richardson D.O. [address] [place], [place] [address] (Wo rk) Social History Tobacco Use Types [...] How often do you attend faith or sikhism services? Never 03/05/2021 Do you [...]
--- OUTSIDE RECORDS SUMMARY | 2021-12-14 01:33 | XMS_ITS | Encounter Summary ---
:1990 Author Organization [facility] Address [address] [place] [address] Care Team Providers Name Role Phone Unavailable Primary Care Provider Unavailable Encounter Details Date Type Department Care Team Description 11/29/2001 Hospital Encounter [facility]X [facility] FAMILYPRA Wolfgang Leon M.D. [address] [place] [place] [address] (Wo rk) Social History [...] How often do you attend shinto or scientology services? Never 03/05/2021 Do you [...]
--- OUTSIDE RECORDS SUMMARY | 2021-12-14 01:33 | XMS_ITS | Encounter Summary ---
:1990 Author Organization [facility] Address [address] [place] [address] Care Team Providers Name Role Phone Unavailable Primary Care Provider Unavailable Encounter Details Date Type Department Care Team Description 03/24/2002 Hospital Encounter [facility] URGENTCAR Fernando Rojo W, P.A. [address] [place] [address] (Wo rk) Social History Tobacco [...] How often do you attend gnosticist or evangelical services? Never 03/05/2021 Do you [...]
--- OUTSIDE RECORDS SUMMARY | 2021-12-14 01:33 | XMS_ITS | Encounter Summary ---
:1990 Author Organization [facility] Address [address] [place] [address] Care Team Providers Name Role Phone Unavailable Primary Care Provider Unavailable Encounter Details Date Type Department Care Team Description 05/03/2003 Hospital Encounter [facility]X [facility] URGENTCAR Mark-Pro Ama vieira Social History Tobacco Use Types Packs/Day Years [...] How often do you attend rastafari or religion services? Never 03/05/2021 Do you [...]
--- OUTSIDE RECORDS SUMMARY | 2021-12-14 01:33 | XMS_ITS | Encounter Summary ---
:1990 Author Organization [facility] Address [address] [place] [address] Care Team Providers Name Role Phone Unavailable Primary Care Provider Unavailable Encounter Details Date Type Department Care Team Description 09/28/2004 Hospital Encounter [facility]X [facility] FAMILYPRA Wolfgang Leon M.D. [address] [place] [address] (Wo rk) Social History [...] How often do you attend taoism or latter day services? Never 03/05/2021 Do [...]
--- OUTSIDE RECORDS SUMMARY | 2021-12-14 01:33 | XMS_ITS | Encounter Summary ---
:1990 Author Organization [facility] Address [address] [place] [address] Care Team Providers Name Role Phone Unavailable Primary Care Provider Unavailable Encounter Details Date Type Department Care Team Description 04/12/2004 Hospital Encounter [facility] ENT Henry Brownlee M.D. [address] [place] [phone] (Wo rk) Social History Tobacco Use [...] week 03/05/2021 How often do you attend evangelical or catholic services? Never 03/05/2021 Do you belong to any clubs or organizations such as evangelical N o 03/05/2021 groups, unions, fraternal or [...]
--- OUTSIDE RECORDS SUMMARY | 2021-12-14 01:33 | XMS_ITS | Encounter Summary ---
:1990 Author Organization [facility] Address [address] [place] [address] Care Team Providers Name Role Phone Unavailable Primary Care Provider Unavailable Encounter Details Date Type Department Care Team Description 10/01/2002 Hospital Encounter [facility]X [facility] FAMILYPRA Wolfgang Leon M.D. [address] [place], [place] [address] (Wo rk) Social History [...] How often do you attend taoist or sabianist services? Never 03/05/2021 Do you [...]
--- OUTSIDE RECORDS SUMMARY | 2021-12-14 01:33 | XMS_ITS | Encounter Summary ---
:1990 Author Organization [facility] Address [address] [place] [address] Care Team Providers Name Role Phone Unavailable Primary Care Provider Unavailable Encounter Details Date Type Department Care Team Description 10/20/2004 Hospital Encounter [facility] URGENTCAR Carli Zamora M.D. [address] [place] [address] (Wo rk) Social History Tobacco [...] week 03/05/2021 How often do you attend sikh or gnosticist services? Never 03/05/2021 Do you belong to any clubs or organizations such as sikh N o 03/05/2021 groups, unions, fraternal or [...]
--- OUTSIDE RECORDS SUMMARY | 2021-12-14 01:33 | XMS_ITS | Encounter Summary ---
:1990 Author Organization [facility] Address [address] [place] [address] Care Team Providers Name Role Phone Unavailable Primary Care Provider Unavailable Encounter Details Date Type Department Care Team Description 09/16/2001 Hospital Encounter [facility]X [facility] URGENTCAR Jr Richardson D.O. [address] [place], [place] [address] (Wo rk) Social History [...] How often do you attend sikhism or faith services? Never 03/05/2021 Do you [...]
--- OUTSIDE RECORDS SUMMARY | 2021-12-14 01:33 | XMS_ITS | Encounter Summary ---
:1990 Author Organization [facility] Address [address] [place] [address] Care Team Providers Name Role Phone Unavailable Primary Care Provider Unavailable Encounter Details Date Type Department Care Team Description 07/28/2001 Hospital Encounter [facility]X [facility] URGENTCAR Jr Richardson D.O. [address] [place], [place] [address] (Wo rk) Social History [...] How often do you attend religious or jainism services? Never 03/05/2021 Do you [...]
--- OUTSIDE RECORDS SUMMARY | 2021-12-14 01:33 | XMS_ITS | Encounter Summary ---
:1990 Author Organization [facility] Address [address] [place] [address] Care Team Providers Name Role Phone Unavailable Primary Care Provider Unavailable Encounter Details Date Type Department Care Team Description 06/07/2004 Hospital Encounter [facility] ENT Henry Brownlee M.D. [address] [place] [address] (Wo rk) Social History Tobacco Use [...] week 03/05/2021 How often do you attend sabianist or religion services? Never 03/05/2021 Do you belong to any clubs or organizations such as sabianist N o 03/05/2021 groups, unions, fraternal or [...]
--- OUTSIDE RECORDS SUMMARY | 2021-12-14 01:33 | XMS_ITS | Encounter Summary ---
:1990 Author Organization [facility] Address [address] [place] [address] Care Team Providers Name Role Phone Unavailable Primary Care Provider Unavailable Encounter Details Date Type Department Care Team Description 03/07/2002 Hospital Encounter [facility]X [facility] FAMILYPRA Wolfgang Leon M.D. [address] [place] [address] (Wo rk) Social History [...] week 03/05/2021 How often do you attend yazdanism or orthodox services? Never 03/05/2021 Do you belong to any clubs or organizations such as yazdanism N o 03/05/2021 groups, unions, fraternal or [...]
--- OUTSIDE RECORDS SUMMARY | 2021-12-14 01:33 | XMS_ITS | Encounter Summary ---
:1990 Author Organization [facility] Address [address] [place] [address] Care Team Providers Name Role Phone Unavailable Primary Care Provider Unavailable Encounter Details Date Type Department Care Team Description 08/18/2002 Hospital Encounter [facility]X [facility] FAMILYPRA Wolfgang Leon M.D. [address] [place], [place] [address] (Wo rk) Social History [...] How often do you attend gnosticist or sabianist services? Never 03/05/2021 Do you [...]
--- OUTSIDE RECORDS SUMMARY | 2021-12-14 01:33 | XMS_ITS | Encounter Summary ---
:1990 Author Organization [facility] Address [address] [place] [address] Care Team Providers Name Role Phone Unavailable Primary Care Provider Unavailable Encounter Details Date Type Department Care Team Description 08/25/2004 Hospital Encounter [facility]X [facility] URGENTCAR Fernando Rojo W, P.A. [address] [place] [address] (Wo rk) Social History Tobacco [...] week 03/05/2021 How often do you attend hindu or baptism services? Never 03/05/2021 Do you belong to any clubs or organizations such as hindu N o 03/05/2021 groups, unions, fraternal or [...]
--- OUTSIDE RECORDS SUMMARY | 2021-12-14 01:33 | XMS_ITS | Encounter Summary ---
:1990 Author Organization [facility] Address [address] [place] [address] Care Team Providers Name Role Phone Unavailable Primary Care Provider Unavailable Encounter Details Date Type Department Care Team Description 05/21/2003 Hospital Encounter [facility]X [facility] FAMILYPRA Arun Field M.D. [address] [place] [address] (Wo rk) Social History Tobacco [...] How often do you attend mandaeism or adventism services? Never 03/05/2021 Do you belong to [...]
--- OUTSIDE RECORDS SUMMARY | 2021-12-14 01:33 | XMS_ITS | Encounter Summary ---
:1990 Author Organization [facility] Address [address] [place] [address] Care Team Providers Name Role Phone Unavailable Primary Care Provider Unavailable Encounter Details Date Type Department Care Team Description 03/29/2004 Hospital Encounter [facility]X [facility] MRI Provider, Historic al Social History Tobacco Use Types Packs/Day Years [...] week 03/05/2021 How often do you attend jewish or rastafarian services? Never 03/05/2021 Do you belong to any clubs or organizations such as jewish N o 03/05/2021 groups, unions, fraternal or [...]
--- OUTSIDE RECORDS SUMMARY | 2021-12-14 01:33 | XMS_ITS | Encounter Summary ---
:1990 Author Organization [facility] Address [address] [place] [address] Care Team Providers Name Role Phone Unavailable Primary Care Provider Unavailable Encounter Details Date Type Department Care Team Description 11/05/2003 Hospital Encounter [facility]X [facility] FAMILYPRA Stuart Modi M.D. [address] [place] [address] (Wo rk) Social History Tobacco [...] How often do you attend protestant or shinto services? Never 03/05/2021 Do you [...]
--- OUTSIDE RECORDS SUMMARY | 2021-12-14 01:33 | XMS_ITS | Encounter Summary ---
:1990 Author Organization [facility] Address [address] [place] [address] Care Team Providers Name Role Phone Unavailable Primary Care Provider Unavailable Encounter Details Date Type Department Care Team Description 03/29/2004 Hospital Encounter [facility]X [facility] ENT Henry Brownlee M.D. [address] [place] [address] (Wo rk) Social History Tobacco Use [...] How often do you attend mosque or episcopalian services? Never 03/05/2021 Do you [...]
--- OUTSIDE RECORDS SUMMARY | 2021-12-14 01:33 | XMS_ITS | Encounter Summary ---
:1990 Author Organization [facility] Address [address] [place] [address] Care Team Providers Name Role Phone Unavailable Primary Care Provider Unavailable Encounter Details Date Type Department Care Team Description 02/04/2004 Hospital Encounter HX NO MAPPING Provider, Historical [...] often do you attend jehovah's witness or methodist services? Never 03/05/2021 Do you [...]
--- OUTSIDE RECORDS SUMMARY | 2021-12-14 01:33 | XMS_ITS | Encounter Summary ---
:1990 Author Organization [facility] Address [address] [place] [address] Care Team Providers Name Role Phone Unavailable Primary Care Provider Unavailable Encounter Details Date Type Department Care Team Description 04/27/2004 Hospital Encounter [facility]X [facility] FAMILYPRA Wolfgang Leon M.D. [address] [place] [address] (Wo rk) Social History Tobacco [...] week 03/05/2021 How often do you attend zoroastrianism or jehovah's witness services? Never 03/05/2021 Do you belong to any clubs or organizations such as zoroastrianism N o 03/05/2021 groups, unions, fraternal or [...]
--- OUTSIDE RECORDS SUMMARY | 2021-12-14 01:33 | XMS_ITS | Encounter Summary ---
:1990 Author Organization [facility] Address [address] [place] [address] Care Team Providers Name Role Phone Unavailable Primary Care Provider Unavailable Encounter Details Date Type Department Care Team Description 11/28/2001 Hospital Encounter [facility]X [facility] FAMILYPRA Wolfgang Leon M.D. [address] [place] [place] [address] (Wo rk) Social History [...] How often do you attend judaism or pentecostalism services? Never 03/05/2021 Do you [...]
--- OUTSIDE RECORDS SUMMARY | 2021-12-14 01:34 | XMS_ITS | Encounter Summary ---
:1990 Author Organization [facility] Address [address] [place] [address] Care Team Providers Name Role Phone Unavailable Primary Care Provider Unavailable Encounter Details Date Type Department Care Team Description 03/17/2001 Hospital Encounter [facility]X [facility] OWMatthew Mcdaniel M.D. [address] [place], [place] [address] (Wo rk) Social History Tobacco Use Types [...] often do you attend roman catholic or tenriism services? Never 03/05/2021 Do you [...]
--- OUTSIDE RECORDS SUMMARY | 2021-12-14 01:34 | XMS_ITS | Encounter Summary ---
:1990 Author Organization [facility] Address [address] [place] [address] Care Team Providers Name Role Phone Unavailable Primary Care Provider Unavailable Encounter Details Date Type Department Care Team Description 04/28/2001 Hospital Encounter [facility]X [facility] URGENTCAR Fernando Rojo W, P.A. [address] [place] [address] (Wo rk) Social History Tobacco [...] How often do you attend taoism or anglican services? Never 03/05/2021 Do you [...]
--- OUTSIDE RECORDS SUMMARY | 2021-12-14 01:34 | XMS_ITS | Encounter Summary ---
:1990 Author Organization [facility] Address [address] [place] [address] Care Team Providers Name Role Phone Unavailable Primary Care Provider Unavailable Encounter Details Date Type Department Care Team Description 06/10/2001 Hospital Encounter [facility]X [facility] URGENTCAR Provider, [place] an[place] Social History Tobacco Use Types Packs/Day [...] How often do you attend evangelical or baptist services? Never 03/05/2021 Do you [...]
--- OUTSIDE RECORDS SUMMARY | 2021-12-14 01:34 | XMS_ITS | Encounter Summary ---
:1990 Author Organization [facility] Address [address] [place] [address] Care Team Providers Name Role Phone Unavailable Primary Care Provider Unavailable Encounter Details Date Type Department Care Team Description 06/17/2001 Hospital Encounter [facility]X [facility] FAMILYPRA Emma Orr M.D. Social History Tobacco Use Types Packs/Day [...] How often do you attend jainism or jain services? Never 03/05/2021 Do you [...]
--- OUTSIDE RECORDS SUMMARY | 2021-12-14 01:34 | XMS_ITS | Encounter Summary ---
:1990 Author Organization [facility] Address [address] [place] [address] Care Team Providers Name Role Phone Unavailable Primary Care Provider Unavailable Encounter Details Date Type Department Care Team Description 05/17/2000 Hospital Encounter [facility]X [facility] URGENTCAR Provider, [place] Social History Tobacco Use Types Packs/Day [...] How often do you attend jew or taoist services? Never 03/05/2021 Do you [...]
--- OUTSIDE RECORDS SUMMARY | 2021-12-14 01:34 | XMS_ITS | Encounter Summary ---
:1990 Author Organization [facility] Address [address] [place] [address] Care Team Providers Name Role Phone Unavailable Primary Care Provider Unavailable Encounter Details Date Type Department Care Team Description 06/04/2000 Hospital Encounter [facility]X [facility] FAMILYPRA Wolfgang Leon M.D. [address] [place] [address] (Wo rk) Social History [...] How often do you attend buddhism or denominational services? Never 03/05/2021 Do you [...]
--- OUTSIDE RECORDS SUMMARY | 2021-12-14 01:34 | XMS_ITS | Encounter Summary ---
:1990 Author Organization [facility] Address [address] [place] [address] Care Team Providers Name Role Phone Unavailable Primary Care Provider Unavailable Encounter Details Date Type Department Care Team Description 06/14/2000 Hospital Encounter HX NO MAPPING Provider, Historical [...] How often do you attend sikhism or cheondoism services? Never 03/05/2021 Do you belong to [...]
== END 2021-12-07 09:39 | disposition home or self-care (01) ==
LOC: OB LAC 09:38
PROVIDERS: Visit Provider Advanced Practice Midwife
DX: Z39.1 Encounter for care and examination of lactating mother (principal)
CPT/HCPCS: 99211

== ENCOUNTER 2023-11-28 08:24 | Outpatient (CLI) | payer BC, SELFPAY ==
--- OUTSIDE RECORDS SUMMARY | 2023-11-28 08:26 | XMS_ITS | Referral Summary ---
Author Organization [facility] Address [address] [place] [address] Care Team Providers Care Supervisor Rubber Covering Name Role Phone Domonique Jones APRN, C.N.P., D.N.P. Primary C are Provider Source Comments Patient records contain information from all sites at [facility]. For routine questions regarding patient records, call [phone] during business hours, M-F 8:00 AM - 5:00 PM Central Time. Record requests for emergency care only can be directed to [phone] at any time.[facility] Allergies Active Allergy Reactions Criticality Noted Date Comments Alum-Mag Hydroxide-Simeth Rash 04/20/2016 Aluminum-Magnesium Hydroxide Hives (Reselect Reaction) 05/01/2016 Amoxicillin Rash,GI intolerance 02/22/2017 rash nausea Azithromycin Rash 11/25/2010 Lidocaine Rash,Hives (Reselect Reaction) 04/20/2016 Medications Medication Sig Dispensed Refills Start Date End Date Status [id number] ORAL Take by mouth. A ctive calcium carbonate-vitamin D3 1,250 mg (500 mg calcium)-5 mcg (200 Unit) per tablet Take 1 tablet by mouth daily with breakfast. Active sertraline (ZOLOFT) 25 mg tabletIndications:Anx iety Generalized Disorder Take 1 tablet (25 mg total) by mouth daily for 7 days, THEN 2 tablets (50 mg total) daily. 67 tablet 07/05/2022 Active sertraline (ZOLOFT) 50 mg tabletIndications:Anx iety Generalized Disorder Take 1 tablet (50 mg total) by mouth daily. 90 tablet 1 08/10/2022 Active Active Problems Problem Noted Date Diagnosed Date Depression Major One Episode Moderate 07/05/2022 Assessment & Plan (07/05/2022 8:54 AM ELECTRONIC IMAGER): Patient denies any additional episodes of depression and is currently not depressed at video visit today. 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 Immunizations Name Administration Dates Next Due 4vHPV (discontinued) 11/01/2007,06/17/2007,04/16 DTP 12/19/1994, 0,1989,1989 H1N1 All Forms 03/02/2009 HepA Pediatric/Adolescent 11/01/2007,04/16/2007 HepB Pediatric/Adolescent 10/01/2002,03/07/2002, 11/28/2001 HepB, Unspecified 10/01/2002,03/07/2002,11/29/19 02 Hib (PRP-T) (ACTHIB, HIBERIX) 04/01/1990 Influenza (IM) Preservative Free 05/26/2013,07/07 Influenza, Seasonal, Injectable 04/01/1990,03/08 Influenza, Unspecified 03/24/2015,2009,04/01/1990,1989 MCV4 (Menactra)(Discontinued) 10/19/2006 MCV4, Unspecified 10/19/2006 MMR 11/28/2001,12/24/1990 OPV 12/19/1994, 1,1989,1989 Td Preservative Free (TENIVA C, DECAVAC) 10/01/2002 Tdap 05/26/2013 TyVi (inj) 11/30/2011,08/03/2009 influenza vaccine quad (FLUZONE/FLUARIX) (6 months and older)(PF) 03/21/2021,04/14/2020,01/30/2019,2017,03/30/2015 Social History Tobacco Use Types Packs/Day Years Used Date Smoking Tobacco: Former Cigarettes 0.3 2.1 0 09/05/2007 - 10/19/2009 Smokeless Tobacco: Never Tobacco Cessation:Counseling Given: Not Answered Alcohol Use Standard Drinks/Week Comments No 0 (1 standard drink = 0.6 oz pur e alcohol) Humiliation, Afraid, Rape, and Kick questionnair e Answer Date Recorded Within the last year, have y ou been afraid of your partner or ex-partner? No 07/04/2022 Within the last year, have y ou been humiliated or emotionally abused in other ways by your partner or ex-partner? No Within the last year, have y ou been kicked, hit, slapped, or otherwise physically hurt by your partner or ex-partner? No 07/04/2022 Within the last year, have y ou been raped or forced to have any kind of sexual activity by your partner or ex-partner? No 07/04/2022 Social Connection and Isolation Panel [NHANES] A nswer Date Recorded In a typical week, how many times do you talk on the phone with family, friends, or neighbors? Three times a week 07/04/2022 How often do you get togethe r with friends or relatives? Once a week 07/04/2022 How often do you attend [facility] or latter-day services? Never 07/04/2022 Do you belong to any clubs o r organizations such as cheondoism groups, unions, fraternal or athletic groups, or school groups? No 07/04/2022 How often do you attend meet ings of the clubs or organizations you belong to? Patient declined 07/04/2022 Are you , , di vorced, , never , or living with a partner? 07/04/2022 AUDIT-C Answer Date Recorded Q1: How often do you have a drink containing alc ohol? Never 07/04/2022 Average Number of Drinks Not on file 023 Frequency of Binge Drinking Not on file 06/08 Overall Financial Resource Strain (CARDIA) Answe r Date Recorded How hard is it for you to pa y for the very basics like food, housing, medical care, and heating? Not very hard 07/04/2022 PHQ-2 Answer Date Recorded PHQ-2 Score 1 07/05/2022 [facility] - Occupational Stress Questionnaire Answer Date Recorded Do you feel stress - tense, restless, nervous, or anxious, or unable to sleep at night because your mind is troubled all the time - these days? Rather much 07/04/2022 Exercise Vital Sign Answer Date Recorde d On average, how many days pe r week do you engage in moderate to strenuous exercise (like a brisk walk)? 5 days 07/04/2022 On average, how many minutes do you engage in exercise at this level? 20 min 07/04/2022 Hunger Vital Sign Answer Date Recorded Within the past 12 months, y ou worried that your food would run out before you got the money to buy more. Never true 07/04/19 23 Within the past 12 months, t he food you bought just didn't last and you didn't have money to get more. Never true 07/04/2022 PRAPARE - Transportation Answer Date Re corded In the past 12 months, has l ack of transportation kept you from medical appointments or from getting medications? No 06/08 In the past 12 months, has l ack of transportation kept you from meetings, work, or from getting things needed for daily living? No 07/04/2022 Housing Stability Vital Sign Answer Baltazar e Recorded In the last 12 months, was t here a time when you were not able to pay the mortgage or rent on time? No 07/04/2022 In the last 12 months, how many places have you lived? 1 07/04/2022 In the last 12 months, was t here a time when you did not have a steady place to sleep or slept in a [place] [facility] (including now)? No 07/04/2022 Depression Answer Date Recor ded PHQ-9 Total Score (max 27) 4 07/05 Nutrition Answer Date Recorded Nutrition: EVOO Fat Source No 07/04 On average, how many serving s of fruits and vegetables do you eat per day (serving size is equal to 1 cup or approximately the size of a tennis ball)? 2-3 07/04/2022 Dental Answer Date Recorded Dental: Regular Dentist Yes 05/16/19 Employment Answer Date Recorded Employment status Employed and actively working without restrictions 07/04/2022 Education Answer Date Recorded What is the highest level of school you have completed or the highest degree you have received? Master's degree (e.g., MA, MS, Rani, MEd, SWING RIDE OPERATOR, MARLEN) 01/30/2019 Sex and Gender Information Value Date Recorded Sex Assigned at Female 01/16/2018 3:45 PM CDT Gender Identity Female 01/16/2018 3:45 PM CDT Sexual Orientation Straight 01/16/2018 3: 45 PM CDT Last Filed Vital Signs Vital Sign Reading Time Taken Comments Blood Pressure 116/71 06/09/2021 2:25 PM ELECTRONIC IMAGER Pulse 63 06/09/2021 2:25 PM ELECTRONIC IMAGER Temperature 36.3 ??C (97.3 ??F) 06/09/2021 2:25 PM CS T Respiratory Rate 20 06/09/2021 2:25 PM ELECTRONIC IMAGER Oxygen Saturation 99% 06/09/2021 2:25 PM ELECTRONIC IMAGER Inhaled Oxygen Concentration - - Weight 59.2 kg (130 lb 8.2 oz) 03/21/2021 4:15 P M ELECTRONIC IMAGER Height 175 cm (5' 8.9) 01/30/2019 3:54 PM CDT Body Mass Index 19.33 01/30/2019 3:54 PM CDT Plan of Treatment Not on file Procedures Procedure Name Priority Date/Time Associated Diagnosis Comments HIV-1/-2 AG AND AB SCRN, PLASMA Routine 03/25/2021 3:58 PM ELECTRONIC IMAGER Encounter For Supervision Of Normal First Unspecified Trimester THINPREP W/HPV CO-TEST SCREEN Routine 01/30/2019 5:18 PM CDT Pap Smear Examination HCV AB SCRN W/REFLEX TO HCV PCR, S STAT 08/06/2017 4:33 PM CDT Bite Human Hand Open Initial Right from Last 3 Months or Most Recently Relevant to Health Maintenance Results * HIV-1/-2 Ag and Ab Scrn, Plasma (03/25/2021 3:58 PM ELECTRONIC IMAGER) HIV Ag/Ab Scrn, P Negative Negative 03/28/2021 2:53 PM ELECTRONIC IMAGER [facility] Comment: Negative result does not rule out HIV infection. If exposure to HIV infection occurred <14 days ago, contact the laboratory to request addition of HIV-1 RNA detection / quantification test. HIV-1 p24 Ag Scrn, P Negative Negative 03/28/2021 2:53 PM ELECTRONIC IMAGER [facility] Comment: Negative result does not rule out HIV infection. If exposure to HIV infection occurred <14 days ago, contact the laboratory to request addition of HIV-1 RNA detection / quantification test. HIV-1 Ab Scrn, P Negative Negative 03/28/2021 2:53 PM ELECTRONIC IMAGER [facility] Comment: Negative result does not rule out HIV infection. If exposure to HIV infection occurred <14 days ago, contact the laboratory to request addition of HIV-1 RNA detection / quantification test. HIV-2 Ab Scrn, P Negative Negative 03/28/2021 2:53 PM ELECTRONIC IMAGER [facility] Comment: Negative result does not rule out HIV infection. If exposure to HIV infection occurred <14 days ago, contact the laboratory to request addition of HIV-1 RNA detection / quantification test. Blood (Blood, Venous) 03/25/2021 3:58 PM ELECTRONIC IMAGER 03/26/2021 3:22 PM ELECTRONIC IMAGER Juan Donnelly M.D. LAB MICROBIOLOGY - BLOOD ORDERABLES [facility] [address] [place] [id number], [facility] in [address] [address] * ThinPrep w/HPV Co-Test Screen (01/30/2019 5:18 PM CDT) 02/03/2019 8:15 AM CDT Report electronically signed by CASSIE Rodas(ASCP) I verify that I have examined all relevant slides/materials for the specimen(s) and rendered or confirmed the diagnosis. 02/03/2019 8:15 AM CDT Gross Description Received specimen in a ThinPrep vial. 02/03/2019 8:15 AM CDT Pap Test Source Cervical/Endocervi lazaro 02/03/2019 8:15 AM CDT Clinical History NONE 02/04/20 19 8:15 AM CDT Menstrual Status(LMP, PM, ) Amenorrhea 02/03/2019 8:15 AM CDT Hormone Therapy/Contracep tives None/Not known 02/03/2019 8:15 AM CDT Interpretation Cervical/Endocervi lazaro ??(ThinPrep): Satisfactory for Evaluation Negative for Intraepithelial Lesion or Malignancy High Risk HPV: ??Negative Negative for High Risk HPV by nucleic acid amplification. The following High Risk HPV types were not detected: 16, 18, 31, 33, 35, 39, 45, 51, 52, 56, 58, 59, 66, and 68. 02/03/2019 8:15 AM CDT Varies (Cervix/Endocerv ix) 01/30/2019 5:18 PM CDT 01/31/2019 7:04 AM CDT Domonique Jones APRN, C.N.P., D.N.PSymone [place] Rosangela PAP PATHDX ORDERABLES [facility] [address] * HCV AB Scrn w/Reflex to HCV PCR, S (08/06/2017 4:33 PM CDT) HCV Ab Screen, S Negative Negative 08/07/2017 8:38 AM CDT [facility] Comment:Rquams-hc-vzeezk rat io is <1.00. Blood (Blood, Venous) 08/06/2017 4:33 PM CDT 08/07/2017 6:30 AM CDT Hal Joseph M.D. LAB MICROBIOLOGY - BLOOD ORDERABLES [facility] [address] [place] [address] from Last 3 Months or Most Recently Relevant to Health Maintenance Care Teams Supervisor Rubber Covering Relationship Specialty Start Date End Date Domonique Jones APRN, C.N.P., D.N.P. [address] [place] [address] PCP - General 10/19/16
--- OUTSIDE RECORDS SUMMARY | 2023-11-28 08:26 | XMS_ITS | Clinical Summary ---
Author Organization [facility] Address [place], [place] [address] Care Team Providers Care Kindergarten Teacher Assistant Name Role Phone Domonique Jones NP Primary Care Provider Allergies Active Allergy Reactions Criticality Noted Date Comments Alum-Mag Hydroxide-Simeth Rash 04/20/2016 Amoxicillin GI Upset,Rash 02/22/2017 rash nausea Azithromycin Rash 05/01/2016 Lidocaine Hives 05/01/2016 Aluminum-Magnesium Hydroxide Hives 016 Medications Medication Sig Dispensed Refills Start Date End Date Status acetaminophen (TYLENOL EXTRA STRGTH) 500 mg tablet Take 500 mg by mouth every 6 hours if needed. Max acetaminophen dose: 4000mg in 24 hrs. Active lidlumxa50/iron palak/folic/dha ( DHA+COMPLETE ORAL) Take by mouth. Active calcium carbonate (TUMS) 200 mg calcium (500 mg) chewable tablet Chew 1 Tablet by mouth 4 times daily if needed. Active milk of magnesia concentrate (MOM) 2,400 mg/10 mL concentrate Take 10 mL by mouth once daily if needed. Active sertraline (ZOLOFT) 50 mg tablet Take 50 mg by mouth every morning. 05/17/2020 Active Social History Tobacco Use Types Packs/Day Years Used Date Smoking Tobacco: Former Smokeless Tobacco: Never Comments:smoked for 1 year Alcohol Use Standard Drinks/Week Comments Never 0 (1 standard drink = 0.6 oz pur e alcohol) Sex and Gender Information Value Date Recorded Sex Assigned at Not on file Gender Identity Not on file Sexual Orientation Not on file Obstetrics History Para Term AB IAB SAB Ectopic Multiple Livin g Live Births 1 Date Outcome GA Total Labor Labor/2nd/3rd Weight Sex Type Anes PTL Kaitlin A1 A5 Name Clin Last Filed Vital Signs Vital Sign Reading Time Taken Comments Blood Pressure 112/52 10/01/2018 3:57 PM CDT Pulse 62 10/01/2018 3:57 PM CDT Temperature 36.9 ??C (98.5 ??F) 10/01/2018 2:31 PM CD T Respiratory Rate 20 10/01/2018 3:57 PM CDT Oxygen Saturation 98% 10/01/2018 3:57 PM CDT Inhaled Oxygen Concentration - - Weight 57.1 kg (125 lb 14.1 oz) 11/11/2020 7:30 AM CDT Height 176 cm (5' 9.29) 11/11/2020 7:30 AM CDT Body Mass Index 18.43 11/11/2020 7:30 AM CDT Plan of Treatment Not on file Care Teams Kindergarten Teacher Assistant Relationship Specialty Start Date End Date Domonique Jones NP [address] [place] [phone] PCP - General Nurse Practitioner - Family 10/01/18
--- OUTSIDE RECORDS SUMMARY | 2023-11-28 08:26 | XMS_ITS ---
Author Organization [facility] Address [address] [place] [address] Care Team Providers Care Electromechanical Assembler Name Role Phone Unavailable Unavailable Unavailable Surgery Details Not on file Complications Check Surgery Details section. Procedure Estimated Blood Loss Check Surgery Details section. Procedure Findings Check Surgery Details section. Procedure Specimens Taken Check Surgery Details section.
--- OUTSIDE RECORDS SUMMARY | 2023-11-28 08:26 | XMS_ITS | Clinical Summary ---
Author Organization [facility] Address [address] [place] [address] Care Team Providers Care Office Agent Name Role Phone Domonique Jones APRN, C.N.P., D.N.P. Primary C are Provider Source Comments Patient records contain information from all sites at [facility]. For routine questions regarding patient records, call [phone] during business hours, M-F 8:00 AM - 5:00 PM Central Time. Record requests for emergency care only can be directed to [phone] at any time.[facility] Allergies Active Allergy Reactions Criticality Noted Date Comments Alum-Mag Hydroxide-Simeth Rash 04/20/2016 Aluminum-Magnesium Hydroxide Hives (Reselect Reaction) 05/01/2016 Amoxicillin Rash,GI intolerance 02/22/2017 rash nausea Azithromycin Rash 11/25/2010 Lidocaine Rash,Hives (Reselect Reaction) 04/20/2016 Medications Medication Sig Dispensed Refills Start Date End Date Status [id number] ORAL Take by mouth. A ctive calcium [...] 07/05/2022 Assessment & Plan (07/05/2022 8:54 AM PR MANAGER): Patient denies any additional episodes of depression [...] quad (FLUZONE/FLUARIX) (6 months and older)(PF) 03/21/2021,04/14/2020,01/30/2019,2017,03/30/2015 Family History Medical History Relation Name Comments [...] week 07/04/2022 How often do you attend chur or pentecostalism services? Never 07/04/2022 Do you belong to any clubs o r organizations such as sikh groups, unions, fraternal or athletic groups, or [...] Answer Date Recorded PHQ-2 Score 1 07/05/2022 [facility] - Occupational Stress [...] or slept in a intermediate (including now)? No 07/04/2022 Depression Answer Date [...] Master's degree (e.g., MA, MS, Rani, MEd, BUILDING CONSTRUCTION FOREMAN, MARLEN) 01/30/2019 Sex and Gender Information Value Date Recorded Sex Assigned at Female 01/16/2018 3:45 PM CDT Gender Identity Female 01/16/2018 3:45 PM CDT Sexual Orientation Straight 01/16/2018 3: 45 PM CDT Last Filed Vital Signs Vital Sign Reading Time Taken Comments Blood Pressure 116/71 06/09/2021 2:25 PM PR MANAGER Pulse 63 06/09/2021 2:25 PM PR MANAGER Temperature 36.3 ??C (97.3 ??F) 06/09/2021 2:25 PM CS T Respiratory Rate 20 06/09/2021 2:25 PM PR MANAGER Oxygen Saturation 99% 06/09/2021 2:25 PM PR MANAGER Inhaled Oxygen Concentration - - Weight 59.2 kg (130 lb 8.2 oz) 03/21/2021 4:15 P M PR MANAGER Height 175 cm (5' 8.9) 01/30/2019 3:54 PM CDT Body Mass Index 19.33 01/30/2019 3:54 PM CDT Plan of Treatment Health Maintenance Due Date Last Done Comments Depression Monitoring (PHQ-9) 11/04/2022 07/05/2022 COVID-19 Vaccine ( season) 2023 Influenza Vaccine (#1) 2024 1, 04/14/2020, 01/30/2019, Additional history exists Cervical Cancer Screening 04/19/20242020, 01/30/2019, 01/30/2019, Additional history exists DTaP,Tdap,and Td Vaccines (7 - Td or Tdap) 08/23/2031 08/22/2021, 05/26/2013, 10/01/2002, Additional history exists Hepatitis B Vaccines Completed 10/01/2002, 10/01/2002, 03/07/2002, Additional history exists HPV Vaccines Completed 11/01/2007, 06/07, 04/16/2007 Hepatitis C Screening Completed 08/06/2017 HIV Screening Completed 03/25/2021, 01/06, 08/06/2017, Additional history exists Pneumococcal vaccine (0-64 years) Aged Out No longer eligible based on patient's age to complete this topic Procedures Procedure Name Priority Date/Time Associated Diagnosis Comments HIV-1/-2 AG AND AB SCRN, PLASMA Routine 03/25/2021 3:58 PM PR MANAGER Encounter For Supervision Of Normal First Unspecified Trimester THINPREP W/HPV CO-TEST SCREEN Routine 01/30/2019 5:18 PM CDT Pap Smear Examination HCV AB SCRN W/REFLEX TO HCV PCR, S STAT 08/06/2017 4:33 PM CDT Bite Human Hand Open Initial Right from Last 3 Months or Most Recently Relevant to Health Maintenance Results * HIV-1/-2 Ag and Ab Scrn, Plasma (03/25/2021 3:58 PM PR MANAGER) HIV Ag/Ab Scrn, P Negative Negative 03/28/2021 2:53 PM PR MANAGER [facility] Comment: Negative result does not rule out HIV infection. If exposure to HIV infection occurred <14 days ago, contact the laboratory to request addition of HIV-1 RNA detection / quantification test. HIV-1 p24 Ag Scrn, P Negative Negative 03/28/2021 2:53 PM PR MANAGER [facility] Comment: Negative result does not rule out HIV infection. If exposure to HIV infection occurred <14 days ago, contact the laboratory to request addition of HIV-1 RNA detection / quantification test. HIV-1 Ab Scrn, P Negative Negative 03/28/2021 2:53 PM PR MANAGER [facility] Comment: Negative result does not rule out HIV infection. If exposure to HIV infection occurred <14 days ago, contact the laboratory to request addition of HIV-1 RNA detection / quantification test. HIV-2 Ab Scrn, P Negative Negative 03/28/2021 2:53 PM PR MANAGER [facility] Comment: Negative result does not rule out HIV infection. If exposure to HIV infection occurred <14 days ago, contact the laboratory to request addition of HIV-1 RNA detection / quantification test. Blood (Blood, Venous) 03/25/2021 3:58 PM PR MANAGER 03/26/2021 3:22 PM PR MANAGER Juan Donnelly M.D. LAB MICROBIOLOGY - BLOOD ORDERABLES [facility] [address] [place] [id number], [facility] [place] [address] * ThinPrep w/HPV Co-Test Screen (01/30/2019 5:18 [...] 8:15 AM CDT Clinical History NONE 02/04/20 8:15 AM CDT Menstrual Status(LMP, PM, ) [...] 01/31/2019 7:04 AM CDT Domonique Jones APRN, C.N.PSymone, Jian.NSymonePSymone ZHOU PAP PATHDX ORDERABLES [facility] [address] [place] [address], [facility] * HCV AB Scrn w/Reflex to HCV PCR, S (08/06/2017 4:33 PM CDT) HCV Ab Screen, S Negative Negative 08/07/2017 8:38 AM CDT [facility] Comment:Frulho-qa-rjxgwp rat io is <1.00. Blood (Blood, Venous) 08/06/2017 4:33 PM CDT 08/07/2017 6:30 AM CDT Hal oJseph M.D. LAB MICROBIOLOGY - BLOOD ORDERABLES [facility] [address] [place] [address] from Last 3 Months or Most Recently Relevant to Health Maintenance Care Teams Office Agent Relationship Specialty Start Date End Date Domonique Jones APRN, C.N.P., D.N.P. [address] [place] [address] PCP - General 10/19/16
--- NOTE | 2023-11-28 08:45 | CRLHL7_ITS ---
For Patients: As a result of the Cures Act, medical imaging exams and procedure reports are released immediately into your electronic medical record. You may view this report before your referring provider. If you have questions, please contact your health care provider. DIGITAL DIAGNOSTIC LEFT MAMMOGRAM USING TOMOSYNTHESIS AND COMPUTER-AIDED DETECTION LEFT BREAST ULTRASOUND CLINICAL HISTORY: LEFT breast lump. COMPARISON: None. TECHNIQUE: Digital LEFT mammogram in two projections with computer-aided detection. Tomosynthesis was used in this interpretation. Real-time ultrasound imaging of LEFT breast with imaging documentation. BREAST COMPOSITION: The breasts are extremely dense, which lowers the sensitivity of mammography. FINDINGS: 3D CC/MLO LEFT breast mammogram images submitted. No suspicious mass or architectural distortion. No suspicious calcifications or adenopathy. Targeted LEFT breast ultrasound performed at 3 o`clock 2 cm from the nipple corresponding to the area of concern. Normal fibroglandular tissue is present. No fluid collection or mass. IMPRESSION: No suspicious findings. No evidence of malignancy. RECOMMENDATIONS: Age-appropriate screening mammography. Results and recommendations discussed with the patient. BI-RADS Category 2: Benign A lay language report of this examination will be provided to the patient. Dictated by Rodney Fuller MD @ 11/28/2023 9:21:43 AM jj/Dictated by: Rodney Fuller MD @ 11/28/2023 9:21:00 AM (Electronically Signed)
--- NOTE | 2023-11-28 09:15 | CRLHL7_ITS ---
For Patients: As a result of the Cures Act, medical imaging exams and procedure reports are released immediately into your electronic medical record. You may view this report before your referring provider. If you have questions, please contact your health care provider. PLEASE SEE DIGITAL DIAGNOSTIC LEFT MAMMOGRAM PERFORMED SAME DAY CRL:jing ch/Dictated by: Rodney Fuller MD @ 11/28/2023 9:21:00 AM (Electronically Signed)
== END 2023-11-28 08:25 | disposition home or self-care (01) ==
LOC: MAMMO 08:24
PROVIDERS: Visit Provider Physician Assistant
DX: N63.20 Unspecified lump in the left breast, unspecified quadrant (principal); N64.4 Mastodynia
CPT/HCPCS: 76642; 77065; G0279

== ENCOUNTER 2024-06-20 12:00 | Outpatient (CLI) | payer BC, SELFPAY ==
--- NOTE | 2024-06-20 12:15 | CRLHL7_ITS ---
For Patients: As a result of the Century Cures Act, medical imaging exams and procedure reports are released immediately into your electronic medical record. You may view this report before your referring provider. If you have questions, please contact your health care provider. INDICATION: First trimester dating and viability. TECHNIQUE: Ultrasound OB pelvis transabdominal and transvaginal. Real-time juarez-scale imaging of the pelvis was performed. COMPARISON: None. FINDINGS: Intrauterine gestation: Single. heart activity (bpm): Regular, 173. Miranda-rump length: 2.5 cm. Estimated ultrasound age: 9 weeks 2 day. MICHELLE by ultrasound: 01/21/2025. Yolk sac: Normal. Perigestational hemorrhage: None. Ovaries and adnexa: Unremarkable. Corpus luteal cyst is identified on the left side. Suspicious pelvic fluid collections: None. IMPRESSION: Single viable intrauterine with estimated gestational age of 9 weeks 2 days and MICHELLE of 01/21/2025. Dictated by Emani Barkley MD @ 06/23/2024 7:34:25 AM (Electronically Signed)
== END 2024-06-20 12:01 | disposition home or self-care (01) ==
LOC: US 12:01
PROVIDERS: Visit Provider Advanced Practice Midwife
DX: Z34.91 Encounter for supervision of normal pregnancy, unspecified, first trimester (principal); Z3A.09 9 weeks gestation of pregnancy
CPT/HCPCS: 76801; 83021; 86592; 86703; 86704; 86706; 86762; 86787; 86803; 86850; 86900; 86901; 87086; 87340

== ENCOUNTER 2024-08-20 12:42 | Emergency (ER) | payer BC, SELFPAY ==
--- OUTSIDE RECORDS SUMMARY | 2024-08-20 12:44 | XMS_ITS | Clinical Summary ---
Author Organization [facility] Address [address] [place] [id number] Care Team Providers Care Latin Dancer Name Role Phone Domonique Jones NP Primary Care Provider Allergies Active Allergy Reactions Criticality Noted Date Comments Alum-Mag Hydroxide-Simeth Rash 04/20/2016 Amoxicillin GI Upset,Rash 02/22/2017 rash nausea Azithromycin Rash 05/01/2016 Lidocaine Hives 05/01/2016 Aluminum-Magnesium Hydroxide Hives 016 Medications acetaminophen (TYLENOL EXTRA STRGTH) 500 mg tablet Take 500 mg by mouth every 6 hours if needed. Max acetaminophen dose: 4000mg in 24 hrs. Active pojhkejk38/iron palak/folic/dha ( DHA+COMPLETE ORAL) Take by mouth. Active calcium carbonate (TUMS) 200 mg calcium (500 mg) chewable tablet Chew 1 Tablet by mouth 4 times daily if needed. Active milk of magnesia concentrate (MOM) 2,400 mg/10 mL concentrate Take 10 mL by mouth once daily if needed. Active sertraline (ZOLOFT) 50 mg tablet Take 50 mg by mouth every morning. 1 Active Social History Tobacco Use Types Packs/Day Years Used Date Smoking Tobacco: Former Smokeless Tobacco: Never Comments:smoked for 1 year Alcohol Use Standard Drinks/Week Comments Never 0 (1 standard drink = 0.6 oz pur e alcohol) Comments No Sex and Gender Information Value Date Recorded Sex Assigned at Not on file Legal Sex Female 6:59 AM DIRECTOR [place] Gender Identity Not on file Sexual Orientation [...] 61 10/01/2018 3:57 PM CDT Temperature 36.9 C (98.5 F) 10/01/2018 2:31 PM CDT Respiratory Rate 20 10/01/2018 3:57 PM CDT Oxygen Saturation 98% 10/01/2018 3:57 PM CDT Inhaled Oxygen Concentration - - Weight 57.1 kg (125 lb 14.1 oz) 11/11/2020 7:30 AM CDT Height 176 cm (5' 9.29) 11/11/2020 7:30 AM CDT Body Mass Index 18.43 11/11/2020 7:30 AM CDT Plan of Treatment Not on file Insurance [id number] [place] [id number] [facility] Care Teams Latin Dancer Relationship Specialty Start Date End Date Domonique Jones NP [address] [place] [id number] PCP - General Nurse Practitioner - Family 10/01/18
[2024-08-20 12:50] VITALS: BP 103/59; PULSE 68; RESP 18; TEMP 37.1; O2SAT 99; BMI 20.5
--- NOTE | 2024-08-20 13:07 | ED_ITS ---
HPI - General Time Seen by Provider: 13:07 Date Seen: 08/20/24 Chief complaint: OB/Uterine Contractions Stated complaint: 18 weeks - having contractions Time Seen by Provider: 08/20/24 12:44 Source: patient, RN notes reviewed and old records reviewed Mode of arrival: ambulatory Limitations: no limitations History of Present Illness HPI Narrative: This 34yo female is coming in with concern of non-painful contractions at about 18weeks . She talked to triage today and they advised her to come to the ED as she is under 20 weeks. She has noted no abdominal pain, no quickening yet, no fevers or chills, no vaginal discharge or odor, no urinary symptoms. She notes that this tightening sensation was happening as frequently as every 5 minutes on Sunday night (was the worst), was still feeling frequent tightening Sunday, this is not happening as much today. She has had one other term but notes that she had uterine tightening/Adriel Hines frequently starting about 25 weeks; she did not deliver until 41 07/11. These tightening episodes do not change her breathing pattern at all. Related Data Home Medications ?Medication ?Instructions ?Recorded ?Confirmed vit,calcium no.40-iron tab PO 07/15/24 08/08/24 fum 27 mg iron-folate no.1 1 mg tablet (PNV-Select) [id number] fum 28 mg cap PO 07/15/24 08/08/24 iron-folic acid 1 mg-omg3 200 mg capsule (WesNate DHA) Allergies Allergy/AdvReac Type Severity Reaction Status Date / Time lidocaine Allergy Severe Hives Verified 08/20/24 12:50 amoxicillin Allergy Mild Rash Verified 08/20/24 12:50 azithromycin Allergy Mild Rash Verified 08/20/24 12:50 salmon oil Allergy Unknown Verified 08/20/24 12:50 adhesive AdvReac Intermediate itchy and Verified 08/20/24 12:50 red Review of Systems 2 Status of ROS: Reports: 6 or more systems reviewed and unremarkable except as noted in History and below [facility] Medical History anxiety ?O99.345 - Other mental disorders complicating the puer[place]ium (ICD-10) ?F41.8 - Other specified anxiety disorders (ICD-10) Post term , 41 weeks ?O48.0 - Post-term (ICD-10) ?Z3A.41 - 41 weeks gestation of (ICD-10) Elective induction of labor planned ?Z34.90 - Encounter for supervision of normal , unspecified, unspecified trimester (ICD-10) Surgical History S/P PDA repair ?Z87.74 - Personal history of (corrected) congenital malformations of heart and circulatory system (ICD-10) S/P primary low transverse ?Z98.891 - History of uterine scar from previous surgery (ICD-10) Social History Narrative: Education: Masters 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 ? Partner: Jorje? work?commercial ne Lives with: Jon Recinos age 2.5years? ? Pets: dog? ? Abuse: Denies past ? Unable to assess current, partner present? ? Special Diet: Denies? ? Ok with a blood transfusion: yes? ? Culture or taoist beliefs: denies? What is your current living situation?: I presently have a place to live Problems where you live: no known problems In the past 12 months, utilities in danger of being shut off: no In past 12 months, lack of transportation kept you from medical appts, meetings, work, or getting things needed for daily living: no In the past 12 mos, have been you worried that your food would run out before you had money to buy more?: never true In the past 12 mos, the food you bought just didn't last and you didn't have money to buy more?: never true Smoking Status: Former smoker Do you use any of these nicotine containing products: None Second hand tobacco smoke exposure: No How often do you have a drink containing alcohol: never How often do you have six or more drinks on one occasion: Never AUDIT-C Alcohol total score: 0 Non-prescribed substance use: denies use How often does anyone, including family, friends and others, physically hurt you : never How often does anyone, including family, friends and others, insult or talk down to you: never How often does anyone, including family, friends and others, threaten you with harm: never How often does anyone, including family, friends and others, scream or curse at you: never service: No Exam Const: Vital Signs, click to edit/add: Vital Signs - 24 hr 08/20/24 12:50 08/20/24 14:50 Temperature 98.7 F Pulse Rate [Pulse Oximeter] 68 68 Respiratory Rate 18 16 Blood Pressure [Le ft Upper Arm] 103/59 L 112/72 Pulse Oximetry 99 99 Oxygen Delivery Me thod Room Air Room Air This 34-year-old female is alert, interactive, no apparent distress come ambulatory into the ED of her own accord. Sclerae are clear, symmetrical facial function, speaking in complete sentences, speech is normal. Lungs are clear, good air entry, wheezing or crackles or tachypnea. CV regular rate and rhythm, no murmur. Abdomen is gravid, her abdomen is soft, feel no uterine tightening, no tenderness of the uterus. Her abdomen is nontender. Documenting provider has reviewed patient's vital signs: yes Course Course ED Course: Reviewed with patient that I would like a urinalysis. We will check limited obstetrical ultrasound and look for cervical length. Reevaluation(s) Time of Reevaluation #1: 14:34 Reevaluation #1: Have reviewed with patient that the report from the agency sales director is baby's heart tones were 157. Cervical length transvaginally was 4 cm. I have spoken with OB. Plan is to discharge her to home. She does have a follow-up scheduled next week on Sunday already. She should keep that, contact them via triage if there are further concerns. I will certainly let her know if there is any concerning over read by the radiologist. The agency sales director is the report were going by at this time. Consultations Consultation #1: Have spoken with Dr. Peterson on-call OB. We reviewed the patient's case, reviewed that cervical length was 4cm on vaginal probe. Patient can be discharged to follow up with them. FHT was 157. Time: 14:22 Vital Signs Vital signs: Initial Vital Signs Temperature 98.7 F 08/20/24 12:50 Temperature Source Temporal Artery Scan 08/20/24 12:50 Pulse Rate 68 08/20/24 12:50 Pulse Rhythm Regular 08/20/24 12:50 Respiratory Rate 18 08/20/24 12:50 Blood Pressure 103/59 L 08/20/24 12:50 Blood Pressure Mean 73 08/20/24 12:50 Blood Pressure Position Sitting 08/20/24 12:50 Pulse Oximetry 99 08/20/24 12:50 Oxygen Delivery Method Room Air 08/20/24 12:50 Vital Signs Temperature 98.7 F 08/20/24 12:50 Pulse Rate 68 08/20/24 12:50 Respiratory Rate 18 08/20/24 12:50 Blood Pressure 103/59 L 08/20/24 12:50 Pulse Oximetry 99 08/20/24 12:50 Oxygen Delivery Method Room Air 08/20/24 12:50 Temperature 98.7 F 08/20/24 12:50 Pulse Rate 68 08/20/24 14:50 Respiratory Rate 16 08/20/24 14:50 Blood Pressure 112/72 08/20/24 14:50 Pulse Oximetry 99 08/20/24 14:50 Oxygen Delivery Method Room Air 08/20/24 14:50 MDM - OB/Uterine Contractions Lab Data Attestation: I reviewed the patient's lab results. Labs: Lab Results 08/20/24 Range/Units 13:20 Urine Color Yellow (Yellow) Urine Appearance Clear (Clear) Urine pH 6.5 (5.0-8.5) Ur Specific [place] <= 1.005 (1.000-1.030) Urine Protein Negative (Negative) Urine Glucose (UA) Negative (Negative) Urine Ketones Negative (Negative) Urine Blood Negative (Negative) Urine Nitrite Negative (Negative) Urine Bilirubin Negative (Negative) Urine Urobilinogen 0.2 (0.2-1.0) Ur Leukocyte Esterase Negative (Negative) Imaging Data US OB limited: Attestation: I have reviewed the pertinent imaging results. Radiologist's impression: Patient: ABIGAIL SMALLS Facility:?[facility] Patient ID:?[id number] Site Patient ID:?[id number]. Site :?[id number] Study:?US-OB Pelvis Limited w/ transvaginal-08/20/2024 2:34:06 PM Ordering Physician:Tyler Cisneros Final Report: INDICATION: Contractions, check cervical length TECHNIQUE: Ultrasound OB pelvis transabdominal and transvaginal. Real-time juarez-scale imaging of the fetus was performed as well as color Doppler and spectral Doppler analysis of the umbilical artery. COMPARISON: Ob ultrasound June 20, 2024 FINDINGS: Sonographic images demonstrate a single live intrauterine gestation with active movement in variable positioning. There is a posterior placenta without evidence of andrew placenta previa. The cervix is well visualized and closed measuring 4.2 centimeters without evidence of significant endocervical fluid. Cardiac activity of the fetus is appreciated with heart rate of 157 beats per minute. Normal amniotic fluid index with single deepest pocket of 3.8 centimeters. IMPRESSION.: 1. Closed cervix measuring 4.2 centimeters with normal amniotic fluid. 2. Demonstration of a live intrauterine gestation with a heart rate of 157 beats per minute. Dictated by Jalil Meeks MD @ 08/20/2024 2:49:50 PM (Electronic Signature) Discharge Plan Discharge Clinical Impression: Uterine contractions during Patient Disposition: Home, Self-Care Condition: Stable Instructions: Adriel Hines Contractions (ED), Early Labor Signs (ED) Additional Instructions: There is no evidence that the uterine tightening you are feeling is changing the cervix. If you do start to feel that the tightening is becoming painful or changing your breathing, would recommend re-evaluation. I would call OB clinic and get a follow-up within the next week, they would like to see you earlier. If you have further concerns or issues, please seek re-evaluation or contact the OB Clinic. Make sure you stay hydrated, drink adequate fluids. If you feel the uterine tightening or painless contractions are intensifying, try to rest and drink more. Activity Level: Activity as Tolerated Discharge Diet: Regular Prescriptions: No Action PNV-Select 27-1 mg tablet PO WesNate DHA 28 mg iron-1 mg -200 mg capsule PO Follow Up/Referrals: Provider,Not a Local [Primary Care Provider] - Stand Alone Forms: [employer] Info Instructions
--- NOTE | 2024-08-20 13:12 | CRLHL7_ITS ---
For Patients: As a result of the Century Cures Act, medical imaging exams and procedure reports are released immediately into your electronic medical record. You may view this report before your referring provider. If you have questions, please contact your health care provider. INDICATION: Contractions, check cervical length TECHNIQUE: Ultrasound OB pelvis transabdominal and transvaginal. Real-time juarez-scale imaging of the fetus was performed as well as color Doppler and spectral Doppler analysis of the umbilical artery. COMPARISON: Ob ultrasound June 20, 2024 FINDINGS: Sonographic images demonstrate a single live intrauterine gestation with active movement in variable positioning. There is a posterior placenta without evidence of andrew placenta previa. The cervix is well visualized and closed measuring 4.2 centimeters without evidence of significant endocervical fluid. Cardiac activity of the fetus is appreciated with heart rate of 157 beats per minute. Normal amniotic fluid index with single deepest pocket of 3.8 centimeters. IMPRESSION.: 1. Closed cervix measuring 4.2 centimeters with normal amniotic fluid. 2. Demonstration of a live intrauterine gestation with a heart rate of 157 beats per minute. Dictated by Jalil Meeks MD @ 08/20/2024 2:49:50 PM (Electronically Signed)
[2024-08-20 13:30] LABS: Appearance Urine Clear (Clear); Bilirubin Urine Negative (Negative); Blood Urine Negative (Negative); Color Urine Yellow (Yellow); Glucose Urine Negative (Negative); Ketones Urine Negative (Negative); Leukocyte Esterase Urine Negative (Negative); Nitrite Urine Negative (Negative); Protein Urine Negative (Negative); Specific Gravity Urine <= 1.005 (1.000-1.030); Urobilinogen Urine 0.2 (0.2-1.0); pH Urine 6.5 (5.0-8.5)
[2024-08-20 14:50] VITALS: BP 112/72; PULSE 68; RESP 16; O2SAT 99
== END 2024-08-20 14:52 | disposition home or self-care (01) ==
LOC: ED 14:40
PROVIDERS: Emergency Provider Family Medicine
DX: O47.02 False labor before 37 completed weeks of gestation, second trimester (principal); Z3A.18 18 weeks gestation of pregnancy
CPT/HCPCS: 76815; 76817; 81003; 99284

== ENCOUNTER 2024-08-27 14:26 | Outpatient (CLI) | payer BC, SELFPAY | END 2024-08-27 14:27 | disposition home or self-care (01) | LOC: US 14:26 | PROVIDERS: Visit Provider Obstetrics & Gynecology | DX: O09.522 Supervision of elderly multigravida, second trimester (principal); Z3A.19 19 weeks gestation of pregnancy | CPT/HCPCS: 76811 ==

== ENCOUNTER 2024-09-10 09:01 | Outpatient (CLI) | payer BC, SELFPAY ==
--- NOTE | 2024-09-10 09:15 | CRLHL7_ITS ---
For Patients: As a result of the Century Cures Act, medical imaging exams and procedure reports are released immediately into your electronic medical record. You may view this report before your referring provider. If you have questions, please contact your health care provider. INDICATION: Right Lower Extremity Swelling in . History of varicose veins. COMPARISON: None. TECHNIQUE: A compression venous ultrasound exam was performed of the right lower extremity using juarez-scale imaging, color Doppler and spectral Doppler analysis. FINDINGS: Sonographic imaging of the right lower extremity demonstrates normal compressibility and color Doppler venous blood flow within the common femoral vein, deep femoral vein, and the proximal greater saphenous vein. Within the thigh, the femoral vein is patent and compressible. At a lower level, the popliteal and posterior tibial veins also show normal compressibility and color Doppler venous blood flow. Incidental duplicated femoral vein noted. This is also patent. Limited imaging of the contralateral groin demonstrates a normal spectral waveform and color Doppler venous blood flow within the left common femoral vein. IMPRESSION: No evidence of deep vein thrombosis within the right lower extremity. No evidence of superficial thrombophlebitis within varicose veins. Dictated by Rodney Fuller MD @ 09/10/2024 10:42:57 AM (Electronically Signed)
== END 2024-09-10 09:02 | disposition home or self-care (01) ==
LOC: US 09:02
PROVIDERS: Visit Provider Registered Nurse
DX: O12.00 Gestational edema, unspecified trimester (principal)
CPT/HCPCS: 87086; 93971

== ENCOUNTER 2024-09-24 11:03 | Outpatient (CLI) | payer BC, SELFPAY | END 2024-09-24 11:04 | disposition home or self-care (01) | LOC: NFLDREF 11:04 | PROVIDERS: Visit Provider Obstetrics & Gynecology | DX: R00.2 Palpitations (principal) | CPT/HCPCS: 84443 ==

== ENCOUNTER 2024-10-09 13:29 | Outpatient (CLI) | payer BC, SELFPAY ==
[2024-10-09 13:50] VITALS: PULSE 66; O2SAT 97
[2024-10-09 13:55] VITALS: BP 99/54; PULSE 67
[2024-10-09 14:50] LABS: Appearance Urine Clear (Clear); Bilirubin Urine Negative (Negative); Blood Urine Negative (Negative); Color Urine Yellow (Yellow); Glucose Urine Negative (Negative); Ketones Urine Negative (Negative); Leukocyte Esterase Urine Negative (Negative); Nitrite Urine Negative (Negative); Protein Urine Negative (Negative); Urobilinogen Urine 0.2 (0.2-1.0); pH Urine 6.5 (5.0-8.5)
--- NOTE | 2024-10-09 18:41 | PC.OBNST ---
NST Note NST Note Start: 10/09/24 13:45 Freq: ONCE Status: Active Protocol: Document 10/09/24 15:10 WK (Rec: 10/09/24 18:41 WK No Response) NST Note 2 Para (# of births) 1 EDC 01/21/25 Gestational Age In 25 Weeks & 1 Days Weeks & Days Patient Presented Contractions/cramping,Decreased movement with Complaint(s) of Reactive Yes YFN Mai RNC Date 10/09/24 Reactive Yes RN Sugey RN Date 10/09/24 OB NST charge Yes Complete NST Note Yes via Write Note The provider's electronic signature indicates the NST is reactive/appropriate for gestational age. *Note to provider: If an addendum is required, open the patient's chart and click on the note under the Nurse/Allied Health tab.
== END 2024-10-09 15:30 | disposition home or self-care (01) ==
LOC: OB OUT 13:30 → OB 13:30
PROVIDERS: Visit Provider Obstetrics & Gynecology
DX: O47.02 False labor before 37 completed weeks of gestation, second trimester (principal); Z3A.25 25 weeks gestation of pregnancy
CPT/HCPCS: 59025; 81003; G0463

== ENCOUNTER 2024-10-29 08:10 | Outpatient (CLI) | payer BC, SELFPAY | END 2024-10-29 08:11 | disposition home or self-care (01) | LOC: NFLDREF 10-31 15:20 | PROVIDERS: Visit Provider Registered Nurse | DX: Z34.83 Encounter for supervision of other normal pregnancy, third trimester (principal) | CPT/HCPCS: 86592; 86593; 86780 ==

== ENCOUNTER 2024-11-11 07:56 | Outpatient (CLI) | payer BC, SELFPAY | END 2024-11-11 07:57 | disposition home or self-care (01) | PROVIDERS: Visit Provider Physician Assistant | DX: Z34.93 Encounter for supervision of normal pregnancy, unspecified, third trimester (principal); Z3A.29 29 weeks gestation of pregnancy | CPT/HCPCS: 80180; 86592 ==

== ENCOUNTER 2024-11-11 09:30 | Outpatient (CLI) | payer BC, SELFPAY ==
--- NOTE | 2024-11-11 10:00 | CRLHL7_ITS ---
For Patients: As a result of the Century Cures Act, medical imaging exams and procedure reports are released immediately into your electronic medical record. You may view this report before your referring provider. If you have questions, please contact your health care provider. OB ULTRASOUND FOLLOW-UP/LIMITED, 11/11/2024 CLINICAL HISTORY: Small for dates. COMPARISON: 08/27/2024, 08/20/2024, 06/20/2024. TECHNIQUE: Real time juarez scale imaging of the fetus was performed. Transabdominal imaging performed. FINDINGS: MICHELLE by US: 01/21/2025. GA: 29 weeks 6 days. Cervix: Not visualized. Positioning: Vertex. Amniotic Fluid: 6.3 cm SDP. Placenta: Technique: TA. Dopplers: Heart Rate: 134 bpm. BIOMETRY: BPD: 7.6 cm, 30 weeks 4 days. 62% HC: 28.3 cm, 31 weeks 0 days. 49% AC: 26.2 cm, 30 weeks 2 days. 59% FL: 5.5 cm, 29 weeks 1 day. 18% FL/AC Ratio: 21.14% HC/AC Ratio: 1.08. EFW: 1498 g, 3 lb 5 oz. Age by this US: 30 weeks 4 days. MICHELLE by this US: 01/16/2025. Percentile by MICHELLE: 43% IMPRESSION: 1. Sonographic gestational age 30 weeks 4 days and sonographic due date 01/16/2025. Sonographic age is 5 days ahead of the clinical age. 2. Estimated weight 43rd percentile. Abdominal circumference 59th percentile. Rodney Fuller M.D. Diagnostic Radiologist [email or web address] Transcribed: 11:17 am DW/Dictated by: Rodney Fuller MD @ 11/11/2024 10:52:00 AM (Electronically Signed)
== END 2024-11-11 09:31 | disposition home or self-care (01) ==
LOC: US 09:31
PROVIDERS: Visit Provider Physician Assistant
DX: O36.5930 Maternal care for other known or suspected poor fetal growth, third trimester, not applicable or unspecified (principal); Z3A.29 29 weeks gestation of pregnancy
CPT/HCPCS: 76816; 86592

== ENCOUNTER 2024-12-17 09:39 | Outpatient (CLI) | payer BC, SELFPAY ==
[2024-12-18 12:04] LABS: Strep B DNA Probe Negative (Negative)
[2024-12-18 12:08] LABS: Strep B Susceptibility Needed? No
== END 2024-12-17 09:40 | disposition home or self-care (01) ==
LOC: NFLDREF 09:40
PROVIDERS: Visit Provider Obstetrics & Gynecology
DX: Z34.93 Encounter for supervision of normal pregnancy, unspecified, third trimester (principal); Z3A.35 35 weeks gestation of pregnancy
CPT/HCPCS: 87081; 87653

== ENCOUNTER 2025-01-14 05:46 | Inpatient (IN) | payer BC, SELFPAY ==
[2025-01-14] VITALS (34 sets, daily range): BP systolic 99–118; BP diastolic 53–69; PULSE 49–63; RESP 16; TEMP 36.4–37.1; O2SAT 95–100; BMI 22.9
[2025-01-14] MEDS: LACTATED RINGERS 1000 ML 1,000 ML 1100 ML IV (06:33)
[2025-01-14 06:35] LABS: Hematocrit 42.6 % (33.0-51.0); Hemoglobin* 14.7 gm/dL (12.0-16.0); Immature Granulocytes Abs Auto 0.09 K/uL (0.00-0.30); Immature Granulocytes Pct Auto 1.1 %; Lymphocytes Absolute Auto 2.21 K/uL (0.90-2.90); Mean Corpuscular HGB Conc 35 gm/dL (32-36); Mean Corpuscular Hemoglobin 31 pg (26-34); Mean Corpuscular Volume 90 fL (80-100); RDW Coefficient of Variation % 12.5 % (11.5-15.5); Red Blood Count 4.72 m/uL (4.00-5.20); White Blood Count* 7.87 K/uL (4.50-11.00)
[2025-01-14 06:36] LABS: Slide Review Reflex No
--- NOTE | 2025-01-14 06:51 | P.LDBA_ITS ---
Subjective History of Present Illness Time Seen by Provider: 06:51 Date Seen: 01/14/25 Narrative: Patient is being admitted to Labor and Delivery for scheduled repeat delivery. She is a 34 year old at 39.0 weeks gestation. Her full history and physical was dictated by myself on 12/24/24. Please see this for details. No interval changes since she was last seen on Sunday. Specific Issues/Plans Partner: Jorje? H&P:?Dr. Hung on 12/24/24 #RPR 1:1, negative TPPA. Likely biological false positive. Repeat RPR and TPPA in 2-4 weeks. If negative TPPA at that time, that would confirm no syphilis infection. ordered 11/11/24: RPR nonreactive and TPPA negative # Hx of C/S? * considering repeat C/S at 39 weeks gestation (01/14/25)? * Consent signed on 12/24/24 #?Hx PP anxiety? #?Advanced maternal age? * Declines [place] test. * Level two ultrasound: Normal # Varicose veins in lower extremities. R>L. Increased swelling and tenderness in right. LE doppler 09/10: negative for deep or superficial clot. * Anticoagulation while inpatient after CD Imaging:??? 08/27/2024 level two ultrasound: Normal, no anomalies, normal growth and fluid. Posterior placenta. 11/11/2024 small for dates: SDP 6.3, EFW 43% Vaccinations:?? COVID: declined Flu: declined? Tdap: 11/11/24 RSV: N/A 32 week mental health: 11/25/2024 Last pap:? [Only high-risk abnormal pap results in problem list]? OB - Problem Based A/P Additional Plan (1) Varicose veins of both lower extremities: Status: Acute (2) AMA (advanced maternal age) multigravida 35+: Status: Acute (3) : Status: Acute (4) Hx of section: Status: Acute Plan - R/B/A and anticipated recovery reviewed again with patient. No additional question. - Hgb 14.7 - Plt 204 - T&S: O+, Antibody negative - Plan: Will proceed with plan delivery OB Exam Physical Exam Vital signs: Temp Pulse BP Pulse Ox 98.4 F 63 118/66 97 01/14/25 06:09 01/14/25 06:04 01/14/25 06:04 01/14/25 06:04 Narrative: Physical exam: General: No acute distress Psych: Alert and oriented x3, full affect HEENT: Normocephalic, atraumatic Lungs: Unlabored breathing Neuro: No focal deficit. Mentating appropriately Pelvic exam: Deferred
[2025-01-14] MEDS: LACTATED RINGERS 1000 ML 1,000 ML 125 ML IV (07:30)
--- NOTE | 2025-01-14 08:34 | PM.OBPRCCS ---
Procedure Time Seen by Provider: 08:34 Date of procedure: 01/14/25 Pre-op diagnosis: 1. History of delivery x 1 Post-op diagnosis: same Procedure Done: Global Will [facility] bill your pro fee for this procedure?: Yes Blood Loss Measurement Type: QBL (374 cc) Bakri Used: No IV fluids (mL): 1,700 Urine Output (mL): 250 Urine Output Comment: Clear Surgeon: Paula Hung MD Risk Control Specialist: CAIT Mascorro Anesthesia Type: Local and Spinal Procedure Description: DELIVERY BY SECTION Date of Service: 01/14/25 Delivery time: 802 Summary: Admitted for scheduled delivery at 39.0 weeks, repeat lower uterine transverse section, Pfannenstiel, Closed with suture, QBL 779 cc, No complications, Findings: Fascia densely adhered to rectus abdominus. Minimal filmy intra-abdominal adhesions. Normal uterus, bilateral ovaries and tubes 9/9 weight 7lb 4oz Primary Indication: 1. History of delivery x1 2. Declined TOLAC Procedures: Repeat Lower uterine transverse section Specimens Removed: Placenta Report: Prophylactic antibiotic, 2 g of Ancef was given before patient was taken to OR. After arrival to the operating room patient was placed in the supine position with left lateral tilt after administration of spinal anesthesia. She was prepped and draped in the usual sterile manner. Laparotomy A pfannenstiel incision was made through the anterior abdominal wall with #10 scalpel approximately 2 cm above the pubic symphysis. The incision was extended sharply with the #10 scalpel through the subcutaneous tissue to the level of fascia. The fascia was entered sharply with a #10 scalpel (Pfannenstiel) in the midline and extended in semi-elliptical fashion with Severino scissor. The underlying muscles were dissected off the overlying fascia by grasping the superior aspect of fascia with two bernard clamps and blunt dissection was used along the midline. The fascia was further from rectus muscle with Severino scissor and/or cautery. In similar fashion, the lower aspect of fascia was also grasped with two Bernard clamps and both blunt and sharp dissection was used to separate fascia from rectus muscle. Overall, fascia was densely adhered to the abdominis muscle. The rectus muscles were in the midline bluntly with Lidia's. The peritoneum was then entered sharply with Lidia's. The peritoneal incision was then extended superiorly and inferiorly under direct visualization with care being taken to avoid bladder and bowel. The peritoneal incision was enlarged sharply and bluntly by lateral traction from the surgeon's and registered nurse first assistant's hand. [place] retractor was inserted into the abdomen. Delivery A bladder flap was developed by grasping with Maltese forcep and enter with Metzenbaun scissor. Then sharp and blunt dissection with Metzenbaum scissor and fingers were performed. A low transverse hysterotomy was made then with #10 scalpel and extended laterally and cephalad with fingers in a low transverse fashion with Manu Sunshine technique with care being taken to avoid injury to the fetus. The amniotic cavity (membrane) was then entered with spontaneous rupture of membrane, and the amniotic fluid was noted to be clear, fetus was delivered cephalic. With delivery of the baby, no extension was noted. Placenta was delivered spontaneously with steady traction on cord and manual separation of placenta from uterine wall. Closure Uterine cavity was cleaned after placental delivery with lap sponge x 3. The hysterotomy was closed in two layers with stitches using 0 vicryl with continuous locking stitches and 0 monocryl in a continuous non locking manner. Hemostasis was achieved as needed with electrocautery. The ovaries/tubes/uterine surface were evaluated. Findings noted above. [place] retractor removed. Symone applied and hemostasis was confirmed again. Fascia was closed with running stitches using 0 loop PDS. Subcutaneous layer was irrigated. Hemostasis was checked for and found to be adequate. The subcutaneous layer was not placed as subcutaneous tissue <2 cm. The skin was closed with 4-0 monocryl subcuticular sutures . The incision was cleaned, Exofin applied, and Mepilex dressing placed. The procedure considered terminate at this time. Intraoperative Complications: None QBL: 374 cc Uterotonics/hemostatic agents: 30 u of pitocin bolus, 1g of TXA Disposition: The patient tolerated the procedure well. She was recovered in Obstetric PACU for close monitoring in stable condition, with a contracted uterus and normal transvaginal bleeding. The was sent to mother?s bedside. The placenta was not sent to pathology. Debrief with OR team performed and specimen reviewed at the conclusion of the procedure.
--- NOTE | 2025-01-14 09:10 | P.ANES_ITS ---
Anesthesia Charges Start Date/Time Anesthesia Start Date: 01/14/25 Anesthesia Start Time: 07:29 Stop Date/Time Anesthesia Stop Date: 01/14/25 Anesthesia Stop Time: 09:05 Coding CPT Codes CPT Codes: ANESTH CS DELIVERY - 21496 ([id number]) P2 - PATIENT W/MILD SYST DISEASE, QK - INSPECTOR EXHAUST EMISSIONS 2-4 CNCRNT ANES PROC
--- NOTE | 2025-01-14 09:10 | W.ANESCHARGE ---
Anesthesia Charges Start Date/Time Anesthesia Start Date: 01/14/25 Anesthesia Start Time: 07:29 Stop Date/Time Anesthesia Stop Date: 01/14/25 Anesthesia Stop Time: 09:05 Coding CPT Codes CPT Codes: ANESTH CS DELIVERY - 05524 ([id number]) P2 - PATIENT W/MILD SYST DISEASE, QK - DIRECTOR FAMILY 2-4 CNCRNT ANES PROC
--- NOTE | 2025-01-14 09:12 | P.NB_ITS ---
Nerve Block Nerve Block Time Seen by Provider: 08:55 Date Seen: 01/14/25 Type of block requested by surgeon for post-operative analgesia: TAP Side: bilateral Time out performed: Yes Verification of patient name: Yes Verification of date of : Yes Site marking: site marked Name of person performing procedure: Sonal Tovar, SARI Assistants, if any: SARBJIT Santos Continuous monitoring Was continuous monitoring of O2 sat, B/P, potline monitor, recorded every 15 mi nutes?: Yes Procedure Checklist: sterile prep, needles and gloves Ultrasound guided. Images saved: Yes Medications given in 5ml increments after negative aspiration: Marcaine %: 0.25 mL: 30 Needle gauge: 20 and Exparel mL: 10 Needle gauge: 20 Patient tolerated procedure well: Yes Block Charges Block Charge (with Pro Fee): ELKE Bilateral
--- NOTE | 2025-01-14 09:32 | P.ANES_ITS ---
Anesthesia Charges Start Date/Time Anesthesia Start Date: 01/14/25 Anesthesia Start Time: 07:29 Stop Date/Time Anesthesia Stop Date: 01/14/25 Anesthesia Stop Time: 09:05 Coding CPT Codes CPT Codes: ANESTH CS DELIVERY - 67104 ([id number]) QK - ROADMASTER 2-4 CNCRNT ANES PROC, QX - SALES STOCK ASSOCIATE SVC W/ MD MED DIRECTION, P2 - PATIENT W/MILD SYST DISEASE
--- NOTE | 2025-01-14 09:32 | W.ANESCHARGE ---
Anesthesia Charges Start Date/Time Anesthesia Start Date: 01/14/25 Anesthesia Start Time: 07:29 Stop Date/Time Anesthesia Stop Date: 01/14/25 Anesthesia Stop Time: 09:05 Coding CPT Codes CPT Codes: ANESTH CS DELIVERY - 34091 ([id number]) QK - HAND VIOLIN MAKER 2-4 CNCRNT ANES PROC, QX - PERSONNEL TECHNICIAN SVC W/ MD MED DIRECTION, P2 - PATIENT W/MILD SYST DISEASE
[2025-01-14] MEDS: OXYTOCIN 30 unit/500 ML in NS 30 UNIT/500 ML BAG 300 UNIT IVPB (12:25)
[2025-01-14 13:11] LABS: Hemoglobin* 15.0 gm/dL (12.0-16.0)
[2025-01-14] MEDS: ONDANSETRON 2 MG/ML inj 4 MG IVP (13:34)
[2025-01-14] MEDS: ACETAMINOPHEN 500 MG TABLET 1000 MG PO (18:01)
[2025-01-15] VITALS (11 sets, daily range): BP systolic 91–109; BP diastolic 54–66; PULSE 50–62; RESP 16–18; TEMP 36.5–37.1; O2SAT 95–98
[2025-01-15] MEDS: ACETAMINOPHEN 500 MG TABLET 1000 MG PO ×4 (01:03→19:26)
[2025-01-15 06:20] LABS: Hemoglobin* 12.8 gm/dL (12.0-16.0)
--- NOTE | 2025-01-15 07:23 | PM.OBPNVD1 ---
OB - PN:Subj Subjective Date Seen: 01/15/25 Narrative: Claudia is a 35 year old who was admitted for scheduled repeat ?. The patient feels much better today. PERALTA yesterday resolved about 10 pm last evening.?The pain is well controlled with current medications.?She has no new complaints.? Urinary output is adequate and she is voiding without difficulty.?Has a good appetite, is tolerating a general diet, is passing flatus, and has not had a bowel movement.? Has small amount of rubra lochia.? She is ambulating well, though asking for stand by assist when up for her comfort. No dizziness or light-headedness. She is and reports it is going well.? OB - PN: Obj Exam Physical Exam: Vital signs: Temp Pulse Resp BP Pulse Ox O2 Del Method 98.0 F 56 L 16 96/57 L 98 Room Air 01/15/25 04:54 01/15/25 04:54 01/15/25 04:54 01/15/25 04:54 01/15/25 04:54 01/15/25 04:54 Narrative: VSS GENERAL APPEARANCE:? normal affect, alert, no distress MOOD:? appropriate CHEST:? clear to auscultation HEART:? regular rate and rhythm ABDOMEN:? soft, non-tender the uterine fundus is 1 finger breadth below Umbilicus, Midline and is appropriate for the stage of recovery. EXTREMITIES:? normal and no edema Incision: surgical dressing intact with no surrounding erythema, abnormal induration or discharge on the dressing Hgb 12.8 today OB - PN: Obj Data Labs Labs: Laboratory Results - last 24 hr 01/14/25 01/14/25 01/15/25 06:28 12:57 06:04 Hgb 15.0 12.8 Blood Type O Positive Antibody Screen NEGATIVE OB - PN: A/P Delivery Assessment and Plan (1) S/P primary low transverse : Problem details: x2 Status: Acute (2) care and examination of lactating mother: Status: Acute Plan Comments: PP day #1 Routine care Abdominal binder requested for support Nursing to remove surgical dressing per protocol May see as desired Anticipate discharge 01/16/2025
[2025-01-15] MEDS: DOCUSATE SODIUM 100 MG CAPSULE PO (07:28)
[2025-01-15] MEDS: IBUPROFEN 600 MG TABLET PO (21:40)
[2025-01-16] MEDS: ACETAMINOPHEN 500 MG TABLET 1000 MG PO ×2 (02:20→09:25)
[2025-01-16 02:22] VITALS: BP 111/69; RESP 20; O2SAT 96
[2025-01-16] MEDS: IBUPROFEN 600 MG TABLET PO ×2 (03:32→10:27)
--- NOTE | 2025-01-16 09:02 | PM.OBDSVD1 ---
DS: Providers Provider Time Seen by Provider: 09:08 Date Seen: 01/16/25 Date of admission: 01/14/25 05:46 Primary care physician: Not a Local Provider Admitting Clinician: Paula Hung MD Attending Physician on discharge: Latanya Bains CNM Date of Discharge: 01/16/25 DS: Diagnosis Discharge Diagnosis (1) care and examination of lactating mother: Status: Acute (2) S/P primary low transverse : Status: Acute Problem details: x2 Exam Narrative: Exam Narrative: GENERAL APPEARANCE:? normal affect, alert, no distress? MOOD:? appropriate? CHEST:? clear to auscultation and percussion? HEART:? regular rate and rhythm? BREASTS: soft, nontender, no erythema, nipples intact? ABDOMEN:? soft, non-tender the uterine fundus is firm and is appropriate for the stage of recovery. Incision C/D/I, no erythema or exudate.? PERINEUM:? mild edema of the perineum.? EXTREMITIES:? normal and no edema? Const: Vital Signs, click to edit/add: Vital Signs - 24 hr 01/15/25 15:24 01/15/25 19:24 01/16/25 02:22 Temperature 97.7 F Pulse Rate [Pulse Oximeter] 56 L 62 Respiratory Rate 16 18 20 Blood Pressure [Ri ght Arm] 109/65 104/66 111/69 Pulse Oximetry 95 96 96 Oxygen Delivery Me thod Room Air Room Air OB - DS: Summary Hospital Course Hospital Course: The patient is a 35 year old G 2 now P 2001 at 39+2 weeks gestation that was admitted to the Center on 01/14/25 for RCS. She had an uncomplicated delivery. She delivered a viable male . She is breast and syringe feeding formula, declined donor milk. Plans to pump and bottlefeed. the patient has done well. Patient has no complaints. No active bleeding. Doing well. She is requesting discharge home.?States she does not plan to take any narcotic pain medication, but is agreeable to having Rx available in the pharmacy in case she needs it. Peripartum Data delivery method: Repeat Section Procedures: Procedures Operation Date: 01/14/25 07:15 Actual Procedure Side Surgeon p Repeat Section Paula Hung MD complications: none [place] Gender: Male Infant Discharge Plan: Home Status at Discharge Functional status at discharge: independent ambulation Overall status at discharge: patient is progressing back to baseline Time Spent with Patient Time attestation: Total time spent providing and/or coordinating discharge services: 30min Time spent: Greater than 30 minutes Discharge Plan Discharge Disposition: Home, Self-Care Date of Admission: 01/14/25 05:46 Attending Provider on Discharge: Latanya Bains Primary Care Provider: Provider,Not a Local Condition: Stable Anticipated Discharge Date/Time: 01/16/25 09:17 Discharge Medications: New docusate sodium 100 mg Capsule 100 mg PO DAILY PRN (Reason: constipation) Qty: 30 0RF acetaminophen 500 mg capsule 500 mg PO Q6H MDD 4g PRNQty: 100 0RF ibuprofen 600 mg Tablet 600 mg PO Q6H PRN (Reason: Pain) Qty: 60 0RF oxycodone 5 mg Tablet 5 - 10 mg PO Q4H PRN (Reason: Pain) Qty: 7 0RF Continued One A Day Women's DHA 28 mg iron- 800 mcg combo pack 1 pkg PO DAILY Discontinued ondansetron 4 mg tablet,disintegrating 4 mg PO Q6-8H PRN (Reason: nausea and vomiting) Qty: 10 0RF Discharge Orders: Discharge Order (Routine); Ordered 01/16/25 Ordered By: Latanya Bains Patient Education: OB Over the Counter Medication Information, OB /Breast Feeding Additional Instructions: Discharge instructions were reviewed with the patient including signs and symptoms of infection and home going medications? ?? Activity restrictions:? Lifting Restrictions: 20 pounds for 6 weeks? No high-impact or core exercises for 6 weeks.?? No not submerge incision under water X 2 weeks?? Nothing vaginally for 6 weeks: no tampons or intercourse? Do not drive while taking narcotic pain medication(s)? Off Work or School for 8 weeks? ?? Symptoms to report to doctor:? -Bleeding that saturates more than one pad per hour? -Passing clots larger than the size of a golf ball? -Pain not relieved by prescribed medication? -Fever above 100.4 degrees Fahrenheit? -A foul vaginal odor? -Difficulty in emotions, mood and functions? -Thoughts of hurting yourself and/or ? -Painful, reddened area in your breast? -Any drainage, redness or tenderness in your IV/epidural site? -Severe headache that doesn't improve after taking medications? -Changes in vision, including temporary loss of vision, blurred vision, and/or light sensitivity? -Upper abdominal pain (usually under ribs on the right side)? -Decrease in urination or painful, frequent urinating? -Chest pain? -Shortness of breath? -Tenderness or pain with redness and/swelling in the calf(s) of your leg? Follow up visits:?? 1. 1 week visit:? incision check.? 2. 2-week visit: discuss infant feeding/care concerns, review control options and screen for anxiety/depression.? 3. 6-week visit for an annual exam.? ?? consultation services are available to all mothers and babies for the first year after delivery.? To make an appointment, please call [phone].? Activity Level: Activity as Tolerated Discharge Diet: Regular Follow Up Appointments: Provider,Not a Local [Primary Care Provider, Family Practice] Paula Hung MD [Staff Physician, GRANULAR OPERATOR] Forms: Patient Belongings, MyHealth Info Instructions
[2025-01-16 09:15] VITALS: BP 106/67; PULSE 57; RESP 16; TEMP 36.8; O2SAT 97
[2025-01-16] MEDS: LANOLIN CREAM 1 APPLIC TOPICAL (09:45)
== END 2025-01-16 14:40 | disposition home or self-care (01) | DRG 540 ==
PROVIDERS: Admitting Provider Obstetrics & Gynecology; Visit Provider Obstetrics & Gynecology
PROC: 10D00Z1 Extraction of Products of Conception, Low, Open Approach (ICD-10-PCS; CPT 59514; principal; 2025-01-14 07:15)
DX: O34.211 Maternal care for low transverse scar from previous cesarean delivery (principal); O87.4 Varicose veins of lower extremity in the puerperium; I83.893 Varicose veins of bilateral lower extremities with other complications; G89.18 Other acute postprocedural pain; Z3A.39 39 weeks gestation of pregnancy; Z37.0 Single live birth
CPT/HCPCS: 01961; 36415; 64488; 85018; 85025; 86592; 86850; 86900; 86901; 94761; A4314; A9270; J0665; J0666; J0690; J1100; J1650; J1885; J2274; J2371; J2405; J2590; J3010; J7120

== ENCOUNTER 2025-01-27 11:48 | Outpatient (CLI) | payer BC, SELFPAY | END 2025-01-27 11:49 | disposition home or self-care (01) | LOC: NFLDREF 11:49 | PROVIDERS: Visit Provider Registered Nurse | DX: R39.89 Other symptoms and signs involving the genitourinary system (principal) | CPT/HCPCS: 87086 ==

== ENCOUNTER 2025-02-25 10:15 | Outpatient (CLI) | payer BC, SELFPAY ==
[2025-02-27 04:01] LABS: HPV Source Cervix
[2025-03-02 08:40] LABS: Pap Test Digital Imaging Done
== END 2025-02-25 10:16 | disposition home or self-care (01) ==
PROVIDERS: Visit Provider Registered Nurse
DX: Z12.4 Encounter for screening for malignant neoplasm of cervix (principal)
CPT/HCPCS: 87624; 87625; 88141; 88142; 88175